=== PATIENT | female | born 1945 | race Caucasian/White ===

== ENCOUNTER 2017-12-07 10:31 | Emergency (ER) | payer MEDICARE ==
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
[2017-12-07] MEDS: Albuterol/Ipratropium 3.0-0.5 MG/3 ML Neb Soln NEB ONE (12:18)
--- NOTE | 2017-12-07 12:39 | CR ---
Chest: Portable view of the chest was obtained. Comparison: No prior study. Heart size and mediastinum are normal. Lungs are clear. Bony structures are grossly intact. Impression: 1. Nothing acute is identified on portable chest x-ray. Diagnostic code #1
[2017-12-07] MEDS: Acetaminophen 325 MG Tab PO STA (12:43)
== END 2017-12-07 15:40 | disposition home or self-care (01) ==
LOC: JD.ED 10:31
DX: T59.891A Toxic effect of other specified gases, fumes and vapors, accidental (unintentional), initial encounter (principal); J68.8 Other respiratory conditions due to chemicals, gases, fumes and vapors; I10 Essential (primary) hypertension; J45.909 Unspecified asthma, uncomplicated; Z79.899 Other long term (current) drug therapy
CPT/HCPCS: 36415; 71045; 80053; 82553; 83735; 83880; 84484; 85025; 93005; 99285; A9270; 93010; 99284-25

== ENCOUNTER 2017-12-19 15:01 | Emergency (ER) | payer MEDICARE ==
[2017-12-19] MEDS ORDERED: predniSONE 20 MG Tab PO ONE (15:44)
[2017-12-19] MEDS ORDERED: Ketorolac 60 MG/2 ML SDV IM ONE (15:44)
[2017-12-19] MEDS ORDERED: Acetaminophen/HYDROcodone 325-5 MG Tab PO ONE (15:44)
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
== END 2017-12-19 19:30 | disposition home or self-care (01) ==
LOC: JD.ED 15:01
DX: M54.41 Lumbago with sciatica, right side (principal); I10 Essential (primary) hypertension; J45.909 Unspecified asthma, uncomplicated; Z79.899 Other long term (current) drug therapy
CPT/HCPCS: 96372; 99284; A9270; J1885; 99283

== ENCOUNTER 2019-03-01 23:09 | Emergency (ER) | payer MEDICARE, MEDICAID ==
--- NOTE | 2019-03-01 23:51 | EDM.PDOC ---
ED HPI GENERAL MEDICAL PROBLEM - General Chief Complaint: Allergic Reaction Stated Complaint: ALLERGIC REACTION Time Seen by Provider: 03/01/19 23:51 Source of Information: Reports: Patient, Other History Limitations: Reports: No Limitations (Friends) - History of Present Illness INITIAL COMMENTS - FREE TEXT/NARRATIVE: 73-year-old female presents the ED with diffuse swelling of her upper lip and her tongue. She states her upper lip became somewhat swollen one half side last evening but today the entire lip is become more swollen as the day has gone on and she appreciated that her tongue was swelling as well. She has no trouble with phonation or swallowing. Any discomfort in her chest wheezing or shortness of breath. No urticaria or erythema of the skin. She had to be persuaded quite aggressively by her friends to come to the hospi One of her Friends gave her 50 mg of Kristin 2 hours before coming to the ED and hasn't made any difference. Onset: Gradual Onset Date: 02/28/19 (First noted half of her lip swelling up a bit last evening.) Duration: Hour(s):, Getting Worse Location: Reports: Face (Swelling of her upper lip mildly of her lower lip and her tongue. I.e. angioedema). Denies: Chest Quality: Reports: Other (Feels pressure some numbness and tingling. 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: Other (see below) (Benadryl 50 mg about 2 hours ago) - Related Data Allergies Allergy/AdvReac Type Severity Reaction Status Date / Time No Known Allergies Allergy Verified 03/01/19 23:16 Home Meds: Home Meds Cholecalciferol (Vitamin D3) [Vitamin D3] 4,000 unit PO DAILY 12/07/17 [History] Doxepin [SINEquan] 10 mg PO BEDTIME PRN 12/07/17 [History] Fesoterodine Fumarate [Toviaz] 8 mg PO DAILY 12/07/17 [History] Furosemide [Lasix] 20 mg PO DAILY PRN 12/07/17 [History] Levalbuterol Tartrate [Xopenex HFA] 1 puff INH Q6H PRN 12/07/17 [History] Losartan Potassium 100 mg PO DAILY 12/07/17 [History] Magnesium Chloride [Slow-Mag] 71.5 mg PO DAILY #60 tablet. 12/07/17 [Rx] Metoprolol Succinate [Toprol XL 100mg] 50 mg PO DAILY 12/07/17 [History] Venlafaxine HCl [Venlafaxine ER] 150 mg PO DAILY 12/07/17 [History] Acetaminophen/HYDROcodone [[place]land 325-5 MG] 1 tab PO Q6H PRN #20 tablet 12/19/17 [Rx] Fluticasone Propionate [Flonase] 1 spray NASBOTH DAILY 12/19/17 [History] Methyl B12 Plus. 1 tab PO DAILY 12/19/17 [History] Prednisone [IJD: predniSONE] 20 mg PO WITHBREAKFAST #5 tab 12/19/17 [Rx] Past Medical History HEENT History: Reports: Impaired Vision Other HEENT History: Wears glasses Cardiovascular History: Reports: Hypertension Respiratory History: Reports: Asthma [employer] History: Reports: Endometriosis Musculoskeletal History: Reports: Osteoarthritis Psychiatric History: Reports: Anxiety - Past Surgical History HEENT Surgical History: Reports: Tonsillectomy GI Surgical History: Reports: Colonoscopy, EGD Female Surgical History: Reports: Hysterectomy, Salpingo-Oophorectomy Social & Family History - Tobacco Use Smoking Status *Q: Former Smoker Used Tobacco, but Quit: Yes Month/Year Tobacco Last Used: 1998 - Recreational Drug Use Recreational Drug Use: No - Living Situation & Occupation Living situation: Reports: Occupation: Retired ED ROS ALLERGIC REACTION - Review of Systems Review Of Systems: See Below Constitutional: Denies: Fever, Chills, Malaise, Weakness, Fatigue, Decreased Appetite, Weight Loss HEENT: Reports: Glasses Respiratory: Denies: Shortness of Breath, Wheezing, Pleuritic Chest Pain, Cough , Sputum Cardiovascular: Reports: Blood Pressure Problem. Denies: Chest Pain, Claudication, Dyspnea on Exertion, Edema, Lightheadedness, Orthopnea Endocrine: Reports: No Symptoms GI/Abdominal: Reports: No Symptoms : Reports: Frequency (On Lasix.) Musculoskeletal: Reports: Joint Pain (Knees hips and lower back at times) Skin: Reports: Other (Swelling of her upper and lower lip and her tongue.) Neurological: Reports: No Symptoms Psychiatric: Reports: No Symptoms ED EXAM GENERAL NO PERIP PULSE - Physical Exam Exam: See Below Exam Limited By: No Limitations General Appearance: Alert, WD/WN, No Apparent Distress, Other (She has obvious swelling of her upper lip both sides. The lower lip is listed but less noticeable to be mildly swollen.) Eye Exam: Bilateral Eye: Normal Inspection, Periorbital Changes (No periorbital edema or swelling.) Ears: Normal External Exam Nose: Normal Inspection Throat/Mouth: Other (Tongue is mildly swollen and thickened. No airway compromise) Head: Atraumatic (. The floor of her mouth is normal. The uvula is normal as well.), Normocephalic Neck: Normal Inspection, Supple, Non-Tender, Full Range of Motion, Carotid Bruit (She has a right carotid bruit but is referred from her heart as she has aortic stenosis murmur grade 2/6.). No: Lymphadenopathy (L), Lymphadenopathy (R ) Respiratory/Chest: No Respiratory Distress, Lungs Clear, Normal Breath Sounds, No Accessory Muscle Use Cardiovascular: Normal Peripheral Pulses, Regular Rate, Rhythm, No Edema, No Gallop, Systolic Murmur (Patient has a grade 2/6 systolic ejection murmur which is holistic and is best heard left lower sternal border but radiates to the right side of the sternum and into her right carotid artery. Patient is not aware that she has a murmur. Patient advised that she needs follow-up and an echocardiogram.) GI/Abdominal: Normal Bowel Sounds, Soft, Non-Tender, No Organomegaly, No Abnormal Bruit, No Mass, Pelvis Stable Back Exam: Normal Inspection, Full Range of Motion Extremities: Normal Inspection, Normal Range of Motion, Non-Tender. No: Pedal Edema Neurological: Alert, Oriented, CN II-XII Intact, Normal Cognition, Normal Gait Psychiatric: Normal Affect, Normal Mood Skin Exam: Warm, Dry, Intact, Normal Color, No Rash, Other (Angioedema involving upper lip and to a lesser extent her lower lip and her tongue.) Course - Vital Signs Last Recorded V/S: Last Vital Signs Temp 37.0 C 03/01/19 23:17 Pulse 78 03/01/19 23:17 Resp 18 03/01/19 23:17 BP 151/79 H 03/01/19 23:17 Pulse Ox 97 03/01/19 23:17 - Radiology Interpretation Free Text/Narrative:: 73-year-old female presents to the ED with gradually swelling of her right clive- lip and then both sides of her upper lip over today. She is also noted some mild swelling of her lower lip and upper tongue over the last 16 hours. No trouble with phonation or swallowing or eating. Examination confirms angioedema of the lips and tongue and no significant swelling of the floor the mouth or the uvula no evidence of airway compromise. On examination of her med list she is on losartan. This likely referred represents an allergy to this medication with angioedema edema developing. She is currently on 100 mg a day. It is to be stopped and she was advised that the swelling of her lips and tongue should dissipate gradually over the next 36-72 hours. His get worse she is to return to the ED where she would receive fresh frozen plasma. This is highly unlikely since symptoms started last evening. The problem is she did take her losartan dosage early this morning. She will follow-up in the clinic in a week's time to see if she will need additional medication to control her blood pressure and she is going to need follow-up echocardiogram due to aortic stenosis murmur identified on exam today. Advised she cannot take angiotensin receptor blockers or angiotensin-converting enzyme inhibitors in the future. Departure - Departure Time of Disposition: 00:14 Disposition: Home, Self-Care 01 Condition: Fair Clinical Impression: Angioedema of lips Qualifiers: Encounter type: initial encounter Qualified Code(s): T78.3XXA - Angioneurotic edema, initial encounter - Discharge Information *PRESCRIPTION DRUG MONITORING PROGRAM REVIEWED*: Not Applicable *COPY OF PRESCRIPTION DRUG MONITORING REPORT IN PATIENT [place]ENRO[place]: Not Applicable Instructions: Angioedema, [id number] Referrals: Marilyn Bai NP [Primary Care Provider] - Forms: ED Department Discharge Additional Instructions: Evaluation in the emergency room tonight in regards to noted swelling particularly of your upper lip involving both sides of the lip mildly of the lower lip and mildly of the tongue. This is an allergic reaction, angioedema. It usually affects? The tongue and sometimes the floor the mouth and sometimes can compromise the airway. Symptoms started last evening but worse tonight. No evidence of any other allergic reaction involving the lungs or skin identified on exam. Erazo is strongly suspected this allergic reaction is to one of your medications called Losartan. This medication is called an ARB--which stands for angiotensin receptor philip. There is another family called angiotensin- converting enzyme inhibitors which we call HALIMA-inhibitors. Both of these medications can cause angioedema involving the tongue and lips etc. This medication is therefore to be stopped. You're lips and tongue will likely return to normal in the next 36-72 hours. If swelling of the tongue worsens or you are having any trouble breathing or swallowing he would need to return to the emergency room immediately. This is felt to be unlikely to occur since symptoms started yesterday and have only gradually intensified. He will need to follow-up with your personal care physician in the proximally 7-10 days time to have a blood pressure check to see if they losartan medication needs to be replaced by another pressure pill. You are considered allergic to all halima inhibitors and ARB medications.
== END 2019-03-02 00:38 | disposition home or self-care (01) ==
LOC: JD.ED 23:09
DX: T78.3XXA Angioneurotic edema, initial encounter (principal); I10 Essential (primary) hypertension; F41.9 Anxiety disorder, unspecified; Z79.899 Other long term (current) drug therapy; Z87.891 Personal history of nicotine dependence
CPT/HCPCS: 99283

== ENCOUNTER 2019-06-25 13:32 | Inpatient (IN) | payer MEDICARE, MEDICAID ==
--- NOTE | 2019-06-25 15:39 | CT ---
Head CT Technique: Multiple axial sections through the brain were obtained. Intravenous contrast was not utilized. Comparison: No previous intracranial imaging. Findings: Ventricles along with basal cisterns and sulci over the convexities are mildly prominent. No abnormal parenchymal densities are seen. No evidence of intracranial hemorrhage. No midline shift or mass effect is seen. Bone window settings were reviewed which show the visualized mastoid sinuses and paranasal sinuses to appear clear. No acute calvarial abnormality is seen. Impression: 1. Nothing acute is appreciated on noncontrast head CT exam. Mild generalized atrophy is seen. Diagnostic code #2
--- NOTE | 2019-06-25 16:01 | EDM.PDOC ---
ED HPI GENERAL MEDICAL PROBLEM - General Chief Complaint: General Stated Complaint: [facility] Time Seen by Provider: 06/25/19 15:06 Source of Information: Reports: Patient History Limitations: Reports: No Limitations - History of Present Illness INITIAL COMMENTS - FREE TEXT/NARRATIVE: Patient is a 73-year-old female who presents the ED complaining of left eye swelling and bruising after falling yesterday while using a walker. It is unknown when the patient fell. She states she was walking to the bathroom to get cleaned up and believes the walker got caught on something causing her to lose her balance and fall forward hitting her face on the floor. She denies any loss of conscious. She denies any neck pain, back pain, pain to extremities, chest pain, shortness of breath, dysuria, palpitations, dizziness, or any pain to the extremities after the fall or prior. She was unable to get up on her own accord. She does carry a history of increased swelling to her lower extremities with venous stasis ulcers. She states the left leg is normally more swollen in comparison to the right. Again she is just more sore due to the inability to get up on her own accord. She was found by her the home health nurse and also her neighbor this morning. Patient recalls all events prior and after. She is on no blood thinners. She has been taking Lasix as prescribed for the edema to her lower extremities. Generalized Pain Score (Numeric/FACES): 8 - Related Data Allergies Allergy/AdvReac Type Severity Reaction Status Date / Time No Known Allergies Allergy Verified 03/01/19 23:16 Home Meds: Home Meds Cholecalciferol (Vitamin D3) [Vitamin D3] 4,000 unit PO DAILY 12/07/17 [History] Doxepin [SINEquan] 10 mg PO BEDTIME PRN 12/07/17 [History] Fesoterodine Fumarate [Toviaz] 8 mg PO DAILY 12/07/17 [History] Furosemide [Lasix] 20 mg PO DAILY PRN 12/07/17 [History] Levalbuterol Tartrate [Xopenex HFA] 1 puff INH Q6H PRN 12/07/17 [History] Losartan Potassium 100 mg PO DAILY 12/07/17 [History] Magnesium Chloride [Slow-Mag] 71.5 mg PO DAILY #60 tablet. 12/07/17 [Rx] Metoprolol Succinate [Toprol XL 100mg] 50 mg PO DAILY 12/07/17 [History] Venlafaxine HCl [Venlafaxine ER] 150 mg PO DAILY 12/07/17 [History] Acetaminophen/HYDROcodone [[place] 325-5 MG] 1 tab PO Q6H PRN #20 tablet 12/19/17 [Rx] Fluticasone Propionate [Flonase] 1 spray NASBOTH DAILY 12/19/17 [History] Methyl B12 Plus. 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 ED EXAM, GENERAL - Physical Exam Exam: See Below Exam Limited By: No Limitations General Appearance: Alert, WD/WN, No Apparent Distress Eye Exam: Bilateral Eye: Normal Inspection, Nystagmus (none noted), PERRL Ears: Hearing Grossly Normal Nose: Normal Inspection, Normal Mucosa, No Blood Throat/Mouth: Normal Inspection, Normal Oropharynx, Normal Voice, No Airway Compromise Head: Normocephalic, Facial Swelling (Left orbit), Facial Tenderness (Left orbit with black eye present.) Neck: Normal Inspection, Supple, Non-Tender, Full Range of Motion Respiratory/Chest: No Respiratory Distress, Lungs Clear, Normal Breath Sounds, No Accessory Muscle Use, Chest Non-Tender Cardiovascular: Normal Peripheral Pulses, Regular Rate, Rhythm, No Murmur Peripheral Pulses: 2+: Radial (L), Radial (R) GI/Abdominal: Normal Bowel Sounds, Soft, Non-Tender, No Organomegaly, No Distention Back Exam: Normal Inspection Extremities: Normal Range of Motion, Pedal Edema, Other (Venous stasis ulcers with redness present to the lower extremities bilaterally. Increasing pain with palpation of the posterior aspect of her legs with no ecchymosis or increased warmth noted.) Neurological: Alert, Oriented, CN II-XII Intact, Normal Cognition, No Motor/ Sensory Deficits Psychiatric: Normal Affect, Normal Mood Skin Exam: Warm, Dry Course - Vital Signs Last Recorded V/S: Last Vital Signs Temp 98 F 06/25/19 21:12 Pulse 66 06/25/19 21:12 Resp 16 06/25/19 21:12 BP 158/74 H 06/25/19 21:24 Pulse Ox 95 06/25/19 21:12 - Orders/Labs/Meds Orders: Active Orders 24 hr Category Date Time Status Admission Status [Patient Status] [ADT] Routine ADT 06/25/19 20:17 Active EKG Documentation Completion [RC] ASDIRECTED Care 06/25/19 13:53 Active Knee 3V Lt [CR] Stat Exams 06/25/19 19:12 Taken Knee 3V Rt [CR] Stat Exams 06/25/19 18:31 Taken CULTURE URINE [RM] Stat Lab 06/25/19 20:11 Ordered EKG 12 Lead [EK] Stat Ther 06/25/19 13:53 Ordered Medication Orders Acetaminophen (Tylenol) 650 mg PO Q4H PRN PRN Reason: Pain (Mild 1-3)/fever Albuterol/Ipratropium (Duoneb 3.0-0.5 Mg/3 Ml) 3 ml NEB Q4H PRN PRN Reason: Shortness Of Breath/wheezing Bisacodyl (Dulcolax) 5 mg PO DAILY PRN PRN Reason: Constipation Docusate Sodium (Colace) 100 mg PO BID PRN PRN Reason: Constipation Enoxaparin Sodium (Lovenox) 40 mg SUBCUT DAILY [facility] Hydralazine HCl (Apresoline) 20 mg IVPUSH Q4H PRN PRN Reason: Hypertension Hydromorphone HCl (Dilaudid) 0.25 mg IVPUSH Q2H PRN PRN Reason: Pain (severe 7-10) Promethazine HCl 6.25 mg/ (Sodium Chloride) 50.25 mls @ 100 mls/hr IV Q6H PRN PRN Reason: Nausea/Vomiting Sodium Chloride (Normal Saline) 1,000 mls @ 50 mls/hr IV ASDIRECTED [facility] Ceftriaxone Sodium 1 gm/ (Sodium Chloride) 100 mls @ 200 mls/hr IV Q24H [facility] Metoprolol Tartrate (Lopressor) 5 mg IVPUSH Q4H PRN PRN Reason: Tachycardia Ondansetron HCl (Zofran) 4 mg IV Q6H PRN PRN Reason: Nausea/Vomiting Pantoprazole Sodium (Protonix Iv) 40 mg IV Q12HR [facility] Polyethylene Glycol (Miralax) 17 gm PO DAILY PRN PRN Reason: Constipation Saccharomyces Boulardii (Florastor) 250 mg PO DAILY [facility] Senna/Docusate Sodium (Senna Plus) 1 tab PO BID PRN PRN Reason: Constipation Temazepam (Restoril) 15 mg PO BEDTIME PRN PRN Reason: Sleep Labs: Laboratory Tests 06/25/19 06/25/19 06/25/19 Range/Units 14:34 14:34 14:34 WBC 6.95 (3.98-10.04) K/mm3 RBC 3.82 L (3.98-5.22) M/mm3 Hgb 11.9 (11.2-15.7) gm/dl Hct 36.9 (34.1-44.9) % MCV 96.6 H (79.4-94.8) fl MCH 31.2 (25.6-32.2) pg MCHC 32.2 (32.2-35.5) g/dl RDW Std Deviation 47.8 H (36.4-46.3) fL Plt Count 196 (182-369) K/mm3 MPV 9.9 (9.4-12.3) fl Neut % (Auto) 55.1 (34.0-71.1) % Lymph % (Auto) 31.9 (19.3-51.7) % [place] % (Auto) 11.7 (4.7-12.5) % Eos % (Auto) 0.9 (0.7-5.8) Baso % (Auto) 0.3 (0.1-1.2) % Neut # (Auto) 3.83 (1.56-6.13) K/mm3 Lymph # (Auto) 2.22 (1.18-3.74) K/mm3 [place] # (Auto) 0.81 H (0.24-0.36) K/mm3 Eos # (Auto) 0.06 (0.04-0.36) K/mm3 Baso # (Auto) 0.02 (0.01-0.08) K/mm3 Sodium 142 (136-145) mEq/L Potassium 3.5 (3.5-5.1) mEq/L Chloride 103 (98-107) mEq/L Carbon Dioxide 28 (21-32) mEq/L Anion Gap 14.5 (5-15) BUN 23 H (7-18) mg/dL Creatinine 1.0 (0.55-1.02) mg/dL Est Cr Clr Drug Dosing 34.91 mL/min Estimated GFR (MDRD) 54 (>60) mL/min BUN/Creatinine Ratio 23.0 H (14-18) Glucose 106 (83-115) mg/dL Calcium 8.8 (8.5-10.1) mg/dL Magnesium (1.8-2.4) mg/dl Total Bilirubin 1.5 H (0.2-1.0) mg/dL AST 24 (15-37) U/L ALT 12 L (14-59) U/L Alkaline Phosphatase 85 (46-116) U/L Creatine Kinase (26-192) U/L Troponin I 0.052 (0.00-0.056) ng/mL C-Reactive Protein 1.7 H* (<1.0) mg/dL Total Protein 6.1 L (6.4-8.2) g/dl Albumin 3.3 L (3.4-5.0) g/dl Globulin 2.8 gm/dL Albumin/Globulin Ratio 1.2 (1-2) Urine Color (Yellow) Urine Appearance (Clear) Urine pH (5.0-8.0) Ur Specific [place] (1.005-1.030) Urine Protein (Negative) Urine Glucose (UA) (Negative) Urine Ketones (Negative) Urine Occult Blood (Negative) Urine Nitrite (Negative) Urine Bilirubin (Negative) Urine Urobilinogen (0.2-1.0) Ur Leukocyte Esterase (Negative) Urine RBC (0-5) /hpf Urine WBC (0-5) /hpf Ur Squamous Epith Cells (0-5) /hpf Urine Bacteria (FEW) /hpf Urine Mucus (FEW) /hpf 06/25/19 06/25/19 06/25/19 Range/Units 14:34 14:56 16:15 WBC (3.98-10.04) K/mm3 RBC (3.98-5.22) M/mm3 Hgb (11.2-15.7) gm/dl Hct (34.1-44.9) % MCV (79.4-94.8) fl MCH (25.6-32.2) pg MCHC (32.2-35.5) g/dl RDW Std Deviation (36.4-46.3) fL Plt Count (182-369) K/mm3 MPV (9.4-12.3) fl Neut % (Auto) (34.0-71.1) % Lymph % (Auto) (19.3-51.7) % [place] % (Auto) (4.7-12.5) % Eos % (Auto) (0.7-5.8) Baso % (Auto) (0.1-1.2) % Neut # (Auto) (1.56-6.13) K/mm3 Lymph # (Auto) (1.18-3.74) K/mm3 [place] # (Auto) (0.24-0.36) K/mm3 Eos # (Auto) (0.04-0.36) K/mm3 Baso # (Auto) (0.01-0.08) K/mm3 Sodium (136-145) mEq/L Potassium (3.5-5.1) mEq/L Chloride (98-107) mEq/L Carbon Dioxide (21-32) mEq/L Anion Gap (5-15) BUN (7-18) mg/dL Creatinine (0.55-1.02) mg/dL Est Cr Clr Drug Dosing mL/min Estimated GFR (MDRD) (>60) mL/min BUN/Creatinine Ratio (14-18) Glucose (83-115) mg/dL Calcium (8.5-10.1) mg/dL Magnesium 1.1 L (1.8-2.4) mg/dl Total Bilirubin (0.2-1.0) mg/dL AST (15-37) U/L ALT (14-59) U/L Alkaline Phosphatase (46-116) U/L Creatine Kinase 363 H (26-192) U/L Troponin I (0.00-0.056) ng/mL C-Reactive Protein (<1.0) mg/dL Total Protein (6.4-8.2) g/dl Albumin (3.4-5.0) g/dl Globulin gm/dL Albumin/Globulin Ratio (1-2) Urine Color Yellow (Yellow) Urine Appearance Cloudy H (Clear) Urine pH 7.0 (5.0-8.0) Ur Specific [place] 1.020 (1.005-1.030) Urine Protein 1+ H (Negative) Urine Glucose (UA) Negative (Negative) Urine Ketones Trace H (Negative) Urine Occult Blood 1+ H (Negative) Urine Nitrite Positive H (Negative) Urine Bilirubin Negative (Negative) Urine Urobilinogen 0.2 (0.2-1.0) Ur Leukocyte Esterase 2+ H (Negative) Urine RBC 5-10 H (0-5) /hpf Urine WBC 50-75 H (0-5) /hpf Ur Squamous Epith Cells 0-5 (0-5) /hpf Urine Bacteria Many H (FEW) /hpf Urine Mucus Few (FEW) /hpf Meds: Medications Generic Name Dose Route Start Last Admin Trade Name Freq PRN Reason Stop Dose Admin Acetaminophen 650 mg 06/25/19 21:55 Tylenol PO Q4H PRN Pain (Mild 1-3)/fever Albuterol/Ipratropium 3 ml 06/25/19 21:55 Duoneb 3.0-0.5 Mg/3 Ml NEB Q4H PRN Shortness Of Breath/wheezing Bisacodyl 5 mg 06/25/19 21:55 Dulcolax PO DAILY PRN Constipation Docusate Sodium 100 mg 06/25/19 21:55 Colace PO BID PRN Constipation Enoxaparin Sodium 40 mg 06/26/19 09:00 Lovenox SUBCUT DAILY [facility] Hydralazine HCl 20 mg 06/25/19 22:01 Apresoline IVPUSH Q4H PRN Hypertension Hydromorphone HCl 0.25 mg 06/25/19 21:55 Dilaudid IVPUSH Q2H PRN Pain (severe 7-10) Promethazine HCl 6.25 mg/ 50.25 mls @ 100 mls/hr 06/25/19 21:55 Sodium Chloride IV Q6H PRN Nausea/Vomiting Sodium Chloride 1,000 mls @ 50 mls/hr 06/25/19 22:00 Normal Saline IV ASDIRECTED [facility] Ceftriaxone Sodium 1 gm/ 100 mls @ 200 mls/hr 06/26/19 09:00 Sodium Chloride IV Q24H [facility] Metoprolol Tartrate 5 mg 06/25/19 22:01 Lopressor IVPUSH Q4H PRN Tachycardia Ondansetron HCl 4 mg 06/25/19 21:55 Zofran IV Q6H PRN Nausea/Vomiting Pantoprazole Sodium 40 mg 06/26/19 09:00 Protonix Iv IV Q12HR [facility] Polyethylene Glycol 17 gm 06/25/19 21:55 Miralax PO DAILY PRN Constipation Saccharomyces Boulardii 250 mg 06/26/19 09:00 Florastor PO DAILY [facility] Senna/Docusate Sodium 1 tab 06/25/19 21:55 Senna Plus PO BID PRN Constipation Temazepam 15 mg 06/25/19 21:55 Restoril PO BEDTIME PRN Sleep Discontinued Medications Generic Name Dose Route Start Last Admin Trade Name Freq PRN Reason Stop Dose Admin Hydrocodone Bitart/Acetaminophen 1 tab 06/25/19 18:31 06/25/19 18:45 [place] 325-5 Mg PO 06/25/19 18:32 1 tab ONETIME ONE Administration Magnesium Sulfate 2 gm/ Premix 50 mls @ 25 mls/hr 06/25/19 17:12 06/25/19 17: 41 IV 06/25/19 19:11 25 mls/hr ONETIME ONE Administration Ceftriaxone Sodium 2 gm/ 100 mls @ 200 mls/hr 06/25/19 20:11 Sodium Chloride IV 06/25/19 20:40 ONETIME ONE Ceftriaxone Sodium 2 gm/ 100 mls @ 200 mls/hr 06/25/19 20:22 06/25/19 20:27 Sodium Chloride IV 06/25/19 20:51 200 mls/hr NOW ONE Administration - Re-Assessments/Exams Free Text/Narrative Re-Assessment/Exam: Due to multiple patients within the ED. Time to evaluation was delayed. Standing orders were placed: CBC, chem 14, CPK, CRP, and head CT without contrast ordered. EKG was ordered as well. Vital signs are stable. She is alert and oriented 3. I'm concerned about the pain to the posterior aspect her legs with increased swelling to the left and incomparision to the right. She has no history of DVT or PE. Her O2 sats are 92 % on room air she was placed on O2. She denies any chest pain or shortness of breath. I will go ahead and obtain a troponin, magnesium, and also vl duplex lower extremities. Head CT impression: Nothing acute is appreciated on noncontrast head CT exam. Generalized atrophy is seen. EKG impression: Sinus rhythm at a rate of 84 with a few PVCs. No acute ST changes noted. VL duplex impression: No evidence of deep venous thrombosis within either the right or left lower extremities. Popliteal cyst is noted on the left side. Labs reviewed: CMP was essentially normal. Patient's total bilirubin was 1.5. LFTs no concern. Troponin 0.052. CRP is 1.7. CK is 363. Magnesium is 1.1. CBC essentially normal. UA has been ordered. I ordered 2 g of magnesium IV. Patient is on magnesium supplement. 06/25/19 18:15 No UA has been obtained at this point. Patient has no voiding symptomatology. I will discharge her home with instructions as documented. She will see her PCP in 2-3 days for reevaluation. Return precautions were discussed with the patient. She had no further questions concerns and agrees with plan. She feels safe on returning home. Patient is ready be discharged home and per nursing started complaining of right knee pain. Upon examination patient had no pain to the knee. All pain was along the posterior calf region bilaterally. Nursing staff has ordered a x-ray of the right knee and also one [place] 5-325 by mouth 1912 x-ray tech has come to do the x-ray of the right knee. Patient now complains of the left knee hurting. Left knee x-ray has been ordered. X-rays of the right knee and left knee reviewed with Dr. Asencio with no acute bony abnormalities. Final interpretation is pending. 2012 Per nursing staff patient is not safe to go home on her own accord. She had difficulty in standing from bedside. I have spoken with Dr. Garza. He will speak with social sciences lecturer to see if it will be difficult for placement. UA did come back positive for infection. Urine culture has been ordered. Ordered rocephin [address] Garza has called back and accepted the patient. Orders have been placed. Departure - Departure Time of Disposition: 17:11 Disposition: Admitted As Inpatient 64 Condition: Good Clinical Impression: Elevated CK, Muscle soreness, Status post fall, Contusion of unspecified part of head, initial encounter UTI (urinary tract infection) Qualifiers: Urinary tract infection type: site unspecified Hematuria presence: with hematuria Qualified Code(s): N39.0 - Urinary tract infection, site not specified - Discharge Information - My Orders Last 24 Hours: My Active Orders 06/25/19 13:53 EKG Documentation Completion [RC] ASDIRECTED EKG 12 Lead [EK] Stat 06/25/19 18:31 Knee 3V Rt [CR] Stat 06/25/19 19:12 Knee 3V Lt [CR] Stat 06/25/19 20:11 CULTURE URINE [RM] Stat 06/25/19 20:17 Admission Status [Patient Status] [ADT] Routine - Assessment/Plan Last 24 Hours: My Active Orders 06/25/19 13:53 EKG Documentation Completion [RC] ASDIRECTED EKG 12 Lead [EK] Stat 06/25/19 18:31 Knee 3V Rt [CR] Stat 06/25/19 19:12 Knee 3V Lt [CR] Stat 06/25/19 20:11 CULTURE URINE [RM] Stat 06/25/19 20:17 Admission Status [Patient Status] [ADT] Routine
--- NOTE | 2019-06-25 16:51 | US ---
Bilateral lower extremity deep venous ultrasound: Duplex and color flow imaging was obtained of the right and left common femoral, proximal greater saphenous, superficial femoral, popliteal, posterior tibial and peroneal veins. Findings: Compression not well seen within the posterior tibial and peroneal veins on both sides. Normal phasic flow in augmentation are seen within both these veins on both sides. Other vein show normal compression, phasic flow and augmentation. Popliteal cyst noted on the left side measuring 5.2 cm in greatest dimension. Impression: 1. No evidence of deep venous thrombosis within either the right or left lower extremities. 2. Popliteal cyst is noted on the left side. Diagnostic code #2
[2019-06-25] MEDS ORDERED: Magnesium Sulfate/Water 2 GM in Premix Bag 1 BAG IV ONE (17:12)
[2019-06-25] MEDS ORDERED: Acetaminophen/HYDROcodone 325-5 MG Tab PO ONE (18:31)
[2019-06-25] MEDS ORDERED: cefTRIAXone 2 GM in Sodium Chloride 0.9% 100 ML IV ONE ×2 (20:11→20:22)
[2019-06-25] MEDS ORDERED: Promethazine 6.25 MG in Sodium Chloride 0.9% 50 ML IV PRN (21:55)
[2019-06-25] MEDS ORDERED: Docusate Sodium 100 MG Cap PO PRN (21:55)
[2019-06-25] MEDS ORDERED: Bisacodyl 5 MG Tab PO PRN (21:55)
[2019-06-25] MEDS ORDERED: HYDROmorphone 0.5 MG/0.5 ML Syringe IVPUSH PRN (21:55)
[2019-06-25] MEDS ORDERED: Polyethylene Glycol 3350 Powder 17 GM Packet PO PRN (21:55)
[2019-06-25] MEDS ORDERED: Temazepam 15 MG Cap PO PRN (21:55)
[2019-06-25] MEDS ORDERED: Albuterol/Ipratropium 3.0-0.5 MG/3 ML Neb Soln NEB PRN (21:55)
[2019-06-25] MEDS ORDERED: Ondansetron 4 MG/2 ML SDV IV PRN (21:55)
[2019-06-25] MEDS ORDERED: Metoprolol Tartrate 5 MG/5 ML SDV IVPUSH PRN (22:01)
[2019-06-25] MEDS: Sodium Chloride 0.9% 1,000 ML IV SCH (23:56)
[2019-06-26] MEDS: Acetaminophen 325 MG Tab PO PRN (05:21)
[2019-06-26] MEDS: Enoxaparin 40 MG/0.4 ML Syringe SUBCUT SCH (08:45)
[2019-06-26] MEDS: cefTRIAXone 1 GM in Sodium Chloride 0.9% 100 ML IV SCH (08:45)
[2019-06-26] MEDS: Saccharomyces Boulardii (Probiotic) 250 MG Cap PO SCH (08:45)
--- NOTE | 2019-06-26 08:52 | PCM.HP.2 ---
H&P History of Present Illness - General Date of Service: 06/26/19 Admit Problem/Dx: Admission Diagnosis/Problem Admission Diagnosis/Problem Urinary tract infection Source of Information: Patient, Old Records, Provider, RN Notes Reviewed History Limitations: Reports: Physical Impairment - History of Present Illness Initial Comments - Free Text/Narative: This is a 73 yo elderly white female with past medical hx/o Impaired Vision, HTN , Asthma, OA/DJD, Stasis Dermatitis, Anxiety, Gait Instability and Morbid Obesity who presented to ED last night with complaints of left eye edema associated with ecchymosis after sustaining a mild traumatic fall. The incident was unwitnessed and unknown. However she states she was on her way to the bathroom using her walker and when something caught on to it. As a result, she lost her balance and fell forward. She denies any prodromal symptoms. She hit her head on her way down to the floor. She denies any loss of bladder or bowel control. No report of neurological complaints. Her initial work up in ED showed an unremarkable CBC. Her Chemistry was significant for BUN of 23, Mg of 1.1, Total Bilirubin of 1.5, ALT of 12, CPK of 363, CRP of 1.7, Total Protein of 6.1 and Albumin of 3.3. Her UA showed UTI. Her Head CT scan report read as nothing acute is appreciated. Her Duplex U/S report read as no evidence of DVT but left popliteal cyst. Her B/l Knee x-rays report read as osteopenia with nothing acute appreciated. Patient was admitted overnight for treatment of UTI and evaluation of recent fall. Generalized Pain Score (Numeric/FACES): 8 - Related Data Allergies/Adverse Reactions: Allergies Allergy/AdvReac Type Severity Reaction Status Date / Time No Known Allergies Allergy Verified 03/01/19 23:16 Home Medications: Home Meds Doxepin [SINEquan] 10 mg PO BEDTIME 12/07/17 [History] Fesoterodine Fumarate [Toviaz] 8 mg PO DAILY 12/07/17 [History] Furosemide [Lasix] 20 mg PO DAILY PRN 12/07/17 [History] Levalbuterol Tartrate [Xopenex HFA] 2 puff INH Q6H PRN 12/07/17 [History] Metoprolol Succinate [Toprol XL 100mg] 50 mg PO DAILY 12/07/17 [History] Venlafaxine HCl [Venlafaxine ER] 150 mg PO DAILY 12/07/17 [History] Fluticasone Propionate [Flonase] 1 spray NASBOTH DAILY 12/19/17 [History] Cyanocobalamin (Vitamin B-12) [Vitamin B-12] 500 mcg PO DAILY 06/26/19 [History] Famotidine [Pepcid AC] 10 mg PO ACBREAKFAST 06/26/19 [History] Past Medical History HEENT History: Reports: Impaired Vision Other HEENT History: Wears glasses Cardiovascular History: Reports: Hypertension Respiratory History: Reports: Asthma Gastrointestinal History: Reports: Chronic Constipation Genitourinary History: Reports: Urinary Incontinence SITE SURVEYOR History: Reports: Endometriosis Musculoskeletal History: Reports: Osteoarthritis Neurological History: Reports: None Psychiatric History: Reports: Anxiety Endocrine/Metabolic History: Reports: Obesity/BMI 30+ Immunologic History: Reports: None Oncologic (Cancer) History: Reports: None Dermatologic History: Reports: Other (See Below) Other Dermatologic History: sentitive skin, "break out easy" - Past Surgical History HEENT Surgical History: Reports: Tonsillectomy GI Surgical History: Reports: Colonoscopy, EGD Female Surgical History: Reports: Hysterectomy, Salpingo-Oophorectomy Social & Family History - Family History Family Medical History: Noncontributory - Tobacco Use Smoking Status *Q: Former Smoker Used Tobacco, but Quit: Yes Month/Year Tobacco Last Used: 1998 - Caffeine Use Caffeine Use: Reports: Coffee, Tea - Recreational Drug Use Recreational Drug Use: No - Living Situation & Occupation Living situation: Reports: Occupation: Retired H&P Review of Systems - Review of Systems: Review Of Systems: ROS reveals no pertinent complaints other than HPI. General: Reports: Weakness. Denies: Fever, Chills, Malaise, Fatigue HEENT: Reports: Other (left eye edema and bruising ). Denies: Eye Pain, Headaches, Sinus Congestion, Visual Changes Cardiovascular: Denies: Chest Pain, Dyspnea on Exertion, Lightheadedness Gastrointestinal: Denies: Abdominal Pain, Decreased Appetite, Nausea, Vomiting Genitourinary: Reports: No Symptoms Musculoskeletal: Reports: No Symptoms Skin: Reports: Bruising Psychiatric: Denies: Confusion, Mood Lability, Anxiety, Agitation, Suicidal Ideation Neurological: Reports: Weakness, Gait Disturbance. Denies: Confusion Hematologic/Lymphatic: Reports: No Symptoms Immunologic: Reports: No Symptoms Review of Systems Comment:: She states "I feel better than when I came to the emergency room" Exam - Exam Exam: See Below - Vital Signs Vital Signs: Last Vital Signs Temp 37.1 C 06/26/19 04:19 Pulse 75 06/26/19 04:27 Resp 18 06/26/19 04:19 BP 147/57 H 06/26/19 04:19 Pulse Ox 93 L 06/26/19 04:27 Weight: 120.973 kg - Exam General: Alert, Oriented, Other (Morbidly Obese) HEENT: Conjunctiva Clear, EACs Clear, EOMI, Hearing Intact, Mucosa Moist & [place] , Nares Patent, Normal Nasal Septum, Posterior Pharynx Clear, Pupils Equal, Other (right noris-orbital edema and echymoses) Neck: Supple, Trachea Midline Lungs: Clear to Auscultation, Normal Respiratory Effort Cardiovascular: Regular Rate, Regular Rhythm GI/Abdominal Exam: Normal Bowel Sounds, Soft, Non-Tender, No Organomegaly, No Distention, No Abnormal Bruit, No Mass, Other (Obese) (Female) Exam: Deferred Rectal (Female) Exam: Deferred Back Exam: Normal Inspection, Decreased Range of Motion Extremities: Normal Inspection, Normal Range of Motion, Non-Tender, No Pedal Edema, Normal Capillary Refill Peripheral Pulses: 1+: Dorsalis Pedis (L) Skin: Warm, Dry, Intact Skin Alteration Location (Drawings Not To Scale): 1 - erythema, thickened skin. dry scab 2 - erythema, thickened skin. dry scab Neuro Extensive - Mental Status: Oriented x3, Normal Cognition, Memory Intact Neuro Extensive - Motor, Sensory, Reflexes: CN II-XII Intact (limited but grossly intact), Abnormal Gait Psychiatric: Alert, Normal Affect, Normal Mood - Patient Data Lab Results Last 24 hrs: Laboratory Results - last 24 hr 06/25/19 06/25/19 06/25/19 Range/Units 14:34 14:34 14:34 WBC 6.95 (3.98-10.04) K/mm3 RBC 3.82 L (3.98-5.22) M/mm3 Hgb 11.9 (11.2-15.7) gm/dl Hct 36.9 (34.1-44.9) % MCV 96.6 H (79.4-94.8) fl MCH 31.2 (25.6-32.2) pg MCHC 32.2 (32.2-35.5) g/dl RDW Std Deviation 47.8 H (36.4-46.3) fL Plt Count 196 (182-369) K/mm3 MPV 9.9 (9.4-12.3) fl Neut % (Auto) 55.1 (34.0-71.1) % Lymph % (Auto) 31.9 (19.3-51.7) % [place] % (Auto) 11.7 (4.7-12.5) % Eos % (Auto) 0.9 (0.7-5.8) Baso % (Auto) 0.3 (0.1-1.2) % Neut # (Auto) 3.83 (1.56-6.13) K/mm3 Lymph # (Auto) 2.22 (1.18-3.74) K/mm3 [place] # (Auto) 0.81 H (0.24-0.36) K/mm3 Eos # (Auto) 0.06 (0.04-0.36) K/mm3 Baso # (Auto) 0.02 (0.01-0.08) K/mm3 Sodium 142 (136-145) mEq/L Potassium 3.5 (3.5-5.1) mEq/L Chloride 103 (98-107) mEq/L Carbon Dioxide 28 (21-32) mEq/L Anion Gap 14.5 (5-15) BUN 23 H (7-18) mg/dL Creatinine 1.0 (0.55-1.02) mg/dL Est Cr Clr Drug Dosing 34.91 mL/min Estimated GFR (MDRD) 54 (>60) mL/min BUN/Creatinine Ratio 23.0 H (14-18) Glucose 106 (83-115) mg/dL Calcium 8.8 (8.5-10.1) mg/dL Magnesium (1.8-2.4) mg/dl Total Bilirubin 1.5 H (0.2-1.0) mg/dL AST 24 (15-37) U/L ALT 12 L (14-59) U/L Alkaline Phosphatase 85 (46-116) U/L Creatine Kinase (26-192) U/L Troponin I 0.052 (0.00-0.056) ng/mL C-Reactive Protein 1.7 H* (<1.0) mg/dL Total Protein 6.1 L (6.4-8.2) g/dl Albumin 3.3 L (3.4-5.0) g/dl Globulin 2.8 gm/dL Albumin/Globulin Ratio 1.2 (1-2) Urine Color (Yellow) Urine Appearance (Clear) Urine pH (5.0-8.0) Ur Specific [place] (1.005-1.030) Urine Protein (Negative) Urine Glucose (UA) (Negative) Urine Ketones (Negative) Urine Occult Blood (Negative) Urine Nitrite (Negative) Urine Bilirubin (Negative) Urine Urobilinogen (0.2-1.0) Ur Leukocyte Esterase (Negative) Urine RBC (0-5) /hpf Urine WBC (0-5) /hpf Ur Squamous Epith Cells (0-5) /hpf Urine Bacteria (FEW) /hpf Urine Mucus (FEW) /hpf 06/25/19 06/25/19 06/25/19 Range/Units 14:34 14:56 16:15 WBC (3.98-10.04) K/mm3 RBC (3.98-5.22) M/mm3 Hgb (11.2-15.7) gm/dl Hct (34.1-44.9) % MCV (79.4-94.8) fl MCH (25.6-32.2) pg MCHC (32.2-35.5) g/dl RDW Std Deviation (36.4-46.3) fL Plt Count (182-369) K/mm3 MPV (9.4-12.3) fl Neut % (Auto) (34.0-71.1) % Lymph % (Auto) (19.3-51.7) % [place] % (Auto) (4.7-12.5) % Eos % (Auto) (0.7-5.8) Baso % (Auto) (0.1-1.2) % Neut # (Auto) (1.56-6.13) K/mm3 Lymph # (Auto) (1.18-3.74) K/mm3 [place] # (Auto) (0.24-0.36) K/mm3 Eos # (Auto) (0.04-0.36) K/mm3 Baso # (Auto) (0.01-0.08) K/mm3 Sodium (136-145) mEq/L Potassium (3.5-5.1) mEq/L Chloride (98-107) mEq/L Carbon Dioxide (21-32) mEq/L Anion Gap (5-15) BUN (7-18) mg/dL Creatinine (0.55-1.02) mg/dL Est Cr Clr Drug Dosing mL/min Estimated GFR (MDRD) (>60) mL/min BUN/Creatinine Ratio (14-18) Glucose (83-115) mg/dL Calcium (8.5-10.1) mg/dL Magnesium 1.1 L (1.8-2.4) mg/dl Total Bilirubin (0.2-1.0) mg/dL AST (15-37) U/L ALT (14-59) U/L Alkaline Phosphatase (46-116) U/L Creatine Kinase 363 H (26-192) U/L Troponin I (0.00-0.056) ng/mL C-Reactive Protein (<1.0) mg/dL Total Protein (6.4-8.2) g/dl Albumin (3.4-5.0) g/dl Globulin gm/dL Albumin/Globulin Ratio (1-2) Urine Color Yellow (Yellow) Urine Appearance Cloudy H (Clear) Urine pH 7.0 (5.0-8.0) Ur Specific [place] 1.020 (1.005-1.030) Urine Protein 1+ H (Negative) Urine Glucose (UA) Negative (Negative) Urine Ketones Trace H (Negative) Urine Occult Blood 1+ H (Negative) Urine Nitrite Positive H (Negative) Urine Bilirubin Negative (Negative) Urine Urobilinogen 0.2 (0.2-1.0) Ur Leukocyte Esterase 2+ H (Negative) Urine RBC 5-10 H (0-5) /hpf Urine WBC 50-75 H (0-5) /hpf Ur Squamous Epith Cells 0-5 (0-5) /hpf Urine Bacteria Many H (FEW) /hpf Urine Mucus Few (FEW) /hpf 06/26/19 06/26/19 Range/Units 06:40 06:40 WBC 7.36 (3.98-10.04) K/mm3 RBC 3.68 L (3.98-5.22) M/mm3 Hgb 11.5 (11.2-15.7) gm/dl Hct 35.9 (34.1-44.9) % MCV 97.6 H (79.4-94.8) fl MCH 31.3 (25.6-32.2) pg MCHC 32.0 L (32.2-35.5) g/dl RDW Std Deviation 47.6 H (36.4-46.3) fL Plt Count 185 (182-369) K/mm3 MPV 10.1 (9.4-12.3) fl Neut % (Auto) 50.7 (34.0-71.1) % Lymph % (Auto) 34.6 (19.3-51.7) % [place] % (Auto) 11.5 (4.7-12.5) % Eos % (Auto) 3.1 (0.7-5.8) Baso % (Auto) 0.1 (0.1-1.2) % Neut # (Auto) 3.72 (1.56-6.13) K/mm3 Lymph # (Auto) 2.55 (1.18-3.74) K/mm3 [place] # (Auto) 0.85 H (0.24-0.36) K/mm3 Eos # (Auto) 0.23 (0.04-0.36) K/mm3 Baso # (Auto) 0.01 (0.01-0.08) K/mm3 Sodium 141 (136-145) mEq/L Potassium 3.5 (3.5-5.1) mEq/L Chloride 108 H (98-107) mEq/L Carbon Dioxide 28 (21-32) mEq/L Anion Gap 8.5 (5-15) BUN 20 H (7-18) mg/dL Creatinine 0.9 (0.55-1.02) mg/dL Est Cr Clr Drug Dosing TNP mL/min Estimated GFR (MDRD) > 60 (>60) mL/min BUN/Creatinine Ratio 22.2 H (14-18) Glucose 102 (83-115) mg/dL Calcium 8.9 (8.5-10.1) mg/dL Magnesium 1.3 L (1.8-2.4) mg/dl Total Bilirubin (0.2-1.0) mg/dL AST (15-37) U/L ALT (14-59) U/L Alkaline Phosphatase (46-116) U/L Creatine Kinase (26-192) U/L Troponin I (0.00-0.056) ng/mL C-Reactive Protein 2.4 H* (<1.0) mg/dL Total Protein (6.4-8.2) g/dl Albumin (3.4-5.0) g/dl Globulin gm/dL Albumin/Globulin Ratio (1-2) Urine Color (Yellow) Urine Appearance (Clear) Urine pH (5.0-8.0) Ur Specific [place] (1.005-1.030) Urine Protein (Negative) Urine Glucose (UA) (Negative) Urine Ketones (Negative) Urine Occult Blood (Negative) Urine Nitrite (Negative) Urine Bilirubin (Negative) Urine Urobilinogen (0.2-1.0) Ur Leukocyte Esterase (Negative) Urine RBC (0-5) /hpf Urine WBC (0-5) /hpf Ur Squamous Epith Cells (0-5) /hpf Urine Bacteria (FEW) /hpf Urine Mucus (FEW) /hpf Result Diagrams: 06/27/19 06:37 06/27/19 06:37 Problem List Initiated/Reviewed/Updated: Yes Orders Last 24hrs: Active Orders 24 hr Category Date Time Status Admission Status [Patient Status] [ADT] Routine ADT 06/25/19 20:17 Active EKG Documentation Completion [RC] ASDIRECTED Care 06/25/19 13:53 Active Height and Weight [RC] 04 Care 06/25/19 21:55 Active Intake and Output [RC] ,16 Care 06/25/19 21:55 Active Oxygen Therapy [RC] PRN Care 06/25/19 21:55 Active RT Aerosol Therapy [RC] ASDIRECTED Care 06/25/19 21:57 Active Up With Assistance [RC] ASDIRECTED Care 06/25/19 21:55 Active Up ad Sarah [RC] ASDIRECTED Care 06/25/19 21:55 Active VTE/DVT Education [RC] BID Care 06/25/19 21:55 Active Vital Signs [RC] Q4HR Care 06/25/19 21:55 Active Consult to Case Management/[employer] Colerer [CONS] Cons 06/25/19 21:55 Active Routine Consult to Surgical Territory Manager [CONS] Routine Cons 06/25/19 21:55 Active Consult to Spiritual Care [CONS] Routine Cons 06/25/19 21:55 Active OT Evaluation and Treatment [CONS] Routine Cons 06/25/19 21:55 Active PT Evaluation and Treatment [CONS] Routine Cons 06/25/19 21:55 Active Heart Healthy Diet [DIET] Diet 06/26/19 Breakfast Active Knee 3V Lt [CR] Stat Exams 06/25/19 19:12 Taken Knee 3V Rt [CR] Stat Exams 06/25/19 18:31 Taken BASIC METABOLIC PANEL,BMP [CHEM] AM Lab 06/27/19 05:11 Ordered BASIC METABOLIC PANEL,BMP [CHEM] AM Lab 06/28/19 05:11 Ordered BASIC METABOLIC PANEL,BMP [CHEM] AM Lab 06/29/19 05:11 Ordered BASIC METABOLIC PANEL,BMP [CHEM] AM Lab 06/30/19 05:11 Ordered C-REACTIVE PROTEIN [CHEM] AM Lab 06/27/19 05:11 Ordered C-REACTIVE PROTEIN [CHEM] AM Lab 06/28/19 05:11 Ordered C-REACTIVE PROTEIN [CHEM] AM Lab 06/29/19 05:11 Ordered C-REACTIVE PROTEIN [CHEM] AM Lab 06/30/19 05:11 Ordered CBC WITH AUTO DIFF [HEME] AM Lab 06/26/19 06:40 Results CBC WITH AUTO DIFF [HEME] AM Lab 06/27/19 05:11 Ordered CBC WITH AUTO DIFF [HEME] AM Lab 06/28/19 05:11 Ordered CBC WITH AUTO DIFF [HEME] AM Lab 06/29/19 05:11 Ordered CBC WITH AUTO DIFF [HEME] AM Lab 06/30/19 05:11 Ordered CULTURE BLOOD [BC] Stat Lab 06/25/19 22:26 Received CULTURE BLOOD [BC] Stat Lab 06/25/19 22:42 Received CULTURE URINE [RM] Stat Lab 06/25/19 20:11 Ordered MAGNESIUM [CHEM] AM Lab 06/27/19 05:11 Ordered MAGNESIUM [CHEM] AM Lab 06/28/19 05:11 Ordered MAGNESIUM [CHEM] AM Lab 06/29/19 05:11 Ordered MAGNESIUM [CHEM] AM Lab 06/30/19 05:11 Ordered Acetaminophen [Tylenol] Med 06/25/19 21:55 Active 650 mg PO Q4H PRN Albuterol/Ipratropium [DuoNeb 3.0-0.5 MG/3 ML] Med 06/25/19 21:55 Active 3 ml NEB Q4H PRN Bisacodyl [Dulcolax] Med 06/25/19 21:55 Active 5 mg PO DAILY PRN Docusate Sodium [Colace] Med 06/25/19 21:55 Active 100 mg PO BID PRN Docusate Sodium/Sennosides [Senna Plus] Med 06/25/19 21:55 Active 1 tab PO BID PRN Enoxaparin [Lovenox] Med 06/26/19 09:00 Active 40 mg SUBCUT DAILY HYDROmorphone [Dilaudid] Med 06/25/19 21:55 Active 0.25 mg IVPUSH Q2H PRN Metoprolol Tartrate [Lopressor] Med 06/25/19 22:01 Active 5 mg IVPUSH Q4H PRN Ondansetron [Zofran] Med 06/25/19 21:55 Active 4 mg IV Q6H PRN Pantoprazole [ProTONIX IV] Med 06/26/19 09:00 Active 40 mg IV Q12HR Polyethylene Glycol 3350 [MiraLAX] Med 06/25/19 21:55 Active 17 gm PO DAILY PRN Promethazine [Phenergan] 6.25 mg Med 06/25/19 21:55 Active Sodium Chloride 0.9% [Normal Saline] 50 ml IV Q6H Saccharomyces Boulardii [Florastor] Med 06/26/19 09:00 Active 250 mg PO DAILY Sodium Chloride 0.9% [Normal Saline] 1,000 ml Med 06/25/19 22:00 Active IV ASDIRECTED Temazepam [Restoril] Med 06/25/19 21:55 Active 15 mg PO BEDTIME PRN cefTRIAXone [Rocephin] 1 gm Med 06/26/19 09:00 Active Sodium Chloride 0.9% [Normal Saline] 100 ml IV Q24H hydrALAZINE [Apresoline] Med 06/25/19 22:01 Active 20 mg IVPUSH Q4H PRN Blood Culture x2 Reflex Set [OM.PC] Stat Oth 06/25/19 21:55 Ordered Precautions [COMM] Routine Oth 06/25/19 22:00 Ordered Resuscitation Status Routine Resus Stat 06/25/19 21:14 Ordered EKG 12 Lead [EK] Stat Ther 06/25/19 13:53 Ordered Medication Orders Acetaminophen (Tylenol) 650 mg PO Q4H PRN PRN Reason: Pain (Mild 1-3)/fever Last Admin: 06/26/19 05:21 Dose: 650 mg Albuterol/Ipratropium (Duoneb 3.0-0.5 Mg/3 Ml) 3 ml NEB Q4H PRN PRN Reason: Shortness Of Breath/wheezing Bisacodyl (Dulcolax) 5 mg PO DAILY PRN PRN Reason: Constipation Docusate Sodium (Colace) 100 mg PO BID PRN PRN Reason: Constipation Enoxaparin Sodium (Lovenox) 40 mg SUBCUT DAILY [facility] Last Admin: 06/26/19 08:45 Dose: 40 mg Hydralazine HCl (Apresoline) 20 mg IVPUSH Q4H PRN PRN Reason: Hypertension Hydromorphone HCl (Dilaudid) 0.25 mg IVPUSH Q2H PRN PRN Reason: Pain (severe 7-10) Promethazine HCl 6.25 mg/ (Sodium Chloride) 50.25 mls @ 100 mls/hr IV Q6H PRN PRN Reason: Nausea/Vomiting Sodium Chloride (Normal Saline) 1,000 mls @ 50 mls/hr IV ASDIRECTED [facility] Last Admin: 06/25/19 23:56 Dose: 50 mls/hr Ceftriaxone Sodium 1 gm/ (Sodium Chloride) 100 mls @ 200 mls/hr IV Q24H [facility] Last Admin: 06/26/19 08:45 Dose: 200 mls/hr Metoprolol Tartrate (Lopressor) 5 mg IVPUSH Q4H PRN PRN Reason: Tachycardia Ondansetron HCl (Zofran) 4 mg IV Q6H PRN PRN Reason: Nausea/Vomiting Pantoprazole Sodium (Protonix Iv) 40 mg IV Q12HR [facility] Last Admin: 06/26/19 08:45 Dose: 40 mg Polyethylene Glycol (Miralax) 17 gm PO DAILY PRN PRN Reason: Constipation Saccharomyces Boulardii (Florastor) 250 mg PO DAILY [facility] Last Admin: 06/26/19 08:45 Dose: 250 mg Senna/Docusate Sodium (Senna Plus) 1 tab PO BID PRN PRN Reason: Constipation Temazepam (Restoril) 15 mg PO BEDTIME PRN PRN Reason: Sleep Assessment/Plan Comment:: Assessment: Acute: UTI - 2/2 GNR - Continue IV Antibiotic - Awaiting Cx/Sx Status Post Fall - Fell on her way to the bathroom using her walker - She states her walker caught on something which caused her to lose her balance and fell forward Right Noris-Orbital Edema - 2/2 Traumatic Fall - Vision is intact Hypomagnesemia - Mg 1.1 - Continue to Replete and monitor Mid Rhabdomyolysis - CK of 363 - 2/2 recent fall - Monitor Generalized Weakness - 2/2 Metabolic Derangement and Recent Fall - PT/OT eval - Vit D level Morbid Obesity - Dietary consult for weight management Chronic: Impaired Vision, HTN, Asthma, OA/DJD, Stasis Dermatitis, Anxiety, Gait Instability and Morbid Obesity Plan: Admitted to [email or web address] overnight Resume Home Meds Routine AM labs Vit D level AHA diet DVT/GI Prophylaxis Fall Precautions PT/OT to assess and treat SW/CM for d/c planing Code status: full Additional orders as above - Mortality Measure Prognosis:: Good
[2019-06-26] MEDS ORDERED: Pantoprazole 40 MG Vial IV SCH (09:00)
--- NOTE | 2019-06-26 09:39 | CR ---
Left knee: AP, lateral and sunrise patellar views of the left knee were obtained. Comparison: No previous left knee study. Medial joint shows articular sclerosis as well as small degenerative subchondral cysts. No joint space narrowing is seen which is most likely due to lack of weightbearing view. Osteophytes are seen off the medial joint. Additional osteophytes are noted off the patella. Bony structures are osteopenic. No acute fracture or other bony abnormality is appreciated. Impression: 1. Degenerative change and osteopenia. Nothing acute is appreciated on left knee exam. Diagnostic code #2
--- NOTE | 2019-06-26 09:39 | CR ---
Right knee: AP, lateral and sunrise patellar views of the right knee were obtained. Comparison: No prior right knee exam. Fairly severe medial joint space narrowing is noted with articular sclerosis and small subchondral cysts. Medial osteophytes are also noted. Lateral joint space is preserved. Osteophytes are noted off the patella. No joint effusion is seen. Osteopenia is noted. No acute fracture or other abnormality is appreciated. Impression: 1. Degenerative change as noted above. Osteopenia. 2. Nothing acute is appreciated. Diagnostic code #2
[2019-06-26] MEDS ORDERED: Magnesium Sulfate/Water 4 GM in Premix Bag 1 BAG IV ONE (13:31)
[2019-06-26] MEDS ORDERED: Bisacodyl 10 MG Supp RECTAL ONE (17:35)
[2019-06-26] MEDS ORDERED: Furosemide 20 MG Tab PO PRN (18:21)
[2019-06-26] MEDS ORDERED: Albuterol 6.7 GM Inhaler INH PRN (18:21)
[2019-06-26] MEDS: Sodium Chloride 0.9% 1,000 ML IV SCH (18:59)
[2019-06-26] MEDS: Pantoprazole 40 MG Tab.CR PO SCH (21:22)
[2019-06-26] MEDS: Doxepin 10 MG Cap PO SCH (21:23)
[2019-06-26] MEDS: hydrALAZINE 20 MG/ML SDV IVPUSH PRN (21:28)
[2019-06-27] MEDS: Acetaminophen 325 MG Tab PO PRN ×4 (01:25→17:52)
[2019-06-27] MEDS: Famotidine 20 MG Tab PO SCH (05:40)
[2019-06-27] MEDS: Trospium 20 MG Tab PO SCH ×2 (05:40→15:17)
--- NOTE | 2019-06-27 07:11 | PCM.PN ---
- General Info Date of Service: 06/27/19 Admission Dx/Problem (Free Text): Admission Diagnosis/Problem Admission Diagnosis/Problem Urinary tract infection Subjective Update: Follow Up Functional Status: Reports: Pain Controlled, Tolerating Diet, Ambulating, Urinating, New Symptoms (tired and did not sleep well last night) - Review of Systems General: Reports: Weakness, Fatigue. Denies: Fever, Chills HEENT: Reports: No Symptoms Pulmonary: Denies: Shortness of Breath, Cough, Wheezing Cardiovascular: Denies: Chest Pain, Dyspnea on Exertion, Lightheadedness Gastrointestinal: Denies: Abdominal Pain, Nausea, Vomiting Genitourinary: Reports: No Symptoms Musculoskeletal: Reports: No Symptoms Neurological: Reports: Weakness, Gait Disturbance. Denies: Confusion Psychiatric: Denies: Depression, Anxiety, Agitation, Hallucinations Systems Review Comment:: Did not sleep well last not but could not tell me why. She is in no pain but feels tired and weak. - Patient Data Vitals - Most Recent: Last Vital Signs Temp 36.4 C 06/27/19 05:39 Pulse 74 06/27/19 05:39 Resp 18 06/27/19 05:39 BP 148/63 H 06/27/19 05:39 Pulse Ox 96 06/27/19 05:39 Weight - Most Recent: 120.746 kg I&O - Last 24 Hours: Intake & Output 06/26/19 06/27/19 06/27/19 22:59 06:59 14:59 Intake Total 1080 640 Output Total 600 1000 Balance 480 -360 Lab Results Last 24 Hours: Laboratory Results - last 24 hr 06/26/19 06/26/19 06/27/19 Range/Units 06:40 06:40 06:37 WBC 7.24 (3.98-10.04) K/mm3 RBC 3.91 L (3.98-5.22) M/mm3 Hgb 12.2 (11.2-15.7) gm/dl Hct 37.8 (34.1-44.9) % MCV 96.7 H (79.4-94.8) fl MCH 31.2 (25.6-32.2) pg MCHC 32.3 (32.2-35.5) g/dl RDW Std Deviation 48.2 H (36.4-46.3) fL Plt Count 197 (182-369) K/mm3 MPV 10.1 (9.4-12.3) fl Neut % (Auto) 56.0 (34.0-71.1) % Lymph % (Auto) 29.0 (19.3-51.7) % [place] % (Auto) 12.2 (4.7-12.5) % Eos % (Auto) 2.6 (0.7-5.8) Baso % (Auto) 0.1 (0.1-1.2) % Neut # (Auto) 4.05 (1.56-6.13) K/mm3 Lymph # (Auto) 2.10 (1.18-3.74) K/mm3 [place] # (Auto) 0.88 H (0.24-0.36) K/mm3 Eos # (Auto) 0.19 (0.04-0.36) K/mm3 Baso # (Auto) 0.01 (0.01-0.08) K/mm3 Manual Slide Review Not Reportable Sodium 141 (136-145) mEq/L Potassium 3.5 (3.5-5.1) mEq/L Chloride 108 H (98-107) mEq/L Carbon Dioxide 28 (21-32) mEq/L Anion Gap 8.5 (5-15) BUN 20 H (7-18) mg/dL Creatinine 0.9 (0.55-1.02) mg/dL Est Cr Clr Drug Dosing TNP Estimated GFR (MDRD) > 60 (>60) mL/min BUN/Creatinine Ratio 22.2 H (14-18) Glucose 102 (83-115) mg/dL Calcium 8.9 (8.5-10.1) mg/dL Magnesium 1.3 L (1.8-2.4) mg/dl C-Reactive Protein 2.4 H* (<1.0) mg/dL [place] Results Last 24 Hours: Microbiology 06/25/19 22:42 Aerobic Blood Culture - Preliminary Blood - Venous - Lab Draw NO GROWTH AFTER 1 DAY Anaerobic Blood Culture - Preliminary NO GROWTH AFTER 1 DAY 06/25/19 22:26 Aerobic Blood Culture - Preliminary Blood - Venous NO GROWTH AFTER 1 DAY Anaerobic Blood Culture - Preliminary NO GROWTH AFTER 1 DAY 06/25/19 20:11 Urine Culture - Preliminary Urine, Clean Catch Gram Negative Rods Med Orders - Current: Current Medications Acetaminophen (Tylenol) 650 mg PO Q4H PRN PRN Reason: Pain (Mild 1-3)/fever Last Admin: 06/27/19 05:41 Dose: 650 mg Albuterol (Proventil Hfa) 0 gm INH Q6H PRN PRN Reason: Shortness of Breath Albuterol/Ipratropium (Duoneb 3.0-0.5 Mg/3 Ml) 3 ml NEB Q4H PRN PRN Reason: Shortness Of Breath/wheezing Bisacodyl (Dulcolax) 5 mg PO DAILY PRN PRN Reason: Constipation Cyanocobalamin (Vitamin B12) 500 mcg PO DAILY [facility] Docusate Sodium (Colace) 100 mg PO BID PRN PRN Reason: Constipation Doxepin HCl (Sinequan) 10 mg PO BEDTIME [facility] Last Admin: 06/26/19 21:23 Dose: Not Given Enoxaparin Sodium (Lovenox) 40 mg SUBCUT DAILY [facility] Last Admin: 06/26/19 08:45 Dose: 40 mg Famotidine (Pepcid) 10 mg PO ACBREAKFAST [facility] Last Admin: 06/27/19 05:40 Dose: 10 mg Fluticasone Propionate (Flonase) 0 gm NASBOTH DAILY [facility] Furosemide (Lasix) 20 mg PO DAILY PRN PRN Reason: EDEMA Hydralazine HCl (Apresoline) 20 mg IVPUSH Q4H PRN PRN Reason: Hypertension Last Admin: 06/26/19 21:28 Dose: 20 mg Hydromorphone HCl (Dilaudid) 0.25 mg IVPUSH Q2H PRN PRN Reason: Pain (severe 7-10) Promethazine HCl 6.25 mg/ (Sodium Chloride) 50.25 mls @ 100 mls/hr IV Q6H PRN PRN Reason: Nausea/Vomiting Sodium Chloride (Normal Saline) 1,000 mls @ 50 mls/hr IV ASDIRECTED [facility] Last Admin: 06/26/19 18:59 Dose: 50 mls/hr Ceftriaxone Sodium 1 gm/ (Sodium Chloride) 100 mls @ 200 mls/hr IV Q24H [facility] Last Admin: 06/26/19 08:45 Dose: 200 mls/hr Metoprolol Succinate (Toprol Xl) 50 mg PO DAILY [facility] Metoprolol Tartrate (Lopressor) 5 mg IVPUSH Q4H PRN PRN Reason: Tachycardia Ondansetron HCl (Zofran) 4 mg IV Q6H PRN PRN Reason: Nausea/Vomiting Pantoprazole Sodium (Protonix) 40 mg PO Q12HR [facility] Last Admin: 06/26/19 21:22 Dose: 40 mg Polyethylene Glycol (Miralax) 17 gm PO DAILY PRN PRN Reason: Constipation Saccharomyces Boulardii (Florastor) 250 mg PO DAILY [facility] Last Admin: 06/26/19 08:45 Dose: 250 mg Senna/Docusate Sodium (Senna Plus) 1 tab PO BID PRN PRN Reason: Constipation Temazepam (Restoril) 15 mg PO BEDTIME PRN PRN Reason: Sleep Trospium (Sanctura) 20 mg PO BIDAC [facility] Last Admin: 06/27/19 05:40 Dose: 20 mg Venlafaxine HCl (Effexor Xr) 150 mg PO DAILY [facility] Discontinued Medications Hydrocodone Bitart/Acetaminophen ([place] 325-5 Mg) 1 tab PO ONETIME ONE Stop: 06/25/19 18:32 Last Admin: 06/25/19 18:45 Dose: 1 tab Bisacodyl (Dulcolax) 10 mg RECTAL ONETIME ONE Stop: 06/26/19 17:36 Last Admin: 06/26/19 19:44 Dose: Not Given Magnesium Sulfate 2 gm/ Premix 50 mls @ 25 mls/hr IV ONETIME ONE Stop: 06/25/19 19:11 Last Admin: 06/25/19 17:41 Dose: 25 mls/hr Ceftriaxone Sodium 2 gm/ (Sodium Chloride) 100 mls @ 200 mls/hr IV ONETIME ONE Stop: 06/25/19 20:40 Last Admin: 06/26/19 00:52 Dose: Not Given Ceftriaxone Sodium 2 gm/ (Sodium Chloride) 100 mls @ 200 mls/hr IV NOW ONE Stop: 06/25/19 20:51 Last Admin: 06/25/19 20:27 Dose: 200 mls/hr Magnesium Sulfate 4 gm/ Premix 50 mls @ 12.5 mls/hr IV ONETIME ONE Stop: 06/26/19 17:30 Last Admin: 06/26/19 14:20 Dose: 12.5 mls/hr Pantoprazole Sodium (Protonix Iv) 40 mg IV Q12HR [facility] Last Admin: 06/26/19 08:45 Dose: 40 mg - Exam General: Alert, Oriented, Cooperative, No Acute Distress HEENT: Pupils Equal, Pupils Reactive, EOMI, Mucous Membr. Moist/[place]: Supple Lungs: Clear to Auscultation, Normal Respiratory Effort Cardiovascular: Regular Rate, Regular Rhythm, Murmurs GI/Abdominal Exam: Normal Bowel Sounds, Soft, Non-Tender, No Organomegaly, No Distention, No Abnormal Bruit (Female) Exam: Deferred Back Exam: Normal Inspection, Decreased Range of Motion Extremities: Normal Range of Motion, Non-Tender, Normal Capillary Refill, Pedal Edema, Other (peripheral [place]ba,a on b/l lower extremity) Peripheral Pulses: 1+: Dorsalis Pedis (L), Dorsalis Pedis (R) Skin: Warm, Dry, Intact Neurological: No New Focal Deficit. No: Normal Gait Psy/Mental Status: Alert, Normal Affect, Normal Mood - Problem List Review Problem List Initiated/Reviewed/Updated: Yes - My Orders Last 24 Hours: My Active Orders 06/26/19 09:00 Enoxaparin [Lovenox] 40 mg SUBCUT DAILY Saccharomyces Boulardii [Florastor] 250 mg PO DAILY cefTRIAXone [Rocephin] 1 gm Sodium Chloride 0.9% [Normal Saline] 100 ml IV Q24H 06/26/19 18:21 Albuterol [Proventil HFA] 0 gm INH Q6H PRN Furosemide [Lasix] 20 mg PO DAILY PRN 06/26/19 21:00 Doxepin [SINEquan] 10 mg PO BEDTIME Pantoprazole [ProTONIX] 40 mg PO Q12HR 06/26/19 Breakfast Heart Healthy Diet [DIET] 06/27/19 06:00 Famotidine [Pepcid] 10 mg PO ACBREAKFAST Trospium [Sanctura] 20 mg PO BIDAC 06/27/19 06:37 BASIC METABOLIC PANEL,BMP [CHEM] AM C-REACTIVE PROTEIN [CHEM] AM MAGNESIUM [CHEM] AM VITAMIN D,25-HYDROXY [CHEM] AM 06/27/19 09:00 Cyanocobalamin (Vitamin B12) [Vitamin B12] 500 mcg PO DAILY Fluticasone Propionate [Flonase] 0 gm NASBOTH DAILY Metoprolol Succinate [Toprol XL] 50 mg PO DAILY Venlafaxine [Effexor XR] 150 mg PO DAILY 06/28/19 05:11 BASIC METABOLIC PANEL,BMP [CHEM] AM C-REACTIVE PROTEIN [CHEM] AM CBC WITH AUTO DIFF [HEME] AM MAGNESIUM [CHEM] AM 06/29/19 05:11 BASIC METABOLIC PANEL,BMP [CHEM] AM C-REACTIVE PROTEIN [CHEM] AM CBC WITH AUTO DIFF [HEME] AM MAGNESIUM [CHEM] AM 06/30/19 05:11 BASIC METABOLIC PANEL,BMP [CHEM] AM C-REACTIVE PROTEIN [CHEM] AM CBC WITH AUTO DIFF [HEME] AM MAGNESIUM [CHEM] AM - Plan Plan:: Assessment: Acute: UTI - 2/2 E. coli - Sensitive to Rocephin; continue treatment - Would likely need 3 days of treatment Status Post Fall - Fell on her way to the bathroom using her walker - She states her walker caught on something which caused her to lose her balance and fell forward Right [place]-Orbital Edema, Improved - 2/2 Traumatic Fall - Vision is intact Hypomagnesemia - Mg 1.1--> 1.7 - Continue Replete and monitor Mid Rhabdomyolysis - CK of 363; repeat level in AM - 2/2 recent fall - Monitor Generalized Weakness, Improved - 2/2 Metabolic Derangement and Recent Fall - PT/OT evaluation - Vit D level-wnl Morbid Obesity - Dietary consult for weight management Chronic: Impaired Vision, HTN, Asthma, OA/DJD, Stasis Dermatitis, Anxiety, Gait Instability and Morbid Obesity Plan: She is clinically better Routine AM labs AHA diet DVT/GI Prophylaxis Fall Precautions PT/OT to assess and treat SW/CM for d/c planing Code status: full Additional orders as above Possible discharge in 1-2 days
[2019-06-27 07:34] LABS: VITAMIN D,25-HYDROXY 62.5 ng/ml (30.0-100.0)
[2019-06-27] MEDS ORDERED: Magnesium Sulfate/Water 4 GM in Premix Bag 1 BAG IV ONE (08:20)
[2019-06-27] MEDS: cefTRIAXone 1 GM in Sodium Chloride 0.9% 100 ML IV SCH (09:11)
[2019-06-27] MEDS: Saccharomyces Boulardii (Probiotic) 250 MG Cap PO SCH (10:46)
[2019-06-27] MEDS: Metoprolol Succinate 50 MG Tab.ER PO SCH (10:47)
[2019-06-27] MEDS: Furosemide 40 MG Tab PO SCH (10:47)
[2019-06-27] MEDS: Enoxaparin 40 MG/0.4 ML Syringe SUBCUT SCH (10:48)
[2019-06-27] MEDS: Pantoprazole 40 MG Tab.CR PO SCH (10:48)
[2019-06-27] MEDS: Potassium Chloride 20 MEQ Tab.ER PO ONE ×2 (10:48→10:59)
[2019-06-27] MEDS: Venlafaxine 75 MG Cap.ER PO SCH (10:48)
[2019-06-27] MEDS: Cyanocobalamin (Vitamin B12) 1,000 MCG Tab PO SCH (10:49)
[2019-06-27] MEDS: Fluticasone Propionate Nasal Spray 16 GM Bottle NASBOTH SCH (10:55)
[2019-06-27] MEDS ORDERED: Sodium Chloride 0.9% 1,000 ML IV SCH (12:45)
[2019-06-27] MEDS: Potassium Chloride 10 MEQ in Premix Bag 1 BAG IV SCH ×6 (12:57→18:55)
[2019-06-27] MEDS: hydrALAZINE 20 MG/ML SDV IVPUSH PRN (15:24)
[2019-06-27] MEDS: Doxepin 10 MG Cap PO SCH (23:12)
[2019-06-28] MEDS: Trospium 20 MG Tab PO SCH (05:54)
[2019-06-28] MEDS: Famotidine 20 MG Tab PO SCH (05:54)
[2019-06-28] MEDS: Furosemide 40 MG Tab PO SCH (08:12)
[2019-06-28] MEDS: Fluticasone Propionate Nasal Spray 16 GM Bottle NASBOTH SCH (08:12)
[2019-06-28] MEDS: Enoxaparin 40 MG/0.4 ML Syringe SUBCUT SCH (08:12)
[2019-06-28] MEDS: cefTRIAXone 1 GM in Sodium Chloride 0.9% 100 ML IV SCH (08:12)
[2019-06-28] MEDS: Cyanocobalamin (Vitamin B12) 1,000 MCG Tab PO SCH (08:13)
[2019-06-28] MEDS: Venlafaxine 75 MG Cap.ER PO SCH (08:13)
[2019-06-28] MEDS: Saccharomyces Boulardii (Probiotic) 250 MG Cap PO SCH (08:13)
[2019-06-28] MEDS: Metoprolol Succinate 50 MG Tab.ER PO SCH (08:13)
[2019-06-28] MEDS ORDERED: Magnesium Sulfate/Water 2 GM in Premix Bag 1 BAG IV ONE (10:29)
--- NOTE | 2019-06-28 12:57 | PCM.DCSUM1 ---
Discharge Summary - Hospital Course Free Text/Narrative:: This is a 73 yo elderly white female with past medical hx/o Impaired Vision, HTN , Asthma, OA/DJD, Stasis Dermatitis, Anxiety, Gait Instability and Morbid Obesity who presented to ED last night with complaints of left eye edema associated with ecchymosis after sustaining a mild traumatic fall. The incident was unwitnessed and unknown. However she states she was on her way to the bathroom using her walker and when something caught on to it. As a result, she lost her balance and fell forward. She denies any prodromal symptoms. She hit her head on her way down to the floor. She denies any loss of bladder or bowel control. No report of neurological complaints. Her initial work up in ED showed an unremarkable CBC. Her Chemistry was significant for BUN of 23, Mg of 1.1, Total Bilirubin of 1.5, ALT of 12, CPK of 363, CRP of 1.7, Total Protein of 6.1 and Albumin of 3.3. Her UA showed UTI. Her Head CT scan report read as nothing acute is appreciated. Her Duplex U/S report read as no evidence of DVT but left popliteal cyst. Her B/l Knee x-rays report read as osteopenia with nothing acute appreciated. Patient was admitted overnight for treatment of UTI and evaluation of recent fall. Diagnosis: Stroke: No - Discharge Data Discharge Date: 06/28/19 Discharge Disposition: Home, Self-Care 01 Condition: Good - Referral to Home Health Primary Care Physician: Marilyn Bai NP - Discharge Diagnosis/Problem(s) (1) UTI (urinary tract infection) SNOMED Code(s): 78470913 ICD Code: N39.0 - URINARY TRACT INFECTION, SITE NOT SPECIFIED Status: Acute Qualifiers: Urinary tract infection type: site unspecified Hematuria presence: with hematuria Qualified Code(s): N39.0 - Urinary tract infection, site not specified; R31.9 - Hematuria, unspecified (2) Contusion of unspecified part of head, initial encounter SNOMED Code(s): 134522934 ICD Code: S00.93XA - CONTUSION OF UNSPECIFIED PART OF HEAD, INITIAL ENCOUNTER Status: Acute (3) Muscle soreness SNOMED Code(s): 623210114, 828739147 ICD Code: M79.10 - MYALGIA, UNSPECIFIED SITE Status: Resolved (4) Traumatic rhabdomyolysis SNOMED Code(s): 546240852 ICD Code: T79.6XXA - TRAUMATIC ISCHEMIA OF MUSCLE, INITIAL ENCOUNTER Status : Resolved Qualifiers: Encounter type: initial encounter Qualified Code(s): T79.6XXA - Traumatic ischemia of muscle, initial encounter (5) Hypomagnesemia SNOMED Code(s): 191663269 ICD Code: E83.42 - HYPOMAGNESEMIA Status: Acute (6) Status post fall SNOMED Code(s): 872244378 ICD Code: Z91.81 - HISTORY OF FALLING Status: Inactive (7) Edema of left orbit SNOMED Code(s): 996213173 ICD Code: H05.222 - EDEMA OF LEFT ORBIT Status: Resolved - Patient Summary/Data Operative Procedure(s) Performed: None Complications: None Consults: Consultations 06/25/19 21:55 Consult to Case Management/Reinforcing Metal Worker [CONS] Routine Consult to School Psychologist [CONS] Routine Consult to Spiritual Care [CONS] Routine OT Evaluation and Treatment [CONS] Routine PT Evaluation and Treatment [CONS] Routine Labs Pending at D/C: None Recommended Follow-up Testing/Procedures: None Planned Operative Procedure(s) after DC: None Hospital Course: Patient was primarily admitted for evaluation of a recent traumatic fall wherein she suffered a facial contusion with right noris-orbital edema/ ecchymosis and mild rhabdomyolysis. All her skeletal imaging studies revealed no acute fracture or bone dislocations. She received mainly supportive care along with PT/OT treatment. However during this hospitalization, she was found to have a simple UTI for which she was treated appropriately with intravenous antibiotic. Her hospital course was fairly uncomplicated and the rest of her chronic medical illness remained stable during this admission. Once stable for discharge, she was sent back home to resume HHS as well continue additional course of oral Macrobid to complete her antibiotic treatment. She was advised to follow up with her PCP 1 week after discharge. - Patient Instructions Diet: Usual Diet as Tolerated, Weight Loss Diet Activity: As Tolerated Driving: Do Not Drive Showering/Bathing: May Shower Wound/Incision Care: Keep Operative Site/Wound Site Clean and Dry Notify Provider of: Fever, Increased Pain, Swelling and Redness, Drainage, Nausea and/or Vomiting Other/Special Instructions: - Please take all new medications as directed. - Resume routine home medications and activities as tolerated. - Call or follow up with your doctor for any concerns or issues after discharge. - Follow up with your doctor in 1 week. - Come back or seek immediate care should your symptoms persist or get worse - Discharge Plan *PRESCRIPTION DRUG MONITORING PROGRAM REVIEWED*: Not Applicable *COPY OF PRESCRIPTION DRUG MONITORING REPORT IN PATIENT KENROY: Not Applicable Prescriptions/Med Rec: Magnesium Oxide 400 mg PO BID #10 tablet Nitrofurantoin Monohyd/M-Cryst [Macrobid 100 mg Capsule] 100 mg PO BID #8 capsule Saccharomyces Boulardii [Florastor] 250 mg PO DAILY #8 capsule Home Medications: Home Meds Doxepin [SINEquan] 10 mg PO BEDTIME 12/07/17 [History] Fesoterodine Fumarate [Toviaz] 8 mg PO DAILY 12/07/17 [History] Furosemide [Lasix] 20 mg PO DAILY 12/07/17 [History] Levalbuterol Tartrate [Xopenex HFA] 2 puff INH Q6H PRN 12/07/17 [History] Metoprolol Succinate [Toprol XL 100mg] 50 mg PO DAILY 12/07/17 [History] Venlafaxine HCl [Venlafaxine ER] 150 mg PO DAILY 12/07/17 [History] Fluticasone Propionate [Flonase] 1 spray NASBOTH DAILY 12/19/17 [History] Cyanocobalamin (Vitamin B-12) [Vitamin B-12] 500 mcg PO DAILY 06/26/19 [History] Famotidine [Pepcid AC] 10 mg PO ACBREAKFAST 06/26/19 [History] Magnesium Oxide 400 mg PO BID #10 tablet 06/28/19 [Rx] Nitrofurantoin Monohyd/M-Cryst [Macrobid 100 mg Capsule] 100 mg PO BID #8 capsule 06/28/19 [Rx] Saccharomyces Boulardii [Florastor] 250 mg PO DAILY #8 capsule 06/28/19 [Rx] Oxygen Therapy Mode: Room Air Patient Handouts: Hypomagnesemia, Muscle Pain, Adult, Understanding Your Risk for Falls, Facial or Scalp Contusion, [id number], Urinary Tract Infection, Adult, [id number] Referrals: Marilyn Bai NP [Primary Care Provider] - 07/13/19 10:00 am (Cancelling your 07/31 appointment) - Discharge Summary/Plan Comment DC Time >30 min.: No Discharge Summary/Plan Comment: Discharge to Home - General Info Date of Service: 06/28/19 Admission Dx/Problem (Free Text: Admission Diagnosis/Problem Admission Diagnosis/Problem Urinary tract infection Subjective Update: Follow Up Functional Status: Reports: Pain Controlled, Tolerating Diet, Ambulating, Urinating. Denies: New Symptoms - Review of Systems General: Denies: Fever, Weakness, Fatigue, Malaise, Chills HEENT: Reports: No Symptoms Pulmonary: Denies: Shortness of Breath Cardiovascular: Denies: Chest Pain, Dyspnea on Exertion, Orthopnea, Lightheadedness Gastrointestinal: Denies: Abdominal Pain, Nausea, Vomiting Genitourinary: Reports: No Symptoms Musculoskeletal: Reports: No Symptoms Skin: Denies: Cyanosis, Pallor, Diaphoresis, Other Neurological: Denies: Confusion, Difficulty Walking, Weakness, Gait Disturbance Psychiatric: Denies: Confusion, Depression, Mood Lability, Anxiety, Agitation, Hallucinations, Suicidal Ideation, Homicidal Ideation - Patient Data Vitals - Most Recent: Last Vital Signs Temp 36.5 C 06/28/19 05:53 Pulse 70 06/28/19 08:13 Resp 18 06/28/19 05:53 BP 103/78 06/28/19 08:13 Pulse Ox 93 L 06/28/19 05:53 Weight - Most Recent: 115.485 kg I&O - Last 24 hours: Intake & Output 06/27/19 06/28/19 06/28/19 22:59 06:59 14:59 Intake Total 750 600 Output Total 2750 Balance 750 -2150 Lab Results - Last 24 hrs: Laboratory Results - last 24 hr 06/28/19 06/28/19 Range/Units 05:03 05:03 WBC 5.89 (3.98-10.04) K/mm3 RBC 3.77 L (3.98-5.22) M/mm3 Hgb 11.7 (11.2-15.7) gm/dl Hct 36.6 (34.1-44.9) % MCV 97.1 H (79.4-94.8) fl MCH 31.0 (25.6-32.2) pg MCHC 32.0 L (32.2-35.5) g/dl RDW Std Deviation 48.8 H (36.4-46.3) fL Plt Count 193 (182-369) K/mm3 MPV 10.3 (9.4-12.3) fl Neut % (Auto) 39.7 (34.0-71.1) % Lymph % (Auto) 41.4 (19.3-51.7) % [place] % (Auto) 14.9 H (4.7-12.5) % Eos % (Auto) 3.7 (0.7-5.8) Baso % (Auto) 0.3 (0.1-1.2) % Neut # (Auto) 2.33 (1.56-6.13) K/mm3 Lymph # (Auto) 2.44 (1.18-3.74) K/mm3 [place] # (Auto) 0.88 H (0.24-0.36) K/mm3 Eos # (Auto) 0.22 (0.04-0.36) K/mm3 Baso # (Auto) 0.02 (0.01-0.08) K/mm3 Sodium 140 (136-145) mEq/L Potassium 3.8 (3.5-5.1) mEq/L Chloride 104 (98-107) mEq/L Carbon Dioxide 28 (21-32) mEq/L Anion Gap 11.8 (5-15) BUN 14 (7-18) mg/dL Creatinine 0.9 (0.55-1.02) mg/dL Est Cr Clr Drug Dosing 38.79 mL/min Estimated GFR (MDRD) > 60 (>60) mL/min BUN/Creatinine Ratio 15.6 (14-18) Glucose 102 (83-115) mg/dL Calcium 9.1 (8.5-10.1) mg/dL Magnesium 1.7 L (1.8-2.4) mg/dl Creatine Kinase 122 (26-192) U/L C-Reactive Protein 1.4 H* (<1.0) mg/dL [facility] Results - Last 24 hrs: Microbiology 06/25/19 22:42 Aerobic Blood Culture - Preliminary Blood - Venous - Lab Draw NO GROWTH AFTER 2 DAYS Anaerobic Blood Culture - Preliminary NO GROWTH AFTER 2 DAYS 06/25/19 22:26 Aerobic Blood Culture - Preliminary Blood - Venous NO GROWTH AFTER 2 DAYS Anaerobic Blood Culture - Preliminary NO GROWTH AFTER 2 DAYS 06/25/19 20:11 Urine Culture - Final Urine, Clean Catch Escherichia Coli Med Orders - Current: Current Medications Acetaminophen (Tylenol) 650 mg PO Q4H PRN PRN Reason: Pain (Mild 1-3)/fever Last Admin: 06/27/19 17:52 Dose: 650 mg Albuterol (Proventil Hfa) 0 gm INH Q6H PRN PRN Reason: Shortness of Breath Albuterol/Ipratropium (Duoneb 3.0-0.5 Mg/3 Ml) 3 ml NEB Q4H PRN PRN Reason: Shortness Of Breath/wheezing Bisacodyl (Dulcolax) 5 mg PO DAILY PRN PRN Reason: Constipation Cyanocobalamin (Vitamin B12) 500 mcg PO DAILY [facility] Last Admin: 06/28/19 08:13 Dose: 500 mcg Docusate Sodium (Colace) 100 mg PO BID PRN PRN Reason: Constipation Doxepin HCl (Sinequan) 10 mg PO BEDTIME [facility] Last Admin: 06/27/19 23:12 Dose: 10 mg Enoxaparin Sodium (Lovenox) 40 mg SUBCUT DAILY [facility] Last Admin: 06/28/19 08:12 Dose: 40 mg Famotidine (Pepcid) 10 mg PO ACBREAKFAST [facility] Last Admin: 06/28/19 05:54 Dose: 10 mg Fluticasone Propionate (Flonase) 0 gm NASBOTH DAILY [facility] Last Admin: 06/28/19 08:12 Dose: 1 spray Furosemide (Lasix) 20 mg PO DAILY PRN PRN Reason: EDEMA Furosemide (Lasix) 40 mg PO DAILY [facility] Last Admin: 06/28/19 08:12 Dose: 40 mg Hydralazine HCl (Apresoline) 20 mg IVPUSH Q4H PRN PRN Reason: Hypertension Last Admin: 06/27/19 15:24 Dose: 20 mg Hydromorphone HCl (Dilaudid) 0.25 mg IVPUSH Q2H PRN PRN Reason: Pain (severe 7-10) Promethazine HCl 6.25 mg/ (Sodium Chloride) 50.25 mls @ 100 mls/hr IV Q6H PRN PRN Reason: Nausea/Vomiting Ceftriaxone Sodium 1 gm/ (Sodium Chloride) 100 mls @ 200 mls/hr IV Q24H [facility] Last Admin: 06/28/19 08:12 Dose: 200 mls/hr Metoprolol Succinate (Toprol Xl) 50 mg PO DAILY [facility] Last Admin: 06/28/19 08:13 Dose: 50 mg Metoprolol Tartrate (Lopressor) 5 mg IVPUSH Q4H PRN PRN Reason: Tachycardia Ondansetron HCl (Zofran) 4 mg IV Q6H PRN PRN Reason: Nausea/Vomiting Polyethylene Glycol (Miralax) 17 gm PO DAILY PRN PRN Reason: Constipation Saccharomyces Boulardii (Florastor) 250 mg PO DAILY [facility] Last Admin: 06/28/19 08:13 Dose: 250 mg Senna/Docusate Sodium (Senna Plus) 1 tab PO BID PRN PRN Reason: Constipation Temazepam (Restoril) 15 mg PO BEDTIME PRN PRN Reason: Sleep Trospium (Sanctura) 20 mg PO BIDAC [facility] Last Admin: 06/28/19 05:54 Dose: 20 mg Venlafaxine HCl (Effexor Xr) 150 mg PO DAILY [facility] Last Admin: 06/28/19 08:13 Dose: 150 mg Discontinued Medications Hydrocodone Bitart/Acetaminophen ([place] 325-5 Mg) 1 tab PO ONETIME ONE Stop: 06/25/19 18:32 Last Admin: 06/25/19 18:45 Dose: 1 tab Bisacodyl (Dulcolax) 10 mg RECTAL ONETIME ONE Stop: 06/26/19 17:36 Last Admin: 06/26/19 19:44 Dose: Not Given Magnesium Sulfate 2 gm/ Premix 50 mls @ 25 mls/hr IV ONETIME ONE Stop: 06/25/19 19:11 Last Admin: 06/25/19 17:41 Dose: 25 mls/hr Ceftriaxone Sodium 2 gm/ (Sodium Chloride) 100 mls @ 200 mls/hr IV ONETIME ONE Stop: 06/25/19 20:40 Last Admin: 06/26/19 00:52 Dose: Not Given Ceftriaxone Sodium 2 gm/ (Sodium Chloride) 100 mls @ 200 mls/hr IV NOW ONE Stop: 06/25/19 20:51 Last Admin: 06/25/19 20:27 Dose: 200 mls/hr Sodium Chloride (Normal Saline) 1,000 mls @ 50 mls/hr IV ASDIRECTED [facility] Last Admin: 06/26/19 18:59 Dose: 50 mls/hr Magnesium Sulfate 4 gm/ Premix 50 mls @ 12.5 mls/hr IV ONETIME ONE Stop: 06/26/19 17:30 Last Admin: 06/26/19 14:20 Dose: 12.5 mls/hr Magnesium Sulfate 4 gm/ Premix 50 mls @ 12.5 mls/hr IV ONETIME ONE Stop: 06/27/19 12:19 Last Admin: 06/27/19 10:49 Dose: 12.5 mls/hr Potassium Chloride 10 meq/ (Premix) 100 mls @ 100 mls/hr IV Q1H [facility] Stop: 06/27/19 17:59 Last Admin: 06/27/19 18:55 Dose: 100 mls/hr Sodium Chloride (Normal Saline) 1,000 mls @ 50 mls/hr IV ASDIRECTED [facility] Last Admin: 06/27/19 13:07 Dose: 50 mls/hr Magnesium Sulfate 2 gm/ Premix 50 mls @ 25 mls/hr IV ONETIME ONE Stop: 06/28/19 12:28 Last Admin: 06/28/19 10:46 Dose: 25 mls/hr Pantoprazole Sodium (Protonix Iv) 40 mg IV Q12HR [facility] Last Admin: 06/26/19 08:45 Dose: 40 mg Pantoprazole Sodium (Protonix) 40 mg PO Q12HR [facility] Last Admin: 06/27/19 10:48 Dose: 40 mg Potassium Chloride (Klor-Con M20) 60 meq PO ONETIME ONE Stop: 06/27/19 08:22 Last Admin: 06/27/19 10:59 Dose: Not Given - Exam General: Reports: Alert, Oriented, Cooperative HEENT: Reports: Pupils Equal, Pupils Reactive, EOMI, Mucous Membr. Moist/Orrum Neck: Reports: Supple Lungs: Reports: Clear to Auscultation, Normal Respiratory Effort Cardiovascular: Reports: Regular Rate, Regular Rhythm GI/Abdominal Exam: Normal Bowel Sounds, Soft, Non-Tender, No Organomegaly, No Distention, No Abnormal Bruit, No Mass, Pelvis Stable (Female) Exam: Deferred Rectal (Female) Exam: Deferred Back Exam: Reports: Normal Inspection, Decreased Range of Motion Extremities: Normal Inspection, Normal Range of Motion, Non-Tender, Pedal Edema , Slow Capillary Refill, Increased Warmth, Redness Skin: Reports: Warm, Dry, Intact Neurological: Reports: No New Focal Deficit. Denies: Normal Gait Psy/Mental Status: Reports: Alert, Normal Affect, Normal Mood
== END 2019-06-28 15:15 | disposition home or self-care (01) | DRG 565 ==
LOC: JD.ED 13:32 → JD.MS 20:32
PROVIDERS: ADMIT Internal Medicine; ATTEND Internal Medicine
DX: T79.6XXA Traumatic ischemia of muscle, initial encounter (principal); N39.0 Urinary tract infection, site not specified; R31.9 Hematuria, unspecified; R74.8 Abnormal levels of other serum enzymes; S05.12XA Contusion of eyeball and orbital tissues, left eye, initial encounter; M79.662 Pain in left lower leg; M79.661 Pain in right lower leg; Z68.42 Body mass index [BMI] 45.0-49.9, adult; S00.83XA Contusion of other part of head, initial encounter; M25.562 Pain in left knee; M25.561 Pain in right knee; J45.909 Unspecified asthma, uncomplicated; I10 Essential (primary) hypertension; E66.01 Morbid (severe) obesity due to excess calories; I87.2 Venous insufficiency (chronic) (peripheral); M71.22 Synovial cyst of popliteal space [Baker], left knee; M85.862 Other specified disorders of bone density and structure, left lower leg; B96.20 Unspecified Escherichia coli [E. coli] as the cause of diseases classified elsewhere; M85.861 Other specified disorders of bone density and structure, right lower leg; W19.XXXA Unspecified fall, initial encounter; Y99.8 Other external cause status; F41.9 Anxiety disorder, unspecified; E83.42 Hypomagnesemia; H05.222 Edema of left orbit; R26.9 Unspecified abnormalities of gait and mobility; K59.09 Other constipation; Z90.89 Acquired absence of other organs; Z90.710 Acquired absence of both cervix and uterus; Z87.891 Personal history of nicotine dependence; Z79.899 Other long term (current) drug therapy; W01.0XXA Fall on same level from slipping, tripping and stumbling without subsequent striking against object, initial encounter
CPT/HCPCS: 36415; 70450; 73562 ×2; 80053; 81001; 82550; 83735; 84484; 85025; 86140; 87086; 87088; 87186; 93005; 93970; 96365; 96366; 96367; 99285; A9270; J0696; J3475; J7030; 80048; 82306; 87040; 94761; 97110-GP; 97116-GP; 97162-GP; 97166-GO; 97530-GO; 97535-GO; C9113; J0360; J1650; J3480; J7040

== ENCOUNTER 2019-06-30 17:17 | Inpatient (IN) | payer MEDICARE, MEDICAID ==
--- NOTE | 2019-06-30 19:18 | EDM.PDOC ---
ED HPI GENERAL MEDICAL PROBLEM - General Chief Complaint: Neurological Problem Stated Complaint: [facility] Time Seen by Provider: 06/30/19 18:50 Source of Information: Reports: Patient, Old Records (ED visit 06/25/2019), RN Notes Reviewed History Limitations: Reports: No Limitations - History of Present Illness INITIAL COMMENTS - FREE TEXT/NARRATIVE: According to the triage nurse's note and the patient herself, the patient was found on her bedroom floor by a neighbor who came to check on her. The patient does not recall falling, but has a history of frequent falls. She states that she uses a walker when she ambulates. Here in the ED, the patient does not appear to be in any acute distress. There are no obvious physical injuries. She seems somewhat confused/forgetful. She smells strongly of urine. She complains of generalized body aches, and had reported a headache earlier, although she now tells me that the headache has resolved. Medical records indicate that the patient was admitted to this hospital on 2016 through 06/26/2019 after falling and striking her head. A CT scan of her head was negative, but she was found to have an UTI. She was treated with Macrobid. The urine culture subsequently grew out Escherichia coli, multiply susceptible, except to trimethoprim/sulfamethoxazole. The patient's PCP is Marilyn Bai NP. Anterior Headache Pain Score (Numeric/FACES): 10 - Related Data Allergies Allergy/AdvReac Type Severity Reaction Status Date / Time No Known Allergies Allergy Verified 06/30/19 17:38 Home Meds: Home Meds Doxepin [SINEquan] 10 mg PO BEDTIME 12/07/17 [History] Furosemide [Lasix] 20 mg PO DAILY 12/07/17 [History] Levalbuterol Tartrate [Xopenex HFA] 2 puff INH Q6H PRN 12/07/17 [History] Metoprolol Succinate [Toprol XL 100mg] 50 mg PO DAILY 12/07/17 [History] Venlafaxine HCl [Venlafaxine ER] 150 mg PO DAILY 12/07/17 [History] Cyanocobalamin (Vitamin B-12) [Vitamin B-12] 500 mcg PO DAILY 06/26/19 [History] Famotidine [Pepcid AC] 10 mg PO ACBREAKFAST 06/26/19 [History] Magnesium Oxide 400 mg PO BID #10 tablet 06/28/19 [Rx] Nitrofurantoin Monohyd/M-Cryst [Macrobid 100 mg Capsule] 100 mg PO BID #8 capsule 06/28/19 [Rx] Saccharomyces Boulardii [Florastor] 250 mg PO DAILY #8 capsule 06/28/19 [Rx] Cholecalciferol (Vitamin D3) [Vitamin D3] 2,000 unit PO DAILY 06/30/19 [History] Past Medical History HEENT History: Reports: Impaired Vision Other HEENT History: Wears glasses Cardiovascular History: Reports: Hypertension Respiratory History: Reports: Asthma Genitourinary History: Reports: Urinary Incontinence 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: Endometriosis Musculoskeletal History: Reports: Osteoarthritis Neurological History: Reports: Other (See Below) (Gait instability) Psychiatric History: Reports: Anxiety Endocrine/Metabolic History: Reports: Obesity/BMI 30+ Dermatologic History: Reports: Other (See Below) (Basis dermatitis bilateral lower extremity) - Past Surgical History HEENT Surgical History: Reports: Tonsillectomy GI Surgical History: Reports: Colonoscopy, EGD Female Surgical History: Reports: Hysterectomy (complete) Social & Family History - Family History Family Medical History: Noncontributory - Tobacco Use Smoking Status *Q: Former Smoker Month/Year Tobacco Last Used: Quit 1999 - Caffeine Use Caffeine Use: Reports: Coffee, Soda - Alcohol Use Alcohol Use History: No - Recreational Drug Use Recreational Drug Use: No - Living Situation & Occupation Living situation: Reports: , Alone (in an apartment) Occupation: Retired ED ROS GENERAL - Review of Systems Review Of Systems: ROS reveals no pertinent complaints other than HPI. GI/Abdominal: Reports: Constipation (chronic) ED EXAM, GENERAL - Physical Exam Exam: See Below Exam Limited By: No Limitations General Appearance: Alert, WD/WN, No Apparent Distress Eye Exam: Bilateral Eye: EOMI, Normal Inspection, PERRL Ears: Normal External Exam, Hearing Grossly Normal Nose: Normal Inspection Throat/Mouth: Normal Inspection, Normal Lips, Normal Voice, No Airway Compromise Head: Atraumatic, Normocephalic Neck: Normal Inspection, Supple, Non-Tender, Full Range of Motion. No: Tender Midline Respiratory/Chest: No Respiratory Distress, Lungs Clear, Normal Breath Sounds, No Accessory Muscle Use Cardiovascular: Normal Peripheral Pulses, Regular Rate, Rhythm, No Gallop, No JVD, No Murmur, No Rub Peripheral Pulses: 4+: Radial (L), Radial (R) GI/Abdominal: Normal Bowel Sounds, Soft, Non-Tender, No Organomegaly, No Distention, No Abnormal Bruit, No Mass (Female) Exam: Deferred Rectal (Female) Exam: Deferred Back Exam: Normal Inspection, Full Range of Motion, NT Extremities: Normal Capillary Refill, Other (3-4+ pitting pretibial edema with chronic venous stasis changes, bilaterally.) Neurological: Alert, Oriented, CN II-XII Intact, Confused, Other (Generally weak , especially to the lower extremities) Psychiatric: Normal Affect Skin Exam: Warm, Dry, Intact, Normal Color, No Rash Course - Vital Signs Last Recorded V/S: Last Vital Signs Temp 37.3 C 06/30/19 17:33 Pulse 71 06/30/19 17:33 Resp 24 H 06/30/19 17:33 BP 104/55 L 06/30/19 17:33 Pulse Ox 90 L 06/30/19 17:33 - Orders/Labs/Meds Orders: Active Orders 24 hr Category Date Time Status Head wo Cont [CT] Stat Exams 06/30/19 18:25 Taken CULTURE URINE [RM] Stat Lab 06/30/19 20:34 Received Sodium Chloride 0.9% [Normal Saline] 1,000 ml Med 06/30/19 21:15 Active IV ASDIRECTED Medication Orders Sodium Chloride (Normal Saline) 1,000 mls @ 150 mls/hr IV ASDIRECTED MERCEDES Last Admin: 06/30/19 21:23 Dose: 150 mls/hr Labs: Laboratory Tests 06/30/19 06/30/19 06/30/19 Range/Units 19:35 19:35 19:35 WBC 6.27 (3.98-10.04) K/mm3 RBC 3.89 L (3.98-5.22) M/mm3 Hgb 12.1 (11.2-15.7) gm/dl Hct 37.7 (34.1-44.9) % MCV 96.9 H (79.4-94.8) fl MCH 31.1 (25.6-32.2) pg MCHC 32.1 L (32.2-35.5) g/dl RDW Std Deviation 49.0 H (36.4-46.3) fL Plt Count 153 L (182-369) K/mm3 MPV 10.2 (9.4-12.3) fl Neut % (Auto) 88.9 H (34.0-71.1) % Lymph % (Auto) 7.7 L (19.3-51.7) % [place] % (Auto) 2.7 L (4.7-12.5) % Eos % (Auto) 0 L (0.7-5.8) Baso % (Auto) 0.2 (0.1-1.2) % Neut # (Auto) 5.58 (1.56-6.13) K/mm3 Lymph # (Auto) 0.48 L (1.18-3.74) K/mm3 [place] # (Auto) 0.17 L (0.24-0.36) K/mm3 Eos # (Auto) 0.00 L (0.04-0.36) K/mm3 Baso # (Auto) 0.01 (0.01-0.08) K/mm3 Manual Slide Review Abnormal smear Sodium 141 (136-145) mEq/L Potassium 2.9 L (3.5-5.1) mEq/L Chloride 101 (98-107) mEq/L Carbon Dioxide 30 (21-32) mEq/L Anion Gap 12.9 (5-15) BUN 29 H (7-18) mg/dL Creatinine 1.3 H (0.55-1.02) mg/dL Est Cr Clr Drug Dosing 32.29 mL/min Estimated GFR (MDRD) 40 (>60) mL/min BUN/Creatinine Ratio 22.3 H (14-18) Glucose 124 H (83-115) mg/dL Calcium 8.9 (8.5-10.1) mg/dL Magnesium 1.3 L (1.8-2.4) mg/dl Total Bilirubin 1.3 H (0.2-1.0) mg/dL AST 309 H (15-37) U/L ALT 135 H (14-59) U/L Alkaline Phosphatase 156 H (46-116) U/L Total Protein 5.8 L (6.4-8.2) g/dl Albumin 3.0 L (3.4-5.0) g/dl Globulin 2.8 gm/dL Albumin/Globulin Ratio 1.1 (1-2) Urine Color (Yellow) Urine Appearance (Clear) Urine pH (5.0-8.0) Ur Specific [place] (1.005-1.030) Urine Protein (Negative) Urine Glucose (UA) (Negative) Urine Ketones (Negative) Urine Occult Blood (Negative) Urine Nitrite (Negative) Urine Bilirubin (Negative) Urine Urobilinogen (0.2-1.0) Ur Leukocyte Esterase (Negative) Urine RBC (0-5) /hpf Urine WBC (0-5) /hpf Ur Squamous Epith Cells (0-5) /hpf Amorphous Sediment (NOT SEEN) /hpf Urine Bacteria (FEW) /hpf Urine Mucus (FEW) /hpf 06/30/19 Range/Units 20:34 WBC (3.98-10.04) K/mm3 RBC (3.98-5.22) M/mm3 Hgb (11.2-15.7) gm/dl Hct (34.1-44.9) % MCV (79.4-94.8) fl MCH (25.6-32.2) pg MCHC (32.2-35.5) g/dl RDW Std Deviation (36.4-46.3) fL Plt Count (182-369) K/mm3 MPV (9.4-12.3) fl Neut % (Auto) (34.0-71.1) % Lymph % (Auto) (19.3-51.7) % [place] % (Auto) (4.7-12.5) % Eos % (Auto) (0.7-5.8) Baso % (Auto) (0.1-1.2) % Neut # (Auto) (1.56-6.13) K/mm3 Lymph # (Auto) (1.18-3.74) K/mm3 [place] # (Auto) (0.24-0.36) K/mm3 Eos # (Auto) (0.04-0.36) K/mm3 Baso # (Auto) (0.01-0.08) K/mm3 Manual Slide Review Sodium (136-145) mEq/L Potassium (3.5-5.1) mEq/L Chloride (98-107) mEq/L Carbon Dioxide (21-32) mEq/L Anion Gap (5-15) BUN (7-18) mg/dL Creatinine (0.55-1.02) mg/dL Est Cr Clr Drug Dosing mL/min Estimated GFR (MDRD) (>60) mL/min BUN/Creatinine Ratio (14-18) Glucose (83-115) mg/dL Calcium (8.5-10.1) mg/dL Magnesium (1.8-2.4) mg/dl Total Bilirubin (0.2-1.0) mg/dL AST (15-37) U/L ALT (14-59) U/L Alkaline Phosphatase (46-116) U/L Total Protein (6.4-8.2) g/dl Albumin (3.4-5.0) g/dl Globulin gm/dL Albumin/Globulin Ratio (1-2) Urine Color [place] H (Yellow) Urine Appearance Cloudy H (Clear) Urine pH 7.0 (5.0-8.0) Ur Specific [place] 1.020 (1.005-1.030) Urine Protein 1+ H (Negative) Urine Glucose (UA) Negative (Negative) Urine Ketones Negative (Negative) Urine Occult Blood 2+ H (Negative) Urine Nitrite Negative (Negative) Urine Bilirubin 1+ H (Negative) Urine Urobilinogen 0.2 (0.2-1.0) Ur Leukocyte Esterase 2+ H (Negative) Urine RBC 10-20 H (0-5) /hpf Urine WBC 50-75 H (0-5) /hpf Ur Squamous Epith Cells 0-5 (0-5) /hpf Amorphous Sediment Few H (NOT SEEN) /hpf Urine Bacteria Few (FEW) /hpf Urine Mucus Few (FEW) /hpf Meds: Medications Generic Name Dose Route Start Last Admin Trade Name Freq PRN Reason Stop Dose Admin Sodium Chloride 1,000 mls @ 150 mls/hr 06/30/19 21:15 06/30/19 21:23 Normal Saline IV 150 mls/hr ASDIRECTED MERCEDES Administration Discontinued Medications Generic Name Dose Route Start Last Admin Trade Name Freq PRN Reason Stop Dose Admin Magnesium Sulfate 2 gm/ Premix 50 mls @ 50 mls/hr 06/30/19 20:36 06/30/19 21: 55 IV 06/30/19 21:35 50 mls/hr ONETIME ONE Administration Ceftriaxone Sodium 1 gm/ 100 mls @ 200 mls/hr 06/30/19 21:07 06/30/19 21:23 Sodium Chloride IV 06/30/19 21:36 200 mls/hr ONETIME STA Administration - Re-Assessments/Exams Free Text/Narrative Re-Assessment/Exam: 06/30/19 19:16 The patient is somewhat forgetful, and not a very good historian, but I don't find any focal neurologic deficits on neurologic exam. Lower extremities, however, are quite weak, and it does not surprise me that she falls, even if she is using a walker. On physical exam, did not find any cranial injuries and I have ordered a CT scan of her head without contrast, but I don't expect to find any abnormalities. Nevertheless, I think the patient will need to be admitted to the hospital for contemplation of placement into a correction, as it does not appear that the patient is safe to live alone. The patient likely just finished a prescription for Macrobid for treatment of UTI diagnosed on 06/25/2019, however, she smells strongly of urine, therefore I will also order a urinalysis by quick catheter, along with some blood work, just make sure that there are no significant electrolyte abnormalities. 06/30/19 20:17 CT of the head without contrast is read by vRnani as: 1. Left parietal scalp swelling. No radiopaque foreign body. No acute calvarial fracture. 2. No evidence for acute transcortical infarct, acute intracranial hemorrhage, or mass effect. The patient's CBC is normal for platelets depressed at 153,000, but is otherwise unremarkable. Her CMP is remarkable for potassium depressed at 2.9, creatinine slightly elevated at 1.3, and blood glucose mildly elevated at 124. Her total bilirubin is mildly elevated at 1.3, her AST/ALT elevated at 309/135, and her alkaline phosphatase mildly elevated at 156. The remainder of her CMP is unremarkable. The patient's urinalysis is still pending. Due to the patient's anemia, I have ordered a magnesium level. Reviewing prior medical labs, I see that the patient's creatinine was normal at 0.9 on 06/28/2019. Further, while the patient's total bilirubin was elevated at 1.5 on 06/25/2019, her AST, ALT, and alkaline phosphatase were well within normal limits. 06/30/19 20:36 The patient's magnesium level has returned substantially depressed at 1.3. I have ordered a 2 g Mg-rider. Her potassium should be replaced after the magnesium has finished infusing. 06/30/19 21:12 The patient's urinalysis is consistent with a UTI. The urine culture from 2018 grew Escherichia coli, multiply susceptible except to trimethoprim/ sulfamethoxazole, however, her nitrate is negative tonight, whereas it was positive on 06/25/2019, suggesting the possibility of a different organism. I have ordered a urine culture and 1 g of IV Rocephin along with some IV fluid. 06/30/19 21:[address] Garza at 21:20. He is very familiar with the patient, but is concerned that the patient is entering a cycle of repeated admissions. He will come by the ED to evaluate the patient. 06/30/19 21:54 Dr. Garza has evaluated the patient. The patient does not want to go into a correction, which both Dr. Garza and I agree would be in the patient's best interest, however, for tonight purposes, he has agreed to admit the patient to address her acute medical issues. Departure - Departure Time of Disposition: 21:55 Disposition: Admitted As Inpatient 64 Condition: Fair Clinical Impression: Hypokalemia, Hypomagnesemia, Acute kidney injury, Hepatitis, Fall at home UTI (urinary tract infection) Qualifiers: Urinary tract infection type: site unspecified Hematuria presence: with hematuria Qualified Code(s): N39.0 - Urinary tract infection, site not specified - Discharge Information *PRESCRIPTION DRUG MONITORING PROGRAM REVIEWED*: Not Applicable *COPY OF PRESCRIPTION DRUG MONITORING REPORT IN PATIENT [place]: Not Applicable Referrals: Marilyn Bai WORLD DESIGNER [Primary Care Provider] - - My Orders Last 24 Hours: My Active Orders 06/30/19 18:25 Head wo Cont [CT] Stat 06/30/19 20:34 CULTURE URINE [RM] Stat 06/30/19 21:15 Sodium Chloride 0.9% [Normal Saline] 1,000 ml IV ASDIRECTED - Assessment/Plan Last 24 Hours: My Active Orders 06/30/19 18:25 Head wo Cont [CT] Stat 06/30/19 20:34 CULTURE URINE [RM] Stat 06/30/19 21:15 Sodium Chloride 0.9% [Normal Saline] 1,000 ml IV ASDIRECTED
[2019-06-30] MEDS ORDERED: Magnesium Sulfate/Water 2 GM in Premix Bag 1 BAG IV ONE ×2 (20:36→22:52)
[2019-06-30] MEDS ORDERED: cefTRIAXone 1 GM in Sodium Chloride 0.9% 100 ML IV STA (21:07)
[2019-06-30] MEDS ORDERED: Sodium Chloride 0.9% 1,000 ML IV SCH ×2 (21:15→23:00)
[2019-06-30] MEDS ORDERED: Non-Formulary Medication 1 Each (Levalbuterol Tartrate [Xopenex Hfa] 2 PUFF) INH PRN (22:49)
[2019-06-30] MEDS ORDERED: HYDROmorphone 0.5 MG/0.5 ML Syringe IVPUSH PRN (22:54)
[2019-06-30] MEDS ORDERED: Albuterol/Ipratropium 3.0-0.5 MG/3 ML Neb Soln NEB PRN (22:54)
[2019-06-30] MEDS ORDERED: Acetaminophen 325 MG Tab PO PRN (22:54)
[2019-06-30] MEDS ORDERED: Acetaminophen/HYDROcodone 325-5 MG Tab PO PRN (22:54)
[2019-06-30] MEDS ORDERED: Ondansetron 4 MG/2 ML SDV IV PRN (22:54)
[2019-06-30] MEDS ORDERED: Promethazine 6.25 MG in Sodium Chloride 0.9% 50 ML IV PRN (22:54)
[2019-06-30] MEDS ORDERED: Potassium Chloride 10 MEQ Tab.ER PO ONE (23:01)
--- NOTE | 2019-06-30 23:02 | PCM.HP.2 ---
H&P History of Present Illness - General Date of Service: 06/30/19 Admit Problem/Dx: Admission Diagnosis/Problem Admission Diagnosis/Problem UTI (urinary tract infection) due to urinary indwelling catheter Source of Information: Patient, Old Records, Provider, RN Notes Reviewed History Limitations: Reports: Physical Impairment - History of Present Illness Initial Comments - Free Text/Narative: This is a 73 yo elderly white female with past medical hx/o Impaired Vision, HTN , Asthma, OA/DJD, Stasis Dermatitis, Anxiety, Gait Instability, Status Post Fall with Facial Trauma, Morbid Obesity, and Recent Diagnosis of UTI who presents to ED this evening for recurrent fall in the bathroom after a neighbor went to check on her. She was just discharged here a couple of days ago after she was hospitalized due to a recent fall and treatment of uncomplicated urinary tract infection. She supposed to go a [facility] but decided to go back home and resume HHS in an effort to keep her independence. Unfortunately, she failed and was unable keep herself in a safe manner. Her initial lab in ED shows abnormal CBC and Chemistry. Her Head CT scan report read as no acute intra-cranial abnormality. Patient is primarily being admitted for failure to thrive and inability to care for her self. Anterior Headache Pain Score (Numeric/FACES): 10 - Related Data Allergies/Adverse Reactions: Allergies Allergy/AdvReac Type Severity Reaction Status Date / Time No Known Allergies Allergy Verified 07/01/19 03:56 Home Medications: Home Meds Doxepin [SINEquan] 10 mg PO BEDTIME 12/07/17 [History] Furosemide [Lasix] 20 mg PO DAILY 12/07/17 [History] Levalbuterol Tartrate [Xopenex HFA] 2 puff INH Q6H PRN 12/07/17 [History] Metoprolol Succinate [Toprol XL 100mg] 50 mg PO DAILY 12/07/17 [History] Venlafaxine HCl [Venlafaxine ER] 150 mg PO DAILY 12/07/17 [History] Cyanocobalamin (Vitamin B-12) [Vitamin B-12] 500 mcg PO DAILY 06/26/19 [History] Famotidine [Pepcid AC] 10 mg PO ACBREAKFAST 06/26/19 [History] Magnesium Oxide 400 mg PO BID #10 tablet 06/28/19 [Rx] Nitrofurantoin Monohyd/M-Cryst [Macrobid 100 mg Capsule] 100 mg PO BID #8 capsule 06/28/19 [Rx] Saccharomyces Boulardii [Florastor] 250 mg PO DAILY #8 capsule 06/28/19 [Rx] Cholecalciferol (Vitamin D3) [Vitamin D3] 2,000 unit PO DAILY 06/30/19 [History] Fesoterodine Fumarate [Toviaz] 8 mg PO DAILY 07/01/19 [History] Levalbuterol Tartrate [Xopenex Hfa] 2 puff INH Q4HR PRN 07/01/19 [History] Past Medical History HEENT History: Reports: Impaired Vision Other HEENT History: Wears glasses Cardiovascular History: Reports: Hypertension Respiratory History: Reports: Asthma Gastrointestinal History: Reports: Chronic Constipation Genitourinary History: Reports: Urinary Incontinence ATTENUATOR History: Reports: Endometriosis Musculoskeletal History: Reports: Osteoarthritis Neurological History: Reports: Other (See Below) (Gait instability) Psychiatric History: Reports: Anxiety Endocrine/Metabolic History: Reports: Obesity/BMI 30+ Immunologic History: Reports: None Oncologic (Cancer) History: Reports: None Dermatologic History: Reports: Other (See Below) (Basis dermatitis bilateral lower extremity) Other Dermatologic History: sentitive skin, "break out easy" - Past Surgical History HEENT Surgical History: Reports: Tonsillectomy GI Surgical History: Reports: Colonoscopy, EGD Female Surgical History: Reports: Hysterectomy (complete) Social & Family History - Family History Family Medical History: Noncontributory - Tobacco Use Smoking Status *Q: Former Smoker Used Tobacco, but Quit: Yes Month/Year Tobacco Last Used: Quit 1999 - Caffeine Use Caffeine Use: Reports: Coffee, Soda - Recreational Drug Use Recreational Drug Use: No - Living Situation & Occupation Living situation: Reports: , Alone (in an apartment) Occupation: Retired H&P Review of Systems - Review of Systems: Review Of Systems: ROS reveals no pertinent complaints other than HPI. Exam - Exam Exam: See Below - Vital Signs Vital Signs: Last Vital Signs Temp 37.3 C 06/30/19 17:33 Pulse 71 06/30/19 17:33 Resp 24 H 06/30/19 17:33 BP 104/55 L 06/30/19 17:33 Pulse Ox 90 L 06/30/19 17:33 Weight: 127.006 kg - Exam Quality Assessment: Other (Morbidly Obese) General: Alert, Cooperative, Mild Distress HEENT: Conjunctiva Clear, EACs Clear, EOMI, Hearing Intact, Mucosa Moist & [place] , Nares Patent, Normal Nasal Septum, Posterior Pharynx Clear, Pupils Equal, Pupils Reactive, Other (right noris-orbital ecchymosis) Neck: Supple, Trachea Midline Lungs: Normal Respiratory Effort, Decreased Breath Sounds Cardiovascular: Regular Rate, Regular Rhythm GI/Abdominal Exam: Normal Bowel Sounds, Soft, Non-Tender, No Organomegaly, No Distention, No Abnormal Bruit, Other (Obese) (Female) Exam: Deferred Rectal (Female) Exam: Deferred Back Exam: Normal Inspection, Decreased Range of Motion Extremities: Non-Tender, Slow Capillary Refill, Limited Range of Motion, Other ( b/l edema with chronic stasis dermatitis). No: Leg Pain Peripheral Pulses: 1+: Dorsalis Pedis (L), Dorsalis Pedis (R) Skin: Warm, Dry, Intact Skin Alteration Location (Drawings Not To Scale): 1 - 2 old scabs. chronic edema and erythema Neuro Extensive - Mental Status: Oriented x3, Normal Cognition, Memory Intact Neuro Extensive - Motor, Sensory, Reflexes: CN II-XII Intact (limited due to body habitus), Abnormal Gait Psychiatric: Alert, Normal Affect, Normal Mood - Patient Data Lab Results Last 24 hrs: Laboratory Results - last 24 hr 06/30/19 06/30/19 06/30/19 Range/Units 19:35 19:35 19:35 WBC 6.27 (3.98-10.04) K/mm3 RBC 3.89 L (3.98-5.22) M/mm3 Hgb 12.1 (11.2-15.7) gm/dl Hct 37.7 (34.1-44.9) % MCV 96.9 H (79.4-94.8) fl MCH 31.1 (25.6-32.2) pg MCHC 32.1 L (32.2-35.5) g/dl RDW Std Deviation 49.0 H (36.4-46.3) fL Plt Count 153 L (182-369) K/mm3 MPV 10.2 (9.4-12.3) fl Neut % (Auto) 88.9 H (34.0-71.1) % Lymph % (Auto) 7.7 L (19.3-51.7) % [place] % (Auto) 2.7 L (4.7-12.5) % Eos % (Auto) 0 L (0.7-5.8) Baso % (Auto) 0.2 (0.1-1.2) % Neut # (Auto) 5.58 (1.56-6.13) K/mm3 Lymph # (Auto) 0.48 L (1.18-3.74) K/mm3 [place] # (Auto) 0.17 L (0.24-0.36) K/mm3 Eos # (Auto) 0.00 L (0.04-0.36) K/mm3 Baso # (Auto) 0.01 (0.01-0.08) K/mm3 Manual Slide Review Abnormal smear Sodium 141 (136-145) mEq/L Potassium 2.9 L (3.5-5.1) mEq/L Chloride 101 (98-107) mEq/L Carbon Dioxide 30 (21-32) mEq/L Anion Gap 12.9 (5-15) BUN 29 H (7-18) mg/dL Creatinine 1.3 H (0.55-1.02) mg/dL Est Cr Clr Drug Dosing 32.29 mL/min Estimated GFR (MDRD) 40 (>60) mL/min BUN/Creatinine Ratio 22.3 H (14-18) Glucose 124 H (83-115) mg/dL Calcium 8.9 (8.5-10.1) mg/dL Magnesium 1.3 L (1.8-2.4) mg/dl Total Bilirubin 1.3 H (0.2-1.0) mg/dL AST 309 H (15-37) U/L ALT 135 H (14-59) U/L Alkaline Phosphatase 156 H (46-116) U/L Total Protein 5.8 L (6.4-8.2) g/dl Albumin 3.0 L (3.4-5.0) g/dl Globulin 2.8 gm/dL Albumin/Globulin Ratio 1.1 (1-2) Urine Color (Yellow) Urine Appearance (Clear) Urine pH (5.0-8.0) Ur Specific [place] (1.005-1.030) Urine Protein (Negative) Urine Glucose (UA) (Negative) Urine Ketones (Negative) Urine Occult Blood (Negative) Urine Nitrite (Negative) Urine Bilirubin (Negative) Urine Urobilinogen (0.2-1.0) Ur Leukocyte Esterase (Negative) Urine RBC (0-5) /hpf Urine WBC (0-5) /hpf Ur Squamous Epith Cells (0-5) /hpf Amorphous Sediment (NOT SEEN) /hpf Urine Bacteria (FEW) /hpf Urine Mucus (FEW) /hpf 06/30/19 Range/Units 20:34 WBC (3.98-10.04) K/mm3 RBC (3.98-5.22) M/mm3 Hgb (11.2-15.7) gm/dl Hct (34.1-44.9) % MCV (79.4-94.8) fl MCH (25.6-32.2) pg MCHC (32.2-35.5) g/dl RDW Std Deviation (36.4-46.3) fL Plt Count (182-369) K/mm3 MPV (9.4-12.3) fl Neut % (Auto) (34.0-71.1) % Lymph % (Auto) (19.3-51.7) % [place] % (Auto) (4.7-12.5) % Eos % (Auto) (0.7-5.8) Baso % (Auto) (0.1-1.2) % Neut # (Auto) (1.56-6.13) K/mm3 Lymph # (Auto) (1.18-3.74) K/mm3 [place] # (Auto) (0.24-0.36) K/mm3 Eos # (Auto) (0.04-0.36) K/mm3 Baso # (Auto) (0.01-0.08) K/mm3 Manual Slide Review Sodium (136-145) mEq/L Potassium (3.5-5.1) mEq/L Chloride (98-107) mEq/L Carbon Dioxide (21-32) mEq/L Anion Gap (5-15) BUN (7-18) mg/dL Creatinine (0.55-1.02) mg/dL Est Cr Clr Drug Dosing mL/min Estimated GFR (MDRD) (>60) mL/min BUN/Creatinine Ratio (14-18) Glucose (83-115) mg/dL Calcium (8.5-10.1) mg/dL Magnesium (1.8-2.4) mg/dl Total Bilirubin (0.2-1.0) mg/dL AST (15-37) U/L ALT (14-59) U/L Alkaline Phosphatase (46-116) U/L Total Protein (6.4-8.2) g/dl Albumin (3.4-5.0) g/dl Globulin gm/dL Albumin/Globulin Ratio (1-2) Urine Color [place] H (Yellow) Urine Appearance Cloudy H (Clear) Urine pH 7.0 (5.0-8.0) Ur Specific [place] 1.020 (1.005-1.030) Urine Protein 1+ H (Negative) Urine Glucose (UA) Negative (Negative) Urine Ketones Negative (Negative) Urine Occult Blood 2+ H (Negative) Urine Nitrite Negative (Negative) Urine Bilirubin 1+ H (Negative) Urine Urobilinogen 0.2 (0.2-1.0) Ur Leukocyte Esterase 2+ H (Negative) Urine RBC 10-20 H (0-5) /hpf Urine WBC 50-75 H (0-5) /hpf Ur Squamous Epith Cells 0-5 (0-5) /hpf Amorphous Sediment Few H (NOT SEEN) /hpf Urine Bacteria Few (FEW) /hpf Urine Mucus Few (FEW) /hpf Result Diagrams: 07/01/19 05:21 07/01/19 05:21 Problem List Initiated/Reviewed/Updated: Yes Orders Last 24hrs: Active Orders 24 hr Category Date Time Status Admission Status [Patient Status] [ADT] Routine ADT 06/30/19 22:22 Active Head wo Cont [CT] Stat Exams 06/30/19 18:25 Taken CULTURE URINE [RM] Stat Lab 06/30/19 20:34 Received Sodium Chloride 0.9% [Normal Saline] 1,000 ml Med 06/30/19 21:15 Active IV ASDIRECTED Medication Orders Sodium Chloride (Normal Saline) 1,000 mls @ 150 mls/hr IV ASDIRECTED [facility] Last Admin: 06/30/19 21:23 Dose: 150 mls/hr Assessment/Plan Comment:: Assessment: Acute: UTI - Diagnosed on previous admission - 2/2 E. coli - IV Rocephin 1 gram daily Recurrent Fall - Again found on the bathroom by a neighbor this would be her a recurrent episode - She is likely non-complaint Hypomagnesemia - Mg 1.3; 1.1 on recent admission - Replete and monitor Hypokalemia - K of 2.9 - Replete and monitor Renal Insufficiency - Cr of 1.3 with BUN of 29 - Likely from Pre-renal Azotemia - IV hydration and monitor output Transaminitis - AST of 135, ALT of 156 - Alk phos of 156 with Total Bilirubin of 1.3 - She likely has fatty liver disease (she is morbidly obese) - GGT to r/o biliary component - Avoid tylenol for now - Liver U/S in AM and Hepatitis Panel Generalized Weakness - 2/2 Metabolic Derangement and Recent Fall - PT/OT eval - Vit D level normal Morbid Obesity - Dietary consult for weight management - BMI of 48 Failure to Thrive - Patient just recently discharged from the hospital - Has HHS but failed to take care herself - She has no family support locally - States her sister from [place] will be coming down to be with her but with unknown duration of stay - She needs 24hr care or NH placement Chronic: Impaired Vision, HTN, Asthma, OA/DJD, Stasis Dermatitis, Anxiety, Gait Instability S/p Fall and Morbid Obesity Plan: Admitted to [facility] Resume Home Meds Routine AM labs AHA diet Lipase and Ammonia level Dietary consult for weight management DVT/GI Prophylaxis Fall Precautions PT/OT to assess and treat SW/CM for d/c planing Recommend NH placement Code status: full Additional orders as above - Mortality Measure Prognosis:: Good
[2019-06-30] MEDS ORDERED: Albuterol 6.7 GM Inhaler INH PRN (23:27)
[2019-07-01] MEDS: Potassium Chloride 10 MEQ in Premix Bag 1 BAG IV SCH ×6 (00:09→05:45)
[2019-07-01] MEDS: Acetaminophen/Butalbital/Caffeine 325-50-40 MG Tab PO PRN ×2 (01:26→10:01)
[2019-07-01] MEDS ORDERED: Potassium Chloride 20 MEQ Tab.ER PO ONE ×2 (07:14→10:15)
--- NOTE | 2019-07-01 07:16 | PCM.PN ---
- General Info Date of Service: 07/01/19 Admission Dx/Problem (Free Text): Admission Diagnosis/Problem Admission Diagnosis/Problem UTI (urinary tract infection) due to urinary indwelling catheter Subjective Update: Follow up Functional Status: Reports: Pain Controlled, Tolerating Diet, Ambulating, Urinating, New Symptoms (tired) - Review of Systems General: Denies: Fever, Weakness, Malaise, Chills HEENT: Reports: No Symptoms Pulmonary: Denies: Shortness of Breath Cardiovascular: Denies: Chest Pain, Dyspnea on Exertion, Lightheadedness Gastrointestinal: Denies: Abdominal Pain, Nausea, Vomiting Genitourinary: Reports: No Symptoms Musculoskeletal: Reports: No Symptoms Neurological: Reports: Difficulty Walking, Gait Disturbance. Denies: Confusion , Weakness Psychiatric: Denies: Depression, Anxiety, Agitation, Hallucinations Systems Review Comment:: No overnight issues but feels tired this morning. - Patient Data Vitals - Most Recent: Last Vital Signs Temp 36.3 C 06/30/19 22:43 Pulse 86 06/30/19 22:50 Resp 16 06/30/19 22:43 BP 135/59 L 06/30/19 22:43 Pulse Ox 96 06/30/19 22:50 Weight - Most Recent: 112.446 kg Lab Results Last 24 Hours: Laboratory Results - last 24 hr 06/30/19 06/30/19 06/30/19 Range/Units 19:35 19:35 19:35 WBC 6.27 (3.98-10.04) K/mm3 RBC 3.89 L (3.98-5.22) M/mm3 Hgb 12.1 (11.2-15.7) gm/dl Hct 37.7 (34.1-44.9) % MCV 96.9 H (79.4-94.8) fl MCH 31.1 (25.6-32.2) pg MCHC 32.1 L (32.2-35.5) g/dl RDW Std Deviation 49.0 H (36.4-46.3) fL Plt Count 153 L (182-369) K/mm3 MPV 10.2 (9.4-12.3) fl Neut % (Auto) 88.9 H (34.0-71.1) % Lymph % (Auto) 7.7 L (19.3-51.7) % [place] % (Auto) 2.7 L (4.7-12.5) % Eos % (Auto) 0 L (0.7-5.8) Baso % (Auto) 0.2 (0.1-1.2) % Neut # (Auto) 5.58 (1.56-6.13) K/mm3 Lymph # (Auto) 0.48 L (1.18-3.74) K/mm3 [place] # (Auto) 0.17 L (0.24-0.36) K/mm3 Eos # (Auto) 0.00 L (0.04-0.36) K/mm3 Baso # (Auto) 0.01 (0.01-0.08) K/mm3 Manual Slide Review Abnormal smear Sodium 141 (136-145) mEq/L Potassium 2.9 L (3.5-5.1) mEq/L Chloride 101 (98-107) mEq/L Carbon Dioxide 30 (21-32) mEq/L Anion Gap 12.9 (5-15) BUN 29 H (7-18) mg/dL Creatinine 1.3 H (0.55-1.02) mg/dL Est Cr Clr Drug Dosing 32.29 mL/min Estimated GFR (MDRD) 40 (>60) mL/min BUN/Creatinine Ratio 22.3 H (14-18) Glucose 124 H (83-115) mg/dL Calcium 8.9 (8.5-10.1) mg/dL Magnesium 1.3 L (1.8-2.4) mg/dl Total Bilirubin 1.3 H (0.2-1.0) mg/dL Direct Bilirubin (0.0-0.2) mg/dl GGT (5-55) U/L AST 309 H (15-37) U/L ALT 135 H (14-59) U/L Alkaline Phosphatase 156 H (46-116) U/L Ammonia (11-32) umol/L C-Reactive Protein (<1.0) mg/dL Total Protein 5.8 L (6.4-8.2) g/dl Albumin 3.0 L (3.4-5.0) g/dl Globulin 2.8 gm/dL Albumin/Globulin Ratio 1.1 (1-2) Lipase (73-393) U/L Urine Color (Yellow) Urine Appearance (Clear) Urine pH (5.0-8.0) Ur Specific [place] (1.005-1.030) Urine Protein (Negative) Urine Glucose (UA) (Negative) Urine Ketones (Negative) Urine Occult Blood (Negative) Urine Nitrite (Negative) Urine Bilirubin (Negative) Urine Urobilinogen (0.2-1.0) Ur Leukocyte Esterase (Negative) Urine RBC (0-5) /hpf Urine WBC (0-5) /hpf Ur Squamous Epith Cells (0-5) /hpf Amorphous Sediment (NOT SEEN) /hpf Urine Bacteria (FEW) /hpf Urine Mucus (FEW) /hpf Hepatitis C Antibody (NEGATIVE) MRSA (PCR) 06/30/19 06/30/19 06/30/19 Range/Units 19:35 19:35 20:34 WBC (3.98-10.04) K/mm3 RBC (3.98-5.22) M/mm3 Hgb (11.2-15.7) gm/dl Hct (34.1-44.9) % MCV (79.4-94.8) fl MCH (25.6-32.2) pg MCHC (32.2-35.5) g/dl RDW Std Deviation (36.4-46.3) fL Plt Count (182-369) K/mm3 MPV (9.4-12.3) fl Neut % (Auto) (34.0-71.1) % Lymph % (Auto) (19.3-51.7) % [place] % (Auto) (4.7-12.5) % Eos % (Auto) (0.7-5.8) Baso % (Auto) (0.1-1.2) % Neut # (Auto) (1.56-6.13) K/mm3 Lymph # (Auto) (1.18-3.74) K/mm3 [place] # (Auto) (0.24-0.36) K/mm3 Eos # (Auto) (0.04-0.36) K/mm3 Baso # (Auto) (0.01-0.08) K/mm3 Manual Slide Review Sodium (136-145) mEq/L Potassium (3.5-5.1) mEq/L Chloride (98-107) mEq/L Carbon Dioxide (21-32) mEq/L Anion Gap (5-15) BUN (7-18) mg/dL Creatinine (0.55-1.02) mg/dL Est Cr Clr Drug Dosing mL/min Estimated GFR (MDRD) (>60) mL/min BUN/Creatinine Ratio (14-18) Glucose (83-115) mg/dL Calcium (8.5-10.1) mg/dL Magnesium (1.8-2.4) mg/dl Total Bilirubin (0.2-1.0) mg/dL Direct Bilirubin 0.50 H (0.0-0.2) mg/dl GGT 81 H (5-55) U/L AST (15-37) U/L ALT (14-59) U/L Alkaline Phosphatase (46-116) U/L Ammonia (11-32) umol/L C-Reactive Protein (<1.0) mg/dL Total Protein (6.4-8.2) g/dl Albumin (3.4-5.0) g/dl Globulin gm/dL Albumin/Globulin Ratio (1-2) Lipase 27 L (73-393) U/L Urine Color [place] H (Yellow) Urine Appearance Cloudy H (Clear) Urine pH 7.0 (5.0-8.0) Ur Specific [place] 1.020 (1.005-1.030) Urine Protein 1+ H (Negative) Urine Glucose (UA) Negative (Negative) Urine Ketones Negative (Negative) Urine Occult Blood 2+ H (Negative) Urine Nitrite Negative (Negative) Urine Bilirubin 1+ H (Negative) Urine Urobilinogen 0.2 (0.2-1.0) Ur Leukocyte Esterase 2+ H (Negative) Urine RBC 10-20 H (0-5) /hpf Urine WBC 50-75 H (0-5) /hpf Ur Squamous Epith Cells 0-5 (0-5) /hpf Amorphous Sediment Few H (NOT SEEN) /hpf Urine Bacteria Few (FEW) /hpf Urine Mucus Few (FEW) /hpf Hepatitis C Antibody Negative (NEGATIVE) MRSA (PCR) 06/30/19 07/01/19 07/01/19 Range/Units 23:55 00:05 05:21 WBC 5.20 (3.98-10.04) K/mm3 RBC 4.00 (3.98-5.22) M/mm3 Hgb 12.4 (11.2-15.7) gm/dl Hct 38.7 (34.1-44.9) % MCV 96.8 H (79.4-94.8) fl MCH 31.0 (25.6-32.2) pg MCHC 32.0 L (32.2-35.5) g/dl RDW Std Deviation 49.2 H (36.4-46.3) fL Plt Count 165 L (182-369) K/mm3 MPV 10.4 (9.4-12.3) fl Neut % (Auto) 91.5 H (34.0-71.1) % Lymph % (Auto) 5.4 L (19.3-51.7) % [place] % (Auto) 2.5 L (4.7-12.5) % Eos % (Auto) 0.2 L (0.7-5.8) Baso % (Auto) 0.2 (0.1-1.2) % Neut # (Auto) 4.76 (1.56-6.13) K/mm3 Lymph # (Auto) 0.28 L (1.18-3.74) K/mm3 [place] # (Auto) 0.13 L (0.24-0.36) K/mm3 Eos # (Auto) 0.01 L (0.04-0.36) K/mm3 Baso # (Auto) 0.01 (0.01-0.08) K/mm3 Manual Slide Review Sodium (136-145) mEq/L Potassium (3.5-5.1) mEq/L Chloride (98-107) mEq/L Carbon Dioxide (21-32) mEq/L Anion Gap (5-15) BUN (7-18) mg/dL Creatinine (0.55-1.02) mg/dL Est Cr Clr Drug Dosing mL/min Estimated GFR (MDRD) (>60) mL/min BUN/Creatinine Ratio (14-18) Glucose (83-115) mg/dL Calcium (8.5-10.1) mg/dL Magnesium (1.8-2.4) mg/dl Total Bilirubin (0.2-1.0) mg/dL Direct Bilirubin (0.0-0.2) mg/dl GGT (5-55) U/L AST (15-37) U/L ALT (14-59) U/L Alkaline Phosphatase (46-116) U/L Ammonia < 10 L (11-32) umol/L C-Reactive Protein (<1.0) mg/dL Total Protein (6.4-8.2) g/dl Albumin (3.4-5.0) g/dl Globulin gm/dL Albumin/Globulin Ratio (1-2) Lipase (73-393) U/L Urine Color (Yellow) Urine Appearance (Clear) Urine pH (5.0-8.0) Ur Specific [place] (1.005-1.030) Urine Protein (Negative) Urine Glucose (UA) (Negative) Urine Ketones (Negative) Urine Occult Blood (Negative) Urine Nitrite (Negative) Urine Bilirubin (Negative) Urine Urobilinogen (0.2-1.0) Ur Leukocyte Esterase (Negative) Urine RBC (0-5) /hpf Urine WBC (0-5) /hpf Ur Squamous Epith Cells (0-5) /hpf Amorphous Sediment (NOT SEEN) /hpf Urine Bacteria (FEW) /hpf Urine Mucus (FEW) /hpf Hepatitis C Antibody (NEGATIVE) MRSA (PCR) Negative 07/01/19 Range/Units 05:21 WBC (3.98-10.04) K/mm3 RBC (3.98-5.22) M/mm3 Hgb (11.2-15.7) gm/dl Hct (34.1-44.9) % MCV (79.4-94.8) fl MCH (25.6-32.2) pg MCHC (32.2-35.5) g/dl RDW Std Deviation (36.4-46.3) fL Plt Count (182-369) K/mm3 MPV (9.4-12.3) fl Neut % (Auto) (34.0-71.1) % Lymph % (Auto) (19.3-51.7) % [place] % (Auto) (4.7-12.5) % Eos % (Auto) (0.7-5.8) Baso % (Auto) (0.1-1.2) % Neut # (Auto) (1.56-6.13) K/mm3 Lymph # (Auto) (1.18-3.74) K/mm3 [place] # (Auto) (0.24-0.36) K/mm3 Eos # (Auto) (0.04-0.36) K/mm3 Baso # (Auto) (0.01-0.08) K/mm3 Manual Slide Review Sodium 139 (136-145) mEq/L Potassium 3.4 L (3.5-5.1) mEq/L Chloride 101 (98-107) mEq/L Carbon Dioxide 31 (21-32) mEq/L Anion Gap 10.4 (5-15) BUN 28 H (7-18) mg/dL Creatinine 1.2 H (0.55-1.02) mg/dL Est Cr Clr Drug Dosing 36.45 mL/min Estimated GFR (MDRD) 44 (>60) mL/min BUN/Creatinine Ratio 23.3 H (14-18) Glucose 105 (83-115) mg/dL Calcium 8.5 (8.5-10.1) mg/dL Magnesium 1.8 (1.8-2.4) mg/dl Total Bilirubin 1.9 H (0.2-1.0) mg/dL Direct Bilirubin (0.0-0.2) mg/dl GGT (5-55) U/L AST 384 H (15-37) U/L ALT 174 H (14-59) U/L Alkaline Phosphatase 238 H (46-116) U/L Ammonia (11-32) umol/L C-Reactive Protein 16.2 H* (<1.0) mg/dL Total Protein 5.8 L (6.4-8.2) g/dl Albumin 2.7 L (3.4-5.0) g/dl Globulin 3.1 gm/dL Albumin/Globulin Ratio 0.9 L (1-2) Lipase (73-393) U/L Urine Color (Yellow) Urine Appearance (Clear) Urine pH (5.0-8.0) Ur Specific [place] (1.005-1.030) Urine Protein (Negative) Urine Glucose (UA) (Negative) Urine Ketones (Negative) Urine Occult Blood (Negative) Urine Nitrite (Negative) Urine Bilirubin (Negative) Urine Urobilinogen (0.2-1.0) Ur Leukocyte Esterase (Negative) Urine RBC (0-5) /hpf Urine WBC (0-5) /hpf Ur Squamous Epith Cells (0-5) /hpf Amorphous Sediment (NOT SEEN) /hpf Urine Bacteria (FEW) /hpf Urine Mucus (FEW) /hpf Hepatitis C Antibody (NEGATIVE) MRSA (PCR) Med Orders - Current: Current Medications Acetaminophen/Butalbital/Caffeine (Fioricet 325-50-40 Mg) 1 tab PO Q6H PRN PRN Reason: Headache Last Admin: 07/01/19 01:26 Dose: 1 tab Albuterol (Proventil Hfa) 0 gm INH Q4H PRN PRN Reason: Shortness of Breath Albuterol/Ipratropium (Duoneb 3.0-0.5 Mg/3 Ml) 3 ml NEB Q4H PRN PRN Reason: Shortness Of Breath/wheezing Bisacodyl (Dulcolax) 5 mg PO DAILY PRN PRN Reason: Constipation Cholecalciferol (Vitamin D3) 50 mcg PO DAILY [facility] Cyanocobalamin (Vitamin B12) 500 mcg PO DAILY [facility] Docusate Sodium (Colace) 100 mg PO BID PRN PRN Reason: Constipation Doxepin HCl (Sinequan) 10 mg PO BEDTIME [facility] Enoxaparin Sodium (Lovenox) 40 mg SUBCUT DAILY [facility] Famotidine (Pepcid) 10 mg PO ACBREAKFAST [facility] Furosemide (Lasix) 20 mg PO DAILY [facility] Hydromorphone HCl (Dilaudid) 0.25 mg IVPUSH Q2H PRN PRN Reason: Pain (severe 7-10) Ceftriaxone Sodium 1 gm/ (Sodium Chloride) 100 mls @ 200 mls/hr IV Q24H [facility] Promethazine HCl 6.25 mg/ (Sodium Chloride) 50.25 mls @ 100 mls/hr IV Q6H PRN PRN Reason: Nausea/Vomiting Sodium Chloride (Normal Saline) 1,000 mls @ 50 mls/hr IV ASDIRECTED [facility] Ibuprofen (Motrin) 400 mg PO Q6H PRN PRN Reason: fever/pain Magnesium Oxide (Magnesium Oxide) 400 mg PO BID [facility] Metoprolol Succinate (Toprol Xl) 50 mg PO DAILY [facility] Ondansetron HCl (Zofran) 4 mg IV Q6H PRN PRN Reason: Nausea/Vomiting Pantoprazole Sodium (Protonix) 40 mg PO BID@0700,1600 [facility] Potassium Chloride (Klor-Con 10) 60 meq PO ONETIME ONE Stop: 07/01/19 07:15 Saccharomyces Boulardii (Florastor) 250 mg PO DAILY [facility] Senna/Docusate Sodium (Senna Plus) 1 tab PO BID PRN PRN Reason: Constipation Temazepam (Restoril) 7.5 mg PO BEDTIME PRN PRN Reason: Sleep Venlafaxine HCl (Effexor Xr) 150 mg PO DAILY [facility] [place] Discontinued Medications Acetaminophen (Tylenol) 650 mg PO Q4H PRN PRN Reason: Pain (Mild 1-3)/fever Hydrocodone Bitart/Acetaminophen ([place] 325-5 Mg) 1 tab PO Q4H PRN PRN Reason: Pain (moderate 4-6) Magnesium Sulfate 2 gm/ Premix 50 mls @ 50 mls/hr IV ONETIME ONE Stop: 06/30/19 21:35 Last Admin: 06/30/19 21:55 Dose: 50 mls/hr Ceftriaxone Sodium 1 gm/ (Sodium Chloride) 100 mls @ 200 mls/hr IV ONETIME STA Stop: 06/30/19 21:36 Last Admin: 06/30/19 21:23 Dose: 200 mls/hr Sodium Chloride (Normal Saline) 1,000 mls @ 150 mls/hr IV ASDIRECTED [facility] [place] Last Admin: 06/30/19 21:23 Dose: 150 mls/hr Magnesium Sulfate 2 gm/ Premix 50 mls @ 25 mls/hr IV ONETIME ONE Stop: 07/01/19 00:51 Last Admin: 07/01/19 00:08 Dose: 25 mls/hr Potassium Chloride 10 meq/ (Premix) 100 mls @ 100 mls/hr IV Q1H [facility] [place] Stop: 07/01/19 05:29 Last Admin: 07/01/19 05:45 Dose: 100 mls/hr Potassium Chloride (Klor-Con 10) 60 meq PO ONETIME ONE Stop: 06/30/19 23:02 Last Admin: 07/01/19 00:08 Dose: 60 meq - Exam General: Alert, Oriented, Cooperative, No Acute Distress, Other (Mobidly Obese) HEENT: Pupils Equal, Pupils Reactive Neck: Supple Lungs: Normal Respiratory Effort, Decreased Breath Sounds Cardiovascular: Regular Rate, Regular Rhythm, Murmurs GI/Abdominal Exam: Normal Bowel Sounds, Soft, Non-Tender, No Organomegaly, No Distention, No Abnormal Bruit, Other (Obese) (Female) Exam: Deferred Back Exam: Normal Inspection, Decreased Range of Motion Extremities: Normal Capillary Refill, Pedal Edema, Limited Range of Motion, Redness Peripheral Pulses: 2+: Dorsalis Pedis (L), Dorsalis Pedis (R) Skin: Warm, Dry, Intact Neurological: No New Focal Deficit (limited due to morbid obesity). No: Normal Gait Psy/Mental Status: Alert, Normal Affect, Normal Mood - Problem List Review Problem List Initiated/Reviewed/Updated: Yes - My Orders Last 24 Hours: My Active Orders 06/30/19 22:53 Oxygen Therapy [RC] PRN VTE/DVT Education [RC] PER UNIT ROUTINE Vital Signs [RC] Q4HR Resuscitation Status Routine 06/30/19 22:54 Height and Weight [RC] 04,16 Intake and Output [RC] ,16 Up With Assistance [RC] Up ad Sarah [RC] Consult to Case Management/[employer] [CONS] Routine Consult to Lacing Cutter [CONS] Routine Consult to Spiritual Care [CONS] Routine OT Evaluation and Treatment [CONS] Routine PT Evaluation and Treatment [CONS] Routine Albuterol/Ipratropium [DuoNeb 3.0-0.5 MG/3 ML] 3 ml NEB Q4H PRN Bisacodyl [Dulcolax] 5 mg PO DAILY PRN Docusate Sodium [Colace] 100 mg PO BID PRN Docusate Sodium/Sennosides [Senna Plus] 1 tab PO BID PRN HYDROmorphone [Dilaudid] 0.25 mg IVPUSH Q2H PRN Ondansetron [Zofran] 4 mg IV Q6H PRN Promethazine [Phenergan] 6.25 mg Sodium Chloride 0.9% [Normal Saline] 50 ml IV Q6H Temazepam [Restoril] 7.5 mg PO BEDTIME PRN 06/30/19 22:55 RT Aerosol Therapy [RC] ASDIRECTED 06/30/19 22:57 HEPATITIS B SURF AB QUANT [REF] Stat HEPATITIS B SURFACE AG [CHEM] Routine 06/30/19 22:58 Ibuprofen [Motrin] 400 mg PO Q6H PRN 06/30/19 22:59 Acetaminophen/Butalbital/Caff [Fioricet 325-50-40 MG] 1 tab PO Q6H PRN 06/30/19 23:00 Abdomen Comp [US] Routine Sodium Chloride 0.9% [Normal Saline] 1,000 ml IV ASDIRECTED 06/30/19 23:27 Albuterol [Proventil HFA] 0 gm INH Q4H PRN 06/30/19 Lunch Heart Healthy Diet [DIET] 07/01/19 05:21 CBC WITH AUTO DIFF [HEME] AM 07/01/19 06:00 Famotidine [Pepcid] 10 mg PO ACBREAKFAST 07/01/19 07:00 Pantoprazole [ProTONIX] 40 mg PO BID@0700,1600 07/01/19 07:14 Potassium Chloride [Klor-Con 10] 60 meq PO ONETIME ONE 07/01/19 09:00 Cholecalciferol (Vitamin D3) [Vitamin D3] 50 mcg PO DAILY Cyanocobalamin (Vitamin B12) [Vitamin B12] 500 mcg PO DAILY Enoxaparin [Lovenox] 40 mg SUBCUT DAILY Furosemide [Lasix] 20 mg PO DAILY Magnesium Oxide 400 mg PO BID Metoprolol Succinate [Toprol XL] 50 mg PO DAILY Saccharomyces Boulardii [Florastor] 250 mg PO DAILY Venlafaxine [Effexor XR] 150 mg PO DAILY 07/01/19 21:00 Doxepin [SINEquan] 10 mg PO BEDTIME cefTRIAXone [Rocephin] 1 gm Sodium Chloride 0.9% [Normal Saline] 100 ml IV Q24H 07/01/19 Breakfast NPO Now [Nothing per Oral Now Diet] [DIET] 07/02/19 05:11 C-REACTIVE PROTEIN [CHEM] AM CBC WITH AUTO DIFF [HEME] AM CMP [COMPREHENSIVE METABOLIC PN,CMP] [CHEM] AM MAGNESIUM [CHEM] AM 07/03/19 05:11 C-REACTIVE PROTEIN [CHEM] AM CBC WITH AUTO DIFF [HEME] AM CMP [COMPREHENSIVE METABOLIC PN,CMP] [CHEM] AM MAGNESIUM [CHEM] AM 07/04/19 05:11 C-REACTIVE PROTEIN [CHEM] AM CBC WITH AUTO DIFF [HEME] AM CMP [COMPREHENSIVE METABOLIC PN,CMP] [CHEM] AM MAGNESIUM [CHEM] AM 07/05/19 05:11 C-REACTIVE PROTEIN [CHEM] AM CBC WITH AUTO DIFF [HEME] AM CMP [COMPREHENSIVE METABOLIC PN,CMP] [CHEM] AM MAGNESIUM [CHEM] AM - Plan Plan:: Assessment: Acute: UTI - Diagnosed on previous admission - 2/2 E. coli - IV Rocephin 1 gram daily Recurrent Fall - Again found on the bathroom by a neighbor this would be her a recurrent episode - She is likely non-complaint Hypomagnesemia - Mg 1.3; 1.1 on recent admission-->1.8 - Replete and monitor Hypokalemia - K of 2.9-->3.4 - Replete and monitor Renal Insufficiency - Cr of 1.3-->1.2 with BUN of 29-->28 - Likely from Pre-renal Azotemia - IV hydration and monitor output Transaminitis - AST of 135, ALT of 156 - Alk phos of 156 with Total Bilirubin of 1.3 - She likely has fatty liver disease (she is morbidly obese) - GGT to r/o biliary component - Avoid Tylenol for now - Liver U/S: Single Large gallstone within the gallbladder w/o gallbladder wall thickening or biliary duct dilatation - Hep C Abs negative Generalized Weakness - 2/2 Metabolic Derangement and Recent Fall - PT/OT eval - Vit D level normal Morbid Obesity - Dietary consult for weight management - BMI of 48 Failure to Thrive - Patient just recently discharged from the hospital - Has HHS but failed to take care herself - She has no family support locally - States her sister from [place] will be coming down to be with her but with unknown duration of stay - She needs 24hr care or NH placement Chronic: Impaired Vision, HTN, Asthma, OA/DJD, Stasis Dermatitis, Anxiety, Gait Instability S/p Fall and Morbid Obesity Plan: She is clinically stable Routine AM labs AHA diet Lipase and Ammonia level- both low levels Dietary consult for weight management DVT/GI Prophylaxis Fall Precautions PT/OT to assess and treat SW/CM for d/c planing Recommend NH placement Code status: full Additional orders as above
[2019-07-01] MEDS: Metoprolol Succinate 50 MG Tab.ER PO SCH (10:01)
[2019-07-01] MEDS: Enoxaparin 40 MG/0.4 ML Syringe SUBCUT SCH (10:01)
[2019-07-01] MEDS: Cholecalciferol (Vitamin D3) 25 MCG Tab PO SCH (10:02)
[2019-07-01] MEDS: Venlafaxine 75 MG Cap.ER PO SCH (10:02)
[2019-07-01] MEDS: Saccharomyces Boulardii (Probiotic) 250 MG Cap PO SCH (10:02)
[2019-07-01] MEDS: Cyanocobalamin (Vitamin B12) 1,000 MCG Tab PO SCH (10:02)
[2019-07-01] MEDS: Furosemide 20 MG Tab PO SCH (10:02)
[2019-07-01] MEDS: Magnesium Oxide 400 MG Tab PO SCH ×2 (10:03→20:55)
[2019-07-01] MEDS: Pantoprazole 40 MG Tab.CR PO SCH ×2 (10:03→15:55)
[2019-07-01] MEDS: Famotidine 20 MG Tab PO SCH (10:08)
--- NOTE | 2019-07-01 10:15 | US ---
Abdominal ultrasound: Multiple real-time images of the abdomen were obtained. Comparison: No prior abdominal imaging. Liver shows no focal parenchymal abnormality. Single large gallstone is noted within the gallbladder measuring 3.8 cm. No gallbladder wall thickening or biliary duct dilatation is seen. Kidneys show no hydronephrosis or mass. Right kidney has a length of 9.8 cm and left kidney has a length 10.6 cm. Spleen size is normal. Aorta shows no aneurysm. Portal vein shows normal hepatopedal flow. Inferior vena cava is patent. Visualized portions of the pancreas are unremarkable. Impression: 1. Single large gallstone within the gallbladder without gallbladder wall thickening or biliary duct dilatation. 2. No additional abnormality is identified on abdominal ultrasound exam. Diagnostic code #2
--- NOTE | 2019-07-01 13:42 | CT ---
Head CT Technique: Multiple axial sections through the brain were obtained. Intravenous contrast was not utilized. Comparison: Prior head CT exam of 06/25/19. Findings: Ventricles along with basal cisterns and sulci over the convexities are mildly prominent. No abnormal parenchymal densities are seen. No evidence of intracranial hemorrhage. No midline shift or mass effect is seen. Bone window settings were reviewed which show no acute calvarial abnormality. Visualized mastoid sinuses and paranasal sinuses show nothing acute. Impression: 1. Mild generalized atrophy. 2. No acute intracranial abnormality is appreciated. Diagnostic code #2 I agree with preliminary report from [facility], finalized on 06/30/19, 9:10 PM Central Time, code #2
[2019-07-01] MEDS: cefTRIAXone 1 GM in Sodium Chloride 0.9% 100 ML IV SCH (20:54)
[2019-07-01] MEDS ORDERED: Doxepin 10 MG Cap PO SCH (21:00)
[2019-07-01] MEDS ORDERED: Magnesium Sulfate/Water 2 GM in Premix Bag 1 BAG IV ONE (21:09)
[2019-07-01] MEDS: Ibuprofen 400 MG Tab PO PRN (23:56)
[2019-07-02] MEDS: Sodium Chloride 0.9% 1,000 ML IV SCH (00:27)
[2019-07-02] MEDS: Famotidine 20 MG Tab PO SCH (07:04)
[2019-07-02] MEDS: Trospium 20 MG Tab PO SCH ×2 (07:04→15:33)
[2019-07-02] MEDS: Pantoprazole 40 MG Tab.CR PO SCH ×2 (07:05→15:33)
--- NOTE | 2019-07-02 07:29 | PCM.PN ---
- General Info Date of Service: 07/02/19 Admission Dx/Problem (Free Text): Admission Diagnosis/Problem Admission Diagnosis/Problem UTI (urinary tract infection) due to urinary indwelling catheter Subjective Update: Follow up Functional Status: Reports: Pain Controlled, Tolerating Diet, Ambulating, Urinating. Denies: New Symptoms - Review of Systems General: Denies: Fever, Chills HEENT: Reports: No Symptoms Pulmonary: Denies: Shortness of Breath Cardiovascular: Reports: Edema. Denies: Chest Pain, Dyspnea on Exertion, Lightheadedness Gastrointestinal: Denies: Abdominal Pain, Decreased Appetite, Nausea, Vomiting Genitourinary: Reports: No Symptoms Musculoskeletal: Reports: No Symptoms Skin: Reports: No Symptoms Neurological: Reports: Difficulty Walking, Weakness, Gait Disturbance. Denies: Confusion Psychiatric: Denies: Depression, Mood Lability, Anxiety, Agitation, Cravings, Hallucinations Systems Review Comment:: No significant or overnight issues. No new complaints. - Patient Data Vitals - Most Recent: Last Vital Signs Temp 36.4 C 07/02/19 04:27 Pulse 59 L 07/02/19 04:27 Resp 16 07/02/19 04:27 BP 134/69 07/02/19 04:27 Pulse Ox 91 L 07/02/19 04:27 Weight - Most Recent: 113.942 kg I&O - Last 24 Hours: Intake & Output 07/01/19 07/02/19 07/02/19 22:59 06:59 14:59 Intake Total 1580 1050 Output Total 1400 500 Balance 180 550 Lab Results Last 24 Hours: Laboratory Results - last 24 hr 07/01/19 07/02/19 07/02/19 Range/Units 05:21 04:20 04:20 WBC 4.25 (3.98-10.04) K/mm3 RBC 3.96 L (3.98-5.22) M/mm3 Hgb 12.1 (11.2-15.7) gm/dl Hct 38.4 (34.1-44.9) % MCV 97.0 H (79.4-94.8) fl MCH 30.6 (25.6-32.2) pg MCHC 31.5 L (32.2-35.5) g/dl RDW Std Deviation 49.4 H (36.4-46.3) fL Plt Count 138 L (182-369) K/mm3 MPV 10.7 (9.4-12.3) fl Neut % (Auto) 56.0 (34.0-71.1) % Lymph % (Auto) 27.8 (19.3-51.7) % Falls % (Auto) 8.7 (4.7-12.5) % Eos % (Auto) 7.1 H (0.7-5.8) Baso % (Auto) 0.2 (0.1-1.2) % Neut # (Auto) 2.38 (1.56-6.13) K/mm3 Lymph # (Auto) 1.18 (1.18-3.74) K/mm3 Falls # (Auto) 0.37 H (0.24-0.36) K/mm3 Eos # (Auto) 0.30 (0.04-0.36) K/mm3 Baso # (Auto) 0.01 (0.01-0.08) K/mm3 Manual Slide Review Abnormal smear Sodium 137 (136-145) mEq/L Potassium 3.7 (3.5-5.1) mEq/L Chloride 102 (98-107) mEq/L Carbon Dioxide 28 (21-32) mEq/L Anion Gap 10.7 (5-15) BUN 29 H (7-18) mg/dL Creatinine 1.1 H (0.55-1.02) mg/dL Est Cr Clr Drug Dosing 39.76 mL/min Estimated GFR (MDRD) 48 (>60) mL/min BUN/Creatinine Ratio 26.4 H (14-18) Glucose 88 (83-115) mg/dL Calcium 8.6 (8.5-10.1) mg/dL Magnesium 1.9 (1.8-2.4) mg/dl Total Bilirubin 1.5 H (0.2-1.0) mg/dL AST 158 H (15-37) U/L ALT 125 H (14-59) U/L Alkaline Phosphatase 315 H (46-116) U/L C-Reactive Protein 18.4 H* (<1.0) mg/dL Total Protein 5.6 L (6.4-8.2) g/dl Albumin 2.7 L (3.4-5.0) g/dl Globulin 2.9 gm/dL Albumin/Globulin Ratio 0.9 L (1-2) Med Orders - Current: Current Medications Albuterol (Proventil Hfa) 0 gm INH Q4H PRN PRN Reason: Shortness of Breath Albuterol/Ipratropium (Duoneb 3.0-0.5 Mg/3 Ml) 3 ml NEB Q4H PRN PRN Reason: Shortness Of Breath/wheezing Bisacodyl (Dulcolax) 5 mg PO DAILY PRN PRN Reason: Constipation Cholecalciferol (Vitamin D3) 50 mcg PO DAILY [facility] Last Admin: 07/01/19 10:02 Dose: 50 mcg Cyanocobalamin (Vitamin B12) 500 mcg PO DAILY [facility] Last Admin: 07/01/19 10:02 Dose: 500 mcg Docusate Sodium (Colace) 100 mg PO BID PRN PRN Reason: Constipation Doxepin HCl (Sinequan) 10 mg PO BEDTIME [facility] Last Admin: 07/01/19 20:57 Dose: Not Given Enoxaparin Sodium (Lovenox) 40 mg SUBCUT DAILY [facility] Last Admin: 07/01/19 10:01 Dose: 40 mg Famotidine (Pepcid) 10 mg PO ACBREAKFAST [facility] Last Admin: 07/02/19 07:04 Dose: 10 mg Furosemide (Lasix) 20 mg PO DAILY [facility] Last Admin: 07/01/19 10:02 Dose: 20 mg Hydromorphone HCl (Dilaudid) 0.25 mg IVPUSH Q2H PRN PRN Reason: Pain (severe 7-10) Ceftriaxone Sodium 1 gm/ (Sodium Chloride) 100 mls @ 200 mls/hr IV Q24H [facility] Last Admin: 07/01/19 20:54 Dose: 200 mls/hr Promethazine HCl 6.25 mg/ (Sodium Chloride) 50.25 mls @ 100 mls/hr IV Q6H PRN PRN Reason: Nausea/Vomiting Sodium Chloride (Normal Saline) 1,000 mls @ 25 mls/hr IV ASDIRECTED [facility] Last Admin: 07/02/19 00:27 Dose: 25 mls/hr Ibuprofen (Motrin) 400 mg PO Q6H PRN PRN Reason: fever/pain Last Admin: 07/01/19 23:56 Dose: 400 mg Magnesium Oxide (Magnesium Oxide) 400 mg PO BID [facility] Last Admin: 07/01/19 20:55 Dose: 400 mg Metoprolol Succinate (Toprol Xl) 50 mg PO DAILY [facility] Last Admin: 07/01/19 10:01 Dose: 50 mg Ondansetron HCl (Zofran) 4 mg IV Q6H PRN PRN Reason: Nausea/Vomiting Pantoprazole Sodium (Protonix) 40 mg PO BID@0700,1600 [facility] Last Admin: 07/02/19 07:05 Dose: 40 mg Saccharomyces Boulardii (Florastor) 250 mg PO DAILY [facility] Last Admin: 07/01/19 10:02 Dose: 250 mg Senna/Docusate Sodium (Senna Plus) 1 tab PO BID PRN PRN Reason: Constipation Temazepam (Restoril) 7.5 mg PO BEDTIME PRN PRN Reason: Sleep Trospium (Sanctura) 20 mg PO BIDAC [facility] Last Admin: 07/02/19 07:04 Dose: 20 mg Venlafaxine HCl (Effexor Xr) 150 mg PO DAILY [facility] Last Admin: 07/01/19 10:02 Dose: 150 mg Discontinued Medications Acetaminophen (Tylenol) 650 mg PO Q4H PRN PRN Reason: Pain (Mild 1-3)/fever Acetaminophen/Butalbital/Caffeine (Fioricet 325-50-40 Mg) 1 tab PO Q6H PRN PRN Reason: Headache Last Admin: 07/01/19 10:01 Dose: 1 tab Hydrocodone Bitart/Acetaminophen ([place] 325-5 Mg) 1 tab PO Q4H PRN PRN Reason: Pain (moderate 4-6) Magnesium Sulfate 2 gm/ Premix 50 mls @ 50 mls/hr IV ONETIME ONE Stop: 06/30/19 21:35 Last Admin: 06/30/19 21:55 Dose: 50 mls/hr Ceftriaxone Sodium 1 gm/ (Sodium Chloride) 100 mls @ 200 mls/hr IV ONETIME STA Stop: 06/30/19 21:36 Last Admin: 06/30/19 21:23 Dose: 200 mls/hr Sodium Chloride (Normal Saline) 1,000 mls @ 150 mls/hr IV ASDIRECTED [facility] Last Infusion: 07/01/19 14:00 Dose: Infused Magnesium Sulfate 2 gm/ Premix 50 mls @ 25 mls/hr IV ONETIME ONE Stop: 07/01/19 00:51 Last Admin: 07/01/19 00:08 Dose: 25 mls/hr Potassium Chloride 10 meq/ (Premix) 100 mls @ 100 mls/hr IV Q1H [facility] Stop: 07/01/19 05:29 Last Admin: 07/01/19 05:45 Dose: 100 mls/hr Sodium Chloride (Normal Saline) 1,000 mls @ 50 mls/hr IV ASDIRECTED [facility] Magnesium Sulfate 2 gm/ Premix 50 mls @ 25 mls/hr IV ONETIME ONE Stop: 07/01/19 23:08 Last Admin: 07/01/19 21:52 Dose: 25 mls/hr Potassium Chloride (Klor-Con 10) 60 meq PO ONETIME ONE Stop: 06/30/19 23:02 Last Admin: 07/01/19 00:08 Dose: 60 meq Potassium Chloride (Klor-Con M20) 60 meq PO ONETIME ONE Stop: 07/01/19 07:15 Last Admin: 07/01/19 10:50 Dose: Not Given Potassium Chloride (Klor-Con M20) 60 meq PO ONETIME ONE Stop: 07/01/19 10:16 Last Admin: 07/01/19 11:06 Dose: 60 meq - Exam General: Alert, Oriented, Cooperative, No Acute Distress HEENT: Pupils Equal, Pupils Reactive, EOMI, Mucous Membr. Moist/[place] Neck: Supple Lungs: Clear to Auscultation, Normal Respiratory Effort Cardiovascular: Regular Rate, Regular Rhythm, Murmurs GI/Abdominal Exam: Normal Bowel Sounds, Soft, Non-Tender, No Organomegaly, No Distention, No Abnormal Bruit (Female) Exam: Deferred Back Exam: Normal Inspection, Decreased Range of Motion Extremities: Normal Range of Motion, Non-Tender, Normal Capillary Refill, Pedal Edema, Redness, Other (skin discoloration on b/l lower extremities ). No: Normal Inspection, Leg Pain Skin: Warm, Dry, Intact Neurological: No New Focal Deficit (limited but grossly intact ). No: Normal Gait Psy/Mental Status: Alert, Normal Affect, Normal Mood - Problem List Review Problem List Initiated/Reviewed/Updated: Yes - My Orders Last 24 Hours: My Active Orders 07/01/19 07:00 Pantoprazole [ProTONIX] 40 mg PO BID@0700,1600 07/01/19 09:00 Cholecalciferol (Vitamin D3) [Vitamin D3] 50 mcg PO DAILY Cyanocobalamin (Vitamin B12) [Vitamin B12] 500 mcg PO DAILY Enoxaparin [Lovenox] 40 mg SUBCUT DAILY Furosemide [Lasix] 20 mg PO DAILY Magnesium Oxide 400 mg PO BID Metoprolol Succinate [Toprol XL] 50 mg PO DAILY Saccharomyces Boulardii [Florastor] 250 mg PO DAILY Venlafaxine [Effexor XR] 150 mg PO DAILY 07/01/19 15:00 Sodium Chloride 0.9% [Normal Saline] 1,000 ml IV ASDIRECTED 07/01/19 21:00 Doxepin [SINEquan] 10 mg PO BEDTIME cefTRIAXone [Rocephin] 1 gm Sodium Chloride 0.9% [Normal Saline] 100 ml IV Q24H 07/02/19 06:00 Trospium [Sanctura] 20 mg PO BIDAC 07/03/19 05:11 C-REACTIVE PROTEIN [CHEM] AM CBC WITH AUTO DIFF [HEME] AM CMP [COMPREHENSIVE METABOLIC PN,CMP] [CHEM] AM MAGNESIUM [CHEM] AM 07/04/19 05:11 C-REACTIVE PROTEIN [CHEM] AM CBC WITH AUTO DIFF [HEME] AM CMP [COMPREHENSIVE METABOLIC PN,CMP] [CHEM] AM MAGNESIUM [CHEM] AM 07/05/19 05:11 C-REACTIVE PROTEIN [CHEM] AM CBC WITH AUTO DIFF [HEME] AM CMP [COMPREHENSIVE METABOLIC PN,CMP] [CHEM] AM MAGNESIUM [CHEM] AM - Plan Plan:: Assessment: Acute: UTI - Diagnosed on previous admission - 2/2 E. coli - IV Rocephin 1 gram daily Recurrent Fall - Again found on the bathroom by a neighbor this would be her a recurrent episode - She is likely non-complaint Renal Insufficiency - Cr of 1.3-->1.2-->1.1 with BUN of 29-->28-->29 - Likely from Pre-renal Azotemia - IV hydration and monitor output Transaminitis with Hyperbilirubinemia - AST of 135, ALT of 156 - Alk phos of 156 with Total Bilirubin of 1.3-->1.5 - She likely has fatty liver disease (she is morbidly obese) - GGT to r/o biliary component - Avoid Tylenol for now - Liver U/S: Single Large gallstone within the gallbladder w/o gallbladder wall thickening or biliary duct dilatation - Hep C Abs negative - Consult Dr. Hdz for further evaluation Generalized Weakness - 2/2 Metabolic Derangement and Recent Fall - Continue PT/OT treatment - Vit D level normal Morbid Obesity - Dietary consult for weight management - BMI of 48 Failure to Thrive - Patient just recently discharged from the hospital - Has HHS but failed to take care herself - She has no family support locally - States her sister from [place] will be coming down to be with her but with unknown duration of stay - She needs 24hr care or NH placement Single Large gallstone within the gallbladder w/o gallbladder wall thickening or biliary duct dilatation - Asymptomatic - She is drinking and eating well - Consulted General Surgery Query Early Dementia - PROFESSOR OF BIOSTATISTICS for cognitive evaluation in AM Resolved: S/p Hypomagnesemia - Mg 1.3; 1.1 on recent admission-->1.8-->1.9 - Replete and monitor S/p Hypokalemia - K of 2.9-->3.4-->3.7 - Replete and monitor Chronic: Impaired Vision, HTN, Asthma, OA/DJD, Stasis Dermatitis, Anxiety, Gait Instability S/p Fall and Morbid Obesity Plan: She remains clinically stable Routine AM labs AHA diet Dietary consult for weight management DVT/GI Prophylaxis Fall Precautions PT/OT to assess and treat; they recommend SNF with PT/OT SW/CM for d/c planing Recommend NH placement Code status: full Additional orders as above Patient absolutely refused SNF/NH. Consider AFL as she does not really have anyone at home except [facility]. CM/SM to speak with her and go over benefits of SKILLED NURSING placement.
[2019-07-02] MEDS: Enoxaparin 40 MG/0.4 ML Syringe SUBCUT SCH (08:41)
[2019-07-02] MEDS: Cyanocobalamin (Vitamin B12) 1,000 MCG Tab PO SCH (08:44)
[2019-07-02] MEDS: Cholecalciferol (Vitamin D3) 25 MCG Tab PO SCH (08:45)
[2019-07-02] MEDS: Venlafaxine 75 MG Cap.ER PO SCH (08:46)
[2019-07-02] MEDS: Furosemide 20 MG Tab PO SCH (08:46)
[2019-07-02] MEDS: Saccharomyces Boulardii (Probiotic) 250 MG Cap PO SCH (08:46)
[2019-07-02] MEDS: Magnesium Oxide 400 MG Tab PO SCH ×2 (08:46→21:12)
[2019-07-02] MEDS: Metoprolol Succinate 50 MG Tab.ER PO SCH (08:52)
[2019-07-02] MEDS ORDERED: Non-Formulary Medication 1 Each (Fesoterodine Fumarate [Toviaz] 8 MG) PO SCH (09:00)
--- NOTE | 2019-07-02 14:47 | PCM.CONS ---
H&P History of Present Illness - General Date of Service: 07/02/19 Admit Problem/Dx: Admission Diagnosis/Problem Admission Diagnosis/Problem UTI (urinary tract infection) due to urinary indwelling catheter Source of Information: Patient History Limitations: Reports: No Limitations - History of Present Illness Initial Comments - Free Text/Narative: The patient presented 06/30 after a fall. Labs revealed elevated LFTs including AST/ALT in 300s/100s, ALP in the 200-300s, GGT 80s. Hep C serotolgy was negative. RUQ US revealed normal liver but 3.8cm gallstone without any gallbladder or CBD abnormalities. I am asked to evaluate the patient for cholelithiasis. The patient reports that she has low appetite, chronic intermittent nausea unrelated to food as well as chronic constipation. She denies any abdominal pain related to eating, no nausea or vomiting related to food. She has no right sided abdominal pain or epigastric pain. She reports that she had a hiatal hernia that at times causes reflux. She did reports intermittent chills at home and generalized weakness leading to a fall. Onset of Symptoms: Reports: Gradual (Low appetite and weakness) Duration of Symptoms: Reports: Week(s): Location: Reports: Generalized Anterior Headache Pain Score (Numeric/FACES): 10 - Related Data Allergies/Adverse Reactions: Allergies Allergy/AdvReac Type Severity Reaction Status Date / Time No Known Allergies Allergy Verified 07/01/19 03:56 Home Medications: Home Meds Doxepin [SINEquan] 10 mg PO BEDTIME 12/07/17 [History] Furosemide [Lasix] 20 mg PO DAILY 12/07/17 [History] Levalbuterol Tartrate [Xopenex HFA] 2 puff INH Q6H PRN 12/07/17 [History] Metoprolol Succinate [Toprol XL 100mg] 50 mg PO DAILY 12/07/17 [History] Venlafaxine HCl [Venlafaxine ER] 150 mg PO DAILY 12/07/17 [History] Cyanocobalamin (Vitamin B-12) [Vitamin B-12] 500 mcg PO DAILY 06/26/19 [History] Famotidine [Pepcid AC] 10 mg PO ACBREAKFAST 06/26/19 [History] Magnesium Oxide 400 mg PO BID #10 tablet 06/28/19 [Rx] Nitrofurantoin Monohyd/M-Cryst [Macrobid 100 mg Capsule] 100 mg PO BID #8 capsule 06/28/19 [Rx] Saccharomyces Boulardii [Florastor] 250 mg PO DAILY #8 capsule 06/28/19 [Rx] Cholecalciferol (Vitamin D3) [Vitamin D3] 2,000 unit PO DAILY 06/30/19 [History] Fesoterodine Fumarate [Toviaz] 8 mg PO DAILY 07/01/19 [History] Levalbuterol Tartrate [Xopenex Hfa] 2 puff INH Q4HR PRN 07/01/19 [History] Past Medical History HEENT History: Reports: Impaired Vision Other HEENT History: Wears glasses Cardiovascular History: Reports: Hypertension Respiratory History: Reports: Asthma Gastrointestinal History: Reports: Chronic Constipation Genitourinary History: Reports: Urinary Incontinence 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: Reports: Endometriosis Musculoskeletal History: Reports: Osteoarthritis Neurological History: Reports: Other (See Below) (Gait instability) Psychiatric History: Reports: Anxiety Endocrine/Metabolic History: Reports: Obesity/BMI 30+ Immunologic History: Reports: None Oncologic (Cancer) History: Reports: None Dermatologic History: Reports: Other (See Below) (Basis dermatitis bilateral lower extremity) Other Dermatologic History: sentitive skin, "break out easy" - Past Surgical History HEENT Surgical History: Reports: Tonsillectomy GI Surgical History: Reports: Colonoscopy, EGD Female Surgical History: Reports: Hysterectomy (complete) Social & Family History - Family History Family Medical History: Noncontributory - Tobacco Use Smoking Status *Q: Former Smoker Used Tobacco, but Quit: Yes Month/Year Tobacco Last Used: Quit 1999 Second Hand Smoke Exposure: No - Caffeine Use Caffeine Use: Reports: Coffee, Soda Other Caffeine Use: some days 1-2 cups of coffee other days 3-4. - Recreational Drug Use Recreational Drug Use: No - Living Situation & Occupation Living situation: Reports: , Alone (in an apartment) Occupation: Retired H&P Review of Systems - Review of Systems: Review Of Systems: See Below General: Reports: Chills, Malaise, Weakness, Decreased Appetite, Weight Loss HEENT: Reports: Dysphasia (intermittent difficulty swallowing) Pulmonary: Reports: No Symptoms Cardiovascular: Reports: No Symptoms Gastrointestinal: Reports: Difficulty Swallowing Genitourinary: Reports: Dysuria Musculoskeletal: Reports: Joint Pain (knees bilaterally) Skin: Reports: No Symptoms Exam - Exam Exam: See Below - Vital Signs Vital Signs: Last Vital Signs Temp 97.7 F 07/02/19 08:51 Pulse 60 07/02/19 08:52 Resp 18 07/02/19 08:49 BP 125/96 H 07/02/19 08:52 Pulse Ox 93 L 07/02/19 08:51 Weight: 113.942 kg - Exam Quality Assessment: Supplemental Oxygen General: Alert, Oriented, Cooperative, Mild Distress HEENT: Conjunctiva Clear Neck: Supple, Full Range of Motion, Other (mild tenderness to palpation posterior neck) Lungs: Clear to Auscultation, Normal Respiratory Effort Cardiovascular: Regular Rate, Regular Rhythm GI/Abdominal Exam: Soft, Non-Tender, No Organomegaly, No Distention, Other ( prominent truncal obesity) - Patient Data Lab Results Last 24 hrs: Laboratory Results - last 24 hr 07/02/19 07/02/19 Range/Units 04:20 04:20 WBC 4.25 (3.98-10.04) K/mm3 RBC 3.96 L (3.98-5.22) M/mm3 Hgb 12.1 (11.2-15.7) gm/dl Hct 38.4 (34.1-44.9) % MCV 97.0 H (79.4-94.8) fl MCH 30.6 (25.6-32.2) pg MCHC 31.5 L (32.2-35.5) g/dl RDW Std Deviation 49.4 H (36.4-46.3) fL Plt Count 138 L (182-369) K/mm3 MPV 10.7 (9.4-12.3) fl Neut % (Auto) 56.0 (34.0-71.1) % Lymph % (Auto) 27.8 (19.3-51.7) % [place] % (Auto) 8.7 (4.7-12.5) % Eos % (Auto) 7.1 H (0.7-5.8) Baso % (Auto) 0.2 (0.1-1.2) % Neut # (Auto) 2.38 (1.56-6.13) K/mm3 Lymph # (Auto) 1.18 (1.18-3.74) K/mm3 [place] # (Auto) 0.37 H (0.24-0.36) K/mm3 Eos # (Auto) 0.30 (0.04-0.36) K/mm3 Baso # (Auto) 0.01 (0.01-0.08) K/mm3 Sodium 137 (136-145) mEq/L Potassium 3.7 (3.5-5.1) mEq/L Chloride 102 (98-107) mEq/L Carbon Dioxide 28 (21-32) mEq/L Anion Gap 10.7 (5-15) BUN 29 H (7-18) mg/dL Creatinine 1.1 H (0.55-1.02) mg/dL Est Cr Clr Drug Dosing 39.76 mL/min Estimated GFR (MDRD) 48 (>60) mL/min BUN/Creatinine Ratio 26.4 H (14-18) Glucose 88 (83-115) mg/dL Calcium 8.6 (8.5-10.1) mg/dL Magnesium 1.9 (1.8-2.4) mg/dl Total Bilirubin 1.5 H (0.2-1.0) mg/dL AST 158 H (15-37) U/L ALT 125 H (14-59) U/L Alkaline Phosphatase 315 H (46-116) U/L C-Reactive Protein 18.4 H* (<1.0) mg/dL Total Protein 5.6 L (6.4-8.2) g/dl Albumin 2.7 L (3.4-5.0) g/dl Globulin 2.9 gm/dL Albumin/Globulin Ratio 0.9 L (1-2) Result Diagrams: 07/02/19 04:20 07/02/19 04:20 Consult PN Assessment/Plan Procedures: Procedures ASSAY OF CK (CPK) (06/25/19) ASSAY OF MAGNESIUM (06/25/19) ASSAY OF NATRIURETIC PEPTIDE (12/07/17) ASSAY OF TROPONIN QUANT (12/07/17) ASSAY THYROID STIM HORMONE (04/10/19) BLOOD CULTURE FOR BACTERIA (06/25/19) C-REACTIVE PROTEIN (06/25/19) COMPLETE CBC AUTOMATED (06/08/17) COMPLETE CBC W/AUTO DIFF WBC (06/25/19) COMPREHEN METABOLIC PANEL (04/10/19) CREATINE MB FRACTION (12/07/17) ELECTROCARDIOGRAM TRACING (12/07/17) EMERGENCY DEPT VISIT (03/01/19) EMERGENCY DEPT VISIT (12/19/17) EMERGENCY DEPT VISIT (12/07/17) GAIT TRAINING THERAPY (06/25/19) LIPID PANEL (04/10/19) MEASURE BLOOD OXYGEN LEVEL (06/25/19) METABOLIC PANEL TOTAL CA (06/25/19) OFFICE/OUTPATIENT VISIT EST (04/10/19) OT EVAL MOD COMPLEX 45 MIN (06/25/19) PT EVAL MOD COMPLEX 30 MIN (06/25/19) ROUTINE VENIPUNCTURE (06/25/19) SELF CARE MNGMENT TRAINING (06/25/19) THER/PROPH/DIAG INJ SC/IM (12/19/17) THERAPEUTIC ACTIVITIES (06/25/19) THERAPEUTIC EXERCISES (06/25/19) VITAMIN D 25 HYDROXY (06/25/19) X-RAY EXAM CHEST 1 VIEW (12/07/17) Problem List Initiated/Reviewed/Updated: No Plan: Ms. Seo has elevated LFTs and cholelithiasis without evidence of any obstructive symptoms. At this point is appears that her gallstone is asymptomatic and no surgical intervention is warranted. However, I would recommend a HIDA scan to rule out chronic cholecystitis. I would also recommend obtaining INR to check for intrinsic liver function problem. For her ongoing weakness and low appetite, I would recommend obtaining TSH, T3 and T4 to check for thyroid hormone deficiency if they have not been obtained recently.
[2019-07-02] MEDS: cefTRIAXone 1 GM in Sodium Chloride 0.9% 100 ML IV SCH (21:12)
[2019-07-02] MEDS: Temazepam 7.5 MG Cap PO PRN (22:51)
[2019-07-02] MEDS: Ibuprofen 400 MG Tab PO PRN (22:51)
[2019-07-03] MEDS: Trospium 20 MG Tab PO SCH ×2 (06:37→16:43)
[2019-07-03] MEDS: Famotidine 20 MG Tab PO SCH (06:37)
[2019-07-03] MEDS: Ibuprofen 400 MG Tab PO PRN ×2 (06:38→16:44)
[2019-07-03] MEDS: Pantoprazole 40 MG Tab.CR PO SCH (06:38)
--- NOTE | 2019-07-03 07:30 | PCM.PN ---
- General Info Date of Service: 07/03/19 Admission Dx/Problem (Free Text): Admission Diagnosis/Problem Admission Diagnosis/Problem UTI (urinary tract infection) due to urinary indwelling catheter Subjective Update: Follow up Functional Status: Reports: Pain Controlled, Tolerating Diet, Ambulating, Urinating - Review of Systems General: Denies: Fever, Fatigue, Malaise, Chills HEENT: Reports: No Symptoms Pulmonary: Denies: Shortness of Breath Cardiovascular: Denies: Chest Pain, Dyspnea on Exertion, Lightheadedness Gastrointestinal: Denies: Abdominal Pain, Nausea, Vomiting Genitourinary: Reports: No Symptoms Musculoskeletal: Reports: No Symptoms Skin: Reports: No Symptoms Neurological: Reports: Gait Disturbance. Denies: Confusion, Weakness Psychiatric: Denies: Depression, Mood Lability, Anxiety, Agitation, Hallucinations Systems Review Comment:: No overnight or acute issues. - Patient Data Vitals - Most Recent: Last Vital Signs Temp 36.7 C 07/03/19 04:23 Pulse 61 07/03/19 04:23 Resp 20 07/03/19 04:23 BP 153/99 H 07/03/19 04:23 Pulse Ox 93 L 07/03/19 04:23 Weight - Most Recent: 113.217 kg I&O - Last 24 Hours: Intake & Output 07/02/19 07/03/19 07/03/19 22:59 06:59 14:59 Intake Total 1100 1272 Output Total 750 1500 Balance 350 -228 Med Orders - Current: Current Medications Albuterol (Proventil Hfa) 0 gm INH Q4H PRN PRN Reason: Shortness of Breath Albuterol/Ipratropium (Duoneb 3.0-0.5 Mg/3 Ml) 3 ml NEB Q4H PRN PRN Reason: Shortness Of Breath/wheezing Bisacodyl (Dulcolax) 5 mg PO DAILY PRN PRN Reason: Constipation Cholecalciferol (Vitamin D3) 50 mcg PO DAILY [facility] Last Admin: 07/02/19 08:45 Dose: 50 mcg Cyanocobalamin (Vitamin B12) 500 mcg PO DAILY [facility] Last Admin: 07/02/19 08:44 Dose: 500 mcg Docusate Sodium (Colace) 100 mg PO BID PRN PRN Reason: Constipation Enoxaparin Sodium (Lovenox) 40 mg SUBCUT DAILY [facility] Last Admin: 07/02/19 08:41 Dose: 40 mg Famotidine (Pepcid) 10 mg PO ACBREAKFAST [facility] Last Admin: 07/03/19 06:37 Dose: 10 mg Furosemide (Lasix) 20 mg PO DAILY [facility] Last Admin: 07/02/19 08:46 Dose: 20 mg Hydromorphone HCl (Dilaudid) 0.25 mg IVPUSH Q2H PRN PRN Reason: Pain (severe 7-10) Ceftriaxone Sodium 1 gm/ (Sodium Chloride) 100 mls @ 200 mls/hr IV Q24H [facility] Last Admin: 07/02/19 21:12 Dose: 200 mls/hr Promethazine HCl 6.25 mg/ (Sodium Chloride) 50.25 mls @ 100 mls/hr IV Q6H PRN PRN Reason: Nausea/Vomiting Sodium Chloride (Normal Saline) 1,000 mls @ 25 mls/hr IV ASDIRECTED [facility] Last Admin: 07/02/19 00:27 Dose: 25 mls/hr Ibuprofen (Motrin) 400 mg PO Q6H PRN PRN Reason: fever/pain Last Admin: 07/03/19 06:38 Dose: 400 mg Magnesium Oxide (Magnesium Oxide) 400 mg PO BID [facility] Last Admin: 07/02/19 21:12 Dose: 400 mg Metoprolol Succinate (Toprol Xl) 50 mg PO DAILY [facility] Last Admin: 07/02/19 08:52 Dose: 50 mg Ondansetron HCl (Zofran) 4 mg IV Q6H PRN PRN Reason: Nausea/Vomiting Pantoprazole Sodium (Protonix) 40 mg PO BID@0700,1600 [facility] Last Admin: 07/03/19 06:38 Dose: 40 mg Saccharomyces Boulardii (Florastor) 250 mg PO DAILY [facility] Last Admin: 07/02/19 08:46 Dose: 250 mg Senna/Docusate Sodium (Senna Plus) 1 tab PO BID PRN PRN Reason: Constipation Last Admin: 07/03/19 06:39 Dose: 1 tab Temazepam (Restoril) 7.5 mg PO BEDTIME PRN PRN Reason: Sleep Last Admin: 07/02/19 22:51 Dose: 7.5 mg Trospium (Sanctura) [facility] Last Admin: 07/03/19 06:37 Dose: 20 mg Venlafaxine HCl (Effexor Xr) 150 mg PO DAILY [facility] Last Admin: 07/02/19 08:46 Dose: 150 mg Discontinued Medications Acetaminophen (Tylenol) 650 mg PO Q4H PRN PRN Reason: Pain (Mild 1-3)/fever Acetaminophen/Butalbital/Caffeine (Fioricet 325-50-40 Mg) 1 tab PO Q6H PRN PRN Reason: Headache Last Admin: 07/01/19 10:01 Dose: 1 tab Hydrocodone Bitart/Acetaminophen ([place] 325-5 Mg) 1 tab PO Q4H PRN PRN Reason: Pain (moderate 4-6) Doxepin HCl (Sinequan) 10 mg PO BEDTIME [facility] Last Admin: 07/01/19 20:57 Dose: Not Given Magnesium Sulfate 2 gm/ Premix 50 mls @ 50 mls/hr IV ONETIME ONE Stop: 06/30/19 21:35 Last Admin: 06/30/19 21:55 Dose: 50 mls/hr Ceftriaxone Sodium 1 gm/ (Sodium Chloride) 100 mls @ 200 mls/hr IV ONETIME [facility] Stop: 06/30/19 21:36 Last Admin: 06/30/19 21:23 Dose: 200 mls/hr Sodium Chloride (Normal Saline) 1,000 mls @ 150 mls/hr IV ASDIRECTED [facility] Last Infusion: 07/01/19 14:00 Dose: Infused Magnesium Sulfate 2 gm/ Premix 50 mls @ 25 mls/hr IV ONETIME ONE Stop: 07/01/19 00:51 Last Admin: 07/01/19 00:08 Dose: 25 mls/hr Potassium Chloride 10 meq/ (Premix) 100 mls @ 100 mls/hr IV Q1H [facility] Stop: 07/01/19 05:29 Last Admin: 07/01/19 05:45 Dose: 100 mls/hr Sodium Chloride (Normal Saline) 1,000 mls @ 50 mls/hr IV ASDIRECTED [facility] Magnesium Sulfate 2 gm/ Premix 50 mls @ 25 mls/hr IV ONETIME ONE Stop: 07/01/19 23:08 Last Admin: 07/01/19 21:52 Dose: 25 mls/hr Potassium Chloride (Klor-Con 10) 60 meq PO ONETIME ONE Stop: 06/30/19 23:02 Last Admin: 07/01/19 00:08 Dose: 60 meq Potassium Chloride (Klor-Con M20) 60 meq PO ONETIME ONE Stop: 07/01/19 07:15 Last Admin: 07/01/19 10:50 Dose: Not Given Potassium Chloride (Klor-Con M20) 60 meq PO ONETIME ONE Stop: 07/01/19 10:16 Last Admin: 07/01/19 11:06 Dose: 60 meq - Exam General: Alert, Oriented, Cooperative, No Acute Distress HEENT: Pupils Equal, Pupils Reactive, EOMI, Mucous Membr. Moist/[place] Neck: Supple Lungs: Clear to Auscultation, Normal Respiratory Effort Cardiovascular: Regular Rate, Regular Rhythm GI/Abdominal Exam: Normal Bowel Sounds, Soft, Non-Tender, No Organomegaly, No Distention, No Abnormal Bruit, No Mass (Female) Exam: Deferred Back Exam: Normal Inspection, Decreased Range of Motion Extremities: Pedal Edema, Limited Range of Motion, Redness (on bilateral ahn), Other (erythema on b/l lower extremities). No: Normal Capillary Refill, Leg Pain Peripheral Pulses: 2+: Posterior Tibial (L), Posterior Tibial (R), Dorsalis Pedis (L), Dorsalis Pedis (R) Skin: Warm, Dry, Intact Neurological: No New Focal Deficit Psy/Mental Status: Alert, Normal Affect, Normal Mood - Problem List Review Problem List Initiated/Reviewed/Updated: Yes - My Orders Last 24 Hours: My Active Orders 07/02/19 10:51 Consult to Physician [CONS] Routine 07/02/19 10:53 Notify Provider Consults [RC] ASDIRECTED 07/03/19 05:11 C-REACTIVE PROTEIN [CHEM] AM CBC WITH AUTO DIFF [HEME] AM CMP [COMPREHENSIVE METABOLIC PN,CMP] [CHEM] AM MAGNESIUM [CHEM] AM 07/03/19 08:00 Consult to Speech Language Pathology [CONFIGURATION ENGINEER Evaluation and Treatment] [CONS] Routine 07/04/19 05:11 C-REACTIVE PROTEIN [CHEM] AM CBC WITH AUTO DIFF [HEME] AM CMP [COMPREHENSIVE METABOLIC PN,CMP] [CHEM] AM MAGNESIUM [CHEM] AM 07/05/19 05:11 C-REACTIVE PROTEIN [CHEM] AM CBC WITH AUTO DIFF [HEME] AM CMP [COMPREHENSIVE METABOLIC PN,CMP] [CHEM] AM MAGNESIUM [CHEM] AM - Plan Plan:: Assessment: Acute: UTI - Diagnosed on previous admission - 2/2 E. coli - IV Rocephin 1 gram daily--> pharmacy to switch to oral antibiotic - CRP is 16.2-->18.4--> 11.5 Recurrent Fall - Again found on the bathroom by a neighbor this would be her a recurrent episode - She is likely non-complaint Renal Insufficiency, At baseline - Cr of 1.3-->1.2-->1.1-->1.1 with BUN of 29-->28-->29-->31 - Likely from Pre-renal Azotemia - IV hydration and monitor output Transaminitis with Hyperbilirubinemia, Improving - AST of 135-->77, ALT of 156-->83 - Alk phos of 156-->394 with Total Bilirubin of 1.3-->1.5-->0.9 - She likely has fatty liver disease (she is morbidly obese) - GGT to r/o biliary component - Avoid Tylenol for now - Liver U/S: Single Large gallstone within the gallbladder w/o gallbladder wall thickening or biliary duct dilatation - Hep C Abs negative - Consult Dr. Hdz for further evaluation: recommends conservative for now with HIDA scan Generalized Weakness - 2/2 Metabolic Derangement and Recent Fall - Continue PT/OT treatment - Vit D level normal Morbid Obesity - Dietary consult for weight management - BMI of 48 Failure to Thrive - Patient just recently discharged from the hospital - Has HHS but failed to take care herself - She has no family support locally - States her sister from [place] will be coming down to be with her but with unknown duration of stay - She needs 24hr care or NH placement Single Large gallstone within the gallbladder w/o gallbladder wall thickening or biliary duct dilatation - Asymptomatic - She is drinking and eating well - Consulted General Surgery Moderate Cognitive Impairment - CONFIGURATION ENGINEER for cognitive evaluation in AM - "Recommend CONFIGURATION ENGINEER Tx at next level of care, preferably an [facility] or SNF. If patient insists on remaining in her current living situation with HH, recommend referral to OT for cognitive compensatory strategies" Resolved: S/p Hypomagnesemia - Mg 1.3; 1.1 on recent admission-->1.8-->1.9 - Replete and monitor S/p Hypokalemia - K of 2.9-->3.4-->3.7 - Replete and monitor Chronic: Impaired Vision, HTN, Asthma, OA/DJD, Stasis Dermatitis, Anxiety, Gait Instability S/p Fall and Morbid Obesity Plan: She remains clinically stable Routine AM labs AHA diet HIDA scan in AM DVT/GI Prophylaxis Fall Precautions PT/OT to assess and treat; they recommend SNF with PT/OT SW/CM for d/c planing Recommend NH placement Code status: full Additional orders as above LOS anticipate > 96hrs due to slow response to treatment
[2019-07-03] MEDS: Cyanocobalamin (Vitamin B12) 1,000 MCG Tab PO SCH (09:58)
[2019-07-03] MEDS: Furosemide 20 MG Tab PO SCH (09:58)
[2019-07-03] MEDS: Metoprolol Succinate 50 MG Tab.ER PO SCH (09:58)
[2019-07-03] MEDS: Cholecalciferol (Vitamin D3) 25 MCG Tab PO SCH (09:59)
[2019-07-03] MEDS: Saccharomyces Boulardii (Probiotic) 250 MG Cap PO SCH (09:59)
[2019-07-03] MEDS: Enoxaparin 40 MG/0.4 ML Syringe SUBCUT SCH (09:59)
[2019-07-03] MEDS: Magnesium Oxide 400 MG Tab PO SCH ×2 (09:59→20:16)
[2019-07-03] MEDS: Venlafaxine 75 MG Cap.ER PO SCH (09:59)
[2019-07-03] MEDS: Sodium Chloride 0.9% 1,000 ML IV SCH (16:43)
[2019-07-03] MEDS ORDERED: Magnesium Sulfate/Water 2 GM in Premix Bag 1 BAG IV ONE (20:06)
[2019-07-03] MEDS: Cephalexin 500 MG Cap PO SCH (20:16)
[2019-07-03] MEDS: Temazepam 7.5 MG Cap PO PRN (20:16)
[2019-07-04] MEDS: Bisacodyl 5 MG Tab PO PRN (05:02)
[2019-07-04] MEDS: Docusate Sodium 100 MG Cap PO PRN (05:02)
[2019-07-04] MEDS: Trospium 20 MG Tab PO SCH ×2 (05:02→16:34)
[2019-07-04] MEDS: Famotidine 20 MG Tab PO SCH (05:02)
--- NOTE | 2019-07-04 07:49 | PCM.PN ---
- General Info Date of Service: 07/04/19 Admission Dx/Problem (Free Text): Admission Diagnosis/Problem Admission Diagnosis/Problem UTI (urinary tract infection) due to urinary indwelling catheter Subjective Update: Follow up Functional Status: Reports: Pain Controlled, Tolerating Diet, Ambulating, Urinating. Denies: New Symptoms - Review of Systems General: Denies: Fever, Chills HEENT: Reports: No Symptoms Pulmonary: Denies: Shortness of Breath Cardiovascular: Denies: Chest Pain, Dyspnea on Exertion, Lightheadedness Gastrointestinal: Denies: Abdominal Pain, Nausea, Vomiting Genitourinary: Reports: No Symptoms Musculoskeletal: Reports: No Symptoms Skin: Denies: Cyanosis, Pallor, Diaphoresis, Other Neurological: Reports: Gait Disturbance. Denies: Confusion, Difficulty Walking , Weakness Psychiatric: Denies: Depression, Anxiety, Agitation, Hallucinations - Patient Data Vitals - Most Recent: Last Vital Signs Temp 36.5 C 07/04/19 04:52 Pulse 58 L 07/04/19 04:52 Resp 18 07/04/19 04:52 BP 148/72 H 07/04/19 05:06 Pulse Ox 94 L 07/04/19 04:52 Weight - Most Recent: 113.171 kg I&O - Last 24 Hours: Intake & Output 07/03/19 07/04/19 07/04/19 22:59 06:59 14:59 Intake Total 506 684 Output Total 500 1900 Balance 6 -1216 Lab Results Last 24 Hours: Laboratory Results - last 24 hr 07/01/19 07/03/19 07/03/19 Range/Units 05:21 07:55 07:55 WBC 3.79 L (3.98-10.04) K/mm3 RBC 4.07 (3.98-5.22) M/mm3 Hgb 12.6 (11.2-15.7) gm/dl Hct 38.4 (34.1-44.9) % MCV 94.3 (79.4-94.8) fl MCH 31.0 (25.6-32.2) pg MCHC 32.8 (32.2-35.5) g/dl RDW Std Deviation 46.9 H (36.4-46.3) fL Plt Count 164 L (182-369) K/mm3 MPV 10.9 (9.4-12.3) fl Neut % (Auto) 42.0 (34.0-71.1) % Lymph % (Auto) 39.3 (19.3-51.7) % [place] % (Auto) 10.0 (4.7-12.5) % Eos % (Auto) 7.9 H (0.7-5.8) Baso % (Auto) 0.5 (0.1-1.2) % Neut # (Auto) 1.59 (1.56-6.13) K/mm3 Lymph # (Auto) 1.49 (1.18-3.74) K/mm3 [place] # (Auto) 0.38 H (0.24-0.36) K/mm3 Eos # (Auto) 0.30 (0.04-0.36) K/mm3 Baso # (Auto) 0.02 (0.01-0.08) K/mm3 Sodium 137 (136-145) mEq/L Potassium 3.8 (3.5-5.1) mEq/L Chloride 99 (98-107) mEq/L Carbon Dioxide 29 (21-32) mEq/L Anion Gap 12.8 (5-15) BUN 31 H (7-18) mg/dL Creatinine 1.1 H (0.55-1.02) mg/dL Est Cr Clr Drug Dosing 39.70 mL/min Estimated GFR (MDRD) 48 (>60) mL/min BUN/Creatinine Ratio 28.2 H (14-18) Glucose 86 (83-115) mg/dL Calcium 9.1 (8.5-10.1) mg/dL Magnesium 1.6 L (1.8-2.4) mg/dl Total Bilirubin 0.9 (0.2-1.0) mg/dL AST 77 H (15-37) U/L ALT 83 H (14-59) U/L Alkaline Phosphatase 392 H (46-116) U/L C-Reactive Protein 11.5 H* (<1.0) mg/dL Total Protein 6.1 L (6.4-8.2) g/dl Albumin 3.0 L (3.4-5.0) g/dl Globulin 3.1 gm/dL Albumin/Globulin Ratio 1.0 (1-2) Hep Bs Antibody, Quant <3.1 L (Immunity>9.9) mIU/mL 07/04/19 07/04/19 Range/Units 05:36 05:36 WBC 4.39 (3.98-10.04) K/mm3 RBC 3.96 L (3.98-5.22) M/mm3 Hgb 12.3 (11.2-15.7) gm/dl Hct 37.4 (34.1-44.9) % MCV 94.4 (79.4-94.8) fl MCH 31.1 (25.6-32.2) pg MCHC 32.9 (32.2-35.5) g/dl RDW Std Deviation 47.2 H (36.4-46.3) fL Plt Count 162 L (182-369) K/mm3 MPV 11.1 (9.4-12.3) fl Neut % (Auto) 27.8 L (34.0-71.1) % Lymph % (Auto) 52.6 H (19.3-51.7) % [place] % (Auto) 13.9 H (4.7-12.5) % Eos % (Auto) 5.2 (0.7-5.8) Baso % (Auto) 0.5 (0.1-1.2) % Neut # (Auto) 1.22 L (1.56-6.13) K/mm3 Lymph # (Auto) 2.31 (1.18-3.74) K/mm3 [place] # (Auto) 0.61 H (0.24-0.36) K/mm3 Eos # (Auto) 0.23 (0.04-0.36) K/mm3 Baso # (Auto) 0.02 (0.01-0.08) K/mm3 Sodium 138 (136-145) mEq/L Potassium 3.6 (3.5-5.1) mEq/L Chloride 99 (98-107) mEq/L Carbon Dioxide 33 H (21-32) mEq/L Anion Gap 9.6 (5-15) BUN 30 H (7-18) mg/dL Creatinine 1.2 H (0.55-1.02) mg/dL Est Cr Clr Drug Dosing 36.39 mL/min Estimated GFR (MDRD) 44 (>60) mL/min BUN/Creatinine Ratio 25.0 H (14-18) Glucose 96 (83-115) mg/dL Calcium 9.9 (8.5-10.1) mg/dL Magnesium 1.7 L (1.8-2.4) mg/dl Total Bilirubin 0.7 (0.2-1.0) mg/dL AST 58 H (15-37) U/L ALT 69 H (14-59) U/L Alkaline Phosphatase 398 H (46-116) U/L C-Reactive Protein 6.1 H* (<1.0) mg/dL Total Protein 5.7 L (6.4-8.2) g/dl Albumin 2.8 L (3.4-5.0) g/dl Globulin 2.9 gm/dL Albumin/Globulin Ratio 1.0 (1-2) Hep Bs Antibody, Quant (Immunity>9.9) mIU/mL Med Orders - Current: Current Medications Albuterol (Proventil Hfa) 0 gm INH Q4H PRN PRN Reason: Shortness of Breath Albuterol/Ipratropium (Duoneb 3.0-0.5 Mg/3 Ml) 3 ml NEB Q4H PRN PRN Reason: Shortness Of Breath/wheezing Bisacodyl (Dulcolax) 5 mg PO DAILY PRN PRN Reason: Constipation Last Admin: 07/04/19 05:02 Dose: 5 mg Cephalexin (Keflex) 500 mg PO BID [facility] Last Admin: 07/03/19 20:16 Dose: 500 mg Cholecalciferol (Vitamin D3) 50 mcg PO DAILY [facility] Last Admin: 07/03/19 09:59 Dose: 50 mcg Cyanocobalamin (Vitamin B12) 500 mcg PO DAILY [facility] Last Admin: 07/03/19 09:58 Dose: 500 mcg Docusate Sodium (Colace) 100 mg PO BID PRN PRN Reason: Constipation Last Admin: 07/04/19 05:02 Dose: 100 mg Enoxaparin Sodium (Lovenox) 40 mg SUBCUT DAILY [facility] Last Admin: 07/03/19 09:59 Dose: 40 mg Famotidine (Pepcid) 10 mg PO ACBREAKFAST [facility] Last Admin: 07/04/19 05:02 Dose: 10 mg Furosemide (Lasix) 20 mg PO DAILY [facility] Last Admin: 07/03/19 09:58 Dose: 20 mg Hydromorphone HCl (Dilaudid) 0.25 mg IVPUSH Q2H PRN PRN Reason: Pain (severe 7-10) Sodium Chloride (Normal Saline) 1,000 mls @ 25 mls/hr IV ASDIRECTED [facility] Last Admin: 07/03/19 16:43 Dose: 25 mls/hr Ibuprofen (Motrin) 400 mg PO Q6H PRN PRN Reason: fever/pain Last Admin: 07/03/19 16:44 Dose: 400 mg Magnesium Oxide (Magnesium Oxide) 400 mg PO BID [facility] Last Admin: 07/03/19 20:16 Dose: 400 mg Metoprolol Succinate (Toprol Xl) 50 mg PO DAILY [facility] Last Admin: 07/03/19 09:58 Dose: 50 mg Saccharomyces Boulardii (Florastor) 250 mg PO DAILY [facility] Last Admin: 07/03/19 09:59 Dose: 250 mg Senna/Docusate Sodium (Senna Plus) 1 tab PO BID PRN PRN Reason: Constipation Last Admin: 07/03/19 06:39 Dose: 1 tab Temazepam (Restoril) 7.5 mg PO BEDTIME PRN PRN Reason: Sleep Last Admin: 07/03/19 20:16 Dose: 7.5 mg Trospium (Sanctura) 20 mg PO BIDAC [facility] Last Admin: 07/04/19 05:02 Dose: 20 mg Venlafaxine HCl (Effexor Xr) 150 mg PO DAILY [facility] Last Admin: 07/03/19 09:59 Dose: 150 mg Discontinued Medications Acetaminophen (Tylenol) 650 mg PO Q4H PRN PRN Reason: Pain (Mild 1-3)/fever Acetaminophen/Butalbital/Caffeine (Fioricet 325-50-40 Mg) 1 tab PO Q6H PRN PRN Reason: Headache Last Admin: 07/01/19 10:01 Dose: 1 tab Hydrocodone Bitart/Acetaminophen ([place] 325-5 Mg) 1 tab PO Q4H PRN PRN Reason: Pain (moderate 4-6) Doxepin HCl (Sinequan) 10 mg PO BEDTIME [facility] Last Admin: 07/01/19 20:57 Dose: Not Given Magnesium Sulfate 2 gm/ Premix 50 mls @ 50 mls/hr IV ONETIME ONE Stop: 06/30/19 21:35 Last Admin: 06/30/19 21:55 Dose: 50 mls/hr Ceftriaxone Sodium 1 gm/ (Sodium Chloride) 100 mls @ 200 mls/hr IV ONETIME [facility] Stop: 06/30/19 21:36 Last Admin: 06/30/19 21:23 Dose: 200 mls/hr Sodium Chloride (Normal Saline) 1,000 mls @ 150 mls/hr IV ASDIRECTED [facility] Last Infusion: 07/01/19 14:00 Dose: Infused Magnesium Sulfate 2 gm/ Premix 50 mls @ 25 mls/hr IV ONETIME ONE Stop: 07/01/19 00:51 Last Admin: 07/01/19 00:08 Dose: 25 mls/hr Ceftriaxone Sodium 1 gm/ (Sodium Chloride) 100 mls @ 200 mls/hr IV Q24H [facility] Last Admin: 07/02/19 21:12 Dose: 200 mls/hr Promethazine HCl 6.25 mg/ (Sodium Chloride) 50.25 mls @ 100 mls/hr IV Q6H PRN PRN Reason: Nausea/Vomiting Potassium Chloride 10 meq/ (Premix) 100 mls @ 100 mls/hr IV Q1H [facility] Stop: 07/01/19 05:29 Last Admin: 07/01/19 05:45 Dose: 100 mls/hr Sodium Chloride (Normal Saline) 1,000 mls @ 50 mls/hr IV ASDIRECTED [facility] Magnesium Sulfate 2 gm/ Premix 50 mls @ 25 mls/hr IV ONETIME ONE Stop: 07/01/19 23:08 Last Admin: 07/01/19 21:52 Dose: 25 mls/hr Magnesium Sulfate 2 gm/ Premix 50 mls @ 25 mls/hr IV ONETIME ONE Stop: 07/03/19 22:05 Last Admin: 07/03/19 20:16 Dose: 25 mls/hr Ondansetron HCl (Zofran) 4 mg IV Q6H PRN PRN Reason: Nausea/Vomiting Pantoprazole Sodium (Protonix) 40 mg PO BID@0700,1600 [facility] Last Admin: 07/03/19 06:38 Dose: 40 mg Potassium Chloride (Klor-Con 10) 60 meq PO ONETIME ONE Stop: 06/30/19 23:02 Last Admin: 07/01/19 00:08 Dose: 60 meq Potassium Chloride (Klor-Con M20) 60 meq PO ONETIME ONE Stop: 07/01/19 07:15 Last Admin: 07/01/19 10:50 Dose: Not Given Potassium Chloride (Klor-Con M20) 60 meq PO ONETIME ONE Stop: 07/01/19 10:16 Last Admin: 07/01/19 11:06 Dose: 60 meq - Exam General: Alert, Oriented, Cooperative, No Acute Distress, Other (Morbidly Obese) HEENT: Pupils Equal, Pupils Reactive, EOMI, Mucous Membr. Moist/[place] Neck: Supple Lungs: Clear to Auscultation, Normal Respiratory Effort Cardiovascular: Regular Rate, Regular Rhythm GI/Abdominal Exam: Normal Bowel Sounds, Soft, Non-Tender, No Organomegaly, No Distention, No Abnormal Bruit, Other (Obese) (Female) Exam: Deferred Back Exam: Normal Inspection, Decreased Range of Motion Extremities: Non-Tender, Pedal Edema, Slow Capillary Refill, Limited Range of Motion, Redness (ob b/l lower extremity), Other (sore on right lower extremity covered with mepilex). No: Leg Pain Skin: Warm, Dry, Intact Neurological: No New Focal Deficit (limited due to body habitus but grossly intact). No: Normal Gait Psy/Mental Status: Alert, Normal Affect, Normal Mood - Problem List Review Problem List Initiated/Reviewed/Updated: Yes - My Orders Last 24 Hours: My Active Orders 07/03/19 08:00 Consult to Speech Language Pathology [COUNTY TREASURER Evaluation and Treatment] [CONS] Routine 07/03/19 21:00 cephALEXin [Keflex] 500 mg PO BID 07/04/19 09:00 HIDA with EF [Cholescintigraphy w Pharm Int] [NM] Routine 07/04/19 Breakfast NPO After Midnight [Nothing per Oral After Midnight Diet] [DIET] 07/05/19 05:11 C-REACTIVE PROTEIN [CHEM] AM CBC WITH AUTO DIFF [HEME] AM CMP [COMPREHENSIVE METABOLIC PN,CMP] [CHEM] AM MAGNESIUM [CHEM] AM - Plan Plan:: Assessment: Acute: UTI - Diagnosed on previous admission - 2/ E. coli - IV Rocephin 1 gram daily--> pharmacy to switch to oral antibiotic - CRP is 16.2-->18.4--> 11.5-->6.1 Recurrent Fall - Again found on the bathroom by a neighbor this would be her a recurrent episode - She is likely non-complaint Renal Insufficiency, At baseline - Cr of 1.3-->1.2-->1.1-->1.1 with BUN of 29-->28-->29-->31 - Likely from Pre-renal Azotemia - IV hydration and monitor output Transaminitis with Hyperbilirubinemia, Improving - AST of 135-->77-->58, ALT of 156-->83-->69 - Alk phos of 156-->394 with Total Bilirubin of 1.3-->1.5-->0.9-->0.7 - She likely has fatty liver disease (she is morbidly obese) - GGT: 81 - Liver U/S: Single Large gallstone within the gallbladder w/o gallbladder wall thickening or biliary duct dilatation - Hep C Abs negative - Consult Dr. Hdz for further evaluation: recommends conservative for now with HIDA scan - HIDA scan scheduled today Generalized Weakness - 2/2 Metabolic Derangement and Recent Fall - Continue PT/OT treatment - Vit D level normal Morbid Obesity - Dietary consult for weight management - BMI of 48 Failure to Thrive - Patient just recently discharged from the hospital - Has HHS but failed to take care herself - She has no family support locally - States her sister from [place] will be coming down to be with her but with unknown duration of stay - She needs 24hr care or NH placement Single Large gallstone within the gallbladder w/o gallbladder wall thickening or biliary duct dilatation - Asymptomatic - She is drinking and eating well - Consulted General Surgery Moderate Cognitive Impairment - COUNTY TREASURER note: "Recommend COUNTY TREASURER Tx at next level of care, preferably an [facility] or SNF. If patient insists on remaining in her current living situation with HH, recommend referral to OT for cognitive compensatory strategies" - Ask CM/SW to assess discharge care plan - She wants to go home but she may not be safe to alone since she has no home support - She went home last night and after a couple of days she back in the hospital for similar scenario - May need to get a hold of her DPOA (unsure) and make her/him aware of this important finding Resolved: S/p Hypomagnesemia - Mg 1.3; 1.1 on recent admission-->1.8-->1.9 - Replete and monitor S/p Hypokalemia - K of 2.9-->3.4-->3.7 - Replete and monitor Chronic: Impaired Vision, HTN, Asthma, OA/DJD, Stasis Dermatitis, Anxiety, Gait Instability S/p Fall and Morbid Obesity Plan: She remains clinically stable Routine AM labs AHA diet DVT/GI Prophylaxis Fall Precautions May need Psych eval PT/OT to assess and treat; they recommend SNF with PT/OT SW/CM for d/c planing Recommend NH placement but patient is adamant to go back home Code status: full Additional orders as above LOS > 96hrs due to slow response to treatment
[2019-07-04] MEDS ORDERED: Magnesium Sulfate/Water 2 GM in Premix Bag 1 BAG IV ONE (10:00)
[2019-07-04] MEDS: Venlafaxine 75 MG Cap.ER PO SCH (11:46)
[2019-07-04] MEDS: Cholecalciferol (Vitamin D3) 25 MCG Tab PO SCH (11:46)
[2019-07-04] MEDS: Saccharomyces Boulardii (Probiotic) 250 MG Cap PO SCH (11:46)
[2019-07-04] MEDS: Cyanocobalamin (Vitamin B12) 1,000 MCG Tab PO SCH (11:46)
[2019-07-04] MEDS: Enoxaparin 40 MG/0.4 ML Syringe SUBCUT SCH (11:47)
[2019-07-04] MEDS: Cephalexin 500 MG Cap PO SCH ×2 (11:47→22:11)
[2019-07-04] MEDS: Magnesium Oxide 400 MG Tab PO SCH ×2 (11:47→22:11)
[2019-07-04] MEDS: Furosemide 20 MG Tab PO SCH (11:47)
[2019-07-04] MEDS: Metoprolol Succinate 50 MG Tab.ER PO SCH (11:48)
--- NOTE | 2019-07-04 12:11 | NM ---
Biliary HIDA scan Technique: 3.0 mCi of technetium 99m mebrofenin was given intravenously. Scintigraphic imaging then obtained up to 2 hours. Findings: Faint filling of the gallbladder is noted at 2 hours. Impression: 1. Poor filling of the gallbladder but no evidence of cystic duct obstruction. Findings may relate to chronic cholecystitis. Diagnostic code #3
[2019-07-04] MEDS: Ibuprofen 400 MG Tab PO PRN (13:11)
[2019-07-04] MEDS ORDERED: Bisacodyl 10 MG Supp RECTAL ONE (16:42)
[2019-07-05] MEDS: Sodium Chloride 0.9% 1,000 ML IV SCH (03:55)
[2019-07-05] MEDS: Ibuprofen 400 MG Tab PO PRN ×2 (03:55→17:15)
[2019-07-05] MEDS: Trospium 20 MG Tab PO SCH ×2 (07:36→15:31)
[2019-07-05] MEDS: Famotidine 20 MG Tab PO SCH (07:36)
[2019-07-05] MEDS ORDERED: Magnesium Sulfate/Water 2 GM in Premix Bag 1 BAG IV ONE (09:12)
[2019-07-05] MEDS ORDERED: Potassium Chloride 20 MEQ Tab.ER PO ONE (09:12)
[2019-07-05] MEDS: Saccharomyces Boulardii (Probiotic) 250 MG Cap PO SCH (09:45)
[2019-07-05] MEDS: Furosemide 20 MG Tab PO SCH (09:45)
[2019-07-05] MEDS: Magnesium Oxide 400 MG Tab PO SCH ×2 (09:46→20:09)
[2019-07-05] MEDS: Cyanocobalamin (Vitamin B12) 1,000 MCG Tab PO SCH (09:46)
[2019-07-05] MEDS: Cholecalciferol (Vitamin D3) 25 MCG Tab PO SCH (09:46)
[2019-07-05] MEDS: Venlafaxine 75 MG Cap.ER PO SCH (09:47)
[2019-07-05] MEDS: Enoxaparin 40 MG/0.4 ML Syringe SUBCUT SCH (09:48)
[2019-07-05] MEDS: Metoprolol Succinate 50 MG Tab.ER PO SCH (09:48)
[2019-07-05] MEDS: Cephalexin 500 MG Cap PO SCH ×2 (09:48→20:10)
--- NOTE | 2019-07-05 19:38 | PCM.PN ---
- General Info Date of Service: 07/05/19 Admission Dx/Problem (Free Text): Admission Diagnosis/Problem Admission Diagnosis/Problem UTI (urinary tract infection) due to urinary indwelling catheter Subjective Update: Patient is doing well with no new complaints. Moving her bowels and eating well. Functional Status: Reports: Pain Controlled - Review of Systems General: Reports: No Symptoms HEENT: Reports: No Symptoms Pulmonary: Reports: No Symptoms Cardiovascular: Reports: Edema Gastrointestinal: Reports: No Symptoms Skin: Reports: Other (Redness to the lower extremities with small area of an open wound on the anterior ahn) - Patient Data Vitals - Most Recent: Last Vital Signs Temp 97.3 F 07/05/19 15:42 Pulse 62 07/05/19 15:42 Resp 14 07/05/19 15:42 BP 124/59 L 07/05/19 15:42 Pulse Ox 93 L 07/05/19 15:42 Weight - Most Recent: 242 lb 12.8 oz I&O - Last 24 Hours: Intake & Output 07/05/19 07/05/19 07/05/19 06:59 14:59 22:59 Intake Total 1300 1619 Output Total 1850 Balance -550 1619 Lab Results Last 24 Hours: Laboratory Results - last 24 hr 07/05/19 07/05/19 Range/Units 05:28 05:28 WBC 6.94 (3.98-10.04) K/mm3 RBC 3.81 L (3.98-5.22) M/mm3 Hgb 11.9 (11.2-15.7) gm/dl Hct 35.9 (34.1-44.9) % MCV 94.2 (79.4-94.8) fl MCH 31.2 (25.6-32.2) pg MCHC 33.1 (32.2-35.5) g/dl RDW Std Deviation 48.2 H (36.4-46.3) fL Plt Count 166 L (182-369) K/mm3 MPV 10.5 (9.4-12.3) fl Neut % (Auto) 46.2 (34.0-71.1) % Lymph % (Auto) 38.5 (19.3-51.7) % [place] % (Auto) 13.5 H (4.7-12.5) % Eos % (Auto) 1.3 (0.7-5.8) Baso % (Auto) 0.4 (0.1-1.2) % Neut # (Auto) 3.20 (1.56-6.13) K/mm3 Lymph # (Auto) 2.67 (1.18-3.74) K/mm3 [place] # (Auto) 0.94 H (0.24-0.36) K/mm3 Eos # (Auto) 0.09 (0.04-0.36) K/mm3 Baso # (Auto) 0.03 (0.01-0.08) K/mm3 Sodium 141 (136-145) mEq/L Potassium 3.5 (3.5-5.1) mEq/L Chloride 101 (98-107) mEq/L Carbon Dioxide 34 H (21-32) mEq/L Anion Gap 9.5 (5-15) BUN 29 H (7-18) mg/dL Creatinine 1.2 H (0.55-1.02) mg/dL Est Cr Clr Drug Dosing 36.39 mL/min Estimated GFR (MDRD) 44 (>60) mL/min BUN/Creatinine Ratio 24.2 H (14-18) Glucose 108 (83-115) mg/dL Calcium 9.7 (8.5-10.1) mg/dL Magnesium 1.7 L (1.8-2.4) mg/dl Total Bilirubin 0.7 (0.2-1.0) mg/dL AST 44 H (15-37) U/L ALT 53 (14-59) U/L Alkaline Phosphatase 343 H (46-116) U/L C-Reactive Protein 3.9 H* (<1.0) mg/dL Total Protein 5.4 L (6.4-8.2) g/dl Albumin 2.8 L (3.4-5.0) g/dl Globulin 2.6 gm/dL Albumin/Globulin Ratio 1.1 (1-2) Med Orders - Current: Current Medications Albuterol (Proventil Hfa) 0 gm INH Q4H PRN PRN Reason: Shortness of Breath Albuterol/Ipratropium (Duoneb 3.0-0.5 Mg/3 Ml) 3 ml NEB Q4H PRN PRN Reason: Shortness Of Breath/wheezing Bisacodyl (Dulcolax) 5 mg PO DAILY PRN PRN Reason: Constipation Last Admin: 07/04/19 05:02 Dose: 5 mg Cephalexin (Keflex) 500 mg PO BID [facility] Last Admin: 07/05/19 09:48 Dose: 500 mg Cholecalciferol (Vitamin D3) 50 mcg PO DAILY [facility] Last Admin: 07/05/19 09:46 Dose: 50 mcg Cyanocobalamin (Vitamin B12) 500 mcg PO DAILY [facility] Last Admin: 07/05/19 09:46 Dose: 500 mcg Docusate Sodium (Colace) 100 mg PO BID PRN PRN Reason: Constipation Last Admin: 07/04/19 05:02 Dose: 100 mg Enoxaparin Sodium (Lovenox) 40 mg SUBCUT DAILY [facility] Last Admin: 07/05/19 09:48 Dose: 40 mg Famotidine (Pepcid) 10 mg PO ACBREAKFAST [facility] Last Admin: 07/05/19 07:36 Dose: 10 mg Furosemide (Lasix) 20 mg PO DAILY [facility] Last Admin: 07/05/19 09:45 Dose: 20 mg Hydromorphone HCl (Dilaudid) 0.25 mg IVPUSH Q2H PRN PRN Reason: Pain (severe 7-10) Ibuprofen (Motrin) 400 mg PO Q6H PRN PRN Reason: fever/pain Last Admin: 07/05/19 17:15 Dose: 400 mg Magnesium Oxide (Magnesium Oxide) 400 mg PO BID [facility] Last Admin: 07/05/19 09:46 Dose: 400 mg Metoprolol Succinate (Toprol Xl) 50 mg PO DAILY [facility] Last Admin: 07/05/19 09:48 Dose: 50 mg Saccharomyces Boulardii (Florastor) 250 mg PO DAILY [facility] Last Admin: 07/05/19 09:45 Dose: 250 mg Senna/Docusate Sodium (Senna Plus) 1 tab PO BID PRN PRN Reason: Constipation Last Admin: 07/03/19 06:39 Dose: 1 tab Temazepam (Restoril) 7.5 mg PO BEDTIME PRN PRN Reason: Sleep Last Admin: 07/03/19 20:16 Dose: 7.5 mg [facility] Last Admin: 07/05/19 15:31 Dose: 20 mg Venlafaxine HCl (Effexor Xr) 150 mg PO DAILY [facility] Venlafaxine HCl (Effexor Xr) 37.5 mg PO DAILY [facility] Discontinued Medications Acetaminophen (Tylenol) 650 mg PO Q4H PRN PRN Reason: Pain (Mild 1-3)/fever Acetaminophen/Butalbital/Caffeine (Fioricet 325-50-40 Mg) 1 tab PO Q6H PRN PRN Reason: Headache Last Admin: 07/01/19 10:01 Dose: 1 tab Hydrocodone Bitart/Acetaminophen (Cecilia 325-5 Mg) 1 tab PO Q4H PRN PRN Reason: Pain (moderate 4-6) Bisacodyl (Dulcolax) 10 mg RECTAL ONETIME ONE Stop: 07/04/19 16:43 Last Admin: 07/04/19 16:49 Dose: 10 mg Doxepin HCl (Sinequan) 10 mg PO BEDTIME [facility] Last Admin: 07/01/19 20:57 Dose: Not Given Magnesium Sulfate 2 gm/ Premix 50 mls @ 50 mls/hr IV ONETIME ONE Stop: 06/30/19 21:35 Last Admin: 06/30/19 21:55 Dose: 50 mls/hr Ceftriaxone Sodium 1 gm/ (Sodium Chloride) 100 mls @ 200 mls/hr IV ONETIME STA Stop: 06/30/19 21:36 Last Admin: 06/30/19 21:23 Dose: 200 mls/hr Sodium Chloride (Normal Saline) 1,000 mls @ 150 mls/hr IV ASDIRECTED [facility] Last Infusion: 07/01/19 14:00 Dose: Infused Magnesium Sulfate 2 gm/ Premix 50 mls @ 25 mls/hr IV ONETIME ONE Stop: 07/01/19 00:51 Last Admin: 07/01/19 00:08 Dose: 25 mls/hr Ceftriaxone Sodium 1 gm/ (Sodium Chloride) 100 mls @ 200 mls/hr IV Q24H [facility] Last Admin: 07/02/19 21:12 Dose: 200 mls/hr Promethazine HCl 6.25 mg/ (Sodium Chloride) 50.25 mls @ 100 mls/hr IV Q6H PRN PRN Reason: Nausea/Vomiting Potassium Chloride 10 meq/ (Premix) 100 mls @ 100 mls/hr IV Q1H [facility] Stop: 07/01/19 05:29 Last Admin: 07/01/19 05:45 Dose: 100 mls/hr Sodium Chloride (Normal Saline) 1,000 mls @ 50 mls/hr IV ASDIRECTED [facility] Sodium Chloride (Normal Saline) 1,000 mls @ 25 mls/hr IV ASDIRECTED [facility] Last Admin: 07/05/19 03:55 Dose: 25 mls/hr Magnesium Sulfate 2 gm/ Premix 50 mls @ 25 mls/hr IV ONETIME ONE Stop: 07/01/19 23:08 Last Admin: 07/01/19 21:52 Dose: 25 mls/hr Magnesium Sulfate 2 gm/ Premix 50 mls @ 25 mls/hr IV ONETIME ONE Stop: 07/03/19 22:05 Last Admin: 07/03/19 20:16 Dose: 25 mls/hr Magnesium Sulfate 2 gm/ Premix 50 mls @ 25 mls/hr IV ONETIME ONE Stop: 07/04/19 11:59 Last Admin: 07/04/19 11:44 Dose: 25 mls/hr Magnesium Sulfate 2 gm/ Premix 50 mls @ 25 mls/hr IV ONETIME ONE Stop: 07/05/19 11:11 Last Admin: 07/05/19 09:43 Dose: 25 mls/hr Ondansetron HCl (Zofran) 4 mg IV Q6H PRN PRN Reason: Nausea/Vomiting Pantoprazole Sodium (Protonix) 40 mg PO BID@0700,1600 [facility] Last Admin: 07/03/19 06:38 Dose: 40 mg Potassium Chloride (Klor-Con 10) 60 meq PO ONETIME ONE Stop: 06/30/19 23:02 Last Admin: 07/01/19 00:08 Dose: 60 meq Potassium Chloride (Klor-Con M20) 60 meq PO ONETIME ONE Stop: 07/01/19 07:15 Last Admin: 07/01/19 10:50 Dose: Not Given Potassium Chloride (Klor-Con M20) 60 meq PO ONETIME ONE Stop: 07/01/19 10:16 Last Admin: 07/01/19 11:06 Dose: 60 meq Potassium Chloride (Klor-Con M20) 20 meq PO ONETIME ONE Stop: 07/05/19 09:13 Last Admin: 07/05/19 09:47 Dose: 20 meq Venlafaxine HCl (Effexor Xr) 150 mg PO DAILY [facility] Last Admin: 07/05/19 09:47 Dose: 150 mg - Exam General: Alert, Oriented HEENT: Pupils Equal, Pupils Reactive, EOMI, Mucous Membr. Moist/[place] Neck: Supple Lungs: Clear to Auscultation, Normal Respiratory Effort Cardiovascular: Regular Rate, Regular Rhythm GI/Abdominal Exam: Normal Bowel Sounds, Soft, Non-Tender, No Distention Back Exam: Normal Inspection, Full Range of Motion Extremities: Normal Inspection, Pedal Edema (2+), Redness (Bilateral lower extremity with right lower extremity open wound on the anterior ahn with warmth ) Skin: Warm, Dry Neurological: No New Focal Deficit Psy/Mental Status: Alert - Problem List Review Problem List Initiated/Reviewed/Updated: Yes - Plan Plan:: Assessment: Acute: UTI - Diagnosed on previous admission - 2/2 E. coli - IV Rocephin 1 gram daily--> pharmacy to switch to oral antibiotic - CRP is 16.2-->18.4--> 11.5-->6.1 Recurrent Fall - Again found on the bathroom by a neighbor this would be her a recurrent episode - She is likely non-complaint Renal Insufficiency, At baseline - Cr of 1.3-->1.2-->1.1-->1.1 with BUN of 29-->28-->29-->31 - Likely from Pre-renal Azotemia - IV hydration and monitor output Transaminitis with Hyperbilirubinemia, Improving - AST of 135-->77-->58-->44, ALT of 156-->83-->69-->53 - Alk phos of 156-->394-->343 with Total Bilirubin of 1.3-->1.5-->0.9-->0.7-- >0.7 - She likely has fatty liver disease (she is morbidly obese) - GGT: 81 - Liver U/S: Single Large gallstone within the gallbladder w/o gallbladder wall thickening or biliary duct dilatation - Hep C Abs negative - Consult Dr. Hdz for further evaluation: recommends conservative for now with HIDA scan - HIDA scan results: Poor filling of the gallbladder but no evidence of cystic duct obstruction. Findings may relate to chronic cholecystitis. Generalized Weakness - 2/2 Metabolic Derangement and Recent Fall - Continue PT/OT treatment - Vit D level normal Morbid Obesity - Dietary consult for weight management - BMI of 48 Failure to Thrive - Patient just recently discharged from the hospital - Has HHS but failed to take care herself - She has no family support locally - States her sister from [place] will be coming down to be with her but with unknown duration of stay - She needs 24hr care or NH placement Single Large gallstone within the gallbladder w/o gallbladder wall thickening or biliary duct dilatation - Asymptomatic - She is drinking and eating well - Consulted General Surgery Moderate Cognitive Impairment - TRANSPORTATION COORDINATOR note: "Recommend TRANSPORTATION COORDINATOR Tx at next level of care, preferably an LONG-TERM or SNF. If patient insists on remaining in her current living situation with HH, recommend referral to OT for cognitive compensatory strategies" - Ask CM/SW to assess discharge care plan - She wants to go home but she may not be safe to alone since she has no home support - She went home last night and after a couple of days she back in the hospital for similar scenario - May need to get a hold of her DPOA (unsure) and make her/him aware of this important finding Cellulitis right lower extremity with open wound - Continue Keflex - Dress wound - Monitor closely Resolved: S/p Hypomagnesemia - Mg 1.3; 1.1 on recent admission-->1.8-->1.9-->1.7 - Replete and monitor S/p Hypokalemia - K of 2.9-->3.4-->3.7--3.5 - Replete and monitor Chronic: Impaired Vision, HTN, Asthma, OA/DJD, Stasis Dermatitis, Anxiety, Gait Instability S/p Fall and Morbid Obesity Plan: She remains clinically stable Routine AM labs AHA diet DVT/GI Prophylaxis Fall Precautions May need Psych eval PT/OT to assess and treat; they recommend SNF with PT/OT SW/CM for d/c planing Recommend NH placement but patient is adamant to go back home Code status: full Additional orders as above LOS > 96hrs due to slow response to treatment
--- NOTE | 2019-07-05 21:15 | CONS ---
CONSULTING PHYSICIAN: Lester Swanson MD DATE OF CONSULTATION: 07/05/2019 Site where the services are provided is [facility] in [place], [place]. Site where the services are provided is from our office in [facility]. Length of service for this 60-minute inpatient telemedicine event is 60 minutes. IDENTIFICATION: The patient is a 73-year-old female who is admitted through the inpatient Med/Surg Unit at [facility] in [place], [place] on 06/30/2019. She is seen for psychiatric consultation per the request of staff attending, Dr. Villegas and his treatment team. CHIEF COMPLAINT: "The infection was making me so sick." HISTORY OF PRESENT ILLNESS: The patient is a 73-year-old female who is admitted to the inpatient Med/Surg Unit at [facility] secondary to dehydration and possible UTI. The patient is stating that she has been "just agitated" lately when asked how she has been doing from a mood standpoint. She states that she has a little bit of depression, but also notes "everybody seems so like they are getting so sick and then passing away" lately. She states "lately, I have lost a lot of family members." She reports poor sleep and increased worries. She reports some fluctuating memory, although she is alert and oriented x3. She states more so than depression, she just feels agitated. That said, the patient is stating she does not want her medications adjusted too much, but if she could get something done to help her with her worries and help her with her sleep, she would be fine with that. She has been on Effexor XR for sometime now and that initially did help her. She denies that she is suicidal or homicidal. She denies any psychotic, delusional, or paranoid symptoms. MEDICATIONS: Psychiatric medications at the time of presentation; Effexor XR 150 mg q.a.m. ALLERGIES: No known drug allergies. PAST MEDICAL HISTORY: The patient does report a history of; 1. Arthritis. 2. Possible history of UTI. REVIEW OF SYSTEMS: Aside from musculoskeletal and genitourinary, all other major organ systems are negative at this point in time for acute difficulties or complications. FAMILY PSYCHIATRIC AND CD HISTORY: Patient denies. PAST PSYCHIATRIC AND CD HISTORY: The patient denies any previous psychiatric hospitalizations or chemical dependency treatments. Denies any previous suicide attempts, self-injurious behaviors. She is a nontobacco user. She says that her primary MD, Dr. Caballero is who gives her the Effexor medication. He is at [facility] on outpatient side. SOCIAL HISTORY: The patient is born in [place], [place], raised in [place]. Her parents were [place] [facility]. [place] to the patient. The patient was for quite sometime, but since 2000. She has 8 children from the marriage. Currently, she is living in [place], [place] by herself. She enjoys crocheting, crafts, and walking in her spare time, although she is not able to walk as much as she did in the past because of poor balance. She is [employer] in terms of her isabel formation. MENTAL STATUS EXAM: The patient is a 73-year-old soft-spoken white female, in no apparent distress. Speech is of regular rate. The patient is cognitively oriented x3; person, place, and date. Psychomotor activity is within normal limits. The patient is sitting on side of bed and rocking gently during the course of the interview. Gait and station are not observed. Again, this patient is seated on the side of bed during the course of the interview. Mood is "agitated." Affect is consistent with stated mood, but cooperative overall for the purposes of the inpatient consult. The patient does seem to calm down and be less anxious when engaged in conversation. There is no behavioral or stated evidence of acute suicidal or homicidal ideation. There are no acute psychotic, delusional, or paranoid symptoms. Thought processes do appear significant for racing thoughts or ruminations however. There are no manic symptoms. There are no loose associations evident. Judgment and insight appear unimpaired at this point in time. Motivation for help appears fair to good. VITALS: 149/90, 65, 16, 98.6 degrees. IMPRESSION: Spencer I: 1. Anxiety disorder, NOS, F41.9. 2. Rule out major depressive disorder, recurrent, F33. 3. Rule out dementia, NOS, developing F03.90. 4. Rule out of developing pseudodementia. Spencer II: None. Spencer III: 1. Arthritis. 2. Possible urinary tract infection, currently being worked up by treatment team. Spencer IV: Severe. Spencer V: 55 to 60. PLAN: 1. Recommend increasing patient's Effexor XR from 150 to 187.5 mg q.a.m. to help with symptoms of depression as well as cognition and anxiety reduction. 2. Begin trial of Seroquel 6.25 mg at bedtime also for clarity of thought, anxiety reduction, sleep initiation and maintenance and mood stability. 3. Other medications as dosed and prescribed by the patient's inpatient primary medical treatment team. 4. Recommend that the patient is medically stabilized if she needs additional resources to be discharged back to home of her own volition then those resources be explored and see if they can be put in place such as PACE or if she is able to go live with a family member as that was mentioned by the treatment team during report, that would also be a good option. 5. If the patient is unable to maintain chores out of her own home or with these options in place, then would recommend subsequent [facility] placement moving forward. 6. We will continue follow up with the patient on an as-needed basis while she remains on the inpatient Med-Surg unit at [facility] in [place], [place]. 7. We will follow up with the patient sooner if any complications in the interim. 8. Crisis plan is in place. MICHAEL /[id number]
[2019-07-06] MEDS: Cephalexin 500 MG Cap PO SCH ×5 (00:05→23:43)
[2019-07-06] MEDS: Ibuprofen 400 MG Tab PO PRN (02:08)
[2019-07-06] MEDS: Famotidine 20 MG Tab PO SCH (06:32)
[2019-07-06] MEDS: Trospium 20 MG Tab PO SCH ×2 (06:32→16:10)
[2019-07-06] MEDS: Enoxaparin 40 MG/0.4 ML Syringe SUBCUT SCH (08:49)
[2019-07-06] MEDS: Cholecalciferol (Vitamin D3) 25 MCG Tab PO SCH (08:52)
[2019-07-06] MEDS: Cyanocobalamin (Vitamin B12) 1,000 MCG Tab PO SCH (08:53)
[2019-07-06] MEDS: Magnesium Oxide 400 MG Tab PO SCH ×2 (08:54→21:21)
[2019-07-06] MEDS: Saccharomyces Boulardii (Probiotic) 250 MG Cap PO SCH (08:55)
[2019-07-06] MEDS: Venlafaxine 75 MG Cap.ER PO SCH (08:55)
[2019-07-06] MEDS: Metoprolol Succinate 50 MG Tab.ER PO SCH (08:56)
[2019-07-06] MEDS: Furosemide 20 MG Tab PO SCH (08:56)
[2019-07-06] MEDS: Venlafaxine 37.5 MG Cap.ER PO SCH (08:57)
--- NOTE | 2019-07-06 18:35 | PCM.PN ---
- General Info Date of Service: 07/06/19 Admission Dx/Problem (Free Text): Admission Diagnosis/Problem Admission Diagnosis/Problem UTI (urinary tract infection) due to urinary indwelling catheter Subjective Update: Patient is doing well with no new complaints. Moved her bowels and eating well. Functional Status: Reports: Pain Controlled - Review of Systems General: Reports: No Symptoms HEENT: Reports: No Symptoms Pulmonary: Reports: No Symptoms Cardiovascular: Reports: No Symptoms Neurological: Reports: No Symptoms Psychiatric: Reports: No Symptoms - Patient Data Vitals - Most Recent: Last Vital Signs Temp 97.5 F 07/06/19 08:53 Pulse 64 07/06/19 08:56 Resp 12 07/06/19 08:53 BP 139/62 07/06/19 08:56 Pulse Ox 95 07/06/19 08:53 Weight - Most Recent: 246 lb 6.4 oz I&O - Last 24 Hours: Intake & Output 07/06/19 07/06/19 07/06/19 06:59 14:59 22:59 Intake Total 500 340 820 Output Total 700 300 Balance -200 340 520 Med Orders - Current: Current Medications Albuterol (Proventil Hfa) 0 gm INH Q4H PRN PRN Reason: Shortness of Breath Albuterol/Ipratropium (Duoneb 3.0-0.5 Mg/3 Ml) 3 ml NEB Q4H PRN PRN Reason: Shortness Of Breath/wheezing Bisacodyl (Dulcolax) 5 mg PO DAILY PRN PRN Reason: Constipation Last Admin: 07/04/19 05:02 Dose: 5 mg Cephalexin (Keflex) 500 mg PO Q6HR [facility] Last Admin: 07/06/19 18:19 Dose: 500 mg Cholecalciferol (Vitamin D3) 50 mcg PO DAILY [facility] Last Admin: 07/06/19 08:52 Dose: 50 mcg Cyanocobalamin (Vitamin B12) 500 mcg PO DAILY [facility] Last Admin: 07/06/19 08:53 Dose: 500 mcg Docusate Sodium (Colace) 100 mg PO BID PRN PRN Reason: Constipation Last Admin: 07/04/19 05:02 Dose: 100 mg Enoxaparin Sodium (Lovenox) 40 mg SUBCUT DAILY [facility] Last Admin: 07/06/19 08:49 Dose: 40 mg Famotidine (Pepcid) 10 mg PO ACBREAKFAST [facility] Last Admin: 07/06/19 06:32 Dose: 10 mg Furosemide (Lasix) 20 mg PO DAILY [facility] Last Admin: 07/06/19 08:56 Dose: 20 mg Hydromorphone HCl (Dilaudid) 0.25 mg IVPUSH Q2H PRN PRN Reason: Pain (severe 7-10) Ibuprofen (Motrin) 400 mg PO Q6H PRN PRN Reason: fever/pain Last Admin: 07/06/19 02:08 Dose: 400 mg Magnesium Oxide (Magnesium Oxide) 400 mg PO BID [facility] Last Admin: 07/06/19 08:54 Dose: 400 mg Metoprolol Succinate (Toprol Xl) 50 mg PO DAILY [facility] Last Admin: 07/06/19 08:56 Dose: 50 mg Quetiapine Fumarate (Seroquel) 6.25 mg PO BEDTIME [facility] Saccharomyces Boulardii (Florastor) 250 mg PO DAILY [facility] Last Admin: 07/06/19 08:55 Dose: 250 mg Senna/Docusate Sodium (Senna Plus) 1 tab PO BID PRN PRN Reason: Constipation Last Admin: 07/03/19 06:39 Dose: 1 tab Temazepam (Restoril) 7.5 mg PO BEDTIME PRN PRN Reason: Sleep Last Admin: 07/03/19 20:16 Dose: 7.5 mg Trospium (Sanctura) 20 mg PO BIDAC [facility] Last Admin: 07/06/19 16:10 Dose: 20 mg Venlafaxine HCl (Effexor Xr) 150 mg PO DAILY [facility] Last Admin: 07/06/19 08:55 Dose: 150 mg Venlafaxine HCl (Effexor Xr) 37.5 mg PO DAILY [facility] Last Admin: 07/06/19 08:57 Dose: 37.5 mg Discontinued Medications Acetaminophen (Tylenol) 650 mg PO Q4H PRN PRN Reason: Pain (Mild 1-3)/fever Acetaminophen/Butalbital/Caffeine (Fioricet 325-50-40 Mg) 1 tab PO Q6H PRN PRN Reason: Headache Last Admin: 07/01/19 10:01 Dose: 1 tab Hydrocodone Bitart/Acetaminophen ([place] 325-5 Mg) 1 tab PO Q4H PRN PRN Reason: Pain (moderate 4-6) Bisacodyl (Dulcolax) 10 mg RECTAL ONETIME ONE Stop: 07/04/19 16:43 Last Admin: 07/04/19 16:49 Dose: 10 mg Cephalexin (Keflex) 500 mg PO BID [facility] Last Admin: 07/05/19 09:48 Dose: 500 mg Doxepin HCl (Sinequan) 10 mg PO BEDTIME [facility] Last Admin: 07/01/19 20:57 Dose: Not Given Magnesium Sulfate 2 gm/ Premix 50 mls @ 50 mls/hr IV ONETIME ONE Stop: 06/30/19 21:35 Last Admin: 06/30/19 21:55 Dose: 50 mls/hr Ceftriaxone Sodium 1 gm/ (Sodium Chloride) 100 mls @ 200 mls/hr IV ONETIME STA Stop: 06/30/19 21:36 Last Admin: 06/30/19 21:23 Dose: 200 mls/hr Sodium Chloride (Normal Saline) 1,000 mls @ 150 mls/hr IV ASDIRECTED [facility] Last Infusion: 07/01/19 14:00 Dose: Infused Magnesium Sulfate 2 gm/ Premix 50 mls @ 25 mls/hr IV ONETIME ONE Stop: 07/01/19 00:51 Last Admin: 07/01/19 00:08 Dose: 25 mls/hr Ceftriaxone Sodium 1 gm/ (Sodium Chloride) 100 mls @ 200 mls/hr IV Q24H [facility] Last Admin: 07/02/19 21:12 Dose: 200 mls/hr Promethazine HCl 6.25 mg/ (Sodium Chloride) 50.25 mls @ 100 mls/hr IV Q6H PRN PRN Reason: Nausea/Vomiting Potassium Chloride 10 meq/ (Premix) 100 mls @ 100 mls/hr IV Q1H [facility] Stop: 07/01/19 05:29 Last Admin: 07/01/19 05:45 Dose: 100 mls/hr Sodium Chloride (Normal Saline) 1,000 mls @ 50 mls/hr IV ASDIRECTED [facility] Sodium Chloride (Normal Saline) 1,000 mls @ 25 mls/hr IV ASDIRECTED [facility] Last Admin: 07/05/19 03:55 Dose: 25 mls/hr Magnesium Sulfate 2 gm/ Premix 50 mls @ 25 mls/hr IV ONETIME ONE Stop: 07/01/19 23:08 Last Admin: 07/01/19 21:52 Dose: 25 mls/hr Magnesium Sulfate 2 gm/ Premix 50 mls @ 25 mls/hr IV ONETIME ONE Stop: 07/03/19 22:05 Last Admin: 07/03/19 20:16 Dose: 25 mls/hr Magnesium Sulfate 2 gm/ Premix 50 mls @ 25 mls/hr IV ONETIME ONE Stop: 07/04/19 11:59 Last Admin: 07/04/19 11:44 Dose: 25 mls/hr Magnesium Sulfate 2 gm/ Premix 50 mls @ 25 mls/hr IV ONETIME ONE Stop: 07/05/19 11:11 Last Admin: 07/05/19 09:43 Dose: 25 mls/hr Ondansetron HCl (Zofran) 4 mg IV Q6H PRN PRN Reason: Nausea/Vomiting Pantoprazole Sodium (Protonix) 40 mg PO BID@0700,1600 [facility] Last Admin: 07/03/19 06:38 Dose: 40 mg Potassium Chloride (Klor-Con 10) 60 meq PO ONETIME ONE Stop: 06/30/19 23:02 Last Admin: 07/01/19 00:08 Dose: 60 meq Potassium Chloride (Klor-Con M20) 60 meq PO ONETIME ONE Stop: 07/01/19 07:15 Last Admin: 07/01/19 10:50 Dose: Not Given Potassium Chloride (Klor-Con M20) 60 meq PO ONETIME ONE Stop: 07/01/19 10:16 Last Admin: 07/01/19 11:06 Dose: 60 meq Potassium Chloride (Klor-Con M20) 20 meq PO ONETIME ONE Stop: 07/05/19 09:13 Last Admin: 07/05/19 09:47 Dose: 20 meq Venlafaxine HCl (Effexor Xr) 150 mg PO DAILY [facility] Last Admin: 07/05/19 09:47 Dose: 150 mg - Exam Quality Assessment: No: Supplemental Oxygen General: Alert, Oriented HEENT: Pupils Equal, Mucous Membr. Moist/[place] Neck: Supple Lungs: Clear to Auscultation, Normal Respiratory Effort Cardiovascular: Regular Rate, Regular Rhythm GI/Abdominal Exam: Normal Bowel Sounds, No Distention Extremities: Pedal Edema, Redness (bilateral extremity erythema has improved from yesterday.) - Problem List Review Problem List Initiated/Reviewed/Updated: Yes - My Orders Last 24 Hours: My Active Orders 07/05/19 19:45 cephALEXin [Keflex] 500 mg PO Q6HR - Plan Plan:: Assessment: Acute: UTI - Diagnosed on previous admission - 2/2 E. coli - Keflex 500 mg 4 times a day - CRP is 16.2-->18.4--> 11.5-->6.1 Recurrent Fall - Again found on the bathroom by a neighbor this would be her a recurrent episode - She is likely non-complaint Renal Insufficiency, At baseline - Cr of 1.3-->1.2-->1.1-->1.1 with BUN of 29-->28-->29-->31 - improved Transaminitis with Hyperbilirubinemia, Improving - AST of 135-->77-->58-->44, ALT of 156-->83-->69-->53 - Alk phos of 156-->394-->343 with Total Bilirubin of 1.3-->1.5-->0.9-->0.7-- >0.7 - She likely has fatty liver disease (she is morbidly obese) - GGT: 81 - Liver U/S: Single Large gallstone within the gallbladder w/o gallbladder wall thickening or biliary duct dilatation - Hep C Abs negative - Consult Dr. Hdz for further evaluation: recommends conservative for now with HIDA scan - HIDA scan results: Poor filling of the gallbladder but no evidence of cystic duct obstruction. Findings may relate to chronic cholecystitis. Generalized Weakness - 2/2 Metabolic Derangement and Recent Fall - Continue PT/OT treatment - Vit D level normal Morbid Obesity - Dietary consult for weight management - BMI of 48 Failure to Thrive - Patient just recently discharged from the hospital - Has HHS but failed to take care herself - She has no family support locally - States her sister from [place] will be coming down to be with her but with unknown duration of stay - She needs 24hr care or NH placement Single Large gallstone within the gallbladder w/o gallbladder wall thickening or biliary duct dilatation - Asymptomatic - She is drinking and eating well - Consulted General Surgery Moderate Cognitive Impairment - VETERANS' COORDINATOR note: "Recommend VETERANS' COORDINATOR Tx at next level of care, preferably an [facility] or SNF. If patient insists on remaining in her current living situation with HH, recommend referral to OT for cognitive compensatory strategies" - Ask CM/SW to assess discharge care plan - She wants to go home but she may not be safe to alone since she has no home support - She went home last night and after a couple of days she back in the hospital for similar scenario - May need to get a hold of her DPOA (unsure) and make her/him aware of this important finding Cellulitis right lower extremity with open wound - Continue Keflex 500 mg 4 times a day - Dress wound - Monitor closely Resolved: S/p Hypomagnesemia - Mg 1.3; 1.1 on recent admission-->1.8-->1.9-->1.7 - Replete and monitor S/p Hypokalemia - K of 2.9-->3.4-->3.7--3.5 - Replete and monitor Chronic: Impaired Vision, HTN, Asthma, OA/DJD, Stasis Dermatitis, Anxiety, Gait Instability S/p Fall and Morbid Obesity Plan: She remains clinically stable Routine AM labs AHA diet DVT/GI Prophylaxis Fall Precautions May need Psych eval PT/OT to assess and treat; they recommend SNF with PT/OT SW/CM for d/c planing patient's sister is coming to town. She would like to go home with her sister instead of a chcf facility. Code status: full Additional orders as above LOS > 96hrs due to slow response to treatment and placement issues
[2019-07-06] MEDS: QUEtiapine 25 MG Tab PO SCH (21:22)
[2019-07-07] MEDS: Famotidine 20 MG Tab PO SCH (05:42)
[2019-07-07] MEDS: Trospium 20 MG Tab PO SCH ×2 (05:43→21:56)
[2019-07-07] MEDS: Cephalexin 500 MG Cap PO SCH ×4 (05:43→22:09)
[2019-07-07] MEDS: Bisacodyl 5 MG Tab PO PRN (05:43)
[2019-07-07] MEDS: Saccharomyces Boulardii (Probiotic) 250 MG Cap PO SCH (09:30)
[2019-07-07] MEDS: Venlafaxine 75 MG Cap.ER PO SCH (09:30)
[2019-07-07] MEDS: Venlafaxine 37.5 MG Cap.ER PO SCH (09:30)
[2019-07-07] MEDS: Cyanocobalamin (Vitamin B12) 1,000 MCG Tab PO SCH (09:30)
[2019-07-07] MEDS: Cholecalciferol (Vitamin D3) 25 MCG Tab PO SCH (09:31)
[2019-07-07] MEDS: Metoprolol Succinate 50 MG Tab.ER PO SCH (09:31)
[2019-07-07] MEDS: Magnesium Oxide 400 MG Tab PO SCH ×2 (09:31→22:06)
[2019-07-07] MEDS: Enoxaparin 40 MG/0.4 ML Syringe SUBCUT SCH (09:32)
[2019-07-07] MEDS: Furosemide 20 MG Tab PO SCH (09:32)
[2019-07-07] MEDS ORDERED: Magnesium Sulfate/Water 4 GM in Premix Bag 1 BAG IV ONE (10:25)
[2019-07-07] MEDS ORDERED: Potassium Chloride 20 MEQ Tab.ER PO ONE (10:27)
--- NOTE | 2019-07-07 14:28 | PCM.PN ---
- General Info Date of Service: 07/07/19 Admission Dx/Problem (Free Text): Admission Diagnosis/Problem Admission Diagnosis/Problem UTI (urinary tract infection) due to urinary indwelling catheter Subjective Update: patient is doing well without any complaints. - Review of Systems General: Reports: No Symptoms HEENT: Reports: No Symptoms Pulmonary: Reports: No Symptoms Cardiovascular: Reports: No Symptoms Gastrointestinal: Reports: No Symptoms - Patient Data Vitals - Most Recent: Last Vital Signs Temp 98.1 F 07/07/19 07:55 Pulse 68 07/07/19 09:31 Resp 14 07/07/19 07:55 BP 153/64 H 07/07/19 09:31 Pulse Ox 92 L 07/07/19 07:55 Weight - Most Recent: 241 lb 9.6 oz I&O - Last 24 Hours: Intake & Output 07/06/19 07/07/19 07/07/19 22:59 06:59 14:59 Intake Total 1000 400 Output Total 300 1250 Balance 700 -850 Lab Results Last 24 Hours: Laboratory Results - last 24 hr 07/07/19 07/07/19 Range/Units 05:35 05:35 WBC 7.32 (3.98-10.04) K/mm3 RBC 3.72 L (3.98-5.22) M/mm3 Hgb 11.3 (11.2-15.7) gm/dl Hct 35.8 (34.1-44.9) % MCV 96.2 H (79.4-94.8) fl MCH 30.4 (25.6-32.2) pg MCHC 31.6 L (32.2-35.5) g/dl RDW Std Deviation 50.4 H (36.4-46.3) fL Plt Count 217 (182-369) K/mm3 MPV 10.6 (9.4-12.3) fl Neut % (Auto) 34.7 (34.0-71.1) % Lymph % (Auto) 48.1 (19.3-51.7) % [place] % (Auto) 13.5 H (4.7-12.5) % Eos % (Auto) 3.1 (0.7-5.8) Baso % (Auto) 0.3 (0.1-1.2) % Neut # (Auto) 2.54 (1.56-6.13) K/mm3 Lymph # (Auto) 3.52 (1.18-3.74) K/mm3 [place] # (Auto) 0.99 H (0.24-0.36) K/mm3 Eos # (Auto) 0.23 (0.04-0.36) K/mm3 Baso # (Auto) 0.02 (0.01-0.08) K/mm3 Sodium 140 (136-145) mEq/L Potassium 3.4 L (3.5-5.1) mEq/L Chloride 102 (98-107) mEq/L Carbon Dioxide 34 H (21-32) mEq/L Anion Gap 7.4 (5-15) BUN 24 H (7-18) mg/dL Creatinine 1.1 H (0.55-1.02) mg/dL Est Cr Clr Drug Dosing 39.70 mL/min Estimated GFR (MDRD) 48 (>60) mL/min BUN/Creatinine Ratio 21.8 H (14-18) Glucose 98 (83-115) mg/dL Calcium 9.4 (8.5-10.1) mg/dL Magnesium 1.5 L (1.8-2.4) mg/dl Total Bilirubin 0.6 (0.2-1.0) mg/dL AST 27 (15-37) U/L ALT 33 (14-59) U/L Alkaline Phosphatase 242 H (46-116) U/L Total Protein 5.4 L (6.4-8.2) g/dl Albumin 2.7 L (3.4-5.0) g/dl Globulin 2.7 gm/dL Albumin/Globulin Ratio 1.0 (1-2) Med Orders - Current: Current Medications Albuterol (Proventil Hfa) 0 gm INH Q4H PRN PRN Reason: Shortness of Breath Albuterol/Ipratropium (Duoneb 3.0-0.5 Mg/3 Ml) 3 ml NEB Q4H PRN PRN Reason: Shortness Of Breath/wheezing Bisacodyl (Dulcolax) 5 mg PO DAILY PRN PRN Reason: Constipation Last Admin: 07/07/19 05:43 Dose: 5 mg Cephalexin (Keflex) 500 mg PO Q6HR [facility] Last Admin: 07/07/19 13:01 Dose: 500 mg Cholecalciferol (Vitamin D3) 50 mcg PO DAILY [facility] Last Admin: 07/07/19 09:31 Dose: 50 mcg Cyanocobalamin (Vitamin B12) 500 mcg PO DAILY [facility] Last Admin: 07/07/19 09:30 Dose: 500 mcg Docusate Sodium (Colace) 100 mg PO BID PRN PRN Reason: Constipation Last Admin: 07/04/19 05:02 Dose: 100 mg Enoxaparin Sodium (Lovenox) 40 mg SUBCUT DAILY [facility] Last Admin: 07/07/19 09:32 Dose: 40 mg Famotidine (Pepcid) 10 mg PO ACBREAKFAST [facility] Last Admin: 07/07/19 05:42 Dose: 10 mg Furosemide (Lasix) 20 mg PO DAILY [facility] Last Admin: 07/07/19 09:32 Dose: 20 mg Hydromorphone HCl (Dilaudid) 0.25 mg IVPUSH Q2H PRN PRN Reason: Pain (severe 7-10) Magnesium Sulfate 4 gm/ Premix 50 mls @ 12.5 mls/hr IV ONETIME ONE Stop: 07/07/19 14:24 Last Admin: 07/07/19 11:02 Dose: 12.5 mls/hr Ibuprofen (Motrin) 400 mg PO Q6H PRN PRN Reason: fever/pain Last Admin: 07/06/19 02:08 Dose: 400 mg Magnesium Oxide (Magnesium Oxide) 400 mg PO BID [facility] Last Admin: 07/07/19 09:31 Dose: 400 mg Metoprolol Succinate (Toprol Xl) 50 mg PO DAILY [facility] Last Admin: 07/07/19 09:31 Dose: 50 mg Quetiapine Fumarate (Seroquel) 6.25 mg PO BEDTIME [facility] Last Admin: 07/06/19 21:22 Dose: 6.25 mg Saccharomyces Boulardii (Florastor) 250 mg PO DAILY [facility] Last Admin: 07/07/19 09:30 Dose: 250 mg Senna/Docusate Sodium (Senna Plus) 1 tab PO BID PRN PRN Reason: Constipation Last Admin: 07/03/19 06:39 Dose: 1 tab Temazepam (Restoril) 7.5 mg PO BEDTIME PRN PRN Reason: Sleep Last Admin: 07/03/19 20:16 Dose: 7.5 mg [facility]ium (Sanctura) [facility] Last Admin: 07/07/19 05:43 Dose: 20 mg Venlafaxine HCl (Effexor Xr) 150 mg PO DAILY [facility] Last Admin: 07/07/19 09:30 Dose: 150 mg Venlafaxine HCl (Effexor Xr) 37.5 mg PO DAILY [facility] Last Admin: 07/07/19 09:30 Dose: 37.5 mg Discontinued Medications Acetaminophen (Tylenol) 650 mg PO Q4H PRN PRN Reason: Pain (Mild 1-3)/fever Acetaminophen/Butalbital/Caffeine (Fioricet 325-50-40 Mg) 1 tab PO Q6H PRN PRN Reason: Headache Last Admin: 07/01/19 10:01 Dose: 1 tab Hydrocodone Bitart/Acetaminophen ([place] 325-5 Mg) 1 tab PO Q4H PRN PRN Reason: Pain (moderate 4-6) Bisacodyl (Dulcolax) 10 mg RECTAL ONETIME ONE Stop: 07/04/19 16:43 Last Admin: 07/04/19 16:49 Dose: 10 mg Cephalexin (Keflex) 500 mg PO BID [facility] Last Admin: 07/05/19 09:48 Dose: 500 mg Doxepin HCl (Sinequan) 10 mg PO BEDTIME [facility] Last Admin: 07/01/19 20:57 Dose: Not Given Magnesium Sulfate 2 gm/ Premix 50 mls @ 50 mls/hr IV ONETIME ONE Stop: 06/30/19 21:35 Last Admin: 06/30/19 21:55 Dose: 50 mls/hr Ceftriaxone Sodium 1 gm/ (Sodium Chloride) 100 mls @ 200 mls/hr IV ONETIME STA Stop: 06/30/19 21:36 Last Admin: 06/30/19 21:23 Dose: 200 mls/hr Sodium Chloride (Normal Saline) 1,000 mls @ 150 mls/hr IV ASDIRECTED [facility] Last Infusion: 07/01/19 14:00 Dose: Infused Magnesium Sulfate 2 gm/ Premix 50 mls @ 25 mls/hr IV ONETIME ONE Stop: 07/01/19 00:51 Last Admin: 07/01/19 00:08 Dose: 25 mls/hr Ceftriaxone Sodium 1 gm/ (Sodium Chloride) 100 mls @ 200 mls/hr IV Q24H [facility] Last Admin: 07/02/19 21:12 Dose: 200 mls/hr Promethazine HCl 6.25 mg/ (Sodium Chloride) 50.25 mls @ 100 mls/hr IV Q6H PRN PRN Reason: Nausea/Vomiting Potassium Chloride 10 meq/ (Premix) 100 mls @ 100 mls/hr IV Q1H [facility] Stop: 07/01/19 05:29 Last Admin: 07/01/19 05:45 Dose: 100 mls/hr Sodium Chloride (Normal Saline) 1,000 mls @ 50 mls/hr IV ASDIRECTED [facility] Sodium Chloride (Normal Saline) 1,000 mls @ 25 mls/hr IV ASDIRECTED [facility] Last Admin: 07/05/19 03:55 Dose: 25 mls/hr Magnesium Sulfate 2 gm/ Premix 50 mls @ 25 mls/hr IV ONETIME ONE Stop: 07/01/19 23:08 Last Admin: 07/01/19 21:52 Dose: 25 mls/hr Magnesium Sulfate 2 gm/ Premix 50 mls @ 25 mls/hr IV ONETIME ONE Stop: 07/03/19 22:05 Last Admin: 07/03/19 20:16 Dose: 25 mls/hr Magnesium Sulfate 2 gm/ Premix 50 mls @ 25 mls/hr IV ONETIME ONE Stop: 07/04/19 11:59 Last Admin: 07/04/19 11:44 Dose: 25 mls/hr Magnesium Sulfate 2 gm/ Premix 50 mls @ 25 mls/hr IV ONETIME ONE Stop: 07/05/19 11:11 Last Admin: 07/05/19 09:43 Dose: 25 mls/hr Ondansetron HCl (Zofran) 4 mg IV Q6H PRN PRN Reason: Nausea/Vomiting Pantoprazole Sodium (Protonix) 40 mg PO BID@0700,1600 [facility] Last Admin: 07/03/19 06:38 Dose: 40 mg Potassium Chloride (Klor-Con 10) 60 meq PO ONETIME ONE Stop: 06/30/19 23:02 Last Admin: 07/01/19 00:08 Dose: 60 meq Potassium Chloride (Klor-Con M20) 60 meq PO ONETIME ONE Stop: 07/01/19 07:15 Last Admin: 07/01/19 10:50 Dose: Not Given Potassium Chloride (Klor-Con M20) 60 meq PO ONETIME ONE Stop: 07/01/19 10:16 Last Admin: 07/01/19 11:06 Dose: 60 meq Potassium Chloride (Klor-Con M20) 20 meq PO ONETIME ONE Stop: 07/05/19 09:13 Last Admin: 07/05/19 09:47 Dose: 20 meq Potassium Chloride (Klor-Con M20) 40 meq PO ONETIME ONE Stop: 07/07/19 10:28 Last Admin: 07/07/19 11:02 Dose: 40 meq Venlafaxine HCl (Effexor Xr) 150 mg PO DAILY [facility] Last Admin: 07/05/19 09:47 Dose: 150 mg - Exam Quality Assessment: No: Supplemental Oxygen General: Alert, Oriented HEENT: Pupils Equal, Pupils Reactive, EOMI, Mucous Membr. Moist/[place] Lungs: Clear to Auscultation, Normal Respiratory Effort Cardiovascular: Regular Rate, Regular Rhythm GI/Abdominal Exam: Normal Bowel Sounds, Soft, Non-Tender, No Organomegaly, No Distention, No Abnormal Bruit, No Mass, Pelvis Stable Extremities: Pedal Edema (2+), Other (decreased redness and warmth bilaterally with significant improvement in the right leg.) - Problem List Review Problem List Initiated/Reviewed/Updated: Yes - My Orders Last 24 Hours: My Active Orders 07/07/19 10:25 Magnesium Sulfate/Water [Magnesium Sulfate in Water Premix] 4 gm Premix Bag 1 bag IV ONETIME 07/08/19 05:11 CBC WITH AUTO DIFF [HEME] AM CMP [COMPREHENSIVE METABOLIC PN,CMP] [CHEM] AM MAGNESIUM [CHEM] AM 07/09/19 05:11 CBC WITH AUTO DIFF [HEME] AM CMP [COMPREHENSIVE METABOLIC PN,CMP] [CHEM] AM MAGNESIUM [CHEM] AM 07/10/19 05:11 CBC WITH AUTO DIFF [HEME] AM CMP [COMPREHENSIVE METABOLIC PN,CMP] [CHEM] AM MAGNESIUM [CHEM] AM - Plan Plan:: Assessment: Acute: UTI - Diagnosed on previous admission - 11/11 E. coli - Keflex 500 mg 4 times a day - CRP is 16.2-->18.4--> 11.5-->6.1 Recurrent Fall - Again found on the bathroom by a neighbor this would be her a recurrent episode - She is likely non-complaint Renal Insufficiency, At baseline - Cr of 1.3-->1.2-->1.1-->1.1-->1.1 with BUN of 29-->28-->29-->31-->24 - improved Dependent edema in LE - improving - mild increase in bicarbonate of 34. This could be secondary to volume contraction. - Hold lasix tomorrow. Transaminitis with Hyperbilirubinemia, Improving - AST of 135-->77-->58-->44-->27, ALT of 156-->83-->69-->53-->33 - Alk phos of 156-->394-->343-->242 with Total Bilirubin of 1.3-->1.5-->0.9-- >0.7-->0.7 - She likely has fatty liver disease (she is morbidly obese) - GGT: 81 - Liver U/S: Single Large gallstone within the gallbladder w/o gallbladder wall thickening or biliary duct dilatation - Hep C Abs negative - Consult Dr. Hdz for further evaluation: recommends conservative for now with HIDA scan - HIDA scan results: Poor filling of the gallbladder but no evidence of cystic duct obstruction. Findings may relate to chronic cholecystitis. Generalized Weakness - 2/2 Metabolic Derangement and Recent Fall - Continue PT/OT treatment - Vit D level normal Morbid Obesity - Dietary consult for weight management - BMI of 48 Failure to Thrive - Patient just recently discharged from the hospital - Has HHS but failed to take care herself - She has no family support locally - States her sister from [place] will be coming down to be with her but with unknown duration of stay - She needs 24hr care or NH placement Single Large gallstone within the gallbladder w/o gallbladder wall thickening or biliary duct dilatation - Asymptomatic - She is drinking and eating well - Consulted General Surgery Moderate Cognitive Impairment - INVISIBLE BRACES ORTHODONTIST note: "Recommend INVISIBLE BRACES ORTHODONTIST Tx at next level of care, preferably an [facility] or SNF. If patient insists on remaining in her current living situation with HH, recommend referral to OT for cognitive compensatory strategies" - Ask CM/SW to assess discharge care plan - She wants to go home but she may not be safe to alone since she has no home support - She went home last night and after a couple of days she back in the hospital for similar scenario - May need to get a hold of her DPOA (unsure) and make her/him aware of this important finding Cellulitis right lower extremity with open wound - Continue Keflex 500 mg 4 times a day - improving - Dress wound - Monitor closely Hypomagnesemia - Mg 1.3; 1.1 on recent admission-->1.8-->1.9-->1.7-->1.5 - Replete and monitor Hypokalemia - K of 2.9-->3.4-->3.7-->3.5-->3.4 - Replete and monitor Chronic: Impaired Vision, HTN, Asthma, OA/DJD, Stasis Dermatitis, Anxiety, Gait Instability S/p Fall and Morbid Obesity Plan: She remains clinically stable Routine AM labs AHA diet DVT/GI Prophylaxis Fall Precautions May need Psych eval PT/OT to assess and treat; they recommend SNF with PT/OT SW/CM for d/c planing patient's sister is coming to town on Tuesday. She would like to go home with her sister instead of a care home facility. Code status: full Additional orders as above LOS > 96hrs due to slow response to treatment and placement issues
[2019-07-07] MEDS: QUEtiapine 25 MG Tab PO SCH (22:07)
[2019-07-08] MEDS: Cephalexin 500 MG Cap PO SCH ×5 (01:52→23:49)
[2019-07-08] MEDS: Ibuprofen 400 MG Tab PO PRN ×3 (04:57→23:49)
[2019-07-08] MEDS: Famotidine 20 MG Tab PO SCH (04:59)
[2019-07-08] MEDS: Bisacodyl 5 MG Tab PO PRN (04:59)
[2019-07-08] MEDS: Trospium 20 MG Tab PO SCH ×2 (05:00→17:07)
[2019-07-08] MEDS ORDERED: Magnesium Hydroxide 400 MG/5 ML Susp 30 ML Cup PO ONE (06:00)
[2019-07-08] MEDS: Venlafaxine 75 MG Cap.ER PO SCH (08:06)
[2019-07-08] MEDS: Saccharomyces Boulardii (Probiotic) 250 MG Cap PO SCH (08:06)
[2019-07-08] MEDS: Furosemide 20 MG Tab PO SCH (08:06)
[2019-07-08] MEDS: Cholecalciferol (Vitamin D3) 25 MCG Tab PO SCH (08:06)
[2019-07-08] MEDS: Metoprolol Succinate 50 MG Tab.ER PO SCH (08:06)
[2019-07-08] MEDS: Magnesium Oxide 400 MG Tab PO SCH ×2 (08:06→21:24)
[2019-07-08] MEDS: Enoxaparin 40 MG/0.4 ML Syringe SUBCUT SCH (08:07)
[2019-07-08] MEDS: Cyanocobalamin (Vitamin B12) 1,000 MCG Tab PO SCH (08:08)
[2019-07-08] MEDS: Venlafaxine 37.5 MG Cap.ER PO SCH (08:08)
--- NOTE | 2019-07-08 14:35 | PCM.PN ---
- General Info Date of Service: 07/08/19 Admission Dx/Problem (Free Text): Admission Diagnosis/Problem Admission Diagnosis/Problem UTI (urinary tract infection) due to urinary indwelling catheter Subjective Update: patient is doing well without any complaints. Functional Status: Reports: Pain Controlled - Review of Systems General: Reports: No Symptoms HEENT: Reports: No Symptoms Pulmonary: Reports: No Symptoms Cardiovascular: Reports: No Symptoms Gastrointestinal: Reports: No Symptoms Genitourinary: Reports: No Symptoms - Patient Data Vitals - Most Recent: Last Vital Signs Temp 98.2 F 07/08/19 08:03 Pulse 66 07/08/19 08:06 Resp 16 07/08/19 08:03 BP 144/98 H 07/08/19 08:06 Pulse Ox 90 L 07/08/19 08:03 Weight - Most Recent: 239 lb 6.4 oz I&O - Last 24 Hours: Intake & Output 07/07/19 07/08/19 07/08/19 22:59 06:59 14:59 Intake Total 770 650 Output Total 1400 1500 Balance -630 -850 Lab Results Last 24 Hours: Laboratory Results - last 24 hr 07/08/19 07/08/19 Range/Units 04:40 04:40 WBC 8.71 (3.98-10.04) K/mm3 RBC 3.80 L (3.98-5.22) M/mm3 Hgb 11.7 (11.2-15.7) gm/dl Hct 36.8 (34.1-44.9) % MCV 96.8 H (79.4-94.8) fl MCH 30.8 (25.6-32.2) pg MCHC 31.8 L (32.2-35.5) g/dl RDW Std Deviation 50.5 H (36.4-46.3) fL Plt Count 233 (182-369) K/mm3 MPV 10.3 (9.4-12.3) fl Neut % (Auto) 37.4 (34.0-71.1) % Lymph % (Auto) 45.7 (19.3-51.7) % [place] % (Auto) 13.8 H (4.7-12.5) % Eos % (Auto) 2.5 (0.7-5.8) Baso % (Auto) 0.3 (0.1-1.2) % Neut # (Auto) 3.25 (1.56-6.13) K/mm3 Lymph # (Auto) 3.98 H (1.18-3.74) K/mm3 [place] # (Auto) 1.20 H (0.24-0.36) K/mm3 Eos # (Auto) 0.22 (0.04-0.36) K/mm3 Baso # (Auto) 0.03 (0.01-0.08) K/mm3 Sodium 139 (136-145) mEq/L Potassium 3.7 (3.5-5.1) mEq/L Chloride 100 (98-107) mEq/L Carbon Dioxide 32 (21-32) mEq/L Anion Gap 10.7 (5-15) BUN 25 H (7-18) mg/dL Creatinine 1.2 H (0.55-1.02) mg/dL Est Cr Clr Drug Dosing 36.39 mL/min Estimated GFR (MDRD) 44 (>60) mL/min BUN/Creatinine Ratio 20.8 H (14-18) Glucose 99 (83-115) mg/dL Calcium 9.4 (8.5-10.1) mg/dL Magnesium 1.9 (1.8-2.4) mg/dl Total Bilirubin 0.5 (0.2-1.0) mg/dL AST 24 (15-37) U/L ALT 26 (14-59) U/L Alkaline Phosphatase 217 H (46-116) U/L Total Protein 5.5 L (6.4-8.2) g/dl Albumin 2.8 L (3.4-5.0) g/dl Globulin 2.7 gm/dL Albumin/Globulin Ratio 1.0 (1-2) Med Orders - Current: Current Medications Albuterol (Proventil Hfa) 0 gm INH Q4H PRN PRN Reason: Shortness of Breath Albuterol/Ipratropium (Duoneb 3.0-0.5 Mg/3 Ml) 3 ml NEB Q4H PRN PRN Reason: Shortness Of Breath/wheezing Bisacodyl (Dulcolax) 5 mg PO DAILY PRN PRN Reason: Constipation Last Admin: 07/08/19 04:59 Dose: 5 mg Cephalexin (Keflex) 500 mg PO Q6HR [facility] Last Admin: 07/08/19 14:07 Dose: 500 mg Cholecalciferol (Vitamin D3) 50 mcg PO DAILY [facility] Last Admin: 07/08/19 08:06 Dose: 50 mcg Cyanocobalamin (Vitamin B12) 500 mcg PO DAILY [facility] Last Admin: 07/08/19 08:08 Dose: 500 mcg Docusate Sodium (Colace) 100 mg PO BID PRN PRN Reason: Constipation Last Admin: 07/04/19 05:02 Dose: 100 mg Enoxaparin Sodium (Lovenox) 40 mg SUBCUT DAILY [facility] Last Admin: 07/08/19 08:07 Dose: 40 mg Famotidine (Pepcid) 10 mg PO ACBREAKFAST [facility] Last Admin: 07/08/19 04:59 Dose: 10 mg Furosemide (Lasix) 20 mg PO DAILY [facility] Last Admin: 07/08/19 08:06 Dose: 20 mg Hydromorphone HCl (Dilaudid) 0.25 mg IVPUSH Q2H PRN PRN Reason: Pain (severe 7-10) Ibuprofen (Motrin) 400 mg PO Q6H PRN PRN Reason: fever/pain Last Admin: 07/08/19 10:29 Dose: 400 mg Magnesium Oxide (Magnesium Oxide) 400 mg PO BID [facility] Last Admin: 07/08/19 08:06 Dose: 400 mg Metoprolol Succinate (Toprol Xl) 50 mg PO DAILY [facility] Last Admin: 07/08/19 08:06 Dose: 50 mg Quetiapine Fumarate (Seroquel) 6.25 mg PO BEDTIME [facility] Last Admin: 07/07/19 22:07 Dose: 6.25 mg Saccharomyces Boulardii (Florastor) 250 mg PO DAILY [facility] Last Admin: 07/08/19 08:06 Dose: 250 mg Senna/Docusate Sodium (Senna Plus) 1 tab PO BID PRN PRN Reason: Constipation Last Admin: 07/08/19 04:58 Dose: 1 tab Temazepam (Restoril) 7.5 mg PO BEDTIME PRN PRN Reason: Sleep Last Admin: 07/03/19 20:16 Dose: 7.5 mg Trospium (Sanctura) 20 mg PO BIDAC [facility] Last Admin: 07/08/19 05:00 Dose: 20 mg Venlafaxine HCl (Effexor Xr) 150 mg PO DAILY [facility] Last Admin: 07/08/19 08:06 Dose: 150 mg Venlafaxine HCl (Effexor Xr) 37.5 mg PO DAILY [facility] Last Admin: 07/08/19 08:08 Dose: 37.5 mg Discontinued Medications Acetaminophen (Tylenol) 650 mg PO Q4H PRN PRN Reason: Pain (Mild 1-3)/fever Acetaminophen/Butalbital/Caffeine (Fioricet 325-50-40 Mg) 1 tab PO Q6H PRN PRN Reason: Headache Last Admin: 07/01/19 10:01 Dose: 1 tab Hydrocodone Bitart/Acetaminophen ([place] 325-5 Mg) 1 tab PO Q4H PRN PRN Reason: Pain (moderate 4-6) Bisacodyl (Dulcolax) 10 mg RECTAL ONETIME ONE Stop: 07/04/19 16:43 Last Admin: 07/04/19 16:49 Dose: 10 mg Cephalexin (Keflex) 500 mg PO BID [facility] Last Admin: 07/05/19 09:48 Dose: 500 mg Doxepin HCl (Sinequan) 10 mg PO BEDTIME [facility] Last Admin: 07/01/19 20:57 Dose: Not Given Magnesium Sulfate 2 gm/ Premix 50 mls @ 50 mls/hr IV ONETIME ONE Stop: 06/30/19 21:35 Last Admin: 06/30/19 21:55 Dose: 50 mls/hr Ceftriaxone Sodium 1 gm/ (Sodium Chloride) 100 mls @ 200 mls/hr IV ONETIME STA Stop: 06/30/19 21:36 Last Admin: 06/30/19 21:23 Dose: 200 mls/hr Sodium Chloride (Normal Saline) 1,000 mls @ 150 mls/hr IV ASDIRECTED [facility] Last Infusion: 07/01/19 14:00 Dose: Infused Magnesium Sulfate 2 gm/ Premix 50 mls @ 25 mls/hr IV ONETIME ONE Stop: 07/01/19 00:51 Last Admin: 07/01/19 00:08 Dose: 25 mls/hr Ceftriaxone Sodium 1 gm/ (Sodium Chloride) 100 mls @ 200 mls/hr IV Q24H [facility] Last Admin: 07/02/19 21:12 Dose: 200 mls/hr Promethazine HCl 6.25 mg/ (Sodium Chloride) 50.25 mls @ 100 mls/hr IV Q6H PRN PRN Reason: Nausea/Vomiting Potassium Chloride 10 meq/ (Premix) 100 mls @ 100 mls/hr IV Q1H [facility] Stop: 07/01/19 05:29 Last Admin: 07/01/19 05:45 Dose: 100 mls/hr Sodium Chloride (Normal Saline) 1,000 mls @ 50 mls/hr IV ASDIRECTED [facility] Sodium Chloride (Normal Saline) 1,000 mls @ 25 mls/hr IV ASDIRECTED [facility] Last Admin: 07/05/19 03:55 Dose: 25 mls/hr Magnesium Sulfate 2 gm/ Premix 50 mls @ 25 mls/hr IV ONETIME ONE Stop: 07/01/19 23:08 Last Admin: 07/01/19 21:52 Dose: 25 mls/hr Magnesium Sulfate 2 gm/ Premix 50 mls @ 25 mls/hr IV ONETIME ONE Stop: 07/03/19 22:05 Last Admin: 07/03/19 20:16 Dose: 25 mls/hr Magnesium Sulfate 2 gm/ Premix 50 mls @ 25 mls/hr IV ONETIME ONE Stop: 07/04/19 11:59 Last Admin: 07/04/19 11:44 Dose: 25 mls/hr Magnesium Sulfate 2 gm/ Premix 50 mls @ 25 mls/hr IV ONETIME ONE Stop: 07/05/19 11:11 Last Admin: 07/05/19 09:43 Dose: 25 mls/hr Magnesium Sulfate 4 gm/ Premix 50 mls @ 12.5 mls/hr IV ONETIME ONE Stop: 07/07/19 14:24 Last Admin: 07/07/19 11:02 Dose: 12.5 mls/hr Magnesium Hydroxide (Milk Of Magnesia) 30 ml PO ONETIME ONE Stop: 07/08/19 06:01 Last Admin: 07/08/19 05:00 Dose: Not Given Ondansetron HCl (Zofran) 4 mg IV Q6H PRN PRN Reason: Nausea/Vomiting Pantoprazole Sodium (Protonix) 40 mg PO BID@0700,1600 [facility] Last Admin: 07/03/19 06:38 Dose: 40 mg Potassium Chloride (Klor-Con 10) 60 meq PO ONETIME ONE Stop: 06/30/19 23:02 Last Admin: 07/01/19 00:08 Dose: 60 meq Potassium Chloride (Klor-Con M20) 60 meq PO ONETIME ONE Stop: 07/01/19 07:15 Last Admin: 07/01/19 10:50 Dose: Not Given Potassium Chloride (Klor-Con M20) 60 meq PO ONETIME ONE Stop: 07/01/19 10:16 Last Admin: 07/01/19 11:06 Dose: 60 meq Potassium Chloride (Klor-Con M20) 20 meq PO ONETIME ONE Stop: 07/05/19 09:13 Last Admin: 07/05/19 09:47 Dose: 20 meq Potassium Chloride (Klor-Con M20) 40 meq PO ONETIME ONE Stop: 07/07/19 10:28 Last Admin: 07/07/19 11:02 Dose: 40 meq Venlafaxine HCl (Effexor Xr) 150 mg PO DAILY [facility] Last Admin: 07/05/19 09:47 Dose: 150 mg - Exam Quality Assessment: No: Supplemental Oxygen General: Alert, Oriented HEENT: Pupils Equal Neck: Supple Lungs: Clear to Auscultation, Normal Respiratory Effort Cardiovascular: Regular Rate, Regular Rhythm Extremities: Normal Inspection, Pedal Edema Skin: Warm, Dry, Intact Psy/Mental Status: Alert, Normal Affect, Normal Mood - Problem List Review Problem List Initiated/Reviewed/Updated: Yes - My Orders Last 24 Hours: My Active Orders 07/09/19 05:11 CBC WITH AUTO DIFF [HEME] AM CMP [COMPREHENSIVE METABOLIC PN,CMP] [CHEM] AM MAGNESIUM [CHEM] AM 07/10/19 05:11 CBC WITH AUTO DIFF [HEME] AM CMP [COMPREHENSIVE METABOLIC PN,CMP] [CHEM] AM MAGNESIUM [CHEM] AM - Plan Plan:: Assessment: Acute: UTI - Diagnosed on previous admission - 11/11 E. coli - Keflex 500 mg 4 times a day - CRP is 16.2-->18.4--> 11.5-->6.1 Recurrent Fall - Again found on the bathroom by a neighbor this would be her a recurrent episode -Waiting for sister to take her home so she has a caregiver. Renal Insufficiency, At baseline - Cr of 1.3-->1.2-->1.1-->1.1-->1.1 with BUN of 29-->28-->29-->31-->24 - improved Dependent edema in LE - improving - Continued weight loss; creatinine slightly up 1.2 - Hold lasix Transaminitis with Hyperbilirubinemia, Improving - AST of 135-->77-->58-->44-->27, ALT of 156-->83-->69-->53-->33 - Alk phos of 156-->394-->343-->242-->217 with Total Bilirubin of 1.3-->1.5-- >0.9-->0.7-->0.7 - She likely has fatty liver disease (she is morbidly obese) - GGT: 81 - Liver U/S: Single Large gallstone within the gallbladder w/o gallbladder wall thickening or biliary duct dilatation - Hep C Abs negative - Consult Dr. Hdz for further evaluation: recommends conservative for now with HIDA scan - HIDA scan results: Poor filling of the gallbladder but no evidence of cystic duct obstruction. Findings may relate to chronic cholecystitis. Generalized Weakness - 2/2 Metabolic Derangement and Recent Fall - Continue PT/OT treatment - Vit D level normal Morbid Obesity - Dietary consult for weight management - BMI of 48 Failure to Thrive - Patient just recently discharged from the hospital - She has no family support locally - States her sister from [place] will be coming down to be with her but with unknown duration of stay - She needs 24hr care or NH placement Single Large gallstone within the gallbladder w/o gallbladder wall thickening or biliary duct dilatation - Asymptomatic - She is drinking and eating well - Consulted General Surgery Moderate Cognitive Impairment - ADVERTISING COLUMNIST note: "Recommend ADVERTISING COLUMNIST Tx at next level of care, preferably an [facility]DC or SNF. If patient insists on remaining in her current living situation with HH, recommend referral to OT for cognitive compensatory strategies" - Ask CM/SW to assess discharge care plan - She wants to go home but she may not be safe to alone since she has no home support - She went home last night and after a couple of days she back in the hospital for similar scenario - May need to get a hold of her DPOA (unsure) and make her/him aware of this important finding Cellulitis right lower extremity with open wound - Continue Keflex 500 mg 4 times a day - improving - Dress wound - Monitor closely Hypomagnesemia - Mg 1.3; 1.1 on recent admission-->1.8-->1.9-->1.7-->1.5-->1.9 - Replete and monitor Hypokalemia - K of 2.9-->3.4-->3.7-->3.5-->3.4-->3.7 - Replete and monitor Chronic: Impaired Vision, HTN, Asthma, OA/DJD, Stasis Dermatitis, Anxiety, Gait Instability S/p Fall and Morbid Obesity Plan: She remains clinically stable Routine AM labs AHA diet DVT/GI Prophylaxis Fall Precautions May need Psych eval PT/OT to assess and treat; they recommend SNF with PT/OT SW/CM for d/c planing patient's sister is coming to town on Tuesday. She would like to go home with her sister instead of a fpc facility. Code status: full Additional orders as above LOS > 96hrs due to slow response to treatment and placement issues
[2019-07-08] MEDS: Docusate Sodium 100 MG Cap PO PRN (17:07)
[2019-07-08] MEDS: QUEtiapine 25 MG Tab PO SCH (21:24)
[2019-07-09] MEDS: Trospium 20 MG Tab PO SCH (05:22)
[2019-07-09] MEDS: Cephalexin 500 MG Cap PO SCH ×2 (05:22→12:54)
[2019-07-09] MEDS: Famotidine 20 MG Tab PO SCH (05:23)
[2019-07-09] MEDS ORDERED: Bisacodyl 10 MG Supp RECTAL ONE (05:36)
--- NOTE | 2019-07-09 09:12 | PCM.DCSUM1 ---
Discharge Summary - Hospital Course HPI Initial Comments: This is a 73 yo elderly white female with past medical hx/o Impaired Vision, HTN , Asthma, OA/DJD, Stasis Dermatitis, Anxiety, Gait Instability, Status Post Fall with Facial Trauma, Morbid Obesity, and Recent Diagnosis of UTI who presents to ED this evening for recurrent fall in the bathroom after a neighbor went to check on her. She was just discharged here a couple of days ago after she was hospitalized due to a recent fall and treatment of uncomplicated urinary tract infection. She supposed to go a correction but decided to go back home and resume HHS in an effort to keep her independence. Unfortunately, she failed and was unable keep herself in a safe manner. Her initial lab in ED shows abnormal CBC and Chemistry. Her Head CT scan report read as no acute intra-cranial abnormality. Patient is primarily being admitted for failure to thrive and inability to care for her self. Diagnosis: Stroke: No - Discharge Data Discharge Date: 07/09/19 Discharge Disposition: Home, Self-Care 01 Condition: Fair - Referral to Home Health Primary Care Physician: Marilyn Bai NP - Patient Summary/Data Consults: Consultations 06/30/19 22:54 Consult to Case Management/Property Supervisor [CONS] Routine Consult to Community Center Coordinator [CONS] Routine Consult to Spiritual Care [CONS] Routine OT Evaluation and Treatment [CONS] Routine PT Evaluation and Treatment [CONS] Routine 07/02/19 10:51 Consult to Physician [CONS] Routine 07/03/19 08:00 Consult to Speech Language Pathology [POWER [employer] DRIVER Evaluation and Treatment] [CONS] Routine 07/04/19 12:44 Consult to Physician [CONS] Routine Hospital Course: Patient was admitted with a urinary tract infection after a fall. Was noted that she had elevated liver enzymes. Abdominal ultrasound and HIDA scan were performed as well as surgical consultation. Patient was not symptomatic. Findings are as below. During hospitalization AST and ALT normalized and alkaline phosphatase decreased to 219. Hepatitis C antibodies were negative. This could be further evaluated as an outpatient. Patient was also noted to have erythema in the bilateral lower extremities with an open wound on the right ahn. There was enough warmth and induration to be concerned about cellulitis of the right lower extremity. She also had classic stasis dermatitis. She was placed on Keflex for her urinary tract infection and continued it for a total of 9 days for her cellulitis. Patient was also seen by Dr. Swanson. He recommended increasing her Effexor XR from 150 mg to 187.5 mg in the morning to help with symptoms of depression. He also recommended Seroquel 6.25 mg at bedtime for clarity of thought and NSAID reduction, but it did make her groggy during the day and also there was concern about increasing her risk for falls. Patient refused to go to a snf facility and we were unable to get home health for her. Her sister did drive up from [place] and will be staying with her for the next couple of weeks as she gets stronger and hopefully decreases the risk for falls. Patient is at a very high risk for falling and rehospitalization. Patient understands this risk, but does not want any snf care. At time of discharge we did encourage outpatient physical therapy. HIDA scan: poor filling of the gallbladder but no evidence of cystic duct obstruction. Findings may relate to chronic cholecystitis. Ultrasound of the gallbladder: 1. Single large gallstone within the gallbladder without gallbladder wall thickening or biliary duct dilatation. 2. No additional abnormality is seen on abdominal ultrasound examination. - Patient Instructions Diet: Heart Healthy Diet Activity: As Tolerated Driving: Do Not Drive Showering/Bathing: May Shower Other/Special Instructions: Follow up with PCP this week. - Discharge Plan *PRESCRIPTION DRUG MONITORING PROGRAM REVIEWED*: Not Applicable *COPY OF PRESCRIPTION DRUG MONITORING REPORT IN PATIENT [place]: Not Applicable Prescriptions/Med Rec: Venlafaxine [Effexor XR] 37.5 mg PO DAILY #30 cap.er Home Medications: Home Meds Furosemide [Lasix] 20 mg PO DAILY 12/07/17 [History] Levalbuterol Tartrate [Xopenex HFA] 2 puff INH Q6H PRN 12/07/17 [History] Metoprolol Succinate [Toprol XL 100mg] 50 mg PO DAILY 12/07/17 [History] Venlafaxine HCl [Venlafaxine ER] 150 mg PO DAILY 12/07/17 [History] Cyanocobalamin (Vitamin B-12) [Vitamin B-12] 500 mcg PO DAILY 06/26/19 [History] Famotidine [Pepcid AC] 10 mg PO ACBREAKFAST 06/26/19 [History] Magnesium Oxide 400 mg PO BID #10 tablet 06/28/19 [Rx] Saccharomyces Boulardii [Florastor] 250 mg PO DAILY #8 capsule 06/28/19 [Rx] Cholecalciferol (Vitamin D3) [Vitamin D3] 2,000 unit PO DAILY 06/30/19 [History] Fesoterodine Fumarate [Toviaz] 8 mg PO DAILY 07/01/19 [History] Levalbuterol Tartrate [Xopenex Hfa] 2 puff INH Q4HR PRN 07/01/19 [History] Venlafaxine [Effexor XR] 37.5 mg PO DAILY #30 cap.er 07/09/19 [Rx] Oxygen Therapy Mode: Room Air Referrals: Marilyn Bai NP [Primary Care Provider] - 07/13/19 10:00 am (Check in at 9: 30am.) - Discharge Summary/Plan Comment DC Time >30 min.: Yes Discharge Summary/Plan Comment: Follow-up with Ms. Marilyn Bai NP this week for follow-up CMP and care. Consider changing Lasix to 20 mg when necessary. Avoid any sedating medication if it increases her risk for falls. Patient would benefit from any in-home services available to her. Unna boot was placed on right leg and should be evaluated by physical therapy within a week. - General Info Date of Service: 07/09/19 Admission Dx/Problem (Free Text: Admission Diagnosis/Problem Admission Diagnosis/Problem UTI (urinary tract infection) due to urinary indwelling catheter Subjective Update: Patient states that she is feeling well. Her sister came in last night and she is excited to go home with her sister. Functional Status: Reports: Pain Controlled - Review of Systems General: Reports: No Symptoms HEENT: Reports: No Symptoms Pulmonary: Reports: No Symptoms Cardiovascular: Reports: No Symptoms Gastrointestinal: Reports: No Symptoms Musculoskeletal: Reports: No Symptoms Skin: Reports: No Symptoms Neurological: Reports: No Symptoms - Patient Data Vitals - Most Recent: Last Vital Signs Temp 98.4 F 07/09/19 00:20 Pulse 61 07/09/19 00:20 Resp 18 07/09/19 00:20 BP 129/88 07/09/19 00:20 Pulse Ox 95 07/09/19 00:20 Weight - Most Recent: 241 lb 14.4 oz I&O - Last 24 hours: Intake & Output 07/08/19 07/09/19 07/09/19 22:59 06:59 14:59 Intake Total 1020 750 Output Total 450 1250 Balance 570 -500 Lab Results - Last 24 hrs: Laboratory Results - last 24 hr 07/09/19 07/09/19 Range/Units 05:40 05:40 WBC 7.14 (3.98-10.04) K/mm3 RBC 4.12 (3.98-5.22) M/mm3 Hgb 12.7 (11.2-15.7) gm/dl Hct 39.8 (34.1-44.9) % MCV 96.6 H (79.4-94.8) fl MCH 30.8 (25.6-32.2) pg MCHC 31.9 L (32.2-35.5) g/dl RDW Std Deviation 50.5 H (36.4-46.3) fL Plt Count 286 (182-369) K/mm3 MPV 10.0 (9.4-12.3) fl Neut % (Auto) 32.2 L (34.0-71.1) % Lymph % (Auto) 51.8 H (19.3-51.7) % [place] % (Auto) 12.6 H (4.7-12.5) % Eos % (Auto) 2.7 (0.7-5.8) Baso % (Auto) 0.3 (0.1-1.2) % Neut # (Auto) 2.30 (1.56-6.13) K/mm3 Lymph # (Auto) 3.70 (1.18-3.74) K/mm3 [place] # (Auto) 0.90 H (0.24-0.36) K/mm3 Eos # (Auto) 0.19 (0.04-0.36) K/mm3 Baso # (Auto) 0.02 (0.01-0.08) K/mm3 Sodium 137 (136-145) mEq/L Potassium 4.0 (3.5-5.1) mEq/L Chloride 99 (98-107) mEq/L Carbon Dioxide 34 H (21-32) mEq/L Anion Gap 8.0 (5-15) BUN 29 H (7-18) mg/dL Creatinine 1.5 H (0.55-1.02) mg/dL Est Cr Clr Drug Dosing 29.11 mL/min Estimated GFR (MDRD) 34 (>60) mL/min BUN/Creatinine Ratio 19.3 H (14-18) Glucose 95 (83-115) mg/dL Calcium 9.7 (8.5-10.1) mg/dL Magnesium 1.8 (1.8-2.4) mg/dl Total Bilirubin 0.5 (0.2-1.0) mg/dL AST 22 (15-37) U/L ALT 25 (14-59) U/L Alkaline Phosphatase 219 H (46-116) U/L Total Protein 6.2 L (6.4-8.2) g/dl Albumin 3.1 L (3.4-5.0) g/dl Globulin 3.1 gm/dL Albumin/Globulin Ratio 1.0 (1-2) Med Orders - Current: Current Medications Albuterol (Proventil Hfa) 0 gm INH Q4H PRN PRN Reason: Shortness of Breath Albuterol/Ipratropium (Duoneb 3.0-0.5 Mg/3 Ml) 3 ml NEB Q4H PRN PRN Reason: Shortness Of Breath/wheezing Bisacodyl (Dulcolax) 5 mg PO DAILY PRN PRN Reason: Constipation Last Admin: 07/08/19 04:59 Dose: 5 mg Cephalexin (Keflex) 500 mg PO Q6HR [facility] Last Admin: 07/09/19 05:22 Dose: 500 mg Cholecalciferol (Vitamin D3) 50 mcg PO DAILY [facility] Last Admin: 07/08/19 08:06 Dose: 50 mcg Cyanocobalamin (Vitamin B12) 500 mcg PO DAILY [facility] Last Admin: 07/08/19 08:08 Dose: 500 mcg Docusate Sodium (Colace) 100 mg PO BID PRN PRN Reason: Constipation Last Admin: 07/08/19 17:07 Dose: 100 mg Enoxaparin Sodium (Lovenox) 40 mg SUBCUT DAILY [facility] Last Admin: 07/08/19 08:07 Dose: 40 mg Famotidine (Pepcid) 10 mg PO ACBREAKFAST [facility] Last Admin: 07/09/19 05:23 Dose: 10 mg Furosemide (Lasix) 20 mg PO DAILY [facility] Last Admin: 07/08/19 08:06 Dose: 20 mg Hydromorphone HCl (Dilaudid) 0.25 mg IVPUSH Q2H PRN PRN Reason: Pain (severe 7-10) Ibuprofen (Motrin) 400 mg PO Q6H PRN PRN Reason: fever/pain Last Admin: 07/08/19 23:49 Dose: 400 mg Magnesium Oxide (Magnesium Oxide) 400 mg PO BID [facility] Last Admin: 07/08/19 21:24 Dose: 400 mg Metoprolol Succinate (Toprol Xl) 50 mg PO DAILY [facility] Last Admin: 07/08/19 08:06 Dose: 50 mg Quetiapine Fumarate (Seroquel) 6.25 mg PO BEDTIME [facility] Last Admin: 07/08/19 21:24 Dose: 6.25 mg Saccharomyces Boulardii (Florastor) 250 mg PO DAILY [facility] Last Admin: 07/08/19 08:06 Dose: 250 mg Senna/Docusate Sodium (Senna Plus) 1 tab PO BID PRN PRN Reason: Constipation Last Admin: 07/08/19 04:58 Dose: 1 tab Temazepam (Restoril) 7.5 mg PO BEDTIME PRN PRN Reason: Sleep Last Admin: 07/03/19 20:16 Dose: 7.5 mg Trospium (Sanctura) 20 mg PO BIDAC [facility] Last Admin: 07/09/19 05:22 Dose: 20 mg Venlafaxine HCl (Effexor Xr) 150 mg PO DAILY [facility] Last Admin: 07/08/19 08:06 Dose: 150 mg Venlafaxine HCl (Effexor Xr) 37.5 mg PO DAILY [facility] Last Admin: 07/08/19 08:08 Dose: 37.5 mg Discontinued Medications Acetaminophen (Tylenol) 650 mg PO Q4H PRN PRN Reason: Pain (Mild 1-3)/fever Acetaminophen/Butalbital/Caffeine (Fioricet 325-50-40 Mg) 1 tab PO Q6H PRN PRN Reason: Headache Last Admin: 07/01/19 10:01 Dose: 1 tab Hydrocodone Bitart/Acetaminophen ([place] 325-5 Mg) 1 tab PO Q4H PRN PRN Reason: Pain (moderate 4-6) Bisacodyl (Dulcolax) 10 mg RECTAL ONETIME ONE Stop: 07/04/19 16:43 Last Admin: 07/04/19 16:49 Dose: 10 mg Bisacodyl (Dulcolax) 10 mg RECTAL ONETIME ONE Stop: 07/09/19 05:37 Last Admin: 07/09/19 05:46 Dose: 10 mg Cephalexin (Keflex) 500 mg PO BID [facility] Last Admin: 07/05/19 09:48 Dose: 500 mg Doxepin HCl (Sinequan) 10 mg PO BEDTIME [facility] Last Admin: 07/01/19 20:57 Dose: Not Given Magnesium Sulfate 2 gm/ Premix 50 mls @ 50 mls/hr IV ONETIME ONE Stop: 06/30/19 21:35 Last Admin: 06/30/19 21:55 Dose: 50 mls/hr Ceftriaxone Sodium 1 gm/ (Sodium Chloride) 100 mls @ 200 mls/hr IV ONETIME STA Stop: 06/30/19 21:36 Last Admin: 06/30/19 21:23 Dose: 200 mls/hr Sodium Chloride (Normal Saline) 1,000 mls @ 150 mls/hr IV ASDIRECTED [facility] Last Infusion: 07/01/19 14:00 Dose: Infused Magnesium Sulfate 2 gm/ Premix 50 mls @ 25 mls/hr IV ONETIME ONE Stop: 07/01/19 00:51 Last Admin: 07/01/19 00:08 Dose: 25 mls/hr Ceftriaxone Sodium 1 gm/ (Sodium Chloride) 100 mls @ 200 mls/hr IV Q24H [facility] Last Admin: 07/02/19 21:12 Dose: 200 mls/hr Promethazine HCl 6.25 mg/ (Sodium Chloride) 50.25 mls @ 100 mls/hr IV Q6H PRN PRN Reason: Nausea/Vomiting Potassium Chloride 10 meq/ (Premix) 100 mls @ 100 mls/hr IV Q1H [facility] Stop: 07/01/19 05:29 Last Admin: 07/01/19 05:45 Dose: 100 mls/hr Sodium Chloride (Normal Saline) 1,000 mls @ 50 mls/hr IV ASDIRECTED [facility] Sodium Chloride (Normal Saline) 1,000 mls @ 25 mls/hr IV ASDIRECTED [facility] Last Admin: 07/05/19 03:55 Dose: 25 mls/hr Magnesium Sulfate 2 gm/ Premix 50 mls @ 25 mls/hr IV ONETIME ONE Stop: 07/01/19 23:08 Last Admin: 07/01/19 21:52 Dose: 25 mls/hr Magnesium Sulfate 2 gm/ Premix 50 mls @ 25 mls/hr IV ONETIME ONE Stop: 07/03/19 22:05 Last Admin: 07/03/19 20:16 Dose: 25 mls/hr Magnesium Sulfate 2 gm/ Premix 50 mls @ 25 mls/hr IV ONETIME ONE Stop: 07/04/19 11:59 Last Admin: 07/04/19 11:44 Dose: 25 mls/hr Magnesium Sulfate 2 gm/ Premix 50 mls @ 25 mls/hr IV ONETIME ONE Stop: 07/05/19 11:11 Last Admin: 07/05/19 09:43 Dose: 25 mls/hr Magnesium Sulfate 4 gm/ Premix 50 mls @ 12.5 mls/hr IV ONETIME ONE Stop: 07/07/19 14:24 Last Admin: 07/07/19 11:02 Dose: 12.5 mls/hr Magnesium Hydroxide (Milk Of Magnesia) 30 ml PO ONETIME ONE Stop: 07/08/19 06:01 Last Admin: 07/08/19 05:00 Dose: Not Given Ondansetron HCl (Zofran) 4 mg IV Q6H PRN PRN Reason: Nausea/Vomiting Pantoprazole Sodium (Protonix) 40 mg PO BID@0700,1600 [facility] Last Admin: 07/03/19 06:38 Dose: 40 mg Potassium Chloride (Klor-Con 10) 60 meq PO ONETIME ONE Stop: 06/30/19 23:02 Last Admin: 07/01/19 00:08 Dose: 60 meq Potassium Chloride (Klor-Con M20) 60 meq PO ONETIME ONE Stop: 07/01/19 07:15 Last Admin: 07/01/19 10:50 Dose: Not Given Potassium Chloride (Klor-Con M20) 60 meq PO ONETIME ONE Stop: 07/01/19 10:16 Last Admin: 07/01/19 11:06 Dose: 60 meq Potassium Chloride (Klor-Con M20) 20 meq PO ONETIME ONE Stop: 07/05/19 09:13 Last Admin: 07/05/19 09:47 Dose: 20 meq Potassium Chloride (Klor-Con M20) 40 meq PO ONETIME ONE Stop: 07/07/19 10:28 Last Admin: 07/07/19 11:02 Dose: 40 meq Venlafaxine HCl (Effexor Xr) 150 mg PO DAILY [facility] Last Admin: 07/05/19 09:47 Dose: 150 mg - Exam Quality Assessment: Denies: Supplemental Oxygen General: Reports: Alert, Oriented HEENT: Reports: Pupils Equal, Pupils Reactive, EOMI, Mucous Membr. Moist/[place] Neck: Reports: Supple Lungs: Reports: Clear to Auscultation, Normal Respiratory Effort Cardiovascular: Reports: Regular Rate, Regular Rhythm GI/Abdominal Exam: Normal Bowel Sounds, Soft, Non-Tender, No Distention Extremities: Pedal Edema (2-3+ pitting edema in the lower extremities. Covering is over wound on bilateral lower cervix.s)
[2019-07-09] MEDS: Cyanocobalamin (Vitamin B12) 1,000 MCG Tab PO SCH (09:45)
[2019-07-09] MEDS: Cholecalciferol (Vitamin D3) 25 MCG Tab PO SCH (09:45)
[2019-07-09] MEDS: Saccharomyces Boulardii (Probiotic) 250 MG Cap PO SCH (09:47)
[2019-07-09] MEDS: Venlafaxine 75 MG Cap.ER PO SCH (09:48)
[2019-07-09] MEDS: Magnesium Oxide 400 MG Tab PO SCH (09:48)
[2019-07-09] MEDS: Venlafaxine 37.5 MG Cap.ER PO SCH (09:48)
[2019-07-09] MEDS: Furosemide 20 MG Tab PO SCH (09:49)
[2019-07-09] MEDS: Metoprolol Succinate 50 MG Tab.ER PO SCH (09:50)
[2019-07-09] MEDS: Enoxaparin 40 MG/0.4 ML Syringe SUBCUT SCH (09:55)
== END 2019-07-09 14:04 | disposition home or self-care (01) | DRG 690 ==
LOC: JD.ED 17:17 → JD.MS 22:22
PROVIDERS: ADMIT Internal Medicine; ATTEND Internal Medicine
DX: N39.0 Urinary tract infection, site not specified (principal); R31.9 Hematuria, unspecified; N17.9 Acute kidney failure, unspecified; L03.115 Cellulitis of right lower limb; Z68.42 Body mass index [BMI] 45.0-49.9, adult; R41.0 Disorientation, unspecified; R53.1 Weakness; H54.7 Unspecified visual loss; E66.01 Morbid (severe) obesity due to excess calories; E66.9 Obesity, unspecified; I10 Essential (primary) hypertension; Z91.81 History of falling; F41.9 Anxiety disorder, unspecified; M19.91 Primary osteoarthritis, unspecified site; E83.42 Hypomagnesemia; E87.6 Hypokalemia; F03.90 Unspecified dementia, unspecified severity, without behavioral disturbance, psychotic disturbance, mood disturbance, and anxiety; W19.XXXA Unspecified fall, initial encounter; J45.909 Unspecified asthma, uncomplicated; Z79.899 Other long term (current) drug therapy; Z87.891 Personal history of nicotine dependence
CPT/HCPCS: 36415; 70450; 80053; 81001; 82248; 82977; 83690; 83735; 85025; 86803; 96365; 96367; 99285; J0696; J3475; J7030; J7040; 29580-GP; 76700; 76700-26; 78226; 78226-26; 82140; 86140; 86317; 87086; 87641; 92507-GN; 92523-GN; 97110-GO; 97110-GP; 97116-GP; 97161-GP; 97165-GO; 97530-GO; 97530-GP; A9270-GY; A9537; J1650; J3480; Q3014

== ENCOUNTER 2020-03-14 17:10 | Inpatient (IN) | payer MEDICARE, MEDICAID ==
--- NOTE | 2020-03-14 17:37 | EDM.PDOC ---
<Logan Houston - Last Filed: 03/14/20 20:07> ED HPI GENERAL MEDICAL PROBLEM - General Chief Complaint: Cardiovascular Problem Stated Complaint: [facility] Time Seen by Provider: 03/14/20 17:28 - Related Data Allergies Allergy/AdvReac Type Severity Reaction Status Date / Time No Known Allergies Allergy Verified 07/01/19 03:56 Home Meds: Home Meds Furosemide [Lasix] 20 mg PO DAILY PRN 12/07/17 [History] Metoprolol Succinate [Toprol XL 100mg] 50 mg PO DAILY 12/07/17 [History] Venlafaxine HCl [Venlafaxine ER] 150 mg PO DAILY 12/07/17 [History] Magnesium Oxide 400 mg PO BID #10 tablet 06/28/19 [Rx] Fesoterodine Fumarate [Toviaz] 8 mg PO DAILY 07/01/19 [History] Levalbuterol Tartrate [Xopenex Hfa] 2 puff INH Q4HR PRN 07/01/19 [History] Acetaminophen [Tylenol] 500 mg PO TID 03/14/20 [History] Methyl B12 Plus 1 tab PO DAILY 03/14/20 [History] Course - Vital Signs Last Recorded V/S: Last Vital Signs Temp 36.3 C 03/17/20 11:48 Pulse 67 03/17/20 11:48 Resp 20 03/17/20 11:48 BP 121/76 03/17/20 11:48 Pulse Ox 83 L 03/17/20 11:48 - Orders/Labs/Meds Orders: Medication Orders Acetaminophen (Tylenol) 650 mg PO Q4H PRN PRN Reason: Pain (Mild 1-3)/fever Last Admin: 03/15/20 03:46 Dose: 650 mg Hydrocodone Bitart/Acetaminophen ([place] 325-5 Mg) 1 tab PO Q4H PRN PRN Reason: Pain (moderate 4-6) Last Admin: 03/17/20 04:15 Dose: 1 tab Admin: 03/16/20 17:31 Dose: 1 tab Admin: 03/16/20 06:57 Dose: 1 tab Admin: 03/15/20 21:22 Dose: 1 tab Admin: 03/15/20 15:17 Dose: 1 tab Enoxaparin Sodium (Lovenox) 40 mg SUBCUT DAILY [facility] Last Admin: 03/17/20 09:21 Dose: 40 mg Admin: 03/16/20 08:27 Dose: 40 mg Admin: 03/15/20 08:18 Dose: 40 mg Furosemide (Lasix) 40 mg PO DAILY [facility] Last Admin: 03/17/20 09:19 Dose: 40 mg Admin: 03/16/20 08:26 Dose: 40 mg Admin: 03/15/20 17:27 Dose: 40 mg Levofloxacin (Levaquin) 750 mg PO 1600 [facility] Magnesium Oxide (Magnesium Oxide) 400 mg PO BID [facility] Last Admin: 03/17/20 10:51 Dose: 400 mg Metoprolol Succinate (Toprol Xl) 50 mg PO DAILY [facility] Last Admin: 03/17/20 09:19 Dose: 50 mg Admin: 03/16/20 08:26 Dose: 50 mg Admin: 03/15/20 17:27 Dose: 50 mg Nystatin (Nystop) 1 gm TOP TID [facility] Last Admin: 03/17/20 09:13 Dose: 1 applic Admin: 03/16/20 21:54 Dose: 1 applic Admin: 03/16/20 16:46 Dose: 1 applic Admin: 03/16/20 08:28 Dose: 1 applic Admin: 03/15/20 23:03 Dose: 1 applic Admin: 03/15/20 15:17 Dose: 1 applic Admin: 03/15/20 09:00 Dose: 1 applic Sodium Chloride (Saline Flush) 10 ml FLUSH ASDIRECTED PRN PRN Reason: Keep Vein Open Venlafaxine HCl (Effexor Xr) 150 mg PO DAILY [facility] Last Admin: 03/17/20 09:20 Dose: 150 mg Admin: 03/16/20 08:26 Dose: 150 mg Admin: 03/15/20 17:27 Dose: 150 mg Labs: Laboratory Tests 03/14/20 03/14/20 03/14/20 Range/Units 17:20 17:50 17:50 WBC 7.23 (3.98-10.04) K/mm3 RBC 3.76 L (3.98-5.22) M/mm3 Hgb 11.7 (11.2-15.7) gm/dl Hct 37.5 (34.1-44.9) % MCV 99.7 H (79.4-94.8) fl MCH 31.1 (25.6-32.2) pg MCHC 31.2 L (32.2-35.5) g/dl RDW Std Deviation 47.8 H (36.4-46.3) fL Plt Count 224 (182-369) K/mm3 MPV 10.2 (9.4-12.3) fl Neutrophils % (Manual) 67 H (40-60) % Band Neutrophils % 1 (0-10) % Lymphocytes % (Manual) 21 (20-40) % Atypical Lymphs % 0 % Monocytes % (Manual) 9 (2-10) % Eosinophils % (Manual) 2 (0.7-5.8) % Basophils % (Manual) 0 L (0.1-1.2) Platelet Estimate Adequate Anisocytosis 1+ slight Macrocytosis 1+ slight Ovalocytes 1+ slight RBC Morph Comment Not Reportable ESR (0-20) mm/hr PT 11.9 (9.7-12.0) SECONDS INR 1.10 APTT 31 (22-31) SECONDS Sodium (136-145) mEq/L Potassium (3.5-5.1) mEq/L Chloride (98-107) mEq/L Carbon Dioxide (21-32) mEq/L Anion Gap (5-15) BUN (7-18) mg/dL Creatinine (0.55-1.02) mg/dL Est Cr Clr Drug Dosing mL/min Estimated GFR (MDRD) (>60) mL/min BUN/Creatinine Ratio (14-18) Glucose (83-115) mg/dL Lactic Acid (0.4-2.0) mmol/L Calcium (8.5-10.1) mg/dL Magnesium (1.8-2.4) mg/dl Total Bilirubin (0.2-1.0) mg/dL AST (15-37) U/L ALT (14-59) U/L Alkaline Phosphatase (46-116) U/L Troponin I (0.00-0.056) ng/mL C-Reactive Protein (<1.0) mg/dL NT-Pro-B Natriuret Pep (0-450) pg/mL Total Protein (6.4-8.2) g/dl Albumin (3.4-5.0) g/dl Globulin gm/dL Albumin/Globulin Ratio (1-2) Urine Color Yellow (Yellow) Urine Appearance Cloudy H (Clear) Urine pH 6.0 (5.0-8.0) Ur Specific [place] > or = 1.030 (1.005-1.030) Urine Protein 2+ H (Negative) Urine Glucose (UA) Negative (Negative) Urine Ketones 1+ H (Negative) Urine Occult Blood 2+ H (Negative) Urine Nitrite Negative (Negative) Urine Bilirubin 1+ H (Negative) Urine Urobilinogen 1.0 (0.2-1.0) Ur Leukocyte Esterase 2+ H (Negative) Urine RBC 5-10 H (0-5) /hpf Urine WBC Too numerous to cnt H (0-5) /hpf Ur Squamous Epith Cells 5-10 H (0-5) /hpf Urine Bacteria Many H (FEW) /hpf Urine Mucus Few (FEW) /hpf 03/14/20 03/14/20 03/14/20 Range/Units 17:50 17:50 17:50 WBC (3.98-10.04) K/mm3 RBC (3.98-5.22) M/mm3 Hgb (11.2-15.7) gm/dl Hct (34.1-44.9) % MCV (79.4-94.8) fl MCH (25.6-32.2) pg MCHC (32.2-35.5) g/dl RDW Std Deviation (36.4-46.3) fL Plt Count (182-369) K/mm3 MPV (9.4-12.3) fl Neutrophils % (Manual) (40-60) % Band Neutrophils % (0-10) % Lymphocytes % (Manual) (20-40) % Atypical Lymphs % % Monocytes % (Manual) (2-10) % Eosinophils % (Manual) (0.7-5.8) % Basophils % (Manual) (0.1-1.2) Platelet Estimate Anisocytosis Macrocytosis Ovalocytes RBC Morph Comment ESR 25 H (0-20) mm/hr PT (9.7-12.0) SECONDS INR APTT (22-31) SECONDS Sodium 138 (136-145) mEq/L Potassium 3.6 (3.5-5.1) mEq/L Chloride 102 (98-107) mEq/L Carbon Dioxide 30 (21-32) mEq/L Anion Gap 9.6 (5-15) BUN 22 H (7-18) mg/dL Creatinine 1.1 H (0.55-1.02) mg/dL Est Cr Clr Drug Dosing 37.57 mL/min Estimated GFR (MDRD) 48 (>60) mL/min BUN/Creatinine Ratio 20.0 H (14-18) Glucose 120 H (83-115) mg/dL Lactic Acid (0.4-2.0) mmol/L Calcium 8.9 (8.5-10.1) mg/dL Magnesium 1.2 L (1.8-2.4) mg/dl Total Bilirubin 1.5 H (0.2-1.0) mg/dL AST 21 (15-37) U/L ALT 10 L (14-59) U/L Alkaline Phosphatase 91 (46-116) U/L Troponin I < 0.017 (0.00-0.056) ng/mL C-Reactive Protein 12.0 H* (<1.0) mg/dL NT-Pro-B Natriuret Pep 427 (0-450) pg/mL Total Protein 6.1 L (6.4-8.2) g/dl Albumin 2.8 L (3.4-5.0) g/dl Globulin 3.3 gm/dL Albumin/Globulin Ratio 0.9 L (1-2) Urine Color (Yellow) Urine Appearance (Clear) Urine pH (5.0-8.0) Ur Specific [place] (1.005-1.030) Urine Protein (Negative) Urine Glucose (UA) (Negative) Urine Ketones (Negative) Urine Occult Blood (Negative) Urine Nitrite (Negative) Urine Bilirubin (Negative) Urine Urobilinogen (0.2-1.0) Ur Leukocyte Esterase (Negative) Urine RBC (0-5) /hpf Urine WBC (0-5) /hpf Ur Squamous Epith Cells (0-5) /hpf Urine Bacteria (FEW) /hpf Urine Mucus (FEW) /hpf // Range/Units 17:50 WBC (3.98-10.04) K/mm3 RBC (3.98-5.22) M/mm3 Hgb (11.2-15.7) gm/dl Hct (34.1-44.9) % MCV (79.4-94.8) fl MCH (25.6-32.2) pg MCHC (32.2-35.5) g/dl RDW Std Deviation (36.4-46.3) fL Plt Count (182-369) K/mm3 MPV (9.4-12.3) fl Neutrophils % (Manual) (40-60) % Band Neutrophils % (0-10) % Lymphocytes % (Manual) (20-40) % Atypical Lymphs % % Monocytes % (Manual) (2-10) % Eosinophils % (Manual) (0.7-5.8) % Basophils % (Manual) (0.1-1.2) Platelet Estimate Anisocytosis Macrocytosis Ovalocytes RBC Morph Comment ESR (0-20) mm/hr PT (9.7-12.0) SECONDS INR APTT (22-31) SECONDS Sodium (136-145) mEq/L Potassium (3.5-5.1) mEq/L Chloride (98-107) mEq/L Carbon Dioxide (21-32) mEq/L Anion Gap (5-15) BUN (7-18) mg/dL Creatinine (0.55-1.02) mg/dL Est Cr Clr Drug Dosing mL/min Estimated GFR (MDRD) (>60) mL/min BUN/Creatinine Ratio (14-18) Glucose (83-115) mg/dL Lactic Acid 1.2 (0.4-2.0) mmol/L Calcium (8.5-10.1) mg/dL Magnesium (1.8-2.4) mg/dl Total Bilirubin (0.2-1.0) mg/dL AST (15-37) U/L ALT (14-59) U/L Alkaline Phosphatase (46-116) U/L Troponin I (0.00-0.056) ng/mL C-Reactive Protein (<1.0) mg/dL NT-Pro-B Natriuret Pep (0-450) pg/mL Total Protein (6.4-8.2) g/dl Albumin (3.4-5.0) g/dl Globulin gm/dL Albumin/Globulin Ratio (1-2) Urine Color (Yellow) Urine Appearance (Clear) Urine pH (5.0-8.0) Ur Specific [place] (1.005-1.030) Urine Protein (Negative) Urine Glucose (UA) (Negative) Urine Ketones (Negative) Urine Occult Blood (Negative) Urine Nitrite (Negative) Urine Bilirubin (Negative) Urine Urobilinogen (0.2-1.0) Ur Leukocyte Esterase (Negative) Urine RBC (0-5) /hpf Urine WBC (0-5) /hpf Ur Squamous Epith Cells (0-5) /hpf Urine Bacteria (FEW) /hpf Urine Mucus (FEW) /hpf Meds: Medications Generic Name Dose Route Start Last Admin Trade Name Nahum PRN Reason Stop Dose Admin Acetaminophen 650 mg 03/14/20 20:58 03/15/20 03:46 Tylenol PO 650 mg Q4H PRN Administration Pain (Mild 1-3)/fever Hydrocodone Bitart/Acetaminophen 1 tab 03/15/20 14:37 03/17/20 04:15 [place] 325-5 Mg PO 1 tab Q4H PRN Administration Pain (moderate 4-6) Enoxaparin Sodium 40 mg 03/15/20 09:00 03/17/20 09:21 Lovenox SUBCUT 40 mg DAILY [facility] Administration Furosemide 40 mg 03/15/20 16:15 03/17/20 09:19 Lasix PO 40 mg DAILY [facility] Administration Levofloxacin 750 mg 03/17/20 16:00 Levaquin PO 1600 [facility] Magnesium Oxide 400 mg 03/17/20 09:30 03/17/20 10:51 Magnesium Oxide PO 400 mg BID [facility] Administration Metoprolol Succinate 50 mg 03/15/20 16:15 03/17/20 09:19 Toprol Xl PO 50 mg DAILY [facility] Administration Nystatin 1 gm 03/15/20 09:00 03/17/20 09:13 Nystop TOP 1 applic TID [facility] Administration Sodium Chloride 10 ml 03/16/20 08:05 Saline Flush FLUSH ASDIRECTED PRN Keep Vein Open Venlafaxine HCl 150 mg 03/15/20 16:15 03/17/20 09:20 Effexor Xr PO 150 mg DAILY [facility] Administration Discontinued Medications Generic Name Dose Route Start Last Admin Trade Name Nahum PRN Reason Stop Dose Admin Acetaminophen 650 mg 03/14/20 18:17 03/14/20 18:42 Tylenol PO 03/14/20 18:18 650 mg NOW ONE Administration Al Hydroxide/Mg Hydroxide 30 ml 03/17/20 04:02 03/17/20 04:21 Mag-Al Plus PO 03/17/20 04:03 Not Given ONETIME ONE Diphenhydramine HCl 25 mg 03/16/20 10:45 03/16/20 11:04 Benadryl PO 03/16/20 10:46 25 mg ONETIME ONE Administration Furosemide 60 mg 03/14/20 18:35 03/14/20 18:42 Lasix IVPUSH 03/14/20 18:36 60 mg NOW ONE Administration Sodium Chloride 1,000 mls @ 50 mls/hr 03/14/20 18:00 03/15/20 14:05 Normal Saline IV 50 mls/hr ASDIRECTED [facility] Administration Ceftriaxone Sodium 2 gm/ 100 mls @ 200 mls/hr 03/14/20 18:45 03/15/20 17:45 Sodium Chloride IV 200 mls/hr Q24H [facility] Administration Vancomycin HCl 2 gm/ Sodium 250 mls @ 250 mls/hr 03/14/20 18:41 03/14/20 18: 51 Chloride IV 03/14/20 19:40 250 mls/hr ONETIME ONE Administration Magnesium Sulfate 2 gm/ Premix 50 mls @ 25 mls/hr 03/14/20 19:55 03/14/20 20: 10 IV 03/14/20 21:54 25 mls/hr ONETIME ONE Administration Vancomycin HCl 1.75 gm/ Sodium 500 mls @ 250 mls/hr 03/15/20 21:00 Chloride IV Q24H [facility] Magnesium Sulfate 4 gm/ Premix 50 mls @ 12.5 mls/hr 03/15/20 08:56 03/15/20 09:18 IV 03/15/20 12:55 12.5 mls/hr ONETIME ONE Administration Vancomycin HCl 1 gm/ 250 mls @ 167 mls/hr 03/15/20 13:00 03/16/20 06:10 Vancomycin HCl 250 mg/ Sodium IV 167 mls/hr Chloride Q18H [facility] Administration Magnesium Sulfate 4 gm/ Premix 50 mls @ 12.5 mls/hr 03/16/20 08:15 03/16/20 08:23 IV 03/16/20 12:14 12.5 mls/hr ONETIME ONE Administration Magnesium Sulfate 4 gm/ Premix 50 mls @ 12.5 mls/hr 03/17/20 08:00 03/17/20 09:15 IV 03/17/20 11:59 12.5 mls/hr ONETIME ONE Administration Levofloxacin 750 mg 03/16/20 16:00 Levaquin PO Q24H [facility] Levofloxacin 750 mg 03/16/20 16:00 03/16/20 16:48 Levaquin PO 750 mg Q48H [facility] Administration Potassium Chloride 40 meq 03/15/20 08:56 03/15/20 09:17 Klor-Con M20 PO 03/15/20 08:57 40 meq ONETIME ONE Administration Potassium Chloride 40 meq 03/15/20 18:00 03/15/20 17:28 Klor-Con M20 PO 03/15/20 18:01 40 meq ONETIME ONE Administration Potassium Chloride 40 meq 03/17/20 07:28 03/17/20 09:18 Klor-Con M20 PO 03/17/20 07:29 40 meq ONETIME ONE Administration Vancomycin HCl 0 dose 03/14/20 21:00 Pharmacy To Dose - Vancomycin .XX ASDIRECTED PRN RX TO DOSE VANCOMYCIN Venlafaxine HCl 37.5 mg 03/15/20 16:15 03/15/20 17:34 Effexor Xr PO Not Given DAILY [facility] - Re-Assessments/Exams Free Text/Narrative Re-Assessment/Exam: 03/14/20 19:50 As above, the patient was received from Dr. Albert for change of shift. The patient's ESR returned elevated at 25. Her urinalysis is remarkable for 2+ occult blood with 5-10 RBCs, 2+ leukocyte esterase with too numerous to count WBCs, nitrite negative with many bacteria, and 5-10 squamous epithelial cells. I have ordered a 2 g Mg-rider to address the patient's hypomagnesemia. Her urinalysis is clearly consistent with a UTI, however, Dr. Albert has already ordered both Rocephin and vancomycin. We will contact Dr. Kim to arrange for admission. 03/14/20 20:[address] Villegas at 20:04. He is familiar with the patient, and stated that he has twice previously tried to have her placed, and that she has twice previously refused, but he is willing to try again. He accepted the patient for admission to the hospital. Departure - Departure Time of Disposition: 20:08 Disposition: Admitted As Inpatient 64 Clinical Impression: Cellulitis of both lower extremities, Dependent edema, Acute febrile illness, Hypomagnesemia Urinary incontinence Qualifiers: Urinary Incontinence type: urinary incontinence without sensory awareness Qualified Code(s): N39.42 - Incontinence without sensory awareness UTI (urinary tract infection) Qualifiers: Urinary tract infection type: site unspecified Hematuria presence: with hematuria Qualified Code(s): N39.0 - Urinary tract infection, site not specified Sepsis Event Note - Focused Exam Date Exam was Performed: 03/14/20 Time Exam was Performed: 20:07 <Riley Albert - Last Filed: 03/17/20 13:45> ED HPI GENERAL MEDICAL PROBLEM - General Source of Information: Reports: Patient History Limitations: Reports: No Limitations - History of Present Illness INITIAL COMMENTS - FREE TEXT/NARRATIVE: 74-year-old female presents to the ED per [place] [facility]. It is unclear exactly who called the ambulance for her. She does have a lady that comes and cleans her house who is been after her to seek medical attention for the last several days. Portably she has a fever of 101 degrees at home. Associated loss of appetite for last 2 days. She is experiencing intermittent chills and hot spells but has not checked her temperature. It was checked by the lady who cleans her house. Patient has open wounds to both lower extremities from venous stasis dermatitis which are chronic. More recently the legs have become much more swollen and both have become much more painful. She is unable to walk. She cannot hardly make it to the bathroom. She takes Lasix daily for her chronic dependent edema and has been incontinent of urine and stool. She was incontinent of both upon arrival in the ED. She has an extensive candidiasis/intertrigo rash to both inguinal regions lower area of the abdomen and the pannus folds and in the perineum and vulva. Is quite apparent that she can no longer care for herself at home. She has evidence of cellulitis both lower extremities. He is unsure if she is gained or lost weight as she does not have a scale decays that she has been out of many of her medications and has not been able to get to the drugstore to have them filled. Unclear if 1 of these is Lasix. Onset: Gradual, Unknown/Unsure (Likely getting worse over the last 2 weeks. Fever for 3 days.) Onset Date: 03/11/20 (Likely febrile for the last 3 days.) Duration: Chronic, Constant, Getting Worse Location: Reports: Lower Extremity, Left, Lower Extremity, Right (Venous stasis dermatitis with secondary cellulitis both lower extremities), Other (Febrile for the last 3 days.) Quality: Reports: Other (Aching pain in both lower extremities.) Severity: Moderate (7 out of 10) Improves with: Reports: Rest Worsens with: Reports: Other Context: Reports: Other (Chronic problems with severe dependent edema and venous stasis dermatitis and ulceration.). Denies: Activity, Exercise (Walking and standing make the pain worse), Lifting, Sick Contact, Trauma Associated Symptoms: Reports: Fever/Chills, Loss of Appetite, Malaise, Nausea/ Vomiting, Shortness of Breath (He without vomiting), Weakness. Denies: Confusion, Chest Pain, Cough, cough w sputum, Diaphoresis, Headaches, Rash, Seizure, Syncope Treatments PUMP RUNNER: Reports: Other (see below) (Lysed weakness. Hardly able to weight-bear at all. 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: Endometriosis Musculoskeletal History: Reports: Osteoarthritis Neurological History: Reports: Other (See Below) Psychiatric History: Reports: Anxiety Endocrine/Metabolic History: Reports: Obesity/BMI 30+ Immunologic History: Reports: None Oncologic (Cancer) History: Reports: None Dermatologic History: Reports: Chronic Cellulitis, Other (See Below) Other Dermatologic History: sentitive skin, "break out easy" - Past Surgical History HEENT Surgical History: Reports: Tonsillectomy GI Surgical History: Reports: Colonoscopy, EGD Female Surgical History: Reports: Hysterectomy Social & Family History - Family History Family Medical History: Noncontributory - Tobacco Use Smoking Status *Q: Former Smoker Used Tobacco, but Quit: Yes Month/Year Tobacco Last Used: 30yr - Caffeine Use Caffeine Use: Reports: Coffee, Soda Other Caffeine Use: some days 1-2 cups of coffee other days 3-4. - Recreational Drug Use Recreational Drug Use: No - Living Situation & Occupation Living situation: Reports: , Alone (in an apartment) Occupation: Retired ED ROS GENERAL - Review of Systems Review Of Systems: See Below Constitutional: Reports: Fever, Chills, Malaise, Weakness, Fatigue, Decreased Appetite (Not a much at all for the last 3 days) HEENT: Reports: Glasses Respiratory: Reports: Shortness of Breath, Cough. Denies: Wheezing (Assess for reading), Pleuritic Chest Pain Cardiovascular: Reports: Blood Pressure Problem, Dyspnea on Exertion (Running severe dependent edema both lower extremities), Edema, Orthopnea, Palpitations. Denies: Chest Pain (Productive cough), Claudication (Mild), Lightheadedness ( Occasional orthopnea) Endocrine: Reports: Fatigue (Occasional) GI/Abdominal: Reports: Diarrhea, Decreased Appetite, Nausea (Loose stools but not diarrhea.). Denies: Hematemesis, Hematochezia, Stool Incontinence, Vomiting : Reports: Frequency, Incontinence (Continent of urine she states he just simply runs out of her.) Musculoskeletal: Reports: Back Pain, Joint Pain (Severe arthritis both knees both hips low back neck intermittent shoulder pain) Skin: Reports: Bruising (Easily.) Neurological: Reports: No Symptoms Psychiatric: Reports: No Symptoms Hematologic/Lymphatic: Reports: No Symptoms Immunologic: Reports: No Symptoms ED EXAM, GENERAL - Physical Exam Exam: See Below Exam Limited By: No Limitations General Appearance: Alert, Mild Distress, Other (Patient arrived incontinent of urine and stool. She smells like the any urinary incontinence is been going on for several days. She is uncapped and obviously not able to shower or cleanse herself. She is so large that she would not be able to wipe her bottom. Temperature was recorded 36.8 but she does feel very warm to palpation to me I 101 degrees. Heart rate was 102 and sinus. Respiratory it is 20 with O2 sats of 92 to 94% on room air. Placed on oxygen at 2 L. BP 143/50.) Eye Exam: Bilateral Eye: Normal Inspection (Scleral icterus. Very mild blepharal pallor.), PERRL Throat/Mouth: Other (Lung is mildly dry and coated. She is a dentulous and does not is not wearing her dentures.) Head: Atraumatic, Normocephalic, Other (No outward signs of head or facial trauma) Neck: Non-Tender, Full Range of Motion. No: Carotid Bruit, Lymphadenopathy (L) , Lymphadenopathy (R) Respiratory/Chest: No Accessory Muscle Use, Chest Non-Tender, Respiratory Distress (Mild tachypnea at rest. 20 to 24/min), Rales (Fine rales rales both lung bases.). No: Rhonchi, Wheezing Cardiovascular: Regular Rate, Rhythm, No Gallop, No Murmur, No Rub, JVD (To 3 cm below the right angle of the mandible.). No: Normal Peripheral Pulses (To palpate any pulses in the lower extremities due to severe edema up to the thighs bilaterally), No Edema Peripheral Pulses: 0: Posterior Tibial (L) (Lower extremity pulses are obscured by pedal edema), Posterior Tibial (R), Dorsalis Pedis (L), Dorsalis Pedis (R), 2 +: Carotid (L), Carotid (R) GI/Abdominal: Normal Bowel Sounds, Soft, Non-Tender, No Abnormal Bruit, No Mass , Other (Large periumbilical hernia which gives her no pain. Abdominal girth a morbidly obese limits ability to palpate solid organs.) Extremities: Pedal Edema (Plus bilaterally lower extremities), Limited Range of Motion, Increased Warmth, Other (And has 4+ pitting edema up above the knees to thighs bilaterally. There is a scaly erythematous rash involving at least 40% of both anterior shins or tibias. The one on the right is actually circumferential around the leg the left has a mild bare spot laterally. The left is worse than the right in terms of crusting ann crust and oozing serous material due to the gross edema. Both areas are very warm to touch and erythematous suggesting underlying cellulitis. She cannot lift either leg off the gurney on her own volition.) Neurological: Alert, Oriented, CN II-XII Intact, Normal Cognition Psychiatric: Normal Affect, Normal Mood Skin Exam: Warm, Dry, Erythema, Increased Warmth, Other (Cellulitis of both lower extremities secondary to venous stasis dermatitis and ulceration with secondary infection. She has a severe intertrigo that travels from anterior iliac spine to the other anterior iliac spine involving both inguinal areas the pannus of the lower abdominal wall the mons pubis the vulva and the perineum. This appears to be mostly candidiasis. The skin is quite raw in these areas.). No: Intact EKG INTERPRETATION EKG Date: 03/14/20 Time: 18:08 Rhythm: Other Rate (Beats/Min): 102 [place]: LAD-Left [place] Deviation P-Wave: Enlarged (Mild left axis deviation -6 degrees left atrial hypertrophy pattern) QRS: Other (Q waves V1 V2 and near Q wave in V3 suggest old anterior septal myocardial infarction.) ST-T: Other (Nonspecific T waves in 1 and aVL) QT: Prolonged (Mildly prolonged) EKG Interpretation Comments: Abnormal ECG Course - Orders/Labs/Meds Orders: Medication Orders Acetaminophen (Tylenol) 650 mg PO Q4H PRN PRN Reason: Pain (Mild 1-3)/fever Last Admin: 03/15/20 03:46 Dose: 650 mg Hydrocodone Bitart/Acetaminophen ([place] 325-5 Mg) 1 tab PO Q4H PRN PRN Reason: Pain (moderate 4-6) Last Admin: 03/17/20 04:15 Dose: 1 tab Admin: 03/16/20 17:31 Dose: 1 tab Admin: 03/16/20 06:57 Dose: 1 tab Admin: 03/15/20 21:22 Dose: 1 tab Admin: 03/15/20 15:17 Dose: 1 tab Enoxaparin Sodium (Lovenox) 40 mg SUBCUT DAILY [facility] Last Admin: 03/17/20 09:21 Dose: 40 mg Admin: 03/16/20 08:27 Dose: 40 mg Admin: 03/15/20 08:18 Dose: 40 mg Furosemide (Lasix) 40 mg PO DAILY [facility] Last Admin: 03/17/20 09:19 Dose: 40 mg Admin: 03/16/20 08:26 Dose: 40 mg Admin: 03/15/20 17:27 Dose: 40 mg Levofloxacin (Levaquin) 750 mg PO 1600 [facility] Magnesium Oxide (Magnesium Oxide) 400 mg PO BID [facility] Last Admin: 03/17/20 10:51 Dose: 400 mg Metoprolol Succinate (Toprol Xl) 50 mg PO DAILY [facility] Last Admin: 03/17/20 09:19 Dose: 50 mg Admin: 03/16/20 08:26 Dose: 50 mg Admin: 03/15/20 17:27 Dose: 50 mg Nystatin (Nystop) 1 gm TOP TID [facility] Last Admin: 03/17/20 09:13 Dose: 1 applic Admin: 03/16/20 21:54 Dose: 1 applic Admin: 03/16/20 16:46 Dose: 1 applic Admin: 03/16/20 08:28 Dose: 1 applic Admin: 03/15/20 23:03 Dose: 1 applic Admin: 03/15/20 15:17 Dose: 1 applic Admin: 03/15/20 09:00 Dose: 1 applic Sodium Chloride (Saline Flush) 10 ml FLUSH ASDIRECTED PRN PRN Reason: Keep Vein Open Venlafaxine HCl (Effexor Xr) 150 mg PO DAILY [facility] Last Admin: 03/17/20 09:20 Dose: 150 mg Admin: 03/16/20 08:26 Dose: 150 mg Admin: 03/15/20 17:27 Dose: 150 mg Labs: Laboratory Tests 03/14/20 03/14/20 03/14/20 Range/Units 17:20 17:50 17:50 WBC 7.23 (3.98-10.04) K/mm3 RBC 3.76 L (3.98-5.22) M/mm3 Hgb 11.7 (11.2-15.7) gm/dl Hct 37.5 (34.1-44.9) % MCV 99.7 H (79.4-94.8) fl MCH 31.1 (25.6-32.2) pg MCHC 31.2 L (32.2-35.5) g/dl RDW Std Deviation 47.8 H (36.4-46.3) fL Plt Count 224 (182-369) K/mm3 MPV 10.2 (9.4-12.3) fl Neutrophils % (Manual) 67 H (40-60) % Band Neutrophils % 1 (0-10) % Lymphocytes % (Manual) 21 (20-40) % Atypical Lymphs % 0 % Monocytes % (Manual) 9 (2-10) % Eosinophils % (Manual) 2 (0.7-5.8) % Basophils % (Manual) 0 L (0.1-1.2) Platelet Estimate Adequate Anisocytosis 1+ slight Macrocytosis 1+ slight Ovalocytes 1+ slight RBC Morph Comment Not Reportable ESR (0-20) mm/hr PT 11.9 (9.7-12.0) SECONDS INR 1.10 APTT 31 (22-31) SECONDS Sodium (136-145) mEq/L Potassium (3.5-5.1) mEq/L Chloride (98-107) mEq/L Carbon Dioxide (21-32) mEq/L Anion Gap (5-15) BUN (7-18) mg/dL Creatinine (0.55-1.02) mg/dL Est Cr Clr Drug Dosing mL/min Estimated GFR (MDRD) (>60) mL/min BUN/Creatinine Ratio (14-18) Glucose (83-115) mg/dL Lactic Acid (0.4-2.0) mmol/L Calcium (8.5-10.1) mg/dL Magnesium (1.8-2.4) mg/dl Total Bilirubin (0.2-1.0) mg/dL AST (15-37) U/L ALT (14-59) U/L Alkaline Phosphatase (46-116) U/L Troponin I (0.00-0.056) ng/mL C-Reactive Protein (<1.0) mg/dL NT-Pro-B Natriuret Pep (0-450) pg/mL Total Protein (6.4-8.2) g/dl Albumin (3.4-5.0) g/dl Globulin gm/dL Albumin/Globulin Ratio (1-2) Urine Color Yellow (Yellow) Urine Appearance Cloudy H (Clear) Urine pH 6.0 (5.0-8.0) Ur Specific [place] > or = 1.030 (1.005-1.030) Urine Protein 2+ H (Negative) Urine Glucose (UA) Negative (Negative) Urine Ketones 1+ H (Negative) Urine Occult Blood 2+ H (Negative) Urine Nitrite Negative (Negative) Urine Bilirubin 1+ H (Negative) Urine Urobilinogen 1.0 (0.2-1.0) Ur Leukocyte Esterase 2+ H (Negative) Urine RBC 5-10 H (0-5) /hpf Urine WBC Too numerous to cnt H (0-5) /hpf Ur Squamous Epith Cells 5-10 H (0-5) /hpf Urine Bacteria Many H (FEW) /hpf Urine Mucus Few (FEW) /hpf 03/14/20 03/14/20 03/14/20 Range/Units 17:50 17:50 17:50 WBC (3.98-10.04) K/mm3 RBC (3.98-5.22) M/mm3 Hgb (11.2-15.7) gm/dl Hct (34.1-44.9) % MCV (79.4-94.8) fl MCH (25.6-32.2) pg MCHC (32.2-35.5) g/dl RDW Std Deviation (36.4-46.3) fL Plt Count (182-369) K/mm3 MPV (9.4-12.3) fl Neutrophils % (Manual) (40-60) % Band Neutrophils % (0-10) % Lymphocytes % (Manual) (20-40) % Atypical Lymphs % % Monocytes % (Manual) (2-10) % Eosinophils % (Manual) (0.7-5.8) % Basophils % (Manual) (0.1-1.2) Platelet Estimate Anisocytosis Macrocytosis Ovalocytes RBC Morph Comment ESR 25 H (0-20) mm/hr PT (9.7-12.0) SECONDS INR APTT (22-31) SECONDS Sodium 138 (136-145) mEq/L Potassium 3.6 (3.5-5.1) mEq/L Chloride 102 (98-107) mEq/L Carbon Dioxide 30 (21-32) mEq/L Anion Gap 9.6 (5-15) BUN 22 H (7-18) mg/dL Creatinine 1.1 H (0.55-1.02) mg/dL Est Cr Clr Drug Dosing 37.57 mL/min Estimated GFR (MDRD) 48 (>60) mL/min BUN/Creatinine Ratio 20.0 H (14-18) Glucose 120 H (83-115) mg/dL Lactic Acid (0.4-2.0) mmol/L Calcium 8.9 (8.5-10.1) mg/dL Magnesium 1.2 L (1.8-2.4) mg/dl Total Bilirubin 1.5 H (0.2-1.0) mg/dL AST 21 (15-37) U/L ALT 10 L (14-59) U/L Alkaline Phosphatase 91 (46-116) U/L Troponin I < 0.017 (0.00-0.056) ng/mL C-Reactive Protein 12.0 H* (<1.0) mg/dL NT-Pro-B Natriuret Pep 427 (0-450) pg/mL Total Protein 6.1 L (6.4-8.2) g/dl Albumin 2.8 L (3.4-5.0) g/dl Globulin 3.3 gm/dL Albumin/Globulin Ratio 0.9 L (1-2) Urine Color (Yellow) Urine Appearance (Clear) Urine pH (5.0-8.0) Ur Specific [place] (1.005-1.030) Urine Protein (Negative) Urine Glucose (UA) (Negative) Urine Ketones (Negative) Urine Occult Blood (Negative) Urine Nitrite (Negative) Urine Bilirubin (Negative) Urine Urobilinogen (0.2-1.0) Ur Leukocyte Esterase (Negative) Urine RBC (0-5) /hpf Urine WBC (0-5) /hpf Ur Squamous Epith Cells (0-5) /hpf Urine Bacteria (FEW) /hpf Urine Mucus (FEW) /hpf 03/14/20 Range/Units 17:50 WBC (3.98-10.04) K/mm3 RBC (3.98-5.22) M/mm3 Hgb (11.2-15.7) gm/dl Hct (34.1-44.9) % MCV (79.4-94.8) fl MCH (25.6-32.2) pg MCHC (32.2-35.5) g/dl RDW Std Deviation (36.4-46.3) fL Plt Count (182-369) K/mm3 MPV (9.4-12.3) fl Neutrophils % (Manual) (40-60) % Band Neutrophils % (0-10) % Lymphocytes % (Manual) (20-40) % Atypical Lymphs % % Monocytes % (Manual) (2-10) % Eosinophils % (Manual) (0.7-5.8) % Basophils % (Manual) (0.1-1.2) Platelet Estimate Anisocytosis Macrocytosis Ovalocytes RBC Morph Comment ESR (0-20) mm/hr PT (9.7-12.0) SECONDS INR APTT (22-31) SECONDS Sodium (136-145) mEq/L Potassium (3.5-5.1) mEq/L Chloride (98-107) mEq/L Carbon Dioxide (21-32) mEq/L Anion Gap (5-15) BUN (7-18) mg/dL Creatinine (0.55-1.02) mg/dL Est Cr Clr Drug Dosing mL/min Estimated GFR (MDRD) (>60) mL/min BUN/Creatinine Ratio (14-18) Glucose (83-115) mg/dL Lactic Acid 1.2 (0.4-2.0) mmol/L Calcium (8.5-10.1) mg/dL Magnesium (1.8-2.4) mg/dl Total Bilirubin (0.2-1.0) mg/dL AST (15-37) U/L ALT (14-59) U/L Alkaline Phosphatase (46-116) U/L Troponin I (0.00-0.056) ng/mL C-Reactive Protein (<1.0) mg/dL NT-Pro-B Natriuret Pep (0-450) pg/mL Total Protein (6.4-8.2) g/dl Albumin (3.4-5.0) g/dl Globulin gm/dL Albumin/Globulin Ratio (1-2) Urine Color (Yellow) Urine Appearance (Clear) Urine pH (5.0-8.0) Ur Specific [place] (1.005-1.030) Urine Protein (Negative) Urine Glucose (UA) (Negative) Urine Ketones (Negative) Urine Occult Blood (Negative) Urine Nitrite (Negative) Urine Bilirubin (Negative) Urine Urobilinogen (0.2-1.0) Ur Leukocyte Esterase (Negative) Urine RBC (0-5) /hpf Urine WBC (0-5) /hpf Ur Squamous Epith Cells (0-5) /hpf Urine Bacteria (FEW) /hpf Urine Mucus (FEW) /hpf Meds: Medications Generic Name Dose Route Start Last Admin Trade Name Freq PRN Reason Stop Dose Admin Acetaminophen 650 mg 03/14/20 20:58 03/15/20 03:46 Tylenol PO 650 mg Q4H PRN Administration Pain (Mild 1-3)/fever Hydrocodone Bitart/Acetaminophen 1 tab 03/15/20 14:37 03/17/20 04:15 [place] 325-5 Mg PO 1 tab Q4H PRN Administration Pain (moderate 4-6) Enoxaparin Sodium 40 mg 03/15/20 09:00 03/17/20 09:21 Lovenox SUBCUT 40 mg DAILY [facility] Administration Furosemide 40 mg 03/15/20 16:15 03/17/20 09:19 Lasix PO 40 mg DAILY [facility] Administration Levofloxacin 750 mg 03/17/20 16:00 Levaquin PO 1600 [facility] Magnesium Oxide 400 mg 03/17/20 09:30 03/17/20 10:51 Magnesium Oxide PO 400 mg BID [facility] Administration Metoprolol Succinate 50 mg 03/15/20 16:15 03/17/20 09:19 Toprol Xl PO 50 mg DAILY [facility] Administration Nystatin 1 gm 03/15/20 09:00 03/17/20 09:13 Nystop TOP 1 applic TID [facility] Administration Sodium Chloride 10 ml 03/16/20 08:05 Saline Flush FLUSH ASDIRECTED PRN Keep Vein Open Venlafaxine HCl 150 mg 03/15/20 16:15 03/17/20 09:20 Effexor Xr PO 150 mg DAILY [facility] Administration Discontinued Medications Generic Name Dose Route Start Last Admin Trade Name Freq PRN Reason Stop Dose Admin Acetaminophen 650 mg 03/14/20 18:17 03/14/20 18:42 Tylenol PO 03/14/20 18:18 650 mg NOW ONE Administration Al Hydroxide/Mg Hydroxide 30 ml 03/17/20 04:02 03/17/20 04:21 Mag-Al Plus PO 03/17/20 04:03 Not Given ONETIME ONE Diphenhydramine HCl 25 mg 03/16/20 10:45 03/16/20 11:04 Benadryl PO 03/16/20 10:46 25 mg ONETIME ONE Administration Furosemide 60 mg 03/14/20 18:35 03/14/20 18:42 Lasix IVPUSH 03/14/20 18:36 60 mg NOW ONE Administration Sodium Chloride 1,000 mls @ 50 mls/hr 03/14/20 18:00 03/15/20 14:05 Normal Saline IV 50 mls/hr ASDIRECTED [facility] Administration Ceftriaxone Sodium 2 gm/ 100 mls @ 200 mls/hr 03/14/20 18:45 03/15/20 17:45 Sodium Chloride IV 200 mls/hr Q24H [facility] Administration Vancomycin HCl 2 gm/ Sodium 250 mls @ 250 mls/hr 03/14/20 18:41 03/14/20 18: 51 Chloride IV 03/14/20 19:40 250 mls/hr ONETIME ONE Administration Magnesium Sulfate 2 gm/ Premix 50 mls @ 25 mls/hr 03/14/20 19:55 03/14/20 20: 10 IV 03/14/20 21:54 25 mls/hr ONETIME ONE Administration Vancomycin HCl 1.75 gm/ Sodium 500 mls @ 250 mls/hr 03/15/20 21:00 Chloride IV Q24H [facility] Magnesium Sulfate 4 gm/ Premix 50 mls @ 12.5 mls/hr 03/15/20 08:56 03/15/20 09:18 IV 03/15/20 12:55 12.5 mls/hr ONETIME ONE Administration Vancomycin HCl 1 gm/ 250 mls @ 167 mls/hr 03/15/20 13:00 03/16/20 06:10 Vancomycin HCl 250 mg/ Sodium IV 167 mls/hr Chloride Q18H [facility] Administration Magnesium Sulfate 4 gm/ Premix 50 mls @ 12.5 mls/hr 03/16/20 08:15 03/16/20 08:23 IV 03/16/20 12:14 12.5 mls/hr ONETIME ONE Administration Magnesium Sulfate 4 gm/ Premix 50 mls @ 12.5 mls/hr 03/17/20 08:00 03/17/20 09:15 IV 03/17/20 11:59 12.5 mls/hr ONETIME ONE Administration Levofloxacin 750 mg 03/16/20 16:00 Levaquin PO Q24H [facility] Levofloxacin 750 mg 03/16/20 16:00 03/16/20 16:48 Levaquin PO 750 mg Q48H [facility] Administration Potassium Chloride 40 meq 03/15/20 08:56 03/15/20 09:17 Klor-Con M20 PO 03/15/20 08:57 40 meq ONETIME ONE Administration Potassium Chloride 40 meq 03/15/20 18:00 03/15/20 17:28 Klor-Con M20 PO 03/15/20 18:01 40 meq ONETIME ONE Administration Potassium Chloride 40 meq 03/17/20 07:28 03/17/20 09:18 Klor-Con M20 PO 03/17/20 07:29 40 meq ONETIME ONE Administration Vancomycin HCl 0 dose 03/14/20 21:00 Pharmacy To Dose - Vancomycin .XX ASDIRECTED PRN RX TO DOSE VANCOMYCIN Venlafaxine HCl 37.5 mg 03/15/20 16:15 03/15/20 17:34 Effexor Xr PO Not Given DAILY [facility] - Radiology Interpretation Free Text/Narrative:: 74-year-old female presents to the ED by [place] [facility]. She is morbidly obese and due to pain and severe dependent edema in both of her lower extremities she can no longer ambulate and look after herself. She presents with fever and chills of 3 days duration. She has chronic venous stasis dermatitis and ulceration of both lower extremities that are quite painful for the last week to 10 days. She usually is able to get around with a walker. She arrived incontinent of urine and stool. She states it simply runs out of her and she cannot get to the bathroom. She reports she has been homebound and not able to get some of her prescriptions and she cannot remember what she is taking and what she is not taking. One of her medicines is Lasix. Clinically she is febrile. I suspected secondary to cellulitis of both lower extremities. Cannot rule out urinary tract infection although I think she smells strongly because of incontinence for a lengthy period of time. Plan will be to have a Tellez catheter placed that she is not able to weight-bear or walk or get out of bed. She is going to require Lasix due to the severe edema in her both lower extremities. She clinically has a component of heart failure as well. 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 Portable chest x- ray to be done. Septic work-up to include lactic acid blood cultures x2. Cultures from her left anterior leg as it is oozing serous material be obtained. Anaerobic and aerobic. Be given Rocephin 2 g IV followed by vancomycin 2 g IV as soon as blood cultures x2 are collected. - Re-Assessments/Exams Free Text/Narrative Re-Assessment/Exam: 03/14/20 19:08 Chest x-ray done portably reveals mild hyperinflated lung griffiths. Cardiac silhouette is within normal limits. Mild diffuse vascular congestion per portable technique. Labs reveal a normal white count at 7.23 with 67% neutrophils and 1% bands reported. Hemoglobin slightly low at 11.7 with hematocrit of 37.5. MCV is elevated at 99.7. Platelet count 224,000. The slide reveals 1+ anisocytosis and 1+ macrocytosis 1+ ovalocytes. PT is 11.9 with an INR of 1.10. PTT is 31. Sodium 138 with a potassium of 3.6. Chloride 102 with a bicarb of 30. Anion gap is 9.6 BUN is 22 with a creatinine of 1.1. GFR is 48 I stage III chronic kidney disease. Glucose is 120. Lactic acid is 1.2. Calcium is 8.9. Magnesium is very low at 1.2. Total bilirubin mildly elevated at 1.5. AST is 21 with an ALT of 10 and alk phosphatase of 91. 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 Troponin I is less than 0.017. C- reactive protein is elevated at 12.0. BNP is elevated at 427. Total protein is 6.1 low with an albumin fraction of 2.8 which is low. Urinalysis is not reported. Care transferred to Dr. Houston as it is change of shift. Departure - Departure Condition: Fair Sepsis Event Note - Evaluation Sepsis Screening Result: No Definite Risk - Focused Exam Date Exam was Performed: 03/17/20 Time Exam was Performed: 13:44
[2020-03-14] MEDS: Sodium Chloride 0.9% 1,000 ML IV SCH (18:03)
[2020-03-14] MEDS ORDERED: Acetaminophen 325 MG Tab PO ONE (18:17)
[2020-03-14] MEDS ORDERED: Furosemide 40 MG/4 ML VIAL IVPUSH ONE (18:35)
[2020-03-14] MEDS: cefTRIAXone 2 GM in Sodium Chloride 0.9% 100 ML IV SCH (18:51)
[2020-03-14] MEDS ORDERED: Magnesium Sulfate/Water 2 GM in Premix Bag 1 BAG IV ONE (19:55)
[2020-03-14] MEDS ORDERED: Acetaminophen 325 MG Tab PO PRN (20:58)
--- NOTE | 2020-03-14 21:34 | PCM.HP.2 ---
H&P History of Present Illness - General Date of Service: 03/14/20 Admit Problem/Dx: Admission Diagnosis/Problem Admission Diagnosis/Problem Urinary tract infection - History of Present Illness Initial Comments - Free Text/Narative: 74-year-old female was brought into the emergency department per her [facility]. I was unable to get a history from her because she was obtunded, therefore history is based on emergency department's notes. Apparently the patient has a lady that comes and cleans her house who has been recommending that she seek medical attention for the last several days. Reportedly she had a fever 101 degrees, lost her appetite, experiencing chills and hot spells but the patient had not taken her temperature. The house cleaning lady apparently took her temperature and called EMS. She has chronic venous stasis and now has open wounds along both lower extremities that are seeping. Legs become more swollen and she is having difficulty walking. She was incontinent of urine and stool when she arrived at the emergency department. Patient is on Lasix for chronic dependent edema. She has extensive candidiasis/intertrigo along both inguinal regions and pannus folds of her abdomen. Redness and erythema consistent with a true high of the perineum and vulva. Unknown if she has gained any weight or lost any weight recently. In the emergency department she was afebrile with blood pressure 129/54, respiratory rate of 16, heart rate 98, pulse ox 98%. Labs show white count 7.23 with 67% neutrophils and 1% bands, hemoglobin 11.7, platelets 224, normal sodium and potassium, no anion gap, magnesium 1.2, BUN 22, creatinine 1.1, estimated GFR 48, lactic acid 1.2. proBNP 427, albumin 2.8. UA showed WBC too numerous to count with many bacteria. 1+ ketones 2+ occult blood. Patient usually can get around with a walker but recently she has been unable to get to the bathroom and she has had just stool and urine run out. She has not been able to get some of her medications and she is not sure which medication she has been taking. Tellez catheter was placed in the emergency department. She was started on vancomycin and Rocephin in the emergency department. - Related Data Allergies/Adverse Reactions: Allergies Allergy/AdvReac Type Severity Reaction Status Date / Time No Known Allergies Allergy Verified 07/01/19 03:56 Home Medications: Home Meds Furosemide [Lasix] 20 mg PO DAILY PRN 12/07/17 [History] Metoprolol Succinate [Toprol XL 100mg] 50 mg PO DAILY 12/07/17 [History] Venlafaxine HCl [Venlafaxine ER] 150 mg PO DAILY 12/07/17 [History] Magnesium Oxide 400 mg PO BID #10 tablet 06/28/19 [Rx] Fesoterodine Fumarate [Toviaz] 8 mg PO DAILY 07/01/19 [History] Levalbuterol Tartrate [Xopenex Hfa] 2 puff INH Q4HR PRN 07/01/19 [History] Venlafaxine [Effexor XR] 37.5 mg PO DAILY #30 cap.er 07/09/19 [Rx] Acetaminophen [Tylenol] 500 mg PO TID 03/14/20 [History] Methyl B12 Plus 1 tab PO DAILY 03/14/20 [History] Past Medical History HEENT History: Reports: Impaired Vision Other HEENT History: Wears glasses Cardiovascular History: Reports: Hypertension Respiratory History: Reports: Asthma Gastrointestinal History: Reports: Chronic Constipation Genitourinary History: Reports: Urinary Incontinence WELDING SPECIALIST History: Reports: Endometriosis Musculoskeletal History: Reports: Osteoarthritis Neurological History: Reports: Other (See Below) Psychiatric History: Reports: Anxiety Endocrine/Metabolic History: Reports: Obesity/BMI 30+ Immunologic History: Reports: None Oncologic (Cancer) History: Reports: None Dermatologic History: Reports: Chronic Cellulitis, Other (See Below) Other Dermatologic History: sentitive skin, "break out easy" - Past Surgical History HEENT Surgical History: Reports: Tonsillectomy GI Surgical History: Reports: Colonoscopy, EGD Female Surgical History: Reports: Hysterectomy Social & Family History - Family History Family Medical History: Noncontributory - Tobacco Use Smoking Status *Q: Former Smoker Used Tobacco, but Quit: Yes Month/Year Tobacco Last Used: 30yr - Caffeine Use Caffeine Use: Reports: Coffee, Soda Other Caffeine Use: some days 1-2 cups of coffee other days 3-4. - Recreational Drug Use Recreational Drug Use: No - Living Situation & Occupation Living situation: Reports: , Alone (in an apartment) Occupation: Retired H&P Review of Systems - Review of Systems: Review Of Systems: Unable To Obtain Reason Not Obtained: Obtunded Exam - Exam Exam: See Below - Vital Signs Vital Signs: Last Vital Signs Temp 98.4 F 03/14/20 19:33 Pulse 98 03/14/20 19:33 Resp 16 03/14/20 19:33 BP 129/54 L 03/14/20 19:33 Pulse Ox 98 03/14/20 19:33 Weight: 243 lb - Exam Quality Assessment: Supplemental Oxygen General: Obtunded. No: Alert HEENT: Conjunctiva Clear, Hearing Intact, Mucosa Moist & [place] Neck: Supple, Trachea Midline, 2 Lungs: Crackles (Mild crackles) Cardiovascular: Regular Rate, Regular Rhythm, Systolic Murmur (Best heard in the second left intercostal space.) GI/Abdominal Exam: Normal Bowel Sounds, Soft, Non-Tender, No Organomegaly, No Distention, No Abnormal Bruit, No Mass Extremities: Normal Capillary Refill, Pedal Edema (4+ pitting edema bilaterally to above the knees), Limited Range of Motion (Unable to lift legs off the gurney ), Redness. No: Normal Range of Motion Skin: Other (Erythema of the bilateral lower extremities with circumferential yellow crusting and oozing serous material. Warm and red along both lower extremities in the same area. Discoloration of both legs consistent with stasis dermatitis. Ulcerations. Patient has severe erythema from the anterior iliac spine to the anterior leg spine bilaterally with erythema of the pannus the lower abdomen.) - Patient Data Lab Results Last 24 hrs: Laboratory Results - last 24 hr 03/14/20 03/14/20 03/14/20 Range/Units 17:20 17:50 17:50 WBC 7.23 (3.98-10.04) K/mm3 RBC 3.76 L (3.98-5.22) M/mm3 Hgb 11.7 (11.2-15.7) gm/dl Hct 37.5 (34.1-44.9) % MCV 99.7 H (79.4-94.8) fl MCH 31.1 (25.6-32.2) pg MCHC 31.2 L (32.2-35.5) g/dl RDW Std Deviation 47.8 H (36.4-46.3) fL Plt Count 224 (182-369) K/mm3 MPV 10.2 (9.4-12.3) fl Neutrophils % (Manual) 67 H (40-60) % Band Neutrophils % 1 (0-10) % Lymphocytes % (Manual) 21 (20-40) % Atypical Lymphs % 0 % Monocytes % (Manual) 9 (2-10) % Eosinophils % (Manual) 2 (0.7-5.8) % Basophils % (Manual) 0 L (0.1-1.2) Platelet Estimate Adequate Anisocytosis 1+ slight Macrocytosis 1+ slight Ovalocytes 1+ slight RBC Morph Comment Not Reportable ESR (0-20) mm/hr PT 11.9 (9.7-12.0) SECONDS INR 1.10 APTT 31 (22-31) SECONDS Sodium (136-145) mEq/L Potassium (3.5-5.1) mEq/L Chloride (98-107) mEq/L Carbon Dioxide (21-32) mEq/L Anion Gap (5-15) BUN (7-18) mg/dL Creatinine (0.55-1.02) mg/dL Est Cr Clr Drug Dosing mL/min Estimated GFR (MDRD) (>60) mL/min BUN/Creatinine Ratio (14-18) Glucose (83-115) mg/dL Lactic Acid (0.4-2.0) mmol/L Calcium (8.5-10.1) mg/dL Magnesium (1.8-2.4) mg/dl Total Bilirubin (0.2-1.0) mg/dL AST (15-37) U/L ALT (14-59) U/L Alkaline Phosphatase (46-116) U/L Troponin I (0.00-0.056) ng/mL C-Reactive Protein (<1.0) mg/dL NT-Pro-B Natriuret Pep (0-450) pg/mL Total Protein (6.4-8.2) g/dl Albumin (3.4-5.0) g/dl Globulin gm/dL Albumin/Globulin Ratio (1-2) Urine Color Yellow (Yellow) Urine Appearance Cloudy H (Clear) Urine pH 6.0 (5.0-8.0) Ur Specific [place] > or = 1.030 (1.005-1.030) Urine Protein 2+ H (Negative) Urine Glucose (UA) Negative (Negative) Urine Ketones 1+ H (Negative) Urine Occult Blood 2+ H (Negative) Urine Nitrite Negative (Negative) Urine Bilirubin 1+ H (Negative) Urine Urobilinogen 1.0 (0.2-1.0) Ur Leukocyte Esterase 2+ H (Negative) Urine RBC 5-10 H (0-5) /hpf Urine WBC Too numerous to cnt H (0-5) /hpf Ur Squamous Epith Cells 5-10 H (0-5) /hpf Urine Bacteria Many H (FEW) /hpf Urine Mucus Few (FEW) /hpf 03/14/20 03/14/20 03/14/20 Range/Units 17:50 17:50 17:50 WBC (3.98-10.04) K/mm3 RBC (3.98-5.22) M/mm3 Hgb (11.2-15.7) gm/dl Hct (34.1-44.9) % MCV (79.4-94.8) fl MCH (25.6-32.2) pg MCHC (32.2-35.5) g/dl RDW Std Deviation (36.4-46.3) fL Plt Count (182-369) K/mm3 MPV (9.4-12.3) fl Neutrophils % (Manual) (40-60) % Band Neutrophils % (0-10) % Lymphocytes % (Manual) (20-40) % Atypical Lymphs % % Monocytes % (Manual) (2-10) % Eosinophils % (Manual) (0.7-5.8) % Basophils % (Manual) (0.1-1.2) Platelet Estimate Anisocytosis Macrocytosis Ovalocytes RBC Morph Comment ESR 25 H (0-20) mm/hr PT (9.7-12.0) SECONDS INR APTT (22-31) SECONDS Sodium 138 (136-145) mEq/L Potassium 3.6 (3.5-5.1) mEq/L Chloride 102 (98-107) mEq/L Carbon Dioxide 30 (21-32) mEq/L Anion Gap 9.6 (5-15) BUN 22 H (7-18) mg/dL Creatinine 1.1 H (0.55-1.02) mg/dL Est Cr Clr Drug Dosing 37.57 mL/min Estimated GFR (MDRD) 48 (>60) mL/min BUN/Creatinine Ratio 20.0 H (14-18) Glucose 120 H (83-115) mg/dL Lactic Acid (0.4-2.0) mmol/L Calcium 8.9 (8.5-10.1) mg/dL Magnesium 1.2 L (1.8-2.4) mg/dl Total Bilirubin 1.5 H (0.2-1.0) mg/dL AST 21 (15-37) U/L ALT 10 L (14-59) U/L Alkaline Phosphatase 91 (46-116) U/L Troponin I < 0.017 (0.00-0.056) ng/mL C-Reactive Protein 12.0 H* (<1.0) mg/dL NT-Pro-B Natriuret Pep 427 (0-450) pg/mL Total Protein 6.1 L (6.4-8.2) g/dl Albumin 2.8 L (3.4-5.0) g/dl Globulin 3.3 gm/dL Albumin/Globulin Ratio 0.9 L (1-2) Urine Color (Yellow) Urine Appearance (Clear) Urine pH (5.0-8.0) Ur Specific [place] (1.005-1.030) Urine Protein (Negative) Urine Glucose (UA) (Negative) Urine Ketones (Negative) Urine Occult Blood (Negative) Urine Nitrite (Negative) Urine Bilirubin (Negative) Urine Urobilinogen (0.2-1.0) Ur Leukocyte Esterase (Negative) Urine RBC (0-5) /hpf Urine WBC (0-5) /hpf Ur Squamous Epith Cells (0-5) /hpf Urine Bacteria (FEW) /hpf Urine Mucus (FEW) /hpf // Range/Units 17:50 WBC (3.98-10.04) K/mm3 RBC (3.98-5.22) M/mm3 Hgb (11.2-15.7) gm/dl Hct (34.1-44.9) % MCV (79.4-94.8) fl MCH (25.6-32.2) pg MCHC (32.2-35.5) g/dl RDW Std Deviation (36.4-46.3) fL Plt Count (182-369) K/mm3 MPV (9.4-12.3) fl Neutrophils % (Manual) (40-60) % Band Neutrophils % (0-10) % Lymphocytes % (Manual) (20-40) % Atypical Lymphs % % Monocytes % (Manual) (2-10) % Eosinophils % (Manual) (0.7-5.8) % Basophils % (Manual) (0.1-1.2) Platelet Estimate Anisocytosis Macrocytosis Ovalocytes RBC Morph Comment ESR (0-20) mm/hr PT (9.7-12.0) SECONDS INR APTT (22-31) SECONDS Sodium (136-145) mEq/L Potassium (3.5-5.1) mEq/L Chloride (98-107) mEq/L Carbon Dioxide (21-32) mEq/L Anion Gap (5-15) BUN (7-18) mg/dL Creatinine (0.55-1.02) mg/dL Est Cr Clr Drug Dosing mL/min Estimated GFR (MDRD) (>60) mL/min BUN/Creatinine Ratio (14-18) Glucose (83-115) mg/dL Lactic Acid 1.2 (0.4-2.0) mmol/L Calcium (8.5-10.1) mg/dL Magnesium (1.8-2.4) mg/dl Total Bilirubin (0.2-1.0) mg/dL AST (15-37) U/L ALT (14-59) U/L Alkaline Phosphatase (46-116) U/L Troponin I (0.00-0.056) ng/mL C-Reactive Protein (<1.0) mg/dL NT-Pro-B Natriuret Pep (0-450) pg/mL Total Protein (6.4-8.2) g/dl Albumin (3.4-5.0) g/dl Globulin gm/dL Albumin/Globulin Ratio (1-2) Urine Color (Yellow) Urine Appearance (Clear) Urine pH (5.0-8.0) Ur Specific [place] (1.005-1.030) Urine Protein (Negative) Urine Glucose (UA) (Negative) Urine Ketones (Negative) Urine Occult Blood (Negative) Urine Nitrite (Negative) Urine Bilirubin (Negative) Urine Urobilinogen (0.2-1.0) Ur Leukocyte Esterase (Negative) Urine RBC (0-5) /hpf Urine WBC (0-5) /hpf Ur Squamous Epith Cells (0-5) /hpf Urine Bacteria (FEW) /hpf Urine Mucus (FEW) /hpf Result Diagrams: 03/15/20 04:50 03/15/20 04:50 Sepsis Event Note - Evaluation Sepsis Screening Result: No Definite Risk - Focused Exam Vital Signs: Vital Signs Temp Temp Pulse Resp BP Pulse Ox 03/14/20 19:33 98.4 F 98 16 129/54 L 98 03/14/20 18:42 98.8 F 03/14/20 17:24 98.2 F 102 H 20 143/50 H 94 L Date Exam was Performed: 03/15/20 Time Exam was Performed: 16:03 Problem List Initiated/Reviewed/Updated: Yes Orders Last 24hrs: Active Orders 24 hr Category Date Time Status Admission Status [Patient Status] [ADT] Routine ADT 03/14/20 20:16 Active Tellez Catheter Insertion [Insert Urinary Catheter] [OM. Care 03/14/20 18:45 Ordered PC] Q24H Oxygen Therapy [RC] ASDIRECTED Care 03/14/20 17:53 Active Oxygen Therapy [RC] PRN Care 03/14/20 20:58 Active Up With Assistance [RC] ASDIRECTED Care 03/14/20 20:58 Active Urinary Catheter Assessment [RC] ASDIRECTED Care 03/14/20 18:33 Active VTE/DVT Education [RC] PER UNIT ROUTINE Care 03/14/20 20:58 Active Vital Signs [RC] Q4H Care 03/14/20 20:58 Active PT Evaluation and Treatment [CONS] Routine Cons 03/14/20 20:58 Active Regular Diet [DIET] Diet 03/15/20 Breakfast Active Chest 1V Frontal [CR] Stat Exams 03/14/20 17:52 Taken CULTURE ANAEROBIC + SMEAR [RM] Stat Lab 03/14/20 18:45 Received CULTURE BLOOD [BC] Stat Lab 03/14/20 17:50 Received CULTURE BLOOD [BC] Stat Lab 03/14/20 17:55 Received CULTURE URINE [RM] Stat Lab 03/14/20 17:20 Received Acetaminophen [Tylenol] Med 03/14/20 20:58 Active 650 mg PO Q4H PRN Enoxaparin [Lovenox] Med 03/15/20 09:00 Active 40 mg SUBCUT DAILY Magnesium Sulfate/Water [Magnesium Sulfate in Water Med 03/14/20 19:55 Active Premix] 2 gm Premix Bag 1 bag IV ONETIME Nystatin [Nystop] Med 03/15/20 09:00 Active 1 gm TOP TID Pharmacy to Dose - Vancomycin Med 03/14/20 21:00 Pending 1 dose .XX ASDIRECTED Sodium Chloride 0.9% [Normal Saline] 1,000 ml Med 03/14/20 18:00 Active IV ASDIRECTED cefTRIAXone [Rocephin] 2 gm Med 03/14/20 18:45 Active Sodium Chloride 0.9% [Normal Saline] 100 ml IV Q24H Blood Culture x2 Reflex Set [OM.PC] Stat Oth 03/14/20 17:54 Ordered Resuscitation Status Routine Resus Stat 03/14/20 20:58 Ordered Medication Orders Acetaminophen (Tylenol) 650 mg PO Q4H PRN PRN Reason: Pain (Mild 1-3)/fever Enoxaparin Sodium (Lovenox) 40 mg SUBCUT DAILY [facility] Sodium Chloride (Normal Saline) 1,000 mls @ 50 mls/hr IV ASDIRECTED [facility] Last Admin: 03/14/20 18:03 Dose: 50 mls/hr Ceftriaxone Sodium 2 gm/ (Sodium Chloride) 100 mls @ 200 mls/hr IV Q24H [facility] Last Admin: 03/14/20 18:51 Dose: 200 mls/hr Magnesium Sulfate 2 gm/ Premix 50 mls @ 25 mls/hr IV ONETIME ONE Stop: 03/14/20 21:54 Last Admin: 03/14/20 20:10 Dose: 25 mls/hr Nystatin (Nystop) 1 gm TOP TID [facility] Vancomycin HCl (Pharmacy To Dose - Vancomycin) 1 dose .XX ASDIRECTED [facility] Assessment/Plan Comment:: Failure to thrive * Patient clearly cannot take care of herself. * She was admitted in June of last year 2 times with similar concerns and recommendations at that time were for her to go to senior living rehab. Patient refused both times. * Patient has signs of malnutrition with low albumin 2.8. * Troponin I less than 0.017 Plan * Admit to floor for wound care * PT/OT/social work, case management consults * Dietary consult * Unfortunately some of these will not be able to be done because of the weekend. Bilateral lower extremity cellulitis Chronic lower extremity edema Stasis dermatitis * Reportedly fever of 101 at home per housecleaning provider * Unknown if she is taking her medications appropriately * In the emergency department she was started on Rocephin and vancomycin * Blood cultures and wound cultures obtained * Normal WBC of 7.23 and lactic acid of 1.2 * Elevated sed rate of 25 * C-reactive protein 12.0 * proBNP normal at 427 * Patient reportedly on Lasix in the morning PRN Plan * Continue vancomycin and Rocephin * Await culture results * PT for wound care * Follow CBC, C-reactive protein, and sed rate Chronic renal insufficiency stage III Hypomagnesemia * BUN 22, creatinine 1.1, estimated GFR 48 * Mild prerenal disease with BUN/creatinine ratio of 20 * Magnesium 1.2 Plan * Cautious rehydration * Recheck CMP * Supplement magnesium and recheck Urinary tract infection Urinary and fecal incontinence Intertrigo * Patient was soiled when she had arrived to the emergency department * Diffuse intertrigo in the perineum, pannus, buttocks, inguinal folds Plan * Tellez catheter placed in the emergency department. Continue with Tellez for a couple of days to treat the diffuse intertrigo. * Rocephin * Urine culture * Nystatin powder 3 times daily to area of concern Hypertension * Patient is reportedly on metoprolol Plan * Confirm home meds and restart appropriately VTE prophylaxis with Lovenox CODE STATUS: Full code Disposition: Admit to floor. Patient would benefit from senior living facility care after treatment in the emergency room. There is a likelihood that she will need long-term care. - Mortality Measure Prognosis:: Poor
[2020-03-15] MEDS: Enoxaparin 40 MG/0.4 ML Syringe SUBCUT SCH (08:18)
[2020-03-15] MEDS ORDERED: Potassium Chloride 20 MEQ Tab.ER PO ONE ×2 (08:56→18:00)
[2020-03-15] MEDS ORDERED: Magnesium Sulfate/Water 4 GM in Premix Bag 1 BAG IV ONE (08:56)
[2020-03-15] MEDS: Nystatin Topical Powder 15 GM Bottle TOP SCH ×3 (09:00→23:03)
--- NOTE | 2020-03-15 10:02 | CR ---
Chest: Portable view of the chest was obtained. Comparison: Prior chest x-ray of 12/07/17. Heart size is normal. Tortuous thoracic aorta is seen. Lungs show no acute parenchymal change. Bony structures are grossly intact. Impression: 1. Nothing acute is identified on portable chest x-ray. Diagnostic code #1 This report was dictated in MDT
[2020-03-15] MEDS: Sodium Chloride 0.9% 1,000 ML IV SCH (14:05)
[2020-03-15] MEDS: Vancomycin 1 GM, Vancomycin 250 MG in Sodium Chloride 0.9% 250 ML IV SCH (14:05)
[2020-03-15] MEDS: Acetaminophen/HYDROcodone 325-5 MG Tab PO PRN ×2 (15:17→21:22)
--- NOTE | 2020-03-15 16:09 | PCM.PN ---
- General Info Date of Service: 03/15/20 Admission Dx/Problem (Free Text): Admission Diagnosis/Problem Admission Diagnosis/Problem Urinary tract infection Subjective Update: Patient is much more awake and alert today. She is complaining of lower extremity pain. Functional Status: Denies: Pain Controlled - Review of Systems General: Reports: No Symptoms HEENT: Reports: No Symptoms Pulmonary: Reports: No Symptoms Cardiovascular: Reports: No Symptoms Gastrointestinal: Reports: No Symptoms Musculoskeletal: Reports: Leg Pain Psychiatric: Reports: No Symptoms - Patient Data Vitals - Most Recent: Last Vital Signs Temp 98.2 F 03/15/20 14:37 Pulse 97 03/15/20 14:37 Resp 18 03/15/20 14:37 BP 158/62 H 03/15/20 14:37 Pulse Ox 100 03/15/20 14:37 Weight - Most Recent: 243 lb I&O - Last 24 Hours: Intake & Output 03/15/20 03/15/20 03/15/20 06:59 14:59 22:59 Intake Total 360 120 Output Total 2700 Balance -2340 120 Lab Results Last 24 Hours: Laboratory Results - last 24 hr 03/14/20 03/14/20 03/14/20 Range/Units 17:20 17:50 17:50 WBC 7.23 (3.98-10.04) K/mm3 RBC 3.76 L (3.98-5.22) M/mm3 Hgb 11.7 (11.2-15.7) gm/dl Hct 37.5 (34.1-44.9) % MCV 99.7 H (79.4-94.8) fl MCH 31.1 (25.6-32.2) pg MCHC 31.2 L (32.2-35.5) g/dl RDW Std Deviation 47.8 H (36.4-46.3) fL Plt Count 224 (182-369) K/mm3 MPV 10.2 (9.4-12.3) fl Neut % (Auto) (34.0-71.1) % Lymph % (Auto) (19.3-51.7) % Floyd % (Auto) (4.7-12.5) % Eos % (Auto) (0.7-5.8) Baso % (Auto) (0.1-1.2) % Neut # (Auto) (1.56-6.13) K/mm3 Lymph # (Auto) (1.18-3.74) K/mm3 Floyd # (Auto) (0.24-0.36) K/mm3 Eos # (Auto) (0.04-0.36) K/mm3 Baso # (Auto) (0.01-0.08) K/mm3 Neutrophils % (Manual) 67 H (40-60) % Band Neutrophils % 1 (0-10) % Lymphocytes % (Manual) 21 (20-40) % Atypical Lymphs % 0 % Monocytes % (Manual) 9 (2-10) % Eosinophils % (Manual) 2 (0.7-5.8) % Basophils % (Manual) 0 L (0.1-1.2) Manual Slide Review Platelet Estimate Adequate Anisocytosis 1+ slight Macrocytosis 1+ slight Ovalocytes 1+ slight RBC Morph Comment Not Reportable ESR (0-20) mm/hr PT 11.9 (9.7-12.0) SECONDS INR 1.10 APTT 31 (22-31) SECONDS Sodium (136-145) mEq/L Potassium (3.5-5.1) mEq/L Chloride (98-107) mEq/L Carbon Dioxide (21-32) mEq/L Anion Gap (5-15) BUN (7-18) mg/dL Creatinine (0.55-1.02) mg/dL Est Cr Clr Drug Dosing mL/min Estimated GFR (MDRD) (>60) mL/min BUN/Creatinine Ratio (14-18) Glucose (83-115) mg/dL Lactic Acid (0.4-2.0) mmol/L Calcium (8.5-10.1) mg/dL Phosphorus (2.6-4.7) mg/dL Magnesium (1.8-2.4) mg/dl Total Bilirubin (0.2-1.0) mg/dL AST (15-37) U/L ALT (14-59) U/L Alkaline Phosphatase (46-116) U/L Troponin I (0.00-0.056) ng/mL C-Reactive Protein (<1.0) mg/dL NT-Pro-B Natriuret Pep (0-450) pg/mL Total Protein (6.4-8.2) g/dl Albumin (3.4-5.0) g/dl Globulin gm/dL Albumin/Globulin Ratio (1-2) Urine Color Yellow (Yellow) Urine Appearance Cloudy H (Clear) Urine pH 6.0 (5.0-8.0) Ur Specific [place] > or = 1.030 (1.005-1.030) Urine Protein 2+ H (Negative) Urine Glucose (UA) Negative (Negative) Urine Ketones 1+ H (Negative) Urine Occult Blood 2+ H (Negative) Urine Nitrite Negative (Negative) Urine Bilirubin 1+ H (Negative) Urine Urobilinogen 1.0 (0.2-1.0) Ur Leukocyte Esterase 2+ H (Negative) Urine RBC 5-10 H (0-5) /hpf Urine WBC Too numerous to cnt H (0-5) /hpf Ur Squamous Epith Cells 5-10 H (0-5) /hpf Urine Bacteria Many H (FEW) /hpf Urine Mucus Few (FEW) /hpf 03/14/20 03/14/20 03/14/20 Range/Units 17:50 17:50 17:50 WBC (3.98-10.04) K/mm3 RBC (3.98-5.22) M/mm3 Hgb (11.2-15.7) gm/dl Hct (34.1-44.9) % MCV (79.4-94.8) fl MCH (25.6-32.2) pg MCHC (32.2-35.5) g/dl RDW Std Deviation (36.4-46.3) fL Plt Count (182-369) K/mm3 MPV (9.4-12.3) fl Neut % (Auto) (34.0-71.1) % Lymph % (Auto) (19.3-51.7) % Floyd % (Auto) (4.7-12.5) % Eos % (Auto) (0.7-5.8) Baso % (Auto) (0.1-1.2) % Neut # (Auto) (1.56-6.13) K/mm3 Lymph # (Auto) (1.18-3.74) K/mm3 [place] # (Auto) (0.24-0.36) K/mm3 Eos # (Auto) (0.04-0.36) K/mm3 Baso # (Auto) (0.01-0.08) K/mm3 Neutrophils % (Manual) (40-60) % Band Neutrophils % (0-10) % Lymphocytes % (Manual) (20-40) % Atypical Lymphs % % Monocytes % (Manual) (2-10) % Eosinophils % (Manual) (0.7-5.8) % Basophils % (Manual) (0.1-1.2) Manual Slide Review Platelet Estimate Anisocytosis Macrocytosis Ovalocytes RBC Morph Comment ESR 25 H (0-20) mm/hr PT (9.7-12.0) SECONDS INR APTT (22-31) SECONDS Sodium 138 (136-145) mEq/L Potassium 3.6 (3.5-5.1) mEq/L Chloride 102 (98-107) mEq/L Carbon Dioxide 30 (21-32) mEq/L Anion Gap 9.6 (5-15) BUN 22 H (7-18) mg/dL Creatinine 1.1 H (0.55-1.02) mg/dL Est Cr Clr Drug Dosing 37.57 mL/min Estimated GFR (MDRD) 48 (>60) mL/min BUN/Creatinine Ratio 20.0 H (14-18) Glucose 120 H (83-115) mg/dL Lactic Acid (0.4-2.0) mmol/L Calcium 8.9 (8.5-10.1) mg/dL Phosphorus (2.6-4.7) mg/dL Magnesium 1.2 L (1.8-2.4) mg/dl Total Bilirubin 1.5 H (0.2-1.0) mg/dL AST 21 (15-37) U/L ALT 10 L (14-59) U/L Alkaline Phosphatase 91 (46-116) U/L Troponin I < 0.017 (0.00-0.056) ng/mL C-Reactive Protein 12.0 H* (<1.0) mg/dL NT-Pro-B Natriuret Pep 427 (0-450) pg/mL Total Protein 6.1 L (6.4-8.2) g/dl Albumin 2.8 L (3.4-5.0) g/dl Globulin 3.3 gm/dL Albumin/Globulin Ratio 0.9 L (1-2) Urine Color (Yellow) Urine Appearance (Clear) Urine pH (5.0-8.0) Ur Specific [place] (1.005-1.030) Urine Protein (Negative) Urine Glucose (UA) (Negative) Urine Ketones (Negative) Urine Occult Blood (Negative) Urine Nitrite (Negative) Urine Bilirubin (Negative) Urine Urobilinogen (0.2-1.0) Ur Leukocyte Esterase (Negative) Urine RBC (0-5) /hpf Urine WBC (0-5) /hpf Ur Squamous Epith Cells (0-5) /hpf Urine Bacteria (FEW) /hpf Urine Mucus (FEW) /hpf 03/14/20 03/15/20 03/15/20 Range/Units 17:50 04:50 04:50 WBC 7.75 (3.98-10.04) K/mm3 RBC 3.98 (3.98-5.22) M/mm3 Hgb 12.5 (11.2-15.7) gm/dl Hct 39.8 (34.1-44.9) % MCV 100.0 H (79.4-94.8) fl MCH 31.4 (25.6-32.2) pg MCHC 31.4 L (32.2-35.5) g/dl RDW Std Deviation 48.5 H (36.4-46.3) fL Plt Count 231 (182-369) K/mm3 MPV 10.4 (9.4-12.3) fl Neut % (Auto) 64.5 (34.0-71.1) % Lymph % (Auto) 18.3 L (19.3-51.7) % Floyd % (Auto) 15.5 H (4.7-12.5) % Eos % (Auto) 1.5 (0.7-5.8) Baso % (Auto) 0.1 (0.1-1.2) % Neut # (Auto) 4.99 (1.56-6.13) K/mm3 Lymph # (Auto) 1.42 (1.18-3.74) K/mm3 Floyd # (Auto) 1.20 H (0.24-0.36) K/mm3 Eos # (Auto) 0.12 (0.04-0.36) K/mm3 Baso # (Auto) 0.01 (0.01-0.08) K/mm3 Neutrophils % (Manual) (40-60) % Band Neutrophils % (0-10) % Lymphocytes % (Manual) (20-40) % Atypical Lymphs % % Monocytes % (Manual) (2-10) % Eosinophils % (Manual) (0.7-5.8) % Basophils % (Manual) (0.1-1.2) Manual Slide Review Abnormal smear Platelet Estimate Anisocytosis Macrocytosis Ovalocytes RBC Morph Comment ESR (0-20) mm/hr PT (9.7-12.0) SECONDS INR APTT (22-31) SECONDS Sodium 143 (136-145) mEq/L Potassium 3.1 L (3.5-5.1) mEq/L Chloride 101 (98-107) mEq/L Carbon Dioxide 34 H (21-32) mEq/L Anion Gap 11.1 (5-15) BUN 18 (7-18) mg/dL Creatinine 1.1 H (0.55-1.02) mg/dL Est Cr Clr Drug Dosing 37.57 mL/min Estimated GFR (MDRD) 48 (>60) mL/min BUN/Creatinine Ratio 16.4 (14-18) Glucose 102 (83-115) mg/dL Lactic Acid 1.2 (0.4-2.0) mmol/L Calcium 8.9 (8.5-10.1) mg/dL Phosphorus 2.7 (2.6-4.7) mg/dL Magnesium 1.5 L (1.8-2.4) mg/dl Total Bilirubin 0.9 (0.2-1.0) mg/dL AST 19 (15-37) U/L ALT 16 (14-59) U/L Alkaline Phosphatase 94 (46-116) U/L Troponin I (0.00-0.056) ng/mL C-Reactive Protein (<1.0) mg/dL NT-Pro-B Natriuret Pep (0-450) pg/mL Total Protein 6.3 L (6.4-8.2) g/dl Albumin 2.8 L (3.4-5.0) g/dl Globulin 3.5 gm/dL Albumin/Globulin Ratio 0.8 L (1-2) Urine Color (Yellow) Urine Appearance (Clear) Urine pH (5.0-8.0) Ur Specific [place] (1.005-1.030) Urine Protein (Negative) Urine Glucose (UA) (Negative) Urine Ketones (Negative) Urine Occult Blood (Negative) Urine Nitrite (Negative) Urine Bilirubin (Negative) Urine Urobilinogen (0.2-1.0) Ur Leukocyte Esterase (Negative) Urine RBC (0-5) /hpf Urine WBC (0-5) /hpf Ur Squamous Epith Cells (0-5) /hpf Urine Bacteria (FEW) /hpf Urine Mucus (FEW) /hpf [place]oy Results Last 24 Hours: Microbiology 03/14/20 17:20 Urine Culture - Preliminary Urine, Catheterized Gram Positive Cocci 03/14/20 18:45 Gram Stain - Final Leg, Left Anaerobic Culture - Preliminary Gram Positive Cocci Gram Negative Rods Med Orders - Current: Current Medications Acetaminophen (Tylenol) 650 mg PO Q4H PRN PRN Reason: Pain (Mild 1-3)/fever Last Admin: 03/15/20 03:46 Dose: 650 mg Hydrocodone Bitart/Acetaminophen (Mohler 325-5 Mg) 1 tab PO Q4H PRN PRN Reason: Pain (moderate 4-6) Last Admin: 03/15/20 15:17 Dose: 1 tab Enoxaparin Sodium (Lovenox) 40 mg SUBCUT DAILY [facility] Last Admin: 03/15/20 08:18 Dose: 40 mg Sodium Chloride (Normal Saline) 1,000 mls @ 50 mls/hr IV ASDIRECTED [facility] Last Admin: 03/15/20 14:05 Dose: 50 mls/hr Ceftriaxone Sodium 2 gm/ (Sodium Chloride) 100 mls @ 200 mls/hr IV Q24H [facility] Last Admin: 03/14/20 18:51 Dose: 200 mls/hr Vancomycin HCl 1 gm/Vancomycin HCl 250 mg/ Sodium Chloride 250 mls @ 167 mls/ hr IV Q18H [facility] Last Admin: 03/15/20 14:05 Dose: 167 mls/hr Nystatin (Nystop) 1 gm TOP TID [facility] Last Admin: 03/15/20 15:17 Dose: 1 applic Vancomycin HCl (Pharmacy To Dose - Vancomycin) 0 dose .XX ASDIRECTED PRN PRN Reason: RX TO DOSE VANCOMYCIN Discontinued Medications Acetaminophen (Tylenol) 650 mg PO NOW ONE Stop: 03/14/20 18:18 Last Admin: 03/14/20 18:42 Dose: 650 mg Furosemide (Lasix) 60 mg IVPUSH NOW ONE Stop: 03/14/20 18:36 Last Admin: 03/14/20 18:42 Dose: 60 mg Vancomycin HCl 2 gm/ Sodium (Chloride) 250 mls @ 250 mls/hr IV ONETIME ONE Stop: 03/14/20 19:40 Last Admin: 03/14/20 18:51 Dose: 250 mls/hr Magnesium Sulfate 2 gm/ Premix 50 mls @ 25 mls/hr IV ONETIME ONE Stop: 03/14/20 21:54 Last Admin: 03/14/20 20:10 Dose: 25 mls/hr Vancomycin HCl 1.75 gm/ Sodium (Chloride) 500 mls @ 250 mls/hr IV Q24H [facility] Magnesium Sulfate 4 gm/ Premix 50 mls @ 12.5 mls/hr IV ONETIME ONE Stop: 03/15/20 12:55 Last Admin: 03/15/20 09:18 Dose: 12.5 mls/hr Potassium Chloride (Klor-Con M20) 40 meq PO ONETIME ONE Stop: 03/15/20 08:57 Last Admin: 03/15/20 09:17 Dose: 40 meq - Exam General: Alert, Oriented HEENT: Pupils Equal, Mucous Membr. Moist/[place] Neck: Supple Lungs: Clear to Auscultation, Normal Respiratory Effort Cardiovascular: Regular Rate, Regular Rhythm GI/Abdominal Exam: Normal Bowel Sounds, Soft, Non-Tender, No Organomegaly, No Distention, No Abnormal Bruit, No Mass Back Exam: Normal Inspection, Full Range of Motion Extremities: Pedal Edema (4+ pitting edema above her knee to mid thigh.), Other Wound/Incisions: Dressing Dry and Intact Psy/Mental Status: Alert, Normal Affect, Normal Mood Sepsis Event Note - Evaluation Sepsis Screening Result: No Definite Risk - Focused Exam Vital Signs: Vital Signs Temp Pulse Resp BP Pulse Ox Pulse Ox 03/15/20 14:37 98.2 F 97 18 158/62 H 100 03/15/20 08:34 97 03/15/20 08:12 98.1 F 92 19 155/67 H 100 Date Exam was Performed: 03/15/20 Time Exam was Performed: 16:04 - Problem List Review Problem List Initiated/Reviewed/Updated: Yes - My Orders Last 24 Hours: My Active Orders 03/14/20 20:58 Oxygen Therapy [RC] PRN Up With Assistance [RC] ASDIRECTED VTE/DVT Education [RC] DAILY Vital Signs [RC] 00,04,08,12,16,20 PT Evaluation and Treatment [CONS] Routine Acetaminophen [Tylenol] 650 mg PO Q4H PRN Resuscitation Status Routine 03/14/20 21:00 Pharmacy to Dose - Vancomycin 0 dose .XX ASDIRECTED PRN 03/14/20 21:57 Consult to Case Management/Thinner Sprayer [CONS] Routine Consult to Dietary [Consult to Automatic Machines Supervisor] [CONS] Routine OT Evaluation and Treatment [CONS] Routine PT Evaluation and Treatment [CONS] Routine 03/15/20 09:00 Enoxaparin [Lovenox] 40 mg SUBCUT DAILY Nystatin [Nystop] 1 gm TOP TID 03/15/20 13:00 Vancomycin 1 gm Vancomycin 250 mg Sodium Chloride 0.9% [Normal Saline] 250 ml IV Q18H 03/15/20 14:37 Acetaminophen/HYDROcodone [Moh[place] 325-5 MG] 1 tab PO Q4H PRN 03/15/20 Breakfast Regular Diet [DIET] 03/16/20 05:11 CBC WITH AUTO DIFF [HEME] AM CMP [COMPREHENSIVE METABOLIC PN,CMP] [CHEM] AM MAGNESIUM [CHEM] AM PHOSPHORUS [CHEM] AM 03/17/20 05:11 CBC WITH AUTO DIFF [HEME] AM CMP [COMPREHENSIVE METABOLIC PN,CMP] [CHEM] AM MAGNESIUM [CHEM] AM PHOSPHORUS [CHEM] AM 03/17/20 18:30 VANCOMYCIN TROUGH [CHEM] Routine 03/18/20 05:11 CBC WITH AUTO DIFF [HEME] AM CMP [COMPREHENSIVE METABOLIC PN,CMP] [CHEM] AM MAGNESIUM [CHEM] AM PHOSPHORUS [CHEM] AM - Plan Plan:: Failure to thrive * Patient clearly cannot take care of herself. * She was admitted in June of last year 2 times with similar concerns and recommendations at that time were for her to go to [facility]. Patient refused both times. * Patient has signs of malnutrition with low albumin 2.8. * Troponin I less than 0.017 Plan * Admit to floor for wound care * PT/OT/social work, case management consults * Dietary consult * Unfortunately some of these will not be able to be done because of the weekend. Bilateral lower extremity cellulitis Chronic lower extremity edema Stasis dermatitis * Reportedly fever of 101 at home per housecleaning provider * Unknown if she is taking her medications appropriately * In the emergency department she was started on Rocephin and vancomycin * Blood cultures and wound cultures obtained * Normal WBC of 7.23-->7.75 * C-reactive protein 12.0 * proBNP normal at 427 * Patient reportedly on Lasix in the morning PRN * Left leg culture gram-positive cocci and gram-negative rods Plan * Continue vancomycin and Rocephin * Await culture results * PT for wound care * Follow CBC, C-reactive protein, and sed rate Chronic renal insufficiency stage III Hypomagnesemia Hypokalemia * BUN 22, creatinine 1.1, estimated GFR 48 * Mild prerenal disease with BUN/creatinine ratio of 20 * Magnesium 1.2-->1.5 * Potassium 3.1 Plan * Cautious rehydration * Recheck CMP * Supplement magnesium and recheck Urinary tract infection Urinary and fecal incontinence Intertrigo * Patient was soiled when she had arrived to the emergency department * Diffuse intertrigo in the perineum, pannus, buttocks, inguinal folds * Urine culture gram-positive cocci, Plan * Tellez catheter placed in the emergency department. Continue with Tellez for a couple of days to treat the diffuse intertrigo. * Rocephin * Urine culture * Nystatin powder 3 times daily to area of concern Hypertension * Patient is reportedly on metoprolol Plan * Restart home meds VTE prophylaxis with Lovenox CODE STATUS: Full code Disposition: Admit to floor. Patient would benefit from [facility] care after treatment in the emergency room. There is a likelihood that she will need long-term care.
[2020-03-15] MEDS: Venlafaxine 75 MG Cap.ER PO SCH (17:27)
[2020-03-15] MEDS: Furosemide 40 MG Tab PO SCH (17:27)
[2020-03-15] MEDS: Metoprolol Succinate 50 MG Tab.ER PO SCH (17:27)
[2020-03-15] MEDS: Venlafaxine 37.5 MG Cap.ER PO SCH ×2 (17:27→17:34)
[2020-03-15] MEDS: cefTRIAXone 2 GM in Sodium Chloride 0.9% 100 ML IV SCH (17:45)
[2020-03-15] MEDS ORDERED: Vancomycin 1.75 GM in Sodium Chloride 0.9% 500 ML IV SCH (21:00)
[2020-03-16] MEDS: Vancomycin 1 GM, Vancomycin 250 MG in Sodium Chloride 0.9% 250 ML IV SCH (06:10)
[2020-03-16] MEDS: Acetaminophen/HYDROcodone 325-5 MG Tab PO PRN ×2 (06:57→17:31)
[2020-03-16] MEDS ORDERED: Sodium Chloride 0.9% 10 ML Syringe FLUSH PRN (08:05)
[2020-03-16] MEDS ORDERED: Magnesium Sulfate/Water 4 GM in Premix Bag 1 BAG IV ONE (08:15)
[2020-03-16] MEDS: Venlafaxine 75 MG Cap.ER PO SCH (08:26)
[2020-03-16] MEDS: Furosemide 40 MG Tab PO SCH (08:26)
[2020-03-16] MEDS: Metoprolol Succinate 50 MG Tab.ER PO SCH (08:26)
[2020-03-16] MEDS: Enoxaparin 40 MG/0.4 ML Syringe SUBCUT SCH (08:27)
[2020-03-16] MEDS: Nystatin Topical Powder 15 GM Bottle TOP SCH ×3 (08:28→21:54)
--- NOTE | 2020-03-16 09:35 | PCM.PN ---
- General Info Date of Service: 03/16/20 Admission Dx/Problem (Free Text): Admission Diagnosis/Problem Admission Diagnosis/Problem Urinary tract infection Subjective Update: Yana developed a erythematous, pruritic rash on her bilateral ventral forearms and upper arm. Right is worse than left. This occurred a few hours after vancomycin and shortly after IV magnesium. Patient had no shortness of breath, wheezing, or cough. Functional Status: Denies: Pain Controlled - Review of Systems General: Reports: No Symptoms HEENT: Reports: No Symptoms Pulmonary: Reports: No Symptoms Cardiovascular: Reports: No Symptoms Gastrointestinal: Reports: No Symptoms Musculoskeletal: Reports: No Symptoms - Patient Data Vitals - Most Recent: Last Vital Signs Temp 98.2 F 03/16/20 07:53 Pulse 87 03/16/20 08:26 Resp 20 03/16/20 07:53 BP 138/50 L 03/16/20 08:26 Pulse Ox 94 L 03/16/20 07:53 Weight - Most Recent: 246 lb I&O - Last 24 Hours: Intake & Output 03/15/20 03/16/20 03/16/20 22:59 06:59 14:59 Intake Total 2488 1700 Output Total 700 1950 Balance 1788 -250 Lab Results Last 24 Hours: Laboratory Results - last 24 hr 03/16/20 03/16/20 Range/Units 05:08 05:08 WBC 8.39 (3.98-10.04) K/mm3 RBC 3.65 L (3.98-5.22) M/mm3 Hgb 11.4 (11.2-15.7) gm/dl Hct 37.0 (34.1-44.9) % MCV 101.4 H (79.4-94.8) fl MCH 31.2 (25.6-32.2) pg MCHC 30.8 L (32.2-35.5) g/dl RDW Std Deviation 48.6 H (36.4-46.3) fL Plt Count 226 (182-369) K/mm3 MPV 10.2 (9.4-12.3) fl Neut % (Auto) 55.0 (34.0-71.1) % Lymph % (Auto) 29.3 (19.3-51.7) % [place] % (Auto) 13.1 H (4.7-12.5) % Eos % (Auto) 2.3 (0.7-5.8) Baso % (Auto) 0.2 (0.1-1.2) % Neut # (Auto) 4.61 (1.56-6.13) K/mm3 Lymph # (Auto) 2.46 (1.18-3.74) K/mm3 [place] # (Auto) 1.10 H (0.24-0.36) K/mm3 Eos # (Auto) 0.19 (0.04-0.36) K/mm3 Baso # (Auto) 0.02 (0.01-0.08) K/mm3 Sodium 140 (136-145) mEq/L Potassium 3.8 (3.5-5.1) mEq/L Chloride 101 (98-107) mEq/L Carbon Dioxide 36 H (21-32) mEq/L Anion Gap 6.8 (5-15) BUN 15 (7-18) mg/dL Creatinine 1.0 (0.55-1.02) mg/dL Est Cr Clr Drug Dosing 41.33 mL/min Estimated GFR (MDRD) 54 (>60) mL/min BUN/Creatinine Ratio 15.0 (14-18) Glucose 107 (83-115) mg/dL Calcium 8.9 (8.5-10.1) mg/dL Phosphorus 2.1 L (2.6-4.7) mg/dL Magnesium 1.5 L (1.8-2.4) mg/dl Total Bilirubin 0.5 (0.2-1.0) mg/dL AST 13 L (15-37) U/L ALT 12 L (14-59) U/L Alkaline Phosphatase 82 (46-116) U/L C-Reactive Protein 14.4 H* (<1.0) mg/dL Total Protein 5.7 L (6.4-8.2) g/dl Albumin 2.3 L (3.4-5.0) g/dl Globulin 3.4 gm/dL Albumin/Globulin Ratio 0.7 L (1-2) [place]oy Results Last 24 Hours: Microbiology 03/14/20 17:55 Aerobic Blood Culture - Preliminary Blood - Venous - Lab Draw NO GROWTH AFTER 1 DAY Anaerobic Blood Culture - Preliminary NO GROWTH AFTER 1 DAY 03/14/20 17:50 Aerobic Blood Culture - Preliminary Blood - Venous NO GROWTH AFTER 1 DAY Anaerobic Blood Culture - Preliminary NO GROWTH AFTER 1 DAY 03/14/20 17:20 Urine Culture - Preliminary Urine, Catheterized Gram Positive Cocci 03/14/20 18:45 Gram Stain - Final Leg, Left Anaerobic Culture - Preliminary Gram Positive Cocci Gram Negative Rods Med Orders - Current: Current Medications Acetaminophen (Tylenol) 650 mg PO Q4H PRN PRN Reason: Pain (Mild 1-3)/fever Last Admin: 03/15/20 03:46 Dose: 650 mg Hydrocodone Bitart/Acetaminophen ([place] 325-5 Mg) 1 tab PO Q4H PRN PRN Reason: Pain (moderate 4-6) Last Admin: 03/16/20 06:57 Dose: 1 tab Enoxaparin Sodium (Lovenox) 40 mg SUBCUT DAILY [facility] Last Admin: 03/16/20 08:27 Dose: 40 mg Furosemide (Lasix) 40 mg PO DAILY [facility] Last Admin: 03/16/20 08:26 Dose: 40 mg Ceftriaxone Sodium 2 gm/ (Sodium Chloride) 100 mls @ 200 mls/hr IV Q24H [facility] Last Admin: 03/15/20 17:45 Dose: 200 mls/hr Vancomycin HCl 1 gm/Vancomycin HCl 250 mg/ Sodium Chloride 250 mls @ 167 mls/ hr IV Q18H [facility] Last Admin: 03/16/20 06:10 Dose: 167 mls/hr Magnesium Sulfate 4 gm/ Premix 50 mls @ 12.5 mls/hr IV ONETIME ONE Stop: 03/16/20 12:14 Last Admin: 03/16/20 08:23 Dose: 12.5 mls/hr Metoprolol Succinate (Toprol Xl) 50 mg PO DAILY [facility] Last Admin: 03/16/20 08:26 Dose: 50 mg Nystatin (Nystop) 1 gm TOP TID [facility] Last Admin: 03/16/20 08:28 Dose: 1 applic Sodium Chloride (Saline Flush) 10 ml FLUSH ASDIRECTED PRN PRN Reason: Keep Vein Open Vancomycin HCl (Pharmacy To Dose - Vancomycin) 0 dose .XX ASDIRECTED PRN PRN Reason: RX TO DOSE VANCOMYCIN Venlafaxine HCl (Effexor Xr) 150 mg PO DAILY [facility] Last Admin: 03/16/20 08:26 Dose: 150 mg Discontinued Medications Acetaminophen (Tylenol) 650 mg PO NOW ONE Stop: 03/14/20 18:18 Last Admin: 03/14/20 18:42 Dose: 650 mg Furosemide (Lasix) 60 mg IVPUSH NOW ONE Stop: 03/14/20 18:36 Last Admin: 03/14/20 18:42 Dose: 60 mg Sodium Chloride (Normal Saline) 1,000 mls @ 50 mls/hr IV ASDIRECTED [facility] Last Admin: 03/15/20 14:05 Dose: 50 mls/hr Vancomycin HCl 2 gm/ Sodium (Chloride) 250 mls @ 250 mls/hr IV ONETIME ONE Stop: 03/14/20 19:40 Last Admin: 03/14/20 18:51 Dose: 250 mls/hr Magnesium Sulfate 2 gm/ Premix 50 mls @ 25 mls/hr IV ONETIME ONE Stop: 03/14/20 21:54 Last Admin: 03/14/20 20:10 Dose: 25 mls/hr Vancomycin HCl 1.75 gm/ Sodium (Chloride) 500 mls @ 250 mls/hr IV Q24H [facility] Magnesium Sulfate 4 gm/ Premix 50 mls @ 12.5 mls/hr IV ONETIME ONE Stop: 03/15/20 12:55 Last Admin: 03/15/20 09:18 Dose: 12.5 mls/hr Potassium Chloride (Klor-Con M20) 40 meq PO ONETIME ONE Stop: 03/15/20 08:57 Last Admin: 03/15/20 09:17 Dose: 40 meq Potassium Chloride (Klor-Con M20) 40 meq PO ONETIME ONE Stop: 03/15/20 18:01 Last Admin: 03/15/20 17:28 Dose: 40 meq Venlafaxine HCl (Effexor Xr) 37.5 mg PO DAILY [facility] Last Admin: 03/15/20 17:34 Dose: Not Given - Exam General: Alert, Oriented HEENT: Pupils Equal, Mucous Membr. Moist/[place] Neck: Supple Lungs: Clear to Auscultation, Normal Respiratory Effort Cardiovascular: Regular Rate, Regular Rhythm GI/Abdominal Exam: Normal Bowel Sounds, Soft, Non-Tender, No Distention Extremities: Pedal Edema (3-4+) Skin: Warm, Dry, Intact, Rash (Slightly raised, erythematous, blanching, warm area from distal forearm to mid upper arm bilaterally, right worse than left. Nontender.) Sepsis Event Note - Evaluation Sepsis Screening Result: No Definite Risk - Focused Exam Vital Signs: Vital Signs Temp Pulse Resp BP Pulse Ox 03/16/20 08:26 87 138/50 L 03/16/20 07:53 98.2 F 87 20 138/50 L 94 L 03/16/20 06:20 98.6 F 88 16 132/51 L 96 03/15/20 23:14 85 93 L 03/15/20 23:12 98.1 F 86 20 131/42 L 95 Date Exam was Performed: 03/16/20 Time Exam was Performed: 14:35 - Problem List Review Problem List Initiated/Reviewed/Updated: Yes - My Orders Last 24 Hours: My Active Orders 03/15/20 09:00 Enoxaparin [Lovenox] 40 mg SUBCUT DAILY Nystatin [Nystop] 1 gm TOP TID 03/15/20 13:00 Vancomycin 1 gm Vancomycin 250 mg Sodium Chloride 0.9% [Normal Saline] 250 ml IV Q18H 03/15/20 14:37 Acetaminophen/HYDROcodone [[place] 325-5 MG] 1 tab PO Q4H PRN 03/15/20 16:15 Furosemide [Lasix] 40 mg PO DAILY Metoprolol Succinate [Toprol XL] 50 mg PO DAILY Venlafaxine [Effexor XR] 150 mg PO DAILY 03/16/20 08:05 Sodium Chloride 0.9% [Saline Flush] 10 ml FLUSH ASDIRECTED PRN Convert IV to Saline Lock [OM.PC] Routine 03/16/20 08:15 Magnesium Sulfate/Water [Magnesium Sulfate in Water Premix] 4 gm Premix Bag 1 bag IV ONETIME 03/17/20 05:11 CBC WITH AUTO DIFF [HEME] AM CMP [COMPREHENSIVE METABOLIC PN,CMP] [CHEM] AM CRP [C-REACTIVE PROTEIN] [CHEM] AM MAGNESIUM [CHEM] AM PHOSPHORUS [CHEM] AM 03/17/20 18:30 VANCOMYCIN TROUGH [CHEM] Routine 03/18/20 05:11 CBC WITH AUTO DIFF [HEME] AM CMP [COMPREHENSIVE METABOLIC PN,CMP] [CHEM] AM CRP [C-REACTIVE PROTEIN] [CHEM] AM MAGNESIUM [CHEM] AM PHOSPHORUS [CHEM] AM - Plan Plan:: Failure to thrive * Patient clearly cannot take care of herself. * She was admitted in June of last year 2 times with similar concerns and recommendations at that time were for her to go to group home rehab. Patient refused both times. * Patient has signs of malnutrition with low albumin 2.8. * Troponin I less than 0.017 Plan * Admit to floor for wound care * PT/OT/social work, case management consults * Dietary consult * Unfortunately some of these will not be able to be done because of the weekend. Bilateral lower extremity cellulitis Chronic lower extremity edema Stasis dermatitis * Reportedly fever of 101 at home per housecleaning provider * Unknown if she is taking her medications appropriately * In the emergency department she was started on Rocephin and vancomycin * Blood cultures and wound cultures obtained * Normal WBC of 7.23-->7.75 --> 8.39 * C-reactive protein 12.0--> 14.0 * proBNP normal at 427 * Patient reportedly on Lasix in the morning PRN * Left leg culture MSSA and pseudomonas aeruginosa. * Sensitivities for Pseudomonas do not include Levaquin and will be added. 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 * Rocephin * Adjust antibiotics depending on culture results * Nystatin powder 3 times daily to area of concern Hypertension * Patient is on metoprolol Plan * Restart home meds Allergic reaction * Unknown cause of reaction. Could be vancomycin or magnesium. * No shortness of breath. Plan * Stop vancomycin * If we need to give magnesium will try to give it orally. * Benadryl 25 mg p.o. x 1. * Close observation. VTE prophylaxis with Lovenox CODE STATUS: Full code Disposition: Admit to floor. Patient would benefit from group home facility care after treatment in the emergency room. There is a likelihood that she will need long-term care.
[2020-03-16] MEDS ORDERED: diphenhydrAMINE 25 MG Cap PO ONE (10:45)
[2020-03-16] MEDS ORDERED: Levofloxacin 750 MG Tab PO SCH ×2 (16:00)
[2020-03-17] MEDS: Acetaminophen/HYDROcodone 325-5 MG Tab PO PRN ×2 (04:15→21:15)
[2020-03-17] MEDS: Aluminum Hydroxide/Magnesium Hydroxide/Simethicone Susp 30 ML Cup PO ONE ×2 (04:15→04:21)
[2020-03-17] MEDS ORDERED: Potassium Chloride 20 MEQ Tab.ER PO ONE (07:28)
[2020-03-17] MEDS ORDERED: Magnesium Sulfate/Water 4 GM in Premix Bag 1 BAG IV ONE (08:00)
[2020-03-17] MEDS: Nystatin Topical Powder 15 GM Bottle TOP SCH ×3 (09:13→22:35)
[2020-03-17] MEDS: Furosemide 40 MG Tab PO SCH (09:19)
[2020-03-17] MEDS: Metoprolol Succinate 50 MG Tab.ER PO SCH (09:19)
[2020-03-17] MEDS: Venlafaxine 75 MG Cap.ER PO SCH (09:20)
[2020-03-17] MEDS: Enoxaparin 40 MG/0.4 ML Syringe SUBCUT SCH (09:21)
--- NOTE | 2020-03-17 10:06 | PCM.PN ---
- General Info Date of Service: 03/17/20 Admission Dx/Problem (Free Text): Admission Diagnosis/Problem Admission Diagnosis/Problem Urinary tract infection Subjective Update: Patient continues to improve. She has low potassium and magnesium. She refuses assisted care and insists on going home although the hospital team has universal recommendation that she go to a assisted facility. Functional Status: Reports: Pain Controlled - Review of Systems General: Reports: No Symptoms HEENT: Reports: No Symptoms Pulmonary: Reports: No Symptoms Cardiovascular: Reports: No Symptoms Gastrointestinal: Reports: No Symptoms - Patient Data Vitals - Most Recent: Last Vital Signs Temp 97.5 F 03/17/20 08:13 Pulse 74 03/17/20 09:19 Resp 18 03/17/20 08:13 BP 129/64 03/17/20 09:19 Pulse Ox 94 L 03/17/20 08:33 Weight - Most Recent: 241 lb 6.4 oz I&O - Last 24 Hours: Intake & Output 03/16/20 03/17/20 03/17/20 22:59 06:59 14:59 Intake Total 1451 300 Output Total 1850 940 Balance -399 -640 Lab Results Last 24 Hours: Laboratory Results - last 24 hr 03/17/20 03/17/20 Range/Units 04:40 04:49 WBC 6.67 (3.98-10.04) K/mm3 RBC 3.64 L (3.98-5.22) M/mm3 Hgb 11.4 (11.2-15.7) gm/dl Hct 36.8 (34.1-44.9) % MCV 101.1 H (79.4-94.8) fl MCH 31.3 (25.6-32.2) pg MCHC 31.0 L (32.2-35.5) g/dl RDW Std Deviation 48.2 H (36.4-46.3) fL Plt Count 212 (182-369) K/mm3 MPV 9.9 (9.4-12.3) fl Neut % (Auto) 57.2 (34.0-71.1) % Lymph % (Auto) 24.6 (19.3-51.7) % [place] % (Auto) 14.8 H (4.7-12.5) % Eos % (Auto) 3.0 (0.7-5.8) Baso % (Auto) 0.1 (0.1-1.2) % Neut # (Auto) 3.81 (1.56-6.13) K/mm3 Lymph # (Auto) 1.64 (1.18-3.74) K/mm3 [place] # (Auto) 0.99 H (0.24-0.36) K/mm3 Eos # (Auto) 0.20 (0.04-0.36) K/mm3 Baso # (Auto) 0.01 (0.01-0.08) K/mm3 Sodium 139 (136-145) mEq/L Potassium 3.3 L (3.5-5.1) mEq/L Chloride 98 (98-107) mEq/L Carbon Dioxide 36 H (21-32) mEq/L Anion Gap 8.3 (5-15) BUN 12 (7-18) mg/dL Creatinine 1.1 H (0.55-1.02) mg/dL Est Cr Clr Drug Dosing 37.57 mL/min Estimated GFR (MDRD) 48 (>60) mL/min BUN/Creatinine Ratio 10.9 L (14-18) Glucose 108 (83-115) mg/dL Calcium 8.7 (8.5-10.1) mg/dL Phosphorus 2.8 (2.6-4.7) mg/dL Magnesium 1.4 L (1.8-2.4) mg/dl Total Bilirubin 0.6 (0.2-1.0) mg/dL AST 55 H (15-37) U/L ALT 19 (14-59) U/L Alkaline Phosphatase 156 H (46-116) U/L C-Reactive Protein 10.9 H* (<1.0) mg/dL Total Protein 5.6 L (6.4-8.2) g/dl Albumin 2.2 L (3.4-5.0) g/dl Globulin 3.4 gm/dL Albumin/Globulin Ratio 0.7 L (1-2) Leroy Results Last 24 Hours: Microbiology 03/14/20 17:20 Urine Culture - Final Urine, Catheterized Aerococcus Viridans 03/14/20 18:45 Gram Stain - Final Leg, Left Anaerobic Culture - Preliminary Staphylococcus Aureus Pseudomonas Aeruginosa 03/14/20 17:55 Aerobic Blood Culture - Preliminary Blood - Venous - Lab Draw NO GROWTH AFTER 2 DAYS Anaerobic Blood Culture - Preliminary NO GROWTH AFTER 2 DAYS 03/14/20 17:50 Aerobic Blood Culture - Preliminary Blood - Venous NO GROWTH AFTER 2 DAYS Anaerobic Blood Culture - Preliminary NO GROWTH AFTER 2 DAYS Med Orders - Current: Current Medications Acetaminophen (Tylenol) 650 mg PO Q4H PRN PRN Reason: Pain (Mild 1-3)/fever Last Admin: 03/15/20 03:46 Dose: 650 mg Hydrocodone Bitart/Acetaminophen ([place] 325-5 Mg) 1 tab PO Q4H PRN PRN Reason: Pain (moderate 4-6) Last Admin: 03/17/20 04:15 Dose: 1 tab Enoxaparin Sodium (Lovenox) 40 mg SUBCUT DAILY [facility] Last Admin: 03/17/20 09:21 Dose: 40 mg Furosemide (Lasix) 40 mg PO DAILY [facility] Last Admin: 03/17/20 09:19 Dose: 40 mg Magnesium Sulfate 4 gm/ Premix 50 mls @ 12.5 mls/hr IV ONETIME ONE Stop: 03/17/20 11:59 Last Admin: 03/17/20 09:15 Dose: 12.5 mls/hr Levofloxacin (Levaquin) 750 mg PO Q48H [facility] Last Admin: 03/16/20 16:48 Dose: 750 mg Magnesium Oxide (Magnesium Oxide) 400 mg PO BID [facility] Metoprolol Succinate (Toprol Xl) 50 mg PO DAILY [facility] Last Admin: 03/17/20 09:19 Dose: 50 mg Nystatin (Nystop) 1 gm TOP TID [facility] Last Admin: 03/17/20 09:13 Dose: 1 applic Sodium Chloride (Saline Flush) 10 ml FLUSH ASDIRECTED PRN PRN Reason: Keep Vein Open Venlafaxine HCl (Effexor Xr) 150 mg PO DAILY [facility] Last Admin: 03/17/20 09:20 Dose: 150 mg Discontinued Medications Acetaminophen (Tylenol) 650 mg PO NOW ONE Stop: 03/14/20 18:18 Last Admin: 03/14/20 18:42 Dose: 650 mg Al Hydroxide/Mg Hydroxide (Mag-Al Plus) 30 ml PO ONETIME ONE Stop: 03/17/20 04:03 Last Admin: 03/17/20 04:21 Dose: Not Given Diphenhydramine HCl (Benadryl) 25 mg PO ONETIME ONE Stop: 03/16/20 10:46 Last Admin: 03/16/20 11:04 Dose: 25 mg Furosemide (Lasix) 60 mg IVPUSH NOW ONE Stop: 03/14/20 18:36 Last Admin: 03/14/20 18:42 Dose: 60 mg Sodium Chloride (Normal Saline) 1,000 mls @ 50 mls/hr IV ASDIRECTED [facility] Last Admin: 03/15/20 14:05 Dose: 50 mls/hr Ceftriaxone Sodium 2 gm/ (Sodium Chloride) 100 mls @ 200 mls/hr IV Q24H [facility] Last Admin: 03/15/20 17:45 Dose: 200 mls/hr Vancomycin HCl 2 gm/ Sodium (Chloride) 250 mls @ 250 mls/hr IV ONETIME ONE Stop: 03/14/20 19:40 Last Admin: 03/14/20 18:51 Dose: 250 mls/hr Magnesium Sulfate 2 gm/ Premix 50 mls @ 25 mls/hr IV ONETIME ONE Stop: 03/14/20 21:54 Last Admin: 03/14/20 20:10 Dose: 25 mls/hr Vancomycin HCl 1.75 gm/ Sodium (Chloride) 500 mls @ 250 mls/hr IV Q24H [facility] Magnesium Sulfate 4 gm/ Premix 50 mls @ 12.5 mls/hr IV ONETIME ONE Stop: 03/15/20 12:55 Last Admin: 03/15/20 09:18 Dose: 12.5 mls/hr Vancomycin HCl 1 gm/Vancomycin HCl 250 mg/ Sodium Chloride 250 mls @ 167 mls/ hr IV Q18H [facility] Last Admin: 03/16/20 06:10 Dose: 167 mls/hr Magnesium Sulfate 4 gm/ Premix 50 mls @ 12.5 mls/hr IV ONETIME ONE Stop: 03/16/20 12:14 Last Admin: 03/16/20 08:23 Dose: 12.5 mls/hr Levofloxacin (Levaquin) 750 mg PO Q24H [facility] Potassium Chloride (Klor-Con M20) 40 meq PO ONETIME ONE Stop: 03/15/20 08:57 Last Admin: 03/15/20 09:17 Dose: 40 meq Potassium Chloride (Klor-Con M20) 40 meq PO ONETIME ONE Stop: 03/15/20 18:01 Last Admin: 03/15/20 17:28 Dose: 40 meq Potassium Chloride (Klor-Con M20) 40 meq PO ONETIME ONE Stop: 03/17/20 07:29 Last Admin: 03/17/20 09:18 Dose: 40 meq Vancomycin HCl (Pharmacy To Dose - Vancomycin) 0 dose .XX ASDIRECTED PRN PRN Reason: RX TO DOSE VANCOMYCIN Venlafaxine HCl (Effexor Xr) 37.5 mg PO DAILY [facility] Last Admin: 03/15/20 17:34 Dose: Not Given - Exam General: Alert, Oriented HEENT: Pupils Equal, Mucous Membr. Moist/[place] Neck: Supple Lungs: Clear to Auscultation, Normal Respiratory Effort Cardiovascular: Regular Rate, Regular Rhythm GI/Abdominal Exam: Normal Bowel Sounds, Soft, Non-Tender, No Organomegaly, No Distention, No Abnormal Bruit, No Mass Extremities: Normal Inspection, Pedal Edema (3+ pitting edema bilaterally. Lower extremities are wrapped.) Skin: Warm, Dry, Intact Neurological: No New Focal Deficit Psy/Mental Status: Alert, Normal Affect, Normal Mood Sepsis Event Note - Evaluation Sepsis Screening Result: No Definite Risk - Focused Exam Vital Signs: Vital Signs Temp Pulse Resp BP Pulse Ox Pulse Ox 03/17/20 09:19 74 129/64 03/17/20 08:33 94 L 03/17/20 08:13 97.5 F 72 18 122/53 L 95 03/17/20 03:53 98.1 F 64 18 114/75 92 L 03/16/20 23:42 97.9 F 69 16 114/58 L 90 L Date Exam was Performed: 03/17/20 Time Exam was Performed: 15:54 - Problem List Review Problem List Initiated/Reviewed/Updated: Yes - My Orders Last 24 Hours: My Active Orders 03/16/20 16:00 levoFLOXacin [Levaquin] 750 mg PO Q48H 03/17/20 08:00 Magnesium Sulfate/Water [Magnesium Sulfate in Water Premix] 4 gm Premix Bag 1 bag IV ONETIME 03/17/20 09:30 Magnesium Oxide 400 mg PO BID 03/18/20 05:11 CBC WITH AUTO DIFF [HEME] AM CMP [COMPREHENSIVE METABOLIC PN,CMP] [CHEM] AM CRP [C-REACTIVE PROTEIN] [CHEM] AM MAGNESIUM [CHEM] AM PHOSPHORUS [CHEM] AM - Plan Plan:: Failure to thrive * Patient clearly cannot take care of herself. * She was admitted in June of last year 2 times with similar concerns and recommendations at that time were for her to go to assisted rehab. Patient refused both times. * Patient has signs of malnutrition with low albumin 2.8. * Troponin I less than 0.017 Plan * Admit to floor for wound care * PT/OT/social work, case management consults -recommend SNF placement * Dietary consult Bilateral lower extremity cellulitis Chronic lower extremity edema Stasis dermatitis * Reportedly fever of 101 at home per housecleaning provider * Unknown if she is taking her medications appropriately * In the emergency department she was started on Rocephin and vancomycin * Blood cultures and wound cultures obtained * Normal WBC of 7.23-->7.75 --> 8.39--> 6.7 * C-reactive protein 12.0--> 14.0--> 10.9 * proBNP normal at 427 * Continue Lasix in the morning * Left leg culture MSSA and pseudomonas aeruginosa. * Sensitivities for Pseudomonas do not include Levaquin -awaiting results Plan * Start Levaquin * Await final results on sensitivity to Pseudomonas * Stop vancomycin * PT for wound care * Follow CBC, C-reactive protein Chronic renal insufficiency stage III Hypomagnesemia Hypokalemia * BUN 22--> 15--> 12, creatinine 1.1--> 1.0--> 1.1, estimated GFR 48--> 54--> 48 * Mild prerenal disease with BUN/creatinine ratio of 20 * Magnesium 1.2-->1.5--> 1.4 * Potassium 3.1--> 3.8--> 3.3 * Hypomagnesemia and hypokalemia are consistent with an adequate oral intake Plan * Recheck CMP * Supplement magnesium and potassium * Start p.o. magnesium Urinary tract infection Urinary and fecal incontinence Intertrigo * Patient was soiled when she had arrived to the emergency department * Diffuse intertrigo in the perineum, pannus, buttocks, inguinal folds * Urine culture Aerococcus viridans sensitive to Levaquin Plan * DC Tellez catheter * Continue Levaquin * Nystatin powder 3 times daily to area of concern Hypertension * Patient is on metoprolol Plan * Restart home meds Allergic reaction -on March 16 * No shortness of breath. * No reaction when given IV magnesium today Plan * Stop vancomycin * Benadryl 25 mg p.o. x 1 Was given * Close observation. VTE prophylaxis with Lovenox CODE STATUS: Full code Disposition: Admit to floor. Patient would benefit from assisted facility care after treatment in the emergency room. There is a likelihood that she will need long-term care. Length of stay greater than 96 hours secondary to slow resolution of cellulitis and waiting culture results.
[2020-03-17] MEDS: Magnesium Oxide 400 MG Tab PO SCH ×2 (10:51→21:15)
[2020-03-17] MEDS: Levofloxacin 750 MG Tab PO SCH (16:19)
[2020-03-18] MEDS: Acetaminophen/HYDROcodone 325-5 MG Tab PO PRN ×2 (04:36→11:18)
[2020-03-18] MEDS ORDERED: Furosemide 20 MG Tab PO SCH (09:00)
--- NOTE | 2020-03-18 09:41 | PCM.DCSUM1 ---
Discharge Summary - Hospital Course HPI Initial Comments: 74-year-old female was brought into the emergency department per her [facility] ambulance. I was unable to get a history from her because she was obtunded, therefore history is based on emergency department's notes. Apparently the patient has a lady that comes and cleans her house who has been recommending that she seek medical attention for the last several days. Reportedly she had a fever 101 degrees, lost her appetite, experiencing chills and hot spells but the patient had not taken her temperature. The house cleaning lady apparently took her temperature and called EMS. She has chronic venous stasis and now has open wounds along both lower extremities that are seeping. Legs become more swollen and she is having difficulty walking. She was incontinent of urine and stool when she arrived at the emergency department. Patient is on Lasix for chronic dependent edema. She has extensive candidiasis/intertrigo along both inguinal regions and pannus folds of her abdomen. Redness and erythema consistent with a true high of the perineum and vulva. Unknown if she has gained any weight or lost any weight recently. In the emergency department she was afebrile with blood pressure 129/54, respiratory rate of 16, heart rate 98, pulse ox 98%. Labs show white count 7.23 with 67% neutrophils and 1% bands, hemoglobin 11.7, platelets 224, normal sodium and potassium, no anion gap, magnesium 1.2, BUN 22, creatinine 1.1, estimated GFR 48, lactic acid 1.2. proBNP 427, albumin 2.8. UA showed WBC too numerous to count with many bacteria. 1+ ketones 2+ occult blood. Patient usually can get around with a walker but recently she has been unable to get to the bathroom and she has had just stool and urine run out. She has not been able to get some of her medications and she is not sure which medication she has been taking. Tellez catheter was placed in the emergency department. She was started on vancomycin and Rocephin in the emergency department. Diagnosis: Stroke: No - Discharge Data Discharge Date: 03/18/20 Discharge Disposition: Home, Self-Care 01 Condition: Good - Referral to Home Health Primary Care Physician: Marilyn Bai NP Skilled Need: Face to Face meeting with pt. Pt has UTI, cellulitis and venous stasis dermatitis. Pt is in need Home Health Care services for; low activity tolerance, functional mobility, standing balance, strength, transfers. Nursing for vitals, skilled assessment, medication education, disease management. Physical therapy for pt for wound care, balance training, gait training, neuromuscular reduction, therapeutic exercises, and transfer training. Occupational therapy for balance training, safety education, caregiver training , functional mobility training, activity tolerance, self-care training, ADL�s. Pt is currently homebound related to being walker dependent, decreased activity tolerance, and a decreased level of endurance. Pt will be followed by his primary provider. - Discharge Diagnosis/Problem(s) (1) Cellulitis of both lower extremities SNOMED Code(s): 379056169 ICD Code: L03.115 - CELLULITIS OF RIGHT LOWER LIMB; L03.116 - CELLULITIS OF LEFT LOWER LIMB Status: Acute Current Visit: Yes (2) Dependent edema SNOMED Code(s): 377248009 ICD Code: R60.9 - EDEMA, UNSPECIFIED Status: Acute Current Visit: Yes (3) UTI (urinary tract infection) SNOMED Code(s): 39639745 ICD Code: N39.0 - URINARY TRACT INFECTION, SITE NOT SPECIFIED Status: Acute Current Visit: Yes Qualifiers: Urinary tract infection type: site unspecified Hematuria presence: with hematuria Qualified Code(s): N39.0 - Urinary tract infection, site not specified; R31.9 - Hematuria, unspecified (4) Urinary incontinence SNOMED Code(s): 752690060 ICD Code: R32 - UNSPECIFIED URINARY INCONTINENCE Status: Acute Current Visit: Yes Qualifiers: Urinary Incontinence type: urinary incontinence without sensory awareness Qualified Code(s): N39.42 - Incontinence without sensory awareness - Patient Summary/Data Consults: Consultations 03/14/20 20:58 PT Evaluation and Treatment [CONS] Routine 03/14/20 21:57 Consult to Case Management/Frame Nailer [CONS] Routine Consult to Dietary [Consult to Executive Pastry Chef] [CONS] Routine OT Evaluation and Treatment [CONS] Routine PT Evaluation and Treatment [CONS] Routine Hospital Course: Patient was admitted with failure to thrive, bilateral lower extremity cellulitis, chronic lower extremity edema, stasis dermatitis, renal insufficiency, hypomagnesemia, hypokalemia, UTI with urinary and fecal incontinence, intertrigo, and hypertension. It was felt that patient needed at minimum prison facility and likely long-term placement at a skilled nursing because of her inability to care for herself. This occurred also last June. Patient is adamant about not going to skilled care or nursing facility. Patient was started on vancomycin and Rocephin for her UTI and lower extremity cellulitis. She had compression wraps of the lower extremities and physical therapy did wound care. Wound cultures grew out MSSA, pseudomonas aeruginosa, and Peptostreptococcus species. MSSA and Pseudomonas were sensitive to Levaquin. Peptostreptococcus is generally sensitive to Levaquin. Urine culture grew out Aerococcus viridans also sensitive to Levaquin. Was felt to keep her on a total of 7 days of antibiotics. She will be sent home on home health and physical therapy. She does already get a automotive glazier 3 times a week. - Patient Instructions Diet: Heart Healthy Diet Activity: As Tolerated Driving: Do Not Drive Showering/Bathing: May Shower Wound/Incision Care: Change Dressing Daily Notify Provider of: Fever, Increased Pain, Swelling and Redness, Drainage Other/Special Instructions: Follow-up with primary care provider this week. - Discharge Plan *PRESCRIPTION DRUG MONITORING PROGRAM REVIEWED*: No *COPY OF PRESCRIPTION DRUG MONITORING REPORT IN PATIENT KENROY: No Prescriptions/Med Rec: Acetaminophen/HYDROcodone [[place] 325-5 MG] 1 tab PO Q4H PRN #5 tablet PRN Reason: Pain (Moderate 4-6) Furosemide [Lasix] 20 mg PO DAILY PRN #30 tablet PRN Reason: Edema levoFLOXacin [Levaquin] 750 mg PO 1600 #5 tablet Magnesium Oxide 400 mg PO BID #60 tablet Nystatin [Nystop] 1 gm TOP TID #2 bottle Home Medications: Home Meds Furosemide [Lasix] 20 mg PO DAILY PRN 12/07/17 [History] Metoprolol Succinate [Toprol XL 100mg] 50 mg PO DAILY 12/07/17 [History] Venlafaxine HCl [Venlafaxine ER] 150 mg PO DAILY 12/07/17 [History] Magnesium Oxide 400 mg PO BID #10 tablet 06/28/19 [Rx] Fesoterodine Fumarate [Toviaz] 8 mg PO DAILY 07/01/19 [History] Levalbuterol Tartrate [Xopenex Hfa] 2 puff INH Q4HR PRN 07/01/19 [History] Methyl B12 Plus 1 tab PO DAILY 03/14/20 [History] Acetaminophen/HYDROcodone [[place] 325-5 MG] 1 tab PO Q4H PRN #5 tablet 03/18/20 [ Rx] Furosemide [Lasix] 20 mg PO DAILY PRN #30 tablet 03/18/20 [Rx] Magnesium Oxide 400 mg PO BID #60 tablet 03/18/20 [Rx] Nystatin [Nystop] 1 gm TOP TID #2 bottle 03/18/20 [Rx] levoFLOXacin [Levaquin] 750 mg PO 1600 #5 tablet 03/18/20 [Rx] Oxygen Therapy Mode: Room Air Patient Handouts: Cellulitis, Adult, Urinary Tract Infection, Adult, Sepsis, Self Care, Adult Forms: ED Department Discharge Referrals: Marilyn Bai REVENUE CYCLE MANAGER [Primary Care Provider] - - Discharge Summary/Plan Comment DC Time >30 min.: Yes Discharge Summary/Plan Comment: Discharged home in stable condition. Recommended prison facility or long-term care, but patient declined. Follow-up with primary care provider in a week and recheck lower extremity edema. Continue following with home health and physical therapy. - General Info Date of Service: 03/18/20 Admission Dx/Problem (Free Text: Admission Diagnosis/Problem Admission Diagnosis/Problem Urinary tract infection Subjective Update: Patient denies any pain. She states that she is feeling much better and is ready to go home. Appetite is improved. Functional Status: Reports: Pain Controlled - Review of Systems General: Reports: No Symptoms HEENT: Reports: No Symptoms Pulmonary: Reports: No Symptoms Cardiovascular: Reports: No Symptoms Gastrointestinal: Reports: No Symptoms Musculoskeletal: Reports: No Symptoms - Patient Data Vitals - Most Recent: Last Vital Signs Temp 97.5 F 03/18/20 03:51 Pulse 69 03/18/20 03:51 Resp 18 03/18/20 03:51 BP 124/94 H 03/18/20 03:51 Pulse Ox 93 L 03/18/20 03:51 Weight - Most Recent: 234 lb 12.8 oz I&O - Last 24 hours: Intake & Output 03/17/20 03/18/20 03/18/20 22:59 06:59 14:59 Intake Total 650 300 Output Total 800 Balance 650 -500 Lab Results - Last 24 hrs: Laboratory Results - last 24 hr 03/18/20 03/18/20 Range/Units 04:53 04:53 WBC 7.50 (3.98-10.04) K/mm3 RBC 4.13 (3.98-5.22) M/mm3 Hgb 12.9 D (11.2-15.7) gm/dl Hct 41.5 (34.1-44.9) % MCV 100.5 H (79.4-94.8) fl MCH 31.2 (25.6-32.2) pg MCHC 31.1 L (32.2-35.5) g/dl RDW Std Deviation 48.3 H (36.4-46.3) fL Plt Count 279 (182-369) K/mm3 MPV 9.8 (9.4-12.3) fl Neut % (Auto) 44.1 (34.0-71.1) % Lymph % (Auto) 38.9 (19.3-51.7) % Haakon % (Auto) 13.2 H (4.7-12.5) % Eos % (Auto) 3.1 (0.7-5.8) Baso % (Auto) 0.4 (0.1-1.2) % Neut # (Auto) 3.31 (1.56-6.13) K/mm3 Lymph # (Auto) 2.92 (1.18-3.74) K/mm3 Haakon # (Auto) 0.99 H (0.24-0.36) K/mm3 Eos # (Auto) 0.23 (0.04-0.36) K/mm3 Baso # (Auto) 0.03 (0.01-0.08) K/mm3 Manual Slide Review Not Reportable Sodium 138 (136-145) mEq/L Potassium 3.6 (3.5-5.1) mEq/L Chloride 97 L (98-107) mEq/L Carbon Dioxide 38 H (21-32) mEq/L Anion Gap 6.6 (5-15) BUN 14 (7-18) mg/dL Creatinine 1.1 H (0.55-1.02) mg/dL Est Cr Clr Drug Dosing 37.57 mL/min Estimated GFR (MDRD) 48 (>60) mL/min BUN/Creatinine Ratio 12.7 L (14-18) Glucose 105 (83-115) mg/dL Calcium 9.2 (8.5-10.1) mg/dL Phosphorus 3.0 (2.6-4.7) mg/dL Magnesium 1.9 (1.8-2.4) mg/dl Total Bilirubin 0.5 (0.2-1.0) mg/dL AST 37 (15-37) U/L ALT 24 (14-59) U/L Alkaline Phosphatase 162 H (46-116) U/L C-Reactive Protein 8.6 H* (<1.0) mg/dL Total Protein 6.8 (6.4-8.2) g/dl Albumin 2.6 L (3.4-5.0) g/dl Globulin 4.2 gm/dL Albumin/Globulin Ratio 0.6 L (1-2) [facility]IVAN Results - Last 24 hrs: Microbiology 03/14/20 18:45 Gram Stain - Final Leg, Left Anaerobic Culture - Preliminary Staphylococcus Aureus Pseudomonas Aeruginosa Peptostreptococcus Species 03/14/20 17:55 Aerobic Blood Culture - Preliminary Blood - Venous - Lab Draw NO GROWTH AFTER 3 DAYS Anaerobic Blood Culture - Preliminary NO GROWTH AFTER 3 DAYS 03/14/20 17:50 Aerobic Blood Culture - Preliminary Blood - Venous NO GROWTH AFTER 3 DAYS Anaerobic Blood Culture - Preliminary NO GROWTH AFTER 3 DAYS 03/14/20 17:20 Urine Culture - Final Urine, Catheterized Aerococcus Viridans Med Orders - Current: Current Medications Acetaminophen (Tylenol) 650 mg PO Q4H PRN PRN Reason: Pain (Mild 1-3)/fever Last Admin: 03/15/20 03:46 Dose: 650 mg Hydrocodone Bitart/Acetaminophen ([place] 325-5 Mg) 1 tab PO Q4H PRN PRN Reason: Pain (moderate 4-6) Last Admin: 03/18/20 04:36 Dose: 1 tab Enoxaparin Sodium (Lovenox) 40 mg SUBCUT DAILY [facility] Last Admin: 03/17/20 09:21 Dose: 40 mg Furosemide (Lasix) 20 mg PO DAILY [facility] Levofloxacin (Levaquin) 750 mg PO 1600 [facility] Last Admin: 03/17/20 16:19 Dose: 750 mg Magnesium Oxide (Magnesium Oxide) 400 mg PO BID [facility] Last Admin: 03/17/20 21:15 Dose: 400 mg Metoprolol Succinate (Toprol Xl) 50 mg PO DAILY [facility] Last Admin: 03/17/20 09:19 Dose: 50 mg Nystatin (Nystop) 1 gm TOP TID [facility] Last Admin: 03/17/20 22:35 Dose: 1 applic Sodium Chloride (Saline Flush) 10 ml FLUSH ASDIRECTED PRN PRN Reason: Keep Vein Open Venlafaxine HCl (Effexor Xr) 150 mg PO DAILY [facility] Last Admin: 03/17/20 09:20 Dose: 150 mg Discontinued Medications Acetaminophen (Tylenol) 650 mg PO NOW ONE Stop: 03/14/20 18:18 Last Admin: 03/14/20 18:42 Dose: 650 mg Al Hydroxide/Mg Hydroxide (Mag-Al Plus) 30 ml PO ONETIME ONE Stop: 03/17/20 04:03 Last Admin: 03/17/20 04:21 Dose: Not Given Diphenhydramine HCl (Benadryl) 25 mg PO ONETIME ONE Stop: 03/16/20 10:46 Last Admin: 03/16/20 11:04 Dose: 25 mg Furosemide (Lasix) 60 mg IVPUSH NOW ONE Stop: 03/14/20 18:36 Last Admin: 03/14/20 18:42 Dose: 60 mg Furosemide (Lasix) 40 mg PO DAILY [facility] Last Admin: 03/17/20 09:19 Dose: 40 mg Sodium Chloride (Normal Saline) 1,000 mls @ 50 mls/hr IV ASDIRECTED [facility] Last Admin: 03/15/20 14:05 Dose: 50 mls/hr Ceftriaxone Sodium 2 gm/ (Sodium Chloride) 100 mls @ 200 mls/hr IV Q24H [facility] Last Admin: 03/15/20 17:45 Dose: 200 mls/hr Vancomycin HCl 2 gm/ Sodium (Chloride) 250 mls @ 250 mls/hr IV ONETIME ONE Stop: 03/14/20 19:40 Last Admin: 03/14/20 18:51 Dose: 250 mls/hr Magnesium Sulfate 2 gm/ Premix 50 mls @ 25 mls/hr IV ONETIME ONE Stop: 03/14/20 21:54 Last Admin: 03/14/20 20:10 Dose: 25 mls/hr Vancomycin HCl 1.75 gm/ Sodium (Chloride) 500 mls @ 250 mls/hr IV Q24H [facility] Magnesium Sulfate 4 gm/ Premix 50 mls @ 12.5 mls/hr IV ONETIME ONE Stop: 03/15/20 12:55 Last Admin: 03/15/20 09:18 Dose: 12.5 mls/hr Vancomycin HCl 1 gm/Vancomycin HCl 250 mg/ Sodium Chloride 250 mls @ 167 mls/ hr IV Q18H [facility] Last Admin: 03/16/20 06:10 Dose: 167 mls/hr Magnesium Sulfate 4 gm/ Premix 50 mls @ 12.5 mls/hr IV ONETIME ONE Stop: 03/16/20 12:14 Last Admin: 03/16/20 08:23 Dose: 12.5 mls/hr Magnesium Sulfate 4 gm/ Premix 50 mls @ 12.5 mls/hr IV ONETIME ONE Stop: 03/17/20 11:59 Last Admin: 03/17/20 09:15 Dose: 12.5 mls/hr Levofloxacin (Levaquin) 750 mg PO Q24H [facility] Levofloxacin (Levaquin) 750 mg PO Q48H [facility] Last Admin: 03/16/20 16:48 Dose: 750 mg Potassium Chloride (Klor-Con M20) 40 meq PO ONETIME ONE Stop: 03/15/20 08:57 Last Admin: 03/15/20 09:17 Dose: 40 meq Potassium Chloride (Klor-Con M20) 40 meq PO ONETIME ONE Stop: 03/15/20 18:01 Last Admin: 03/15/20 17:28 Dose: 40 meq Potassium Chloride (Klor-Con M20) 40 meq PO ONETIME ONE Stop: 03/17/20 07:29 Last Admin: 03/17/20 09:18 Dose: 40 meq Vancomycin HCl (Pharmacy To Dose - Vancomycin) 0 dose .XX ASDIRECTED PRN PRN Reason: RX TO DOSE VANCOMYCIN Venlafaxine HCl (Effexor Xr) 37.5 mg PO DAILY [facility] Last Admin: 03/15/20 17:34 Dose: Not Given - Exam Quality Assessment: Denies: Supplemental Oxygen General: Reports: Alert, Oriented HEENT: Reports: Pupils Equal, Mucous Membr. Moist/[place]: Reports: Supple Lungs: Reports: Clear to Auscultation, Normal Respiratory Effort Cardiovascular: Reports: Regular Rate, Regular Rhythm GI/Abdominal Exam: Normal Bowel Sounds, Soft, Non-Tender, No Organomegaly, No Distention, No Abnormal Bruit, No Mass Back Exam: Reports: Normal Inspection, Full Range of Motion Extremities: Normal Capillary Refill, Redness (Decreased erythema and warmth.), Other (Compression wraps.) Psy/Mental Status: Reports: Alert, Normal Affect, Normal Mood
[2020-03-18] MEDS: Nystatin Topical Powder 15 GM Bottle TOP SCH ×2 (09:48→15:27)
[2020-03-18] MEDS: Venlafaxine 75 MG Cap.ER PO SCH (09:50)
[2020-03-18] MEDS: Magnesium Oxide 400 MG Tab PO SCH (09:50)
[2020-03-18] MEDS: Metoprolol Succinate 50 MG Tab.ER PO SCH (09:51)
[2020-03-18] MEDS: Enoxaparin 40 MG/0.4 ML Syringe SUBCUT SCH (09:53)
[2020-03-18] MEDS: Levofloxacin 750 MG Tab PO SCH (15:35)
== END 2020-03-18 16:12 | disposition home or self-care (01) | DRG 603 ==
LOC: SUPCPDRO 17:10 → JD.ED 17:10 → JD.MS 20:22
PROVIDERS: ADMIT Family Medicine; ATTEND Family Medicine
DX: L03.115 Cellulitis of right lower limb (principal); N39.0 Urinary tract infection, site not specified; Z68.41 Body mass index [BMI] 40.0-44.9, adult; E46 Unspecified protein-calorie malnutrition; L03.116 Cellulitis of left lower limb; N39.42 Incontinence without sensory awareness; I87.8 Other specified disorders of veins; I10 Essential (primary) hypertension; J45.909 Unspecified asthma, uncomplicated; R62.7 Adult failure to thrive; I87.2 Venous insufficiency (chronic) (peripheral); E83.42 Hypomagnesemia; E87.6 Hypokalemia; L30.4 Erythema intertrigo; B95.61 Methicillin susceptible Staphylococcus aureus infection as the cause of diseases classified elsewhere; B96.5 Pseudomonas (aeruginosa) (mallei) (pseudomallei) as the cause of diseases classified elsewhere; B95.4 Other streptococcus as the cause of diseases classified elsewhere; I12.9 Hypertensive chronic kidney disease with stage 1 through stage 4 chronic kidney disease, or unspecified chronic kidney disease; N18.3 Chronic kidney disease, stage 3 (moderate); H54.7 Unspecified visual loss; K59.09 Other constipation; M19.90 Unspecified osteoarthritis, unspecified site; F41.9 Anxiety disorder, unspecified; E66.9 Obesity, unspecified; Z90.89 Acquired absence of other organs; Z79.899 Other long term (current) drug therapy; Z90.710 Acquired absence of both cervix and uterus; Z87.891 Personal history of nicotine dependence
CPT/HCPCS: 36415; 51702; 71045; 80053; 81001; 83605; 83735; 83880; 84484; 85007; 85027; 85610; 85652; 85730; 86140; 87040 ×2; 87075; 87076; 87077 ×2; 87086; 87088; 87181; 87184; 87186 ×3; 87205; 93005; 96365; 96375; 99285; A9270; J0696; J1940; J3370; J3475; J7030; J7050 ×2; 84100; 85025; 93010; 94760; 97163-GP; 97165-GO; 97530-GO; 97530-GP; 97597-GP; 99223; 99232; 99239; J1650

== ENCOUNTER 2021-06-12 15:00 | Inpatient (IN) | payer MEDICARE, MEDICAID ==
[2021-06-12] MEDS ORDERED: Sodium Chloride 0.9% 1,000 ML IV ONE (15:28)
[2021-06-12] MEDS: Sodium Chloride 0.9% 10 ML Syringe FLUSH PRN (15:46)
--- NOTE | 2021-06-12 15:51 | EDM.PDOC ---
ED HPI GENERAL MEDICAL PROBLEM - General Chief Complaint: General Stated Complaint: [facility] Time Seen by Provider: 06/12/21 15:06 Source of Information: Reports: Patient, EMS Notes Reviewed, RN Notes Reviewed History Limitations: Reports: No Limitations - History of Present Illness INITIAL COMMENTS - FREE TEXT/NARRATIVE: Patient is a 75-year-old female brought to our ER for evaluation by [facility] for being found on her floor. As far as the ambulance was told, her friend checked on her, the patient was found to have been on the floor. They think it is likely she has been on the floor for more than 24 hours. The patient was covered in vomitus, and fecal matter, and has soiled herself multiple times. Patient does feel very warm to the touch, and is rigorous. Patient cannot tell me if she fell however she thinks she did but she is not certain. She has no cough, no visible shortness of breath, states that her legs hurt, but she does have some breakdown of her skin from about mid ahn down. She does seem quite edematous on her lower extremities. There is 1 ulceration, or area of skin breakdown on her right glute. Ambulance did state that they have found her in this state multiple times, and the patient is hesitant to come to the ER, as she does not want to be put in the hospital to have to go to the [facility]. bilateral legs Pain Score (Numeric/FACES): 4 - Related Data Allergies Allergy/AdvReac Type Severity Reaction Status Date / Time No Known Allergies Allergy Verified 07/01/19 03:56 Home Meds: Home Meds Furosemide [Lasix] 20 mg PO DAILY PRN 12/07/17 [History] Metoprolol Succinate [Toprol XL 100mg] 50 mg PO DAILY 12/07/17 [History] Venlafaxine HCl [Venlafaxine ER] 150 mg PO DAILY 12/07/17 [History] Magnesium Oxide 400 mg PO BID #10 tablet 06/28/19 [Rx] Fesoterodine Fumarate [Toviaz] 8 mg PO DAILY 07/01/19 [History] Levalbuterol Tartrate [Xopenex Hfa] 2 puff INH Q4HR PRN 07/01/19 [History] Methyl B12 Plus 1 tab PO DAILY 03/14/20 [History] Acetaminophen/HYDROcodone [[place] 325-5 MG] 1 tab PO Q4H PRN #5 tablet 03/18/20 [Rx] Furosemide [Lasix] 20 mg PO DAILY PRN #30 tablet 03/18/20 [Rx] Magnesium Oxide 400 mg PO BID #60 tablet 03/18/20 [Rx] Nystatin [Nystop] 1 gm TOP TID #2 bottle 03/18/20 [Rx] levoFLOXacin [Levaquin] 750 mg PO 1600 #5 tablet 03/18/20 [Rx] Past Medical History HEENT History: Reports: Impaired Vision Other HEENT History: Wears glasses Cardiovascular History: Reports: Hypertension Respiratory History: Reports: Asthma Gastrointestinal History: Reports: Chronic Constipation Genitourinary History: Reports: Urinary Incontinence [employer] History: Reports: Endometriosis Musculoskeletal History: Reports: Osteoarthritis Psychiatric History: Reports: Anxiety Endocrine/Metabolic History: Reports: Obesity/BMI 30+ Dermatologic History: Reports: Chronic Cellulitis, Decubitus Ulcer (R glute), Venous Stasis Dermatitis (on bilateral lower extremities), Other (See Below) Other Dermatologic History: sensitive skin, "breaks out easy" - Past Surgical History HEENT Surgical History: Reports: Tonsillectomy GI Surgical History: Reports: Colonoscopy, EGD Female Surgical History: Reports: Hysterectomy Social & Family History - Family History Family Medical History: No Pertinent Family History - Caffeine Use Caffeine Use: Reports: Coffee, Soda Other Caffeine Use: some days 1-2 cups of coffee other days 3-4. - Living Situation & Occupation Living situation: Reports: , Alone (in an apartment) Occupation: Retired ED ROS GENERAL - Review of Systems Review Of Systems: Comprehensive ROS is negative, except as noted in HPI. ED EXAM, GENERAL - Physical Exam Exam: See Below Exam Limited By: No Limitations General Appearance: Alert, WD/WN, No Apparent Distress (pt is very rigorous and warm to touch) Respiratory/Chest: No Respiratory Distress, Lungs Clear, Normal Breath Sounds, No Accessory Muscle Use, Chest Non-Tender Cardiovascular: Normal Peripheral Pulses, Regular Rate, Rhythm, No Edema GI/Abdominal: Normal Bowel Sounds, Soft, Non-Tender, No Distention, No Mass Extremities: Normal Inspection, Normal Capillary Refill Neurological: Alert, Oriented, Normal Cognition, No Motor/Sensory Deficits Psychiatric: Normal Affect, Normal Mood Skin Exam: Dry, No Rash, Increased Warmth (generalized), Wound/Incision (there is an area of skin break down on R glute; pt has breakdown of skin of bilateral lower extremities.) #1 Interpretation EKG Date: 06/12/21 Time: 17:08 Rhythm: NSR (sinus tach) Rate (Beats/Min): 105 [place]: Normal P-Wave: Present QRS: Normal ST-T: Normal QT: Normal Comparison: NA - No Prior EKG EKG Interpretation Comments: No obvious ischemia or acute ST changes noted, reviewed by myself and Dr. Smith. Course - Vital Signs Last Recorded V/S: Last Vital Signs Temp 97.7 F 06/12/21 15:46 Pulse 100 06/12/21 15:46 Resp 18 06/12/21 15:46 BP 149/83 H 06/12/21 15:46 Pulse Ox 97 06/12/21 15:51 - Orders/Labs/Meds Orders: Active Orders 24 hr Category Date Time Status Blood Pressure Mgt: Sepsis [RC] Q15MX2 Care 06/12/21 15:30 Active Oxygen Therapy, ED [RC] STAT Care 06/12/21 15:31 Active Peripheral IV Care [RC] . DIRECTED Care 06/12/21 15:33 Active Chest 2V [CR] Stat Exams 06/12/21 15:28 Taken BLOOD CULTURE [MREF] Stat Lab 06/12/21 15:50 Received BLOOD CULTURE [MREF] Stat Lab 06/12/21 16:00 Received CULTURE URINE [MREF] Urgent Lab 06/12/21 15:33 Received REFLEX LACTIC ACID YES OR NO [CHEM] Routine Lab 06/12/21 16:15 Received Sodium Chloride 0.9% [Saline Flush] Med 06/12/21 15:28 Active 10 ml FLUSH ASDIRECTED PRN Blood Culture x2 Reflex Set [OM.PC] Stat Oth 06/12/21 15:28 Ordered Peripheral IV Insertion Adult [OM.PC] Routine Oth 06/12/21 15:32 Ordered Saline Lock Insert [OM.PC] Stat Oth 06/12/21 15:28 Ordered Medication Orders Acetaminophen (Acetaminophen 325 Mg Tab) 650 mg PO Q4H PRN PRN Reason: Pain (Mild 1-3)/fever Docusate Sodium (Docusate Sodium 100 Mg Cap) 100 mg PO Q12H PRN PRN Reason: Constipation Famotidine (Famotidine 20 Mg/2 Ml Sdv) 20 mg IVPUSH BID MERCEDES Furosemide (Furosemide 20 Mg Tab) 20 mg PO DAILY PRN PRN Reason: Edema Heparin Sodium (Porcine) (Heparin Sodium 5,000 Units/Ml Vial) 5,000 units SUBCUT Q8H MERCEDES Ceftriaxone Sodium 2 gm/ (Sodium Chloride) 100 mls @ 200 mls/hr IV Q24H MERCEDES Magnesium Oxide (Magnesium Oxide 400 Mg Tab) 400 mg PO BID MERCEDES Non-Formulary Medication (Metoprolol Succinate) 50 mg PO DAILY MERCEDES Ondansetron HCl (Ondansetron 4 Mg Tab.Dis) 4 mg PO Q4H PRN PRN Reason: nausea, able to take PO Sodium Chloride (Sodium Chloride 0.9% 10 Ml Syringe) 10 ml FLUSH ASDIRECTED PRN PRN Reason: Keep Vein Open Last Admin: 06/12/21 15:46 Dose: 10 ml Documented by: JATIN Temazepam (Temazepam 7.5 Mg Cap) 7.5 mg PO BEDTIME PRN PRN Reason: Sleep Labs: Laboratory Tests 06/12/21 06/12/21 06/12/21 Range/Units 15:29 15:29 15:33 WBC (3.98-10.04) K/mm3 RBC (3.98-5.22) M/mm3 Hgb (11.2-15.7) gm/dl Hct (34.1-44.9) % MCV (79.4-94.8) fl MCH (25.6-32.2) pg MCHC (32.2-35.5) g/dl RDW Std Deviation (36.4-46.3) fL Plt Count (182-369) K/mm3 MPV (9.4-12.3) fl Neutrophils % (Manual) (40-60) % Band Neutrophils % (0-10) % Lymphocytes % (Manual) (20-40) % Atypical Lymphs % % Monocytes % (Manual) (2-10) % Eosinophils % (Manual) (0.7-5.8) % Basophils % (Manual) (0.1-1.2) Platelet Estimate RBC Morph Comment PT (9.7-12.0) SECONDS INR Sodium (136-145) mEq/L Potassium (3.5-5.1) mEq/L Chloride (98-107) mEq/L Carbon Dioxide (21-32) mEq/L Anion Gap (5-15) BUN (7-18) mg/dL Creatinine (0.55-1.02) mg/dL Est Cr Clr Drug Dosing mL/min Estimated GFR (MDRD) (>60) mL/min BUN/Creatinine Ratio (14-18) Glucose (70-99) mg/dL Lactic Acid (0.4-2.0) mmol/L Calcium (8.5-10.1) mg/dL Total Bilirubin (0.2-1.0) mg/dL AST (15-37) U/L ALT (14-59) U/L Alkaline Phosphatase (46-116) U/L Creatine Kinase 1176 H (26-192) U/L Troponin I (0.00-0.056) ng/mL C-Reactive Protein (<1.0) mg/dL NT-Pro-B Natriuret Pep 7365 H (0-450) pg/mL Total Protein (6.4-8.2) g/dl Albumin (3.4-5.0) g/dl Globulin gm/dL Albumin/Globulin Ratio (1-2) Urine Color Yellow (Yellow) Urine Appearance Cloudy H (Clear) Urine pH 6.0 (5.0-8.0) Ur Specific [place] 1.020 (1.005-1.030) Urine Protein 1+ H (Negative) Urine Glucose (UA) Negative (Negative) Urine Ketones Negative (Negative) Urine Occult Blood 2+ H (Negative) Urine Nitrite Positive H (Negative) Urine Bilirubin Negative (Negative) Urine Urobilinogen 0.2 (0.2-1.0) Ur Leukocyte Esterase 3+ H (Negative) Urine RBC 10-20 H (0-5) /hpf Urine WBC >100 H (0-5) /hpf Ur Squamous Epith Cells 0-5 (0-5) /hpf Urine Bacteria Many H (FEW) /hpf Urine Mucus Not seen (FEW) /hpf SARS-CoV-2 RNA (CALEB) (NEGATIVE) 06/12/21 06/12/21 06/12/21 Range/Units 15:33 15:39 15:39 WBC 15.65 H (3.98-10.04) K/mm3 RBC 4.09 (3.98-5.22) M/mm3 Hgb 12.6 (11.2-15.7) gm/dl Hct 39.0 (34.1-44.9) % MCV 95.4 H (79.4-94.8) fl MCH 30.8 (25.6-32.2) pg MCHC 32.3 (32.2-35.5) g/dl RDW Std Deviation 47.1 H (36.4-46.3) fL Plt Count 195 (182-369) K/mm3 MPV 9.8 (9.4-12.3) fl Neutrophils % (Manual) 80 H (40-60) % Band Neutrophils % 11 H (0-10) % Lymphocytes % (Manual) 1 L (20-40) % Atypical Lymphs % 3 % Monocytes % (Manual) 5 (2-10) % Eosinophils % (Manual) 0 L (0.7-5.8) % Basophils % (Manual) 0 L (0.1-1.2) Platelet Estimate Adequate RBC Morph Comment Normal PT 11.9 (9.7-12.0) SECONDS INR 1.11 Sodium (136-145) mEq/L Potassium (3.5-5.1) mEq/L Chloride (98-107) mEq/L Carbon Dioxide (21-32) mEq/L Anion Gap (5-15) BUN (7-18) mg/dL Creatinine (0.55-1.02) mg/dL Est Cr Clr Drug Dosing mL/min Estimated GFR (MDRD) (>60) mL/min BUN/Creatinine Ratio (14-18) Glucose (70-99) mg/dL Lactic Acid (0.4-2.0) mmol/L Calcium (8.5-10.1) mg/dL Total Bilirubin (0.2-1.0) mg/dL AST (15-37) U/L ALT (14-59) U/L Alkaline Phosphatase (46-116) U/L Creatine Kinase (26-192) U/L Troponin I (0.00-0.056) ng/mL C-Reactive Protein (<1.0) mg/dL NT-Pro-B Natriuret Pep (0-450) pg/mL Total Protein (6.4-8.2) g/dl Albumin (3.4-5.0) g/dl Globulin gm/dL Albumin/Globulin Ratio (1-2) Urine Color (Yellow) Urine Appearance (Clear) Urine pH (5.0-8.0) Ur Specific [place] (1.005-1.030) Urine Protein (Negative) Urine Glucose (UA) (Negative) Urine Ketones (Negative) Urine Occult Blood (Negative) Urine Nitrite (Negative) Urine Bilirubin (Negative) Urine Urobilinogen (0.2-1.0) Ur Leukocyte Esterase (Negative) Urine RBC (0-5) /hpf Urine WBC (0-5) /hpf Ur Squamous Epith Cells (0-5) /hpf Urine Bacteria (FEW) /hpf Urine Mucus (FEW) /hpf SARS-CoV-2 RNA (CALEB) Negative (NEGATIVE) 06/12/21 06/12/21 Range/Units 15:39 15:39 WBC (3.98-10.04) K/mm3 RBC (3.98-5.22) M/mm3 Hgb (11.2-15.7) gm/dl Hct (34.1-44.9) % MCV (79.4-94.8) fl MCH (25.6-32.2) pg MCHC (32.2-35.5) g/dl RDW Std Deviation (36.4-46.3) fL Plt Count (182-369) K/mm3 MPV (9.4-12.3) fl Neutrophils % (Manual) (40-60) % Band Neutrophils % (0-10) % Lymphocytes % (Manual) (20-40) % Atypical Lymphs % % Monocytes % (Manual) (2-10) % Eosinophils % (Manual) (0.7-5.8) % Basophils % (Manual) (0.1-1.2) Platelet Estimate RBC Morph Comment PT (9.7-12.0) SECONDS INR Sodium 144 (136-145) mEq/L Potassium 3.9 (3.5-5.1) mEq/L Chloride 108 H (98-107) mEq/L Carbon Dioxide 26 (21-32) mEq/L Anion Gap 13.9 (5-15) BUN 27 H (7-18) mg/dL Creatinine 1.2 H (0.55-1.02) mg/dL Est Cr Clr Drug Dosing 38.18 mL/min Estimated GFR (MDRD) 44 (>60) mL/min BUN/Creatinine Ratio 22.5 H (14-18) Glucose 123 H (70-99) mg/dL Lactic Acid 2.5 H* (0.4-2.0) mmol/L Calcium 9.3 (8.5-10.1) mg/dL Total Bilirubin 1.5 H (0.2-1.0) mg/dL AST 216 H (15-37) U/L ALT 101 H (14-59) U/L Alkaline Phosphatase 232 H (46-116) U/L Creatine Kinase (26-192) U/L Troponin I 0.319 H* (0.00-0.056) ng/mL C-Reactive Protein 7.2 H* (<1.0) mg/dL NT-Pro-B Natriuret Pep (0-450) pg/mL Total Protein 6.6 (6.4-8.2) g/dl Albumin 2.8 L (3.4-5.0) g/dl Globulin 3.8 gm/dL Albumin/Globulin Ratio 0.7 L (1-2) Urine Color (Yellow) Urine Appearance (Clear) Urine pH (5.0-8.0) Ur Specific [place] (1.005-1.030) Urine Protein (Negative) Urine Glucose (UA) (Negative) Urine Ketones (Negative) Urine Occult Blood (Negative) Urine Nitrite (Negative) Urine Bilirubin (Negative) Urine Urobilinogen (0.2-1.0) Ur Leukocyte Esterase (Negative) Urine RBC (0-5) /hpf Urine WBC (0-5) /hpf Ur Squamous Epith Cells (0-5) /hpf Urine Bacteria (FEW) /hpf Urine Mucus (FEW) /hpf SARS-CoV-2 RNA (CALEB) (NEGATIVE) Meds: Medications Generic Name Dose Route Start Last Admin Trade Name Freq PRN Reason Stop Dose Admin Acetaminophen 650 mg 06/12/21 16:33 Acetaminophen 325 Mg Tab PO Q4H PRN Pain (Mild 1-3)/fever Docusate Sodium 100 mg 06/12/21 16:33 Docusate Sodium 100 Mg Cap PO Q12H PRN Constipation Famotidine 20 mg 06/12/21 21:00 Famotidine 20 Mg/2 Ml Sdv IVPUSH BID MERCEDES Furosemide 20 mg 06/12/21 16:39 Furosemide 20 Mg Tab PO DAILY PRN Edema Heparin Sodium (Porcine) 5,000 units 06/12/21 16:45 Heparin Sodium 5,000 Units/Ml Vial SUBCUT Q8H MERCEDES Ceftriaxone Sodium 2 gm/ 100 mls @ 200 mls/hr 06/13/21 14:00 Sodium Chloride IV Q24H MERCEDES Magnesium Oxide 400 mg 06/12/21 21:00 Magnesium Oxide 400 Mg Tab PO BID MERCEDES Non-Formulary Medication 50 mg 06/13/21 09:00 Metoprolol Succinate PO DAILY MERCEDES Ondansetron HCl 4 mg 06/12/21 16:33 Ondansetron 4 Mg Tab.Dis PO Q4H PRN nausea, able to take PO Sodium Chloride 10 ml 06/12/21 15:28 06/12/21 15:46 Sodium Chloride 0.9% 10 Ml Syringe FLUSH 10 ml ASDIRECTED PRN Administration Keep Vein Open Temazepam 7.5 mg 06/12/21 16:33 Temazepam 7.5 Mg Cap PO BEDTIME PRN Sleep Discontinued Medications Generic Name Dose Route Start Last Admin Trade Name Freq PRN Reason Stop Dose Admin Sodium Chloride 1,000 mls @ 999 mls/hr 06/12/21 15:28 06/12/21 15:46 Normal Saline IV 06/12/21 16:28 999 mls/hr ONETIME ONE Administration Protocol Ceftriaxone Sodium 2 gm/ 100 mls @ 200 mls/hr 06/12/21 16:23 06/12/21 16:28 Sodium Chloride IV 06/12/21 16:52 200 mls/hr ONETIME ONE Administration - Re-Assessments/Exams Free Text/Narrative Re-Assessment/Exam: 06/12/21 15:54 Patient presents to the ER after being found down in her apartment, we will go ahead and get a multitude of labs, EKG, chest x-ray, will place a [facility], and get a urinary sample for management. Patient is rigorous, and is likely septic, will try to figure out the source. 06/12/21 16:26 The patient's laboratory evaluation has started to result, her white count is elevated at 15.65, with the auto differential still pending at this time. Metabolic panel impressive for creatinine mildly elevated at 1.2, GFR decreased at 44, this is a slight difference from last evaluation where her creatinine was 0.9 and GFR was over 60. The patient CRP is elevated at 7.2, lactic acid is elevated at 2.5, troponin also elevated at 0.319. Urinalysis is grossly positive for UTI and 2 g Rocephin has been ordered for ongoing management. I did talk with Dr. Smith about the elevated troponin, he does believe that it is because the patient was found down, for unknown amount of time. We have arsen emanuel been giving her fluids, initially, but we will address this for second day, as the patient does have history of heart failure, and we do not want to fluid overload her. Patient will necessitate hospitalization at this time. 06/12/21 16:[address] Conner and she does accept the patient for admission at this time, she did request a CPK to be done as well due to the patient's elevated tr oponin, and history of being found down. Chest x-ray did not show any sign of acute aspiration, reviewed by myself or Dr. Smith. Patient will be admitted for urosepsis at this time. Departure - Departure Time of Disposition: 16:35 Disposition: Admitted As Inpatient 64 Condition: Fair Clinical Impression: Pyelonephritis Sepsis Qualifiers: Sepsis type: sepsis due to unspecified organism Sepsis acute organ dysfunction status: unspecified Qualified Code(s): A41.9 - Sepsis, unspecified organism - Discharge Information Sepsis Event Note (ED) - Focused Exam Vital Signs: Vital Signs Temp Pulse Resp BP Pulse Ox Pulse Ox 06/12/21 15:51 97 06/12/21 15:46 97.7 F 100 18 149/83 H 95 06/12/21 15:45 159/39 H - My Orders Last 24 Hours: My Active Orders 06/12/21 15:28 Chest 2V [CR] Stat Sodium Chloride 0.9% [Saline Flush] 10 ml FLUSH ASDIRECTED PRN Blood Culture x2 Reflex Set [OM.PC] Stat Saline Lock Insert [OM.PC] Stat 06/12/21 15:30 Blood Pressure Mgt: Sepsis [RC] Q15MX2 06/12/21 15:31 Oxygen Therapy, ED [RC] STAT 06/12/21 15:32 Peripheral IV Insertion Adult [OM.PC] Routine 06/12/21 15:33 Peripheral IV Care [RC] . DIRECTED CULTURE URINE [MREF] Urgent 06/12/21 15:50 BLOOD CULTURE [MREF] Stat 06/12/21 16:00 BLOOD CULTURE [MREF] Stat 06/12/21 16:15 REFLEX LACTIC ACID YES OR NO [CHEM] Routine - Assessment/Plan Last 24 Hours: My Active Orders 06/12/21 15:28 Chest 2V [CR] Stat Sodium Chloride 0.9% [Saline Flush] 10 ml FLUSH ASDIRECTED PRN Blood Culture x2 Reflex Set [OM.PC] Stat Saline Lock Insert [OM.PC] Stat 06/12/21 15:30 Blood Pressure Mgt: Sepsis [RC] Q15MX2 06/12/21 15:31 Oxygen Therapy, ED [RC] STAT 06/12/21 15:32 Peripheral IV Insertion Adult [OM.PC] Routine 06/12/21 15:33 Peripheral IV Care [RC] . DIRECTED CULTURE URINE [MREF] Urgent 06/12/21 15:50 BLOOD CULTURE [MREF] Stat 06/12/21 16:00 BLOOD CULTURE [MREF] Stat 06/12/21 16:15 REFLEX LACTIC ACID YES OR NO [CHEM] Routine
[2021-06-12] MEDS ORDERED: cefTRIAXone 2 GM in Sodium Chloride 0.9% 100 ML IV ONE (16:23)
[2021-06-12] MEDS ORDERED: Ondansetron 4 MG Tab.DIS PO PRN (16:33)
[2021-06-12] MEDS ORDERED: Docusate Sodium 100 MG Cap PO PRN (16:33)
[2021-06-12] MEDS ORDERED: Temazepam 7.5 MG Cap PO PRN (16:33)
[2021-06-12] MEDS ORDERED: Furosemide 20 MG Tab PO PRN (16:39)
[2021-06-12] MEDS ORDERED: Heparin Sodium 5,000 Units/ML Vial SUBCUT SCH (16:45)
--- NOTE | 2021-06-12 17:32 | PCM.HP.2 ---
H&P History of Present Illness - General Date of Service: 06/12/21 Admit Problem/Dx: Admission Diagnosis/Problem Admission Diagnosis/Problem Sepsis Source of Information: Other (staff and neighbors) History Limitations: Reports: Altered Mental Status - History of Present Illness Onset of Symptoms: Reports: Unknown/Unsure (found down by neighbors) Severity: Severe Improves with: Reports: None Worsens with: Reports: None Associated Symptoms: Reports: Confusion, Fever/Chills, Nausea/Vomiting, Weakness bilateral legs Pain Score (Numeric/FACES): 4 - Related Data Allergies/Adverse Reactions: Allergies Allergy/AdvReac Type Severity Reaction Status Date / Time No Known Allergies Allergy Verified 07/01/19 03:56 Home Medications: Home Meds Furosemide [Lasix] 20 mg PO DAILY PRN 12/07/17 [History] Metoprolol Succinate [Toprol XL 100mg] 50 mg PO DAILY 12/07/17 [History] Venlafaxine HCl [Venlafaxine ER] 150 mg PO DAILY 12/07/17 [History] Magnesium Oxide 400 mg PO BID #10 tablet 06/28/19 [Rx] Fesoterodine Fumarate [Toviaz] 8 mg PO DAILY 07/01/19 [History] Levalbuterol Tartrate [Xopenex Hfa] 2 puff INH Q4HR PRN 07/01/19 [History] Methyl B12 Plus 1 tab PO DAILY 03/14/20 [History] Acetaminophen/HYDROcodone [[place] 325-5 MG] 1 tab PO Q4H PRN #5 tablet 03/18/20 [Rx] Furosemide [Lasix] 20 mg PO DAILY PRN #30 tablet 03/18/20 [Rx] Magnesium Oxide 400 mg PO BID #60 tablet 03/18/20 [Rx] Nystatin [Nystop] 1 gm TOP TID #2 bottle 03/18/20 [Rx] levoFLOXacin [Levaquin] 750 mg PO 1600 #5 tablet 03/18/20 [Rx] Past Medical History HEENT History: Reports: Impaired Vision Other HEENT History: Wears glasses Cardiovascular History: Reports: Hypertension Respiratory History: Reports: Asthma Gastrointestinal History: Reports: Chronic Constipation Genitourinary History: Reports: Urinary Incontinence 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: Endometriosis Musculoskeletal History: Reports: Osteoarthritis Psychiatric History: Reports: Anxiety Endocrine/Metabolic History: Reports: Obesity/BMI 30+ Dermatologic History: Reports: Chronic Cellulitis, Decubitus Ulcer (R glute), Venous Stasis Dermatitis (on bilateral lower extremities), Other (See Below) Other Dermatologic History: sensitive skin, "breaks out easy" - Past Surgical History HEENT Surgical History: Reports: Tonsillectomy GI Surgical History: Reports: Colonoscopy, EGD Female Surgical History: Reports: Hysterectomy Social & Family History - Family History Family Medical History: No Pertinent Family History - Tobacco Use Tobacco Use Status *Q: Never Tobacco User - Caffeine Use Caffeine Use: Reports: Coffee, Soda Other Caffeine Use: some days 1-2 cups of coffee other days 3-4. - Recreational Drug Use Recreational Drug Use: No - Living Situation & Occupation Living situation: Reports: , Alone (in an apartment) Occupation: Retired H&P Review of Systems - Review of Systems: Review Of Systems: See Below General: Reports: Fever, Chills, Malaise, Weakness, Fatigue HEENT: Reports: No Symptoms Pulmonary: Reports: No Symptoms, Shortness of Breath Cardiovascular: Reports: No Symptoms, Dyspnea on Exertion Gastrointestinal: Reports: No Symptoms, Diarrhea, Nausea, Vomiting Genitourinary: Reports: No Symptoms Musculoskeletal: Reports: Muscle Pain Skin: Reports: No Symptoms Psychiatric: Reports: Confusion, Depression, Anxiety Neurological: Reports: Confusion, Weakness Exam - Exam Exam: See Below - Vital Signs Vital Signs: Last Vital Signs Temp 97.7 F 06/12/21 15:46 Pulse 100 06/12/21 15:46 Resp 18 06/12/21 15:46 BP 149/83 H 06/12/21 15:46 Pulse Ox 97 06/12/21 15:51 Weight: 320 lb - Patient Data Lab Results Last 24 hrs: Laboratory Results - last 24 hr 06/12/21 06/12/21 06/12/21 Range/Units 15:29 15:29 15:33 WBC (3.98-10.04) K/mm3 RBC (3.98-5.22) M/mm3 Hgb (11.2-15.7) gm/dl Hct (34.1-44.9) % MCV (79.4-94.8) fl MCH (25.6-32.2) pg MCHC (32.2-35.5) g/dl RDW Std Deviation (36.4-46.3) fL Plt Count (182-369) K/mm3 MPV (9.4-12.3) fl Neutrophils % (Manual) (40-60) % Band Neutrophils % (0-10) % Lymphocytes % (Manual) (20-40) % Atypical Lymphs % % Monocytes % (Manual) (2-10) % Eosinophils % (Manual) (0.7-5.8) % Basophils % (Manual) (0.1-1.2) Platelet Estimate RBC Morph Comment PT (9.7-12.0) SECONDS INR Sodium (136-145) mEq/L Potassium (3.5-5.1) mEq/L Chloride (98-107) mEq/L Carbon Dioxide (21-32) mEq/L Anion Gap (5-15) BUN (7-18) mg/dL Creatinine (0.55-1.02) mg/dL Est Cr Clr Drug Dosing mL/min Estimated GFR (MDRD) (>60) mL/min BUN/Creatinine Ratio (14-18) Glucose (70-99) mg/dL Lactic Acid (0.4-2.0) mmol/L Calcium (8.5-10.1) mg/dL Total Bilirubin (0.2-1.0) mg/dL AST (15-37) U/L ALT (14-59) U/L Alkaline Phosphatase (46-116) U/L Creatine Kinase 1176 H (26-192) U/L Troponin I (0.00-0.056) ng/mL C-Reactive Protein (<1.0) mg/dL NT-Pro-B Natriuret Pep 7365 H (0-450) pg/mL Total Protein (6.4-8.2) g/dl Albumin (3.4-5.0) g/dl Globulin gm/dL Albumin/Globulin Ratio (1-2) Urine Color Yellow (Yellow) Urine Appearance Cloudy H (Clear) Urine pH 6.0 (5.0-8.0) Ur Specific [place] 1.020 (1.005-1.030) Urine Protein 1+ H (Negative) Urine Glucose (UA) Negative (Negative) Urine Ketones Negative (Negative) Urine Occult Blood 2+ H (Negative) Urine Nitrite Positive H (Negative) Urine Bilirubin Negative (Negative) Urine Urobilinogen 0.2 (0.2-1.0) Ur Leukocyte Esterase 3+ H (Negative) Urine RBC 10-20 H (0-5) /hpf Urine WBC >100 H (0-5) /hpf Ur Squamous Epith Cells 0-5 (0-5) /hpf Urine Bacteria Many H (FEW) /hpf Urine Mucus Not seen (FEW) /hpf SARS-CoV-2 RNA (CALEB) (NEGATIVE) 06/12/21 06/12/21 06/12/21 Range/Units 15:33 15:39 15:39 WBC 15.65 H (3.98-10.04) K/mm3 RBC 4.09 (3.98-5.22) M/mm3 Hgb 12.6 (11.2-15.7) gm/dl Hct 39.0 (34.1-44.9) % MCV 95.4 H (79.4-94.8) fl MCH 30.8 (25.6-32.2) pg MCHC 32.3 (32.2-35.5) g/dl RDW Std Deviation 47.1 H (36.4-46.3) fL Plt Count 195 (182-369) K/mm3 MPV 9.8 (9.4-12.3) fl Neutrophils % (Manual) 80 H (40-60) % Band Neutrophils % 11 H (0-10) % Lymphocytes % (Manual) 1 L (20-40) % Atypical Lymphs % 3 % Monocytes % (Manual) 5 (2-10) % Eosinophils % (Manual) 0 L (0.7-5.8) % Basophils % (Manual) 0 L (0.1-1.2) Platelet Estimate Adequate RBC Morph Comment Normal PT 11.9 (9.7-12.0) SECONDS INR 1.11 Sodium (136-145) mEq/L Potassium (3.5-5.1) mEq/L Chloride (98-107) mEq/L Carbon Dioxide (21-32) mEq/L Anion Gap (5-15) BUN (7-18) mg/dL Creatinine (0.55-1.02) mg/dL Est Cr Clr Drug Dosing mL/min Estimated GFR (MDRD) (>60) mL/min BUN/Creatinine Ratio (14-18) Glucose (70-99) mg/dL Lactic Acid (0.4-2.0) mmol/L Calcium (8.5-10.1) mg/dL Total Bilirubin (0.2-1.0) mg/dL AST (15-37) U/L ALT (14-59) U/L Alkaline Phosphatase (46-116) U/L Creatine Kinase (26-192) U/L Troponin I (0.00-0.056) ng/mL C-Reactive Protein (<1.0) mg/dL NT-Pro-B Natriuret Pep (0-450) pg/mL Total Protein (6.4-8.2) g/dl Albumin (3.4-5.0) g/dl Globulin gm/dL Albumin/Globulin Ratio (1-2) Urine Color (Yellow) Urine Appearance (Clear) Urine pH (5.0-8.0) Ur Specific [place] (1.005-1.030) Urine Protein (Negative) Urine Glucose (UA) (Negative) Urine Ketones (Negative) Urine Occult Blood (Negative) Urine Nitrite (Negative) Urine Bilirubin (Negative) Urine Urobilinogen (0.2-1.0) Ur Leukocyte Esterase (Negative) Urine RBC (0-5) /hpf Urine WBC (0-5) /hpf Ur Squamous Epith Cells (0-5) /hpf Urine Bacteria (FEW) /hpf Urine Mucus (FEW) /hpf SARS-CoV-2 RNA (CALEB) Negative (NEGATIVE) 06/12/21 06/12/21 Range/Units 15:39 15:39 WBC (3.98-10.04) K/mm3 RBC (3.98-5.22) M/mm3 Hgb (11.2-15.7) gm/dl Hct (34.1-44.9) % MCV (79.4-94.8) fl MCH (25.6-32.2) pg MCHC (32.2-35.5) g/dl RDW Std Deviation (36.4-46.3) fL Plt Count (182-369) K/mm3 MPV (9.4-12.3) fl Neutrophils % (Manual) (40-60) % Band Neutrophils % (0-10) % Lymphocytes % (Manual) (20-40) % Atypical Lymphs % % Monocytes % (Manual) (2-10) % Eosinophils % (Manual) (0.7-5.8) % Basophils % (Manual) (0.1-1.2) Platelet Estimate RBC Morph Comment PT (9.7-12.0) SECONDS INR Sodium 144 (136-145) mEq/L Potassium 3.9 (3.5-5.1) mEq/L Chloride 108 H (98-107) mEq/L Carbon Dioxide 26 (21-32) mEq/L Anion Gap 13.9 (5-15) BUN 27 H (7-18) mg/dL Creatinine 1.2 H (0.55-1.02) mg/dL Est Cr Clr Drug Dosing 38.18 mL/min Estimated GFR (MDRD) 44 (>60) mL/min BUN/Creatinine Ratio 22.5 H (14-18) Glucose 123 H (70-99) mg/dL Lactic Acid 2.5 H* (0.4-2.0) mmol/L Calcium 9.3 (8.5-10.1) mg/dL Total Bilirubin 1.5 H (0.2-1.0) mg/dL AST 216 H (15-37) U/L ALT 101 H (14-59) U/L Alkaline Phosphatase 232 H (46-116) U/L Creatine Kinase (26-192) U/L Troponin I 0.319 H* (0.00-0.056) ng/mL C-Reactive Protein 7.2 H* (<1.0) mg/dL NT-Pro-B Natriuret Pep (0-450) pg/mL Total Protein 6.6 (6.4-8.2) g/dl Albumin 2.8 L (3.4-5.0) g/dl Globulin 3.8 gm/dL Albumin/Globulin Ratio 0.7 L (1-2) Urine Color (Yellow) Urine Appearance (Clear) Urine pH (5.0-8.0) Ur Specific [place] (1.005-1.030) Urine Protein (Negative) Urine Glucose (UA) (Negative) Urine Ketones (Negative) Urine Occult Blood (Negative) Urine Nitrite (Negative) Urine Bilirubin (Negative) Urine Urobilinogen (0.2-1.0) Ur Leukocyte Esterase (Negative) Urine RBC (0-5) /hpf Urine WBC (0-5) /hpf Ur Squamous Epith Cells (0-5) /hpf Urine Bacteria (FEW) /hpf Urine Mucus (FEW) /hpf SARS-CoV-2 RNA (CALEB) (NEGATIVE) Result Diagrams: 06/12/21 15:39 06/12/21 15:39 Sepsis Event Note - Evaluation Sepsis Screening Result: Possible Sepsis Risk - Focused Exam Vital Signs: Vital Signs Temp Pulse Resp BP Pulse Ox Pulse Ox 06/12/21 15:51 97 06/12/21 15:46 97.7 F 100 18 149/83 H 95 06/12/21 15:45 159/39 H Problem List Initiated/Reviewed/Updated: Yes Orders Last 24hrs: Active Orders 24 hr Category Date Time Status Patient Status [ADT] Routine ADT 06/12/21 17:14 Active Bedrest Bedside Commode [RC] ASDIRECTED Care 06/12/21 16:33 Active Blood Pressure Mgt: Sepsis [RC] [id number] Care 06/12/21 15:30 Active EKG Documentation Completion [RC] ASDIRECTED Care 06/12/21 17:00 Active Insert Urinary Catheter [OM.PC] Q24H Care 06/12/21 16:45 Ordered Oxygen Therapy [RC] ASDIRECTED Care 06/12/21 16:33 Active Oxygen Therapy, ED [RC] STAT Care 06/12/21 15:31 Active Peripheral IV Care [RC] . DIRECTED Care 06/12/21 15:33 Active Telemetry Monitoring [Cardiac Monitoring] [RC] . Care 06/12/21 16:43 Active DIRECTED Urinary Catheter Assessment [RC] ASDIRECTED Care 06/12/21 16:45 Active Vital Signs [RC] Q6H Care 06/12/21 16:33 Active OT Evaluation and Treatment [CONS] Routine Cons 06/12/21 16:38 Active PT Evaluation and Treatment [CONS] Routine Cons 06/12/21 16:38 Active Regular Diet [DIET] Diet 06/12/21 Dinner Active Chest 2V [CR] Stat Exams 06/12/21 15:28 Taken Echo 2D wo Cont [US] Stat Exams 06/16/21 07:00 Ordered BASIC METABOLIC PANEL,BMP [CHEM] AM Lab 06/13/21 05:11 Ordered BASIC METABOLIC PANEL,BMP [CHEM] AM Lab 06/14/21 05:11 Ordered BASIC METABOLIC PANEL,BMP [CHEM] AM Lab 06/15/21 05:11 Ordered BASIC METABOLIC PANEL,BMP [CHEM] AM Lab 06/16/21 05:11 Ordered BLOOD CULTURE [MREF] Stat Lab 06/12/21 15:50 Received BLOOD CULTURE [MREF] Stat Lab 06/12/21 16:00 Received CBC WITH AUTO DIFF [HEME] AM Lab 06/13/21 05:11 Ordered CBC WITH AUTO DIFF [HEME] AM Lab 06/14/21 05:11 Ordered CBC WITH AUTO DIFF [HEME] AM Lab 06/15/21 05:11 Ordered CBC WITH AUTO DIFF [HEME] AM Lab 06/16/21 05:11 Ordered CULTURE URINE [MREF] Urgent Lab 06/12/21 15:33 Received LACTIC ACID [CHEM] Routine Lab 06/12/21 21:30 Ordered MAGNESIUM [CHEM] AM Lab 06/13/21 05:11 Ordered MAGNESIUM [CHEM] AM Lab 06/14/21 05:11 Ordered MAGNESIUM [CHEM] AM Lab 06/15/21 05:11 Ordered MAGNESIUM [CHEM] AM Lab 06/16/21 05:11 Ordered REFLEX LACTIC ACID YES OR NO [CHEM] Routine Lab 06/12/21 16:15 Received TROPONIN I [CHEM] Stat Lab 06/12/21 21:30 Ordered Acetaminophen [TylenoL] Med 06/12/21 16:33 Active 650 mg PO Q4H PRN Docusate Sodium [Colace] Med 06/12/21 16:33 Active 100 mg PO Q12H PRN Famotidine [Pepcid] Med 06/12/21 21:00 Active 20 mg IVPUSH BID Furosemide [Lasix] Med 06/12/21 16:39 Active 20 mg PO DAILY PRN Heparin Sodium Med 06/12/21 16:45 Active 5,000 units SUBCUT Q8H Magnesium Oxide Med 06/12/21 21:00 Active 400 mg PO BID Metoprolol Succinate Med 06/13/21 09:00 Active 50 mg PO DAILY Ondansetron [Zofran ODT] Med 06/12/21 16:33 Active 4 mg PO Q4H PRN Sodium Chloride 0.9% [Saline Flush] Med 06/12/21 15:28 Active 10 ml FLUSH ASDIRECTED PRN Temazepam [Restoril] Med 06/12/21 16:33 Active 7.5 mg PO BEDTIME PRN cefTRIAXone [Rocephin] 2 gm Med 06/13/21 14:00 Active Sodium Chloride 0.9% [Normal Saline] 100 ml IV Q24H Blood Culture x2 Reflex Set [OM.PC] Stat Oth 06/12/21 15:28 Ordered Peripheral IV Insertion Adult [OM.PC] Routine Oth 06/12/21 15:32 Ordered Precautions [COMM] Routine Oth 06/12/21 16:38 Ordered Saline Lock Insert [OM.PC] Stat Oth 06/12/21 15:28 Ordered Resuscitation Status Routine Resus Stat 06/12/21 16:33 Ordered EKG 12 Lead [EK] Stat Ther 06/12/21 17:00 Ordered Medication Orders Acetaminophen (Acetaminophen 325 Mg Tab) 650 mg PO Q4H PRN PRN Reason: Pain (Mild 1-3)/fever Docusate Sodium (Docusate Sodium 100 Mg Cap) 100 mg PO Q12H PRN PRN Reason: Constipation Famotidine (Famotidine 20 Mg/2 Ml Sdv) 20 mg IVPUSH BID MER[facility] Furosemide (Furosemide 20 Mg Tab) 20 mg PO DAILY PRN PRN Reason: Edema Heparin Sodium (Porcine) (Heparin Sodium 5,000 Units/Ml Vial) 5,000 units SUBCUT Q8H [facility] Ceftriaxone Sodium 2 gm/ (Sodium Chloride) 100 mls @ 200 mls/hr IV Q24H [facility] Magnesium Oxide (Magnesium Oxide 400 Mg Tab) 400 mg PO BID [facility] Non-Formulary Medication (Metoprolol Succinate) 50 mg PO DAILY [facility] Ondansetron HCl (Ondansetron 4 Mg Tab.Dis) 4 mg PO Q4H PRN PRN Reason: nausea, able to take PO Sodium Chloride (Sodium Chloride 0.9% 10 Ml Syringe) 10 ml FLUSH ASDIRECTED PRN PRN Reason: Keep Vein Open Last Admin: 06/12/21 15:46 Dose: 10 ml Documented by: JATIN Temazepam (Temazepam 7.5 Mg Cap) 7.5 mg PO BEDTIME PRN PRN Reason: Sleep Assessment/Plan Comment:: 1. sepsis without shock-elevated white count, fever, chills, positive UTI, notable aspiration, nausea, vomiting, Rocephin started in the ER, left shift, if nitrate, pending CT PK. #2. UTI acute-history of incontinence, takes fesoterodine which is now held 3. acute CHF exacerbation -Pulmonary congestion on bilateral cxr -pending BNP, bilateral noted on chest x-ray, 1 L of fluids was given in the ER, continue home Lasix. History of questionable CHF, when CPK returns may need to alter fluids and diuresis. -bnp returns near 8000, lasix tid iv has been started with strict I and O 4. Elevated troponin-likely secondary to troponin leak, pending echo which will be able to be done till Tuesday, telemetry will continue, EKG which was not done in the ER will be ordered now, and repeat troponin in 6 hours. 5. Nausea and vomiting-will cover with Zofran 6. Elevated LFT-concern that it may be associated with rhabdomyolysis with pending CPK, or secondary to CHF exacerbation with BNP pending, pending overall work-up. 7. Questionable history of CHF-takes Lasix daily at home. Echocardiogram cannot be done until Tuesday, will continue metoprolol, Lasix, and patient is not on any aspirin. #8. Hypertension-continue metoprolol. 9. Asthma-asymptomatic, will add as needed albuterol if necessary 10. Chronic constipation-add Colace and MiraLAX. 1. possible rhabdo, asked for cpk but wrong lab ordered and repeat has been ordered now, appearing it will be elevated. Due to the severity of the chf, we iwll frances and repeat labs in al and no fluids at this time, She received 1 liter in er. Geoff in place ppx heparin full code time 80 min
[2021-06-12] MEDS ORDERED: Acetaminophen 650 MG Supp RECTAL PRN (18:21)
[2021-06-12] MEDS ORDERED: Vancomycin 2 GM in Sodium Chloride 0.9% 500 ML IV ONE (21:00)
[2021-06-12] MEDS ORDERED: Vancomycin 1 GM SDV ONE (21:42)
[2021-06-12] MEDS: Famotidine 20 MG/2 ML SDV IVPUSH SCH (21:54)
[2021-06-12] MEDS: Magnesium Oxide 400 MG Tab PO SCH (21:54)
[2021-06-12] MEDS: Furosemide 40 MG/4 ML VIAL IVPUSH SCH (21:54)
[2021-06-12] MEDS: Docusate Sodium 100 MG Cap PO SCH (21:55)
[2021-06-12] MEDS ORDERED: Clopidogrel 75 MG Tab PO ONE (22:45)
[2021-06-12] MEDS ORDERED: Aspirin 325 MG Tab.EC PO ONE (22:45)
[2021-06-12] MEDS ORDERED: Heparin Sodium 5,000 Units/ML Vial IVPUSH ONE (23:20)
[2021-06-12] MEDS ORDERED: Heparin Sodium/D5W 25,000 UNITS/500 ML BAG IV SCH (23:30)
[2021-06-13] MEDS: Acetaminophen 325 MG Tab PO PRN ×2 (06:27→17:14)
--- NOTE | 2021-06-13 06:46 | PCM.PN ---
- General Info Date of Service: 06/13/21 Admission Dx/Problem (Free Text): Admission Diagnosis/Problem Admission Diagnosis/Problem Sepsis Subjective Update: confusion, unable to answer further questions Functional Status: Reports: Pain Controlled - Review of Systems General: Reports: Fever, Weakness, Fatigue, Malaise, Chills, Night Sweats HEENT: Reports: Rhinitis - Patient Data Vitals - Most Recent: Last Vital Signs Temp 101.3 F H 06/13/21 06:27 Pulse 97 06/13/21 03:12 Resp 22 H 06/13/21 03:12 BP 118/52 L 06/13/21 03:45 Pulse Ox 94 L 06/13/21 03:12 Weight - Most Recent: 233 lb I&O - Last 24 Hours: Intake & Output 06/12/21 06/12/21 06/13/21 14:59 22:59 06:59 Intake Total 838 Output Total 550 4800 Balance -550 -3962 Lab Results Last 24 Hours: Laboratory Results - last 24 hr 06/12/21 06/12/21 06/12/21 Range/Units 15:29 15:29 15:33 WBC (3.98-10.04) K/mm3 RBC (3.98-5.22) M/mm3 Hgb (11.2-15.7) gm/dl Hct (34.1-44.9) % MCV (79.4-94.8) fl MCH (25.6-32.2) pg MCHC (32.2-35.5) g/dl RDW Std Deviation (36.4-46.3) fL Plt Count (182-369) K/mm3 MPV (9.4-12.3) fl Neut % (Auto) (34.0-71.1) % Lymph % (Auto) (19.3-51.7) % [place] % (Auto) (4.7-12.5) % Eos % (Auto) (0.7-5.8) Baso % (Auto) (0.1-1.2) % Neut # (Auto) (1.56-6.13) K/mm3 Lymph # (Auto) (1.18-3.74) K/mm3 [place] # (Auto) (0.24-0.36) K/mm3 Eos # (Auto) (0.04-0.36) K/mm3 Baso # (Auto) (0.01-0.08) K/mm3 Neutrophils % (Manual) (40-60) % Band Neutrophils % (0-10) % Lymphocytes % (Manual) (20-40) % Atypical Lymphs % % Monocytes % (Manual) (2-10) % Eosinophils % (Manual) (0.7-5.8) % Basophils % (Manual) (0.1-1.2) Manual Slide Review Platelet Estimate RBC Morph Comment PT (9.7-12.0) SECONDS INR APTT (21.7-31.4) SECONDS Sodium (136-145) mEq/L Potassium (3.5-5.1) mEq/L Chloride (98-107) mEq/L Carbon Dioxide (21-32) mEq/L Anion Gap (5-15) BUN (7-18) mg/dL Creatinine (0.55-1.02) mg/dL Est Cr Clr Drug Dosing mL/min Estimated GFR (MDRD) (>60) mL/min BUN/Creatinine Ratio (14-18) Glucose (70-99) mg/dL Lactic Acid (0.4-2.0) mmol/L Calcium (8.5-10.1) mg/dL Magnesium (1.8-2.4) mg/dL Total Bilirubin (0.2-1.0) mg/dL AST (15-37) U/L ALT (14-59) U/L Alkaline Phosphatase (46-116) U/L Creatine Kinase 1176 H (26-192) U/L Troponin I (0.00-0.056) ng/mL C-Reactive Protein (<1.0) mg/dL NT-Pro-B Natriuret Pep 7365 H (0-450) pg/mL Total Protein (6.4-8.2) g/dl Albumin (3.4-5.0) g/dl Globulin gm/dL Albumin/Globulin Ratio (1-2) Urine Color Yellow (Yellow) Urine Appearance Cloudy H (Clear) Urine pH 6.0 (5.0-8.0) Ur Specific [place] 1.020 (1.005-1.030) Urine Protein 1+ H (Negative) Urine Glucose (UA) Negative (Negative) Urine Ketones Negative (Negative) Urine Occult Blood 2+ H (Negative) Urine Nitrite Positive H (Negative) Urine Bilirubin Negative (Negative) Urine Urobilinogen 0.2 (0.2-1.0) Ur Leukocyte Esterase 3+ H (Negative) Urine RBC 10-20 H (0-5) /hpf Urine WBC >100 H (0-5) /hpf Ur Squamous Epith Cells 0-5 (0-5) /hpf Urine Bacteria Many H (FEW) /hpf Urine Mucus Not seen (FEW) /hpf SARS-CoV-2 RNA (CALEB) (NEGATIVE) MRSA (PCR) 06/12/21 06/12/21 06/12/21 Range/Units 15:33 15:39 15:39 WBC 15.65 H (3.98-10.04) K/mm3 RBC 4.09 (3.98-5.22) M/mm3 Hgb 12.6 (11.2-15.7) gm/dl Hct 39.0 (34.1-44.9) % MCV 95.4 H (79.4-94.8) fl MCH 30.8 (25.6-32.2) pg MCHC 32.3 (32.2-35.5) g/dl RDW Std Deviation 47.1 H (36.4-46.3) fL Plt Count 195 (182-369) K/mm3 MPV 9.8 (9.4-12.3) fl Neut % (Auto) (34.0-71.1) % Lymph % (Auto) (19.3-51.7) % [place] % (Auto) (4.7-12.5) % Eos % (Auto) (0.7-5.8) Baso % (Auto) (0.1-1.2) % Neut # (Auto) (1.56-6.13) K/mm3 Lymph # (Auto) (1.18-3.74) K/mm3 [place] # (Auto) (0.24-0.36) K/mm3 Eos # (Auto) (0.04-0.36) K/mm3 Baso # (Auto) (0.01-0.08) K/mm3 Neutrophils % (Manual) 80 H (40-60) % Band Neutrophils % 11 H (0-10) % Lymphocytes % (Manual) 1 L (20-40) % Atypical Lymphs % 3 % Monocytes % (Manual) 5 (2-10) % Eosinophils % (Manual) 0 L (0.7-5.8) % Basophils % (Manual) 0 L (0.1-1.2) Manual Slide Review Platelet Estimate Adequate RBC Morph Comment Normal PT 11.9 (9.7-12.0) SECONDS INR 1.11 APTT (21.7-31.4) SECONDS Sodium (136-145) mEq/L Potassium (3.5-5.1) mEq/L Chloride (98-107) mEq/L Carbon Dioxide (21-32) mEq/L Anion Gap (5-15) BUN (7-18) mg/dL Creatinine (0.55-1.02) mg/dL Est Cr Clr Drug Dosing mL/min Estimated GFR (MDRD) (>60) mL/min BUN/Creatinine Ratio (14-18) Glucose (70-99) mg/dL Lactic Acid (0.4-2.0) mmol/L Calcium (8.5-10.1) mg/dL Magnesium (1.8-2.4) mg/dL Total Bilirubin (0.2-1.0) mg/dL AST (15-37) U/L ALT (14-59) U/L Alkaline Phosphatase (46-116) U/L Creatine Kinase (26-192) U/L Troponin I (0.00-0.056) ng/mL C-Reactive Protein (<1.0) mg/dL NT-Pro-B Natriuret Pep (0-450) pg/mL Total Protein (6.4-8.2) g/dl Albumin (3.4-5.0) g/dl Globulin gm/dL Albumin/Globulin Ratio (1-2) Urine Color (Yellow) Urine Appearance (Clear) Urine pH (5.0-8.0) Ur Specific [place] (1.005-1.030) Urine Protein (Negative) Urine Glucose (UA) (Negative) Urine Ketones (Negative) Urine Occult Blood (Negative) Urine Nitrite (Negative) Urine Bilirubin (Negative) Urine Urobilinogen (0.2-1.0) Ur Leukocyte Esterase (Negative) Urine RBC (0-5) /hpf Urine WBC (0-5) /hpf Ur Squamous Epith Cells (0-5) /hpf Urine Bacteria (FEW) /hpf Urine Mucus (FEW) /hpf SARS-CoV-2 RNA (CALEB) Negative (NEGATIVE) MRSA (PCR) 06/12/21 06/12/21 06/12/21 Range/Units 15:39 15:39 18:06 WBC (3.98-10.04) K/mm3 RBC (3.98-5.22) M/mm3 Hgb (11.2-15.7) gm/dl Hct (34.1-44.9) % MCV (79.4-94.8) fl MCH (25.6-32.2) pg MCHC (32.2-35.5) g/dl RDW Std Deviation (36.4-46.3) fL Plt Count (182-369) K/mm3 MPV (9.4-12.3) fl Neut % (Auto) (34.0-71.1) % Lymph % (Auto) (19.3-51.7) % [place] % (Auto) (4.7-12.5) % Eos % (Auto) (0.7-5.8) Baso % (Auto) (0.1-1.2) % Neut # (Auto) (1.56-6.13) K/mm3 Lymph # (Auto) (1.18-3.74) K/mm3 [place] # (Auto) (0.24-0.36) K/mm3 Eos # (Auto) (0.04-0.36) K/mm3 Baso # (Auto) (0.01-0.08) K/mm3 Neutrophils % (Manual) (40-60) % Band Neutrophils % (0-10) % Lymphocytes % (Manual) (20-40) % Atypical Lymphs % % Monocytes % (Manual) (2-10) % Eosinophils % (Manual) (0.7-5.8) % Basophils % (Manual) (0.1-1.2) Manual Slide Review Platelet Estimate RBC Morph Comment PT (9.7-12.0) SECONDS INR APTT (21.7-31.4) SECONDS Sodium 144 (136-145) mEq/L Potassium 3.9 (3.5-5.1) mEq/L Chloride 108 H (98-107) mEq/L Carbon Dioxide 26 (21-32) mEq/L Anion Gap 13.9 (5-15) BUN 27 H (7-18) mg/dL Creatinine 1.2 H (0.55-1.02) mg/dL Est Cr Clr Drug Dosing 38.18 mL/min Estimated GFR (MDRD) 44 (>60) mL/min BUN/Creatinine Ratio 22.5 H (14-18) Glucose 123 H (70-99) mg/dL Lactic Acid 2.5 H* (0.4-2.0) mmol/L Calcium 9.3 (8.5-10.1) mg/dL Magnesium (1.8-2.4) mg/dL Total Bilirubin 1.5 H (0.2-1.0) mg/dL AST 216 H (15-37) U/L ALT 101 H (14-59) U/L Alkaline Phosphatase 232 H (46-116) U/L Creatine Kinase (26-192) U/L Troponin I 0.319 H* (0.00-0.056) ng/mL C-Reactive Protein 7.2 H* (<1.0) mg/dL NT-Pro-B Natriuret Pep (0-450) pg/mL Total Protein 6.6 (6.4-8.2) g/dl Albumin 2.8 L (3.4-5.0) g/dl Globulin 3.8 gm/dL Albumin/Globulin Ratio 0.7 L (1-2) Urine Color (Yellow) Urine Appearance (Clear) Urine pH (5.0-8.0) Ur Specific [place] (1.005-1.030) Urine Protein (Negative) Urine Glucose (UA) (Negative) Urine Ketones (Negative) Urine Occult Blood (Negative) Urine Nitrite (Negative) Urine Bilirubin (Negative) Urine Urobilinogen (0.2-1.0) Ur Leukocyte Esterase (Negative) Urine RBC (0-5) /hpf Urine WBC (0-5) /hpf Ur Squamous Epith Cells (0-5) /hpf Urine Bacteria (FEW) /hpf Urine Mucus (FEW) /hpf SARS-CoV-2 RNA (CALEB) (NEGATIVE) MRSA (PCR) Positive H 06/12/21 06/12/21 06/12/21 Range/Units 21:55 21:55 23:05 WBC (3.98-10.04) K/mm3 RBC (3.98-5.22) M/mm3 Hgb (11.2-15.7) gm/dl Hct (34.1-44.9) % MCV (79.4-94.8) fl MCH (25.6-32.2) pg MCHC (32.2-35.5) g/dl RDW Std Deviation (36.4-46.3) fL Plt Count (182-369) K/mm3 MPV (9.4-12.3) fl Neut % (Auto) (34.0-71.1) % Lymph % (Auto) (19.3-51.7) % [place] % (Auto) (4.7-12.5) % Eos % (Auto) (0.7-5.8) Baso % (Auto) (0.1-1.2) % Neut # (Auto) (1.56-6.13) K/mm3 Lymph # (Auto) (1.18-3.74) K/mm3 [place] # (Auto) (0.24-0.36) K/mm3 Eos # (Auto) (0.04-0.36) K/mm3 Baso # (Auto) (0.01-0.08) K/mm3 Neutrophils % (Manual) (40-60) % Band Neutrophils % (0-10) % Lymphocytes % (Manual) (20-40) % Atypical Lymphs % % Monocytes % (Manual) (2-10) % Eosinophils % (Manual) (0.7-5.8) % Basophils % (Manual) (0.1-1.2) Manual Slide Review Platelet Estimate RBC Morph Comment PT (9.7-12.0) SECONDS INR APTT 31.4 (21.7-31.4) SECONDS Sodium (136-145) mEq/L Potassium (3.5-5.1) mEq/L Chloride (98-107) mEq/L Carbon Dioxide (21-32) mEq/L Anion Gap (5-15) BUN (7-18) mg/dL Creatinine (0.55-1.02) mg/dL Est Cr Clr Drug Dosing mL/min Estimated GFR (MDRD) (>60) mL/min BUN/Creatinine Ratio (14-18) Glucose (70-99) mg/dL Lactic Acid 1.8 (0.4-2.0) mmol/L Calcium (8.5-10.1) mg/dL Magnesium (1.8-2.4) mg/dL Total Bilirubin (0.2-1.0) mg/dL AST (15-37) U/L ALT (14-59) U/L Alkaline Phosphatase (46-116) U/L Creatine Kinase (26-192) U/L Troponin I 1.045 H* (0.00-0.056) ng/mL C-Reactive Protein (<1.0) mg/dL NT-Pro-B Natriuret Pep (0-450) pg/mL Total Protein (6.4-8.2) g/dl Albumin (3.4-5.0) g/dl Globulin gm/dL Albumin/Globulin Ratio (1-2) Urine Color (Yellow) Urine Appearance (Clear) Urine pH (5.0-8.0) Ur Specific [place] (1.005-1.030) Urine Protein (Negative) Urine Glucose (UA) (Negative) Urine Ketones (Negative) Urine Occult Blood (Negative) Urine Nitrite (Negative) Urine Bilirubin (Negative) Urine Urobilinogen (0.2-1.0) Ur Leukocyte Esterase (Negative) Urine RBC (0-5) /hpf Urine WBC (0-5) /hpf Ur Squamous Epith Cells (0-5) /hpf Urine Bacteria (FEW) /hpf Urine Mucus (FEW) /hpf SARS-CoV-2 RNA (CALEB) (NEGATIVE) MRSA (PCR) 06/13/21 06/13/21 06/13/21 Range/Units 04:04 04:04 04:04 WBC 8.61 (3.98-10.04) K/mm3 RBC 3.93 L (3.98-5.22) M/mm3 Hgb 12.1 (11.2-15.7) gm/dl Hct 37.6 (34.1-44.9) % MCV 95.7 H (79.4-94.8) fl MCH 30.8 (25.6-32.2) pg MCHC 32.2 (32.2-35.5) g/dl RDW Std Deviation 48.5 H (36.4-46.3) fL Plt Count 155 L (182-369) K/mm3 MPV 9.8 (9.4-12.3) fl Neut % (Auto) 91.5 H (34.0-71.1) % Lymph % (Auto) 5.3 L (19.3-51.7) % [place] % (Auto) 2.9 L (4.7-12.5) % Eos % (Auto) 0 L (0.7-5.8) Baso % (Auto) 0.1 (0.1-1.2) % Neut # (Auto) 7.87 H (1.56-6.13) K/mm3 Lymph # (Auto) 0.46 L (1.18-3.74) K/mm3 [place] # (Auto) 0.25 (0.24-0.36) K/mm3 Eos # (Auto) 0.00 L (0.04-0.36) K/mm3 Baso # (Auto) 0.01 (0.01-0.08) K/mm3 Neutrophils % (Manual) (40-60) % Band Neutrophils % (0-10) % Lymphocytes % (Manual) (20-40) % Atypical Lymphs % % Monocytes % (Manual) (2-10) % Eosinophils % (Manual) (0.7-5.8) % Basophils % (Manual) (0.1-1.2) Manual Slide Review Abnormal smear Platelet Estimate RBC Morph Comment PT (9.7-12.0) SECONDS INR APTT (21.7-31.4) SECONDS Sodium 144 (136-145) mEq/L Potassium 3.0 L (3.5-5.1) mEq/L Chloride 108 H (98-107) mEq/L Carbon Dioxide 29 (21-32) mEq/L Anion Gap 10.0 (5-15) BUN 25 H (7-18) mg/dL Creatinine 1.1 H (0.55-1.02) mg/dL Est Cr Clr Drug Dosing 41.65 mL/min Estimated GFR (MDRD) 48 (>60) mL/min BUN/Creatinine Ratio 22.7 H (14-18) Glucose 116 H (70-99) mg/dL Lactic Acid (0.4-2.0) mmol/L Calcium 8.3 L (8.5-10.1) mg/dL Magnesium 1.0 L (1.8-2.4) mg/dL Total Bilirubin (0.2-1.0) mg/dL AST (15-37) U/L ALT (14-59) U/L Alkaline Phosphatase (46-116) U/L Creatine Kinase 1252 H (26-192) U/L Troponin I (0.00-0.056) ng/mL C-Reactive Protein (<1.0) mg/dL NT-Pro-B Natriuret Pep (0-450) pg/mL Total Protein (6.4-8.2) g/dl Albumin (3.4-5.0) g/dl Globulin gm/dL Albumin/Globulin Ratio (1-2) Urine Color (Yellow) Urine Appearance (Clear) Urine pH (5.0-8.0) Ur Specific [place] (1.005-1.030) Urine Protein (Negative) Urine Glucose (UA) (Negative) Urine Ketones (Negative) Urine Occult Blood (Negative) Urine Nitrite (Negative) Urine Bilirubin (Negative) Urine Urobilinogen (0.2-1.0) Ur Leukocyte Esterase (Negative) Urine RBC (0-5) /hpf Urine WBC (0-5) /hpf Ur Squamous Epith Cells (0-5) /hpf Urine Bacteria (FEW) /hpf Urine Mucus (FEW) /hpf SARS-CoV-2 RNA (CALEB) (NEGATIVE) MRSA (PCR) 06/13/21 06/13/21 Range/Units 04:04 04:04 WBC (3.98-10.04) K/mm3 RBC (3.98-5.22) M/mm3 Hgb (11.2-15.7) gm/dl Hct (34.1-44.9) % MCV (79.4-94.8) fl MCH (25.6-32.2) pg MCHC (32.2-35.5) g/dl RDW Std Deviation (36.4-46.3) fL Plt Count (182-369) K/mm3 MPV (9.4-12.3) fl Neut % (Auto) (34.0-71.1) % Lymph % (Auto) (19.3-51.7) % [place] % (Auto) (4.7-12.5) % Eos % (Auto) (0.7-5.8) Baso % (Auto) (0.1-1.2) % Neut # (Auto) (1.56-6.13) K/mm3 Lymph # (Auto) (1.18-3.74) K/mm3 [place] # (Auto) (0.24-0.36) K/mm3 Eos # (Auto) (0.04-0.36) K/mm3 Baso # (Auto) (0.01-0.08) K/mm3 Neutrophils % (Manual) (40-60) % Band Neutrophils % (0-10) % Lymphocytes % (Manual) (20-40) % Atypical Lymphs % % Monocytes % (Manual) (2-10) % Eosinophils % (Manual) (0.7-5.8) % Basophils % (Manual) (0.1-1.2) Manual Slide Review Platelet Estimate RBC Morph Comment PT (9.7-12.0) SECONDS INR APTT 84.9 H D (21.7-31.4) SECONDS Sodium (136-145) mEq/L Potassium (3.5-5.1) mEq/L Chloride (98-107) mEq/L Carbon Dioxide (21-32) mEq/L Anion Gap (5-15) BUN (7-18) mg/dL Creatinine (0.55-1.02) mg/dL Est Cr Clr Drug Dosing mL/min Estimated GFR (MDRD) (>60) mL/min BUN/Creatinine Ratio (14-18) Glucose (70-99) mg/dL Lactic Acid (0.4-2.0) mmol/L Calcium (8.5-10.1) mg/dL Magnesium (1.8-2.4) mg/dL Total Bilirubin (0.2-1.0) mg/dL AST (15-37) U/L ALT (14-59) U/L Alkaline Phosphatase (46-116) U/L Creatine Kinase (26-192) U/L Troponin I 0.981 H* (0.00-0.056) ng/mL C-Reactive Protein (<1.0) mg/dL NT-Pro-B Natriuret Pep (0-450) pg/mL Total Protein (6.4-8.2) g/dl Albumin (3.4-5.0) g/dl Globulin gm/dL Albumin/Globulin Ratio (1-2) Urine Color (Yellow) Urine Appearance (Clear) Urine pH (5.0-8.0) Ur Specific [place] (1.005-1.030) Urine Protein (Negative) Urine Glucose (UA) (Negative) Urine Ketones (Negative) Urine Occult Blood (Negative) Urine Nitrite (Negative) Urine Bilirubin (Negative) Urine Urobilinogen (0.2-1.0) Ur Leukocyte Esterase (Negative) Urine RBC (0-5) /hpf Urine WBC (0-5) /hpf Ur Squamous Epith Cells (0-5) /hpf Urine Bacteria (FEW) /hpf Urine Mucus (FEW) /hpf SARS-CoV-2 RNA (CALEB) (NEGATIVE) MRSA (PCR) Med Orders - Current: Current Medications Acetaminophen (Acetaminophen 325 Mg Tab) 650 mg PO Q4H PRN PRN Reason: Pain (Mild 1-3)/fever Last Admin: 06/13/21 06:27 Dose: 650 mg Documented by: Acetaminophen (Acetaminophen 650 Mg Supp) 650 mg RECTAL Q4H PRN PRN Reason: Fever Last Admin: 06/12/21 18:39 Dose: 650 mg Documented by: Docusate Sodium (Docusate Sodium 100 Mg Cap) 100 mg PO Q12H PRN PRN Reason: Constipation Docusate Sodium (Docusate Sodium 100 Mg Cap) 100 mg PO BID [facility] Last Admin: 06/12/21 21:55 Dose: Not Given Documented by: Famotidine (Famotidine 20 Mg/2 Ml Sdv) 20 mg IVPUSH BID [facility] Last Admin: 06/12/21 21:54 Dose: 20 mg Documented by: Furosemide (Furosemide 40 Mg/4 Ml Vial) 40 mg IVPUSH TID [facility] Last Admin: 06/12/21 21:54 Dose: 40 mg Documented by: Ceftriaxone Sodium 2 gm/ (Sodium Chloride) 100 mls @ 200 mls/hr IV Q24H [facility] Vancomycin HCl 1.25 gm/ Sodium (Chloride) 250 mls @ 250 mls/hr IV Q12H [facility] Heparin Sodium/Dextrose (Heparin 25,000 Units In D5w 500 Ml) 25,000 units in 500 mls @ 20 mls/hr IV TITRATE [facility]; Protocol Last Titration: 06/13/21 05:18 Dose: 15.6 mls/hr Documented by: Magnesium Oxide (Magnesium Oxide 400 Mg Tab) 400 mg PO BID [facility] Last Admin: 06/12/21 21:54 Dose: 400 mg Documented by: Metoprolol Succinate (Metoprolol Succinate 50 Mg Tab.Er) 50 mg PO DAILY [facility] Ondansetron HCl (Ondansetron 4 Mg Tab.Dis) 4 mg PO Q4H PRN PRN Reason: nausea, able to take PO Polyethylene Glycol (Polyethylene Glycol 3350 Powder 17 Gm Packet) 17 gm PO DAILY [facility] Sodium Chloride (Sodium Chloride 0.9% 10 Ml Syringe) 10 ml FLUSH ASDIRECTED PRN PRN Reason: Keep Vein Open Last Admin: 06/12/21 15:46 Dose: 10 ml Documented by: Temazepam (Temazepam 7.5 Mg Cap) 7.5 mg PO BEDTIME PRN PRN Reason: Sleep Vancomycin HCl (Pharmacy To Dose - Vancomycin) 1 dose .XX ASDIRECTED [facility] Discontinued Medications Aspirin (Aspirin 325 Mg Tab.Ec) 325 mg PO ONETIME ONE Stop: 06/12/21 22:46 Last Admin: 06/12/21 23:23 Dose: 325 mg Documented by: Clopidogrel Bisulfate (Clopidogrel 75 Mg Tab) 300 mg PO ONETIME ONE Stop: 06/12/21 22:46 Last Admin: 06/12/21 23:23 Dose: 300 mg Documented by: Furosemide (Furosemide 20 Mg Tab) 20 mg PO DAILY PRN PRN Reason: Edema Heparin Sodium (Porcine) (Heparin Sodium 5,000 Units/Ml Vial) 5,000 units SUBCUT Q8H [facility] Last Admin: 06/12/21 18:38 Dose: 5,000 units Documented by: Heparin Sodium (Porcine) (Heparin Sodium 5,000 Units/Ml Vial) 4,000 units IVPUSH ONETIME ONE Stop: 06/12/21 23:21 Last Admin: 06/13/21 00:15 Dose: 4,000 units Documented by: Sodium Chloride (Normal Saline) 1,000 mls @ 999 mls/hr IV ONETIME ONE; Protocol Stop: 06/12/21 16:28 Last Admin: 06/12/21 15:46 Dose: 999 mls/hr Documented by: Ceftriaxone Sodium 2 gm/ (Sodium Chloride) 100 mls @ 200 mls/hr IV ONETIME ONE Stop: 06/12/21 16:52 Last Admin: 06/12/21 16:28 Dose: 200 mls/hr Documented by: Vancomycin HCl 2 gm/ Sodium (Chloride) 500 mls @ 250 mls/hr IV ONETIME ONE Stop: 06/12/21 22:59 Last Admin: 06/12/21 22:01 Dose: 250 mls/hr Documented by: Vancomycin HCl (Vancomycin 1 Gm Sdv) Confirm Administered Dose 2 gm .ROUTE .STK- MED ONE Stop: 06/12/21 21:43 Last Admin: 06/12/21 21:55 Dose: Not Given Documented by: - Exam Quality Assessment: Supplemental Oxygen (3 liters) Urinary Catheter Total Time: 0Days 12Hours General: Lethargic, Other (aox1) HEENT: Pupils Equal, EOMI Neck: Supple Lungs: Clear to Auscultation, Normal Respiratory Effort Cardiovascular: Regular Rate, Other (ectopic beats occassional) GI/Abdominal Exam: Normal Bowel Sounds Back Exam: Normal Inspection Extremities: Normal Inspection Skin: Rash (lower extremitys POA, erythema, stage 2-3 skin breakdwn left lower ad stage 2 on lright lower, painful, and sacral stage 2) Neurological: Other (confusion) Psy/Mental Status: Alert, Normal Affect - Patient Data Lab Results Last 24 hrs: Laboratory Results - last 24 hr 06/12/21 06/12/21 06/12/21 Range/Units 15:29 15:29 15:33 WBC (3.98-10.04) K/mm3 RBC (3.98-5.22) M/mm3 Hgb (11.2-15.7) gm/dl Hct (34.1-44.9) % MCV (79.4-94.8) fl MCH (25.6-32.2) pg MCHC (32.2-35.5) g/dl RDW Std Deviation (36.4-46.3) fL Plt Count (182-369) K/mm3 MPV (9.4-12.3) fl Neut % (Auto) (34.0-71.1) % Lymph % (Auto) (19.3-51.7) % [place] % (Auto) (4.7-12.5) % Eos % (Auto) (0.7-5.8) Baso % (Auto) (0.1-1.2) % Neut # (Auto) (1.56-6.13) K/mm3 Lymph # (Auto) (1.18-3.74) K/mm3 [place] # (Auto) (0.24-0.36) K/mm3 Eos # (Auto) (0.04-0.36) K/mm3 Baso # (Auto) (0.01-0.08) K/mm3 Neutrophils % (Manual) (40-60) % Band Neutrophils % (0-10) % Lymphocytes % (Manual) (20-40) % Atypical Lymphs % % Monocytes % (Manual) (2-10) % Eosinophils % (Manual) (0.7-5.8) % Basophils % (Manual) (0.1-1.2) Manual Slide Review Platelet Estimate RBC Morph Comment PT (9.7-12.0) SECONDS INR APTT (21.7-31.4) SECONDS Sodium (136-145) mEq/L Potassium (3.5-5.1) mEq/L Chloride (98-107) mEq/L Carbon Dioxide (21-32) mEq/L Anion Gap (5-15) BUN (7-18) mg/dL Creatinine (0.55-1.02) mg/dL Est Cr Clr Drug Dosing mL/min Estimated GFR (MDRD) (>60) mL/min BUN/Creatinine Ratio (14-18) Glucose (70-99) mg/dL Lactic Acid (0.4-2.0) mmol/L Calcium (8.5-10.1) mg/dL Magnesium (1.8-2.4) mg/dL Total Bilirubin (0.2-1.0) mg/dL AST (15-37) U/L ALT (14-59) U/L Alkaline Phosphatase (46-116) U/L Creatine Kinase 1176 H (26-192) U/L Troponin I (0.00-0.056) ng/mL C-Reactive Protein (<1.0) mg/dL NT-Pro-B Natriuret Pep 7365 H (0-450) pg/mL Total Protein (6.4-8.2) g/dl Albumin (3.4-5.0) g/dl Globulin gm/dL Albumin/Globulin Ratio (1-2) Urine Color Yellow (Yellow) Urine Appearance Cloudy H (Clear) Urine pH 6.0 (5.0-8.0) Ur Specific [place] 1.020 (1.005-1.030) Urine Protein 1+ H (Negative) Urine Glucose (UA) Negative (Negative) Urine Ketones Negative (Negative) Urine Occult Blood 2+ H (Negative) Urine Nitrite Positive H (Negative) Urine Bilirubin Negative (Negative) Urine Urobilinogen 0.2 (0.2-1.0) Ur Leukocyte Esterase 3+ H (Negative) Urine RBC 10-20 H (0-5) /hpf Urine WBC >100 H (0-5) /hpf Ur Squamous Epith Cells 0-5 (0-5) /hpf Urine Bacteria Many H (FEW) /hpf Urine Mucus Not seen (FEW) /hpf SARS-CoV-2 RNA (CALEB) (NEGATIVE) MRSA (PCR) 06/12/21 06/12/21 06/12/21 Range/Units 15:33 15:39 15:39 WBC 15.65 H (3.98-10.04) K/mm3 RBC 4.09 (3.98-5.22) M/mm3 Hgb 12.6 (11.2-15.7) gm/dl Hct 39.0 (34.1-44.9) % MCV 95.4 H (79.4-94.8) fl MCH 30.8 (25.6-32.2) pg MCHC 32.3 (32.2-35.5) g/dl RDW Std Deviation 47.1 H (36.4-46.3) fL Plt Count 195 (182-369) K/mm3 MPV 9.8 (9.4-12.3) fl Neut % (Auto) (34.0-71.1) % Lymph % (Auto) (19.3-51.7) % [place] % (Auto) (4.7-12.5) % Eos % (Auto) (0.7-5.8) Baso % (Auto) (0.1-1.2) % Neut # (Auto) (1.56-6.13) K/mm3 Lymph # (Auto) (1.18-3.74) K/mm3 [place] # (Auto) (0.24-0.36) K/mm3 Eos # (Auto) (0.04-0.36) K/mm3 Baso # (Auto) (0.01-0.08) K/mm3 Neutrophils % (Manual) 80 H (40-60) % Band Neutrophils % 11 H (0-10) % Lymphocytes % (Manual) 1 L (20-40) % Atypical Lymphs % 3 % Monocytes % (Manual) 5 (2-10) % Eosinophils % (Manual) 0 L (0.7-5.8) % Basophils % (Manual) 0 L (0.1-1.2) Manual Slide Review Platelet Estimate Adequate RBC Morph Comment Normal PT 11.9 (9.7-12.0) SECONDS INR 1.11 APTT (21.7-31.4) SECONDS Sodium (136-145) mEq/L Potassium (3.5-5.1) mEq/L Chloride (98-107) mEq/L Carbon Dioxide (21-32) mEq/L Anion Gap (5-15) BUN (7-18) mg/dL Creatinine (0.55-1.02) mg/dL Est Cr Clr Drug Dosing mL/min Estimated GFR (MDRD) (>60) mL/min BUN/Creatinine Ratio (14-18) Glucose (70-99) mg/dL Lactic Acid (0.4-2.0) mmol/L Calcium (8.5-10.1) mg/dL Magnesium (1.8-2.4) mg/dL Total Bilirubin (0.2-1.0) mg/dL AST (15-37) U/L ALT (14-59) U/L Alkaline Phosphatase (46-116) U/L Creatine Kinase (26-192) U/L Troponin I (0.00-0.056) ng/mL C-Reactive Protein (<1.0) mg/dL NT-Pro-B Natriuret Pep (0-450) pg/mL Total Protein (6.4-8.2) g/dl Albumin (3.4-5.0) g/dl Globulin gm/dL Albumin/Globulin Ratio (1-2) Urine Color (Yellow) Urine Appearance (Clear) Urine pH (5.0-8.0) Ur Specific [place] (1.005-1.030) Urine Protein (Negative) Urine Glucose (UA) (Negative) Urine Ketones (Negative) Urine Occult Blood (Negative) Urine Nitrite (Negative) Urine Bilirubin (Negative) Urine Urobilinogen (0.2-1.0) Ur Leukocyte Esterase (Negative) Urine RBC (0-5) /hpf Urine WBC (0-5) /hpf Ur Squamous Epith Cells (0-5) /hpf Urine Bacteria (FEW) /hpf Urine Mucus (FEW) /hpf SARS-CoV-2 RNA (CALEB) Negative (NEGATIVE) MRSA (PCR) 06/12/21 06/12/21 06/12/21 Range/Units 15:39 15:39 18:06 WBC (3.98-10.04) K/mm3 RBC (3.98-5.22) M/mm3 Hgb (11.2-15.7) gm/dl Hct (34.1-44.9) % MCV (79.4-94.8) fl MCH (25.6-32.2) pg MCHC (32.2-35.5) g/dl RDW Std Deviation (36.4-46.3) fL Plt Count (182-369) K/mm3 MPV (9.4-12.3) fl Neut % (Auto) (34.0-71.1) % Lymph % (Auto) (19.3-51.7) % [place] % (Auto) (4.7-12.5) % Eos % (Auto) (0.7-5.8) Baso % (Auto) (0.1-1.2) % Neut # (Auto) (1.56-6.13) K/mm3 Lymph # (Auto) (1.18-3.74) K/mm3 [place] # (Auto) (0.24-0.36) K/mm3 Eos # (Auto) (0.04-0.36) K/mm3 Baso # (Auto) (0.01-0.08) K/mm3 Neutrophils % (Manual) (40-60) % Band Neutrophils % (0-10) % Lymphocytes % (Manual) (20-40) % Atypical Lymphs % % Monocytes % (Manual) (2-10) % Eosinophils % (Manual) (0.7-5.8) % Basophils % (Manual) (0.1-1.2) Manual Slide Review Platelet Estimate RBC Morph Comment PT (9.7-12.0) SECONDS INR APTT (21.7-31.4) SECONDS Sodium 144 (136-145) mEq/L Potassium 3.9 (3.5-5.1) mEq/L Chloride 108 H (98-107) mEq/L Carbon Dioxide 26 (21-32) mEq/L Anion Gap 13.9 (5-15) BUN 27 H (7-18) mg/dL Creatinine 1.2 H (0.55-1.02) mg/dL Est Cr Clr Drug Dosing 38.18 mL/min Estimated GFR (MDRD) 44 (>60) mL/min BUN/Creatinine Ratio 22.5 H (14-18) Glucose 123 H (70-99) mg/dL Lactic Acid 2.5 H* (0.4-2.0) mmol/L Calcium 9.3 (8.5-10.1) mg/dL Magnesium (1.8-2.4) mg/dL Total Bilirubin 1.5 H (0.2-1.0) mg/dL AST 216 H (15-37) U/L ALT 101 H (14-59) U/L Alkaline Phosphatase 232 H (46-116) U/L Creatine Kinase (26-192) U/L Troponin I 0.319 H* (0.00-0.056) ng/mL C-Reactive Protein 7.2 H* (<1.0) mg/dL NT-Pro-B Natriuret Pep (0-450) pg/mL Total Protein 6.6 (6.4-8.2) g/dl Albumin 2.8 L (3.4-5.0) g/dl Globulin 3.8 gm/dL Albumin/Globulin Ratio 0.7 L (1-2) Urine Color (Yellow) Urine Appearance (Clear) Urine pH (5.0-8.0) Ur Specific [place] (1.005-1.030) Urine Protein (Negative) Urine Glucose (UA) (Negative) Urine Ketones (Negative) Urine Occult Blood (Negative) Urine Nitrite (Negative) Urine Bilirubin (Negative) Urine Urobilinogen (0.2-1.0) Ur Leukocyte Esterase (Negative) Urine RBC (0-5) /hpf Urine WBC (0-5) /hpf Ur Squamous Epith Cells (0-5) /hpf Urine Bacteria (FEW) /hpf Urine Mucus (FEW) /hpf SARS-CoV-2 RNA (CALEB) (NEGATIVE) MRSA (PCR) Positive H 06/12/21 06/12/21 06/12/21 Range/Units 21:55 21:55 23:05 WBC (3.98-10.04) K/mm3 RBC (3.98-5.22) M/mm3 Hgb (11.2-15.7) gm/dl Hct (34.1-44.9) % MCV (79.4-94.8) fl MCH (25.6-32.2) pg MCHC (32.2-35.5) g/dl RDW Std Deviation (36.4-46.3) fL Plt Count (182-369) K/mm3 MPV (9.4-12.3) fl Neut % (Auto) (34.0-71.1) % Lymph % (Auto) (19.3-51.7) % [place] % (Auto) (4.7-12.5) % Eos % (Auto) (0.7-5.8) Baso % (Auto) (0.1-1.2) % Neut # (Auto) (1.56-6.13) K/mm3 Lymph # (Auto) (1.18-3.74) K/mm3 [place] # (Auto) (0.24-0.36) K/mm3 Eos # (Auto) (0.04-0.36) K/mm3 Baso # (Auto) (0.01-0.08) K/mm3 Neutrophils % (Manual) (40-60) % Band Neutrophils % (0-10) % Lymphocytes % (Manual) (20-40) % Atypical Lymphs % % Monocytes % (Manual) (2-10) % Eosinophils % (Manual) (0.7-5.8) % Basophils % (Manual) (0.1-1.2) Manual Slide Review Platelet Estimate RBC Morph Comment PT (9.7-12.0) SECONDS INR APTT 31.4 (21.7-31.4) SECONDS Sodium (136-145) mEq/L Potassium (3.5-5.1) mEq/L Chloride (98-107) mEq/L Carbon Dioxide (21-32) mEq/L Anion Gap (5-15) BUN (7-18) mg/dL Creatinine (0.55-1.02) mg/dL Est Cr Clr Drug Dosing mL/min Estimated GFR (MDRD) (>60) mL/min BUN/Creatinine Ratio (14-18) Glucose (70-99) mg/dL Lactic Acid 1.8 (0.4-2.0) mmol/L Calcium (8.5-10.1) mg/dL Magnesium (1.8-2.4) mg/dL Total Bilirubin (0.2-1.0) mg/dL AST (15-37) U/L ALT (14-59) U/L Alkaline Phosphatase (46-116) U/L Creatine Kinase (26-192) U/L Troponin I 1.045 H* (0.00-0.056) ng/mL C-Reactive Protein (<1.0) mg/dL NT-Pro-B Natriuret Pep (0-450) pg/mL Total Protein (6.4-8.2) g/dl Albumin (3.4-5.0) g/dl Globulin gm/dL Albumin/Globulin Ratio (1-2) Urine Color (Yellow) Urine Appearance (Clear) Urine pH (5.0-8.0) Ur Specific [place] (1.005-1.030) Urine Protein (Negative) Urine Glucose (UA) (Negative) Urine Ketones (Negative) Urine Occult Blood (Negative) Urine Nitrite (Negative) Urine Bilirubin (Negative) Urine Urobilinogen (0.2-1.0) Ur Leukocyte Esterase (Negative) Urine RBC (0-5) /hpf Urine WBC (0-5) /hpf Ur Squamous Epith Cells (0-5) /hpf Urine Bacteria (FEW) /hpf Urine Mucus (FEW) /hpf SARS-CoV-2 RNA (CALEB) (NEGATIVE) MRSA (PCR) 06/13/21 06/13/21 06/13/21 Range/Units 04:04 04:04 04:04 WBC 8.61 (3.98-10.04) K/mm3 RBC 3.93 L (3.98-5.22) M/mm3 Hgb 12.1 (11.2-15.7) gm/dl Hct 37.6 (34.1-44.9) % MCV 95.7 H (79.4-94.8) fl MCH 30.8 (25.6-32.2) pg MCHC 32.2 (32.2-35.5) g/dl RDW Std Deviation 48.5 H (36.4-46.3) fL Plt Count 155 L (182-369) K/mm3 MPV 9.8 (9.4-12.3) fl Neut % (Auto) 91.5 H (34.0-71.1) % Lymph % (Auto) 5.3 L (19.3-51.7) % [place] % (Auto) 2.9 L (4.7-12.5) % Eos % (Auto) 0 L (0.7-5.8) Baso % (Auto) 0.1 (0.1-1.2) % Neut # (Auto) 7.87 H (1.56-6.13) K/mm3 Lymph # (Auto) 0.46 L (1.18-3.74) K/mm3 [place] # (Auto) 0.25 (0.24-0.36) K/mm3 Eos # (Auto) 0.00 L (0.04-0.36) K/mm3 Baso # (Auto) 0.01 (0.01-0.08) K/mm3 Neutrophils % (Manual) (40-60) % Band Neutrophils % (0-10) % Lymphocytes % (Manual) (20-40) % Atypical Lymphs % % Monocytes % (Manual) (2-10) % Eosinophils % (Manual) (0.7-5.8) % Basophils % (Manual) (0.1-1.2) Manual Slide Review Abnormal smear Platelet Estimate RBC Morph Comment PT (9.7-12.0) SECONDS INR APTT (21.7-31.4) SECONDS Sodium 144 (136-145) mEq/L Potassium 3.0 L (3.5-5.1) mEq/L Chloride 108 H (98-107) mEq/L Carbon Dioxide 29 (21-32) mEq/L Anion Gap 10.0 (5-15) BUN 25 H (7-18) mg/dL Creatinine 1.1 H (0.55-1.02) mg/dL Est Cr Clr Drug Dosing 41.65 mL/min Estimated GFR (MDRD) 48 (>60) mL/min BUN/Creatinine Ratio 22.7 H (14-18) Glucose 116 H (70-99) mg/dL Lactic Acid (0.4-2.0) mmol/L Calcium 8.3 L (8.5-10.1) mg/dL Magnesium 1.0 L (1.8-2.4) mg/dL Total Bilirubin (0.2-1.0) mg/dL AST (15-37) U/L ALT (14-59) U/L Alkaline Phosphatase (46-116) U/L Creatine Kinase 1252 H (26-192) U/L Troponin I (0.00-0.056) ng/mL C-Reactive Protein (<1.0) mg/dL NT-Pro-B Natriuret Pep (0-450) pg/mL Total Protein (6.4-8.2) g/dl Albumin (3.4-5.0) g/dl Globulin gm/dL Albumin/Globulin Ratio (1-2) Urine Color (Yellow) Urine Appearance (Clear) Urine pH (5.0-8.0) Ur Specific [place] (1.005-1.030) Urine Protein (Negative) Urine Glucose (UA) (Negative) Urine Ketones (Negative) Urine Occult Blood (Negative) Urine Nitrite (Negative) Urine Bilirubin (Negative) Urine Urobilinogen (0.2-1.0) Ur Leukocyte Esterase (Negative) Urine RBC (0-5) /hpf Urine WBC (0-5) /hpf Ur Squamous Epith Cells (0-5) /hpf Urine Bacteria (FEW) /hpf Urine Mucus (FEW) /hpf SARS-CoV-2 RNA (CALEB) (NEGATIVE) MRSA (PCR) 06/13/21 06/13/21 Range/Units 04:04 04:04 WBC (3.98-10.04) K/mm3 RBC (3.98-5.22) M/mm3 Hgb (11.2-15.7) gm/dl Hct (34.1-44.9) % MCV (79.4-94.8) fl MCH (25.6-32.2) pg MCHC (32.2-35.5) g/dl RDW Std Deviation (36.4-46.3) fL Plt Count (182-369) K/mm3 MPV (9.4-12.3) fl Neut % (Auto) (34.0-71.1) % Lymph % (Auto) (19.3-51.7) % [place] % (Auto) (4.7-12.5) % Eos % (Auto) (0.7-5.8) Baso % (Auto) (0.1-1.2) % Neut # (Auto) (1.56-6.13) K/mm3 Lymph # (Auto) (1.18-3.74) K/mm3 [place] # (Auto) (0.24-0.36) K/mm3 Eos # (Auto) (0.04-0.36) K/mm3 Baso # (Auto) (0.01-0.08) K/mm3 Neutrophils % (Manual) (40-60) % Band Neutrophils % (0-10) % Lymphocytes % (Manual) (20-40) % Atypical Lymphs % % Monocytes % (Manual) (2-10) % Eosinophils % (Manual) (0.7-5.8) % Basophils % (Manual) (0.1-1.2) Manual Slide Review Platelet Estimate RBC Morph Comment PT (9.7-12.0) SECONDS INR APTT 84.9 H D (21.7-31.4) SECONDS Sodium (136-145) mEq/L Potassium (3.5-5.1) mEq/L Chloride (98-107) mEq/L Carbon Dioxide (21-32) mEq/L Anion Gap (5-15) BUN (7-18) mg/dL Creatinine (0.55-1.02) mg/dL Est Cr Clr Drug Dosing mL/min Estimated GFR (MDRD) (>60) mL/min BUN/Creatinine Ratio (14-18) Glucose (70-99) mg/dL Lactic Acid (0.4-2.0) mmol/L Calcium (8.5-10.1) mg/dL Magnesium (1.8-2.4) mg/dL Total Bilirubin (0.2-1.0) mg/dL AST (15-37) U/L ALT (14-59) U/L Alkaline Phosphatase (46-116) U/L Creatine Kinase (26-192) U/L Troponin I 0.981 H* (0.00-0.056) ng/mL C-Reactive Protein (<1.0) mg/dL NT-Pro-B Natriuret Pep (0-450) pg/mL Total Protein (6.4-8.2) g/dl Albumin (3.4-5.0) g/dl Globulin gm/dL Albumin/Globulin Ratio (1-2) Urine Color (Yellow) Urine Appearance (Clear) Urine pH (5.0-8.0) Ur Specific [place] (1.005-1.030) Urine Protein (Negative) Urine Glucose (UA) (Negative) Urine Ketones (Negative) Urine Occult Blood (Negative) Urine Nitrite (Negative) Urine Bilirubin (Negative) Urine Urobilinogen (0.2-1.0) Ur Leukocyte Esterase (Negative) Urine RBC (0-5) /hpf Urine WBC (0-5) /hpf Ur Squamous Epith Cells (0-5) /hpf Urine Bacteria (FEW) /hpf Urine Mucus (FEW) /hpf SARS-CoV-2 RNA (CALEB) (NEGATIVE) MRSA (PCR) Result Diagrams: 06/13/21 04:04 06/13/21 04:04 Sepsis Event Note - Evaluation Sepsis Screening Result: Possible Sepsis Risk - Focused Exam Vital Signs: Vital Signs Temp Temp Pulse Resp BP BP Pulse Ox 06/13/21 06:27 101.3 F H 06/13/21 04:45 100.1 F 06/13/21 03:45 118/52 L 06/13/21 03:12 101.3 F H 97 22 H 93/49 L 94 L 06/13/21 00:20 100.0 F 91 20 114/69 94 L 06/12/21 22:05 99.0 F 06/12/21 21:30 117/46 L 06/12/21 20:21 100.9 F H 86 20 131/106 H 95 06/12/21 19:30 101.2 F H - Problem List Review Problem List Initiated/Reviewed/Updated: Yes - My Orders Last 24 Hours: My Active Orders 06/12/21 16:33 Bedrest Bedside Commode [RC] ASDIRECTED Oxygen Therapy [RC] ASDIRECTED Vital Signs [RC] Q4HR Acetaminophen [TylenoL] 650 mg PO Q4H PRN Docusate Sodium [Colace] 100 mg PO Q12H PRN Ondansetron [Zofran ODT] 4 mg PO Q4H PRN Temazepam [Restoril] 7.5 mg PO BEDTIME PRN Resuscitation Status Routine 06/12/21 16:38 OT Evaluation and Treatment [CONS] Routine PT Evaluation and Treatment [CONS] Routine Precautions [COMM] Routine 06/12/21 16:43 Telemetry Monitoring [Cardiac Monitoring] [RC] . DIRECTED 06/12/21 Dinner Regular Diet [DIET] EKG 12 Lead [EK] Stat 06/12/21 17:14 Patient Status [ADT] Routine 06/12/21 18:21 Acetaminophen [Tylenol] 650 mg RECTAL Q4H PRN 06/12/21 20:45 Pharmacy to Dose - Vancomycin 1 dose .XX ASDIRECTED 06/12/21 21:00 Docusate Sodium [Colace] 100 mg PO BID Famotidine [Pepcid] 20 mg IVPUSH BID Furosemide [Lasix] 40 mg IVPUSH TID Magnesium Oxide 400 mg PO BID 06/12/21 22:41 EKG 12 Lead [EK] Stat 06/12/21 23:30 Heparin Sodium/D5W [Heparin 25,000 Units in D5W 500 ML] 25,000 units in 500 ml IV TITRATE 06/13/21 09:00 Metoprolol Succinate [Toprol XL] 50 mg PO DAILY Vancomycin 1.25 gm Sodium Chloride 0.9% [Normal Saline] 250 ml IV Q12H polyethylene glycoL 3350 [MiraLAX] 17 gm PO DAILY 06/13/21 14:00 cefTRIAXone [Rocephin] 2 gm Sodium Chloride 0.9% [Normal Saline] 100 ml IV Q24H 06/14/21 05:11 BASIC METABOLIC PANEL,BMP [CHEM] AM CBC WITH AUTO DIFF [HEME] AM MAGNESIUM [CHEM] AM 06/15/21 05:11 BASIC METABOLIC PANEL,BMP [CHEM] AM CBC WITH AUTO DIFF [HEME] AM MAGNESIUM [CHEM] AM 06/15/21 07:00 CBC W/O DIFF,HEMOGRAM [HEME] MOTH@0700 06/16/21 05:11 BASIC METABOLIC PANEL,BMP [CHEM] AM CBC WITH AUTO DIFF [HEME] AM MAGNESIUM [CHEM] AM 06/16/21 07:00 Echo 2D wo Cont [US] Stat 06/18/21 07:00 CBC W/O DIFF,HEMOGRAM [HEME] MOTH@69906/22/21 07:00 CBC W/O DIFF,HEMOGRAM [HEME] MOTH@69906/25/21 07:00 CBC W/O DIFF,HEMOGRAM [HEME] MOTH@69906/29/21 07:00 CBC W/O DIFF,HEMOGRAM [HEME] MOTH@69907/02/21 07:00 CBC W/O DIFF,HEMOGRAM [HEME] MOTH@699 - Plan Plan:: 1. sepsis without shock-elevated white count, fever, chills, positive UTI, notable aspiration, nausea, vomiting, Rocephin started in the ER, left shift, if nitrate, pending CT PK. 06/13 cont with chills, fevers, and has mrsa positive nasal swab. we will do a more broader coverage. Zosyn, vanc and we will also add fluconazole due to the severalty of a pityriasis versicolor and appearance on genital rash with satellite lesions -cont to have high fevers, tylenol cont and added ibuprofen, blood cultures ordered, fevers still >104 2. UTI acute-history of incontinence, takes fesoterodine which is now held 06/13 covered with antibiotics 3. acute CHF exacerbation -Pulmonary congestion on bilateral cxr -pending BNP, bilateral noted on chest x-ray, 1 L of fluids was given in the ER, continue home Lasix. History of questionable CHF, when CPK returns may need to alter fluids and diuresis. -bnp returns near 8000, lasix tid iv has been started with strict I and O 4. Elevated troponin-likely secondary to troponin leak, pending echo which will be able to be done till Tuesday, telemetry will continue, EKG which was not done in the ER will be ordered now, and repeat troponin in 6 hours. 06/13 increased and heparin started, asa, plavix and now plvix has been held, cont of heparin, cardiology did not feel they were a surgical canidate due to the sepsis. family was realistic about keeping her here and medically treaing. Troponin now coming down 5. Nausea and vomiting-will cover with Zofran 06/13 resolved, poor appetite 6. Elevated LFT-concern that it may be associated with rhabdomyolysis with pending CPK, or secondary to CHF exacerbation with BNP pending, pending overall work-up. 06/13 likely was due to chf exacerbation nad volume overload, should resolve over next few days 7. history of CHF-takes Lasix daily at home. Echocardiogram cannot be done until Tuesday, will continue metoprolol, Lasix, and patient is not on any aspirin. 06/13/21 well diuresed overnight 4500 off and will decrease the lasix to 20 bid iv. Strict in and out and plan for echo #8. Hypertension-continue metoprolol. labile 9. Asthma-asymptomatic, will add as needed albuterol if necessary 10. Chronic constipation-add Colace and MiraLAX. 11. possible rhabdo, asked for cpk but wrong lab ordered and repeat has been ordered now, appearing it will be elevated. Due to the severity of the chf, we iwll davie and repeat labs in al and no fluids at this time, She received 1 liter in er. Tellez in place 06/13/21 was mild elevated 1100 yesterday, she was given a liter but due to the severity of the chf exacerbation we held off any further fluids 12. metabolic encephalopathy 06/13 multifactorial- possible baseline dementia, due to bacteremia, hypoxia 13. decubitus acute- POA 06/13/21 PT called for wound care 14 NSTEMI- heparin, plavix, asa started when troponin increase. family is r ealistic and no transfer will be done 06/13/21 troponin decreasing, likely this is all secondary to demand ischemia yet no stress test, cardiology hx of echo done. Echo not available until tuesday. Might need stress test when stable. Will cont heparin drip and asa, hold off on plavix. speak with family further about plan 15. pityriasis versicolor- and generalized fungal infection- fluconazole started and topical zinc 16. anxiety- 06/13 ativan 0.5 prn bid added IV 17. hypomagnesium- 06/13 -2 grams given today ppx heparin full code time 36 min
[2021-06-13] MEDS ORDERED: Piperacillin/Tazobactam 3.375 GM in Sodium Chloride 0.9% 100 ML IV SCH (08:00)
[2021-06-13] MEDS ORDERED: Piperacillin/Tazobactam 4.5 GM in Sodium Chloride 0.9% 100 ML IV ONE (08:00)
[2021-06-13] MEDS: Famotidine 20 MG/2 ML SDV IVPUSH SCH ×2 (08:37→21:31)
[2021-06-13] MEDS: Magnesium Oxide 400 MG Tab PO SCH ×2 (08:37→21:31)
[2021-06-13] MEDS: Furosemide 40 MG/4 ML VIAL IVPUSH SCH (08:37)
[2021-06-13] MEDS: Docusate Sodium 100 MG Cap PO SCH ×2 (08:58→21:33)
[2021-06-13] MEDS: Polyethylene Glycol 3350 Powder 17 GM Packet PO SCH (08:58)
[2021-06-13] MEDS ORDERED: Metoprolol Succinate 50 MG Tab.ER PO SCH (09:00)
[2021-06-13] MEDS ORDERED: Magnesium Sulfate/Water 2 GM in Premix Bag 1 BAG IV ONE (09:02)
[2021-06-13] MEDS: Fluconazole/Normal Saline 200 MG in Premix Bag 1 BAG IV SCH (09:21)
[2021-06-13] MEDS: LORazepam 2 MG/ML SDV IVPUSH PRN (09:28)
[2021-06-13] MEDS ORDERED: Potassium Chloride 20 MEQ Tab.ER PO ONE (09:28)
[2021-06-13] MEDS ORDERED: Potassium Chloride 10 MEQ in Premix Bag 1 BAG IV ONE ×3 (09:28→13:00)
[2021-06-13] MEDS: Ibuprofen 600 MG Tab PO PRN (09:28)
[2021-06-13] MEDS: Vancomycin 1 GM, Vancomycin 250 MG in Sodium Chloride 0.9% 250 ML IV SCH ×2 (09:42→21:31)
[2021-06-13] MEDS ORDERED: oxyCODONE 5 MG Tab PO PRN (12:10)
[2021-06-13] MEDS ORDERED: cefTRIAXone 2 GM in Sodium Chloride 0.9% 100 ML IV SCH (14:00)
[2021-06-13] MEDS: Piperacillin/Tazobactam 4.5 GM in Sodium Chloride 0.9% 100 ML IV SCH ×2 (16:42→23:54)
[2021-06-14] MEDS: Ibuprofen 600 MG Tab PO PRN (04:27)
--- NOTE | 2021-06-14 07:18 | CR ---
Chest: AP and lateral views of the chest were obtained. Comparison: Previous chest x-ray of 03/14/20. Patchy areas of perihilar interstitial change are noted on both sides. Heart is slightly enlarged. Tortuous thoracic aorta is seen. Bony structures show osteopenia. Mild degenerative change is noted within the spine. Impression: 1. Increased perihilar interstitial change with slight cardiomegaly. Findings could represent diffuse bronchitis given the history of fever. Please correlate. 2. Other findings believed to be incidental as noted above. Diagnostic code #3
[2021-06-14] MEDS: Piperacillin/Tazobactam 4.5 GM in Sodium Chloride 0.9% 100 ML IV SCH ×2 (07:39→15:45)
[2021-06-14] MEDS: Vancomycin 1 GM, Vancomycin 250 MG in Sodium Chloride 0.9% 250 ML IV SCH ×2 (08:23→20:51)
[2021-06-14] MEDS: Potassium Chloride 20 MEQ Tab.ER PO SCH (08:23)
[2021-06-14] MEDS: Furosemide 20 MG/2 ML VIAL IVPUSH SCH (08:23)
[2021-06-14] MEDS: Famotidine 20 MG/2 ML SDV IVPUSH SCH (08:23)
[2021-06-14] MEDS: Magnesium Oxide 400 MG Tab PO SCH (08:23)
[2021-06-14] MEDS: Docusate Sodium 100 MG Cap PO SCH (08:54)
[2021-06-14] MEDS: Polyethylene Glycol 3350 Powder 17 GM Packet PO SCH (08:55)
[2021-06-14] MEDS ORDERED: Potassium Chloride 20 MEQ Tab.ER PO ONE (09:35)
[2021-06-14] MEDS ORDERED: Magnesium Sulfate/Water 4 GM in Premix Bag 1 BAG IV ONE (09:48)
--- NOTE | 2021-06-14 09:48 | PCM.PN ---
- General Info Date of Service: 06/14/21 Admission Dx/Problem (Free Text): Admission Diagnosis/Problem Admission Diagnosis/Problem Sepsis Subjective Update: Yana appears to be more awake and alert this morning. She does complain of the index and middle finger of her right hand being painful. She states that she had pain in left hand earlier this morning and received some medication that helped the pain. Nurse reports that the hand is now more swollen on the right. She states that her legs are less swollen. She has had liquid stool this morning but did have a solid stool yesterday. There is a report that she did a stool sample for her primary care provider that we do not have available at this time. - Review of Systems General: Denies: Fever Pulmonary: Denies: Shortness of Breath Cardiovascular: Reports: Edema. Denies: Chest Pain, Palpitations Gastrointestinal: Reports: Diarrhea Musculoskeletal: Reports: Joint Pain, Joint Swelling (Right index and middle finger) - Patient Data Vitals - Most Recent: Last Vital Signs Temp 97.2 F 06/14/21 08:06 Pulse 67 06/14/21 08:06 Resp 20 06/14/21 08:06 BP 100/66 06/14/21 08:06 Pulse Ox 93 L 06/14/21 08:06 Weight - Most Recent: 234 lb 3.2 oz I&O - Last 24 Hours: Intake & Output 06/13/21 06/14/21 06/14/21 22:59 06:59 14:59 Intake Total 938 650 Output Total 1100 700 Balance -162 -50 Lab Results Last 24 Hours: Laboratory Results - last 24 hr 06/13/21 06/13/21 06/13/21 Range/Units 08:00 12:41 17:01 WBC (3.98-10.04) K/mm3 RBC (3.98-5.22) M/mm3 Hgb (11.2-15.7) gm/dl Hct (34.1-44.9) % MCV (79.4-94.8) fl MCH (25.6-32.2) pg MCHC (32.2-35.5) g/dl RDW Std Deviation (36.4-46.3) fL Plt Count (182-369) K/mm3 MPV (9.4-12.3) fl Neut % (Auto) (34.0-71.1) % Lymph % (Auto) (19.3-51.7) % [place] % (Auto) (4.7-12.5) % Eos % (Auto) (0.7-5.8) Baso % (Auto) (0.1-1.2) % Neut # (Auto) (1.56-6.13) K/mm3 Lymph # (Auto) (1.18-3.74) K/mm3 [place] # (Auto) (0.24-0.36) K/mm3 Eos # (Auto) (0.04-0.36) K/mm3 Baso # (Auto) (0.01-0.08) K/mm3 Manual Slide Review APTT 61.4 H D 71.0 H (21.7-31.4) SECONDS Sodium (136-145) mEq/L Potassium 3.0 L (3.5-5.1) mEq/L Chloride (98-107) mEq/L Carbon Dioxide (21-32) mEq/L Anion Gap (5-15) BUN (7-18) mg/dL Creatinine (0.55-1.02) mg/dL Est Cr Clr Drug Dosing mL/min Estimated GFR (MDRD) (>60) mL/min BUN/Creatinine Ratio (14-18) Glucose (70-99) mg/dL Calcium (8.5-10.1) mg/dL Magnesium (1.8-2.4) mg/dL 06/13/21 06/13/21 06/14/21 Range/Units 17:01 20:00 03:34 WBC 5.65 (3.98-10.04) K/mm3 RBC 4.24 (3.98-5.22) M/mm3 Hgb 13.0 (11.2-15.7) gm/dl Hct 40.0 (34.1-44.9) % MCV 94.3 (79.4-94.8) fl MCH 30.7 (25.6-32.2) pg MCHC 32.5 (32.2-35.5) g/dl RDW Std Deviation 49.4 H (36.4-46.3) fL Plt Count 112 L (182-369) K/mm3 MPV 9.7 (9.4-12.3) fl Neut % (Auto) 92.3 H (34.0-71.1) % Lymph % (Auto) 5.7 L (19.3-51.7) % [place] % (Auto) 1.4 L (4.7-12.5) % Eos % (Auto) 0.2 L (0.7-5.8) Baso % (Auto) 0.2 (0.1-1.2) % Neut # (Auto) 5.22 (1.56-6.13) K/mm3 Lymph # (Auto) 0.32 L (1.18-3.74) K/mm3 [place] # (Auto) 0.08 L (0.24-0.36) K/mm3 Eos # (Auto) 0.01 L (0.04-0.36) K/mm3 Baso # (Auto) 0.01 (0.01-0.08) K/mm3 Manual Slide Review Abnormal smear APTT 60.9 H 85.8 H D (21.7-31.4) SECONDS Sodium (136-145) mEq/L Potassium (3.5-5.1) mEq/L Chloride (98-107) mEq/L Carbon Dioxide (21-32) mEq/L Anion Gap (5-15) BUN (7-18) mg/dL Creatinine (0.55-1.02) mg/dL Est Cr Clr Drug Dosing mL/min Estimated GFR (MDRD) (>60) mL/min BUN/Creatinine Ratio (14-18) Glucose (70-99) mg/dL Calcium (8.5-10.1) mg/dL Magnesium (1.8-2.4) mg/dL 06/14/21 06/14/21 Range/Units 03:34 03:34 WBC (3.98-10.04) K/mm3 RBC (3.98-5.22) M/mm3 Hgb (11.2-15.7) gm/dl Hct (34.1-44.9) % MCV (79.4-94.8) fl MCH (25.6-32.2) pg MCHC (32.2-35.5) g/dl RDW Std Deviation (36.4-46.3) fL Plt Count (182-369) K/mm3 MPV (9.4-12.3) fl Neut % (Auto) (34.0-71.1) % Lymph % (Auto) (19.3-51.7) % [place] % (Auto) (4.7-12.5) % Eos % (Auto) (0.7-5.8) Baso % (Auto) (0.1-1.2) % Neut # (Auto) (1.56-6.13) K/mm3 Lymph # (Auto) (1.18-3.74) K/mm3 [place] # (Auto) (0.24-0.36) K/mm3 Eos # (Auto) (0.04-0.36) K/mm3 Baso # (Auto) (0.01-0.08) K/mm3 Manual Slide Review APTT 76.9 H (21.7-31.4) SECONDS Sodium 141 (136-145) mEq/L Potassium 3.2 L (3.5-5.1) mEq/L Chloride 105 (98-107) mEq/L Carbon Dioxide 29 (21-32) mEq/L Anion Gap 10.2 (5-15) BUN 33 H (7-18) mg/dL Creatinine 1.4 H (0.55-1.02) mg/dL Est Cr Clr Drug Dosing 32.73 mL/min Estimated GFR (MDRD) 36 (>60) mL/min BUN/Creatinine Ratio 23.6 H (14-18) Glucose 84 (70-99) mg/dL Calcium 8.0 L (8.5-10.1) mg/dL Magnesium 1.4 L (1.8-2.4) mg/dL Leroy Results Last 24 Hours: Microbiology 06/12/21 16:00 Blood Culture - Preliminary Blood - Venous - Lab Draw 06/12/21 15:50 Blood Culture - Preliminary Blood - Venous Med Orders - Current: Current Medications Acetaminophen (Acetaminophen 325 Mg Tab) 650 mg PO Q4H PRN PRN Reason: Pain (Mild 1-3)/fever Last Admin: 06/13/21 17:14 Dose: 650 mg Documented by: Acetaminophen (Acetaminophen 650 Mg Supp) 650 mg RECTAL Q4H PRN PRN Reason: Fever Last Admin: 06/12/21 18:39 Dose: 650 mg Documented by: Docusate Sodium (Docusate Sodium 100 Mg Cap) 100 mg PO Q12H PRN PRN Reason: Constipation Docusate Sodium (Docusate Sodium 100 Mg Cap) 100 mg PO BID [facility] Last Admin: 06/14/21 08:54 Dose: Not Given Documented by: Enoxaparin Sodium (Enoxaparin 40 Mg/0.4 Ml Syringe) 40 mg SUBCUT DAILY [facility] Famotidine (Famotidine 20 Mg/2 Ml Sdv) 20 mg IVPUSH BID [facility] Last Admin: 06/14/21 08:23 Dose: 20 mg Documented by: Furosemide (Furosemide 20 Mg/2 Ml Vial) 20 mg IVPUSH DAILY [facility] Last Admin: 06/14/21 08:23 Dose: 20 mg Documented by: Fluconazole/Sodium Chloride (200 mg/ Premix) 100 mls @ 100 mls/hr IV Q24H [facility] Last Admin: 06/13/21 09:21 Dose: 100 mls/hr Documented by: Piperacillin Sod/Tazobactam (Sod 4.5 gm/ Sodium Chloride) 100 mls @ 25 mls/hr IV Q8H [facility] Last Admin: 06/14/21 07:39 Dose: 25 mls/hr Documented by: Vancomycin HCl 1 gm/Vancomycin HCl 250 mg/ Sodium Chloride 250 mls @ 250 mls/hr IV Q12H [facility] Last Admin: 06/14/21 08:23 Dose: 250 mls/hr Documented by: Ibuprofen (Ibuprofen 600 Mg Tab) 600 mg PO Q6H PRN PRN Reason: Pain/Fever Last Admin: 06/14/21 04:27 Dose: 600 mg Documented by: Lorazepam (Lorazepam 2 Mg/Ml Sdv) 0.5 mg IVPUSH BID PRN PRN Reason: Anxiety Last Admin: 06/13/21 09:28 Dose: 0.5 mg Documented by: Magnesium Oxide (Magnesium Oxide 400 Mg Tab) 400 mg PO BID [facility] Last Admin: 06/14/21 08:23 Dose: 400 mg Documented by: Ondansetron HCl (Ondansetron 4 Mg Tab.Dis) 4 mg PO Q4H PRN PRN Reason: nausea, able to take PO Polyethylene Glycol (Polyethylene Glycol 3350 Powder 17 Gm Packet) 17 gm PO DAILY [facility] Last Admin: 06/14/21 08:55 Dose: Not Given Documented by: Potassium Chloride (Potassium Chloride 20 Meq Tab.Er) 20 meq PO DAILY [facility] Last Admin: 06/14/21 08:23 Dose: 20 meq Documented by: Sodium Chloride (Sodium Chloride 0.9% 10 Ml Syringe) 10 ml FLUSH ASDIRECTED PRN PRN Reason: Keep Vein Open Last Admin: 06/12/21 15:46 Dose: 10 ml Documented by: Temazepam (Temazepam 7.5 Mg Cap) 7.5 mg PO BEDTIME PRN PRN Reason: Sleep Tramadol HCl (Tramadol 50 Mg Tab) 50 mg PO Q6H PRN PRN Reason: Pain Vancomycin HCl (Pharmacy To Dose - Vancomycin) 1 dose .XX ASDIRECTED [facility] Discontinued Medications Aspirin (Aspirin 325 Mg Tab.Ec) 325 mg PO ONETIME ONE Stop: 06/12/21 22:46 Last Admin: 06/12/21 23:23 Dose: 325 mg Documented by: Clopidogrel Bisulfate (Clopidogrel 75 Mg Tab) 300 mg PO ONETIME ONE Stop: 06/12/21 22:46 Last Admin: 06/12/21 23:23 Dose: 300 mg Documented by: Furosemide (Furosemide 20 Mg Tab) 20 mg PO DAILY PRN PRN Reason: Edema Furosemide (Furosemide 40 Mg/4 Ml Vial) 40 mg IVPUSH TID [facility] Last Admin: 06/13/21 08:37 Dose: 40 mg Documented by: Heparin Sodium (Porcine) (Heparin Sodium 5,000 Units/Ml Vial) 5,000 units SUBCUT Q8H [facility] Last Admin: 06/12/21 18:38 Dose: 5,000 units Documented by: Heparin Sodium (Porcine) (Heparin Sodium 5,000 Units/Ml Vial) 4,000 units IVPUSH ONETIME ONE Stop: 06/12/21 23:21 Last Admin: 06/13/21 00:15 Dose: 4,000 units Documented by: Sodium Chloride (Normal Saline) 1,000 mls @ 999 mls/hr IV ONETIME ONE; Protocol Stop: 06/12/21 16:28 Last Admin: 06/12/21 15:46 Dose: 999 mls/hr Documented by: Ceftriaxone Sodium 2 gm/ (Sodium Chloride) 100 mls @ 200 mls/hr IV ONETIME ONE Stop: 06/12/21 16:52 Last Admin: 06/12/21 16:28 Dose: 200 mls/hr Documented by: Ceftriaxone Sodium 2 gm/ (Sodium Chloride) 100 mls @ 200 mls/hr IV Q24H [facility] Vancomycin HCl 2 gm/ Sodium (Chloride) 500 mls @ 250 mls/hr IV ONETIME ONE Stop: 06/12/21 22:59 Last Admin: 06/12/21 22:01 Dose: 250 mls/hr Documented by: Vancomycin HCl 1.25 gm/ Sodium (Chloride) 250 mls @ 250 mls/hr IV Q12H [facility] Heparin Sodium/Dextrose (Heparin 25,000 Units In D5w 500 Ml) 25,000 units in 500 mls @ 20 mls/hr IV TITRATE [facility]; Protocol Last Titration: 06/14/21 04:08 Dose: 4.8 mls/hr Documented by: Piperacillin Sod/Tazobactam (Sod 3.375 gm/ Sodium Chloride) 100 mls @ 25 mls/hr IV Q8H [facility] Piperacillin Sod/Tazobactam (Sod 4.5 gm/ Sodium Chloride) 100 mls @ 200 mls/hr IV ONETIME ONE Stop: 06/13/21 08:29 Last Admin: 06/13/21 08:37 Dose: 200 mls/hr Documented by: Magnesium Sulfate 2 gm/ Premix 50 mls @ 25 mls/hr IV ONETIME ONE Stop: 06/13/21 11:01 Last Admin: 06/13/21 09:52 Dose: 25 mls/hr Documented by: Potassium Chloride 10 meq/ (Premix) 100 mls @ 100 mls/hr IV ONETIME ONE Stop: 06/13/21 10:27 Last Admin: 06/13/21 11:29 Dose: Not Given Documented by: Potassium Chloride 10 meq/ (Premix) 100 mls @ 100 mls/hr IV ONETIME ONE Stop: 06/13/21 11:59 Potassium Chloride 10 meq/ (Premix) 100 mls @ 100 mls/hr IV ONETIME ONE Stop: 06/13/21 13:59 Last Admin: 06/13/21 12:19 Dose: 100 mls/hr Documented by: Sodium Chloride (Normal Saline) 150 mls @ 50 mls/hr IV ASDIRECTED [facility] Last Admin: 06/13/21 12:19 Dose: 50 mls/hr Documented by: Metoprolol Succinate (Metoprolol Succinate 50 Mg Tab.Er) 50 mg PO DAILY [facility] Last Admin: 06/13/21 08:38 Dose: 50 mg Documented by: Multi-Ingred Cream/Lotion/Oil/Oint (Zinc Oxide 20% Oint 28.35 Gm Tube) 1 gm TOP Q1H [facility] Last Admin: 06/13/21 12:04 Dose: Not Given Documented by: Multi-Ingred Cream/Lotion/Oil/Oint (Zinc Oxide 20% Oint 28.35 Gm Tube) 1 gm TOP DAILY [facility] Stop: 06/14/21 09:01 Last Admin: 06/14/21 08:24 Dose: 1 gm Documented by: Oxycodone HCl (Oxycodone 5 Mg Tab) 5 mg PO Q6H PRN PRN Reason: Pain Potassium Chloride (Potassium Chloride 20 Meq Tab.Er) 40 meq PO ONETIME ONE Stop: 06/13/21 09:29 Last Admin: 06/13/21 10:37 Dose: 40 meq Documented by: Potassium Chloride (Potassium Chloride 20 Meq Tab.Er) 20 meq PO ONETIME ONE Stop: 06/14/21 09:36 Vancomycin HCl (Vancomycin 1 Gm Sdv) Confirm Administered Dose 2 gm .ROUTE .STK- MED ONE Stop: 06/12/21 21:43 Last Admin: 06/12/21 21:55 Dose: Not Given Documented by: - Exam Quality Assessment: Supplemental Oxygen, Urine Catheter Urinary Catheter Total Time: 1Days 6Hours General: Alert, Oriented HEENT: Pupils Equal, Mucous Membr. Moist/[place] Neck: Supple Lungs: Clear to Auscultation, Normal Respiratory Effort Cardiovascular: Regular Rate, Regular Rhythm GI/Abdominal Exam: Normal Bowel Sounds, Soft, Non-Tender Extremities: Other (Right second and third digits on the hand are swollen diffusely tender ) Skin: Warm, Dry, Intact Psy/Mental Status: Alert, Normal Affect, Normal Mood - Patient Data Lab Results Last 24 hrs: Laboratory Results - last 24 hr 06/13/21 06/13/21 06/13/21 Range/Units 08:00 12:41 17:01 WBC (3.98-10.04) K/mm3 RBC (3.98-5.22) M/mm3 Hgb (11.2-15.7) gm/dl Hct (34.1-44.9) % MCV (79.4-94.8) fl MCH (25.6-32.2) pg MCHC (32.2-35.5) g/dl RDW Std Deviation (36.4-46.3) fL Plt Count (182-369) K/mm3 MPV (9.4-12.3) fl Neut % (Auto) (34.0-71.1) % Lymph % (Auto) (19.3-51.7) % [place] % (Auto) (4.7-12.5) % Eos % (Auto) (0.7-5.8) Baso % (Auto) (0.1-1.2) % Neut # (Auto) (1.56-6.13) K/mm3 Lymph # (Auto) (1.18-3.74) K/mm3 [place] # (Auto) (0.24-0.36) K/mm3 Eos # (Auto) (0.04-0.36) K/mm3 Baso # (Auto) (0.01-0.08) K/mm3 Manual Slide Review APTT 61.4 H D 71.0 H (21.7-31.4) SECONDS Sodium (136-145) mEq/L Potassium 3.0 L (3.5-5.1) mEq/L Chloride (98-107) mEq/L Carbon Dioxide (21-32) mEq/L Anion Gap (5-15) BUN (7-18) mg/dL Creatinine (0.55-1.02) mg/dL Est Cr Clr Drug Dosing mL/min Estimated GFR (MDRD) (>60) mL/min BUN/Creatinine Ratio (14-18) Glucose (70-99) mg/dL Calcium (8.5-10.1) mg/dL Magnesium (1.8-2.4) mg/dL 06/13/21 06/13/21 06/14/21 Range/Units 17:01 20:00 03:34 WBC 5.65 (3.98-10.04) K/mm3 RBC 4.24 (3.98-5.22) M/mm3 Hgb 13.0 (11.2-15.7) gm/dl Hct 40.0 (34.1-44.9) % MCV 94.3 (79.4-94.8) fl MCH 30.7 (25.6-32.2) pg MCHC 32.5 (32.2-35.5) g/dl RDW Std Deviation 49.4 H (36.4-46.3) fL Plt Count 112 L (182-369) K/mm3 MPV 9.7 (9.4-12.3) fl Neut % (Auto) 92.3 H (34.0-71.1) % Lymph % (Auto) 5.7 L (19.3-51.7) % [place] % (Auto) 1.4 L (4.7-12.5) % Eos % (Auto) 0.2 L (0.7-5.8) Baso % (Auto) 0.2 (0.1-1.2) % Neut # (Auto) 5.22 (1.56-6.13) K/mm3 Lymph # (Auto) 0.32 L (1.18-3.74) K/mm3 [place] # (Auto) 0.08 L (0.24-0.36) K/mm3 Eos # (Auto) 0.01 L (0.04-0.36) K/mm3 Baso # (Auto) 0.01 (0.01-0.08) K/mm3 Manual Slide Review Abnormal smear APTT 60.9 H 85.8 H D (21.7-31.4) SECONDS Sodium (136-145) mEq/L Potassium (3.5-5.1) mEq/L Chloride (98-107) mEq/L Carbon Dioxide (21-32) mEq/L Anion Gap (5-15) BUN (7-18) mg/dL Creatinine (0.55-1.02) mg/dL Est Cr Clr Drug Dosing mL/min Estimated GFR (MDRD) (>60) mL/min BUN/Creatinine Ratio (14-18) Glucose (70-99) mg/dL Calcium (8.5-10.1) mg/dL Magnesium (1.8-2.4) mg/dL 06/14/21 06/14/21 Range/Units 03:34 03:34 WBC (3.98-10.04) K/mm3 RBC (3.98-5.22) M/mm3 Hgb (11.2-15.7) gm/dl Hct (34.1-44.9) % MCV (79.4-94.8) fl MCH (25.6-32.2) pg MCHC (32.2-35.5) g/dl RDW Std Deviation (36.4-46.3) fL Plt Count (182-369) K/mm3 MPV (9.4-12.3) fl Neut % (Auto) (34.0-71.1) % Lymph % (Auto) (19.3-51.7) % [place] % (Auto) (4.7-12.5) % Eos % (Auto) (0.7-5.8) Baso % (Auto) (0.1-1.2) % Neut # (Auto) (1.56-6.13) K/mm3 Lymph # (Auto) (1.18-3.74) K/mm3 [place] # (Auto) (0.24-0.36) K/mm3 Eos # (Auto) (0.04-0.36) K/mm3 Baso # (Auto) (0.01-0.08) K/mm3 Manual Slide Review APTT 76.9 H (21.7-31.4) SECONDS Sodium 141 (136-145) mEq/L Potassium 3.2 L (3.5-5.1) mEq/L Chloride 105 (98-107) mEq/L Carbon Dioxide 29 (21-32) mEq/L Anion Gap 10.2 (5-15) BUN 33 H (7-18) mg/dL Creatinine 1.4 H (0.55-1.02) mg/dL Est Cr Clr Drug Dosing 32.73 mL/min Estimated GFR (MDRD) 36 (>60) mL/min BUN/Creatinine Ratio 23.6 H (14-18) Glucose 84 (70-99) mg/dL Calcium 8.0 L (8.5-10.1) mg/dL Magnesium 1.4 L (1.8-2.4) mg/dL Result Diagrams: 06/14/21 03:34 06/14/21 03:34 Leroy Results Last 24 hrs: Microbiology 06/12/21 16:00 Blood Culture - Preliminary Blood - Venous - Lab Draw 06/12/21 15:50 Blood Culture - Preliminary Blood - Venous Imaging Impressions Last 24 hrs: X-ray right hand: No acute abnormalities appreciated on right hand exam. Severe arthritic changes throughout. Sepsis Event Note - Evaluation Sepsis Screening Result: Possible Sepsis Risk - Focused Exam Vital Signs: Vital Signs Temp Pulse Resp BP Pulse Ox 06/14/21 08:06 97.2 F 67 20 100/66 93 L 06/14/21 04:37 97.3 F 60 18 105/54 L 98 - Problem List & Annotations (1) Traumatic arthropathy, right hand SNOMED Code(s): 761721068, 954627866 Code(s): M12.541 - TRAUMATIC ARTHROPATHY, RIGHT HAND Status: Acute Current Visit: Yes (2) Acute kidney injury SNOMED Code(s): 22953937, 52249087 Code(s): N17.9 - ACUTE KIDNEY FAILURE, UNSPECIFIED Status: Acute Current Visit: Yes (3) Cellulitis of both lower extremities SNOMED Code(s): 571623615 Code(s): L03.115 - CELLULITIS OF RIGHT LOWER LIMB; L03.116 - CELLULITIS OF LEFT LOWER LIMB Status: Acute Current Visit: Yes (4) Dependent edema SNOMED Code(s): 060106034 Code(s): R60.9 - EDEMA, UNSPECIFIED Status: Acute Current Visit: Yes (5) Fall at home SNOMED Code(s): 49225495 Code(s): W19.XXXA - UNSPECIFIED FALL, INITIAL ENCOUNTER; Y92.009 - UNSP PLACE IN UNSP NON-INSTITUT (PRIVATE) RESIDENCE PLACE Status: Acute Current Visit: No (6) Hypokalemia SNOMED Code(s): 96815500 Code(s): E87.6 - HYPOKALEMIA Status: Acute Current Visit: Yes (7) Hypomagnesemia SNOMED Code(s): 374973431 Code(s): E83.42 - HYPOMAGNESEMIA Status: Acute Current Visit: Yes (8) UTI (urinary tract infection) SNOMED Code(s): 35552762 Code(s): N39.0 - URINARY TRACT INFECTION, SITE NOT SPECIFIED Status: Acute Current Visit: Yes Qualifiers: Urinary tract infection type: site unspecified Hematuria presence: with hematuria Qualified Code(s): N39.0 - Urinary tract infection, site not specified; R31.9 - Hematuria, unspecified (9) Elevated CK SNOMED Code(s): 880478337 Code(s): R74.8 - ABNORMAL LEVELS OF OTHER SERUM ENZYMES Status: Resolved Current Visit: Yes - Problem List Review Problem List Initiated/Reviewed/Updated: Yes - My Orders Last 24 Hours: My Active Orders 06/14/21 08:52 traMADol [Ultram] 50 mg PO Q6H PRN 06/14/21 09:32 Hand Comp Min 3V Rt [CR] Routine 06/14/21 09:39 Activity as Tolerated [RC] .Routine 06/15/21 09:00 Enoxaparin [Lovenox] 40 mg SUBCUT DAILY - Plan Plan:: 1. sepsis without shock-elevated white count, fever, chills, positive UTI, notable aspiration, nausea, vomiting, Rocephin started in the ER, left shift, if nitrate, pending CT PK. 06/13 cont with chills, fevers, and has mrsa positive nasal swab. we will do a more broader coverage. Zosyn, vanc and we will also add fluconazole due to the severalty of a pityriasis versicolor and appearance on genital rash with satellite lesions -Fevers have resolved -Continue Zosyn, vancomycin, and fluconazole 2. UTI acute-history of incontinence, takes fesoterodine which is now held 06/13 covered with antibiotics Blood cultures negative 3. acute CHF exacerbation -Pulmonary congestion on bilateral cxr, bilateral noted on chest x-ray, 1 L of fluids was given in the ER History of questionable CHF, when CPK returns may need to alter fluids and diuresis. -Continue Lasix 20 mg IV daily with strict I's and O's 4. Elevated troponin-likely secondary to troponin leak, pending echo which will be able to be done till Tuesday, telemetry will continue, EKG which was not done in the ER will be ordered now, and repeat troponin in 6 hours. 06/13 increased and heparin started, asa, plavix and now plvix has been held, cont of heparin, cardiology did not feel they were a surgical canidate due to the sepsis. family was realistic about keeping her here and medically treaing. Troponin now coming down -Heparin drip stopped today. -Continue to follow symptomatically 5. Nausea and vomiting-will cover with Zofran 06/13 resolved, poor appetite 6. Elevated LFT-concern that it may be associated with rhabdomyolysis with pending CPK, or secondary to CHF exacerbation with BNP pending, pending overall work-up. 06/13 likely was due to chf exacerbation nad volume overload, should resolve over next few days -LFTs not checked today we will check tomorrow. 7. history of CHF-takes Lasix daily at home. Echocardiogram cannot be done until Tuesday, will continue metoprolol, Lasix, 06/13/21 well diuresed overnight 4500 off and will decrease the lasix to 20 bid iv. Strict in and out and plan for echo -Patient still on 2 L of O2 and will continue on low-dose Lasix at 20 mg daily and follow her closely. -We will stop her Tellez catheter #8. Hypertension-continue metoprolol. labile 9. Asthma-asymptomatic, will add as needed albuterol if necessary 10. Chronic constipation-add Colace and MiraLAX. -Patient is having loose and watery stools. Review of her old chart shows that it is likely chronic now. Will stop her oral magnesium and treat with IV magnesium while in the hospital. Stop Colace and MiraLAX. 11. possible rhabdo, asked for cpk but wrong lab ordered and repeat has been ordered now, appearing it will be elevated. Due to the severity of the chf, we w ill diurese and repeat labs in am and no additional IV fluids at this time, She received 1 liter in er. Tellez in place 06/13/21 was mild elevated 1100 yesterday, she was given a liter but due to the severity of the chf exacerbation we held off any further fluids -Continue monitoring pain and renal function. 12. metabolic encephalopathy 06/13 multifactorial- possible baseline dementia, due to bacteremia, hypoxia -Greatly improved 13. decubitus acute- 06/13/21 PT called for wound care -Antibiotic ointment and Rolo wrap's twice daily 14 NSTEMI- heparin, plavix, asa started when troponin increase. family is realistic and no transfer will be done 06/13/21 troponin decreasing, likely this is all secondary to demand ischemia yet no stress test, cardiology hx of echo done. Echo not available until tuesday. -Continue aspirin -Heparin stopped -Likely a type II MO secondary to sepsis 15. pityriasis versicolor- and generalized fungal infection- fluconazole started and topical zinc 16. anxiety- 06/13 ativan 0.5 prn bid added IV 17. hypomagnesium/hypokalemia Supplement ppx heparin full code time 36 min
--- NOTE | 2021-06-14 10:16 | CR ---
Right hand: 4 views of the right hand were obtained. Comparison: No previous study is available. Shortened metacarpals are noted within the fourth and fifth digits. Joint space narrowing is noted within the MCP joints of the fourth and fifth digits. Mild joint space narrowing is seen within the DIP and PIP joints of the fourth and fifth digits. Severe joint space narrowing is noted off the distal navicular bone. No acute fracture, dislocation or other bony abnormality is seen. Impression: 1. Shortened fourth and fifth metacarpals. Joint space narrowing is seen diffusely within the fourth and fifth digits. 2. Severe joint space narrowing off the distal navicular bone. 3. No acute abnormality is appreciated on right hand exam. Diagnostic code #2
[2021-06-14] MEDS: traMADol 50 MG Tab PO PRN ×2 (10:27→18:48)
[2021-06-14] MEDS: Fluconazole/Normal Saline 200 MG in Premix Bag 1 BAG IV SCH (10:28)
[2021-06-14] MEDS: Bacitracin/Neomycin/Polymyxin B Oint 15 GM Tube TOP SCH ×2 (10:29→20:51)
[2021-06-15] MEDS: Piperacillin/Tazobactam 4.5 GM in Sodium Chloride 0.9% 100 ML IV SCH ×3 (00:35→15:19)
[2021-06-15] MEDS: Acetaminophen 325 MG Tab PO PRN ×2 (00:41→21:05)
[2021-06-15] MEDS: Aspirin 81 MG Tab.EC PO SCH (08:04)
[2021-06-15] MEDS: Potassium Chloride 20 MEQ Tab.ER PO SCH (08:04)
[2021-06-15] MEDS: Fluconazole/Normal Saline 200 MG in Premix Bag 1 BAG IV SCH (08:04)
[2021-06-15] MEDS: Furosemide 20 MG/2 ML VIAL IVPUSH SCH (08:04)
[2021-06-15] MEDS: Bacitracin/Neomycin/Polymyxin B Oint 15 GM Tube TOP SCH ×2 (08:05→21:05)
[2021-06-15] MEDS ORDERED: Albumin 25% 12.5 GM/50 ML BAG IV ONE ×2 (08:51→16:00)
[2021-06-15] MEDS ORDERED: Enoxaparin 40 MG/0.4 ML Syringe SUBCUT SCH (09:00)
--- NOTE | 2021-06-15 11:31 | PCM.PN ---
- General Info Date of Service: 06/15/21 Admission Dx/Problem (Free Text): Admission Diagnosis/Problem Admission Diagnosis/Problem Sepsis Subjective Update: Nursing reports patient is more confused today. She is having some hallucinations. I visited with her she did not know where she was or time, date, but you who she was. She also recognized the TV show that she was watching. She did complain of some leg pain. She has been afebrile and is now on room air. Urine culture pending Functional Status: Denies: Tolerating Diet (Poor diet) - Review of Systems General: Reports: Fatigue Psychiatric: Reports: Confusion - Patient Data Vitals - Most Recent: Last Vital Signs Temp 98.1 F 06/15/21 07:36 Pulse 63 06/15/21 07:36 Resp 20 06/15/21 07:36 BP 95/71 06/15/21 07:36 Pulse Ox 91 L 06/15/21 07:36 Weight - Most Recent: 236 lb 4.8 oz I&O - Last 24 Hours: Intake & Output 06/14/21 06/15/21 06/15/21 22:59 06:59 14:59 Intake Total 789 800 Output Total 300 Balance 489 800 Lab Results Last 24 Hours: Laboratory Results - last 24 hr 06/14/21 06/14/21 06/15/21 Range/Units 16:04 20:41 05:45 WBC 4.07 (3.98-10.04) K/mm3 RBC 4.21 (3.98-5.22) M/mm3 Hgb 12.9 (11.2-15.7) gm/dl Hct 39.3 (34.1-44.9) % MCV 93.3 (79.4-94.8) fl MCH 30.6 (25.6-32.2) pg MCHC 32.8 (32.2-35.5) g/dl RDW Std Deviation 49.0 H (36.4-46.3) fL Plt Count 108 L (182-369) K/mm3 MPV 11.5 (9.4-12.3) fl Neut % (Auto) 70.3 (34.0-71.1) % Lymph % (Auto) 21.1 (19.3-51.7) % [place] % (Auto) 6.9 (4.7-12.5) % Eos % (Auto) 1.0 (0.7-5.8) Baso % (Auto) 0.2 (0.1-1.2) % Neut # (Auto) 2.86 (1.56-6.13) K/mm3 Lymph # (Auto) 0.86 L (1.18-3.74) K/mm3 [place] # (Auto) 0.28 (0.24-0.36) K/mm3 Eos # (Auto) 0.04 (0.04-0.36) K/mm3 Baso # (Auto) 0.01 (0.01-0.08) K/mm3 Sodium (136-145) mEq/L Potassium (3.5-5.1) mEq/L Chloride (98-107) mEq/L Carbon Dioxide (21-32) mEq/L Anion Gap (5-15) BUN (7-18) mg/dL Creatinine (0.55-1.02) mg/dL Est Cr Clr Drug Dosing mL/min Estimated GFR (MDRD) (>60) mL/min BUN/Creatinine Ratio (14-18) Glucose (70-99) mg/dL Calcium (8.5-10.1) mg/dL Magnesium (1.8-2.4) mg/dL Total Bilirubin (0.2-1.0) mg/dL AST (15-37) U/L ALT (14-59) U/L Alkaline Phosphatase (46-116) U/L Creatine Kinase (26-192) U/L Total Protein (6.4-8.2) g/dl Albumin (3.4-5.0) g/dl Globulin gm/dL Albumin/Globulin Ratio (1-2) Vancomycin Trough 32.5 H (10.0-20.0) C.difficile 027-NAP1-B1 Presumptive negative C. difficile Tox (PCR) Negative 06/15/21 06/15/21 Range/Units 05:45 05:45 WBC (3.98-10.04) K/mm3 RBC (3.98-5.22) M/mm3 Hgb (11.2-15.7) gm/dl Hct (34.1-44.9) % MCV (79.4-94.8) fl MCH (25.6-32.2) pg MCHC (32.2-35.5) g/dl RDW Std Deviation (36.4-46.3) fL Plt Count (182-369) K/mm3 MPV (9.4-12.3) fl Neut % (Auto) (34.0-71.1) % Lymph % (Auto) (19.3-51.7) % [place] % (Auto) (4.7-12.5) % Eos % (Auto) (0.7-5.8) Baso % (Auto) (0.1-1.2) % Neut # (Auto) (1.56-6.13) K/mm3 Lymph # (Auto) (1.18-3.74) K/mm3 [place] # (Auto) (0.24-0.36) K/mm3 Eos # (Auto) (0.04-0.36) K/mm3 Baso # (Auto) (0.01-0.08) K/mm3 Sodium 140 (136-145) mEq/L Potassium 3.2 L (3.5-5.1) mEq/L Chloride 105 (98-107) mEq/L Carbon Dioxide 28 (21-32) mEq/L Anion Gap 10.2 (5-15) BUN 42 H (7-18) mg/dL Creatinine 1.5 H (0.55-1.02) mg/dL Est Cr Clr Drug Dosing 30.54 mL/min Estimated GFR (MDRD) 34 (>60) mL/min BUN/Creatinine Ratio 28.0 H (14-18) Glucose 61 L (70-99) mg/dL Calcium 8.1 L (8.5-10.1) mg/dL Magnesium 2.0 (1.8-2.4) mg/dL Total Bilirubin 2.3 H (0.2-1.0) mg/dL AST 103 H (15-37) U/L ALT 78 H (14-59) U/L Alkaline Phosphatase 219 H (46-116) U/L Creatine Kinase 171 (26-192) U/L Total Protein 4.6 L (6.4-8.2) g/dl Albumin 1.8 L (3.4-5.0) g/dl Globulin 2.8 gm/dL Albumin/Globulin Ratio 0.6 L (1-2) Vancomycin Trough (10.0-20.0) C.difficile 027-NAP1-B1 C. difficile Tox (PCR) [facility] Results Last 24 Hours: Microbiology 06/13/21 10:16 Blood Culture - Preliminary Blood - Venous - Lab Draw 06/13/21 10:10 Blood Culture - Preliminary Blood - Venous 06/12/21 15:33 Urine Culture - Preliminary Urine Klebsiella Pneumoniae 06/12/21 16:00 Blood Culture - Preliminary Blood - Venous - Lab Draw 06/12/21 15:50 Blood Culture - Preliminary Blood - Venous Med Orders - Current: Current Medications Acetaminophen (Acetaminophen 325 Mg Tab) 650 mg PO Q4H PRN PRN Reason: Pain (Mild 1-3)/fever Last Admin: 06/15/21 00:41 Dose: 650 mg Documented by: Acetaminophen (Acetaminophen 650 Mg Supp) 650 mg RECTAL Q4H PRN PRN Reason: Fever Last Admin: 06/12/21 18:39 Dose: 650 mg Documented by: Aspirin (Aspirin 81 Mg Tab.Ec) 81 mg PO DAILY [facility] Last Admin: 06/15/21 08:04 Dose: 81 mg Documented by: Docusate Sodium (Docusate Sodium 100 Mg Cap) 100 mg PO Q12H PRN PRN Reason: Constipation Enoxaparin Sodium (Enoxaparin 40 Mg/0.4 Ml Syringe) 40 mg SUBCUT DAILY [facility] Last Admin: 06/15/21 08:05 Dose: 40 mg Documented by: Fluconazole/Sodium Chloride (200 mg/ Premix) 100 mls @ 100 mls/hr IV Q24H [facility] Last Admin: 06/15/21 08:04 Dose: 100 mls/hr Documented by: Piperacillin Sod/Tazobactam (Sod 4.5 gm/ Sodium Chloride) 100 mls @ 25 mls/hr IV Q8H [facility] Last Admin: 06/15/21 08:04 Dose: 25 mls/hr Documented by: Albumin Human (Flexbumin 25%) 12.5 gm in 50 mls @ 100 mls/hr IV ONETIME ONE Stop: 06/15/21 16:29 Ibuprofen (Ibuprofen 600 Mg Tab) 600 mg PO Q6H PRN PRN Reason: Pain/Fever Last Admin: 06/14/21 04:27 Dose: 600 mg Documented by: Lorazepam (Lorazepam 2 Mg/Ml Sdv) 0.5 mg IVPUSH BID PRN PRN Reason: Anxiety Last Admin: 06/13/21 09:28 Dose: 0.5 mg Documented by: Neomycin/Polymyxin/Bacitracin (Bacitracin/Neomycin/Polymyxin B Oint 15 Gm Tube) 0 gm TOP BID [facility] Last Admin: 06/15/21 08:05 Dose: 1 applic Documented by: Ondansetron HCl (Ondansetron 4 Mg Tab.Dis) 4 mg PO Q4H PRN PRN Reason: nausea, able to take PO Potassium Chloride (Potassium Chloride 20 Meq Tab.Er) 20 meq PO DAILY [facility] Last Admin: 06/15/21 08:04 Dose: 20 meq Documented by: Potassium Chloride (Potassium Chloride 20 Meq Tab.Er) 20 meq PO ONETIME ONE Stop: 06/15/21 17:01 Sodium Chloride (Sodium Chloride 0.9% 10 Ml Syringe) 10 ml FLUSH ASDIRECTED PRN PRN Reason: Keep Vein Open Last Admin: 06/12/21 15:46 Dose: 10 ml Documented by: Temazepam (Temazepam 7.5 Mg Cap) 7.5 mg PO BEDTIME PRN PRN Reason: Sleep Tramadol HCl (Tramadol 50 Mg Tab) 50 mg PO Q6H PRN PRN Reason: Pain Last Admin: 06/14/21 18:48 Dose: 50 mg Documented by: Vancomycin HCl (Pharmacy To Dose - Vancomycin) 1 dose .XX ASDIRECTED [facility] Discontinued Medications Aspirin (Aspirin 325 Mg Tab.Ec) 325 mg PO ONETIME ONE Stop: 06/12/21 22:46 Last Admin: 06/12/21 23:23 Dose: 325 mg Documented by: Clopidogrel Bisulfate (Clopidogrel 75 Mg Tab) 300 mg PO ONETIME ONE Stop: 06/12/21 22:46 Last Admin: 06/12/21 23:23 Dose: 300 mg Documented by: Docusate Sodium (Docusate Sodium 100 Mg Cap) 100 mg PO BID [facility] Last Admin: 06/14/21 08:54 Dose: Not Given Documented by: Famotidine (Famotidine 20 Mg/2 Ml Sdv) 20 mg IVPUSH BID [facility] Last Admin: 06/14/21 08:23 Dose: 20 mg Documented by: Furosemide (Furosemide 20 Mg Tab) 20 mg PO DAILY PRN PRN Reason: Edema Furosemide (Furosemide 40 Mg/4 Ml Vial) 40 mg IVPUSH TID [facility] Last Admin: 06/13/21 08:37 Dose: 40 mg Documented by: Furosemide (Furosemide 20 Mg/2 Ml Vial) 20 mg IVPUSH DAILY [facility] Last Admin: 06/15/21 08:04 Dose: 20 mg Documented by: Heparin Sodium (Porcine) (Heparin Sodium 5,000 Units/Ml Vial) 5,000 units SUBCUT Q8H [facility] Last Admin: 06/12/21 18:38 Dose: 5,000 units Documented by: Heparin Sodium (Porcine) (Heparin Sodium 5,000 Units/Ml Vial) 4,000 units IVPUSH ONETIME ONE Stop: 06/12/21 23:21 Last Admin: 06/13/21 00:15 Dose: 4,000 units Documented by: Sodium Chloride (Normal Saline) 1,000 mls @ 999 mls/hr IV ONETIME ONE; Protocol Stop: 06/12/21 16:28 Last Admin: 06/12/21 15:46 Dose: 999 mls/hr Documented by: Ceftriaxone Sodium 2 gm/ (Sodium Chloride) 100 mls @ 200 mls/hr IV ONETIME ONE Stop: 06/12/21 16:52 Last Admin: 06/12/21 16:28 Dose: 200 mls/hr Documented by: Ceftriaxone Sodium 2 gm/ (Sodium Chloride) 100 mls @ 200 mls/hr IV Q24H [facility] Vancomycin HCl 2 gm/ Sodium (Chloride) 500 mls @ 250 mls/hr IV ONETIME ONE Stop: 06/12/21 22:59 Last Admin: 06/12/21 22:01 Dose: 250 mls/hr Documented by: Vancomycin HCl 1.25 gm/ Sodium (Chloride) 250 mls @ 250 mls/hr IV Q12H [facility] Heparin Sodium/Dextrose (Heparin 25,000 Units In D5w 500 Ml) 25,000 units in 500 mls @ 20 mls/hr IV TITRATE [facility]; Protocol Last Titration: 06/14/21 04:08 Dose: 4.8 mls/hr Documented by: Piperacillin Sod/Tazobactam (Sod 3.375 gm/ Sodium Chloride) 100 mls @ 25 mls/hr IV Q8H [facility] Piperacillin Sod/Tazobactam (Sod 4.5 gm/ Sodium Chloride) 100 mls @ 200 mls/hr IV ONETIME ONE Stop: 06/13/21 08:29 Last Admin: 06/13/21 08:37 Dose: 200 mls/hr Documented by: Vancomycin HCl 1 gm/Vancomycin HCl 250 mg/ Sodium Chloride 250 mls @ 250 mls/hr IV Q12H [facility] Last Admin: 06/14/21 20:51 Dose: 250 mls/hr Documented by: Magnesium Sulfate 2 gm/ Premix 50 mls @ 25 mls/hr IV ONETIME ONE Stop: 06/13/21 11:01 Last Admin: 06/13/21 09:52 Dose: 25 mls/hr Documented by: Potassium Chloride 10 meq/ (Premix) 100 mls @ 100 mls/hr IV ONETIME ONE Stop: 06/13/21 10:27 Last Admin: 06/13/21 11:29 Dose: Not Given Documented by: Potassium Chloride 10 meq/ (Premix) 100 mls @ 100 mls/hr IV ONETIME ONE Stop: 06/13/21 11:59 Potassium Chloride 10 meq/ (Premix) 100 mls @ 100 mls/hr IV ONETIME ONE Stop: 06/13/21 13:59 Last Admin: 06/13/21 12:19 Dose: 100 mls/hr Documented by: Sodium Chloride (Normal Saline) 150 mls @ 50 mls/hr IV ASDIRECTED [facility] Last Admin: 06/13/21 12:19 Dose: 50 mls/hr Documented by: Magnesium Sulfate 4 gm/ Premix 50 mls @ 12.5 mls/hr IV ONETIME ONE Stop: 06/14/21 13:47 Last Admin: 06/14/21 10:28 Dose: 12.5 mls/hr Documented by: Albumin Human (Flexbumin 25%) 12.5 gm in 50 mls @ 100 mls/hr IV ONETIME ONE Stop: 06/15/21 09:20 Last Admin: 06/15/21 09:40 Dose: 80 mls/hr Documented by: Magnesium Oxide (Magnesium Oxide 400 Mg Tab) 400 mg PO BID [facility] Last Admin: 06/14/21 08:23 Dose: 400 mg Documented by: Metoprolol Succinate (Metoprolol Succinate 50 Mg Tab.Er) 50 mg PO DAILY [facility] Last Admin: 06/13/21 08:38 Dose: 50 mg Documented by: Multi-Ingred Cream/Lotion/Oil/Oint (Zinc Oxide 20% Oint 28.35 Gm Tube) 1 gm TOP Q1H [facility] Last Admin: 06/13/21 12:04 Dose: Not Given Documented by: Multi-Ingred Cream/Lotion/Oil/Oint (Zinc Oxide 20% Oint 28.35 Gm Tube) 1 gm TOP DAILY [facility] Stop: 06/14/21 09:01 Last Admin: 06/14/21 08:24 Dose: 1 gm Documented by: Oxycodone HCl (Oxycodone 5 Mg Tab) 5 mg PO Q6H PRN PRN Reason: Pain Pharmacy Consult (Pharmacy Consult Order) 1 each .XX ASDIRECTED [facility] Polyethylene Glycol (Polyethylene Glycol 3350 Powder 17 Gm Packet) 17 gm PO DAILY [facility] Last Admin: 06/14/21 08:55 Dose: Not Given Documented by: Potassium Chloride (Potassium Chloride 20 Meq Tab.Er) 40 meq PO ONETIME ONE Stop: 06/13/21 09:29 Last Admin: 06/13/21 10:37 Dose: 40 meq Documented by: Potassium Chloride (Potassium Chloride 20 Meq Tab.Er) 20 meq PO ONETIME ONE Stop: 06/14/21 09:36 Last Admin: 06/14/21 10:28 Dose: 20 meq Documented by: Vancomycin HCl (Vancomycin 1 Gm Sdv) Confirm Administered Dose 2 gm .ROUTE .STK- MED ONE Stop: 06/12/21 21:43 Last Admin: 06/12/21 21:55 Dose: Not Given Documented by: - Exam Quality Assessment: No: Supplemental Oxygen, Urine Catheter Urinary Catheter Total Time: 1Days 23Hours General: Alert. No: Oriented HEENT: Pupils Equal, Mucous Membr. Moist/Espy Neck: Supple Lungs: Clear to Auscultation, Normal Respiratory Effort Cardiovascular: Regular Rate, Regular Rhythm GI/Abdominal Exam: Normal Bowel Sounds, Soft, Non-Tender Extremities: Pedal Edema (Bilateral lower extremities chronic in nature), Other (Legs wrapped with Rolo wraps). No: Non-Tender (Diffuse tenderness) Skin: Warm, Dry, Intact Psy/Mental Status: Alert, Normal Affect, Normal Mood - Patient Data Lab Results Last 24 hrs: Laboratory Results - last 24 hr 06/14/21 06/14/21 06/15/21 Range/Units 16:04 20:41 05:45 WBC 4.07 (3.98-10.04) K/mm3 RBC 4.21 (3.98-5.22) M/mm3 Hgb 12.9 (11.2-15.7) gm/dl Hct 39.3 (34.1-44.9) % MCV 93.3 (79.4-94.8) fl MCH 30.6 (25.6-32.2) pg MCHC 32.8 (32.2-35.5) g/dl RDW Std Deviation 49.0 H (36.4-46.3) fL Plt Count 108 L (182-369) K/mm3 MPV 11.5 (9.4-12.3) fl Neut % (Auto) 70.3 (34.0-71.1) % Lymph % (Auto) 21.1 (19.3-51.7) % [place] % (Auto) 6.9 (4.7-12.5) % Eos % (Auto) 1.0 (0.7-5.8) Baso % (Auto) 0.2 (0.1-1.2) % Neut # (Auto) 2.86 (1.56-6.13) K/mm3 Lymph # (Auto) 0.86 L (1.18-3.74) K/mm3 [place] # (Auto) 0.28 (0.24-0.36) K/mm3 Eos # (Auto) 0.04 (0.04-0.36) K/mm3 Baso # (Auto) 0.01 (0.01-0.08) K/mm3 Sodium (136-145) mEq/L Potassium (3.5-5.1) mEq/L Chloride (98-107) mEq/L Carbon Dioxide (21-32) mEq/L Anion Gap (5-15) BUN (7-18) mg/dL Creatinine (0.55-1.02) mg/dL Est Cr Clr Drug Dosing mL/min Estimated GFR (MDRD) (>60) mL/min BUN/Creatinine Ratio (14-18) Glucose (70-99) mg/dL Calcium (8.5-10.1) mg/dL Magnesium (1.8-2.4) mg/dL Total Bilirubin (0.2-1.0) mg/dL AST (15-37) U/L ALT (14-59) U/L Alkaline Phosphatase (46-116) U/L Creatine Kinase (26-192) U/L Total Protein (6.4-8.2) g/dl Albumin (3.4-5.0) g/dl Globulin gm/dL Albumin/Globulin Ratio (1-2) Vancomycin Trough 32.5 H (10.0-20.0) C.difficile 027-NAP1-B1 Presumptive negative C. difficile Tox (PCR) Negative 06/15/21 06/15/21 Range/Units 05:45 05:45 WBC (3.98-10.04) K/mm3 RBC (3.98-5.22) M/mm3 Hgb (11.2-15.7) gm/dl Hct (34.1-44.9) % MCV (79.4-94.8) fl MCH (25.6-32.2) pg MCHC (32.2-35.5) g/dl RDW Std Deviation (36.4-46.3) fL Plt Count (182-369) K/mm3 MPV (9.4-12.3) fl Neut % (Auto) (34.0-71.1) % Lymph % (Auto) (19.3-51.7) % [place] % (Auto) (4.7-12.5) % Eos % (Auto) (0.7-5.8) Baso % (Auto) (0.1-1.2) % Neut # (Auto) (1.56-6.13) K/mm3 Lymph # (Auto) (1.18-3.74) K/mm3 [place] # (Auto) (0.24-0.36) K/mm3 Eos # (Auto) (0.04-0.36) K/mm3 Baso # (Auto) (0.01-0.08) K/mm3 Sodium 140 (136-145) mEq/L Potassium 3.2 L (3.5-5.1) mEq/L Chloride 105 (98-107) mEq/L Carbon Dioxide 28 (21-32) mEq/L Anion Gap 10.2 (5-15) BUN 42 H (7-18) mg/dL Creatinine 1.5 H (0.55-1.02) mg/dL Est Cr Clr Drug Dosing 30.54 mL/min Estimated GFR (MDRD) 34 (>60) mL/min BUN/Creatinine Ratio 28.0 H (14-18) Glucose 61 L (70-99) mg/dL Calcium 8.1 L (8.5-10.1) mg/dL Magnesium 2.0 (1.8-2.4) mg/dL Total Bilirubin 2.3 H (0.2-1.0) mg/dL AST 103 H (15-37) U/L ALT 78 H (14-59) U/L Alkaline Phosphatase 219 H (46-116) U/L Creatine Kinase 171 (26-192) U/L Total Protein 4.6 L (6.4-8.2) g/dl Albumin 1.8 L (3.4-5.0) g/dl Globulin 2.8 gm/dL Albumin/Globulin Ratio 0.6 L (1-2) Vancomycin Trough (10.0-20.0) C.difficile 027-NAP1-B1 C. difficile Tox (PCR) Pulmonary urine culture Klebsiella pneumonia Result Diagrams: 06/15/21 05:45 06/15/21 05:45 [facility] Results Last 24 hrs: Microbiology 06/13/21 10:16 Blood Culture - Preliminary Blood - Venous - Lab Draw 06/13/21 10:10 Blood Culture - Preliminary Blood - Venous 06/12/21 15:33 Urine Culture - Preliminary Urine Klebsiella Pneumoniae 06/12/21 16:00 Blood Culture - Preliminary Blood - Venous - Lab Draw 06/12/21 15:50 Blood Culture - Preliminary Blood - Venous Sepsis Event Note - Evaluation Sepsis Screening Result: No Definite Risk - Focused Exam Vital Signs: Vital Signs Temp Pulse Resp BP Pulse Ox 06/15/21 07:36 98.1 F 63 20 95/71 91 L 06/15/21 05:28 97.7 F 66 18 131/94 H 94 L 06/15/21 04:41 69 93 L 06/15/21 04:15 97.9 F 65 18 103/82 92 L 06/15/21 00:38 101/71 06/15/21 00:36 97.5 F 65 18 94/44 L 98 - Problem List & Annotations (1) Traumatic arthropathy, right hand SNOMED Code(s): 604640941, 306650048 Code(s): M12.541 - TRAUMATIC ARTHROPATHY, RIGHT HAND Status: Acute Current Visit: Yes (2) Acute kidney injury SNOMED Code(s): 69940975, 77564704 Code(s): N17.9 - ACUTE KIDNEY FAILURE, UNSPECIFIED Status: Acute Current Visit: Yes (3) Cellulitis of both lower extremities SNOMED Code(s): 228351371 Code(s): L03.115 - CELLULITIS OF RIGHT LOWER LIMB; L03.116 - CELLULITIS OF LEFT LOWER LIMB Status: Acute Current Visit: Yes (4) Dependent edema SNOMED Code(s): 707257129 Code(s): R60.9 - EDEMA, UNSPECIFIED Status: Acute Current Visit: Yes (5) Fall at home SNOMED Code(s): 31085096 Code(s): W19.XXXA - UNSPECIFIED FALL, INITIAL ENCOUNTER; Y92.009 - UNSP PLACE IN UNSP NON-INSTITUT (PRIVATE) RESIDENCE PLACE Status: Acute Current Visit: No (6) Hypokalemia SNOMED Code(s): 13771334 Code(s): E87.6 - HYPOKALEMIA Status: Acute Current Visit: Yes (7) Hypomagnesemia SNOMED Code(s): 225532198 Code(s): E83.42 - HYPOMAGNESEMIA Status: Acute Current Visit: Yes (8) UTI (urinary tract infection) SNOMED Code(s): 02957151 Code(s): N39.0 - URINARY TRACT INFECTION, SITE NOT SPECIFIED Status: Acute Current Visit: Yes Qualifiers: Urinary tract infection type: site unspecified Hematuria presence: with hematuria Qualified Code(s): N39.0 - Urinary tract infection, site not specified; R31.9 - Hematuria, unspecified (9) Elevated CK SNOMED Code(s): 783012414 Code(s): R74.8 - ABNORMAL LEVELS OF OTHER SERUM ENZYMES Status: Resolved Current Visit: Yes - Problem List Review Problem List Initiated/Reviewed/Updated: Yes - My Orders Last 24 Hours: My Active Orders 06/14/21 10:30 Bacitracin/Neomycin/Polymyxin [Neosporin Oint] 0 gm TOP BID 06/14/21 10:51 Incentive Spirometry [RT Incentive Spirometry] [RC] Q1HWA 06/15/21 08:55 UA W/MICROSCOPIC [URIN] Routine 06/15/21 09:00 Aspirin [Halfprin] 81 mg PO DAILY Enoxaparin [Lovenox] 40 mg SUBCUT DAILY 06/15/21 16:00 Albumin 25% [Flexbumin 25%] 12.5 gm in 50 ml IV ONETIME 06/15/21 17:00 Potassium Chloride [Klor-Con M20] 20 meq PO ONETIME ONE 06/16/21 05:11 CMP [COMPREHENSIVE METABOLIC PN,CMP] [CHEM] AM - Plan Plan:: 1. sepsis without shock-elevated white count, fever, chills, positive UTI, notable aspiration, nausea, vomiting, Rocephin started in the ER, left shift, if nitrate, pending CT PK. 06/13 cont with chills, fevers, and has mrsa positive nasal swab. we will do a more broader coverage. Zosyn, vanc and we will also add fluconazole due to the severalty of a pityriasis versicolor and appearance on genital rash with satellite lesions -Fevers have resolved -White count now normal -Continue Zosyn, and fluconazole -Last day of fluconazole -Urine culture positive for Klebsiella pneumoniae pending sensitivities 2. UTI acute-history of incontinence, takes fesoterodine which is now held 06/13 covered with antibiotics -Blood cultures negative -Urine culture: Klebsiella pneumonia 3. acute CHF exacerbation -Pulmonary congestion on bilateral cxr, bilateral noted on chest x-ray, 1 L of fluids was given in the ER History of questionable CHF, when CPK returns may need to alter fluids and diuresis. -Lab work suggest mild dehydration with a BUN of 42 and a creatinine of 1.5. -Patient already received Lasix this morning -Hold Lasix tomorrow and restart p.o. Lasix on Tuesday. 4. Elevated troponin-likely secondary to troponin leak, pending echo which will be able to be done till Tuesday, telemetry will continue, EKG which was not done in the ER will be ordered now, and repeat troponin in 6 hours. 06/13 increased and heparin started, asa, plavix and now plvix has been held, cont of heparin, cardiology did not feel they were a surgical canidate due to the sepsis. family was realistic about keeping her here and medically treaing. Troponin now coming down -Heparin drip stopped today. -Continue to follow symptomatically 5. Nausea and vomiting-will cover with Zofran 06/13 resolved, poor appetite 6. Elevated LFT-concern that it may be associated with rhabdomyolysis with pending CPK, or secondary to CHF exacerbation with BNP pending, pending overall work-up. 06/13 likely was due to chf exacerbation nad volume overload, should resolve over next few days -Total bilirubin increased to 2.3 and albumin decreased to 1.8. Enzymes improved. -Concern Diflucan could cause worsening of LFTs. -Patient received last day of Diflucan today. -Give albumin to hopefully improve mobilization of fluid from third space 7. history of CHF-takes Lasix daily at home. Echocardiogram cannot be done until Tuesday, will continue metoprolol, Lasix, 06/13/21 well diuresed overnight 4500 off and will decrease the lasix to 20 bid iv. Strict in and out and plan for echo -Now on room air air. -Hold Lasix tomorrow -Recheck CMP in the morning #8. Hypertension-continue metoprolol. Stabilized 9. Asthma-asymptomatic, will add as needed albuterol if necessary 10. Chronic constipation-add Colace and MiraLAX. -Patient is having loose and watery stools. Review of her old chart shows that it is likely chronic now. Will stop her oral magnesium and treat with IV magnesium while in the hospital. Stop Colace and MiraLAX. 11. possible rhabdo, asked for cpk but wrong lab ordered and repeat has been ordered now, appearing it will be elevated. Due to the severity of the chf, we will diurese and repeat labs in am and no additional IV fluids at this time, She received 1 liter in er. Tellez in place 06/13/21 was mild elevated 1100 yesterday, she was given a liter but due to the severity of the chf exacerbation we held off any further fluids -CK has normalized -Renal function has worsened but likely secondary to prerenal disease -Continue to monitor. 12. metabolic encephalopathy 06/13 multifactorial- possible baseline dementia, due to bacteremia, hypoxia -Waxing and waning consistent with dementia and possible delirium on dementia 13. decubitus acute- 06/13/21 PT called for wound care -Antibiotic ointment and Rolo wrap's twice daily -Continue Zosyn until culture results on urine and then switch to oral medications 14 NSTEMI- heparin, plavix, asa started when troponin increase. family is realistic and no transfer will be done 06/13/21 troponin decreasing, likely this is all secondary to demand ischemia yet no stress test, cardiology hx of echo done. Echo not available until tuesday. -Continue aspirin -Heparin stopped -Likely a type II FL secondary to sepsis 15. pityriasis versicolor- and generalized fungal infection- fluconazole started and topical zinc 16. anxiety- 06/13 ativan 0.5 prn bid added IV 17. hypomagnesium/hypokalemia Supplement as needed ppx heparin full code time 36 min
[2021-06-15] MEDS: LORazepam 2 MG/ML SDV IVPUSH PRN (12:20)
[2021-06-15] MEDS ORDERED: Lactated Ringers 1,000 ML IV SCH (14:30)
[2021-06-15] MEDS: Potassium Chloride 20 MEQ Tab.ER PO ONE ×3 (17:02→18:30)
[2021-06-15] MEDS: Sulfamethoxazole/Trimethoprim 800-160 MG Tab PO SCH (21:05)
[2021-06-16] MEDS: Acetaminophen 325 MG Tab PO PRN ×3 (02:42→20:47)
[2021-06-16] MEDS ORDERED: Magnesium Sulfate/Water 2 GM in Premix Bag 1 BAG IV ONE (09:05)
[2021-06-16] MEDS: Lactated Ringers 1,000 ML IV SCH ×2 (09:29→23:04)
[2021-06-16] MEDS: Aspirin 81 MG Tab.EC PO SCH (09:31)
[2021-06-16] MEDS: Sulfamethoxazole/Trimethoprim 800-160 MG Tab PO SCH ×2 (09:31→20:23)
[2021-06-16] MEDS: Potassium Chloride 20 MEQ Tab.ER PO SCH (09:31)
[2021-06-16] MEDS: Bacitracin/Neomycin/Polymyxin B Oint 15 GM Tube TOP SCH (11:50)
--- NOTE | 2021-06-16 13:03 | PCM.PN ---
- General Info Date of Service: 06/16/21 Admission Dx/Problem (Free Text): Admission Diagnosis/Problem Admission Diagnosis/Problem Sepsis Subjective Update: Patient is more awake and oriented today. She was oriented to place, person, and most of time. She denied any pain. She did have Unna boots placed today by PT. Functional Status: Reports: Pain Controlled - Review of Systems General: Reports: Fatigue HEENT: Reports: No Symptoms Pulmonary: Reports: No Symptoms Cardiovascular: Reports: No Symptoms Gastrointestinal: Reports: No Symptoms - Patient Data Vitals - Most Recent: Last Vital Signs Temp 98.2 F 06/16/21 11:22 Pulse 72 06/16/21 11:22 Resp 16 06/16/21 11:22 BP 138/48 L 06/16/21 11:22 Pulse Ox 92 L 06/16/21 11:22 Weight - Most Recent: 232 lb 9.6 oz I&O - Last 24 Hours: Intake & Output 06/15/21 06/16/21 06/16/21 22:59 06:59 14:59 Intake Total 1660 200 Balance 1660 200 Lab Results Last 24 Hours: Laboratory Results - last 24 hr 06/16/21 06/16/21 Range/Units 06:16 06:16 WBC 5.59 (3.98-10.04) K/mm3 RBC 4.04 (3.98-5.22) M/mm3 Hgb 12.5 (11.2-15.7) gm/dl Hct 37.3 (34.1-44.9) % MCV 92.3 (79.4-94.8) fl MCH 30.9 (25.6-32.2) pg MCHC 33.5 (32.2-35.5) g/dl RDW Std Deviation 47.9 H (36.4-46.3) fL Plt Count 81 L (182-369) K/mm3 MPV 11.1 (9.4-12.3) fl Neut % (Auto) 56.1 (34.0-71.1) % Lymph % (Auto) 33.1 (19.3-51.7) % Davis % (Auto) 8.6 (4.7-12.5) % Eos % (Auto) 1.4 (0.7-5.8) Baso % (Auto) 0.4 (0.1-1.2) % Neut # (Auto) 3.14 (1.56-6.13) K/mm3 Lymph # (Auto) 1.85 (1.18-3.74) K/mm3 Davis # (Auto) 0.48 H (0.24-0.36) K/mm3 Eos # (Auto) 0.08 (0.04-0.36) K/mm3 Baso # (Auto) 0.02 (0.01-0.08) K/mm3 Manual Slide Review Abnormal smear Sodium 144 (136-145) mEq/L Potassium 3.5 (3.5-5.1) mEq/L Chloride 108 H (98-107) mEq/L Carbon Dioxide 26 (21-32) mEq/L Anion Gap 13.5 (5-15) BUN 47 H (7-18) mg/dL Creatinine 1.7 H (0.55-1.02) mg/dL Est Cr Clr Drug Dosing 26.95 mL/min Estimated GFR (MDRD) 29 (>60) mL/min BUN/Creatinine Ratio 27.6 H (14-18) Glucose 78 (70-99) mg/dL Calcium 8.6 (8.5-10.1) mg/dL Magnesium 1.7 L (1.8-2.4) mg/dL Total Bilirubin 1.7 H (0.2-1.0) mg/dL AST 68 H (15-37) U/L ALT 64 H (14-59) U/L Alkaline Phosphatase 241 H (46-116) U/L Total Protein 5.0 L (6.4-8.2) g/dl Albumin 2.2 L (3.4-5.0) g/dl Globulin 2.8 gm/dL Albumin/Globulin Ratio 0.8 L (1-2) Leroy Results Last 24 Hours: Microbiology 06/12/21 15:33 Urine Culture - Final Urine Klebsiella Pneumoniae 06/13/21 10:16 Blood Culture - Preliminary Blood - Venous - Lab Draw 06/13/21 10:10 Blood Culture - Preliminary Blood - Venous Med Orders - Current: Current Medications Acetaminophen (Acetaminophen 325 Mg Tab) 650 mg PO Q4H PRN PRN Reason: Pain (Mild 1-3)/fever Last Admin: 06/16/21 10:15 Dose: 650 mg Documented by: Acetaminophen (Acetaminophen 650 Mg Supp) 650 mg RECTAL Q4H PRN PRN Reason: Fever Last Admin: 06/12/21 18:39 Dose: 650 mg Documented by: Aspirin (Aspirin 81 Mg Tab.Ec) 81 mg PO DAILY [facility] Last Admin: 06/16/21 09:31 Dose: 81 mg Documented by: Docusate Sodium (Docusate Sodium 100 Mg Cap) 100 mg PO Q12H PRN PRN Reason: Constipation Lactated Ringer's (Ringers, Lactated) 1,000 mls @ 75 mls/hr IV ASDIRECTED [facility] Last Admin: 06/16/21 09:29 Dose: 75 mls/hr Documented by: Ibuprofen (Ibuprofen 600 Mg Tab) 600 mg PO Q6H PRN PRN Reason: Pain/Fever Last Admin: 06/14/21 04:27 Dose: 600 mg Documented by: Lorazepam (Lorazepam 2 Mg/Ml Sdv) 0.5 mg IVPUSH BID PRN PRN Reason: Anxiety Last Admin: 06/15/21 12:20 Dose: 0.5 mg Documented by: Ondansetron HCl (Ondansetron 4 Mg Tab.Dis) 4 mg PO Q4H PRN PRN Reason: nausea, able to take PO Potassium Chloride (Potassium Chloride 20 Meq Tab.Er) 20 meq PO DAILY [facility] Last Admin: 06/16/21 09:31 Dose: 20 meq Documented by: Sodium Chloride (Sodium Chloride 0.9% 10 Ml Syringe) 10 ml FLUSH ASDIRECTED PRN PRN Reason: Keep Vein Open Last Admin: 06/12/21 15:46 Dose: 10 ml Documented by: Temazepam (Temazepam 7.5 Mg Cap) 7.5 mg PO BEDTIME PRN PRN Reason: Sleep Tramadol HCl (Tramadol 50 Mg Tab) 50 mg PO Q6H PRN PRN Reason: Pain Last Admin: 06/14/21 18:48 Dose: 50 mg Documented by: Trimethoprim/Sulfamethoxazole (Sulfamethoxazole/Trimethoprim 800-160 Mg Tab) 1 tab PO BID [facility] Last Admin: 06/16/21 09:31 Dose: 1 tab Documented by: Discontinued Medications Aspirin (Aspirin 325 Mg Tab.Ec) 325 mg PO ONETIME ONE Stop: 06/12/21 22:46 Last Admin: 06/12/21 23:23 Dose: 325 mg Documented by: Clopidogrel Bisulfate (Clopidogrel 75 Mg Tab) 300 mg PO ONETIME ONE Stop: 06/12/21 22:46 Last Admin: 06/12/21 23:23 Dose: 300 mg Documented by: Docusate Sodium (Docusate Sodium 100 Mg Cap) 100 mg PO BID [facility] Last Admin: 06/14/21 08:54 Dose: Not Given Documented by: Enoxaparin Sodium (Enoxaparin 40 Mg/0.4 Ml Syringe) 40 mg SUBCUT DAILY [facility] Last Admin: 06/15/21 08:05 Dose: 40 mg Documented by: Famotidine (Famotidine 20 Mg/2 Ml Sdv) 20 mg IVPUSH BID [facility] Last Admin: 06/14/21 08:23 Dose: 20 mg Documented by: Furosemide (Furosemide 20 Mg Tab) 20 mg PO DAILY PRN PRN Reason: Edema Furosemide (Furosemide 40 Mg/4 Ml Vial) 40 mg IVPUSH TID [facility] Last Admin: 06/13/21 08:37 Dose: 40 mg Documented by: Furosemide (Furosemide 20 Mg/2 Ml Vial) 20 mg IVPUSH DAILY [facility] Last Admin: 06/15/21 08:04 Dose: 20 mg Documented by: Heparin Sodium (Porcine) (Heparin Sodium 5,000 Units/Ml Vial) 5,000 units SUBCUT Q8H [facility] Last Admin: 06/12/21 18:38 Dose: 5,000 units Documented by: Heparin Sodium (Porcine) (Heparin Sodium 5,000 Units/Ml Vial) 4,000 units IVPUSH ONETIME ONE Stop: 06/12/21 23:21 Last Admin: 06/13/21 00:15 Dose: 4,000 units Documented by: Sodium Chloride (Normal Saline) 1,000 mls @ 999 mls/hr IV ONETIME ONE; Protocol Stop: 06/12/21 16:28 Last Admin: 06/12/21 15:46 Dose: 999 mls/hr Documented by: Ceftriaxone Sodium 2 gm/ (Sodium Chloride) 100 mls @ 200 mls/hr IV ONETIME ONE Stop: 06/12/21 16:52 Last Admin: 06/12/21 16:28 Dose: 200 mls/hr Documented by: Ceftriaxone Sodium 2 gm/ (Sodium Chloride) 100 mls @ 200 mls/hr IV Q24H [facility] Vancomycin HCl 2 gm/ Sodium (Chloride) 500 mls @ 250 mls/hr IV ONETIME ONE Stop: 06/12/21 22:59 Last Admin: 06/12/21 22:01 Dose: 250 mls/hr Documented by: Vancomycin HCl 1.25 gm/ Sodium (Chloride) 250 mls @ 250 mls/hr IV Q12H [facility] Heparin Sodium/Dextrose (Heparin 25,000 Units In D5w 500 Ml) 25,000 units in 500 mls @ 20 mls/hr IV TITRATE [facility]; Protocol Last Titration: 06/14/21 04:08 Dose: 4.8 mls/hr Documented by: Piperacillin Sod/Tazobactam (Sod 3.375 gm/ Sodium Chloride) 100 mls @ 25 mls/hr IV Q8H [facility] Fluconazole/Sodium Chloride (200 mg/ Premix) 100 mls @ 100 mls/hr IV Q24H [facility] Last Admin: 06/15/21 08:04 Dose: 100 mls/hr Documented by: Piperacillin Sod/Tazobactam (Sod 4.5 gm/ Sodium Chloride) 100 mls @ 200 mls/hr IV ONETIME ONE Stop: 06/13/21 08:29 Last Admin: 06/13/21 08:37 Dose: 200 mls/hr Documented by: Piperacillin Sod/Tazobactam (Sod 4.5 gm/ Sodium Chloride) 100 mls @ 25 mls/hr IV Q8H [facility] Last Admin: 06/15/21 15:19 Dose: 25 mls/hr Documented by: Vancomycin HCl 1 gm/Vancomycin HCl 250 mg/ Sodium Chloride 250 mls @ 250 mls/hr IV Q12H [facility] Last Admin: 06/14/21 20:51 Dose: 250 mls/hr Documented by: Magnesium Sulfate 2 gm/ Premix 50 mls @ 25 mls/hr IV ONETIME ONE Stop: 06/13/21 11:01 Last Admin: 06/13/21 09:52 Dose: 25 mls/hr Documented by: Potassium Chloride 10 meq/ (Premix) 100 mls @ 100 mls/hr IV ONETIME ONE Stop: 06/13/21 10:27 Last Admin: 06/13/21 11:29 Dose: Not Given Documented by: Potassium Chloride 10 meq/ (Premix) 100 mls @ 100 mls/hr IV ONETIME ONE Stop: 06/13/21 11:59 Potassium Chloride 10 meq/ (Premix) 100 mls @ 100 mls/hr IV ONETIME ONE Stop: 06/13/21 13:59 Last Admin: 06/13/21 12:19 Dose: 100 mls/hr Documented by: Sodium Chloride (Normal Saline) 150 mls @ 50 mls/hr IV ASDIRECTED [facility] Last Admin: 06/13/21 12:19 Dose: 50 mls/hr Documented by: Magnesium Sulfate 4 gm/ Premix 50 mls @ 12.5 mls/hr IV ONETIME ONE Stop: 06/14/21 13:47 Last Admin: 06/14/21 10:28 Dose: 12.5 mls/hr Documented by: Albumin Human (Flexbumin 25%) 12.5 gm in 50 mls @ 100 mls/hr IV ONETIME ONE Stop: 06/15/21 09:20 Last Admin: 06/15/21 09:40 Dose: 80 mls/hr Documented by: Albumin Human (Flexbumin 25%) 12.5 gm in 50 mls @ 100 mls/hr IV ONETIME ONE Stop: 06/15/21 16:29 Last Admin: 06/15/21 15:12 Dose: 100 mls/hr Documented by: Lactated Ringer's (Ringers, Lactated) 1,000 mls @ 75 mls/hr IV ASDIRECTED [facility] Last Admin: 06/15/21 14:56 Dose: 75 mls/hr Documented by: Magnesium Sulfate 2 gm/ Premix 50 mls @ 25 mls/hr IV ONETIME ONE Stop: 06/16/21 11:04 Last Admin: 06/16/21 09:29 Dose: 25 mls/hr Documented by: Magnesium Oxide (Magnesium Oxide 400 Mg Tab) 400 mg PO BID [facility] Last Admin: 06/14/21 08:23 Dose: 400 mg Documented by: Metoprolol Succinate (Metoprolol Succinate 50 Mg Tab.Er) 50 mg PO DAILY [facility] Last Admin: 06/13/21 08:38 Dose: 50 mg Documented by: Multi-Ingred Cream/Lotion/Oil/Oint (Zinc Oxide 20% Oint 28.35 Gm Tube) 1 gm TOP Q1H [facility] Last Admin: 06/13/21 12:04 Dose: Not Given Documented by: Multi-Ingred Cream/Lotion/Oil/Oint (Zinc Oxide 20% Oint 28.35 Gm Tube) 1 gm TOP DAILY [facility] Stop: 06/14/21 09:01 Last Admin: 06/14/21 08:24 Dose: 1 gm Documented by: Neomycin/Polymyxin/Bacitracin (Bacitracin/Neomycin/Polymyxin B Oint 15 Gm Tube) 0 gm TOP BID [facility] Last Admin: 06/16/21 11:50 Dose: Not Given Documented by: Oxycodone HCl (Oxycodone 5 Mg Tab) 5 mg PO Q6H PRN PRN Reason: Pain Pharmacy Consult (Pharmacy Consult Order) 1 each .XX ASDIRECTED [facility] Polyethylene Glycol (Polyethylene Glycol 3350 Powder 17 Gm Packet) 17 gm PO DAILY [facility] Last Admin: 06/14/21 08:55 Dose: Not Given Documented by: Potassium Chloride (Potassium Chloride 20 Meq Tab.Er) 40 meq PO ONETIME ONE Stop: 06/13/21 09:29 Last Admin: 06/13/21 10:37 Dose: 40 meq Documented by: Potassium Chloride (Potassium Chloride 20 Meq Tab.Er) 20 meq PO ONETIME ONE Stop: 06/14/21 09:36 Last Admin: 06/14/21 10:28 Dose: 20 meq Documented by: Potassium Chloride (Potassium Chloride 20 Meq Tab.Er) 20 meq PO ONETIME ONE Stop: 06/15/21 17:01 Last Admin: 06/15/21 18:30 Dose: 20 meq Documented by: Vancomycin HCl (Pharmacy To Dose - Vancomycin) 1 dose .XX ASDIRECTED [facility] Vancomycin HCl (Vancomycin 1 Gm Sdv) Confirm Administered Dose 2 gm .ROUTE .STK- MED ONE Stop: 06/12/21 21:43 Last Admin: 06/12/21 21:55 Dose: Not Given Documented by: - Exam Quality Assessment: No: Supplemental Oxygen Urinary Catheter Total Time: 1Days 23Hours General: Alert HEENT: Pupils Equal, Mucous Membr. Moist/[place] Neck: Supple Lungs: Clear to Auscultation, Normal Respiratory Effort Cardiovascular: Regular Rate, Regular Rhythm, Murmurs (2/6 5 ICS) GI/Abdominal Exam: Normal Bowel Sounds, Soft, Non-Tender, No Organomegaly, No Distention Extremities: Normal Inspection, Pedal Edema, Other (Unna boots) Skin: Warm, Dry, Intact Psy/Mental Status: Alert, Normal Affect, Normal Mood - Patient Data Lab Results Last 24 hrs: Laboratory Results - last 24 hr 06/16/21 06/16/21 Range/Units 06:16 06:16 WBC 5.59 (3.98-10.04) K/mm3 RBC 4.04 (3.98-5.22) M/mm3 Hgb 12.5 (11.2-15.7) gm/dl Hct 37.3 (34.1-44.9) % MCV 92.3 (79.4-94.8) fl MCH 30.9 (25.6-32.2) pg MCHC 33.5 (32.2-35.5) g/dl RDW Std Deviation 47.9 H (36.4-46.3) fL Plt Count 81 L (182-369) K/mm3 MPV 11.1 (9.4-12.3) fl Neut % (Auto) 56.1 (34.0-71.1) % Lymph % (Auto) 33.1 (19.3-51.7) % Davis % (Auto) 8.6 (4.7-12.5) % Eos % (Auto) 1.4 (0.7-5.8) Baso % (Auto) 0.4 (0.1-1.2) % Neut # (Auto) 3.14 (1.56-6.13) K/mm3 Lymph # (Auto) 1.85 (1.18-3.74) K/mm3 Davis # (Auto) 0.48 H (0.24-0.36) K/mm3 Eos # (Auto) 0.08 (0.04-0.36) K/mm3 Baso # (Auto) 0.02 (0.01-0.08) K/mm3 Manual Slide Review Abnormal smear Sodium 144 (136-145) mEq/L Potassium 3.5 (3.5-5.1) mEq/L Chloride 108 H (98-107) mEq/L Carbon Dioxide 26 (21-32) mEq/L Anion Gap 13.5 (5-15) BUN 47 H (7-18) mg/dL Creatinine 1.7 H (0.55-1.02) mg/dL Est Cr Clr Drug Dosing 26.95 mL/min Estimated GFR (MDRD) 29 (>60) mL/min BUN/Creatinine Ratio 27.6 H (14-18) Glucose 78 (70-99) mg/dL Calcium 8.6 (8.5-10.1) mg/dL Magnesium 1.7 L (1.8-2.4) mg/dL Total Bilirubin 1.7 H (0.2-1.0) mg/dL AST 68 H (15-37) U/L ALT 64 H (14-59) U/L Alkaline Phosphatase 241 H (46-116) U/L Total Protein 5.0 L (6.4-8.2) g/dl Albumin 2.2 L (3.4-5.0) g/dl Globulin 2.8 gm/dL Albumin/Globulin Ratio 0.8 L (1-2) Result Diagrams: 06/16/21 06:16 06/16/21 06:16 Leroy Results Last 24 hrs: Microbiology 06/12/21 15:33 Urine Culture - Final Urine Klebsiella Pneumoniae 06/13/21 10:16 Blood Culture - Preliminary Blood - Venous - Lab Draw 06/13/21 10:10 Blood Culture - Preliminary Blood - Venous Sepsis Event Note - Evaluation Sepsis Screening Result: No Definite Risk - Focused Exam Vital Signs: Vital Signs Temp Pulse Resp BP Pulse Ox 06/16/21 11:22 98.2 F 72 16 138/48 L 92 L 06/16/21 07:57 97.9 F 86 14 140/65 90 L 06/16/21 03:07 97.9 F 69 17 130/87 92 L - Problem List & Annotations (1) Traumatic arthropathy, right hand SNOMED Code(s): 821695886, 243840147 Code(s): M12.541 - TRAUMATIC ARTHROPATHY, RIGHT HAND Status: Acute Cu rrent Visit: Yes (2) Acute kidney injury SNOMED Code(s): 26304691, 33274399 Code(s): N17.9 - ACUTE KIDNEY FAILURE, UNSPECIFIED Status: Acute Current Visit: Yes (3) Cellulitis of both lower extremities SNOMED Code(s): 695656485 Code(s): L03.115 - CELLULITIS OF RIGHT LOWER LIMB; L03.116 - CELLULITIS OF LEFT LOWER LIMB Status: Acute Current Visit: Yes (4) Dependent edema SNOMED Code(s): 005097587 Code(s): R60.9 - EDEMA, UNSPECIFIED Status: Acute Current Visit: Yes (5) Fall at home SNOMED Code(s): 82756398 Code(s): W19.XXXA - UNSPECIFIED FALL, INITIAL ENCOUNTER; Y92.009 - UNSP PLACE IN UNSP NON-INSTITUT (PRIVATE) RESIDENCE PLACE Status: Acute Current Visit: No (6) Hypokalemia SNOMED Code(s): 63717385 Code(s): E87.6 - HYPOKALEMIA Status: Acute Current Visit: Yes (7) Hypomagnesemia SNOMED Code(s): 736823470 Code(s): E83.42 - HYPOMAGNESEMIA Status: Acute Current Visit: Yes (8) UTI (urinary tract infection) SNOMED Code(s): 17738095 Code(s): N39.0 - URINARY TRACT INFECTION, SITE NOT SPECIFIED Status: Acute Current Visit: Yes Qualifiers: Urinary tract infection type: site unspecified Hematuria presence: with hematuria Qualified Code(s): N39.0 - Urinary tract infection, site not specified; R31.9 - Hematuria, unspecified (9) Elevated CK SNOMED Code(s): 593014958 Code(s): R74.8 - ABNORMAL LEVELS OF OTHER SERUM ENZYMES Status: Resolved Current Visit: Yes - Problem List Review Problem List Initiated/Reviewed/Updated: Yes - My Orders Last 24 Hours: My Active Orders 06/15/21 19:02 Patient Status [ADT] Routine 06/15/21 21:00 Sulfamethoxazole/Trimethoprim [Septra DS] 1 tab PO BID 06/16/21 09:03 Consult to Speech Language Pathology [CAREER SERVICES DIRECTOR Evaluation and Treatment] [CONS] Routine 06/16/21 09:15 Lactated Ringers [Ringers, Lactated] 1,000 ml IV ASDIRECTED 06/16/21 09:34 VTE Mechanical Contraindications [AST] Click to Edit VTE Pharmacological Contraindications [AST] Click to Edit - Plan Plan:: 1. sepsis without shock-elevated white count - resolved. 06/13 cont with chills, fevers, and has mrsa positive nasal swab. we will do a more broader coverage. Zosyn, vanc and we will also add fluconazole due to the severalty of a pityriasis versicolor and appearance on genital rash with satellite lesions -Fevers have resolved -White count now normal -Continue Zosyn, -Finished fluconazole -Urine culture positive for Klebsiella pneumoniae pending sensitivities 2. UTI acute-history of incontinence, takes fesoterodine which is now held 06/13 covered with antibiotics -Blood cultures negative -Urine culture: Klebsiella pneumonia - multi-sensitive -Switched to 3. acute CHF exacerbation -Pulmonary congestion on bilateral cxr, bilateral noted on chest x-ray, 1 L of fluids was given in the ER History of questionable CHF, when CPK returns may need to alter fluids and diuresis. -Lab work suggest mild dehydration with a BUN of 47 and a creatinine of 1.5. -Lasix on hold -Start IVF and follow closely 4. Elevated troponin-likely secondary to troponin leak, pending echo which will be able to be done till Tuesday, telemetry will continue, EKG which was not done in the ER will be ordered now, and repeat troponin in 6 hours. 06/13 increased and heparin started, asa, plavix and now plvix has been held, cont of heparin, cardiology did not feel they were a surgical canidate due to the sepsis. family was realistic about keeping her here and medically treaing. Troponin now coming down -Plt now 80,000 -Stopped Lovenox 5. Nausea and vomiting-will cover with Zofran 06/13 resolved, poor appetite 6. Elevated LFT-concern that it may be associated with rhabdomyolysis with pending CPK, or secondary to CHF exacerbation with BNP pending, pending overall work-up. 06/13 likely was due to chf exacerbation nad volume overload, should resolve over next few days -Total bilirubin increased to 2.3 and albumin decreased to 1.8. Enzymes improved. -Concern Diflucan could cause worsening of LFTs. -Patient received last day of Diflucan today. -Give albumin to hopefully improve mobilization of fluid from third space 7. Thrombocytopenia -likely secondary to sepsis and chronic illness -Stop Lovenox -Continue aspirin at this time 8. Hypertension-continue metoprolol. Stabilized 9. Asthma-asymptomatic, will add as needed albuterol if necessary 10. Chronic constipation-stop Colace and MiraLAX because of current diarrhea -Patient is having loose and watery stools. Review of her old chart shows that it is likely chronic now. Will stop her oral magnesium and treat with IV magnesium while in the hospital. Stop Colace and MiraLAX. 11. Rhabdo - resolved, asked for cpk but wrong lab ordered and repeat has been ordered now, appearing it will be elevated. Due to the severity of the chf, we will diurese and repeat labs in am and no additional IV fluids at this time, She received 1 liter in er. Tellez in place 06/13/21 was mild elevated 1100 yesterday, she was given a liter but due to the severity of the chf exacerbation we held off any further fluids -CK has normalized -Renal function has worsened but likely secondary to prerenal disease -Continue to monitor. 12. metabolic encephalopathy 06/13 multifactorial- possible baseline dementia, due to bacteremia, hypoxia -Waxing and waning consistent with dementia and possible delirium on dementia 13. decubitus bilateral lower extremity 06/13/21 PT called for wound care -Antibiotic ointment and Rolo wrap's twice daily -Continue Zosyn until culture results on urine and then switch to oral medic ations 14 NSTEMI- heparin, plavix, asa started when troponin increase. family is realistic and no transfer will be done 06/13/21 troponin decreasing, likely this is all secondary to demand ischemia y et no stress test, cardiology hx of echo done. Echo not available until tuesday. -Continue aspirin -Heparin stopped -Likely a type II FL secondary to sepsis 15. pityriasis versicolor- and generalized fungal infection-fluconazole finished 16. anxiety -ativan 0.5 prn bid added IV 17. Chronic hypomagnesemia -Stop oral magnesium while hospitalized secondary to diarrhea -Supplement as needed ppx Unna boot full code
[2021-06-16] MEDS: Nystatin Topical Powder 15 GM Bottle TOP SCH ×2 (17:15→20:24)
[2021-06-17] MEDS ORDERED: Magnesium Sulfate/Water 4 GM in Premix Bag 1 BAG IV ONE (08:35)
--- NOTE | 2021-06-17 08:48 | PCM.PN ---
- General Info Date of Service: 06/17/21 Admission Dx/Problem (Free Text): Admission Diagnosis/Problem Admission Diagnosis/Problem Sepsis Subjective Update: Patient states she is feeling better, but she is much more upset with her care today. This is likely a good sign because she shows less confusion, but she still gets confused on what is going on. She does complain of some lower extremity discomfort especially along the ulcerations of her heels and feet. Functional Status: Reports: Pain Controlled - Review of Systems General: Reports: No Symptoms. Denies: Fever HEENT: Reports: No Symptoms Pulmonary: Reports: No Symptoms Cardiovascular: Reports: No Symptoms Skin: Reports: Other (As above) - Patient Data Vitals - Most Recent: Last Vital Signs Temp 98.2 F 06/17/21 07:59 Pulse 90 06/17/21 07:59 Resp 16 06/17/21 07:59 BP 154/78 H 06/17/21 07:59 Pulse Ox 91 L 06/17/21 07:59 Weight - Most Recent: 235 lb 9.6 oz I&O - Last 24 Hours: Intake & Output 06/16/21 06/17/21 06/17/21 22:59 06:59 14:59 Intake Total 1470 1079 Output Total 375 500 Balance 1095 579 Lab Results Last 24 Hours: Laboratory Results - last 24 hr 06/17/21 06/17/21 Range/Units 06:27 06:27 WBC 5.50 (3.98-10.04) K/mm3 RBC 3.92 L (3.98-5.22) M/mm3 Hgb 11.8 (11.2-15.7) gm/dl Hct 35.8 (34.1-44.9) % MCV 91.3 (79.4-94.8) fl MCH 30.1 (25.6-32.2) pg MCHC 33.0 (32.2-35.5) g/dl RDW Std Deviation 47.7 H (36.4-46.3) fL Plt Count 85 L (182-369) K/mm3 MPV 11.3 (9.4-12.3) fl Neut % (Auto) 44.9 (34.0-71.1) % Lymph % (Auto) 43.8 (19.3-51.7) % Converse % (Auto) 9.8 (4.7-12.5) % Eos % (Auto) 1.1 (0.7-5.8) Baso % (Auto) 0.4 (0.1-1.2) % Neut # (Auto) 2.47 (1.56-6.13) K/mm3 Lymph # (Auto) 2.41 (1.18-3.74) K/mm3 [place] # (Auto) 0.54 H (0.24-0.36) K/mm3 Eos # (Auto) 0.06 (0.04-0.36) K/mm3 Baso # (Auto) 0.02 (0.01-0.08) K/mm3 Manual Slide Review Abnormal smear Sodium 140 (136-145) mEq/L Potassium 3.7 (3.5-5.1) mEq/L Chloride 105 (98-107) mEq/L Carbon Dioxide 27 (21-32) mEq/L Anion Gap 11.7 (5-15) BUN 41 H (7-18) mg/dL Creatinine 1.6 H (0.55-1.02) mg/dL Est Cr Clr Drug Dosing 25.43 mL/min Estimated GFR (MDRD) 31 (>60) mL/min BUN/Creatinine Ratio 25.6 H (14-18) Glucose 97 (70-99) mg/dL Calcium 8.9 (8.5-10.1) mg/dL Magnesium 1.7 L (1.8-2.4) mg/dL Total Bilirubin 1.0 (0.2-1.0) mg/dL AST 54 H (15-37) U/L ALT 58 (14-59) U/L Alkaline Phosphatase 248 H (46-116) U/L Total Protein 5.2 L (6.4-8.2) g/dl Albumin 2.3 L (3.4-5.0) g/dl Globulin 2.9 gm/dL Albumin/Globulin Ratio 0.8 L (1-2) Med Orders - Current: Current Medications Acetaminophen (Acetaminophen 325 Mg Tab) 650 mg PO Q4H PRN PRN Reason: Pain (Mild 1-3)/fever Last Admin: 06/16/21 20:47 Dose: 650 mg Documented by: Acetaminophen (Acetaminophen 650 Mg Supp) 650 mg RECTAL Q4H PRN PRN Reason: Fever Last Admin: 06/12/21 18:39 Dose: 650 mg Documented by: Aspirin (Aspirin 81 Mg Tab.Ec) 81 mg PO DAILY [facility] Last Admin: 06/16/21 09:31 Dose: 81 mg Documented by: Docusate Sodium (Docusate Sodium 100 Mg Cap) 100 mg PO Q12H PRN PRN Reason: Constipation Lactated Ringer's (Ringers, Lactated) 1,000 mls @ 75 mls/hr IV ASDIRECTED [facility] Last Admin: 06/16/21 23:04 Dose: 75 mls/hr Documented by: Magnesium Sulfate 4 gm/ Premix 50 mls @ 12.5 mls/hr IV ONETIME ONE Stop: 06/17/21 12:34 Ibuprofen (Ibuprofen 600 Mg Tab) 600 mg PO Q6H PRN PRN Reason: Pain/Fever Last Admin: 06/14/21 04:27 Dose: 600 mg Documented by: Lorazepam (Lorazepam 2 Mg/Ml Sdv) 0.5 mg IVPUSH BID PRN PRN Reason: Anxiety Last Admin: 06/15/21 12:20 Dose: 0.5 mg Documented by: Nystatin (Nystatin Topical Powder 15 Gm Bottle) 0 gm TOP QID [facility] Last Admin: 06/16/21 20:24 Dose: 1 applic Documented by: Ondansetron HCl (Ondansetron 4 Mg Tab.Dis) 4 mg PO Q4H PRN PRN Reason: nausea, able to take PO Potassium Chloride (Potassium Chloride 20 Meq Tab.Er) 20 meq PO DAILY [facility] Last Admin: 06/16/21 09:31 Dose: 20 meq Documented by: Sodium Chloride (Sodium Chloride 0.9% 10 Ml Syringe) 10 ml FLUSH ASDIRECTED PRN PRN Reason: Keep Vein Open Last Admin: 06/12/21 15:46 Dose: 10 ml Documented by: Temazepam (Temazepam 7.5 Mg Cap) 7.5 mg PO BEDTIME PRN PRN Reason: Sleep Tramadol HCl (Tramadol 50 Mg Tab) 50 mg PO Q6H PRN PRN Reason: Pain Last Admin: 06/14/21 18:48 Dose: 50 mg Documented by: Trimethoprim/Sulfamethoxazole (Sulfamethoxazole/Trimethoprim 800-160 Mg Tab) 1 tab PO BID [facility] Last Admin: 06/16/21 20:23 Dose: 1 tab Documented by: Discontinued Medications Aspirin (Aspirin 325 Mg Tab.Ec) 325 mg PO ONETIME ONE Stop: 06/12/21 22:46 Last Admin: 06/12/21 23:23 Dose: 325 mg Documented by: Clopidogrel Bisulfate (Clopidogrel 75 Mg Tab) 300 mg PO ONETIME ONE Stop: 06/12/21 22:46 Last Admin: 06/12/21 23:23 Dose: 300 mg Documented by: Docusate Sodium (Docusate Sodium 100 Mg Cap) 100 mg PO BID [facility] Last Admin: 06/14/21 08:54 Dose: Not Given Documented by: Enoxaparin Sodium (Enoxaparin 40 Mg/0.4 Ml Syringe) 40 mg SUBCUT DAILY [facility] Last Admin: 06/15/21 08:05 Dose: 40 mg Documented by: Famotidine (Famotidine 20 Mg/2 Ml Sdv) 20 mg IVPUSH BID [facility] Last Admin: 06/14/21 08:23 Dose: 20 mg Documented by: Furosemide (Furosemide 20 Mg Tab) 20 mg PO DAILY PRN PRN Reason: Edema Furosemide (Furosemide 40 Mg/4 Ml Vial) 40 mg IVPUSH TID [facility] Last Admin: 06/13/21 08:37 Dose: 40 mg Documented by: Furosemide (Furosemide 20 Mg/2 Ml Vial) 20 mg IVPUSH DAILY [facility] Last Admin: 06/15/21 08:04 Dose: 20 mg Documented by: Heparin Sodium (Porcine) (Heparin Sodium 5,000 Units/Ml Vial) 5,000 units SUBCUT Q8H [facility] Last Admin: 06/12/21 18:38 Dose: 5,000 units Documented by: Heparin Sodium (Porcine) (Heparin Sodium 5,000 Units/Ml Vial) 4,000 units IVPUSH ONETIME ONE Stop: 06/12/21 23:21 Last Admin: 06/13/21 00:15 Dose: 4,000 units Documented by: Sodium Chloride (Normal Saline) 1,000 mls @ 999 mls/hr IV ONETIME ONE; Protocol Stop: 06/12/21 16:28 Last Admin: 06/12/21 15:46 Dose: 999 mls/hr Documented by: Ceftriaxone Sodium 2 gm/ (Sodium Chloride) 100 mls @ 200 mls/hr IV ONETIME ONE Stop: 06/12/21 16:52 Last Admin: 06/12/21 16:28 Dose: 200 mls/hr Documented by: Ceftriaxone Sodium 2 gm/ (Sodium Chloride) 100 mls @ 200 mls/hr IV Q24H [facility] Vancomycin HCl 2 gm/ Sodium (Chloride) 500 mls @ 250 mls/hr IV ONETIME ONE Stop: 06/12/21 22:59 Last Admin: 06/12/21 22:01 Dose: 250 mls/hr Documented by: Vancomycin HCl 1.25 gm/ Sodium (Chloride) 250 mls @ 250 mls/hr IV Q12H [facility] Heparin Sodium/Dextrose (Heparin 25,000 Units In D5w 500 Ml) 25,000 units in 500 mls @ 20 mls/hr IV TITRATE [facility]; Protocol Last Titration: 06/14/21 04:08 Dose: 4.8 mls/hr Documented by: Piperacillin Sod/Tazobactam (Sod 3.375 gm/ Sodium Chloride) 100 mls @ 25 mls/hr IV Q8H [facility] Fluconazole/Sodium Chloride (200 mg/ Premix) 100 mls @ 100 mls/hr IV Q24H [facility] Last Admin: 06/15/21 08:04 Dose: 100 mls/hr Documented by: Piperacillin Sod/Tazobactam (Sod 4.5 gm/ Sodium Chloride) 100 mls @ 200 mls/hr IV ONETIME ONE Stop: 06/13/21 08:29 Last Admin: 06/13/21 08:37 Dose: 200 mls/hr Documented by: Piperacillin Sod/Tazobactam (Sod 4.5 gm/ Sodium Chloride) 100 mls @ 25 mls/hr IV Q8H [facility] Last Admin: 06/15/21 15:19 Dose: 25 mls/hr Documented by: Vancomycin HCl 1 gm/Vancomycin HCl 250 mg/ Sodium Chloride 250 mls @ 250 mls/hr IV Q12H [facility] Last Admin: 06/14/21 20:51 Dose: 250 mls/hr Documented by: Magnesium Sulfate 2 gm/ Premix 50 mls @ 25 mls/hr IV ONETIME ONE Stop: 06/13/21 11:01 Last Admin: 06/13/21 09:52 Dose: 25 mls/hr Documented by: Potassium Chloride 10 meq/ (Premix) 100 mls @ 100 mls/hr IV ONETIME ONE Stop: 06/13/21 10:27 Last Admin: 06/13/21 11:29 Dose: Not Given Documented by: Potassium Chloride 10 meq/ (Premix) 100 mls @ 100 mls/hr IV ONETIME ONE Stop: 06/13/21 11:59 Potassium Chloride 10 meq/ (Premix) 100 mls @ 100 mls/hr IV ONETIME ONE Stop: 06/13/21 13:59 Last Admin: 06/13/21 12:19 Dose: 100 mls/hr Documented by: Sodium Chloride (Normal Saline) 150 mls @ 50 mls/hr IV ASDIRECTED [facility] Last Admin: 06/13/21 12:19 Dose: 50 mls/hr Documented by: Magnesium Sulfate 4 gm/ Premix 50 mls @ 12.5 mls/hr IV ONETIME ONE Stop: 06/14/21 13:47 Last Admin: 06/14/21 10:28 Dose: 12.5 mls/hr Documented by: Albumin Human (Flexbumin 25%) 12.5 gm in 50 mls @ 100 mls/hr IV ONETIME ONE Stop: 06/15/21 09:20 Last Admin: 06/15/21 09:40 Dose: 80 mls/hr Documented by: Albumin Human (Flexbumin 25%) 12.5 gm in 50 mls @ 100 mls/hr IV ONETIME ONE Stop: 06/15/21 16:29 Last Admin: 06/15/21 15:12 Dose: 100 mls/hr Documented by: Lactated Ringer's (Ringers, Lactated) 1,000 mls @ 75 mls/hr IV ASDIRECTED [facility] Last Admin: 06/15/21 14:56 Dose: 75 mls/hr Documented by: Magnesium Sulfate 2 gm/ Premix 50 mls @ 25 mls/hr IV ONETIME ONE Stop: 06/16/21 11:04 Last Admin: 06/16/21 09:29 Dose: 25 mls/hr Documented by: Magnesium Oxide (Magnesium Oxide 400 Mg Tab) 400 mg PO BID [facility] Last Admin: 06/14/21 08:23 Dose: 400 mg Documented by: Metoprolol Succinate (Metoprolol Succinate 50 Mg Tab.Er) 50 mg PO DAILY [facility] Last Admin: 06/13/21 08:38 Dose: 50 mg Documented by: Multi-Ingred Cream/Lotion/Oil/Oint (Zinc Oxide 20% Oint 28.35 Gm Tube) 1 gm TOP Q1H [facility] Last Admin: 06/13/21 12:04 Dose: Not Given Documented by: Multi-Ingred Cream/Lotion/Oil/Oint (Zinc Oxide 20% Oint 28.35 Gm Tube) 1 gm TOP DAILY [facility] Stop: 06/14/21 09:01 Last Admin: 06/14/21 08:24 Dose: 1 gm Documented by: Neomycin/Polymyxin/Bacitracin (Bacitracin/Neomycin/Polymyxin B Oint 15 Gm Tube) 0 gm TOP BID [facility] Last Admin: 06/16/21 11:50 Dose: Not Given Documented by: Oxycodone HCl (Oxycodone 5 Mg Tab) 5 mg PO Q6H PRN PRN Reason: Pain Pharmacy Consult (Pharmacy Consult Order) 1 each .XX ASDIRECTED [facility] Polyethylene Glycol (Polyethylene Glycol 3350 Powder 17 Gm Packet) 17 gm PO DAILY [facility] Last Admin: 06/14/21 08:55 Dose: Not Given Documented by: Potassium Chloride (Potassium Chloride 20 Meq Tab.Er) 40 meq PO ONETIME ONE Stop: 06/13/21 09:29 Last Admin: 06/13/21 10:37 Dose: 40 meq Documented by: Potassium Chloride (Potassium Chloride 20 Meq Tab.Er) 20 meq PO ONETIME ONE Stop: 06/14/21 09:36 Last Admin: 06/14/21 10:28 Dose: 20 meq Documented by: Potassium Chloride (Potassium Chloride 20 Meq Tab.Er) 20 meq PO ONETIME ONE Stop: 06/15/21 17:01 Last Admin: 06/15/21 18:30 Dose: 20 meq Documented by: Vancomycin HCl (Pharmacy To Dose - Vancomycin) 1 dose .XX ASDIRECTED [facility] Vancomycin HCl (Vancomycin 1 Gm Sdv) Confirm Administered Dose 2 gm .ROUTE .STK- MED ONE Stop: 06/12/21 21:43 Last Admin: 06/12/21 21:55 Dose: Not Given Documented by: - Exam Quality Assessment: No: Supplemental Oxygen Urinary Catheter Total Time: 1Days 23Hours General: Alert, Oriented HEENT: Pupils Equal, Mucous Membr. Moist/[place] Neck: Supple Lungs: Normal Respiratory Effort, Rales (Mild bibasilar) Cardiovascular: Regular Rate, Regular Rhythm GI/Abdominal Exam: Normal Bowel Sounds, Soft, No Distention Extremities: Pedal Edema, Redness (No significant change since admission), Other (Ulcerations along the heels and ankles. These appear more dry today than previous. Unna boot is removed and will be replaced shortly.) - Patient Data Lab Results Last 24 hrs: Laboratory Results - last 24 hr 06/17/21 06/17/21 Range/Units 06:27 06:27 WBC 5.50 (3.98-10.04) K/mm3 RBC 3.92 L (3.98-5.22) M/mm3 Hgb 11.8 (11.2-15.7) gm/dl Hct 35.8 (34.1-44.9) % MCV 91.3 (79.4-94.8) fl MCH 30.1 (25.6-32.2) pg MCHC 33.0 (32.2-35.5) g/dl RDW Std Deviation 47.7 H (36.4-46.3) fL Plt Count 85 L (182-369) K/mm3 MPV 11.3 (9.4-12.3) fl Neut % (Auto) 44.9 (34.0-71.1) % Lymph % (Auto) 43.8 (19.3-51.7) % Converse % (Auto) 9.8 (4.7-12.5) % Eos % (Auto) 1.1 (0.7-5.8) Baso % (Auto) 0.4 (0.1-1.2) % Neut # (Auto) 2.47 (1.56-6.13) K/mm3 Lymph # (Auto) 2.41 (1.18-3.74) K/mm3 [place] # (Auto) 0.54 H (0.24-0.36) K/mm3 Eos # (Auto) 0.06 (0.04-0.36) K/mm3 Baso # (Auto) 0.02 (0.01-0.08) K/mm3 Manual Slide Review Abnormal smear Sodium 140 (136-145) mEq/L Potassium 3.7 (3.5-5.1) mEq/L Chloride 105 (98-107) mEq/L Carbon Dioxide 27 (21-32) mEq/L Anion Gap 11.7 (5-15) BUN 41 H (7-18) mg/dL Creatinine 1.6 H (0.55-1.02) mg/dL Est Cr Clr Drug Dosing 25.43 mL/min Estimated GFR (MDRD) 31 (>60) mL/min BUN/Creatinine Ratio 25.6 H (14-18) Glucose 97 (70-99) mg/dL Calcium 8.9 (8.5-10.1) mg/dL Magnesium 1.7 L (1.8-2.4) mg/dL Total Bilirubin 1.0 (0.2-1.0) mg/dL AST 54 H (15-37) U/L ALT 58 (14-59) U/L Alkaline Phosphatase 248 H (46-116) U/L Total Protein 5.2 L (6.4-8.2) g/dl Albumin 2.3 L (3.4-5.0) g/dl Globulin 2.9 gm/dL Albumin/Globulin Ratio 0.8 L (1-2) Result Diagrams: 06/17/21 06:27 06/17/21 06:27 Sepsis Event Note - Evaluation Sepsis Screening Result: No Definite Risk - Focused Exam Vital Signs: Vital Signs Temp Pulse Resp BP Pulse Ox 06/17/21 07:59 98.2 F 90 16 154/78 H 91 L 06/17/21 05:44 98.4 F 92 18 150/73 H 89 L 06/17/21 01:34 98.4 F 78 18 101/82 95 - Problem List & Annotations (1) Traumatic arthropathy, right hand SNOMED Code(s): 777518746, 604697414 Code(s): M12.541 - TRAUMATIC ARTHROPATHY, RIGHT HAND Status: Acute Current Visit: Yes (2) Acute kidney injury SNOMED Code(s): 28484552, 75015677 Code(s): N17.9 - ACUTE KIDNEY FAILURE, UNSPECIFIED Status: Acute Current Visit: Yes (3) Cellulitis of both lower extremities SNOMED Code(s): 118196463 Code(s): L03.115 - CELLULITIS OF RIGHT LOWER LIMB; L03.116 - CELLULITIS OF LEFT LOWER LIMB Status: Acute Current Visit: Yes (4) Dependent edema SNOMED Code(s): 256371708 Code(s): R60.9 - EDEMA, UNSPECIFIED Status: Acute Current Visit: Yes (5) Fall at home SNOMED Code(s): 64467390 Code(s): W19.XXXA - UNSPECIFIED FALL, INITIAL ENCOUNTER; Y92.009 - UNSP PLACE IN UNSP NON-INSTITUT (PRIVATE) RESIDENCE PLACE Status: Acute Current Visit: No (6) Hypokalemia SNOMED Code(s): 56997943 Code(s): E87.6 - HYPOKALEMIA Status: Acute Current Visit: Yes (7) Hypomagnesemia SNOMED Code(s): 385542982 Code(s): E83.42 - HYPOMAGNESEMIA Status: Acute Current Visit: Yes (8) UTI (urinary tract infection) SNOMED Code(s): 15114164 Code(s): N39.0 - URINARY TRACT INFECTION, SITE NOT SPECIFIED Status: Acute Current Visit: Yes Qualifiers: Urinary tract infection type: site unspecified Hematuria presence: with hematuria Qualified Code(s): N39.0 - Urinary tract infection, site not specified; R31.9 - Hematuria, unspecified (9) Elevated CK SNOMED Code(s): 071990160 Code(s): R74.8 - ABNORMAL LEVELS OF OTHER SERUM ENZYMES Status: Resolved Current Visit: Yes - Problem List Review Problem List Initiated/Reviewed/Updated: Yes - My Orders Last 24 Hours: My Active Orders 06/16/21 09:03 Consult to Speech Language Pathology [[employer] Evaluation and Treatment] [CONS] Routine 06/16/21 09:15 Lactated Ringers [Ringers, Lactated] 1,000 ml IV ASDIRECTED 06/16/21 09:34 VTE Mechanical Contraindications [AST] Click to Edit VTE Pharmacological Contraindications [AST] Click to Edit 06/16/21 17:00 Nystatin [Nystop] See Dose Instructions TOP QID 06/17/21 07:54 Abdomen Ltd [US] Routine 06/17/21 08:35 Magnesium Sulfate/Water [Magnesium Sulfate in Water 4 GM/50 ML] 4 gm Premix Bag 1 bag IV ONETIME - Plan Plan:: 1. sepsis without shock-elevated white count - resolved. 06/13 cont with chills, fevers, and has mrsa positive nasal swab. we will do a more broader coverage. Zosyn, vanc and we will also add fluconazole due to the severalty of a pityriasis versicolor and appearance on genital rash with satellite lesions -Fevers have resolved -White count now normal -Currently on Septra -Finished fluconazole -Urine culture positive for Klebsiella pneumoniae sensitive to Septra 2. UTI acute-history of incontinence, takes fesoterodine which is now held 06/13 covered with antibiotics -Blood cultures negative -Urine culture: Klebsiella pneumonia - multi-sensitive -Switched to Septra 3. acute CHF exacerbation-Pulmonary congestion on bilateral cxr, bilateral noted on chest x-ray, 1 L of fluids was given in the ER History of questionable CHF, when CPK returns may need to alter fluids and diuresis. -Echocardiogram: 1. Left ventricular ejection fraction, by visual estimation, is 60 to 65%. 2. Normal left ventricular systolic function. 3. Mild septal left ventricular hypertrophy. 4. Normal pattern of LV diastolic filling. 5. Mildly dilated left atrium. 6. Mildly dilated right atrium. 7. Mild mitral valve regurgitation. 8. Trace tricuspid valve regurgitation. 9. The right ventricular systolic pressure is probably normal. 10. No regional wall motion abnormalities -Lower extremity edema is most likely secondary to dependent edema -Kidney function slightly improved -Lasix on hold -Stop fluids 4. Elevated troponin-likely secondary to troponin leak, -Echocardiogram showed no wall motion abnormalities -Plt now 80,000 -Stopped Lovenox 5. Nausea and vomiting-resolved 6. Elevated LFT-improved: Concern that it may be associated with rhabdomyolysis with pending CPK, or secondary to CHF exacerbation with BNP pending, pending overall work-up. -Total bilirubin returned to normal of 1.0 and albumin improved to 2.3 enzymes improved. -Concern Diflucan could have caused worsening of LFTs. -Diflucan completed -Encouraged improved diet. Dietary consult 7. Thrombocytopenia -likely secondary to sepsis and chronic illness -Stop Lovenox -Continue aspirin at this time -Platelets slightly improved at 85,000 8. Hypertension-continue metoprolol. [place] 9. Asthma-asymptomatic, will add as needed albuterol if necessary 10. Chronic constipation-stop Colace and MiraLAX because of current diarrhea -Patient is having loose and watery stools. Review of her old chart shows that it is likely chronic now. Will stop her oral magnesium and treat with IV magnesium while in the hospital. Stop Colace and MiraLAX. 11. Rhabdo - resolved, asked for cpk but wrong lab ordered and repeat has been ordered now, appearing it will be elevated. Due to the severity of the chf, we will diurese and repeat labs in am and no additional IV fluids at this time, She received 1 liter in er. Tle[place] in place -CK has normalized -Renal function is improving -Continue to monitor. 12. metabolic encephalopathy -resolved -Mentation now is likely secondary to longstanding dementia -Placement pending 13. decubitus bilateral lower extremity -Physical therapy is doing daily dressing changes with Unna boots -Switched to Septra 14 NSTEMI- heparin, plavix, asa started when troponin increase. family is realistic and no transfer will be done -Continue aspirin -Heparin stopped secondary to thrombocytopenia -Likely a type II LA secondary to sepsis -No wall motion abnormalities 15. pityriasis versicolor- and generalized fungal infection-fluconazole finished 16. anxiety -ativan 0.5 prn bid added IV 17. Chronic hypomagnesemia -Stop oral magnesium while hospitalized secondary to diarrhea -Supplement as needed ppx Unna boot, aspirin; Lovenox/heparin contraindicated secondary to thrombocytopenia. Unna boot serves as compression device. full code Hospital stay greater than 96 hours secondary to placement issues, long weekend, slow resolution of sepsis and acute renal insufficiency.
--- NOTE | 2021-06-17 09:04 | US ---
Limited abdominal ultrasound: Multiple real-time images were obtained of the upper right abdomen. Comparison: Prior abdominal ultrasound in 07/01/19. Spleen appears within normal limits. Liver contains no focal parenchymal abnormality. Proximal aorta and inferior vena cava are patent. Large gallstone is noted within the gallbladder measuring 4.5 cm. No gallbladder wall thickening is appreciated. Common bile duct is dilated at 1.1 cm. Biliary duct dilatation is an interval change from previous exam. Right kidney is not completely evaluated as patient refused to finish the exam. No discrete hydronephrosis is seen. Main portal vein shows normal hepatopedal flow. Impression: 1. Large 4.5 cm gallstone with increased common bile duct dilatation at 1.1 cm. This biliary duct dilatation is an interval change from prior exam. 2. Right kidney is not well seen as patient did not cooperate completely for the exam. 3. Other portions of the right upper quadrant abdominal ultrasound appear within normal limits. Diagnostic code #3
[2021-06-17] MEDS: Sulfamethoxazole/Trimethoprim 800-160 MG Tab PO SCH ×3 (09:43→20:08)
[2021-06-17] MEDS: Potassium Chloride 20 MEQ Tab.ER PO SCH ×2 (09:43→15:07)
[2021-06-17] MEDS: Aspirin 81 MG Tab.EC PO SCH ×2 (09:43→15:07)
[2021-06-17] MEDS: Nystatin Topical Powder 15 GM Bottle TOP SCH ×4 (09:44→20:08)
[2021-06-18] MEDS: Nystatin Topical Powder 15 GM Bottle TOP SCH ×4 (09:01→20:08)
[2021-06-18] MEDS: Sulfamethoxazole/Trimethoprim 800-160 MG Tab PO SCH ×2 (09:01→20:08)
[2021-06-18] MEDS: Aspirin 81 MG Tab.EC PO SCH (09:01)
[2021-06-18] MEDS: Potassium Chloride 20 MEQ Tab.ER PO SCH (09:01)
[2021-06-18] MEDS ORDERED: Magnesium Sulfate/Water 2 GM in Premix Bag 1 BAG IV ONE (10:41)
[2021-06-18] MEDS: Magnesium Oxide 400 MG Tab PO SCH ×2 (10:49→20:08)
[2021-06-18] MEDS ORDERED: diphenhydrAMINE 50 MG/ML SDV IVPUSH PRN (14:00)
[2021-06-18] MEDS ORDERED: methylPREDNISolone Sodium Succinate 125 MG/2 ML SDV IVPUSH PRN (14:00)
[2021-06-18] MEDS ORDERED: Sodium Chloride 0.9% 10 ML Syringe FLUSH SCH (14:00)
[2021-06-18] MEDS ORDERED: EPINEPHrine 1 MG/ML SDV IM PRN (14:00)
[2021-06-18] MEDS ORDERED: Famotidine 20 MG/2 ML SDV IVPUSH PRN (14:00)
--- NOTE | 2021-06-18 15:31 | PCM.PN ---
- General Info Date of Service: 06/18/21 Admission Dx/Problem (Free Text): Admission Diagnosis/Problem Admission Diagnosis/Problem Sepsis Subjective Update: Patient is doing well, less confused, and appears stronger. Unfortunately, she was tested for COVID-19 due to screening before going to long-term care. That screening was positive, therefore she will be here for 10 days to isolate. Functional Status: Reports: Pain Controlled - Review of Systems General: Reports: No Symptoms HEENT: Reports: No Symptoms Pulmonary: Reports: No Symptoms Cardiovascular: Reports: No Symptoms - Patient Data Vitals - Most Recent: Last Vital Signs Temp 97.7 F 06/18/21 14:06 Pulse 92 06/18/21 15:17 Resp 14 06/18/21 14:06 BP 163/71 H 06/18/21 15:17 Pulse Ox 92 L 06/18/21 15:17 Weight - Most Recent: 228 lb 12.8 oz I&O - Last 24 Hours: Intake & Output 06/18/21 06/18/21 06/18/21 06:59 14:59 22:59 Intake Total 650 240 Balance 650 240 Lab Results Last 24 Hours: Laboratory Results - last 24 hr 06/18/21 06/18/21 Range/Units 04:26 10:20 Sodium 142 (136-145) mEq/L Potassium 3.8 (3.5-5.1) mEq/L Chloride 108 H (98-107) mEq/L Carbon Dioxide 28 (21-32) mEq/L Anion Gap 9.8 (5-15) BUN 33 H (7-18) mg/dL Creatinine 1.3 H (0.55-1.02) mg/dL Est Cr Clr Drug Dosing 31.29 mL/min Estimated GFR (MDRD) 40 (>60) mL/min BUN/Creatinine Ratio 25.4 H (14-18) Glucose 105 H (70-99) mg/dL Calcium 9.1 (8.5-10.1) mg/dL Magnesium 1.7 L (1.8-2.4) mg/dL Total Bilirubin 0.9 (0.2-1.0) mg/dL AST 43 H (15-37) U/L ALT 49 (14-59) U/L Alkaline Phosphatase 229 H (46-116) U/L Total Protein 5.1 L (6.4-8.2) g/dl Albumin 2.3 L (3.4-5.0) g/dl Globulin 2.8 gm/dL Albumin/Globulin Ratio 0.8 L (1-2) SARS-CoV-2 RNA ([facility]) Positive H (NEGATIVE) Leroy Results Last 24 Hours: Microbiology 06/12/21 16:00 Blood Culture - Final Blood - Venous - Lab Draw 06/12/21 15:50 Blood Culture - Final Blood - Venous Med Orders - Current: Current Medications Acetaminophen (Acetaminophen 325 Mg Tab) 650 mg PO Q4H PRN PRN Reason: Pain (Mild 1-3)/fever Last Admin: 06/16/21 20:47 Dose: 650 mg Documented by: Acetaminophen (Acetaminophen 650 Mg Supp) 650 mg RECTAL Q4H PRN PRN Reason: Fever Last Admin: 06/12/21 18:39 Dose: 650 mg Documented by: Aspirin (Aspirin 81 Mg Tab.Ec) 81 mg PO DAILY [facility] Last Admin: 06/18/21 09:01 Dose: 81 mg Documented by: Diphenhydramine HCl (Diphenhydramine 50 Mg/Ml Sdv) 50 mg IVPUSH ONETIME PRN PRN Reason: hypersensitivity reaction Stop: 06/18/21 20:00 Docusate Sodium (Docusate Sodium 100 Mg Cap) 100 mg PO Q12H PRN PRN Reason: Constipation Epinephrine HCl (Epinephrine 1 Mg/Ml Sdv) 0.3 mg IM ONETIME PRN PRN Reason: hypersensitivity reaction Stop: 06/18/21 20:00 Famotidine (Famotidine 20 Mg/2 Ml Sdv) 20 mg IVPUSH ONETIME PRN PRN Reason: hypersensitivity reaction Stop: 06/18/21 20:00 Ibuprofen (Ibuprofen 600 Mg Tab) 600 mg PO Q6H PRN PRN Reason: Pain/Fever Last Admin: 06/14/21 04:27 Dose: 600 mg Documented by: Lorazepam (Lorazepam 2 Mg/Ml Sdv) 0.5 mg IVPUSH BID PRN PRN Reason: Anxiety Last Admin: 06/15/21 12:20 Dose: 0.5 mg Documented by: Magnesium Oxide (Magnesium Oxide 400 Mg Tab) 400 mg PO BID [facility] Last Admin: 06/18/21 10:49 Dose: 400 mg Documented by: Methylprednisolone Sodium Succinate (Methylprednisolone Sodium Succinate 125 Mg/2 Ml Sdv) 125 mg IVPUSH ONETIME PRN PRN Reason: hypersensitivity reaction Stop: 06/18/21 20:00 Nystatin (Nystatin Topical Powder 15 Gm Bottle) 0 gm TOP QID [facility] Last Admin: 06/18/21 14:33 Dose: 15 applic Documented by: Ondansetron HCl (Ondansetron 4 Mg Tab.Dis) 4 mg PO Q4H PRN PRN Reason: nausea, able to take PO Potassium Chloride (Potassium Chloride 20 Meq Tab.Er) 20 meq PO DAILY [facility] Last Admin: 06/18/21 09:01 Dose: 20 meq Documented by: Sodium Chloride (Sodium Chloride 0.9% 10 Ml Syringe) 10 ml FLUSH ASDIRECTED PRN PRN Reason: Keep Vein Open Last Admin: 06/12/21 15:46 Dose: 10 ml Documented by: Sodium Chloride (Sodium Chloride 0.9% 10 Ml Syringe) 30 ml FLUSH ASDIRECTED [facility] Stop: 06/18/21 20:00 Temazepam (Temazepam 7.5 Mg Cap) 7.5 mg PO BEDTIME PRN PRN Reason: Sleep Tramadol HCl (Tramadol 50 Mg Tab) 50 mg PO Q6H PRN PRN Reason: Pain Last Admin: 06/14/21 18:48 Dose: 50 mg Documented by: Trimethoprim/Sulfamethoxazole (Sulfamethoxazole/Trimethoprim 800-160 Mg Tab) 1 tab PO BID [facility] Last Admin: 06/18/21 09:01 Dose: 1 tab Documented by: Discontinued Medications Aspirin (Aspirin 325 Mg Tab.Ec) 325 mg PO ONETIME ONE Stop: 06/12/21 22:46 Last Admin: 06/12/21 23:23 Dose: 325 mg Documented by: Clopidogrel Bisulfate (Clopidogrel 75 Mg Tab) 300 mg PO ONETIME ONE Stop: 06/12/21 22:46 Last Admin: 06/12/21 23:23 Dose: 300 mg Documented by: Docusate Sodium (Docusate Sodium 100 Mg Cap) 100 mg PO BID [facility] Last Admin: 06/14/21 08:54 Dose: Not Given Documented by: Enoxaparin Sodium (Enoxaparin 40 Mg/0.4 Ml Syringe) 40 mg SUBCUT DAILY [facility] Last Admin: 06/15/21 08:05 Dose: 40 mg Documented by: Famotidine (Famotidine 20 Mg/2 Ml Sdv) 20 mg IVPUSH BID [facility] Last Admin: 06/14/21 08:23 Dose: 20 mg Documented by: Furosemide (Furosemide 20 Mg Tab) 20 mg PO DAILY PRN PRN Reason: Edema Furosemide (Furosemide 40 Mg/4 Ml Vial) 40 mg IVPUSH TID [facility] Last Admin: 06/13/21 08:37 Dose: 40 mg Documented by: Furosemide (Furosemide 20 Mg/2 Ml Vial) 20 mg IVPUSH DAILY [facility] Last Admin: 06/15/21 08:04 Dose: 20 mg Documented by: Heparin Sodium (Porcine) (Heparin Sodium 5,000 Units/Ml Vial) 5,000 units SUBCUT Q8H [facility] Last Admin: 06/12/21 18:38 Dose: 5,000 units Documented by: Heparin Sodium (Porcine) (Heparin Sodium 5,000 Units/Ml Vial) 4,000 units IVPUSH ONETIME ONE Stop: 06/12/21 23:21 Last Admin: 06/13/21 00:15 Dose: 4,000 units Documented by: Sodium Chloride (Normal Saline) 1,000 mls @ 999 mls/hr IV ONETIME ONE; Protocol Stop: 06/12/21 16:28 Last Admin: 06/12/21 15:46 Dose: 999 mls/hr Documented by: Ceftriaxone Sodium 2 gm/ (Sodium Chloride) 100 mls @ 200 mls/hr IV ONETIME ONE Stop: 06/12/21 16:52 Last Admin: 06/12/21 16:28 Dose: 200 mls/hr Documented by: Ceftriaxone Sodium 2 gm/ (Sodium Chloride) 100 mls @ 200 mls/hr IV Q24H [facility] Vancomycin HCl 2 gm/ Sodium (Chloride) 500 mls @ 250 mls/hr IV ONETIME ONE Stop: 06/12/21 22:59 Last Admin: 06/12/21 22:01 Dose: 250 mls/hr Documented by: Vancomycin HCl 1.25 gm/ Sodium (Chloride) 250 mls @ 250 mls/hr IV Q12H [facility] Heparin Sodium/Dextrose (Heparin 25,000 Units In D5w 500 Ml) 25,000 units in 500 mls @ 20 mls/hr IV TITRATE [facility]; Protocol Last Titration: 06/14/21 04:08 Dose: 4.8 mls/hr Documented by: Piperacillin Sod/Tazobactam (Sod 3.375 gm/ Sodium Chloride) 100 mls @ 25 mls/hr IV Q8H [facility] Fluconazole/Sodium Chloride (200 mg/ Premix) 100 mls @ 100 mls/hr IV Q24H [facility] Last Admin: 06/15/21 08:04 Dose: 100 mls/hr Documented by: Piperacillin Sod/Tazobactam (Sod 4.5 gm/ Sodium Chloride) 100 mls @ 200 mls/hr IV ONETIME ONE Stop: 06/13/21 08:29 Last Admin: 06/13/21 08:37 Dose: 200 mls/hr Documented by: Piperacillin Sod/Tazobactam (Sod 4.5 gm/ Sodium Chloride) 100 mls @ 25 mls/hr IV Q8H [facility] Last Admin: 06/15/21 15:19 Dose: 25 mls/hr Documented by: Vancomycin HCl 1 gm/Vancomycin HCl 250 mg/ Sodium Chloride 250 mls @ 250 mls/hr IV Q12H [facility] Last Admin: 06/14/21 20:51 Dose: 250 mls/hr Documented by: Magnesium Sulfate 2 gm/ Premix 50 mls @ 25 mls/hr IV ONETIME ONE Stop: 06/13/21 11:01 Last Admin: 06/13/21 09:52 Dose: 25 mls/hr Documented by: Potassium Chloride 10 meq/ (Premix) 100 mls @ 100 mls/hr IV ONETIME ONE Stop: 06/13/21 10:27 Last Admin: 06/13/21 11:29 Dose: Not Given Documented by: Potassium Chloride 10 meq/ (Premix) 100 mls @ 100 mls/hr IV ONETIME ONE Stop: 06/13/21 11:59 Potassium Chloride 10 meq/ (Premix) 100 mls @ 100 mls/hr IV ONETIME ONE Stop: 06/13/21 13:59 Last Admin: 06/13/21 12:19 Dose: 100 mls/hr Documented by: Sodium Chloride (Normal Saline) 150 mls @ 50 mls/hr IV ASDIRECTED [facility] Last Admin: 06/13/21 12:19 Dose: 50 mls/hr Documented by: Magnesium Sulfate 4 gm/ Premix 50 mls @ 12.5 mls/hr IV ONETIME ONE Stop: 06/14/21 13:47 Last Admin: 06/14/21 10:28 Dose: 12.5 mls/hr Documented by: Albumin Human (Flexbumin 25%) 12.5 gm in 50 mls @ 100 mls/hr IV ONETIME ONE Stop: 06/15/21 09:20 Last Admin: 06/15/21 09:40 Dose: 80 mls/hr Documented by: Albumin Human (Flexbumin 25%) 12.5 gm in 50 mls @ 100 mls/hr IV ONETIME ONE Stop: 06/15/21 16:29 Last Admin: 06/15/21 15:12 Dose: 100 mls/hr Documented by: Lactated Ringer's (Ringers, Lactated) 1,000 mls @ 75 mls/hr IV ASDIRECTED [facility] Last Admin: 06/15/21 14:56 Dose: 75 mls/hr Documented by: Lactated Ringer's (Ringers, Lactated) 1,000 mls @ 75 mls/hr IV ASDIRECTED [facility] Last Admin: 06/16/21 23:04 Dose: 75 mls/hr Documented by: Magnesium Sulfate 2 gm/ Premix 50 mls @ 25 mls/hr IV ONETIME ONE Stop: 06/16/21 11:04 Last Admin: 06/16/21 09:29 Dose: 25 mls/hr Documented by: Magnesium Sulfate 4 gm/ Premix 50 mls @ 12.5 mls/hr IV ONETIME ONE Stop: 06/17/21 12:34 Last Admin: 06/17/21 09:44 Dose: 12.5 mls/hr Documented by: Magnesium Sulfate 2 gm/ Premix 50 mls @ 25 mls/hr IV ONETIME ONE Stop: 06/18/21 12:40 Last Admin: 06/18/21 10:50 Dose: 25 mls/hr Documented by: CASIRIVIMAB/IMDEVIMAB 10 ml/ (Sodium Chloride) 110 mls @ 220 mls/hr IV ONETIME ONE Stop: 06/18/21 14:59 Last Admin: 06/18/21 14:33 Dose: 220 mls/hr Documented by: Magnesium Oxide (Magnesium Oxide 400 Mg Tab) 400 mg PO BID [facility] Last Admin: 06/14/21 08:23 Dose: 400 mg Documented by: Metoprolol Succinate (Metoprolol Succinate 50 Mg Tab.Er) 50 mg PO DAILY [facility] Last Admin: 06/13/21 08:38 Dose: 50 mg Documented by: Multi-Ingred Cream/Lotion/Oil/Oint (Zinc Oxide 20% Oint 28.35 Gm Tube) 1 gm TOP Q1H [facility] Last Admin: 06/13/21 12:04 Dose: Not Given Documented by: Multi-Ingred Cream/Lotion/Oil/Oint (Zinc Oxide 20% Oint 28.35 Gm Tube) 1 gm TOP DAILY [facility] Stop: 06/14/21 09:01 Last Admin: 06/14/21 08:24 Dose: 1 gm Documented by: Neomycin/Polymyxin/Bacitracin (Bacitracin/Neomycin/Polymyxin B Oint 15 Gm Tube) 0 gm TOP BID [facility] Last Admin: 06/16/21 11:50 Dose: Not Given Documented by: Oxycodone HCl (Oxycodone 5 Mg Tab) 5 mg PO Q6H PRN PRN Reason: Pain Pharmacy Consult (Pharmacy Consult Order) 1 each .XX ASDIRECTED [facility] Polyethylene Glycol (Polyethylene Glycol 3350 Powder 17 Gm Packet) 17 gm PO DAILY [facility] Last Admin: 06/14/21 08:55 Dose: Not Given Documented by: Potassium Chloride (Potassium Chloride 20 Meq Tab.Er) 40 meq PO ONETIME ONE Stop: 06/13/21 09:29 Last Admin: 06/13/21 10:37 Dose: 40 meq Documented by: Potassium Chloride (Potassium Chloride 20 Meq Tab.Er) 20 meq PO ONETIME ONE Stop: 06/14/21 09:36 Last Admin: 06/14/21 10:28 Dose: 20 meq Documented by: Potassium Chloride (Potassium Chloride 20 Meq Tab.Er) 20 meq PO ONETIME ONE Stop: 06/15/21 17:01 Last Admin: 06/15/21 18:30 Dose: 20 meq Documented by: Vancomycin HCl (Pharmacy To Dose - Vancomycin) 1 dose .XX ASDIRECTED [facility] Vancomycin HCl (Vancomycin 1 Gm Sdv) Confirm Administered Dose 2 gm .ROUTE .STK- MED ONE Stop: 06/12/21 21:43 Last Admin: 06/12/21 21:55 Dose: Not Given Documented by: - Exam Quality Assessment: No: Supplemental Oxygen Urinary Catheter Total Time: 1Days 23Hours General: Alert HEENT: Pupils Equal, Mucous Membr. Moist/[place] Neck: Supple Lungs: Clear to Auscultation, Normal Respiratory Effort Cardiovascular: Regular Rate, Regular Rhythm GI/Abdominal Exam: Normal Bowel Sounds, Soft, Non-Tender, No Distention Extremities: Other (Unna boots are present) - Patient Data Lab Results Last 24 hrs: Laboratory Results - last 24 hr 06/18/21 06/18/21 Range/Units 04:26 10:20 Sodium 142 (136-145) mEq/L Potassium 3.8 (3.5-5.1) mEq/L Chloride 108 H (98-107) mEq/L Carbon Dioxide 28 (21-32) mEq/L Anion Gap 9.8 (5-15) BUN 33 H (7-18) mg/dL Creatinine 1.3 H (0.55-1.02) mg/dL Est Cr Clr Drug Dosing 31.29 mL/min Estimated GFR (MDRD) 40 (>60) mL/min BUN/Creatinine Ratio 25.4 H (14-18) Glucose 105 H (70-99) mg/dL Calcium 9.1 (8.5-10.1) mg/dL Magnesium 1.7 L (1.8-2.4) mg/dL Total Bilirubin 0.9 (0.2-1.0) mg/dL AST 43 H (15-37) U/L ALT 49 (14-59) U/L Alkaline Phosphatase 229 H (46-116) U/L Total Protein 5.1 L (6.4-8.2) g/dl Albumin 2.3 L (3.4-5.0) g/dl Globulin 2.8 gm/dL Albumin/Globulin Ratio 0.8 L (1-2) SARS-CoV-2 RNA ([facility]) Positive H (NEGATIVE) Result Diagrams: 06/17/21 06:27 06/18/21 04:26 Leroy Results Last 24 hrs: Microbiology 06/12/21 16:00 Blood Culture - Final Blood - Venous - Lab Draw 06/12/21 15:50 Blood Culture - Final Blood - Venous Sepsis Event Note - Evaluation Sepsis Screening Result: Possible Sepsis Risk - Focused Exam Vital Signs: Vital Signs Temp Pulse Resp BP Pulse Ox 06/18/21 15:17 92 163/71 H 92 L 06/18/21 14:48 89 144/81 H 94 L 06/18/21 14:46 92 157/72 H 93 L 06/18/21 14:44 90 94 L 06/18/21 14:43 88 158/65 H 93 L 06/18/21 14:06 97.7 F 96 14 144/82 H 92 L 06/18/21 09:05 98.8 F 97 12 144/95 H 90 L 06/18/21 03:27 98.2 F 99 18 142/88 H 92 L - Problem List & Annotations (1) Traumatic arthropathy, right hand SNOMED Code(s): 509236129, 127341635 Code(s): M12.541 - TRAUMATIC ARTHROPATHY, RIGHT HAND Status: Acute Current Visit: Yes (2) Acute kidney injury SNOMED Code(s): 78419889, 20249119 Code(s): N17.9 - ACUTE KIDNEY FAILURE, UNSPECIFIED Status: Acute Current Visit: Yes (3) Cellulitis of both lower extremities SNOMED Code(s): 973504890 Code(s): L03.115 - CELLULITIS OF RIGHT LOWER LIMB; L03.116 - CELLULITIS OF LEFT LOWER LIMB Status: Acute Current Visit: Yes (4) Dependent edema SNOMED Code(s): 868376351 Code(s): R60.9 - EDEMA, UNSPECIFIED Status: Acute Current Visit: Yes (5) Fall at home SNOMED Code(s): 35260094 Code(s): W19.XXXA - UNSPECIFIED FALL, INITIAL ENCOUNTER; Y92.009 - UNSP PLACE IN UNSP NON-INSTITUT (PRIVATE) RESIDENCE PLACE Status: Acute Current Visit: No (6) Hypokalemia SNOMED Code(s): 78598368 Code(s): E87.6 - HYPOKALEMIA Status: Acute Current Visit: Yes (7) Hypomagnesemia SNOMED Code(s): 253479014 Code(s): E83.42 - HYPOMAGNESEMIA Status: Acute Current Visit: Yes (8) UTI (urinary tract infection) SNOMED Code(s): 71596053 Code(s): N39.0 - URINARY TRACT INFECTION, SITE NOT SPECIFIED Status: Acute Current Visit: Yes Qualifiers: Urinary tract infection type: site unspecified Hematuria presence: with hematuria Qualified Code(s): N39.0 - Urinary tract infection, site not specified; R31.9 - Hematuria, unspecified (9) Elevated CK SNOMED Code(s): 601122592 Code(s): R74.8 - ABNORMAL LEVELS OF OTHER SERUM ENZYMES Status: Resolved Current Visit: Yes - Problem List Review Problem List Initiated/Reviewed/Updated: Yes - My Orders Last 24 Hours: My Active Orders 06/18/21 10:45 Magnesium Oxide 400 mg PO BID 06/18/21 13:58 Code Status [Resuscitation Status] Routine 06/18/21 14:00 EPINEPHrine [Adrenalin] 0.3 mg IM ONETIME PRN Famotidine [Pepcid] 20 mg IVPUSH ONETIME PRN Sodium Chloride 0.9% [Saline Flush] 30 ml FLUSH ASDIRECTED diphenhydrAMINE [Benadryl] 50 mg IVPUSH ONETIME PRN methylPREDNISolone Sod Succ [Solu-MEDROL] 125 mg IVPUSH ONETIME PRN 06/18/21 14:01 Vital Signs [RC] Q15M - Plan Plan:: Covid positive Patient is asymptomatic. Screening done for discharge to long-term care facility. -Patient is at high risk for complication, therefore will give Regeneron. I spoke with Ivania her sister who is her healthcare proxy to provide information about Regeneron for Yana Seo. I have offered to them the "fax sheet for patients and parents/caregivers" for Regeneron to read and review. I stated that therapy has been approved by an emergency use authorization process and has not fully been FDA reviewed or approved. I shared potential risks from the therapy including anaphylaxis and hypotension. I discussed there are other potential treatment options that are currently not FDA approved to treat COVID- 19. Offered opportunity to ask questions and all questions were answered. Ivania voiced understanding and agreed to proceed with treatment for Yana Seo sepsis without shock-elevated white count - resolved. mrsa positive nasal swab. added fluconazole due to the severalty of a pityriasis versicolor and appearance on genital rash with satellite lesions -Fevers have resolved -White count now normal -Currently on Septra -Finished fluconazole -Urine culture positive for Klebsiella pneumoniae sensitive to Septra UTI acute-history of incontinence -Blood cultures negative -Urine culture: Klebsiella pneumonia - multi-sensitive -Switched to Septra acute CHF exacerbation-Pulmonary congestion on bilateral cxr, bilateral noted on chest x-ray, 1 L of fluids was given in the ER History of questionable CHF, when CPK returns may need to alter fluids and diuresis. -Echocardiogram: 1. Left ventricular ejection fraction, by visual estimation, is 60 to 65%. 2. Normal left ventricular systolic function. 3. Mild septal left ventricular hypertrophy. 4. Normal pattern of LV diastolic filling. 5. Mildly dilated left atrium. 6. Mildly dilated right atrium. 7. Mild mitral valve regurgitation. 8. Trace tricuspid valve regurgitation. 9. The right ventricular systolic pressure is probably normal. 10. No regional wall motion abnormalities -Lower extremity edema is most likely secondary to dependent edema -Kidney function slightly improved -Lasix on hold -Stop fluids Elevated troponin-likely secondary to troponin leak, -Echocardiogram showed no wall motion abnormalities -Plt now 80,000 -Stopped Lovenox Nausea and vomiting-resolved 6. Elevated LFT-improved: Concern that it may be associated with rhabdomyolysis with pending CPK, or secondary to CHF exacerbation with BNP pending, pending overall work-up. Right upper quadrant ultrasound performed: Large 4.5 cm gallstone with increased common bile duct dilatation at 1.1 cm. This biliary duct dilatation is an interval change from prior exam. -Total bilirubin returned to normal of 0.9 and albumin improved to 2.3 enzymes improved. -Enzymes are improving, ALT is improving is still elevated at 229. -She is not a surgical candidate at this time and she is not symptomatic. -Concern Diflucan could have caused worsening of LFTs. -Liver enzymes have improved -Diflucan completed -Encouraged improved diet. Dietary consult 7. Thrombocytopenia -likely secondary to sepsis and chronic illness -Stop Lovenox -Continue aspirin at this time -Platelets slightly improved at 85,000 8. Hypertension-continue metoprolol. Doming[place] 9. Asthma-asymptomatic, will add as needed albuterol if necessary 10. Chronic constipation-stop Colace and MiraLAX because of current diarrhea -Patient is having loose and watery stools. Review of her old chart shows that it is likely chronic now. Will stop her oral magnesium and treat with IV magnesium while in the hospital. Stop Colace and MiraLAX. 11. Rhabdo - resolved, -CK has normalized -Renal function is improving -Continue to monitor. 12. metabolic encephalopathy -resolved -Mentation now is likely secondary to longstanding dementia -Placement pending 13. decubitus bilateral lower extremity -Physical therapy is doing daily dressing changes with Unna boots -Switched to Septra 14 NSTEMI- heparin, plavix, asa started when troponin increase. family is realistic and no transfer will be done -Continue aspirin -Heparin stopped secondary to thrombocytopenia -Likely a type II UT secondary to sepsis -No wall motion abnormalities 15. pityriasis versicolor- and generalized fungal infection-fluconazole finished 16. anxiety -ativan 0.5 prn bid added IV 17. Chronic hypomagnesemia -Stop oral magnesium while hospitalized secondary to diarrhea -Supplement as needed ppx Unna boot, aspirin; Lovenox/heparin contraindicated secondary to thrombocytopenia. Unna boot serves as compression device. full code Hospital stay greater than 96 hours secondary to placement issues, long weekend, slow resolution of sepsis and acute renal insufficiency.
[2021-06-18] MEDS: Ibuprofen 600 MG Tab PO PRN (16:28)
--- NOTE | 2021-06-18 17:20 | PCM.EKG ---
#1 Interpretation EKG Date: 06/12/21 Time: 10:55 Rate (Beats/Min): 91 [place]: Normal P-Wave: Enlarged (Left atrial enlargement) QRS: Other (INCD) ST-T: Normal QT: Normal EKG Interpretation Comments: Normal sinus rhythm with a ventricular rate of 91 bpm. Left atrial enlargement noted with possible deep Q waves in V1, but difficult to ascertain because of artifact. Nonspecific interventricular conduction delay. Q-waves in V1 and aVL are normal variant and artifact make it difficult to determine there is a Q wave in V2. Abnormal EKG
[2021-06-18] MEDS: Acetaminophen 325 MG Tab PO PRN (22:54)
[2021-06-19] MEDS: Metoprolol Succinate 50 MG Tab.ER PO SCH (09:30)
[2021-06-19] MEDS: Aspirin 81 MG Tab.EC PO SCH (09:30)
[2021-06-19] MEDS: Magnesium Oxide 400 MG Tab PO SCH ×2 (09:30→20:36)
[2021-06-19] MEDS: Nystatin Topical Powder 15 GM Bottle TOP SCH ×4 (09:31→20:39)
[2021-06-19] MEDS: Potassium Chloride 20 MEQ Tab.ER PO SCH (09:31)
[2021-06-19] MEDS: Sulfamethoxazole/Trimethoprim 800-160 MG Tab PO SCH ×2 (09:31→20:39)
--- NOTE | 2021-06-19 16:03 | PCM.PN ---
- General Info Date of Service: 06/19/21 Admission Dx/Problem (Free Text): Admission Diagnosis/Problem Admission Diagnosis/Problem Sepsis Subjective Update: Naveen is without any pain today. She is asking to have her legs rewrapped and to shower today. Other than that she is doing well. Blood pressures have been high and we held her metoprolol on admission. Functional Status: Reports: Pain Controlled - Review of Systems General: Reports: No Symptoms HEENT: Reports: No Symptoms Pulmonary: Reports: No Symptoms Cardiovascular: Reports: No Symptoms Gastrointestinal: Reports: No Symptoms - Patient Data Vitals - Most Recent: Last Vital Signs Temp 97.9 F 06/19/21 08:11 Pulse 97 06/19/21 09:30 Resp 16 06/19/21 08:11 BP 157/91 H 06/19/21 09:30 Pulse Ox 91 L 06/19/21 08:11 Weight - Most Recent: 229 lb 9.6 oz I&O - Last 24 Hours: Intake & Output 06/19/21 06/19/21 06/19/21 06:59 14:59 22:59 Intake Total 350 Output Total 500 Balance -150 Leroy Results Last 24 Hours: Microbiology 06/13/21 10:16 Blood Culture - Final Blood - Venous - Lab Draw 06/13/21 10:10 Blood Culture - Final Blood - Venous Med Orders - Current: Current Medications Acetaminophen (Acetaminophen 325 Mg Tab) 650 mg PO Q4H PRN PRN Reason: Pain (Mild 1-3)/fever Last Admin: 06/18/21 22:54 Dose: 650 mg Documented by: Acetaminophen (Acetaminophen 650 Mg Supp) 650 mg RECTAL Q4H PRN PRN Reason: Fever Last Admin: 06/12/21 18:39 Dose: 650 mg Documented by: Aspirin (Aspirin 81 Mg Tab.Ec) 81 mg PO DAILY [facility] Last Admin: 06/19/21 09:30 Dose: 81 mg Documented by: Docusate Sodium (Docusate Sodium 100 Mg Cap) 100 mg PO Q12H PRN PRN Reason: Constipation Ibuprofen (Ibuprofen 600 Mg Tab) 600 mg PO Q6H PRN PRN Reason: Pain/Fever Last Admin: 06/18/21 16:28 Dose: 600 mg Documented by: Lorazepam (Lorazepam 2 Mg/Ml Sdv) 0.5 mg IVPUSH BID PRN PRN Reason: Anxiety Last Admin: 06/15/21 12:20 Dose: 0.5 mg Documented by: Magnesium Oxide (Magnesium Oxide 400 Mg Tab) 400 mg PO BID [facility] Last Admin: 06/19/21 09:30 Dose: 400 mg Documented by: Metoprolol Succinate (Metoprolol Succinate 50 Mg Tab.Er) 50 mg PO DAILY [facility] Last Admin: 06/19/21 09:30 Dose: 50 mg Documented by: Nystatin (Nystatin Topical Powder 15 Gm Bottle) 0 gm TOP QID [facility] Last Admin: 06/19/21 13:15 Dose: 1 applic Documented by: Ondansetron HCl (Ondansetron 4 Mg Tab.Dis) 4 mg PO Q4H PRN PRN Reason: nausea, able to take PO Potassium Chloride (Potassium Chloride 20 Meq Tab.Er) 20 meq PO DAILY [facility] Last Admin: 06/19/21 09:31 Dose: 20 meq Documented by: Sodium Chloride (Sodium Chloride 0.9% 10 Ml Syringe) 10 ml FLUSH ASDIRECTED PRN PRN Reason: Keep Vein Open Last Admin: 06/12/21 15:46 Dose: 10 ml Documented by: Temazepam (Temazepam 7.5 Mg Cap) 7.5 mg PO BEDTIME PRN PRN Reason: Sleep Tramadol HCl (Tramadol 50 Mg Tab) 50 mg PO Q6H PRN PRN Reason: Pain Last Admin: 06/14/21 18:48 Dose: 50 mg Documented by: Trimethoprim/Sulfamethoxazole (Sulfamethoxazole/Trimethoprim 800-160 Mg Tab) 1 tab PO BID [facility] Last Admin: 06/19/21 09:31 Dose: 1 tab Documented by: Discontinued Medications Aspirin (Aspirin 325 Mg Tab.Ec) 325 mg PO ONETIME ONE Stop: 06/12/21 22:46 Last Admin: 06/12/21 23:23 Dose: 325 mg Documented by: Clopidogrel Bisulfate (Clopidogrel 75 Mg Tab) 300 mg PO ONETIME ONE Stop: 06/12/21 22:46 Last Admin: 06/12/21 23:23 Dose: 300 mg Documented by: Diphenhydramine HCl (Diphenhydramine 50 Mg/Ml Sdv) 50 mg IVPUSH ONETIME PRN PRN Reason: hypersensitivity reaction Stop: 06/18/21 20:00 Docusate Sodium (Docusate Sodium 100 Mg Cap) 100 mg PO BID [facility] Last Admin: 06/14/21 08:54 Dose: Not Given Documented by: Enoxaparin Sodium (Enoxaparin 40 Mg/0.4 Ml Syringe) 40 mg SUBCUT DAILY [facility] Last Admin: 06/15/21 08:05 Dose: 40 mg Documented by: Epinephrine HCl (Epinephrine 1 Mg/Ml Sdv) 0.3 mg IM ONETIME PRN PRN Reason: hypersensitivity reaction Stop: 06/18/21 20:00 Famotidine (Famotidine 20 Mg/2 Ml Sdv) 20 mg IVPUSH BID [facility] Last Admin: 06/14/21 08:23 Dose: 20 mg Documented by: Famotidine (Famotidine 20 Mg/2 Ml Sdv) 20 mg IVPUSH ONETIME PRN PRN Reason: hypersensitivity reaction Stop: 06/18/21 20:00 Furosemide (Furosemide 20 Mg Tab) 20 mg PO DAILY PRN PRN Reason: Edema Furosemide (Furosemide 40 Mg/4 Ml Vial) 40 mg IVPUSH TID [facility] Last Admin: 06/13/21 08:37 Dose: 40 mg Documented by: Furosemide (Furosemide 20 Mg/2 Ml Vial) 20 mg IVPUSH DAILY [facility] Last Admin: 06/15/21 08:04 Dose: 20 mg Documented by: Heparin Sodium (Porcine) (Heparin Sodium 5,000 Units/Ml Vial) 5,000 units SUBCUT Q8H [facility] Last Admin: 06/12/21 18:38 Dose: 5,000 units Documented by: Heparin Sodium (Porcine) (Heparin Sodium 5,000 Units/Ml Vial) 4,000 units IVPUSH ONETIME ONE Stop: 06/12/21 23:21 Last Admin: 06/13/21 00:15 Dose: 4,000 units Documented by: Sodium Chloride (Normal Saline) 1,000 mls @ 999 mls/hr IV ONETIME ONE; Protocol Stop: 06/12/21 16:28 Last Admin: 06/12/21 15:46 Dose: 999 mls/hr Documented by: Ceftriaxone Sodium 2 gm/ (Sodium Chloride) 100 mls @ 200 mls/hr IV ONETIME ONE Stop: 06/12/21 16:52 Last Admin: 06/12/21 16:28 Dose: 200 mls/hr Documented by: Ceftriaxone Sodium 2 gm/ (Sodium Chloride) 100 mls @ 200 mls/hr IV Q24H [facility] Vancomycin HCl 2 gm/ Sodium (Chloride) 500 mls @ 250 mls/hr IV ONETIME ONE Stop: 06/12/21 22:59 Last Admin: 06/12/21 22:01 Dose: 250 mls/hr Documented by: Vancomycin HCl 1.25 gm/ Sodium (Chloride) 250 mls @ 250 mls/hr IV Q12H [facility] Heparin Sodium/Dextrose (Heparin 25,000 Units In D5w 500 Ml) 25,000 units in 500 mls @ 20 mls/hr IV TITRATE [facility]; Protocol Last Titration: 06/14/21 04:08 Dose: 4.8 mls/hr Documented by: Piperacillin Sod/Tazobactam (Sod 3.375 gm/ Sodium Chloride) 100 mls @ 25 mls/hr IV Q8H [facility] Fluconazole/Sodium Chloride (200 mg/ Premix) 100 mls @ 100 mls/hr IV Q24H [facility] Last Admin: 06/15/21 08:04 Dose: 100 mls/hr Documented by: Piperacillin Sod/Tazobactam (Sod 4.5 gm/ Sodium Chloride) 100 mls @ 200 mls/hr IV ONETIME ONE Stop: 06/13/21 08:29 Last Admin: 06/13/21 08:37 Dose: 200 mls/hr Documented by: Piperacillin Sod/Tazobactam (Sod 4.5 gm/ Sodium Chloride) 100 mls @ 25 mls/hr IV Q8H [facility] Last Admin: 06/15/21 15:19 Dose: 25 mls/hr Documented by: Vancomycin HCl 1 gm/Vancomycin HCl 250 mg/ Sodium Chloride 250 mls @ 250 mls/hr IV Q12H [facility] Last Admin: 06/14/21 20:51 Dose: 250 mls/hr Documented by: Magnesium Sulfate 2 gm/ Premix 50 mls @ 25 mls/hr IV ONETIME ONE Stop: 06/13/21 11:01 Last Admin: 06/13/21 09:52 Dose: 25 mls/hr Documented by: Potassium Chloride 10 meq/ (Premix) 100 mls @ 100 mls/hr IV ONETIME ONE Stop: 06/13/21 10:27 Last Admin: 06/13/21 11:29 Dose: Not Given Documented by: Potassium Chloride 10 meq/ (Premix) 100 mls @ 100 mls/hr IV ONETIME ONE Stop: 06/13/21 11:59 Potassium Chloride 10 meq/ (Premix) 100 mls @ 100 mls/hr IV ONETIME ONE Stop: 06/13/21 13:59 Last Admin: 06/13/21 12:19 Dose: 100 mls/hr Documented by: Sodium Chloride (Normal Saline) 150 mls @ 50 mls/hr IV ASDIRECTED [facility] Last Admin: 06/13/21 12:19 Dose: 50 mls/hr Documented by: Magnesium Sulfate 4 gm/ Premix 50 mls @ 12.5 mls/hr IV ONETIME ONE Stop: 06/14/21 13:47 Last Admin: 06/14/21 10:28 Dose: 12.5 mls/hr Documented by: Albumin Human (Flexbumin 25%) 12.5 gm in 50 mls @ 100 mls/hr IV ONETIME ONE Stop: 06/15/21 09:20 Last Admin: 06/15/21 09:40 Dose: 80 mls/hr Documented by: Albumin Human (Flexbumin 25%) 12.5 gm in 50 mls @ 100 mls/hr IV ONETIME ONE Stop: 06/15/21 16:29 Last Admin: 06/15/21 15:12 Dose: 100 mls/hr Documented by: Lactated Ringer's (Ringers, Lactated) 1,000 mls @ [facility] Last Admin: 06/15/21 14:56 Dose: 75 mls/hr Documented by: Lactated Ringer's (Ringers, Lactated) 1,000 mls @ 75 [facility]ls[facility] Last Admin: 06/16/21 23:04 Dose: 75 mls/hr Documented by: Magnesium Sulfate 2 gm/ Premix 50 mls @ 25 mls/hr IV ONETIME ONE Stop: 06/16/21 11:04 Last Admin: 06/16/21 09:29 Dose: 25 mls/hr Documented by: Magnesium Sulfate 4 gm/ Premix 50 mls @ 12.5 mls/hr IV ONETIME ONE Stop: 06/17/21 12:34 Last Admin: 06/17/21 09:44 Dose: 12.5 mls/hr Documented by: Magnesium Sulfate 2 gm/ Premix 50 mls @ 25 mls/hr IV ONETIME ONE Stop: 06/18/21 12:40 Last Admin: 06/18/21 10:50 Dose: 25 mls/hr Documented by: CASIRIVIMAB/IMDEVIMAB 10 ml/ (Sodium Chloride) 110 mls @ 220 mls/hr IV ONETIME ONE Stop: 06/18/21 14:59 Last Admin: 06/18/21 14:33 Dose: 220 mls/hr Documented by: Magnesium Oxide (Magnesium Oxide 400 Mg Tab) 400 mg PO BID [facility] Last Admin: 06/14/21 08:23 Dose: 400 mg Documented by: Methylprednisolone Sodium Succinate (Methylprednisolone Sodium Succinate 125 Mg/2 Ml Sdv) 125 mg IVPUSH ONETIME PRN PRN Reason: hypersensitivity reaction Stop: 06/18/21 20:00 Metoprolol Succinate (Metoprolol Succinate 50 Mg Tab.Er) 50 mg PO DAILY [facility] Last Admin: 06/13/21 08:38 Dose: 50 mg Documented by: Multi-Ingred Cream/Lotion/Oil/Oint (Zinc Oxide 20% Oint 28.35 Gm Tube) 1 gm TOP Q1H [facility] Last Admin: 06/13/21 12:04 Dose: Not Given Documented by: Multi-Ingred Cream/Lotion/Oil/Oint (Zinc Oxide 20% Oint 28.35 Gm Tube) 1 gm TOP DAILY [facility] Stop: 06/14/21 09:01 Last Admin: 06/14/21 08:24 Dose: 1 gm Documented by: Neomycin/Polymyxin/Bacitracin (Bacitracin/Neomycin/Polymyxin B Oint 15 Gm Tube) 0 gm TOP BID [facility] Last Admin: 06/16/21 11:50 Dose: Not Given Documented by: Oxycodone HCl (Oxycodone 5 Mg Tab) 5 mg PO Q6H PRN PRN Reason: Pain Pharmacy Consult (Pharmacy Consult Order) 1 each .XX ASDIRECTED [facility] Polyethylene Glycol (Polyethylene Glycol 3350 Powder 17 Gm Packet) 17 gm PO DAILY [facility] Last Admin: 06/14/21 08:55 Dose: Not Given Documented by: Potassium Chloride (Potassium Chloride 20 Meq Tab.Er) 40 meq PO ONETIME ONE Stop: 06/13/21 09:29 Last Admin: 06/13/21 10:37 Dose: 40 meq Documented by: Potassium Chloride (Potassium Chloride 20 Meq Tab.Er) 20 meq PO ONETIME ONE Stop: 06/14/21 09:36 Last Admin: 06/14/21 10:28 Dose: 20 meq Documented by: Potassium Chloride (Potassium Chloride 20 Meq Tab.Er) 20 meq PO ONETIME ONE Stop: 06/15/21 17:01 Last Admin: 06/15/21 18:30 Dose: 20 meq Documented by: Sodium Chloride (Sodium Chloride 0.9% 10 Ml Syringe) 30 ml FLUSH ASDIRECTED [facility] Stop: 06/18/21 20:00 Vancomycin HCl (Pharmacy To Dose - Vancomycin) 1 dose .XX ASDIRECTED [facility] Vancomycin HCl (Vancomycin 1 Gm Sdv) Confirm Administered Dose 2 gm .ROUTE .STK- MED ONE Stop: 06/12/21 21:43 Last Admin: 06/12/21 21:55 Dose: Not Given Documented by: - Exam Quality Assessment: No: Supplemental Oxygen Urinary Catheter Total Time: 1Days 23Hours General: Alert, Oriented Neck: Supple Lungs: Clear to Auscultation, Normal Respiratory Effort Cardiovascular: Regular Rate, Regular Rhythm GI/Abdominal Exam: Normal Bowel Sounds, Soft, Non-Tender, No Distention Extremities: Other (Bilateral lower extremities wrapped with Unna boots) - Patient Data Result Diagrams: 06/17/21 06:27 06/18/21 04:26 Leroy Results Last 24 hrs: Microbiology 06/13/21 10:16 Blood Culture - Final Blood - Venous - Lab Draw 06/13/21 10:10 Blood Culture - Final Blood - Venous Sepsis Event Note - Evaluation Sepsis Screening Result: Possible Sepsis Risk - Focused Exam Vital Signs: Vital Signs Temp Temp Pulse Pulse Resp BP BP 06/19/21 09:30 97 157/91 H 06/19/21 08:11 97.9 F 97 16 157/91 H 06/19/21 05:07 97.9 F 90 16 152/68 H 06/19/21 05:02 97.9 F 80 16 152/68 H Pulse Ox 06/19/21 09:30 06/19/21 08:11 91 L 06/19/21 05:07 94 L 06/19/21 05:02 93 L - Problem List & Annotations (1) Traumatic arthropathy, right hand SNOMED Code(s): 080849230, 496720228 Code(s): M12.541 - TRAUMATIC ARTHROPATHY, RIGHT HAND Status: Acute Curre nt Visit: Yes (2) Acute kidney injury SNOMED Code(s): 36704626, 66706295 Code(s): N17.9 - ACUTE KIDNEY FAILURE, UNSPECIFIED Status: Acute Current Visit: Yes (3) Cellulitis of both lower extremities SNOMED Code(s): 397364257 Code(s): L03.115 - CELLULITIS OF RIGHT LOWER LIMB; L03.116 - CELLULITIS OF LEFT LOWER LIMB Status: Acute Current Visit: Yes (4) Dependent edema SNOMED Code(s): 251630475 Code(s): R60.9 - EDEMA, UNSPECIFIED Status: Acute Current Visit: Yes (5) Fall at home SNOMED Code(s): 91078735 Code(s): W19.XXXA - UNSPECIFIED FALL, INITIAL ENCOUNTER; Y92.009 - UNSP PLACE IN UNSP NON-INSTITUT (PRIVATE) RESIDENCE PLACE Status: Acute Current Visit: No (6) Hypokalemia SNOMED Code(s): 87305869 Code(s): E87.6 - HYPOKALEMIA Status: Acute Current Visit: Yes (7) Hypomagnesemia SNOMED Code(s): 442989576 Code(s): E83.42 - HYPOMAGNESEMIA Status: Acute Current Visit: Yes (8) UTI (urinary tract infection) SNOMED Code(s): 25426071 Code(s): N39.0 - URINARY TRACT INFECTION, SITE NOT SPECIFIED Status: Acute Current Visit: Yes Qualifiers: Urinary tract infection type: site unspecified Hematuria presence: with hematuria Qualified Code(s): N39.0 - Urinary tract infection, site not specified; R31.9 - Hematuria, unspecified (9) Elevated CK SNOMED Code(s): 693275667 Code(s): R74.8 - ABNORMAL LEVELS OF OTHER SERUM ENZYMES Status: Resolved Current Visit: Yes - Problem List Review Problem List Initiated/Reviewed/Updated: Yes - My Orders Last 24 Hours: My Active Orders 06/19/21 09:00 Metoprolol Succinate [Toprol XL] 50 mg PO DAILY - Plan Plan:: Covid positive Patient is asymptomatic. Screening done for discharge to long-term care facility. -[facility]- CoV given I spoke with Ivania her sister who is her healthcare proxy to provide information about [facility] for Yana Seo. I have offered to them the "fax sheet for patients and parents/caregivers" for [facility] to read and review. I stated that therapy has been approved by an emergency use authorization process and has not fully been FDA reviewed or approved. I shared potential risks from the therapy including anaphylaxis and hypotension. I discussed there are other potential treatment options that are currently not FDA approved to treat COVID- 19. Offered opportunity to ask questions and all questions were answered. Ivania voiced understanding and agreed to proceed with treatment for Yana Seo sepsis without shock-elevated white count - resolved. mrsa positive nasal swab. added fluconazole due to the severalty of a pityriasis versicolor and appearance on genital rash with satellite lesions -Fevers have resolved -White count now normal -Currently on Septra -Finished fluconazole -Urine culture positive for Klebsiella pneumoniae sensitive to Septra UTI acute- resolved -history of incontinence -Blood cultures negative -Urine culture: Klebsiella pneumonia - multi-sensitive -Switched to Septra acute CHF exacerbation-Pulmonary congestion on bilateral cxr, bilateral noted on chest x-ray, 1 L of fluids was given in the ER History of questionable CHF, when CPK returns may need to alter fluids and diuresis. -Echocardiogram: 1. Left ventricular ejection fraction, by visual estimation, is 60 to 65%. 2. Normal left ventricular systolic function. 3. Mild septal left ventricular hypertrophy. 4. Normal pattern of LV diastolic filling. 5. Mildly dilated left atrium. 6. Mildly dilated right atrium. 7. Mild mitral valve regurgitation. 8. Trace tricuspid valve regurgitation. 9. The right ventricular systolic pressure is probably normal. 10. No regional wall motion abnormalities -Lower extremity edema is most likely secondary to dependent edema -Kidney function slightly improved -Lasix on hold -Stop fluids Elevated troponin-likely secondary to troponin leak, -Echocardiogram showed no wall motion abnormalities -Plt now 80,000 -Stopped Lovenox Nausea and vomiting-resolved 6. Elevated LFT-improved: Concern that it may be associated with rhabdomyolysis with pending CPK, or secondary to CHF exacerbation with BNP pending, pending overall work-up. Right upper quadrant ultrasound performed: Large 4.5 cm gallstone with increased common bile duct dilatation at 1.1 cm. This biliary duct dilatation is an interval change from prior exam. -Total bilirubin returned to normal of 0.9 and albumin improved to 2.3 enzymes improved. -Enzymes are improving, ALT is improving is still elevated at 229. -She is not a surgical candidate at this time and she is not symptomatic. -Concern Diflucan could have caused worsening of LFTs. -Liver enzymes have improved -Diflucan completed -Encouraged improved diet. Dietary consult 7. Thrombocytopenia -likely secondary to sepsis and chronic illness -Stop Lovenox -Continue aspirin at this time -Platelets slightly improved at 85,000 8. Hypertension-continue metoprolol. Dominguez 9. Asthma-asymptomatic, will add as needed albuterol if necessary 10. Chronic constipation-stop Colace and MiraLAX because of current diarrhea -Patient is having loose and watery stools. Review of her old chart shows that it is likely chronic now. Will stop her oral magnesium and treat with IV magnesium while in the hospital. Stop Colace and MiraLAX. 11. Rhabdo - resolved, -CK has normalized -Renal function is improving -Continue to monitor. 12. metabolic encephalopathy -resolved -Mentation now is likely secondary to longstanding dementia -Placement pending 13. decubitus bilateral lower extremity -Physical therapy is doing daily dressing changes with Unna boots -Switched to Septra 14 NSTEMI- heparin, plavix, asa started when troponin increase. family is realistic and no transfer will be done -Continue aspirin -Heparin stopped secondary to thrombocytopenia -Likely a type II CO secondary to sepsis -No wall motion abnormalities 15. pityriasis versicolor- and generalized fungal infection-fluconazole finished 16. anxiety -ativan 0.5 prn bid added IV 17. Chronic hypomagnesemia -Stop oral magnesium while hospitalized secondary to diarrhea -Supplement as needed ppx Unna boot, aspirin; Lovenox/heparin contraindicated secondary to thrombocytopenia. Unna boot serves as compression device. full code Hospital stay greater than 96 hours secondary to placement issues, long weekend, slow resolution of sepsis and acute renal insufficiency.
[2021-06-19] MEDS: Acetaminophen 325 MG Tab PO PRN (20:37)
[2021-06-20] MEDS: Ibuprofen 600 MG Tab PO PRN ×2 (05:43→18:46)
[2021-06-20] MEDS ORDERED: Magnesium Sulfate/Water 4 GM in Premix Bag 1 BAG IV ONE (08:11)
--- NOTE | 2021-06-20 08:26 | PCM.PN ---
- General Info Date of Service: 06/20/21 Admission Dx/Problem (Free Text): Admission Diagnosis/Problem Admission Diagnosis/Problem Sepsis Subjective Update: Yana is feeling well without complaint. I asked patient about her possible Covid symptoms over the last few weeks. Turns out she had a flulike illness with chills and fatigue 2 to 3 weeks ago. It begs a question that she may have had Covid at that time and the current positive is residual virus in the nares. Patient is currently completely asymptomatic. Functional Status: Reports: Pain Controlled - Review of Systems General: Reports: No Symptoms HEENT: Reports: No Symptoms Pulmonary: Reports: No Symptoms Cardiovascular: Reports: No Symptoms - Patient Data Vitals - Most Recent: Last Vital Signs Temp 98.4 F 06/20/21 04:48 Pulse 58 L 06/20/21 04:48 Resp 12 06/20/21 04:48 BP 128/60 06/20/21 04:48 Pulse Ox 91 L 06/20/21 04:48 Weight - Most Recent: 232 lb 4.8 oz I&O - Last 24 Hours: Intake & Output 06/19/21 06/20/21 06/20/21 22:59 06:59 14:59 Intake Total 800 800 Output Total 950 675 Balance -150 125 Lab Results Last 24 Hours: Laboratory Results - last 24 hr 06/20/21 06/20/21 Range/Units 07:28 07:28 WBC 8.81 (3.98-10.04) K/mm3 RBC 4.12 (3.98-5.22) M/mm3 Hgb 12.5 (11.2-15.7) gm/dl Hct 38.7 (34.1-44.9) % MCV 93.9 (79.4-94.8) fl MCH 30.3 (25.6-32.2) pg MCHC 32.3 (32.2-35.5) g/dl RDW Std Deviation 49.9 H (36.4-46.3) fL Plt Count 164 L D (182-369) K/mm3 MPV 10.7 (9.4-12.3) fl Neut % (Auto) 45.9 (34.0-71.1) % Lymph % (Auto) 37.2 (19.3-51.7) % Miner % (Auto) 12.9 H (4.7-12.5) % Eos % (Auto) 3.2 (0.7-5.8) Baso % (Auto) 0.3 (0.1-1.2) % Neut # (Auto) 4.04 (1.56-6.13) K/mm3 Lymph # (Auto) 3.28 (1.18-3.74) K/mm3 Miner # (Auto) 1.14 H (0.24-0.36) K/mm3 Eos # (Auto) 0.28 (0.04-0.36) K/mm3 Baso # (Auto) 0.03 (0.01-0.08) K/mm3 Sodium 140 (136-145) mEq/L Potassium 4.5 (3.5-5.1) mEq/L Chloride 106 (98-107) mEq/L Carbon Dioxide 30 (21-32) mEq/L Anion Gap 8.5 (5-15) BUN 27 H (7-18) mg/dL Creatinine 1.3 H (0.55-1.02) mg/dL Est Cr Clr Drug Dosing 31.29 mL/min Estimated GFR (MDRD) 40 (>60) mL/min BUN/Creatinine Ratio 20.8 H (14-18) Glucose 109 H (70-99) mg/dL Calcium 8.9 (8.5-10.1) mg/dL Magnesium 1.7 L (1.8-2.4) mg/dL Total Bilirubin 0.9 (0.2-1.0) mg/dL AST 26 (15-37) U/L ALT 34 (14-59) U/L Alkaline Phosphatase 202 H (46-116) U/L Total Protein 5.8 L (6.4-8.2) g/dl Albumin 2.5 L (3.4-5.0) g/dl Globulin 3.3 gm/dL Albumin/Globulin Ratio 0.8 L (1-2) Leroy Results Last 24 Hours: Microbiology 06/13/21 10:16 Blood Culture - Final Blood - Venous - Lab Draw 06/13/21 10:10 Blood Culture - Final Blood - Venous Med Orders - Current: Current Medications Acetaminophen (Acetaminophen 325 Mg Tab) 650 mg PO Q4H PRN PRN Reason: Pain (Mild 1-3)/fever Last Admin: 06/19/21 20:37 Dose: 650 mg Documented by: Acetaminophen (Acetaminophen 650 Mg Supp) 650 mg RECTAL Q4H PRN PRN Reason: Fever Last Admin: 06/12/21 18:39 Dose: 650 mg Documented by: Aspirin (Aspirin 81 Mg Tab.Ec) 81 mg PO DAILY [facility] Last Admin: 06/19/21 09:30 Dose: 81 mg Documented by: Docusate Sodium (Docusate Sodium 100 Mg Cap) 100 mg PO Q12H PRN PRN Reason: Constipation Last Admin: 06/19/21 20:37 Dose: 100 mg Documented by: Enoxaparin Sodium (Enoxaparin 40 Mg/0.4 Ml Syringe) 40 mg SUBCUT DAILY [facility] Magnesium Sulfate 4 gm/ Premix 50 mls @ 12.5 mls/hr IV ONETIME ONE Stop: 06/20/21 12:10 Ibuprofen (Ibuprofen 600 Mg Tab) 600 mg PO Q6H PRN PRN Reason: Pain/Fever Last Admin: 06/20/21 05:43 Dose: 600 mg Documented by: Lorazepam (Lorazepam 2 Mg/Ml Sdv) 0.5 mg IVPUSH BID PRN PRN Reason: Anxiety Last Admin: 06/15/21 12:20 Dose: 0.5 mg Documented by: Magnesium Oxide (Magnesium Oxide 400 Mg Tab) 400 mg PO BID [facility] Last Admin: 06/19/21 20:36 Dose: 400 mg Documented by: Metoprolol Succinate (Metoprolol Succinate 50 Mg Tab.Er) 50 mg PO DAILY [facility] Last Admin: 06/19/21 09:30 Dose: 50 mg Documented by: Nystatin (Nystatin Topical Powder 15 Gm Bottle) 0 gm TOP QID [facility] Last Admin: 06/19/21 20:39 Dose: 1 applic Documented by: Ondansetron HCl (Ondansetron 4 Mg Tab.Dis) 4 mg PO Q4H PRN PRN Reason: nausea, able to take PO Potassium Chloride (Potassium Chloride 20 Meq Tab.Er) 20 meq PO DAILY [facility] Last Admin: 06/19/21 09:31 Dose: 20 meq Documented by: Sodium Chloride (Sodium Chloride 0.9% 10 Ml Syringe) 10 ml FLUSH ASDIRECTED PRN PRN Reason: Keep Vein Open Last Admin: 06/12/21 15:46 Dose: 10 ml Documented by: Temazepam (Temazepam 7.5 Mg Cap) 7.5 mg PO BEDTIME PRN PRN Reason: Sleep Tramadol HCl (Tramadol 50 Mg Tab) 50 mg PO Q6H PRN PRN Reason: Pain Last Admin: 06/14/21 18:48 Dose: 50 mg Documented by: Trimethoprim/Sulfamethoxazole (Sulfamethoxazole/Trimethoprim 800-160 Mg Tab) 1 tab PO BID [facility] Last Admin: 06/19/21 20:39 Dose: 1 tab Documented by: Discontinued Medications Aspirin (Aspirin 325 Mg Tab.Ec) 325 mg PO ONETIME ONE Stop: 06/12/21 22:46 Last Admin: 06/12/21 23:23 Dose: 325 mg Documented by: Clopidogrel Bisulfate (Clopidogrel 75 Mg Tab) 300 mg PO ONETIME ONE Stop: 06/12/21 22:46 Last Admin: 06/12/21 23:23 Dose: 300 mg Documented by: Diphenhydramine HCl (Diphenhydramine 50 Mg/Ml Sdv) 50 mg IVPUSH ONETIME PRN PRN Reason: hypersensitivity reaction Stop: 06/18/21 20:00 Docusate Sodium (Docusate Sodium 100 Mg Cap) 100 mg PO BID [facility] Last Admin: 06/14/21 08:54 Dose: Not Given Documented by: Enoxaparin Sodium (Enoxaparin 40 Mg/0.4 Ml Syringe) 40 mg SUBCUT DAILY [facility] Last Admin: 06/15/21 08:05 Dose: 40 mg Documented by: Epinephrine HCl (Epinephrine 1 Mg/Ml Sdv) 0.3 mg IM ONETIME PRN PRN Reason: hypersensitivity reaction Stop: 06/18/21 20:00 Famotidine (Famotidine 20 Mg/2 Ml Sdv) 20 mg IVPUSH BID [facility] Last Admin: 06/14/21 08:23 Dose: 20 mg Documented by: Famotidine (Famotidine 20 Mg/2 Ml Sdv) 20 mg IVPUSH ONETIME PRN PRN Reason: hypersensitivity reaction Stop: 06/18/21 20:00 Furosemide (Furosemide 20 Mg Tab) 20 mg PO DAILY PRN PRN Reason: Edema Furosemide (Furosemide 40 Mg/4 Ml Vial) 40 mg IVPUSH TID [facility] Last Admin: 06/13/21 08:37 Dose: 40 mg Documented by: Furosemide (Furosemide 20 Mg/2 Ml Vial) 20 mg IVPUSH DAILY [facility] Last Admin: 06/15/21 08:04 Dose: 20 mg Documented by: Heparin Sodium (Porcine) (Heparin Sodium 5,000 Units/Ml Vial) 5,000 units SUBCUT Q8H [facility] Last Admin: 06/12/21 18:38 Dose: 5,000 units Documented by: Heparin Sodium (Porcine) (Heparin Sodium 5,000 Units/Ml Vial) 4,000 units IVPUSH ONETIME ONE Stop: 06/12/21 23:21 Last Admin: 06/13/21 00:15 Dose: 4,000 units Documented by: Sodium Chloride (Normal Saline) 1,000 mls @ 999 mls/hr IV ONETIME ONE; Protocol Stop: 06/12/21 16:28 Last Admin: 06/12/21 15:46 Dose: 999 mls/hr Documented by: Ceftriaxone Sodium 2 gm/ (Sodium Chloride) 100 mls @ 200 mls/hr IV ONETIME ONE Stop: 06/12/21 16:52 Last Admin: 06/12/21 16:28 Dose: 200 mls/hr Documented by: Ceftriaxone Sodium 2 gm/ (Sodium Chloride) 100 mls @ 200 mls/hr IV Q24H [facility] Vancomycin HCl 2 gm/ Sodium (Chloride) 500 mls @ 250 mls/hr IV ONETIME ONE Stop: 06/12/21 22:59 Last Admin: 06/12/21 22:01 Dose: 250 mls/hr Documented by: Vancomycin HCl 1.25 gm/ Sodium (Chloride) 250 mls @ 250 mls/hr IV Q12H [facility] Heparin Sodium/Dextrose (Heparin 25,000 Units In D5w 500 Ml) 25,000 units in 500 mls @ 20 mls/hr IV TITRATE [facility]; Protocol Last Titration: 06/14/21 04:08 Dose: 4.8 mls/hr Documented by: Piperacillin Sod/Tazobactam (Sod 3.375 gm/ Sodium Chloride) 100 mls @ 25 mls/hr IV Q8H [facility] Fluconazole/Sodium Chloride (200 mg/ Premix) 100 mls @ 100 mls/hr IV Q24H [facility] Last Admin: 06/15/21 08:04 Dose: 100 mls/hr Documented by: Piperacillin Sod/Tazobactam (Sod 4.5 gm/ Sodium Chloride) 100 mls @ 200 mls/hr IV ONETIME ONE Stop: 06/13/21 08:29 Last Admin: 06/13/21 08:37 Dose: 200 mls/hr Documented by: Piperacillin Sod/Tazobactam (Sod 4.5 gm/ Sodium Chloride) 100 mls @ 25 mls/hr IV Q8H [facility] Last Admin: 06/15/21 15:19 Dose: 25 mls/hr Documented by: Vancomycin HCl 1 gm/Vancomycin HCl 250 mg/ Sodium Chloride 250 mls @ 250 mls/hr IV Q12H [facility] Last Admin: 06/14/21 20:51 Dose: 250 mls/hr Documented by: Magnesium Sulfate 2 gm/ Premix 50 mls @ 25 mls/hr IV ONETIME ONE Stop: 06/13/21 11:01 Last Admin: 06/13/21 09:52 Dose: 25 mls/hr Documented by: Potassium Chloride 10 meq/ (Premix) 100 mls @ 100 mls/hr IV ONETIME ONE Stop: 06/13/21 10:27 Last Admin: 06/13/21 11:29 Dose: Not Given Documented by: Potassium Chloride 10 meq/ (Premix) 100 mls @ 100 mls/hr IV ONETIME ONE Stop: 06/13/21 11:59 Potassium Chloride 10 meq/ (Premix) 100 mls @ 100 mls/hr IV ONETIME ONE Stop: 06/13/21 13:59 Last Admin: 06/13/21 12:19 Dose: 100 mls/hr Documented by: Sodium Chloride (Normal Saline) 150 mls @ 50 mls/hr IV ASDIRECTED [facility] Last Admin: 06/13/21 12:19 Dose: 50 mls/hr Documented by: Magnesium Sulfate 4 gm/ Premix 50 mls @ 12.5 mls/hr IV ONETIME ONE Stop: 06/14/21 13:47 Last Admin: 06/14/21 10:28 Dose: 12.5 mls/hr Documented by: Albumin Human (Flexbumin 25%) 12.5 gm in 50 mls @ 100 mls/hr IV ONETIME ONE Stop: 06/15/21 09:20 Last Admin: 06/15/21 09:40 Dose: 80 mls/hr Documented by: Albumin Human (Flexbumin 25%) 12.5 gm in 50 mls @ 100 mls/hr IV ONETIME ONE Stop: 06/15/21 16:29 Last Admin: 06/15/21 15:12 Dose: 100 mls/hr Documented by: Lactated Ringer's (Ringers, Lactated) 1,000 mls @ 75 mls/hr IV ASDIRECTED [facility] Last Admin: 06/15/21 14:56 Dose: 75 mls/hr Documented by: Lactated Ringer's (Ringers, Lactated) 1,000 mls @ 75 mls/hr IV ASDIRECTED [facility] Last Admin: 06/16/21 23:04 Dose: 75 mls/hr Documented by: Magnesium Sulfate 2 gm/ Premix 50 mls @ 25 mls/hr IV ONETIME ONE Stop: 06/16/21 11:04 Last Admin: 06/16/21 09:29 Dose: 25 mls/hr Documented by: Magnesium Sulfate 4 gm/ Premix 50 mls @ 12.5 mls/hr IV ONETIME ONE Stop: 06/17/21 12:34 Last Admin: 06/17/21 09:44 Dose: 12.5 mls/hr Documented by: Magnesium Sulfate 2 gm/ Premix 50 mls @ 25 mls/hr IV ONETIME ONE Stop: 06/18/21 12:40 Last Admin: 06/18/21 10:50 Dose: 25 mls/hr Documented by: CASIRIVIMAB/IMDEVIMAB 10 ml/ (Sodium Chloride) 110 mls @ 220 mls/hr IV ONETIME ONE Stop: 06/18/21 14:59 Last Admin: 06/18/21 14:33 Dose: 220 mls/hr Documented by: Magnesium Oxide (Magnesium Oxide 400 Mg Tab) 400 mg PO BID [facility] Last Admin: 06/14/21 08:23 Dose: 400 mg Documented by: Methylprednisolone Sodium Succinate (Methylprednisolone Sodium Succinate 125 Mg/2 Ml Sdv) 125 mg IVPUSH ONETIME PRN PRN Reason: hypersensitivity reaction Stop: 06/18/21 20:00 Metoprolol Succinate (Metoprolol Succinate 50 Mg Tab.Er) 50 mg PO DAILY [facility] Last Admin: 06/13/21 08:38 Dose: 50 mg Documented by: Multi-Ingred Cream/Lotion/Oil/Oint (Zinc Oxide 20% Oint 28.35 Gm Tube) 1 gm TOP Q1H [facility] Last Admin: 06/13/21 12:04 Dose: Not Given Documented by: Multi-Ingred Cream/Lotion/Oil/Oint (Zinc Oxide 20% Oint 28.35 Gm Tube) 1 gm TOP DAILY [facility] Stop: 06/14/21 09:01 Last Admin: 06/14/21 08:24 Dose: 1 gm Documented by: Neomycin/Polymyxin/Bacitracin (Bacitracin/Neomycin/Polymyxin B Oint 15 Gm Tube) 0 gm TOP BID [facility] Last Admin: 06/16/21 11:50 Dose: Not Given Documented by: Oxycodone HCl (Oxycodone 5 Mg Tab) 5 mg PO Q6H PRN PRN Reason: Pain Pharmacy Consult (Pharmacy Consult Order) 1 each .XX ASDIRECTED [facility] Polyethylene Glycol (Polyethylene Glycol 3350 Powder 17 Gm Packet) 17 gm PO DAILY [facility] Last Admin: 06/14/21 08:55 Dose: Not Given Documented by: Potassium Chloride (Potassium Chloride 20 Meq Tab.Er) 40 meq PO ONETIME ONE Stop: 06/13/21 09:29 Last Admin: 06/13/21 10:37 Dose: 40 meq Documented by: Potassium Chloride (Potassium Chloride 20 Meq Tab.Er) 20 meq PO ONETIME ONE Stop: 06/14/21 09:36 Last Admin: 06/14/21 10:28 Dose: 20 meq Documented by: Potassium Chloride (Potassium Chloride 20 Meq Tab.Er) 20 meq PO ONETIME ONE Stop: 06/15/21 17:01 Last Admin: 06/15/21 18:30 Dose: 20 meq Documented by: Sodium Chloride (Sodium Chloride 0.9% 10 Ml Syringe) 30 ml FLUSH ASDIRECTED [facility] Stop: 06/18/21 20:00 Vancomycin HCl (Pharmacy To Dose - Vancomycin) 1 dose .XX ASDIRECTED [facility] Vancomycin HCl (Vancomycin 1 Gm Sdv) Confirm Administered Dose 2 gm .ROUTE .STK- MED ONE Stop: 06/12/21 21:43 Last Admin: 06/12/21 21:55 Dose: Not Given Documented by: - Exam Quality Assessment: No: Supplemental Oxygen Urinary Catheter Total Time: 1Days 23Hours General: Alert, Oriented HEENT: Pupils Equal, Mucous Membr. Moist/[place] Neck: Supple Lungs: Clear to Auscultation, Normal Respiratory Effort Cardiovascular: Regular Rate, Regular Rhythm, Murmurs GI/Abdominal Exam: Normal Bowel Sounds, Soft, Non-Tender Skin: Warm, Dry, Intact Psy/Mental Status: Alert, Normal Affect - Patient Data Lab Results Last 24 hrs: Laboratory Results - last 24 hr 06/20/21 06/20/21 Range/Units 07:28 07:28 WBC 8.81 (3.98-10.04) K/mm3 RBC 4.12 (3.98-5.22) M/mm3 Hgb 12.5 (11.2-15.7) gm/dl Hct 38.7 (34.1-44.9) % MCV 93.9 (79.4-94.8) fl MCH 30.3 (25.6-32.2) pg MCHC 32.3 (32.2-35.5) g/dl RDW Std Deviation 49.9 H (36.4-46.3) fL Plt Count 164 L D (182-369) K/mm3 MPV 10.7 (9.4-12.3) fl Neut % (Auto) 45.9 (34.0-71.1) % Lymph % (Auto) 37.2 (19.3-51.7) % Miner % (Auto) 12.9 H (4.7-12.5) % Eos % (Auto) 3.2 (0.7-5.8) Baso % (Auto) 0.3 (0.1-1.2) % Neut # (Auto) 4.04 (1.56-6.13) K/mm3 Lymph # (Auto) 3.28 (1.18-3.74) K/mm3 Miner # (Auto) 1.14 H (0.24-0.36) K/mm3 Eos # (Auto) 0.28 (0.04-0.36) K/mm3 Baso # (Auto) 0.03 (0.01-0.08) K/mm3 Sodium 140 (136-145) mEq/L Potassium 4.5 (3.5-5.1) mEq/L Chloride 106 (98-107) mEq/L Carbon Dioxide 30 (21-32) mEq/L Anion Gap 8.5 (5-15) BUN 27 H (7-18) mg/dL Creatinine 1.3 H (0.55-1.02) mg/dL Est Cr Clr Drug Dosing 31.29 mL/min Estimated GFR (MDRD) 40 (>60) mL/min BUN/Creatinine Ratio 20.8 H (14-18) Glucose 109 H (70-99) mg/dL Calcium 8.9 (8.5-10.1) mg/dL Magnesium 1.7 L (1.8-2.4) mg/dL Total Bilirubin 0.9 (0.2-1.0) mg/dL AST 26 (15-37) U/L ALT 34 (14-59) U/L Alkaline Phosphatase 202 H (46-116) U/L Total Protein 5.8 L (6.4-8.2) g/dl Albumin 2.5 L (3.4-5.0) g/dl Globulin 3.3 gm/dL Albumin/Globulin Ratio 0.8 L (1-2) Result Diagrams: 06/20/21 07:28 06/20/21 07:28 Leroy Results Last 24 hrs: Microbiology 06/13/21 10:16 Blood Culture - Final Blood - Venous - Lab Draw 06/13/21 10:10 Blood Culture - Final Blood - Venous Sepsis Event Note - Evaluation Sepsis Screening Result: No Definite Risk - Focused Exam Vital Signs: Vital Signs Temp Pulse Resp BP Pulse Ox 06/20/21 04:48 98.4 F 58 L 12 128/60 91 L 06/19/21 20:50 98.4 F 66 16 122/85 94 L - Problem List & Annotations (1) Traumatic arthropathy, right hand SNOMED Code(s): 363045728, 793828842 Code(s): M12.541 - TRAUMATIC ARTHROPATHY, RIGHT HAND Status: Acute Current Visit: Yes (2) Acute kidney injury SNOMED Code(s): 72388360, 60963874 Code(s): N17.9 - ACUTE KIDNEY FAILURE, UNSPECIFIED Status: Acute Current Visit: Yes (3) Cellulitis of both lower extremities SNOMED Code(s): 101412045 Code(s): L03.115 - CELLULITIS OF RIGHT LOWER LIMB; L03.116 - CELLULITIS OF LEFT LOWER LIMB Status: Acute Current Visit: Yes (4) Dependent edema SNOMED Code(s): 843974281 Code(s): R60.9 - EDEMA, UNSPECIFIED Status: Acute Current Visit: Yes (5) Fall at home SNOMED Code(s): 89182310 Code(s): W19.XXXA - UNSPECIFIED FALL, INITIAL ENCOUNTER; Y92.009 - UNSP PLACE IN UNSP NON-INSTITUT (PRIVATE) RESIDENCE PLACE Status: Acute Current Visit: No (6) Hypokalemia SNOMED Code(s): 54857401 Code(s): E87.6 - HYPOKALEMIA Status: Acute Current Visit: Yes (7) Hypomagnesemia SNOMED Code(s): 810183992 Code(s): E83.42 - HYPOMAGNESEMIA Status: Acute Current Visit: Yes (8) UTI (urinary tract infection) SNOMED Code(s): 06256371 Code(s): N39.0 - URINARY TRACT INFECTION, SITE NOT SPECIFIED Status: Acute Current Visit: Yes Qualifiers: Urinary tract infection type: site unspecified Hematuria presence: with hematuria Qualified Code(s): N39.0 - Urinary tract infection, site not specified; R31.9 - Hematuria, unspecified (9) Elevated CK SNOMED Code(s): 837095949 Code(s): R74.8 - ABNORMAL LEVELS OF OTHER SERUM ENZYMES Status: Resolved Current Visit: Yes - Problem List Review Problem List Initiated/Reviewed/Updated: Yes - My Orders Last 24 Hours: My Active Orders 06/19/21 09:00 Metoprolol Succinate [Toprol XL] 50 mg PO DAILY 06/20/21 08:11 Magnesium Sulfate/Water [Magnesium Sulfate in Water 4 GM/50 ML] 4 gm Premix Bag 1 bag IV ONETIME 06/20/21 09:00 Enoxaparin [Lovenox] 40 mg SUBCUT DAILY 06/21/21 05:11 C-REACTIVE PROTEIN [CHEM] AM CBC WITH AUTO DIFF [HEME] AM CMP [COMPREHENSIVE METABOLIC PN,CMP] [CHEM] AM DD [D-DIMER QUANTITATIVE] [COAG] AM MAGNESIUM [CHEM] AM PHOSPHORUS [CHEM] AM - Plan Plan:: Covid positive Patient is asymptomatic. Screening done for discharge to long-term care facility. Question if patient may have had symptomatic Covid over 2 weeks ago per her history. -Regen-CoV given I spoke with Ivania her sister who is her healthcare proxy to provide information about [facility]ener[facility] for Yana Seo. I have offered to them the "fax sheet for patients and parents/caregivers" for [facility] to read and review. I stated that therapy has been approved by an emergency use authorization process and has not fully been FDA reviewed or approved. I shared potential risks from the therapy including anaphylaxis and hypotension. I discussed there are other potential treatment options that are currently not FDA approved to treat COVID- 19. Offered opportunity to ask questions and all questions were answered. Ivania voiced understanding and agreed to proceed with treatment for Yana Seo sepsis without shock-elevated white count - resolved. mrsa positive nasal swab. added fluconazole due to the severalty of a pityriasis versicolor and appearance on genital rash with satellite lesions -Fevers have resolved -White count now normal -Currently on Septra -Finished fluconazole -Urine culture positive for Klebsiella pneumoniae sensitive to Septra UTI acute- resolved -history of incontinence -Blood cultures negative -Urine culture: Klebsiella pneumonia - multi-sensitive -Switched to Septra ?acute CHF exacerbation-Pulmonary congestion on bilateral cxr, bilateral noted on chest x-ray, 1 L of fluids was given in the ER History of questionable CHF, when CPK returns may need to alter fluids and diuresis. -Echocardiogram: 1. Left ventricular ejection fraction, by visual estimation, is 60 to 65%. 2. Normal left ventricular systolic function. 3. Mild septal left ventricular hypertrophy. 4. Normal pattern of LV diastolic filling. 5. Mildly dilated left atrium. 6. Mildly dilated right atrium. 7. Mild mitral valve regurgitation. 8. Trace tricuspid valve regurgitation. 9. The right ventricular systolic pressure is probably normal. 10. No regional wall motion abnormalities -Lower extremity edema is most likely secondary to dependent edema -Kidney function slightly improved -Lasix on hold -Stop fluids Elevated troponin-likely secondary to troponin leak, -Echocardiogram showed no wall motion abnormalities -Plt now 80,000 -Stopped Lovenox Nausea and vomiting-resolved Elevated LFT-improved: Concern that it may be associated with rhabdomyolysis with pending CPK, or secondary to CHF exacerbation with BNP pending, pending ov erall work-up. Right upper quadrant ultrasound performed: Large 4.5 cm gallstone with increased common bile duct dilatation at 1.1 cm. This biliary duct dilatation is an interval change from prior exam. -Total bilirubin returned to normal of 0.9 and albumin improved to 2.3 enzymes improved. -Enzymes are improving, ALT is improving is still elevated at 229. -She is not a surgical candidate at this time and she is not symptomatic. -Concern Diflucan could have caused worsening of LFTs. -Liver enzymes have improved -Diflucan completed -Encouraged improved diet. Dietary consult Thrombocytopenia -likely secondary to sepsis and chronic illness -Stop Lovenox -Continue aspirin at this time -Platelets slightly improved at 85,000 Hypertension-continue metoprolol. [place] Asthma-asymptomatic, will add as needed albuterol if necessary Chronic constipation-stop Colace and MiraLAX because of current diarrhea -Patient is having loose and watery stools. Review of her old chart shows that it is likely chronic now. Will stop her oral magnesium and treat with IV magnesium while in the hospital. Stop Colace and MiraLAX. Rhabdo - resolved, -CK has normalized -Renal function is improving -Continue to monitor. Metabolic encephalopathy -resolved -Mentation now is likely secondary to longstanding dementia -Placement pending Decubitus bilateral lower extremity -Physical therapy is doing daily dressing changes with Unna boots -Switched to Septra NSTEMI- heparin, plavix, asa started when troponin increase. family is realistic and no transfer will be done -Continue aspirin -Heparin stopped secondary to thrombocytopenia -Likely a type II RI secondary to sepsis -No wall motion abnormalities Pityriasis versicolor- and generalized fungal infection-fluconazole finished Anxiety -ativan 0.5 prn bid added IV Chronic hypomagnesemia -Stop oral magnesium while hospitalized secondary to diarrhea -Supplement as needed ppx Unna boot, aspirin; Lovenox/heparin contraindicated secondary to thr ombocytopenia. Unna boot serves as compression device. full code Hospital stay greater than 96 hours secondary to placement issues, long weekend, slow resolution of sepsis and acute renal insufficiency.
[2021-06-20] MEDS: Enoxaparin 40 MG/0.4 ML Syringe SUBCUT SCH (09:12)
[2021-06-20] MEDS: Potassium Chloride 20 MEQ Tab.ER PO SCH (09:12)
[2021-06-20] MEDS: Magnesium Oxide 400 MG Tab PO SCH ×2 (09:12→20:40)
[2021-06-20] MEDS: Sulfamethoxazole/Trimethoprim 800-160 MG Tab PO SCH ×2 (09:12→20:40)
[2021-06-20] MEDS: Aspirin 81 MG Tab.EC PO SCH (09:12)
[2021-06-20] MEDS: Metoprolol Succinate 50 MG Tab.ER PO SCH (09:12)
[2021-06-20] MEDS: Nystatin Topical Powder 15 GM Bottle TOP SCH ×4 (09:13→20:40)
[2021-06-21] MEDS: Acetaminophen 325 MG Tab PO PRN (00:07)
[2021-06-21] MEDS ORDERED: Iopamidol 755 Mg/ML 100 ML Bottle IVPUSH ONE (08:28)
[2021-06-21] MEDS: LORazepam 2 MG/ML SDV IVPUSH PRN (09:01)
[2021-06-21] MEDS: Magnesium Oxide 400 MG Tab PO SCH ×2 (10:11→20:37)
[2021-06-21] MEDS: Metoprolol Succinate 50 MG Tab.ER PO SCH (10:11)
[2021-06-21] MEDS: Aspirin 81 MG Tab.EC PO SCH (10:11)
[2021-06-21] MEDS: Potassium Chloride 20 MEQ Tab.ER PO SCH (10:14)
[2021-06-21] MEDS: Sulfamethoxazole/Trimethoprim 800-160 MG Tab PO SCH (10:15)
[2021-06-21] MEDS: Nystatin Topical Powder 15 GM Bottle TOP SCH ×4 (10:15→20:37)
[2021-06-21] MEDS: Enoxaparin 40 MG/0.4 ML Syringe SUBCUT SCH (10:15)
[2021-06-21] MEDS: Sodium Chloride 0.9% 10 ML Syringe FLUSH PRN ×2 (10:22→10:42)
--- NOTE | 2021-06-21 14:11 | PCM.PN ---
- General Info Date of Service: 06/21/21 Admission Dx/Problem (Free Text): Admission Diagnosis/Problem Admission Diagnosis/Problem Sepsis Subjective Update: Pt did not sleep much the last two nights. This morning she receive 0.5mg IV ativan prior to going for a CTA chest to r/o P.E At the time of my interview she was very sleepy and barely arousable. - Patient Data Vitals - Most Recent: Last Vital Signs Temp 98.2 F 06/21/21 10:13 Pulse 57 L 06/21/21 10:13 Resp 18 06/21/21 10:13 BP 150/84 H 06/21/21 10:13 Pulse Ox 92 L 06/21/21 10:13 Weight - Most Recent: 235 lb 9.6 oz I&O - Last 24 Hours: Intake & Output 06/20/21 06/21/21 06/21/21 22:59 06:59 14:59 Intake Total 1070 400 Output Total 600 1500 Balance 470 -1100 Lab Results Last 24 Hours: Laboratory Results - last 24 hr 06/21/21 06/21/21 06/21/21 Range/Units 04:44 04:44 04:44 WBC 7.82 (3.98-10.04) K/mm3 RBC 3.87 L (3.98-5.22) M/mm3 Hgb 11.7 (11.2-15.7) gm/dl Hct 36.6 (34.1-44.9) % MCV 94.6 (79.4-94.8) fl MCH 30.2 (25.6-32.2) pg MCHC 32.0 L (32.2-35.5) g/dl RDW Std Deviation 50.2 H (36.4-46.3) fL Plt Count 185 (182-369) K/mm3 MPV 10.9 (9.4-12.3) fl Neut % (Auto) 39.8 (34.0-71.1) % Lymph % (Auto) 40.7 (19.3-51.7) % Hettinger % (Auto) 15.1 H (4.7-12.5) % Eos % (Auto) 3.2 (0.7-5.8) Baso % (Auto) 0.3 (0.1-1.2) % Neut # (Auto) 3.12 (1.56-6.13) K/mm3 Lymph # (Auto) 3.18 (1.18-3.74) K/mm3 Hettinger # (Auto) 1.18 H (0.24-0.36) K/mm3 Eos # (Auto) 0.25 (0.04-0.36) K/mm3 Baso # (Auto) 0.02 (0.01-0.08) K/mm3 D-Dimer, Quantitative 2.52 H (0.19-0.50) mg/L Sodium 137 (136-145) mEq/L Potassium 4.6 (3.5-5.1) mEq/L Chloride 105 (98-107) mEq/L Carbon Dioxide 30 (21-32) mEq/L Anion Gap 6.6 (5-15) BUN 29 H (7-18) mg/dL Creatinine 1.3 H (0.55-1.02) mg/dL Est Cr Clr Drug Dosing 31.29 mL/min Estimated GFR (MDRD) 40 (>60) mL/min BUN/Creatinine Ratio 22.3 H (14-18) Glucose 98 (70-99) mg/dL Calcium 8.9 (8.5-10.1) mg/dL Phosphorus 3.2 (2.6-4.7) mg/dL Magnesium 2.0 (1.8-2.4) mg/dL Total Bilirubin 0.7 (0.2-1.0) mg/dL AST 22 (15-37) U/L ALT 29 (14-59) U/L Alkaline Phosphatase 166 H (46-116) U/L C-Reactive Protein 0.7 (<1.0) mg/dL Total Protein 5.3 L (6.4-8.2) g/dl Albumin 2.3 L (3.4-5.0) g/dl Globulin 3.0 gm/dL Albumin/Globulin Ratio 0.8 L (1-2) Med Orders - Current: Current Medications Acetaminophen (Acetaminophen 325 Mg Tab) 650 mg PO Q4H PRN PRN Reason: Pain (Mild 1-3)/fever Last Admin: 06/21/21 00:07 Dose: 650 mg Documented by: Acetaminophen (Acetaminophen 650 Mg Supp) 650 mg RECTAL Q4H PRN PRN Reason: Fever Last Admin: 06/12/21 18:39 Dose: 650 mg Documented by: Aspirin (Aspirin 81 Mg Tab.Ec) 81 mg PO DAILY [facility] Last Admin: 06/21/21 10:11 Dose: 81 mg Documented by: Docusate Sodium (Docusate Sodium 100 Mg Cap) 100 mg PO Q12H PRN PRN Reason: Constipation Last Admin: 06/19/21 20:37 Dose: 100 mg Documented by: Enoxaparin Sodium (Enoxaparin 40 Mg/0.4 Ml Syringe) 40 mg SUBCUT DAILY [facility] Last Admin: 06/21/21 10:15 Dose: 40 mg Documented by: Lorazepam (Lorazepam 2 Mg/Ml Sdv) 0.5 mg IVPUSH BID PRN PRN Reason: Anxiety Last Admin: 06/21/21 09:01 Dose: 0.5 mg Documented by: Magnesium Oxide (Magnesium Oxide 400 Mg Tab) 400 mg PO BID [facility] Last Admin: 06/21/21 10:11 Dose: 400 mg Documented by: Metoprolol Succinate (Metoprolol Succinate 50 Mg Tab.Er) 50 mg PO DAILY [facility] Last Admin: 06/21/21 10:11 Dose: 50 mg Documented by: Nystatin (Nystatin Topical Powder 15 Gm Bottle) 0 gm TOP QID [facility] Last Admin: 06/21/21 10:15 Dose: 1 applic Documented by: Ondansetron HCl (Ondansetron 4 Mg Tab.Dis) 4 mg PO Q4H PRN PRN Reason: nausea, able to take PO Potassium Chloride (Potassium Chloride 20 Meq Tab.Er) 20 meq PO DAILY [facility] Last Admin: 06/21/21 10:14 Dose: 20 meq Documented by: Sodium Chloride (Sodium Chloride 0.9% 10 Ml Syringe) 10 ml FLUSH ASDIRECTED PRN PRN Reason: Keep Vein Open Last Admin: 06/21/21 10:42 Dose: 10 ml Documented by: Temazepam (Temazepam 7.5 Mg Cap) 7.5 mg PO BEDTIME PRN PRN Reason: Sleep Tramadol HCl (Tramadol 50 Mg Tab) 50 mg PO Q6H PRN PRN Reason: Pain Last Admin: 06/14/21 18:48 Dose: 50 mg Documented by: Trimethoprim/Sulfamethoxazole (Sulfamethoxazole/Trimethoprim 800-160 Mg Tab) 1 tab PO BID [facility] Last Admin: 06/21/21 10:15 Dose: 1 tab Documented by: Discontinued Medications Aspirin (Aspirin 325 Mg Tab.Ec) 325 mg PO ONETIME ONE Stop: 06/12/21 22:46 Last Admin: 06/12/21 23:23 Dose: 325 mg Documented by: Clopidogrel Bisulfate (Clopidogrel 75 Mg Tab) 300 mg PO ONETIME ONE Stop: 06/12/21 22:46 Last Admin: 06/12/21 23:23 Dose: 300 mg Documented by: Diphenhydramine HCl (Diphenhydramine 50 Mg/Ml Sdv) 50 mg IVPUSH ONETIME PRN PRN Reason: hypersensitivity reaction Stop: 06/18/21 20:00 Docusate Sodium (Docusate Sodium 100 Mg Cap) 100 mg PO BID [facility] Last Admin: 06/14/21 08:54 Dose: Not Given Documented by: Enoxaparin Sodium (Enoxaparin 40 Mg/0.4 Ml Syringe) 40 mg SUBCUT DAILY [facility] Last Admin: 06/15/21 08:05 Dose: 40 mg Documented by: Epinephrine HCl (Epinephrine 1 Mg/Ml Sdv) 0.3 mg IM ONETIME PRN PRN Reason: hypersensitivity reaction Stop: 06/18/21 20:00 Famotidine (Famotidine 20 Mg/2 Ml Sdv) 20 mg IVPUSH BID [facility] Last Admin: 06/14/21 08:23 Dose: 20 mg Documented by: Famotidine (Famotidine 20 Mg/2 Ml Sdv) 20 mg IVPUSH ONETIME PRN PRN Reason: hypersensitivity reaction Stop: 06/18/21 20:00 Furosemide (Furosemide 20 Mg Tab) 20 mg PO DAILY PRN PRN Reason: Edema Furosemide (Furosemide 40 Mg/4 Ml Vial) 40 mg IVPUSH TID [facility] Last Admin: 06/13/21 08:37 Dose: 40 mg Documented by: Furosemide (Furosemide 20 Mg/2 Ml Vial) 20 mg IVPUSH DAILY [facility] Last Admin: 06/15/21 08:04 Dose: 20 mg Documented by: Heparin Sodium (Porcine) (Heparin Sodium 5,000 Units/Ml Vial) 5,000 units SUBCUT Q8H [facility] Last Admin: 06/12/21 18:38 Dose: 5,000 units Documented by: Heparin Sodium (Porcine) (Heparin Sodium 5,000 Units/Ml Vial) 4,000 units IVPUSH ONETIME ONE Stop: 06/12/21 23:21 Last Admin: 06/13/21 00:15 Dose: 4,000 units Documented by: Sodium Chloride (Normal Saline) 1,000 mls @ 999 mls/hr IV ONETIME ONE; Protocol Stop: 06/12/21 16:28 Last Admin: 06/12/21 15:46 Dose: 999 mls/hr Documented by: Ceftriaxone Sodium 2 gm/ (Sodium Chloride) 100 mls @ 200 mls/hr IV ONETIME ONE Stop: 06/12/21 16:52 Last Admin: 06/12/21 16:28 Dose: 200 mls/hr Documented by: Ceftriaxone Sodium 2 gm/ (Sodium Chloride) 100 mls @ 200 mls/hr IV Q24H [facility] Vancomycin HCl 2 gm/ Sodium (Chloride) 500 mls @ 250 mls/hr IV ONETIME ONE Stop: 06/12/21 22:59 Last Admin: 06/12/21 22:01 Dose: 250 mls/hr Documented by: Vancomycin HCl 1.25 gm/ Sodium (Chloride) 250 mls @ 250 mls/hr IV Q12H [facility] Heparin Sodium/Dextrose (Heparin 25,000 Units In D5w 500 Ml) 25,000 units in 500 mls @ 20 mls/hr IV TITRATE [facility]; Protocol Last Titration: 06/14/21 04:08 Dose: 4.8 mls/hr Documented by: Piperacillin Sod/Tazobactam (Sod 3.375 gm/ Sodium Chloride) 100 mls @ 25 mls/hr IV Q8H [facility] Fluconazole/Sodium Chloride (200 mg/ Premix) 100 mls @ 100 mls/hr IV Q24H [facility] Last Admin: 06/15/21 08:04 Dose: 100 mls/hr Documented by: Piperacillin Sod/Tazobactam (Sod 4.5 gm/ Sodium Chloride) 100 mls @ 200 mls/hr IV ONETIME ONE Stop: 06/13/21 08:29 Last Admin: 06/13/21 08:37 Dose: 200 mls/hr Documented by: Piperacillin Sod/Tazobactam (Sod 4.5 gm/ Sodium Chloride) 100 mls @ 25 mls/hr IV Q8H [facility] Last Admin: 06/15/21 15:19 Dose: 25 mls/hr Documented by: Vancomycin HCl 1 gm/Vancomycin HCl 250 mg/ Sodium Chloride 250 mls @ 250 mls/hr IV Q12H [facility] Last Admin: 06/14/21 20:51 Dose: 250 mls/hr Documented by: Magnesium Sulfate 2 gm/ Premix 50 mls @ 25 mls/hr IV ONETIME ONE Stop: 06/13/21 11:01 Last Admin: 06/13/21 09:52 Dose: 25 mls/hr Documented by: Potassium Chloride 10 meq/ (Premix) 100 mls @ 100 mls/hr IV ONETIME ONE Stop: 06/13/21 10:27 Last Admin: 06/13/21 11:29 Dose: Not Given Documented by: Potassium Chloride 10 meq/ (Premix) 100 mls @ 100 mls/hr IV ONETIME ONE Stop: 06/13/21 11:59 Potassium Chloride 10 meq/ (Premix) 100 mls @ 100 mls/hr IV ONETIME ONE Stop: 06/13/21 13:59 Last Admin: 06/13/21 12:19 Dose: 100 mls/hr Documented by: Sodium Chloride (Normal Saline) 150 mls @ 50 mls/hr IV ASDIRECTED [facility] Last Admin: 06/13/21 12:19 Dose: 50 mls/hr Documented by: Magnesium Sulfate 4 gm/ Premix 50 mls @ 12.5 mls/hr IV ONETIME ONE Stop: 06/14/21 13:47 Last Admin: 06/14/21 10:28 Dose: 12.5 mls/hr Documented by: Albumin Human (Flexbumin 25%) 12.5 gm in 50 mls @ 100 mls/hr IV ONETIME ONE Stop: 06/15/21 09:20 Last Admin: 06/15/21 09:40 Dose: 80 mls/hr Documented by: Albumin Human (Flexbumin 25%) 12.5 gm in 50 mls @ 100 mls/hr IV ONETIME ONE Stop: 06/15/21 16:29 Last Admin: 06/15/21 15:12 Dose: 100 mls/hr Documented by: Lactated Ringer's (Ringers, Lactated) 1,000 mls @ 75 mls/hr IV ASDIRECTED [facility] Last Admin: 06/15/21 14:56 Dose: 75 mls/hr Documented by: Lactated Ringer's (Ringers, Lactated) 1,000 mls @ 75 mls/hr IV ASDIRECTED [facility] Last Admin: 06/16/21 23:04 Dose: 75 mls/hr Documented by: Magnesium Sulfate 2 gm/ Premix 50 mls @ 25 mls/hr IV ONETIME ONE Stop: 06/16/21 11:04 Last Admin: 06/16/21 09:29 Dose: 25 mls/hr Documented by: Magnesium Sulfate 4 gm/ Premix 50 mls @ 12.5 mls/hr IV ONETIME ONE Stop: 06/17/21 12:34 Last Admin: 06/17/21 09:44 Dose: 12.5 mls/hr Documented by: Magnesium Sulfate 2 gm/ Premix 50 mls @ 25 mls/hr IV ONETIME ONE Stop: 06/18/21 12:40 Last Admin: 06/18/21 10:50 Dose: 25 mls/hr Documented by: CASIRIVIMAB/IMDEVIMAB 10 ml/ (Sodium Chloride) 110 mls @ 220 mls/hr IV ONETIME ONE Stop: 06/18/21 14:59 Last Admin: 06/18/21 14:33 Dose: 220 mls/hr Documented by: Magnesium Sulfate 4 gm/ Premix 50 mls @ 12.5 mls/hr IV ONETIME ONE Stop: 06/20/21 12:10 Last Admin: 06/20/21 09:13 Dose: 12.5 mls/hr Documented by: Ibuprofen (Ibuprofen 600 Mg Tab) 600 mg PO Q6H PRN PRN Reason: Pain/Fever Last Admin: 06/20/21 18:46 Dose: 600 mg Documented by: Iopamidol (Iopamidol 755 Mg/Ml 100 Ml Bottle) 100 ml IVPUSH ONETIME ONE Stop: 06/21/21 08:29 Last Admin: 06/21/21 09:45 Dose: 100 ml Documented by: Magnesium Oxide (Magnesium Oxide 400 Mg Tab) 400 mg PO BID [facility] Last Admin: 06/14/21 08:23 Dose: 400 mg Documented by: Methylprednisolone Sodium Succinate (Methylprednisolone Sodium Succinate 125 Mg/2 Ml Sdv) 125 mg IVPUSH ONETIME PRN PRN Reason: hypersensitivity reaction Stop: 06/18/21 20:00 Metoprolol Succinate (Metoprolol Succinate 50 Mg Tab.Er) 50 mg PO DAILY [facility] Last Admin: 06/13/21 08:38 Dose: 50 mg Documented by: Multi-Ingred Cream/Lotion/Oil/Oint (Zinc Oxide 20% Oint 28.35 Gm Tube) 1 gm TOP Q1H [facility] Last Admin: 06/13/21 12:04 Dose: Not Given Documented by: Multi-Ingred Cream/Lotion/Oil/Oint (Zinc Oxide 20% Oint 28.35 Gm Tube) 1 gm TOP DAILY [facility] Stop: 06/14/21 09:01 Last Admin: 06/14/21 08:24 Dose: 1 gm Documented by: Neomycin/Polymyxin/Bacitracin (Bacitracin/Neomycin/Polymyxin B Oint 15 Gm Tube) 0 gm TOP BID [facility] Last Admin: 06/16/21 11:50 Dose: Not Given Documented by: Oxycodone HCl (Oxycodone 5 Mg Tab) 5 mg PO Q6H PRN PRN Reason: Pain Pharmacy Consult (Pharmacy Consult Order) 1 each .XX ASDIRECTED [facility] Polyethylene Glycol (Polyethylene Glycol 3350 Powder 17 Gm Packet) 17 gm PO DAILY [facility] Last Admin: 06/14/21 08:55 Dose: Not Given Documented by: Potassium Chloride (Potassium Chloride 20 Meq Tab.Er) 40 meq PO ONETIME ONE Stop: 06/13/21 09:29 Last Admin: 06/13/21 10:37 Dose: 40 meq Documented by: Potassium Chloride (Potassium Chloride 20 Meq Tab.Er) 20 meq PO ONETIME ONE Stop: 06/14/21 09:36 Last Admin: 06/14/21 10:28 Dose: 20 meq Documented by: Potassium Chloride (Potassium Chloride 20 Meq Tab.Er) 20 meq PO ONETIME ONE Stop: 06/15/21 17:01 Last Admin: 06/15/21 18:30 Dose: 20 meq Documented by: Sodium Chloride (Sodium Chloride 0.9% 10 Ml Syringe) 30 ml FLUSH ASDIRECTED [facility] Stop: 06/18/21 20:00 Vancomycin HCl (Pharmacy To Dose - Vancomycin) 1 dose .XX ASDIRECTED [facility] Vancomycin HCl (Vancomycin 1 Gm Sdv) Confirm Administered Dose 2 gm .ROUTE .STK- MED ONE Stop: 06/12/21 21:43 Last Admin: 06/12/21 21:55 Dose: Not Given Documented by: - Exam Urinary Catheter Total Time: 1Days 23Hours Physical Findings Comments:: General: Very sleepy. Had trouble staying awake through the exam. Elderly female in no distress. HEENT: NC, AT, PERRLA, EOMI CVS: S1S2 appreciated. RRR lungs: clear bilaterally with no rales or wheezes pa: soft, non tender. bowel sounds present ext: no clubbing or cyanosis. Bilateral lower extremity lymphedema with dilma boots. neuro: moves all extremities when awake - Patient Data Lab Results Last 24 hrs: Laboratory Results - last 24 hr 06/21/21 06/21/21 06/21/21 Range/Units 04:44 04:44 04:44 WBC 7.82 (3.98-10.04) K/mm3 RBC 3.87 L (3.98-5.22) M/mm3 Hgb 11.7 (11.2-15.7) gm/dl Hct 36.6 (34.1-44.9) % MCV 94.6 (79.4-94.8) fl MCH 30.2 (25.6-32.2) pg MCHC 32.0 L (32.2-35.5) g/dl RDW Std Deviation 50.2 H (36.4-46.3) fL Plt Count 185 (182-369) K/mm3 MPV 10.9 (9.4-12.3) fl Neut % (Auto) 39.8 (34.0-71.1) % Lymph % (Auto) 40.7 (19.3-51.7) % [place] % (Auto) 15.1 H (4.7-12.5) % Eos % (Auto) 3.2 (0.7-5.8) Baso % (Auto) 0.3 (0.1-1.2) % Neut # (Auto) 3.12 (1.56-6.13) K/mm3 Lymph # (Auto) 3.18 (1.18-3.74) K/mm3 [place]er # (Auto) 1.18 H (0.24-0.36) K/mm3 Eos # (Auto) 0.25 (0.04-0.36) K/mm3 Baso # (Auto) 0.02 (0.01-0.08) K/mm3 D-Dimer, Quantitative 2.52 H (0.19-0.50) mg/L Sodium 137 (136-145) mEq/L Potassium 4.6 (3.5-5.1) mEq/L Chloride 105 (98-107) mEq/L Carbon Dioxide 30 (21-32) mEq/L Anion Gap 6.6 (5-15) BUN 29 H (7-18) mg/dL Creatinine 1.3 H (0.55-1.02) mg/dL Est Cr Clr Drug Dosing 31.29 mL/min Estimated GFR (MDRD) 40 (>60) mL/min BUN/Creatinine Ratio 22.3 H (14-18) Glucose 98 (70-99) mg/dL Calcium 8.9 (8.5-10.1) mg/dL Phosphorus 3.2 (2.6-4.7) mg/dL Magnesium 2.0 (1.8-2.4) mg/dL Total Bilirubin 0.7 (0.2-1.0) mg/dL AST 22 (15-37) U/L ALT 29 (14-59) U/L Alkaline Phosphatase 166 H (46-116) U/L C-Reactive Protein 0.7 (<1.0) mg/dL Total Protein 5.3 L (6.4-8.2) g/dl Albumin 2.3 L (3.4-5.0) g/dl Globulin 3.0 gm/dL Albumin/Globulin Ratio 0.8 L (1-2) Result Diagrams: 06/21/21 04:44 06/21/21 04:44 Sepsis Event Note - Evaluation Sepsis Screening Result: No Definite Risk - Focused Exam Vital Signs: Vital Signs Temp Pulse Resp BP Pulse Ox 06/21/21 10:13 98.2 F 57 L 18 150/84 H 92 L 06/21/21 10:11 57 L 150/84 H - Problem List & Annotations (1) Acute kidney injury SNOMED Code(s): 50764656, 25696406 Code(s): N17.9 - ACUTE KIDNEY FAILURE, UNSPECIFIED Status: Acute Current Visit: Yes (2) UTI (urinary tract infection) SNOMED Code(s): 54727323 Code(s): N39.0 - URINARY TRACT INFECTION, SITE NOT SPECIFIED Status: Acute Current Visit: Yes Qualifiers: Urinary tract infection type: site unspecified Hematuria presence: with hematuria Qualified Code(s): N39.0 - Urinary tract infection, site not specified; R31.9 - Hematuria, unspecified - Problem List Review Problem List Initiated/Reviewed/Updated: Yes - Plan Plan:: Generalized weakness and debility Pt will need more PT/OT and eventually SNF placement Protein calorie malnutrition nutritional supplementation Dementia Pt was seen by speech therapy and as per her cognitive eval she has at least mild to moderated cognitive decline in her executive functions. She will benefit from a SNF placement and hopefully her mental status improves as she recovers from her recent infection and sepsis. Covid positive Patient is asymptomatic. Screening done for discharge to long-term care facility. Question if patient may have had symptomatic Covid over 2 weeks ago per her history. -Reg[facility]-CoV given I spoke with Ivania her sister who is her healthcare proxy to provide information about [facility] for Yana Seo. I have offered to them the "fax sheet for patients and parents/caregivers" for [facility] to read and review. I stated that therapy has been approved by an emergency use authorization process and has not fully been FDA reviewed or approved. I shared potential risks from the therapy including anaphylaxis and hypotension. I discussed there are other potential treatment options that are currently not FDA approved to treat COVID- 19. Offered opportunity to ask questions and all questions were answered. Ivania voiced understanding and agreed to proceed with treatment for Yana Seo sepsis without shock-elevated white count - resolved. mrsa positive nasal swab. added fluconazole due to the severalty of a pityriasis versicolor and appearance on genital rash with satellite lesions -Fevers have resolved -White count now normal -Currently on Septra -Finished fluconazole -Urine culture positive for Klebsiella pneumoniae sensitive to Septra UTI acute- resolved -history of incontinence -Blood cultures negative -Urine culture: Klebsiella pneumonia - multi-sensitive -Switched to Septra ?acute CHF exacerbation-Pulmonary congestion on bilateral cxr, bilateral noted on chest x-ray, 1 L of fluids was given in the ER History of questionable CHF, when CPK returns may need to alter fluids and diuresis. -Echocardiogram: 1. Left ventricular ejection fraction, by visual estimation, is 60 to 65%. 2. Normal left ventricular systolic function. 3. Mild septal left ventricular hypertrophy. 4. Normal pattern of LV diastolic filling. 5. Mildly dilated left atrium. 6. Mildly dilated right atrium. 7. Mild mitral valve regurgitation. 8. Trace tricuspid valve regurgitation. 9. The right ventricular systolic pressure is probably normal. 10. No regional wall motion abnormalities -Lower extremity edema is most likely secondary to dependent edema -Kidney function slightly improved -Lasix on hold -Stop fluids Elevated troponin-likely secondary to troponin leak, -Echocardiogram showed no wall motion abnormalities -Plt now 80,000 -Stopped Lovenox Nausea and vomiting-resolved Elevated LFT-improved: Concern that it may be associated with rhabdomyolysis with pending CPK, or secondary to CHF exacerbation with BNP pending, pending overall work-up. Right upper quadrant ultrasound performed: Large 4.5 cm gallstone with increased common bile duct dilatation at 1.1 cm. This biliary duct dilatation is an interval change from prior exam. -Total bilirubin returned to normal of 0.9 and albumin improved to 2.3 enzymes improved. -Enzymes are improving, ALT is improving is still elevated at 229. -She is not a surgical candidate at this time and she is not symptomatic. -Concern Diflucan could have caused worsening of LFTs. -Liver enzymes have improved -Diflucan completed -Encouraged improved diet. Dietary consult Thrombocytopenia -likely secondary to sepsis and chronic illness -Stop Lovenox -Continue aspirin at this time -Platelets slightly improved at 85,000 Hypertension-continue metoprolol. [place] Asthma-asymptomatic, will add as needed albuterol if necessary Chronic constipation-stop Colace and MiraLAX because of current diarrhea -Patient is having loose and watery stools. Review of her old chart shows that it is likely chronic now. Will stop her oral magnesium and treat with IV magnesium while in the hospital. Stop Colace and MiraLAX. Rhabdomyolysis - resolved, -CK has normalized -Renal function is improving -Continue to monitor. Metabolic encephalopathy -resolved -Mentation now is likely secondary to longstanding dementia -Placement pending Decubitus bilateral lower extremity -Physical therapy is doing daily dressing changes with Unna boots -Switched to Septra NSTEMI- heparin, plavix, asa started when troponin increase. family is realistic and no transfer will be done -Continue aspirin -Heparin stopped secondary to thrombocytopenia -Likely a type II [place] secondary to sepsis -No wall motion abnormalities Pityriasis versicolor- and generalized fungal infection-fluconazole finished Anxiety -ativan 0.5 prn bid added IV Chronic hypomagnesemia -Stop oral magnesium while hospitalized secondary to diarrhea -Supplement as needed ppx Unna boot, aspirin; Lovenox/heparin contraindicated secondary to thrombocytopenia. Unna boot serves as compression device. full code Hospital stay greater than 96 hours secondary to placement issues, long weekend, slow resolution of sepsis and acute renal insufficiency.
[2021-06-22] MEDS: traMADol 50 MG Tab PO PRN ×2 (01:28→13:20)
--- NOTE | 2021-06-22 07:37 | CT ---
CT chest Technique: Multiple axial sections through the chest were obtained. Intravenous contrast was utilized. Study has been performed as a pulmonary angiogram protocol. Comparison: No prior chest CT study is available, prior chest x-ray of 06/12/21. Findings: Pulmonary arteries are not optimally opacified. No discrete findings of pulmonary embolism are seen. Thoracic aorta shows atherosclerotic calcification with no aneurysm. Small lymph nodes are seen within the mediastinum which are felt to be within normal limits. No axillary adenopathy is seen. Minimal right-sided pleural effusion is seen as well as very small left-sided pleural effusion. Patchy groundglass appearance is noted within both lungs. Slight atelectasis is seen within the posterior left lung. Heart is enlarged with mild coronary artery calcification. Visualized upper abdominal structures shows nothing acute. Bone window settings were reviewed which show scattered disc space narrowing and endplate spurring within the spine. No acute osseous abnormality is appreciated. Impression: 1. Heart is enlarged. Minimal bilateral pleural effusions are seen. There is slight groundglass appearance seen. Please correlate if patient has any symptoms to suggest mild CHF. 2. Pulmonary arteries are not optimally opacified. No discrete findings of pulmonary embolism are seen. 3. Slight atelectasis within the left lung base. Diagnostic code #3 I agree with preliminary report from [facility], finalized on 06/21/21, 11:44 AM CDT, code 1
[2021-06-22] MEDS: Aspirin 81 MG Tab.EC PO SCH (08:29)
[2021-06-22] MEDS: Nystatin Topical Powder 15 GM Bottle TOP SCH ×4 (08:29→20:32)
[2021-06-22] MEDS: Enoxaparin 40 MG/0.4 ML Syringe SUBCUT SCH (08:29)
[2021-06-22] MEDS: Magnesium Oxide 400 MG Tab PO SCH ×2 (08:29→20:32)
[2021-06-22] MEDS: Metoprolol Succinate 50 MG Tab.ER PO SCH (08:30)
[2021-06-22] MEDS: Potassium Chloride 20 MEQ Tab.ER PO SCH (08:30)
--- NOTE | 2021-06-22 14:14 | PCM.PN ---
- General Info Date of Service: 06/22/21 Admission Dx/Problem (Free Text): Admission Diagnosis/Problem Admission Diagnosis/Problem Sepsis Subjective Update: Pt is more awake and talkative today. She also says that she is willing to participate in PT session. She denies having any fevers or chills. She also denies feeling dyspneic and does not need any oxygen to keep her sats > 90% - Patient Data Vitals - Most Recent: Last Vital Signs Temp 97.7 F 06/22/21 11:29 Pulse 54 L 06/22/21 11:29 Resp 20 06/22/21 11:29 BP 137/88 06/22/21 11:29 Pulse Ox 97 06/22/21 11:29 Weight - Most Recent: 230 lb 6.4 oz I&O - Last 24 Hours: Intake & Output 06/21/21 06/22/21 06/22/21 22:59 06:59 14:59 Intake Total 780 500 440 Output Total 500 900 Balance 280 -400 440 Med Orders - Current: Current Medications Acetaminophen (Acetaminophen 325 Mg Tab) 650 mg PO Q4H PRN PRN Reason: Pain (Mild 1-3)/fever Last Admin: 06/21/21 00:07 Dose: 650 mg Documented by: Acetaminophen (Acetaminophen 650 Mg Supp) 650 mg RECTAL Q4H PRN PRN Reason: Fever Last Admin: 06/12/21 18:39 Dose: 650 mg Documented by: Aspirin (Aspirin 81 Mg Tab.Ec) 81 mg PO DAILY [facility] Last Admin: 06/22/21 08:29 Dose: 81 mg Documented by: Docusate Sodium (Docusate Sodium 100 Mg Cap) 100 mg PO Q12H PRN PRN Reason: Constipation Last Admin: 06/19/21 20:37 Dose: 100 mg Documented by: Enoxaparin Sodium (Enoxaparin 40 Mg/0.4 Ml Syringe) 40 mg SUBCUT DAILY [facility] Last Admin: 06/22/21 08:29 Dose: 40 mg Documented by: Lorazepam (Lorazepam 2 Mg/Ml Sdv) 0.5 mg IVPUSH BID PRN PRN Reason: Anxiety Last Admin: 06/21/21 09:01 Dose: 0.5 mg Documented by: Magnesium Oxide (Magnesium Oxide 400 Mg Tab) 400 mg PO BID [facility] Last Admin: 06/22/21 08:29 Dose: 400 mg Documented by: Metoprolol Succinate (Metoprolol Succinate 50 Mg Tab.Er) 50 mg PO DAILY [facility] Last Admin: 06/22/21 08:30 Dose: 50 mg Documented by: Nystatin (Nystatin Topical Powder 15 Gm Bottle) 0 gm TOP QID [facility] Last Admin: 06/22/21 13:19 Dose: 15 applic Documented by: Ondansetron HCl (Ondansetron 4 Mg Tab.Dis) 4 mg PO Q4H PRN PRN Reason: nausea, able to take PO Potassium Chloride (Potassium Chloride 20 Meq Tab.Er) 20 meq PO DAILY [facility] Last Admin: 06/22/21 08:30 Dose: 20 meq Documented by: Sodium Chloride (Sodium Chloride 0.9% 10 Ml Syringe) 10 ml FLUSH ASDIRECTED PRN PRN Reason: Keep Vein Open Last Admin: 06/21/21 10:42 Dose: 10 ml Documented by: Temazepam (Temazepam 7.5 Mg Cap) 7.5 mg PO BEDTIME PRN PRN Reason: Sleep Tramadol HCl (Tramadol 50 Mg Tab) 50 mg PO Q6H PRN PRN Reason: Pain Last Admin: 06/22/21 13:20 Dose: 50 mg Documented by: Discontinued Medications Aspirin (Aspirin 325 Mg Tab.Ec) 325 mg PO ONETIME ONE Stop: 06/12/21 22:46 Last Admin: 06/12/21 23:23 Dose: 325 mg Documented by: Clopidogrel Bisulfate (Clopidogrel 75 Mg Tab) 300 mg PO ONETIME ONE Stop: 06/12/21 22:46 Last Admin: 06/12/21 23:23 Dose: 300 mg Documented by: Diphenhydramine HCl (Diphenhydramine 50 Mg/Ml Sdv) 50 mg IVPUSH ONETIME PRN PRN Reason: hypersensitivity reaction Stop: 06/18/21 20:00 Docusate Sodium (Docusate Sodium 100 Mg Cap) 100 mg PO BID [facility] Last Admin: 06/14/21 08:54 Dose: Not Given Documented by: Enoxaparin Sodium (Enoxaparin 40 Mg/0.4 Ml Syringe) 40 mg SUBCUT DAILY [facility] Last Admin: 06/15/21 08:05 Dose: 40 mg Documented by: Epinephrine HCl (Epinephrine 1 Mg/Ml Sdv) 0.3 mg IM ONETIME PRN PRN Reason: hypersensitivity reaction Stop: 06/18/21 20:00 Famotidine (Famotidine 20 Mg/2 Ml Sdv) 20 mg IVPUSH BID [facility] Last Admin: 06/14/21 08:23 Dose: 20 mg Documented by: Famotidine (Famotidine 20 Mg/2 Ml Sdv) 20 mg IVPUSH ONETIME PRN PRN Reason: hypersensitivity reaction Stop: 06/18/21 20:00 Furosemide (Furosemide 20 Mg Tab) 20 mg PO DAILY PRN PRN Reason: Edema Furosemide (Furosemide 40 Mg/4 Ml Vial) 40 mg IVPUSH TID [facility] Last Admin: 06/13/21 08:37 Dose: 40 mg Documented by: Furosemide (Furosemide 20 Mg/2 Ml Vial) 20 mg IVPUSH DAILY [facility] Last Admin: 06/15/21 08:04 Dose: 20 mg Documented by: Heparin Sodium (Porcine) (Heparin Sodium 5,000 Units/Ml Vial) 5,000 units SUBCUT Q8H [facility] Last Admin: 06/12/21 18:38 Dose: 5,000 units Documented by: Heparin Sodium (Porcine) (Heparin Sodium 5,000 Units/Ml Vial) 4,000 units IVPUSH ONETIME ONE Stop: 06/12/21 23:21 Last Admin: 06/13/21 00:15 Dose: 4,000 units Documented by: Sodium Chloride (Normal Saline) 1,000 mls @ 999 mls/hr IV ONETIME ONE; Protocol Stop: 06/12/21 16:28 Last Admin: 06/12/21 15:46 Dose: 999 mls/hr Documented by: Ceftriaxone Sodium 2 gm/ (Sodium Chloride) 100 mls @ 200 mls/hr IV ONETIME ONE Stop: 06/12/21 16:52 Last Admin: 06/12/21 16:28 Dose: 200 mls/hr Documented by: Ceftriaxone Sodium 2 gm/ (Sodium Chloride) 100 mls @ 200 mls/hr IV Q24H [facility] Vancomycin HCl 2 gm/ Sodium (Chloride) 500 mls @ 250 mls/hr IV ONETIME ONE Stop: 06/12/21 22:59 Last Admin: 06/12/21 22:01 Dose: 250 mls/hr Documented by: Vancomycin HCl 1.25 gm/ Sodium (Chloride) 250 mls @ 250 mls/hr IV Q12H [facility] Heparin Sodium/Dextrose (Heparin 25,000 Units In D5w 500 Ml) 25,000 units in 500 mls @ 20 mls/hr IV TITRATE [facility]; Protocol Last Titration: 06/14/21 04:08 Dose: 4.8 mls/hr Documented by: Piperacillin Sod/Tazobactam (Sod 3.375 gm/ Sodium Chloride) 100 mls @ 25 mls/hr IV Q8H [facility] Fluconazole/Sodium Chloride (200 mg/ Premix) 100 mls @ 100 mls/hr IV Q24H [facility] Last Admin: 06/15/21 08:04 Dose: 100 mls/hr Documented by: Piperacillin Sod/Tazobactam (Sod 4.5 gm/ Sodium Chloride) 100 mls @ 200 mls/hr IV ONETIME ONE Stop: 06/13/21 08:29 Last Admin: 06/13/21 08:37 Dose: 200 mls/hr Documented by: Piperacillin Sod/Tazobactam (Sod 4.5 gm/ Sodium Chloride) 100 mls @ 25 mls/hr IV Q8H [facility] Last Admin: 06/15/21 15:19 Dose: 25 mls/hr Documented by: Vancomycin HCl 1 gm/Vancomycin HCl 250 mg/ Sodium Chloride 250 mls @ 250 mls/hr IV Q12H [facility] Last Admin: 06/14/21 20:51 Dose: 250 mls/hr Documented by: Magnesium Sulfate 2 gm/ Premix 50 mls @ 25 mls/hr IV ONETIME ONE Stop: 06/13/21 11:01 Last Admin: 06/13/21 09:52 Dose: 25 mls/hr Documented by: Potassium Chloride 10 meq/ (Premix) 100 mls @ 100 mls/hr IV ONETIME ONE Stop: 06/13/21 10:27 Last Admin: 06/13/21 11:29 Dose: Not Given Documented by: Potassium Chloride 10 meq/ (Premix) 100 mls @ 100 mls/hr IV ONETIME ONE Stop: 06/13/21 11:59 Potassium Chloride 10 meq/ (Premix) 100 mls @ 100 mls/hr IV ONETIME ONE Stop: 06/13/21 13:59 Last Admin: 06/13/21 12:19 Dose: 100 mls/hr Documented by: Sodium Chloride (Normal Saline) 150 mls @ 50 mls/hr IV ASDIRECTED [facility] Last Admin: 06/13/21 12:19 Dose: 50 mls/hr Documented by: Magnesium Sulfate 4 gm/ Premix 50 mls @ 12.5 mls/hr IV ONETIME ONE Stop: 06/14/21 13:47 Last Admin: 06/14/21 10:28 Dose: 12.5 mls/hr Documented by: Albumin Human (Flexbumin 25%) 12.5 gm in 50 mls @ 100 mls/hr IV ONETIME ONE Stop: 06/15/21 09:20 Last Admin: 06/15/21 09:40 Dose: 80 mls/hr Documented by: Albumin Human (Flexbumin 25%) 12.5 gm in 50 mls @ 100 mls/hr IV ONETIME ONE Stop: 06/15/21 16:29 Last Admin: 06/15/21 15:12 Dose: 100 mls/hr Documented by: Lactated Ringer's (Ringers, Lactated) 1,000 mls @ 75 mls/hr IV ASDIRECTED [facility] Last Admin: 06/15/21 14:56 Dose: 75 mls/hr Documented by: Lactated Ringer's (Ringers, Lactated) 1,000 mls @ 75 mls/hr IV ASDIRECTED [facility] Last Admin: 06/16/21 23:04 Dose: 75 mls/hr Documented by: Magnesium Sulfate 2 gm/ Premix 50 mls @ 25 mls/hr IV ONETIME ONE Stop: 06/16/21 11:04 Last Admin: 06/16/21 09:29 Dose: 25 mls/hr Documented by: Magnesium Sulfate 4 gm/ Premix 50 mls @ 12.5 mls/hr IV ONETIME ONE Stop: 06/17/21 12:34 Last Admin: 06/17/21 09:44 Dose: 12.5 mls/hr Documented by: Magnesium Sulfate 2 gm/ Premix 50 mls @ 25 mls/hr IV ONETIME ONE Stop: 06/18/21 12:40 Last Admin: 06/18/21 10:50 Dose: 25 mls/hr Documented by: CASIRIVIMAB/IMDEVIMAB 10 ml/ (Sodium Chloride) 110 mls @ 220 mls/hr IV ONETIME ONE Stop: 06/18/21 14:59 Last Admin: 06/18/21 14:33 Dose: 220 mls/hr Documented by: Magnesium Sulfate 4 gm/ Premix 50 mls @ 12.5 mls/hr IV ONETIME ONE Stop: 06/20/21 12:10 Last Admin: 06/20/21 09:13 Dose: 12.5 mls/hr Documented by: Ibuprofen (Ibuprofen 600 Mg Tab) 600 mg PO Q6H PRN PRN Reason: Pain/Fever Last Admin: 06/20/21 18:46 Dose: 600 mg Documented by: Iopamidol (Iopamidol 755 Mg/Ml 100 Ml Bottle) 100 ml IVPUSH ONETIME ONE Stop: 06/21/21 08:29 Last Admin: 06/21/21 09:45 Dose: 100 ml Documented by: Magnesium Oxide (Magnesium Oxide 400 Mg Tab) 400 mg PO BID [facility] Last Admin: 06/14/21 08:23 Dose: 400 mg Documented by: Methylprednisolone Sodium Succinate (Methylprednisolone Sodium Succinate 125 Mg/2 Ml Sdv) 125 mg IVPUSH ONETIME PRN PRN Reason: hypersensitivity reaction Stop: 06/18/21 20:00 Metoprolol Succinate (Metoprolol Succinate 50 Mg Tab.Er) 50 mg PO DAILY [facility] Last Admin: 06/13/21 08:38 Dose: 50 mg Documented by: Multi-Ingred Cream/Lotion/Oil/Oint (Zinc Oxide 20% Oint 28.35 Gm Tube) 1 gm TOP Q1H [facility] Last Admin: 06/13/21 12:04 Dose: Not Given Documented by: Multi-Ingred Cream/Lotion/Oil/Oint (Zinc Oxide 20% Oint 28.35 Gm Tube) 1 gm TOP DAILY [facility] Stop: 06/14/21 09:01 Last Admin: 06/14/21 08:24 Dose: 1 gm Documented by: Neomycin/Polymyxin/Bacitracin (Bacitracin/Neomycin/Polymyxin B Oint 15 Gm Tube) 0 gm TOP BID [facility] Last Admin: 06/16/21 11:50 Dose: Not Given Documented by: Oxycodone HCl (Oxycodone 5 Mg Tab) 5 mg PO Q6H PRN PRN Reason: Pain Pharmacy Consult (Pharmacy Consult Order) 1 each .XX ASDIRECTED [facility] Polyethylene Glycol (Polyethylene Glycol 3350 Powder 17 Gm Packet) 17 gm PO DAILY [facility] Last Admin: 06/14/21 08:55 Dose: Not Given Documented by: Potassium Chloride (Potassium Chloride 20 Meq Tab.Er) 40 meq PO ONETIME ONE Stop: 06/13/21 09:29 Last Admin: 06/13/21 10:37 Dose: 40 meq Documented by: Potassium Chloride (Potassium Chloride 20 Meq Tab.Er) 20 meq PO ONETIME ONE Stop: 06/14/21 09:36 Last Admin: 06/14/21 10:28 Dose: 20 meq Documented by: Potassium Chloride (Potassium Chloride 20 Meq Tab.Er) 20 meq PO ONETIME ONE Stop: 06/15/21 17:01 Last Admin: 06/15/21 18:30 Dose: 20 meq Documented by: Sodium Chloride (Sodium Chloride 0.9% 10 Ml Syringe) 30 ml FLUSH ASDIRECTED [facility] Stop: 06/18/21 20:00 Trimethoprim/Sulfamethoxazole (Sulfamethoxazole/Trimethoprim 800-160 Mg Tab) 1 tab PO BID [facility] Last Admin: 06/21/21 10:15 Dose: 1 tab Documented by: Vancomycin HCl (Pharmacy To Dose - Vancomycin) 1 dose .XX ASDIRECTED [facility] Vancomycin HCl (Vancomycin 1 Gm Sdv) Confirm Administered Dose 2 gm .ROUTE .STK- MED ONE Stop: 06/12/21 21:43 Last Admin: 06/12/21 21:55 Dose: Not Given Documented by: - Exam Urinary Catheter Total Time: 1Days 23Hours Physical Findings Comments:: General: Elderly female. In no distress CVS: S1S2 appreciated. RRR lungs: clear bilaterally pa: soft, non tender. bowel sounds present ext: no clubbing or cyanosis. Pt has lymphedema in both lower extremities. She has some scabbed over dry skin wounds at the back of both her ankles. psych: stable mood and affect. - Patient Data Result Diagrams: 06/21/21 04:44 06/21/21 04:44 Sepsis Event Note - Evaluation Sepsis Screening Result: No Definite Risk - Focused Exam Vital Signs: Vital Signs Temp Pulse Resp BP Pulse Ox 06/22/21 11:29 97.7 F 54 L 20 137/88 97 06/22/21 08:30 63 155/70 H 06/22/21 07:29 97.9 F 63 20 155/70 H 92 L - Problem List & Annotations (1) Acute kidney injury SNOMED Code(s): 04923539, 68371227 Code(s): N17.9 - ACUTE KIDNEY FAILURE, UNSPECIFIED Status: Acute Current Visit: Yes (2) UTI (urinary tract infection) SNOMED Code(s): 56435659 Code(s): N39.0 - URINARY TRACT INFECTION, SITE NOT SPECIFIED Status: Acute Current Visit: Yes Qualifiers: Urinary tract infection type: site unspecified Hematuria presence: with hematuria Qualified Code(s): N39.0 - Urinary tract infection, site not specified; R31.9 - Hematuria, unspecified - Problem List Review Problem List Initiated/Reviewed/Updated: Yes - Plan Plan:: Generalized weakness and debility Pt will need more PT/OT and eventually SNF placement Protein calorie malnutrition nutritional supplementation Dementia Pt was seen by speech therapy and as per her cognitive eval she has at least mild to moderated cognitive decline in her executive functions. She will benefit from a SNF placement and hopefully her mental status improves as she recovers from her recent infection and sepsis. Covid positive Patient is asymptomatic. Screening done for discharge to long-term care facility. Question if patient may have had symptomatic Covid over 2 weeks ago per her history. -Regen-CoV given I spoke with Ivania her sister who is her healthcare proxy to provide information about [facility] for Yana Seo. I have offered to them the "fax sheet for patients and parents/caregivers" for [facility] to read and review. I stated that therapy has been approved by an emergency use authorization process and has not fully been FDA reviewed or approved. I shared potential risks from the therapy including anaphylaxis and hypotension. I discussed there are other potential treatment options that are currently not FDA approved to treat COVID- 19. Offered opportunity to ask questions and all questions were answered. Ivania voiced understanding and agreed to proceed with treatment for Yana Seo sepsis without shock-elevated white count - resolved. mrsa positive nasal swab. added fluconazole due to the severalty of a pityriasis versicolor and appearance on genital rash with satellite lesions -Fevers have resolved -White count now normal -Currently on Septra -Finished fluconazole -Urine culture positive for Klebsiella pneumoniae sensitive to Septra UTI acute- resolved -history of incontinence -Blood cultures negative -Urine culture: Klebsiella pneumonia - multi-sensitive -Switched to Septra ?acute CHF exacerbation-Pulmonary congestion on bilateral cxr, bilateral noted on chest x-ray, 1 L of fluids was given in the ER History of questionable CHF, when CPK returns may need to alter fluids and diuresis. -Echocardiogram: 1. Left ventricular ejection fraction, by visual estimation, is 60 to 65%. 2. Normal left ventricular systolic function. 3. Mild septal left ventricular hypertrophy. 4. Normal pattern of LV diastolic filling. 5. Mildly dilated left atrium. 6. Mildly dilated right atrium. 7. Mild mitral valve regurgitation. 8. Trace tricuspid valve regurgitation. 9. The right ventricular systolic pressure is probably normal. 10. No regional wall motion abnormalities -Lower extremity edema is most likely secondary to dependent edema -Kidney function slightly improved -Lasix on hold -Stop fluids Elevated troponin-likely secondary to troponin leak, -Echocardiogram showed no wall motion abnormalities -Plt now 80,000 -Stopped Lovenox Nausea and vomiting-resolved Elevated LFT-improved: Concern that it may be associated with rhabdomyolysis with pending CPK, or secondary to CHF exacerbation with BNP pending, pending overall work-up. Right upper quadrant ultrasound performed: Large 4.5 cm gallstone with increased common bile duct dilatation at 1.1 cm. This biliary duct dilatation is an interval change from prior exam. -Total bilirubin returned to normal of 0.9 and albumin improved to 2.3 enzymes improved. -Enzymes are improving, ALT is improving is still elevated at 229. -She is not a surgical candidate at this time and she is not symptomatic. -Concern Diflucan could have caused worsening of LFTs. -Liver enzymes have improved -Diflucan completed -Encouraged improved diet. Dietary consult Thrombocytopenia -likely secondary to sepsis and chronic illness -Stop Lovenox -Continue aspirin at this time -Platelets slightly improved at 85,000 Hypertension-continue metoprolol. [place] Asthma-asymptomatic, will add as needed albuterol if necessary Chronic constipation-stop Colace and MiraLAX because of current diarrhea -Patient is having loose and watery stools. Review of her old chart shows that it is likely chronic now. Will stop her oral magnesium and treat with IV magnesium while in the hospital. Stop Colace and MiraLAX. Rhabdomyolysis - resolved, -CK has normalized -Renal function is improving -Continue to monitor. Metabolic encephalopathy -resolved -Mentation now is likely secondary to longstanding dementia -Placement pending Decubitus bilateral lower extremity -Physical therapy is doing daily dressing changes with Unna boots -Switched to Septra NSTEMI- heparin, plavix, asa started when troponin increase. family is realistic and no transfer will be done -Continue aspirin -Heparin stopped secondary to thrombocytopenia -Likely a type II GA secondary to sepsis -No wall motion abnormalities Pityriasis versicolor- and generalized fungal infection-fluconazole finished Anxiety -ativan 0.5 prn bid added IV Chronic hypomagnesemia -Stop oral magnesium while hospitalized secondary to diarrhea -Supplement as needed ppx Unna boot, aspirin; Lovenox/heparin contraindicated secondary to t hrombocytopenia. Unna boot serves as compression device. full code Hospital stay greater than 96 hours secondary to placement issues, long weekend, slow resolution of sepsis and acute renal insufficiency.
[2021-06-23] MEDS: Metoprolol Succinate 50 MG Tab.ER PO SCH (09:18)
[2021-06-23] MEDS: Potassium Chloride 20 MEQ Tab.ER PO SCH (09:20)
[2021-06-23] MEDS: Magnesium Oxide 400 MG Tab PO SCH ×3 (09:21→20:44)
[2021-06-23] MEDS: Aspirin 81 MG Tab.EC PO SCH (09:21)
[2021-06-23] MEDS: Enoxaparin 40 MG/0.4 ML Syringe SUBCUT SCH (09:21)
[2021-06-23] MEDS: Nystatin Topical Powder 15 GM Bottle TOP SCH ×5 (10:25→20:45)
--- NOTE | 2021-06-23 13:05 | PCM.PN ---
- General Info Date of Service: 06/23/21 Admission Dx/Problem (Free Text): Admission Diagnosis/Problem Admission Diagnosis/Problem Sepsis Subjective Update: Patient has mild complaints of urinary incontinence, urge incontinence, loose stools sometimes getting some incontinence. Patient was restarted on magnesium which is likely causing her loose stools Functional Status: Reports: Pain Controlled - Review of Systems General: Reports: No Symptoms HEENT: Reports: No Symptoms Pulmonary: Reports: No Symptoms Cardiovascular: Reports: No Symptoms Gastrointestinal: Reports: Diarrhea Genitourinary: Reports: Urgency, Incontinence - Patient Data Vitals - Most Recent: Last Vital Signs Temp 98.2 F 06/23/21 08:57 Pulse 57 L 06/23/21 09:18 Resp 18 06/23/21 08:57 BP 116/59 L 06/23/21 09:18 Pulse Ox 91 L 06/23/21 08:57 Weight - Most Recent: 230 lb 8 oz I&O - Last 24 Hours: Intake & Output 06/22/21 06/23/21 06/23/21 22:59 06:59 14:59 Intake Total 1370 400 Output Total 500 Balance 870 400 Med Orders - Current: Current Medications Acetaminophen (Acetaminophen 325 Mg Tab) 650 mg PO Q4H PRN PRN Reason: Pain (Mild 1-3)/fever Last Admin: 06/21/21 00:07 Dose: 650 mg Documented by: Acetaminophen (Acetaminophen 650 Mg Supp) 650 mg RECTAL Q4H PRN PRN Reason: Fever Last Admin: 06/12/21 18:39 Dose: 650 mg Documented by: Aspirin (Aspirin 81 Mg Tab.Ec) 81 mg PO DAILY [facility] Last Admin: 06/23/21 09:21 Dose: 81 mg Documented by: Docusate Sodium (Docusate Sodium 100 Mg Cap) 100 mg PO Q12H PRN PRN Reason: Constipation Last Admin: 06/19/21 20:37 Dose: 100 mg Documented by: Enoxaparin Sodium (Enoxaparin 40 Mg/0.4 Ml Syringe) 40 mg SUBCUT DAILY [facility] Last Admin: 06/23/21 09:21 Dose: 40 mg Documented by: Lorazepam (Lorazepam 2 Mg/Ml Sdv) 0.5 mg IVPUSH BID PRN PRN Reason: Anxiety Last Admin: 06/21/21 09:01 Dose: 0.5 mg Documented by: Magnesium Oxide (Magnesium Oxide 400 Mg Tab) 400 mg PO BID [facility] Last Admin: 06/23/21 09:21 Dose: 400 mg Documented by: Metoprolol Succinate (Metoprolol Succinate 50 Mg Tab.Er) 50 mg PO DAILY [facility] Last Admin: 06/23/21 09:18 Dose: 50 mg Documented by: Nystatin (Nystatin Topical Powder 15 Gm Bottle) 0 gm TOP QID [facility] Last Admin: 06/23/21 10:25 Dose: Not Given Documented by: Ondansetron HCl (Ondansetron 4 Mg Tab.Dis) 4 mg PO Q4H PRN PRN Reason: nausea, able to take PO Potassium Chloride (Potassium Chloride 20 Meq Tab.Er) 20 meq PO DAILY [facility] Last Admin: 06/23/21 09:20 Dose: 20 meq Documented by: Sodium Chloride (Sodium Chloride 0.9% 10 Ml Syringe) 10 ml FLUSH ASDIRECTED PRN PRN Reason: Keep Vein Open Last Admin: 06/21/21 10:42 Dose: 10 ml Documented by: Temazepam (Temazepam 7.5 Mg Cap) 7.5 mg PO BEDTIME PRN PRN Reason: Sleep Tramadol HCl (Tramadol 50 Mg Tab) 50 mg PO Q6H PRN PRN Reason: Pain Last Admin: 06/22/21 13:20 Dose: 50 mg Documented by: Discontinued Medications Aspirin (Aspirin 325 Mg Tab.Ec) 325 mg PO ONETIME ONE Stop: 06/12/21 22:46 Last Admin: 06/12/21 23:23 Dose: 325 mg Documented by: Clopidogrel Bisulfate (Clopidogrel 75 Mg Tab) 300 mg PO ONETIME ONE Stop: 06/12/21 22:46 Last Admin: 06/12/21 23:23 Dose: 300 mg Documented by: Diphenhydramine HCl (Diphenhydramine 50 Mg/Ml Sdv) 50 mg IVPUSH ONETIME PRN PRN Reason: hypersensitivity reaction Stop: 06/18/21 20:00 Docusate Sodium (Docusate Sodium 100 Mg Cap) 100 mg PO BID [facility] Last Admin: 06/14/21 08:54 Dose: Not Given Documented by: Enoxaparin Sodium (Enoxaparin 40 Mg/0.4 Ml Syringe) 40 mg SUBCUT DAILY [facility] Last Admin: 06/15/21 08:05 Dose: 40 mg Documented by: Epinephrine HCl (Epinephrine 1 Mg/Ml Sdv) 0.3 mg IM ONETIME PRN PRN Reason: hypersensitivity reaction Stop: 06/18/21 20:00 Famotidine (Famotidine 20 Mg/2 Ml Sdv) 20 mg IVPUSH BID [facility] Last Admin: 06/14/21 08:23 Dose: 20 mg Documented by: Famotidine (Famotidine 20 Mg/2 Ml Sdv) 20 mg IVPUSH ONETIME PRN PRN Reason: hypersensitivity reaction Stop: 06/18/21 20:00 Furosemide (Furosemide 20 Mg Tab) 20 mg PO DAILY PRN PRN Reason: Edema Furosemide (Furosemide 40 Mg/4 Ml Vial) 40 mg IVPUSH TID [facility] Last Admin: 06/13/21 08:37 Dose: 40 mg Documented by: Furosemide (Furosemide 20 Mg/2 Ml Vial) 20 mg IVPUSH DAILY [facility] Last Admin: 06/15/21 08:04 Dose: 20 mg Documented by: Heparin Sodium (Porcine) (Heparin Sodium 5,000 Units/Ml Vial) 5,000 units SUBCUT Q8H [facility] Last Admin: 06/12/21 18:38 Dose: 5,000 units Documented by: Heparin Sodium (Porcine) (Heparin Sodium 5,000 Units/Ml Vial) 4,000 units IVPUSH ONETIME ONE Stop: 06/12/21 23:21 Last Admin: 06/13/21 00:15 Dose: 4,000 units Documented by: Sodium Chloride (Normal Saline) 1,000 mls @ 999 mls/hr IV ONETIME ONE; Protocol Stop: 06/12/21 16:28 Last Admin: 06/12/21 15:46 Dose: 999 mls/hr Documented by: Ceftriaxone Sodium 2 gm/ (Sodium Chloride) 100 mls @ 200 mls/hr IV ONETIME ONE Stop: 06/12/21 16:52 Last Admin: 06/12/21 16:28 Dose: 200 mls/hr Documented by: Ceftriaxone Sodium 2 gm/ (Sodium Chloride) 100 mls @ 200 mls/hr IV Q24H [facility] Vancomycin HCl 2 gm/ Sodium (Chloride) 500 mls @ 250 mls/hr IV ONETIME ONE Stop: 06/12/21 22:59 Last Admin: 06/12/21 22:01 Dose: 250 mls/hr Documented by: Vancomycin HCl 1.25 gm/ Sodium (Chloride) 250 mls @ 250 mls/hr IV Q12H [facility] Heparin Sodium/Dextrose (Heparin 25,000 Units In D5w 500 Ml) 25,000 units in 500 mls @ 20 mls/hr IV TITRATE [facility]; Protocol Last Titration: 06/14/21 04:08 Dose: 4.8 mls/hr Documented by: Piperacillin Sod/Tazobactam (Sod 3.375 gm/ Sodium Chloride) 100 mls @ 25 mls/hr IV Q8H [facility] Fluconazole/Sodium Chloride (200 mg/ Premix) 100 mls @ 100 mls/hr IV Q24H [facility] Last Admin: 06/15/21 08:04 Dose: 100 mls/hr Documented by: Piperacillin Sod/Tazobactam (Sod 4.5 gm/ Sodium Chloride) 100 mls @ 200 mls/hr IV ONETIME ONE Stop: 06/13/21 08:29 Last Admin: 06/13/21 08:37 Dose: 200 mls/hr Documented by: Piperacillin Sod/Tazobactam (Sod 4.5 gm/ Sodium Chloride) 100 mls @ 25 mls/hr IV Q8H [facility] Last Admin: 06/15/21 15:19 Dose: 25 mls/hr Documented by: Vancomycin HCl 1 gm/Vancomycin HCl 250 mg/ Sodium Chloride 250 mls @ 250 mls/hr IV Q12H [facility] Last Admin: 06/14/21 20:51 Dose: 250 mls/hr Documented by: Magnesium Sulfate 2 gm/ Premix 50 mls @ 25 mls/hr IV ONETIME ONE Stop: 06/13/21 11:01 Last Admin: 06/13/21 09:52 Dose: 25 mls/hr Documented by: Potassium Chloride 10 meq/ (Premix) 100 mls @ 100 mls/hr IV ONETIME ONE Stop: 06/13/21 10:27 Last Admin: 06/13/21 11:29 Dose: Not Given Documented by: Potassium Chloride 10 meq/ (Premix) 100 mls @ 100 mls/hr IV ONETIME ONE Stop: 06/13/21 11:59 Potassium Chloride 10 meq/ (Premix) 100 mls @ 100 mls/hr IV ONETIME ONE Stop: 06/13/21 13:59 Last Admin: 06/13/21 12:19 Dose: 100 mls/hr Documented by: Sodium Chloride (Normal Saline) 150 mls @ 50 mls/hr IV ASDIRECTED [facility] Last Admin: 06/13/21 12:19 Dose: 50 mls/hr Documented by: Magnesium Sulfate 4 gm/ Premix 50 mls @ 12.5 mls/hr IV ONETIME ONE Stop: 06/14/21 13:47 Last Admin: 06/14/21 10:28 Dose: 12.5 mls/hr Documented by: Albumin Human (Flexbumin 25%) 12.5 gm in 50 mls @ 100 mls/hr IV ONETIME ONE Stop: 06/15/21 09:20 Last Admin: 06/15/21 09:40 Dose: 80 mls/hr Documented by: Albumin Human (Flexbumin 25%) 12.5 gm in 50 mls @ 100 mls/hr IV ONETIME ONE Stop: 06/15/21 16:29 Last Admin: 06/15/21 15:12 Dose: 100 mls/hr Documented by: Lactated Ringer's (Ringers, Lactated) 1,000 mls @ 75 mls/hr IV ASDIRECTED [facility] Last Admin: 06/15/21 14:56 Dose: 75 mls/hr Documented by: Lactated Ringer's (Ringers, Lactated) 1,000 [facility]ls [facility] Admin: 06/16/21 23:04 Dose: 75 mls/hr Documented by: Magnesium Sulfate 2 gm/ Premix 50 mls @ 25 mls/hr IV ONETIME ONE Stop: 06/16/21 11:04 Last Admin: 06/16/21 09:29 Dose: 25 mls/hr Documented by: Magnesium Sulfate 4 gm/ Premix 50 mls @ 12.5 mls/hr IV ONETIME ONE Stop: 06/17/21 12:34 Last Admin: 06/17/21 09:44 Dose: 12.5 mls/hr Documented by: Magnesium Sulfate 2 gm/ Premix 50 mls @ 25 mls/hr IV ONETIME ONE Stop: 06/18/21 12:40 Last Admin: 06/18/21 10:50 Dose: 25 mls/hr Documented by: CASIRIVIMAB/IMDEVIMAB 10 ml/ (Sodium Chloride) 110 mls @ 220 mls/hr IV ONETIME ONE Stop: 06/18/21 14:59 Last Admin: 06/18/21 14:33 Dose: 220 mls/hr Documented by: Magnesium Sulfate 4 gm/ Premix 50 mls @ 12.5 mls/hr IV ONETIME ONE Stop: 06/20/21 12:10 Last Admin: 06/20/21 09:13 Dose: 12.5 mls/hr Documented by: Ibuprofen (Ibuprofen 600 Mg Tab) 600 mg PO Q6H PRN PRN Reason: Pain/Fever Last Admin: 06/20/21 18:46 Dose: 600 mg Documented by: Iopamidol (Iopamidol 755 Mg/Ml 100 Ml Bottle) 100 ml IVPUSH ONETIME ONE Stop: 06/21/21 08:29 Last Admin: 06/21/21 09:45 Dose: 100 ml Documented by: Magnesium Oxide (Magnesium Oxide 400 Mg Tab) 400 mg PO BID [facility] Last Admin: 06/14/21 08:23 Dose: 400 mg Documented by: Methylprednisolone Sodium Succinate (Methylprednisolone Sodium Succinate 125 Mg/2 Ml Sdv) 125 mg IVPUSH ONETIME PRN PRN Reason: hypersensitivity reaction Stop: 06/18/21 20:00 Metoprolol Succinate (Metoprolol Succinate 50 Mg Tab.Er) 50 mg PO DAILY [facility] Last Admin: 06/13/21 08:38 Dose: 50 mg Documented by: Multi-Ingred Cream/Lotion/Oil/Oint (Zinc Oxide 20% Oint 28.35 Gm Tube) 1 gm TOP Q1H [facility] Last Admin: 06/13/21 12:04 Dose: Not Given Documented by: Multi-Ingred Cream/Lotion/Oil/Oint (Zinc Oxide 20% Oint 28.35 Gm Tube) 1 gm TOP DAILY [facility] Stop: 06/14/21 09:01 Last Admin: 06/14/21 08:24 Dose: 1 gm Documented by: Neomycin/Polymyxin/Bacitracin (Bacitracin/Neomycin/Polymyxin B Oint 15 Gm Tube) 0 gm TOP BID [facility] Last Admin: 06/16/21 11:50 Dose: Not Given Documented by: Oxycodone HCl (Oxycodone 5 Mg Tab) 5 mg PO Q6H PRN PRN Reason: Pain Pharmacy Consult (Pharmacy Consult Order) 1 each .XX ASDIRECTED [facility] Polyethylene Glycol (Polyethylene Glycol 3350 Powder 17 Gm Packet) 17 gm PO DAILY [facility] Last Admin: 06/14/21 08:55 Dose: Not Given Documented by: Potassium Chloride (Potassium Chloride 20 Meq Tab.Er) 40 meq PO ONETIME ONE Stop: 06/13/21 09:29 Last Admin: 06/13/21 10:37 Dose: 40 meq Documented by: Potassium Chloride (Potassium Chloride 20 Meq Tab.Er) 20 meq PO ONETIME ONE Stop: 06/14/21 09:36 Last Admin: 06/14/21 10:28 Dose: 20 meq Documented by: Potassium Chloride (Potassium Chloride 20 Meq Tab.Er) 20 meq PO ONETIME ONE Stop: 06/15/21 17:01 Last Admin: 06/15/21 18:30 Dose: 20 meq Documented by: Sodium Chloride (Sodium Chloride 0.9% 10 Ml Syringe) 30 ml FLUSH ASDIRECTED [facility] Stop: 06/18/21 20:00 Trimethoprim/Sulfamethoxazole (Sulfamethoxazole/Trimethoprim 800-160 Mg Tab) 1 tab PO BID [facility] Last Admin: 06/21/21 10:15 Dose: 1 tab Documented by: Vancomycin HCl (Pharmacy To Dose - Vancomycin) 1 dose .XX ASDIRECTED [facility] Vancomycin HCl (Vancomycin 1 Gm Sdv) Confirm Administered Dose 2 gm .ROUTE .STK- MED ONE Stop: 06/12/21 21:43 Last Admin: 06/12/21 21:55 Dose: Not Given Documented by: - Exam Quality Assessment: No: Supplemental Oxygen Urinary Catheter Total Time: 1Days 23Hours General: Alert, Oriented HEENT: Pupils Equal, Mucous Membr. Moist/[place] Neck: Supple Lungs: Normal Respiratory Effort, Crackles (Bibasilar) Cardiovascular: Regular Rate, Regular Rhythm, Murmurs GI/Abdominal Exam: Normal Bowel Sounds, Soft, Non-Tender, No Distention Extremities: Other (Unna boost in place) - Patient Data Result Diagrams: 06/21/21 04:44 06/21/21 04:44 Sepsis Event Note - Evaluation Sepsis Screening Result: No Definite Risk - Focused Exam Vital Signs: Vital Signs Temp Pulse Resp BP Pulse Ox 06/23/21 09:18 57 L 116/59 L 06/23/21 08:57 98.2 F 54 L 18 116/59 L 91 L 06/23/21 03:13 98.1 F 53 L 18 137/59 L 94 L - Problem List & Annotations (1) Traumatic arthropathy, right hand SNOMED Code(s): 347512692, 720581998 Code(s): M12.541 - TRAUMATIC ARTHROPATHY, RIGHT HAND Status: Acute Current Visit: Yes (2) Acute kidney injury SNOMED Code(s): 61680215, 24041911 Code(s): N17.9 - ACUTE KIDNEY FAILURE, UNSPECIFIED Status: Acute Current Visit: Yes (3) Cellulitis of both lower extremities SNOMED Code(s): 276841690 Code(s): L03.115 - CELLULITIS OF RIGHT LOWER LIMB; L03.116 - CELLULITIS OF LEFT LOWER LIMB Status: Acute Current Visit: Yes (4) Dependent edema SNOMED Code(s): 184091260 Code(s): R60.9 - EDEMA, UNSPECIFIED Status: Acute Current Visit: Yes (5) Fall at home SNOMED Code(s): 22761897 Code(s): W19.XXXA - UNSPECIFIED FALL, INITIAL ENCOUNTER; Y92.009 - UNSP PLACE [facility] Status: Acute Current Visit: No (6) Hypokalemia SNOMED Code(s): 41278843 Code(s): E87.6 - HYPOKALEMIA Status: Acute Current Visit: Yes (7) Hypomagnesemia SNOMED Code(s): 626731123 Code(s): E83.42 - HYPOMAGNESEMIA Status: Acute Current Visit: Yes (8) UTI (urinary tract infection) SNOMED Code(s): 06885831 Code(s): N39.0 - URINARY TRACT INFECTION, SITE NOT SPECIFIED Status: Acute Current Visit: Yes Qualifiers: Urinary tract infection type: site unspecified Hematuria presence: with hematuria Qualified Code(s): N39.0 - Urinary tract infection, site not specified; R31.9 - Hematuria, unspecified (9) Elevated CK SNOMED Code(s): 159226761 Code(s): R74.8 - ABNORMAL LEVELS OF OTHER SERUM ENZYMES Status: Resolved Current Visit: Yes - Problem List Review Problem List Initiated/Reviewed/Updated: Yes - My Orders Last 24 Hours: My Active Orders 06/24/21 05:11 CBC WITH AUTO DIFF [HEME] AM CMP [COMPREHENSIVE METABOLIC PN,CMP] [CHEM] AM MAGNESIUM [CHEM] AM - Plan Plan:: Generalized weakness and debility Pt will need more PT/OT and eventually SNF placement Protein calorie malnutrition nutritional supplementation Dietary following Dementia Pt was seen by speech therapy and as per her cognitive eval she has at least mild to moderated cognitive decline in her executive functions. She will benefit from a SNF placement and hopefully her mental status improves as she recovers from her recent infection and sepsis. Urge incontinence PT to evaluate and treat Avoid diuretics if possible Mild loose stools with stool incontinence Likely worsened by mag oxide May consider a chelated magnesium as outpatient Encouraged improvement in diet to magnesium rich foods. Covid positive Patient is asymptomatic. Screening done for discharge to long-term care facility. Question if patient may have had symptomatic Covid over 2 weeks ago per her history. -Regen-CoV given I spoke with Ivania her sister who is her healthcare proxy to provide information about [facility] for Yana Seo. I have offered to them the "fax sheet for patients and parents/caregivers" for [facility] to read and review. I stated that therapy has been approved by an emergency use authorization process and has not fully been FDA reviewed or approved. I shared potential risks from the therapy including anaphylaxis and hypotension. I discussed there are other potential treatment options that are currently not FDA approved to treat COVID- 19. Offered opportunity to ask questions and all questions were answered. Ivania voiced understanding and agreed to proceed with treatment for Yana Seo sepsis without shock-elevated white count - resolved. mrsa positive nasal swab. added fluconazole due to the severalty of a pityriasis versicolor and appearance on genital rash with satellite lesions -Fevers have resolved -White count now normal -Currently on Septra -Finished fluconazole -Urine culture positive for Klebsiella pneumoniae sensitive to Septra UTI acute- resolved -history of incontinence -Blood cultures negative -Urine culture: Klebsiella pneumonia - multi-sensitive -Switched to Septra ?acute CHF exacerbation-Pulmonary congestion on bilateral cxr, bilateral noted on chest x-ray, 1 L of fluids was given in the ER History of questionable CHF, when CPK returns may need to alter fluids and diuresis. -Echocardiogram: 1. Left ventricular ejection fraction, by visual estimation, is 60 to 65%. 2. Normal left ventricular systolic function. 3. Mild septal left ventricular hypertrophy. 4. Normal pattern of LV diastolic filling. 5. Mildly dilated left atrium. 6. Mildly dilated right atrium. 7. Mild mitral valve regurgitation. 8. Trace tricuspid valve regurgitation. 9. The right ventricular systolic pressure is probably normal. 10. No regional wall motion abnormalities -Lower extremity edema is most likely secondary to dependent edema -Kidney function slightly improved -Lasix on hold -Stop fluids Elevated troponin-likely secondary to troponin leak, -Echocardiogram showed no wall motion abnormalities -Plt now 80,000 -Stopped Lovenox Nausea and vomiting-resolved Elevated LFT-improved: Concern that it may be associated with rhabdomyolysis with pending CPK, or secondary to CHF exacerbation with BNP pending, pending overall work-up. Right upper quadrant ultrasound performed: Large 4.5 cm gallstone with increased common bile duct dilatation at 1.1 cm. This biliary duct dilatation is an interval change from prior exam. -Total bilirubin returned to normal of 0.9 and albumin improved to 2.3 enzymes improved. -Enzymes are improving, ALT is improving is still elevated at 229. -She is not a surgical candidate at this time and she is not symptomatic. -Concern Diflucan could have caused worsening of LFTs. -Liver enzymes have improved -Diflucan completed -Encouraged improved diet. Dietary consult Thrombocytopenia -likely secondary to sepsis and chronic illness -Stop Lovenox -Continue aspirin at this time -Platelets slightly improved at 85,000 Hypertension-continue metoprolol. [place] Asthma-asymptomatic, will add as needed albuterol if necessary Chronic constipation-stop Colace and MiraLAX because of current diarrhea -Patient is having loose and watery stools. Review of her old chart shows that it is likely chronic now. Will stop her oral magnesium and treat with IV magnesium while in the hospital. Stop Colace and MiraLAX. Rhabdomyolysis - resolved, -CK has normalized -Renal function is improving -Continue to monitor. Metabolic encephalopathy -resolved -Mentation now is likely secondary to longstanding dementia -Placement pending Decubitus bilateral lower extremity -Physical therapy is doing daily dressing changes with Unna boots -Switched to Septra NSTEMI- heparin, plavix, asa started when troponin increase. family is realistic and no transfer will be done -Continue aspirin -Heparin stopped secondary to thrombocytopenia -Likely a type II IA secondary to sepsis -No wall motion abnormalities Pityriasis versicolor- and generalized fungal infection-fluconazole finished Anxiety -ativan 0.5 prn bid added IV Chronic hypomagnesemia -Stop oral magnesium while hospitalized secondary to diarrhea -Supplement as needed ppx Unna boot, aspirin; Lovenox/heparin contraindicated secondary to thrombocytopenia. Unna boot serves as compression device. full code Hospital stay greater than 96 hours secondary to placement issues, long weekend, slow resolution of sepsis and acute renal insufficiency.
[2021-06-23] MEDS: traMADol 50 MG Tab PO PRN (13:37)
--- NOTE | 2021-06-24 07:09 | PCM.PN ---
- General Info Date of Service: 06/24/21 Admission Dx/Problem (Free Text): Admission Diagnosis/Problem Admission Diagnosis/Problem Sepsis Subjective Update: Patient continues to complain of urinary incontinence. She does state her stools are better. Functional Status: Reports: Pain Controlled - Review of Systems General: Reports: No Symptoms HEENT: Reports: No Symptoms Pulmonary: Reports: No Symptoms Cardiovascular: Reports: No Symptoms Gastrointestinal: Reports: No Symptoms - Patient Data Vitals - Most Recent: Last Vital Signs Temp 97.9 F 06/24/21 03:14 Pulse 53 L 06/24/21 03:14 Resp 18 06/24/21 03:14 BP 128/97 H 06/24/21 03:14 Pulse Ox 95 06/24/21 03:14 Weight - Most Recent: 232 lb 8 oz I&O - Last 24 Hours: Intake & Output 06/23/21 06/24/21 06/24/21 22:59 06:59 14:59 Intake Total 1480 Output Total 1150 600 Balance 330 -600 Lab Results Last 24 Hours: Laboratory Results - last 24 hr 06/24/21 Range/Units 05:50 WBC 6.45 (3.98-10.04) K/mm3 RBC 3.61 L (3.98-5.22) M/mm3 Hgb 10.8 L (11.2-15.7) gm/dl Hct 34.7 (34.1-44.9) % MCV 96.1 H (79.4-94.8) fl MCH 29.9 (25.6-32.2) pg MCHC 31.1 L (32.2-35.5) g/dl RDW Std Deviation 51.5 H (36.4-46.3) fL Plt Count 299 D (182-369) K/mm3 MPV 10.7 (9.4-12.3) fl Neut % (Auto) 38.0 (34.0-71.1) % Lymph % (Auto) 42.0 (19.3-51.7) % [place] % (Auto) 17.4 H (4.7-12.5) % Eos % (Auto) 1.9 (0.7-5.8) Baso % (Auto) 0.5 (0.1-1.2) % Neut # (Auto) 2.46 (1.56-6.13) K/mm3 Lymph # (Auto) 2.71 (1.18-3.74) K/mm3 [place] # (Auto) 1.12 H (0.24-0.36) K/mm3 Eos # (Auto) 0.12 (0.04-0.36) K/mm3 Baso # (Auto) 0.03 (0.01-0.08) K/mm3 Med Orders - Current: Current Medications Acetaminophen (Acetaminophen 325 Mg Tab) 650 mg PO Q4H PRN PRN Reason: Pain (Mild 1-3)/fever Last Admin: 06/21/21 00:07 Dose: 650 mg Documented by: Acetaminophen (Acetaminophen 650 Mg Supp) 650 mg RECTAL Q4H PRN PRN Reason: Fever Last Admin: 06/12/21 18:39 Dose: 650 mg Documented by: Aspirin (Aspirin 81 Mg Tab.Ec) 81 mg PO DAILY [facility] Last Admin: 06/23/21 09:21 Dose: 81 mg Documented by: Docusate Sodium (Docusate Sodium 100 Mg Cap) 100 mg PO Q12H PRN PRN Reason: Constipation Last Admin: 06/19/21 20:37 Dose: 100 mg Documented by: Enoxaparin Sodium (Enoxaparin 40 Mg/0.4 Ml Syringe) 40 mg SUBCUT DAILY [facility] Last Admin: 06/23/21 09:21 Dose: 40 mg Documented by: Lorazepam (Lorazepam 2 Mg/Ml Sdv) 0.5 mg IVPUSH BID PRN PRN Reason: Anxiety Last Admin: 06/21/21 09:01 Dose: 0.5 mg Documented by: Magnesium Oxide (Magnesium Oxide 400 Mg Tab) 400 mg PO BID [facility] Last Admin: 06/23/21 20:44 Dose: Not Given Documented by: Metoprolol Succinate (Metoprolol Succinate 50 Mg Tab.Er) 50 mg PO DAILY [facility] Last Admin: 06/23/21 09:18 Dose: 50 mg Documented by: Nystatin (Nystatin Topical Powder 15 Gm Bottle) 0 gm TOP QID [facility] Last Admin: 06/23/21 20:45 Dose: Not Given Documented by: Ondansetron HCl (Ondansetron 4 Mg Tab.Dis) 4 mg PO Q4H PRN PRN Reason: nausea, able to take PO Potassium Chloride (Potassium Chloride 20 Meq Tab.Er) 20 meq PO DAILY [facility] Last Admin: 06/23/21 09:20 Dose: 20 meq Documented by: Sodium Chloride (Sodium Chloride 0.9% 10 Ml Syringe) 10 ml FLUSH ASDIRECTED PRN PRN Reason: Keep Vein Open Last Admin: 06/21/21 10:42 Dose: 10 ml Documented by: Temazepam (Temazepam 7.5 Mg Cap) 7.5 mg PO BEDTIME PRN PRN Reason: Sleep Tramadol HCl (Tramadol 50 Mg Tab) 50 mg PO Q6H PRN PRN Reason: Pain Last Admin: 06/23/21 13:37 Dose: 50 mg Documented by: Discontinued Medications Aspirin (Aspirin 325 Mg Tab.Ec) 325 mg PO ONETIME ONE Stop: 06/12/21 22:46 Last Admin: 06/12/21 23:23 Dose: 325 mg Documented by: Clopidogrel Bisulfate (Clopidogrel 75 Mg Tab) 300 mg PO ONETIME ONE Stop: 06/12/21 22:46 Last Admin: 06/12/21 23:23 Dose: 300 mg Documented by: Diphenhydramine HCl (Diphenhydramine 50 Mg/Ml Sdv) 50 mg IVPUSH ONETIME PRN PRN Reason: hypersensitivity reaction Stop: 06/18/21 20:00 Docusate Sodium (Docusate Sodium 100 Mg Cap) 100 mg PO BID [facility] Last Admin: 06/14/21 08:54 Dose: Not Given Documented by: Enoxaparin Sodium (Enoxaparin 40 Mg/0.4 Ml Syringe) 40 mg SUBCUT DAILY [facility] Last Admin: 06/15/21 08:05 Dose: 40 mg Documented by: Epinephrine HCl (Epinephrine 1 Mg/Ml Sdv) 0.3 mg IM ONETIME PRN PRN Reason: hypersensitivity reaction Stop: 06/18/21 20:00 Famotidine (Famotidine 20 Mg/2 Ml Sdv) 20 mg IVPUSH BID [facility] Last Admin: 06/14/21 08:23 Dose: 20 mg Documented by: Famotidine (Famotidine 20 Mg/2 Ml Sdv) 20 mg IVPUSH ONETIME PRN PRN Reason: hypersensitivity reaction Stop: 06/18/21 20:00 Furosemide (Furosemide 20 Mg Tab) 20 mg PO DAILY PRN PRN Reason: Edema Furosemide (Furosemide 40 Mg/4 Ml Vial) 40 mg IVPUSH TID [facility] Last Admin: 06/13/21 08:37 Dose: 40 mg Documented by: Furosemide (Furosemide 20 Mg/2 Ml Vial) 20 mg IVPUSH DAILY [facility] Last Admin: 06/15/21 08:04 Dose: 20 mg Documented by: Heparin Sodium (Porcine) (Heparin Sodium 5,000 Units/Ml Vial) 5,000 units SUBCUT Q8H [facility] Last Admin: 06/12/21 18:38 Dose: 5,000 units Documented by: Heparin Sodium (Porcine) (Heparin Sodium 5,000 Units/Ml Vial) 4,000 units IVPUSH ONETIME ONE Stop: 06/12/21 23:21 Last Admin: 06/13/21 00:15 Dose: 4,000 units Documented by: Sodium Chloride (Normal Saline) 1,000 mls @ 999 mls/hr IV ONETIME ONE; Protocol Stop: 06/12/21 16:28 Last Admin: 06/12/21 15:46 Dose: 999 mls/hr Documented by: Ceftriaxone Sodium 2 gm/ (Sodium Chloride) 100 mls @ 200 mls/hr IV ONETIME ONE Stop: 06/12/21 16:52 Last Admin: 06/12/21 16:28 Dose: 200 mls/hr Documented by: Ceftriaxone Sodium 2 gm/ (Sodium Chloride) 100 mls @ 200 mls/hr IV Q24H [facility] Vancomycin HCl 2 gm/ Sodium (Chloride) 500 mls @ 250 mls/hr IV ONETIME ONE Stop: 06/12/21 22:59 Last Admin: 06/12/21 22:01 Dose: 250 mls/hr Documented by: Vancomycin HCl 1.25 gm/ Sodium (Chloride) 250 mls @ 250 mls/hr IV Q12H [facility] Heparin Sodium/Dextrose (Heparin 25,000 Units In D5w 500 Ml) 25,000 units in 500 mls @ 20 mls/hr IV TITRATE [facility]; Protocol Last Titration: 06/14/21 04:08 Dose: 4.8 mls/hr Documented by: Piperacillin Sod/Tazobactam (Sod 3.375 gm/ Sodium Chloride) 100 mls @ 25 mls/hr IV Q8H [facility] Fluconazole/Sodium Chloride (200 mg/ Premix) 100 mls @ 100 mls/hr IV Q24H [facility] Last Admin: 06/15/21 08:04 Dose: 100 mls/hr Documented by: Piperacillin Sod/Tazobactam (Sod 4.5 gm/ Sodium Chloride) 100 mls @ 200 mls/hr IV ONETIME ONE Stop: 06/13/21 08:29 Last Admin: 06/13/21 08:37 Dose: 200 mls/hr Documented by: Piperacillin Sod/Tazobactam (Sod 4.5 gm/ Sodium Chloride) 100 mls @ 25 mls/hr IV Q8H [facility] Last Admin: 06/15/21 15:19 Dose: 25 mls/hr Documented by: Vancomycin HCl 1 gm/Vancomycin HCl 250 mg/ Sodium Chloride 250 mls @ 250 mls/hr IV Q12H [facility] Last Admin: 06/14/21 20:51 Dose: 250 mls/hr Documented by: Magnesium Sulfate 2 gm/ Premix 50 mls @ 25 mls/hr IV ONETIME ONE Stop: 06/13/21 11:01 Last Admin: 06/13/21 09:52 Dose: 25 mls/hr Documented by: Potassium Chloride 10 meq/ (Premix) 100 mls @ 100 mls/hr IV ONETIME ONE Stop: 06/13/21 10:27 Last Admin: 06/13/21 11:29 Dose: Not Given Documented by: Potassium Chloride 10 meq/ (Premix) 100 mls @ 100 mls/hr IV ONETIME ONE Stop: 06/13/21 11:59 Potassium Chloride 10 meq/ (Premix) 100 mls @ 100 mls/hr IV ONETIME ONE Stop: 06/13/21 13:59 Last Admin: 06/13/21 12:19 Dose: 100 mls/hr Documented by: Sodium Chloride (Normal Saline) 150 mls [facility] Last Admin: 06/13/21 12:19 Dose: 50 mls/hr Documented by: Magnesium Sulfate 4 gm/ Premix 50 mls @ 12.5 mls/hr IV ONETIME ONE Stop: 06/14/21 13:47 Last Admin: 06/14/21 10:28 Dose: 12.5 mls/hr Documented by: Albumin Human (Flexbumin 25%) 12.5 gm in 50 mls @ 100 mls/hr IV ONETIME ONE Stop: 06/15/21 09:20 Last Admin: 06/15/21 09:40 Dose: 80 mls/hr Documented by: Albumin Human (Flexbumin 25%) 12.5 gm in 50 mls @ 100 mls/hr IV ONETIME ONE Stop: 06/15/21 16:29 Last Admin: 06/15/21 15:12 Dose: 100 mls/hr Documented by: Lactated Ringer's (Ringers, Lactated) 1,000 mls @ 75 mls/hr IV ASDIRECTED [facility] Last Admin: 06/15/21 14:56 Dose: 75 mls/hr Documented by: Lactated Ringer's (Ringers, Lactated) 1,000 mls @ 75 mls/hr IV ASDIRECTED [facility] Last Admin: 06/16/21 23:04 Dose: 75 mls/hr Documented by: Magnesium Sulfate 2 gm/ Premix 50 mls @ 25 mls/hr IV ONETIME ONE Stop: 06/16/21 11:04 Last Admin: 06/16/21 09:29 Dose: 25 mls/hr Documented by: Magnesium Sulfate 4 gm/ Premix 50 mls @ 12.5 mls/hr IV ONETIME ONE Stop: 06/17/21 12:34 Last Admin: 06/17/21 09:44 Dose: 12.5 mls/hr Documented by: Magnesium Sulfate 2 gm/ Premix 50 mls @ 25 mls/hr IV ONETIME ONE Stop: 06/18/21 12:40 Last Admin: 06/18/21 10:50 Dose: 25 mls/hr Documented by: CASIRIVIMAB/IMDEVIMAB 10 ml/ (Sodium Chloride) 110 mls @ 220 mls/hr IV ONETIME ONE Stop: 06/18/21 14:59 Last Admin: 06/18/21 14:33 Dose: 220 mls/hr Documented by: Magnesium Sulfate 4 gm/ Premix 50 mls @ 12.5 mls/hr IV ONETIME ONE Stop: 06/20/21 12:10 Last Admin: 06/20/21 09:13 Dose: 12.5 mls/hr Documented by: Ibuprofen (Ibuprofen 600 Mg Tab) 600 mg PO Q6H PRN PRN Reason: Pain/Fever Last Admin: 06/20/21 18:46 Dose: 600 mg Documented by: Iopamidol (Iopamidol 755 Mg/Ml 100 Ml Bottle) 100 ml IVPUSH ONETIME ONE Stop: 06/21/21 08:29 Last Admin: 06/21/21 09:45 Dose: 100 ml Documented by: Magnesium Oxide (Magnesium Oxide 400 Mg Tab) 400 mg PO BID [facility] Last Admin: 06/14/21 08:23 Dose: 400 mg Documented by: Methylprednisolone Sodium Succinate (Methylprednisolone Sodium Succinate 125 Mg/2 Ml Sdv) 125 mg IVPUSH ONETIME PRN PRN Reason: hypersensitivity reaction Stop: 06/18/21 20:00 Metoprolol Succinate (Metoprolol Succinate 50 Mg Tab.Er) 50 mg PO DAILY [facility] Last Admin: 06/13/21 08:38 Dose: 50 mg Documented by: Multi-Ingred Cream/Lotion/Oil/Oint (Zinc Oxide 20% Oint 28.35 Gm Tube) 1 gm TOP Q1H [facility] Last Admin: 06/13/21 12:04 Dose: Not Given Documented by: Multi-Ingred Cream/Lotion/Oil/Oint (Zinc Oxide 20% Oint 28.35 Gm Tube) 1 gm TOP DAILY [facility] Stop: 06/14/21 09:01 Last Admin: 06/14/21 08:24 Dose: 1 gm Documented by: Neomycin/Polymyxin/Bacitracin (Bacitracin/Neomycin/Polymyxin B Oint 15 Gm Tube) 0 gm TOP BID [facility] Last Admin: 06/16/21 11:50 Dose: Not Given Documented by: Oxycodone HCl (Oxycodone 5 Mg Tab) 5 mg PO Q6H PRN PRN Reason: Pain Pharmacy Consult (Pharmacy Consult Order) 1 each .XX ASDIRECTED [facility] Polyethylene Glycol (Polyethylene Glycol 3350 Powder 17 Gm Packet) 17 gm PO DAILY [facility] Last Admin: 06/14/21 08:55 Dose: Not Given Documented by: Potassium Chloride (Potassium Chloride 20 Meq Tab.Er) 40 meq PO ONETIME ONE Stop: 06/13/21 09:29 Last Admin: 06/13/21 10:37 Dose: 40 meq Documented by: Potassium Chloride (Potassium Chloride 20 Meq Tab.Er) 20 meq PO ONETIME ONE Stop: 06/14/21 09:36 Last Admin: 06/14/21 10:28 Dose: 20 meq Documented by: Potassium Chloride (Potassium Chloride 20 Meq Tab.Er) 20 meq PO ONETIME ONE Stop: 06/15/21 17:01 Last Admin: 06/15/21 18:30 Dose: 20 meq Documented by: Sodium Chloride (Sodium Chloride 0.9% 10 Ml Syringe) 30 ml FLUSH [facility] Stop: 06/18/21 20:00 Trimethoprim/Sulfamethoxazole (Sulfamethoxazole/Trimethoprim 800-160 Mg Tab) 1 tab PO BID [facility] Last Admin: 06/21/21 10:15 Dose: 1 tab Documented by: Vancomycin HCl (Pharmacy To Dose - Vancomycin) 1 dose .XX ASDIRECT[facility] Vancomycin HCl (Vancomycin 1 Gm Sdv) Confirm Administered Dose 2 gm .ROUTE .STK- MED ONE Stop: 06/12/21 21:43 Last Admin: 06/12/21 21:55 Dose: Not Given Documented by: - Exam Quality Assessment: No: Supplemental Oxygen Urinary Catheter Total Time: 1Days 23Hours General: Alert, Oriented HEENT: Pupils Equal, Mucous Membr. Moist/[place] Neck: Supple Lungs: Clear to Auscultation, Normal Respiratory Effort Cardiovascular: Regular Rate, Regular Rhythm GI/Abdominal Exam: Normal Bowel Sounds, Soft, Non-Tender, No Distention Extremities: Other (Bilateral Unna boots) Skin: Warm, Dry, Intact Psy/Mental Status: Alert, Normal Affect, Normal Mood - Patient Data Lab Results Last 24 hrs: Laboratory Results - last 24 hr 06/24/21 Range/Units 05:50 WBC 6.45 (3.98-10.04) K/mm3 RBC 3.61 L (3.98-5.22) M/mm3 Hgb 10.8 L (11.2-15.7) gm/dl Hct 34.7 (34.1-44.9) % MCV 96.1 H (79.4-94.8) fl MCH 29.9 (25.6-32.2) pg MCHC 31.1 L (32.2-35.5) g/dl RDW Std Deviation 51.5 H (36.4-46.3) fL Plt Count 299 D (182-369) K/mm3 MPV 10.7 (9.4-12.3) fl Neut % (Auto) 38.0 (34.0-71.1) % Lymph % (Auto) 42.0 (19.3-51.7) % [place] % (Auto) 17.4 H (4.7-12.5) % Eos % (Auto) 1.9 (0.7-5.8) Baso % (Auto) 0.5 (0.1-1.2) % Neut # (Auto) 2.46 (1.56-6.13) K/mm3 Lymph # (Auto) 2.71 (1.18-3.74) K/mm3 [place] # (Auto) 1.12 H (0.24-0.36) K/mm3 Eos # (Auto) 0.12 (0.04-0.36) K/mm3 Baso # (Auto) 0.03 (0.01-0.08) K/mm3 Result Diagrams: 06/24/21 05:50 06/24/21 05:50 Sepsis Event Note - Evaluation Sepsis Screening Result: No Definite Risk - Focused Exam Vital Signs: Vital Signs Temp Pulse Resp BP Pulse Ox 06/24/21 03:14 97.9 F 53 L 18 128/97 H 95 06/23/21 19:47 97.5 F 58 L 93/61 95 - Problem List & Annotations (1) Traumatic arthropathy, right hand SNOMED Code(s): 215399501, 193488291 Code(s): M12.541 - TRAUMATIC ARTHROPATHY, RIGHT HAND Status: Acute Current Visit: Yes (2) Acute kidney injury SNOMED Code(s): 53413613, 74642581 Code(s): N17.9 - ACUTE KIDNEY FAILURE, UNSPECIFIED Status: Acute Current Visit: Yes (3) Cellulitis of both lower extremities SNOMED Code(s): 506298764 Code(s): L03.115 - CELLULITIS OF RIGHT LOWER LIMB; L03.116 - CELLULITIS OF LEFT LOWER LIMB Status: Acute Current Visit: Yes (4) Dependent edema SNOMED Code(s): 200065368 Code(s): R60.9 - EDEMA, UNSPECIFIED Status: Acute Current Visit: Yes (5) Fall at home SNOMED Code(s): 14932092 Code(s): W19.XXXA - UNSPECIFIED FALL, INITIAL ENCOUNTER; Y92.009 - UNSP PLACE IN UNSP NON-INSTITUT (PRIVATE) RESIDENCE PLACE Status: Acute Current Visit: No (6) Hypokalemia SNOMED Code(s): 31922265 Code(s): E87.6 - HYPOKALEMIA Status: Acute Current Visit: Yes (7) Hypomagnesemia SNOMED Code(s): 780556349 Code(s): E83.42 - HYPOMAGNESEMIA Status: Acute Current Visit: Yes (8) UTI (urinary tract infection) SNOMED Code(s): 20971293 Code(s): N39.0 - URINARY TRACT INFECTION, SITE NOT SPECIFIED Status: Acute Current Visit: Yes Qualifiers: Urinary tract infection type: site unspecified Hematuria presence: with hematuria Qualified Code(s): N39.0 - Urinary tract infection, site not specified; R31.9 - Hematuria, unspecified (9) Elevated CK SNOMED Code(s): 200298169 Code(s): R74.8 - ABNORMAL LEVELS OF OTHER SERUM ENZYMES Status: Resolved Current Visit: Yes - Problem List Review Problem List Initiated/Reviewed/Updated: Yes - My Orders Last 24 Hours: My Active Orders 06/24/21 05:50 CMP [COMPREHENSIVE METABOLIC PN,CMP] [CHEM] AM MAGNESIUM [CHEM] AM - Plan Plan:: Generalized weakness and debility Pt will need more PT/OT and eventually SNF placement Protein calorie malnutrition nutritional supplementation Dietary following Dementia Pt was seen by speech therapy and as per her cognitive eval she has at least mild to moderated cognitive decline in her executive functions. She will benefit from a SNF placement and hopefully her mental status improves as she recovers from her recent infection and sepsis. Urge incontinence PT to evaluate and treat Avoid diuretics if possible Recheck UA Mild loose stools with stool incontinence Likely worsened by mag oxide May consider a chelated magnesium as outpatient Encouraged improvement in diet to magnesium rich foods. Covid positive Patient is asymptomatic. Screening done for discharge to long-term care facility. Question if patient may have had symptomatic Covid over 2 weeks ago per her history. -Reg[facility]-CoV given I spoke with Ivania her sister who is her healthcare proxy to provide information about [facility] for Yana Seo. I have offered to them the "fax sheet for patients and parents/caregivers" for [facility] to read and review. I stated that therapy has been approved by an emergency use authorization process and has not fully been FDA reviewed or approved. I shared potential risks from the therapy including anaphylaxis and hypotension. I discussed there are other potential treatment options that are currently not FDA approved to treat COVID- 19. Offered opportunity to ask questions and all questions were answered. Ivania voiced understanding and agreed to proceed with treatment for Yana Voegele sepsis without shock-elevated white count - resolved. mrsa positive nasal swab. added fluconazole due to the severalty of a pityriasis versicolor and appearance on genital rash with satellite lesions -Fevers have resolved -White count now normal -Currently on Septra -Finished fluconazole -Urine culture positive for Klebsiella pneumoniae sensitive to Septra UTI acute- resolved -history of incontinence -Blood cultures negative -Urine culture: Klebsiella pneumonia - multi-sensitive ?acute CHF exacerbation-Pulmonary congestion on bilateral cxr, bilateral noted on chest x-ray, 1 L of fluids was given in the ER History of questionable CHF, when CPK returns may need to alter fluids and diuresis. -Echocardiogram: 1. Left ventricular ejection fraction, by visual estimation, is 60 to 65%. 2. Normal left ventricular systolic function. 3. Mild septal left ventricular hypertrophy. 4. Normal pattern of LV diastolic filling. 5. Mildly dilated left atrium. 6. Mildly dilated right atrium. 7. Mild mitral valve regurgitation. 8. Trace tricuspid valve regurgitation. 9. The right ventricular systolic pressure is probably normal. 10. No regional wall motion abnormalities -Lower extremity edema is most likely secondary to dependent edema -Kidney function slightly improved -Lasix on hold -Stop fluids Elevated troponin-likely secondary to troponin leak, -Echocardiogram showed no wall motion abnormalities -Plt now 80,000 -Stopped Lovenox Nausea and vomiting-resolved Elevated LFT-improved: Concern that it may be associated with rhabdomyolysis with pending CPK, or secondary to CHF exacerbation with BNP pending, pending overall work-up. Right upper quadrant ultrasound performed: Large 4.5 cm gallstone with increased common bile duct dilatation at 1.1 cm. This biliary duct dilatation is an interval change from prior exam. -Total bilirubin returned to normal of 0.9 and albumin improved to 2.3 enzymes improved. -Enzymes are improving, ALT is improving is still elevated at 229. -She is not a surgical candidate at this time and she is not symptomatic. -Concern Diflucan could have caused worsening of LFTs. -Liver enzymes have improved -Diflucan completed -Encouraged improved diet. Dietary consult Thrombocytopenia -likely secondary to sepsis and chronic illness -Stop Lovenox -Continue aspirin at this time -Platelets slightly improved at 85,000 Hypertension-continue metoprolol. [place] Asthma-asymptomatic, will add as needed albuterol if necessary Chronic constipation-stop Colace and MiraLAX because of current diarrhea -Patient is having loose and watery stools. Review of her old chart shows that it is likely chronic now. Will stop her oral magnesium and treat with IV ma gnesium while in the hospital. Stop Colace and MiraLAX. Rhabdomyolysis - resolved, -CK has normalized -Renal function is improving -Continue to monitor. Metabolic encephalopathy -resolved -Mentation now is likely secondary to longstanding dementia -Placement pending Decubitus bilateral lower extremity -Physical therapy is doing daily dressing changes with Unna boots NSTEMI- heparin, plavix, asa started when troponin increase. family is realistic and no transfer will be done -Continue aspirin -Heparin stopped secondary to thrombocytopenia -Likely a type II [place] secondary to sepsis -No wall motion abnormalities Pityriasis versicolor- and generalized fungal infection-fluconazole finished Anxiety -ativan 0.5 prn bid added IV Chronic hypomagnesemia -Stop oral magnesium while hospitalized secondary to diarrhea -Supplement as needed ppx Unna boot, aspirin; Lovenox/heparin contraindicated secondary to thrombocytopenia. Unna boot serves as compression device. full code Hospital stay greater than 96 hours secondary to placement issues, long weekend, slow resolution of sepsis and acute renal insufficiency.
[2021-06-24] MEDS: Nystatin Topical Powder 15 GM Bottle TOP SCH ×4 (09:05→20:19)
[2021-06-24] MEDS: Metoprolol Succinate 50 MG Tab.ER PO SCH (09:06)
[2021-06-24] MEDS: Potassium Chloride 20 MEQ Tab.ER PO SCH (09:07)
[2021-06-24] MEDS: Aspirin 81 MG Tab.EC PO SCH (09:08)
[2021-06-24] MEDS: Enoxaparin 40 MG/0.4 ML Syringe SUBCUT SCH (09:08)
[2021-06-24] MEDS: Magnesium Oxide 400 MG Tab PO SCH ×2 (09:08→20:19)
[2021-06-24] MEDS ORDERED: Magnesium Sulfate/Water 4 GM in Premix Bag 1 BAG IV ONE (10:00)
[2021-06-25] MEDS: Potassium Chloride 20 MEQ Tab.ER PO SCH (08:41)
[2021-06-25] MEDS: Enoxaparin 40 MG/0.4 ML Syringe SUBCUT SCH (08:41)
[2021-06-25] MEDS: Aspirin 81 MG Tab.EC PO SCH (08:42)
[2021-06-25] MEDS: Magnesium Oxide 400 MG Tab PO SCH ×3 (08:42→20:24)
[2021-06-25] MEDS: Metoprolol Succinate 50 MG Tab.ER PO SCH (08:57)
[2021-06-25] MEDS: Nystatin Topical Powder 15 GM Bottle TOP SCH ×5 (08:57→20:24)
--- NOTE | 2021-06-25 12:12 | PCM.PN ---
- General Info Date of Service: 06/25/21 Admission Dx/Problem (Free Text): Admission Diagnosis/Problem Admission Diagnosis/Problem Sepsis Subjective Update: Patient continues to be stable. No new complaints today. Awaiting placement. Functional Status: Reports: Pain Controlled - Review of Systems General: Reports: No Symptoms HEENT: Reports: No Symptoms Pulmonary: Reports: No Symptoms Cardiovascular: Reports: No Symptoms Gastrointestinal: Reports: No Symptoms Genitourinary: Reports: Urgency, Incontinence - Patient Data Vitals - Most Recent: Last Vital Signs Temp 97.9 F 06/25/21 08:56 Pulse 52 L 06/25/21 08:56 Resp 18 06/25/21 08:56 BP 154/62 H 06/25/21 08:56 Pulse Ox 95 06/25/21 08:56 Weight - Most Recent: 233 lb 3.2 oz I&O - Last 24 Hours: Intake & Output 06/24/21 06/25/21 06/25/21 22:59 06:59 14:59 Intake Total 840 Output Total 1150 350 Balance -310 -350 Lab Results Last 24 Hours: Laboratory Results - last 24 hr 06/24/21 Range/Units 11:35 Urine Color Yellow (Yellow) Urine Appearance Clear (Clear) Urine pH 7.0 (5.0-8.0) Ur Specific [place] 1.020 (1.005-1.030) Urine Protein Negative (Negative) Urine Glucose (UA) Negative (Negative) Urine Ketones Negative (Negative) Urine Occult Blood Trace-intact H (Negative) Urine Nitrite Negative (Negative) Urine Bilirubin Negative (Negative) Urine Urobilinogen 0.2 (0.2-1.0) Ur Leukocyte Esterase Negative (Negative) Urine RBC 0-5 (0-5) /hpf Urine WBC 0-5 (0-5) /hpf Ur Squamous Epith Cells 0-5 (0-5) /hpf Urine Bacteria Rare (FEW) /hpf Urine Mucus Not seen (FEW) /hpf Med Orders - Current: Current Medications Acetaminophen (Acetaminophen 325 Mg Tab) 650 mg PO Q4H PRN PRN Reason: Pain (Mild 1-3)/fever Last Admin: 06/21/21 00:07 Dose: 650 mg Documented by: Acetaminophen (Acetaminophen 650 Mg Supp) 650 mg RECTAL Q4H PRN PRN Reason: Fever Last Admin: 06/12/21 18:39 Dose: 650 mg Documented by: Aspirin (Aspirin 81 Mg Tab.Ec) 81 mg PO DAILY [facility] Last Admin: 06/25/21 08:42 Dose: 81 mg Documented by: Docusate Sodium (Docusate Sodium 100 Mg Cap) 100 mg PO Q12H PRN PRN Reason: Constipation Last Admin: 06/19/21 20:37 Dose: 100 mg Documented by: Enoxaparin Sodium (Enoxaparin 40 Mg/0.4 Ml Syringe) 40 mg SUBCUT DAILY [facility] Last Admin: 06/25/21 08:41 Dose: 40 mg Documented by: Lorazepam (Lorazepam 2 Mg/Ml Sdv) 0.5 mg IVPUSH BID PRN PRN Reason: Anxiety Last Admin: 06/21/21 09:01 Dose: 0.5 mg Documented by: Magnesium Oxide (Magnesium Oxide 400 Mg Tab) 400 mg PO BID [facility] Last Admin: 06/25/21 08:42 Dose: 400 mg Documented by: Metoprolol Succinate (Metoprolol Succinate 50 Mg Tab.Er) 50 mg PO DAILY [facility] Last Admin: 06/25/21 08:57 Dose: Not Given Documented by: Nystatin (Nystatin Topical Powder 15 Gm Bottle) 0 gm TOP QID [facility] Last Admin: 06/25/21 08:57 Dose: Not Given Documented by: Ondansetron HCl (Ondansetron 4 Mg Tab.Dis) 4 mg PO Q4H PRN PRN Reason: nausea, able to take PO Potassium Chloride (Potassium Chloride 20 Meq Tab.Er) 20 meq PO DAILY [facility] Last Admin: 06/25/21 08:41 Dose: 20 meq Documented by: Sodium Chloride (Sodium Chloride 0.9% 10 Ml Syringe) 10 ml FLUSH ASDIRECTED PRN PRN Reason: Keep Vein Open Last Admin: 06/21/21 10:42 Dose: 10 ml Documented by: Temazepam (Temazepam 7.5 Mg Cap) 7.5 mg PO BEDTIME PRN PRN Reason: Sleep Tramadol HCl (Tramadol 50 Mg Tab) 50 mg PO Q6H PRN PRN Reason: Pain Last Admin: 06/23/21 13:37 Dose: 50 mg Documented by: Discontinued Medications Aspirin (Aspirin 325 Mg Tab.Ec) 325 mg PO ONETIME ONE Stop: 06/12/21 22:46 Last Admin: 06/12/21 23:23 Dose: 325 mg Documented by: Clopidogrel Bisulfate (Clopidogrel 75 Mg Tab) 300 mg PO ONETIME ONE Stop: 06/12/21 22:46 Last Admin: 06/12/21 23:23 Dose: 300 mg Documented by: Diphenhydramine HCl (Diphenhydramine 50 Mg/Ml Sdv) 50 mg IVPUSH ONETIME PRN PRN Reason: hypersensitivity reaction Stop: 06/18/21 20:00 Docusate Sodium (Docusate Sodium 100 Mg Cap) 100 mg PO BID [facility] Last Admin: 06/14/21 08:54 Dose: Not Given Documented by: Enoxaparin Sodium (Enoxaparin 40 Mg/0.4 Ml Syringe) 40 mg SUBCUT DAILY [facility] Last Admin: 06/15/21 08:05 Dose: 40 mg Documented by: Epinephrine HCl (Epinephrine 1 Mg/Ml Sdv) 0.3 mg IM ONETIME PRN PRN Reason: hypersensitivity reaction Stop: 06/18/21 20:00 Famotidine (Famotidine 20 Mg/2 Ml Sdv) 20 mg IVPUSH BID [facility] Last Admin: 06/14/21 08:23 Dose: 20 mg Documented by: Famotidine (Famotidine 20 Mg/2 Ml Sdv) 20 mg IVPUSH ONETIME PRN PRN Reason: hypersensitivity reaction Stop: 06/18/21 20:00 Furosemide (Furosemide 20 Mg Tab) 20 mg PO DAILY PRN PRN Reason: Edema Furosemide (Furosemide 40 Mg/4 Ml Vial) 40 mg IVPUSH TID [facility] Last Admin: 06/13/21 08:37 Dose: 40 mg Documented by: Furosemide (Furosemide 20 Mg/2 Ml Vial) 20 mg IVPUSH DAILY [facility] Last Admin: 06/15/21 08:04 Dose: 20 mg Documented by: Heparin Sodium (Porcine) (Heparin Sodium 5,000 Units/Ml Vial) 5,000 units SUBCUT Q8H [facility] Last Admin: 06/12/21 18:38 Dose: 5,000 units Documented by: Heparin Sodium (Porcine) (Heparin Sodium 5,000 Units/Ml Vial) 4,000 units IVPUSH ONETIME ONE Stop: 06/12/21 23:21 Last Admin: 06/13/21 00:15 Dose: 4,000 units Documented by: Sodium Chloride (Normal Saline) 1,000 mls @ 999 mls/hr IV ONETIME ONE; Protocol Stop: 06/12/21 16:28 Last Admin: 06/12/21 15:46 Dose: 999 mls/hr Documented by: Ceftriaxone Sodium 2 gm/ (Sodium Chloride) 100 mls @ 200 mls/hr IV ONETIME ONE Stop: 06/12/21 16:52 Last Admin: 06/12/21 16:28 Dose: 200 mls/hr Documented by: Ceftriaxone Sodium 2 gm/ (Sodium Chloride) 100 mls @ 200 mls/hr IV Q24H [facility] Vancomycin HCl 2 gm/ Sodium (Chloride) 500 mls @ 250 mls/hr IV ONETIME ONE Stop: 06/12/21 22:59 Last Admin: 06/12/21 22:01 Dose: 250 mls/hr Documented by: Vancomycin HCl 1.25 gm/ Sodium (Chloride) 250 mls @ 250 mls/hr IV Q12H [facility] Heparin Sodium/Dextrose (Heparin 25,000 Units In D5w 500 Ml) 25,000 units in 500 mls @ 20 mls/hr IV TITRATE [facility]; Protocol Last Titration: 06/14/21 04:08 Dose: 4.8 mls/hr Documented by: Piperacillin Sod/Tazobactam (Sod 3.375 gm/ Sodium Chloride) 100 mls @ 25 mls/hr IV Q8H [facility] Fluconazole/Sodium Chloride (200 mg/ Premix) 100 mls @ 100 mls/hr IV Q24H [facility] Last Admin: 06/15/21 08:04 Dose: 100 mls/hr Documented by: Piperacillin Sod/Tazobactam (Sod 4.5 gm/ Sodium Chloride) 100 mls @ 200 mls/hr IV ONETIME ONE Stop: 06/13/21 08:29 Last Admin: 06/13/21 08:37 Dose: 200 mls/hr Documented by: Piperacillin Sod/Tazobactam (Sod 4.5 gm/ Sodium Chloride) 100 mls @ 25 mls/hr IV Q8H [facility] Last Admin: 06/15/21 15:19 Dose: 25 mls/hr Documented by: Vancomycin HCl 1 gm/Vancomycin HCl 250 mg/ Sodium Chloride 250 mls @ 250 mls/hr IV Q12H [facility] Last Admin: 06/14/21 20:51 Dose: 250 mls/hr Documented by: Magnesium Sulfate 2 gm/ Premix 50 mls @ 25 mls/hr IV ONETIME ONE Stop: 06/13/21 11:01 Last Admin: 06/13/21 09:52 Dose: 25 mls/hr Documented by: Potassium Chloride 10 meq/ (Premix) 100 mls @ 100 mls/hr IV ONETIME ONE Stop: 06/13/21 10:27 Last Admin: 06/13/21 11:29 Dose: Not Given Documented by: Potassium Chloride 10 meq/ (Premix) 100 mls @ 100 mls/hr IV ONETIME ONE Stop: 06/13/21 11:59 Potassium Chloride 10 meq/ (Premix) 100 mls @ 100 mls/hr IV ONETIME ONE Stop: 06/13/21 13:59 Last Admin: 06/13/21 12:19 Dose: 100 mls/hr Documented by: Sodium Chloride (Normal Saline) 150 mls @ 50 mls/hr IV ASDIRECTED [facility] Last Admin: 06/13/21 12:19 Dose: 50 mls/hr Documented by: Magnesium Sulfate 4 gm/ Premix 50 mls @ 12.5 mls/hr IV ONETIME ONE Stop: 06/14/21 13:47 Last Admin: 06/14/21 10:28 Dose: 12.5 mls/hr Documented by: Albumin Human (Flexbumin 25%) 12.5 gm in 50 mls @ 100 mls/hr IV ONETIME ONE Stop: 06/15/21 09:20 Last Admin: 06/15/21 09:40 Dose: 80 mls/hr Documented by: Albumin Human (Flexbumin 25%) 12.5 gm in 50 mls @ 100 mls/hr IV ONETIME ONE Stop: 06/15/21 16:29 Last Admin: 06/15/21 15:12 Dose: 100 mls/hr Documented by: Lactated Ringer's (Ringers, Lactated) 1,000 mls @ 75 mls/hr IV ASDIRECTED [facility] Last Admin: 06/15/21 14:56 Dose: 75 mls/hr Documented by: Lactated Ringer's (Ringers, Lactated) 1,000 mls @ 75 mls/hr IV ASDIRECTED [facility] Last Admin: 06/16/21 23:04 Dose: 75 mls/hr Documented by: Magnesium Sulfate 2 gm/ Premix 50 mls @ 25 mls/hr IV ONETIME ONE Stop: 06/16/21 11:04 Last Admin: 06/16/21 09:29 Dose: 25 mls/hr Documented by: Magnesium Sulfate 4 gm/ Premix 50 mls @ 12.5 mls/hr IV ONETIME ONE Stop: 06/17/21 12:34 Last Admin: 06/17/21 09:44 Dose: 12.5 mls/hr Documented by: Magnesium Sulfate 2 gm/ Premix 50 mls @ 25 mls/hr IV ONETIME ONE Stop: 06/18/21 12:40 Last Admin: 06/18/21 10:50 Dose: 25 mls/hr Documented by: CASIRIVIMAB/IMDEVIMAB 10 ml/ (Sodium Chloride) 110 mls @ 220 mls/hr IV ONETIME ONE Stop: 06/18/21 14:59 Last Admin: 06/18/21 14:33 Dose: 220 mls/hr Documented by: Magnesium Sulfate 4 gm/ Premix 50 mls @ 12.5 mls/hr IV ONETIME ONE Stop: 06/20/21 12:10 Last Admin: 06/20/21 09:13 Dose: 12.5 mls/hr Documented by: Magnesium Sulfate 4 gm/ Premix 50 mls @ 12.5 mls/hr IV ONETIME ONE Stop: 06/24/21 13:59 Last Admin: 06/24/21 09:46 Dose: 12.5 mls/hr Documented by: Ibuprofen (Ibuprofen 600 Mg Tab) 600 mg PO Q6H PRN PRN Reason: Pain/Fever Last Admin: 06/20/21 18:46 Dose: 600 mg Documented by: Iopamidol (Iopamidol 755 Mg/Ml 100 Ml Bottle) 100 ml IVPUSH ONETIME ONE Stop: 06/21/21 08:29 Last Admin: 06/21/21 09:45 Dose: 100 ml Documented by: Magnesium Oxide (Magnesium Oxide 400 Mg Tab) 400 mg PO BID [facility] Last Admin: 06/14/21 08:23 Dose: 400 mg Documented by: Methylprednisolone Sodium Succinate (Methylprednisolone Sodium Succinate 125 Mg/2 Ml Sdv) 125 mg IVPUSH ONETIME PRN PRN Reason: hypersensitivity reaction Stop: 06/18/21 20:00 Metoprolol Succinate (Metoprolol Succinate 50 Mg Tab.Er) 50 mg PO DAILY [facility] Last Admin: 06/13/21 08:38 Dose: 50 mg Documented by: Multi-Ingred Cream/Lotion/Oil/Oint (Zinc Oxide 20% Oint 28.35 Gm Tube) 1 gm TOP Q1H [facility] Last Admin: 06/13/21 12:04 Dose: Not Given Documented by: Multi-Ingred Cream/Lotion/Oil/Oint (Zinc Oxide 20% Oint 28.35 Gm Tube) 1 gm TOP DAILY [facility] Stop: 06/14/21 09:01 Last Admin: 06/14/21 08:24 Dose: 1 gm Documented by: Neomycin/Polymyxin/Bacitracin (Bacitracin/Neomycin/Polymyxin B Oint 15 Gm Tube) 0 gm TOP BID [facility] Last Admin: 06/16/21 11:50 Dose: Not Given Documented by: Oxycodone HCl (Oxycodone 5 Mg Tab) 5 mg PO Q6H PRN PRN Reason: Pain Pharmacy Consult (Pharmacy Consult Order) 1 each .XX ASDIRECTED [facility] Polyethylene Glycol (Polyethylene Glycol 3350 Powder 17 Gm Packet) 17 gm PO DAILY [facility] Last Admin: 06/14/21 08:55 Dose: Not Given Documented by: Potassium Chloride (Potassium Chloride 20 Meq Tab.Er) 40 meq PO ONETIME ONE Stop: 06/13/21 09:29 Last Admin: 06/13/21 10:37 Dose: 40 meq Documented by: Potassium Chloride (Potassium Chloride 20 Meq Tab.Er) 20 meq PO ONETIME ONE Stop: 06/14/21 09:36 Last Admin: 06/14/21 10:28 Dose: 20 meq Documented by: Potassium Chloride (Potassium Chloride 20 Meq Tab.Er) 20 meq PO ONETIME ONE Stop: 06/15/21 17:01 Last Admin: 06/15/21 18:30 Dose: 20 meq Documented by: Sodium Chloride (Sodium Chloride 0.9% 10 Ml Syringe) 30 ml FLUSH ASDIRECTED [facility] Stop: 06/18/21 20:00 Trimethoprim/Sulfamethoxazole (Sulfamethoxazole/Trimethoprim 800-160 Mg Tab) 1 tab PO BID [facility] Last Admin: 06/21/21 10:15 Dose: 1 tab Documented by: Vancomycin HCl (Pharmacy To Dose - Vancomycin) 1 dose .XX ASDIRECTED [facility] Vancomycin HCl (Vancomycin 1 Gm Sdv) Confirm Administered Dose 2 gm .ROUTE .STK- MED ONE Stop: 06/12/21 21:43 Last Admin: 06/12/21 21:55 Dose: Not Given Documented by: - Exam Quality Assessment: No: Supplemental Oxygen Urinary Catheter Total Time: 1Days 23Hours General: Alert, Oriented HEENT: Pupils Equal, Mucous Membr. Moist/[place] Neck: Supple Lungs: Normal Respiratory Effort, Crackles Cardiovascular: Regular Rate, Regular Rhythm GI/Abdominal Exam: Normal Bowel Sounds, Soft, Non-Tender, No Distention Extremities: Other (Unna boots) - Patient Data Lab Results Last 24 hrs: Laboratory Results - last 24 hr 06/24/21 Range/Units 11:35 Urine Color Yellow (Yellow) Urine Appearance Clear (Clear) Urine pH 7.0 (5.0-8.0) Ur Specific [place] 1.020 (1.005-1.030) Urine Protein Negative (Negative) Urine Glucose (UA) Negative (Negative) Urine Ketones Negative (Negative) Urine Occult Blood Trace-intact H (Negative) Urine Nitrite Negative (Negative) Urine Bilirubin Negative (Negative) Urine Urobilinogen 0.2 (0.2-1.0) Ur Leukocyte Esterase Negative (Negative) Urine RBC 0-5 (0-5) /hpf Urine WBC 0-5 (0-5) /hpf Ur Squamous Epith Cells 0-5 (0-5) /hpf Urine Bacteria Rare (FEW) /hpf Urine Mucus Not seen (FEW) /hpf Result Diagrams: 06/24/21 05:50 06/24/21 05:50 Sepsis Event Note - Evaluation Sepsis Screening Result: No Definite Risk - Focused Exam Vital Signs: Vital Signs Temp Pulse Resp BP Pulse Ox 06/25/21 08:56 97.9 F 52 L 18 154/62 H 95 06/25/21 05:39 98.2 F 58 L 20 147/79 H 97 - Problem List & Annotations (1) Traumatic arthropathy, right hand SNOMED Code(s): 849916767, 439411675 Code(s): M12.541 - TRAUMATIC ARTHROPATHY, RIGHT HAND Status: Acute Current Visit: Yes (2) Acute kidney injury SNOMED Code(s): 62003854, 18810697 Code(s): N17.9 - ACUTE KIDNEY FAILURE, UNSPECIFIED Status: Acute Current Visit: Yes (3) Cellulitis of both lower extremities SNOMED Code(s): 211866299 Code(s): L03.115 - CELLULITIS OF RIGHT LOWER LIMB; L03.116 - CELLULITIS OF LEFT LOWER LIMB Status: Acute Current Visit: Yes (4) Dependent edema SNOMED Code(s): 302774904 Code(s): R60.9 - EDEMA, UNSPECIFIED Status: Acute Current Visit: Yes (5) Fall at home SNOMED Code(s): 93689374 Code(s): W19.XXXA - UNSPECIFIED FALL, INITIAL ENCOUNTER; Y92.009 - UNSP PLACE IN UNSP NON-INSTITUT (PRIVATE) RESIDENCE PLACE Status: Acute Current Visit: No (6) Hypokalemia SNOMED Code(s): 59683108 Code(s): E87.6 - HYPOKALEMIA Status: Acute Current Visit: Yes (7) Hypomagnesemia SNOMED Code(s): 989252906 Code(s): E83.42 - HYPOMAGNESEMIA Status: Acute Current Visit: Yes (8) UTI (urinary tract infection) SNOMED Code(s): 67001166 Code(s): N39.0 - URINARY TRACT INFECTION, SITE NOT SPECIFIED Status: Acute Current Visit: Yes Qualifiers: Urinary tract infection type: site unspecified Hematuria presence: with hematuria Qualified Code(s): N39.0 - Urinary tract infection, site not specified; R31.9 - Hematuria, unspecified (9) Elevated CK SNOMED Code(s): 540821584 Code(s): R74.8 - ABNORMAL LEVELS OF OTHER SERUM ENZYMES Status: Resolved Current Visit: Yes - Problem List Review Problem List Initiated/Reviewed/Updated: Yes - My Orders Last 24 Hours: My Active Orders 06/25/21 10:57 Bladder Training Program [RC] ROUTINE 06/26/21 05:11 CMP [COMPREHENSIVE METABOLIC PN,CMP] [CHEM] AM MAGNESIUM [CHEM] AM PHOSPHORUS [CHEM] AM - Plan Plan:: Generalized weakness and debility Pt will need more PT/OT and eventually SNF placement No significant change Protein calorie malnutrition -Albumin stable at 2.3 nutritional supplementation Dietary following Dementia Pt was seen by speech therapy and as per her cognitive eval she has at least mild to moderated cognitive decline in her executive functions. She will benefit from a SNF placement and hopefully her mental status improves as she recovers from her recent infection and sepsis. Urge incontinence PT to evaluate and treat Avoid diuretics if possible Recheck UA Mild loose stools with stool incontinence Likely worsened by mag oxide May consider a chelated magnesium as outpatient Encouraged improvement in diet to magnesium rich foods. Covid positive Patient is asymptomatic. Screening done for discharge to long-term care facility. Question if patient may have had symptomatic Covid over 2 weeks ago per her history. -Regen-CoV given I spoke with Ivania her sister who is her healthcare proxy to provide information about [facility] for Yana Seo. I have offered to them the "fax sheet for patients and parents/caregivers" for [facility] to read and review. I stated that therapy has been approved by an emergency use authorization process and has not fully been FDA reviewed or approved. I shared potential risks from the therapy including anaphylaxis and hypotension. I discussed there are other potential treatment options that are currently not FDA approved to treat COVID- 19. Offered opportunity to ask questions and all questions were answered. Ivania voiced understanding and agreed to proceed with treatment for Yana Seo sepsis without shock-elevated white count - resolved. mrsa positive nasal swab. added fluconazole due to the severalty of a pityriasis versicolor and appearance on genital rash with satellite lesions -Fevers have resolved -White count now normal -Currently on Septra -Finished fluconazole -Urine culture positive for Klebsiella pneumoniae sensitive to Septra UTI acute- resolved -history of incontinence -Blood cultures negative -Urine culture: Klebsiella pneumonia - multi-sensitive ?acute CHF exacerbation-Pulmonary congestion on bilateral cxr, bilateral noted on chest x-ray, 1 L of fluids was given in the ER History of questionable CHF, when CPK returns may need to alter fluids and diuresis. -Echocardiogram: 1. Left ventricular ejection fraction, by visual estimation, is 60 to 65%. 2. Normal left ventricular systolic function. 3. Mild septal left ventricular hypertrophy. 4. Normal pattern of LV diastolic filling. 5. Mildly dilated left atrium. 6. Mildly dilated right atrium. 7. Mild mitral valve regurgitation. 8. Trace tricuspid valve regurgitation. 9. The right ventricular systolic pressure is probably normal. 10. No regional wall motion abnormalities -Lower extremity edema is most likely secondary to dependent edema -Kidney function slightly improved -Lasix on hold -Stop fluids Elevated troponin-likely secondary to troponin leak, -Echocardiogram showed no wall motion abnormalities -Plt now 80,000 -Stopped Lovenox Nausea and vomiting-resolved Elevated LFT-improved: Concern that it may be associated with rhabdomyolysis with pending CPK, or secondary to CHF exacerbation with BNP pending, pending overall work-up. Right upper quadrant ultrasound performed: Large 4.5 cm gallstone with increased common bile duct dilatation at 1.1 cm. This biliary duct dilatation is an interval change from prior exam. -Total bilirubin returned to normal of 0.9 and albumin improved to 2.3 enzymes improved. -Enzymes are improving, ALT is improving is still elevated at 229. -She is not a surgical candidate at this time and she is not symptomatic. -Concern Diflucan could have caused worsening of LFTs. -Liver enzymes have improved -Diflucan completed -Encouraged improved diet. Dietary consult Thrombocytopenia -resolved Hypertension-continue metoprolol. [place] Asthma-asymptomatic, will add as needed albuterol if necessary Chronic constipation-stop Colace and MiraLAX because of current diarrhea -Patient is having loose and watery stools. Review of her old chart shows that it is likely chronic now. Will stop her oral magnesium and treat with IV magnesium while in the hospital. Stop Colace and MiraLAX. Rhabdomyolysis - resolved, -CK has normalized -Renal function is improving -Continue to monitor. Metabolic encephalopathy -resolved -Mentation now is likely secondary to longstanding dementia -Placement pending Decubitus bilateral lower extremity -Physical therapy is doing daily dressing changes with Unna boots NSTEMI- heparin, plavix, asa started when troponin increase. family is realistic and no transfer will be done -Continue aspirin -Heparin stopped secondary to thrombocytopenia -Likely a type II MD secondary to sepsis -No wall motion abnormalities Pityriasis versicolor- and generalized fungal infection-fluconazole finished Anxiety -ativan 0.5 prn bid added IV Chronic hypomagnesemia -Stop oral magnesium while hospitalized secondary to diarrhea -Supplement as needed ppx Lovenox DNR/DNI Hospital stay greater than 96 hours secondary to placement issues, long weekend, slow resolution of sepsis and acute renal insufficiency.
[2021-06-26] MEDS: Enoxaparin 40 MG/0.4 ML Syringe SUBCUT SCH (09:43)
[2021-06-26] MEDS: Nystatin Topical Powder 15 GM Bottle TOP SCH ×4 (09:44→22:03)
[2021-06-26] MEDS: Metoprolol Succinate 50 MG Tab.ER PO SCH (09:44)
[2021-06-26] MEDS: Magnesium Oxide 400 MG Tab PO SCH ×2 (09:47→22:03)
[2021-06-26] MEDS: Aspirin 81 MG Tab.EC PO SCH (09:47)
[2021-06-26] MEDS: Potassium Chloride 20 MEQ Tab.ER PO SCH (09:48)
[2021-06-26] MEDS ORDERED: MIRABEGRON 25 MG PO SCH (11:30)
--- NOTE | 2021-06-26 11:57 | PCM.PN ---
- General Info Date of Service: 06/26/21 Admission Dx/Problem (Free Text): Admission Diagnosis/Problem Admission Diagnosis/Problem Sepsis Subjective Update: Patient is doing well. She is complaining of urinary incontinence. Her Myrbetriq was held during hospitalization. Functional Status: Reports: Pain Controlled - Review of Systems General: Reports: No Symptoms HEENT: Reports: No Symptoms Pulmonary: Reports: No Symptoms Genitourinary: Reports: Urgency, Incontinence - Patient Data Vitals - Most Recent: Last Vital Signs Temp 97.5 F 06/26/21 07:45 Pulse 62 06/26/21 09:44 Resp 18 06/26/21 07:45 BP 134/65 06/26/21 09:44 Pulse Ox 92 L 06/26/21 07:45 Weight - Most Recent: 228 lb 3.2 oz I&O - Last 24 Hours: Intake & Output 06/25/21 06/26/21 06/26/21 22:59 06:59 14:59 Intake Total 1100 420 Output Total 1200 Balance -100 420 Lab Results Last 24 Hours: Laboratory Results - last 24 hr 06/26/21 Range/Units 07:35 Sodium 141 (136-145) mEq/L Potassium 4.1 (3.5-5.1) mEq/L Chloride 109 H (98-107) mEq/L Carbon Dioxide 29 (21-32) mEq/L Anion Gap 7.1 (5-15) BUN 32 H (7-18) mg/dL Creatinine 0.9 (0.55-1.02) mg/dL Est Cr Clr Drug Dosing 45.20 mL/min Estimated GFR (MDRD) > 60 (>60) mL/min BUN/Creatinine Ratio 35.6 H (14-18) Glucose 90 (70-99) mg/dL Calcium 8.9 (8.5-10.1) mg/dL Phosphorus 3.4 (2.6-4.7) mg/dL Magnesium 1.7 L (1.8-2.4) mg/dL Total Bilirubin 0.8 (0.2-1.0) mg/dL AST 18 (15-37) U/L ALT 20 (14-59) U/L Alkaline Phosphatase 127 H (46-116) U/L Total Protein 5.5 L (6.4-8.2) g/dl Albumin 2.3 L (3.4-5.0) g/dl Globulin 3.2 gm/dL Albumin/Globulin Ratio 0.7 L (1-2) Med Orders - Current: Current Medications Acetaminophen (Acetaminophen 325 Mg Tab) 650 mg PO Q4H PRN PRN Reason: Pain (Mild 1-3)/fever Last Admin: 06/21/21 00:07 Dose: 650 mg Documented by: Acetaminophen (Acetaminophen 650 Mg Supp) 650 mg RECTAL Q4H PRN PRN Reason: Fever Last Admin: 06/12/21 18:39 Dose: 650 mg Documented by: Aspirin (Aspirin 81 Mg Tab.Ec) 81 mg PO DAILY [facility] Last Admin: 06/26/21 09:47 Dose: 81 mg Documented by: Docusate Sodium (Docusate Sodium 100 Mg Cap) 100 mg PO Q12H PRN PRN Reason: Constipation Last Admin: 06/19/21 20:37 Dose: 100 mg Documented by: Enoxaparin Sodium (Enoxaparin 40 Mg/0.4 Ml Syringe) 40 mg SUBCUT DAILY [facility] Last Admin: 06/26/21 09:43 Dose: 40 mg Documented by: Lorazepam (Lorazepam 2 Mg/Ml Sdv) 0.5 mg IVPUSH BID PRN PRN Reason: Anxiety Last Admin: 06/21/21 09:01 Dose: 0.5 mg Documented by: Magnesium Oxide (Magnesium Oxide 400 Mg Tab) 400 mg PO BID [facility] Last Admin: 06/26/21 09:47 Dose: 400 mg Documented by: Metoprolol Succinate (Metoprolol Succinate 50 Mg Tab.Er) 50 mg PO DAILY [facility] Last Admin: 06/26/21 09:44 Dose: 50 mg Documented by: Nystatin (Nystatin Topical Powder 15 Gm Bottle) 0 gm TOP QID [facility] Last Admin: 06/26/21 09:44 Dose: 1 applic Documented by: Ondansetron HCl (Ondansetron 4 Mg Tab.Dis) 4 mg PO Q4H PRN PRN Reason: nausea, able to take PO Mirabegron 25 Mg Tab .Er Patient's Own Med 0 each PO DAILY [facility] Potassium Chloride (Potassium Chloride 20 Meq Tab.Er) 20 meq PO DAILY [facility] Last Admin: 06/26/21 09:48 Dose: 20 meq Documented by: Sodium Chloride (Sodium Chloride 0.9% 10 Ml Syringe) 10 ml FLUSH ASDIRECTED PRN PRN Reason: Keep Vein Open Last Admin: 06/21/21 10:42 Dose: 10 ml Documented by: Temazepam (Temazepam 7.5 Mg Cap) 7.5 mg PO BEDTIME PRN PRN Reason: Sleep Tramadol HCl (Tramadol 50 Mg Tab) 50 mg PO Q6H PRN PRN Reason: Pain Last Admin: 06/23/21 13:37 Dose: 50 mg Documented by: Discontinued Medications Aspirin (Aspirin 325 Mg Tab.Ec) 325 mg PO ONETIME ONE Stop: 06/12/21 22:46 Last Admin: 06/12/21 23:23 Dose: 325 mg Documented by: Clopidogrel Bisulfate (Clopidogrel 75 Mg Tab) 300 mg PO ONETIME ONE Stop: 06/12/21 22:46 Last Admin: 06/12/21 23:23 Dose: 300 mg Documented by: Diphenhydramine HCl (Diphenhydramine 50 Mg/Ml Sdv) 50 mg IVPUSH ONETIME PRN PRN Reason: hypersensitivity reaction Stop: 06/18/21 20:00 Docusate Sodium (Docusate Sodium 100 Mg Cap) 100 mg PO BID [facility] Last Admin: 06/14/21 08:54 Dose: Not Given Documented by: Enoxaparin Sodium (Enoxaparin 40 Mg/0.4 Ml Syringe) 40 mg SUBCUT DAILY [facility] Last Admin: 06/15/21 08:05 Dose: 40 mg Documented by: Epinephrine HCl (Epinephrine 1 Mg/Ml Sdv) 0.3 mg IM ONETIME PRN PRN Reason: hypersensitivity reaction Stop: 06/18/21 20:00 Famotidine (Famotidine 20 Mg/2 Ml Sdv) 20 mg IVPUSH BID [facility] Last Admin: 06/14/21 08:23 Dose: 20 mg Documented by: Famotidine (Famotidine 20 Mg/2 Ml Sdv) 20 mg IVPUSH ONETIME PRN PRN Reason: hypersensitivity reaction Stop: 06/18/21 20:00 Furosemide (Furosemide 20 Mg Tab) 20 mg PO DAILY PRN PRN Reason: Edema Furosemide (Furosemide 40 Mg/4 Ml Vial) 40 mg IVPUSH TID [facility] Last Admin: 06/13/21 08:37 Dose: 40 mg Documented by: Furosemide (Furosemide 20 Mg/2 Ml Vial) 20 mg IVPUSH DAILY [facility] Last Admin: 06/15/21 08:04 Dose: 20 mg Documented by: Heparin Sodium (Porcine) (Heparin Sodium 5,000 Units/Ml Vial) 5,000 units SUBCUT Q8H [facility] Last Admin: 06/12/21 18:38 Dose: 5,000 units Documented by: Heparin Sodium (Porcine) (Heparin Sodium 5,000 Units/Ml Vial) 4,000 units IVPUSH ONETIME ONE Stop: 06/12/21 23:21 Last Admin: 06/13/21 00:15 Dose: 4,000 units Documented by: Sodium Chloride (Normal Saline) 1,000 mls @ 999 mls/hr IV ONETIME ONE; Protocol Stop: 06/12/21 16:28 Last Admin: 06/12/21 15:46 Dose: 999 mls/hr Documented by: Ceftriaxone Sodium 2 gm/ (Sodium Chloride) 100 mls @ 200 mls/hr IV ONETIME ONE Stop: 06/12/21 16:52 Last Admin: 06/12/21 16:28 Dose: 200 mls/hr Documented by: Ceftriaxone Sodium 2 gm/ (Sodium Chloride) 100 mls @ 200 mls/hr IV Q24H [facility] Vancomycin HCl 2 gm/ Sodium (Chloride) 500 mls @ 250 mls/hr IV ONETIME ONE Stop: 06/12/21 22:59 Last Admin: 06/12/21 22:01 Dose: 250 mls/hr Documented by: Vancomycin HCl 1.25 gm/ Sodium (Chloride) 250 mls @ 250 mls/hr IV Q12H [facility] Heparin Sodium/Dextrose (Heparin 25,000 Units In D5w 500 Ml) 25,000 units in 500 mls @ 20 mls/hr IV TITRATE [facility]; Protocol Last Titration: 06/14/21 04:08 Dose: 4.8 mls/hr Documented by: Piperacillin Sod/Tazobactam (Sod 3.375 gm/ Sodium Chloride) 100 mls @ 25 mls/hr IV Q8H [facility] Fluconazole/Sodium Chloride (200 mg/ Premix) 100 mls @ 100 mls/hr IV Q24H [facility] Last Admin: 06/15/21 08:04 Dose: 100 mls/hr Documented by: Piperacillin Sod/Tazobactam (Sod 4.5 gm/ Sodium Chloride) 100 mls @ 200 mls/hr IV ONETIME ONE Stop: 06/13/21 08:29 Last Admin: 06/13/21 08:37 Dose: 200 mls/hr Documented by: Piperacillin Sod/Tazobactam (Sod 4.5 gm/ Sodium Chloride) 100 mls @ 25 mls/hr IV Q8H [facility] Last Admin: 06/15/21 15:19 Dose: 25 mls/hr Documented by: Vancomycin HCl 1 gm/Vancomycin HCl 250 mg/ Sodium Chloride 250 mls @ 250 mls/hr IV Q12H [facility] Last Admin: 06/14/21 20:51 Dose: 250 mls/hr Documented by: Magnesium Sulfate 2 gm/ Premix 50 mls @ 25 mls/hr IV ONETIME ONE Stop: 06/13/21 11:01 Last Admin: 06/13/21 09:52 Dose: 25 mls/hr Documented by: Potassium Chloride 10 meq/ (Premix) 100 mls @ 100 mls/hr IV ONETIME ONE Stop: 06/13/21 10:27 Last Admin: 06/13/21 11:29 Dose: Not Given Documented by: Potassium Chloride 10 meq/ (Premix) 100 mls @ 100 mls/hr IV ONETIME ONE Stop: 06/13/21 11:59 Potassium Chloride 10 meq/ (Premix) 100 mls @ 100 mls/hr IV ONETIME ONE Stop: 06/13/21 13:59 Last Admin: 06/13/21 12:19 Dose: 100 mls/hr Documented by: Sodium Chloride (Normal Saline) 150 mls @ 50 mls/hr IV ASDIRECTED [facility] Last Admin: 06/13/21 12:19 Dose: 50 mls/hr Documented by: Magnesium Sulfate 4 gm/ Premix 50 mls @ 12.5 mls/hr IV ONETIME ONE Stop: 06/14/21 13:47 Last Admin: 06/14/21 10:28 Dose: 12.5 mls/hr Documented by: Albumin Human (Flexbumin 25%) 12.5 gm in 50 mls @ 100 mls/hr IV ONETIME ONE Stop: 06/15/21 09:20 Last Admin: 06/15/21 09:40 Dose: 80 mls/hr Documented by: Albumin Human (Flexbumin 25%) 12.5 gm in 50 mls @ 100 mls/hr IV ONETIME ONE Stop: 06/15/21 16:29 Last Admin: 06/15/21 15:12 Dose: 100 mls/hr Documented by: Lactated Ringer's (Ringers, Lactated) 1,000 mls @ 75 mls/hr IV ASDIRECTED [facility] Last Admin: 06/15/21 14:56 Dose: 75 mls/hr Documented by: Lactated Ringer's (Ringers, Lactated) 1,000 mls @ 75 mls/hr IV ASDIRECTED [facility] Last Admin: 06/16/21 23:04 Dose: 75 mls/hr Documented by: Magnesium Sulfate 2 gm/ Premix 50 mls @ 25 mls/hr IV ONETIME ONE Stop: 06/16/21 11:04 Last Admin: 06/16/21 09:29 Dose: 25 mls/hr Documented by: Magnesium Sulfate 4 gm/ Premix 50 mls @ 12.5 mls/hr IV ONETIME ONE Stop: 06/17/21 12:34 Last Admin: 06/17/21 09:44 Dose: 12.5 mls/hr Documented by: Magnesium Sulfate 2 gm/ Premix 50 mls @ 25 mls/hr IV ONETIME ONE Stop: 06/18/21 12:40 Last Admin: 06/18/21 10:50 Dose: 25 mls/hr Documented by: CASIRIVIMAB/IMDEVIMAB 10 ml/ (Sodium Chloride) 110 mls @ 220 mls/hr IV ONETIME ONE Stop: 06/18/21 14:59 Last Admin: 06/18/21 14:33 Dose: 220 mls/hr Documented by: Magnesium Sulfate 4 gm/ Premix 50 mls @ 12.5 mls/hr IV ONETIME ONE Stop: 06/20/21 12:10 Last Admin: 06/20/21 09:13 Dose: 12.5 mls/hr Documented by: Magnesium Sulfate 4 gm/ Premix 50 mls @ 12.5 mls/hr IV ONETIME ONE Stop: 06/24/21 13:59 Last Admin: 06/24/21 09:46 Dose: 12.5 mls/hr Documented by: Ibuprofen (Ibuprofen 600 Mg Tab) 600 mg PO Q6H PRN PRN Reason: Pain/Fever Last Admin: 06/20/21 18:46 Dose: 600 mg Documented by: Iopamidol (Iopamidol 755 Mg/Ml 100 Ml Bottle) 100 ml IVPUSH ONETIME ONE Stop: 06/21/21 08:29 Last Admin: 06/21/21 09:45 Dose: 100 ml Documented by: Magnesium Oxide (Magnesium Oxide 400 Mg Tab) 400 mg PO BID [facility] Last Admin: 06/14/21 08:23 Dose: 400 mg Documented by: Methylprednisolone Sodium Succinate (Methylprednisolone Sodium Succinate 125 Mg/2 Ml Sdv) 125 mg IVPUSH ONETIME PRN PRN Reason: hypersensitivity reaction Stop: 06/18/21 20:00 Metoprolol Succinate (Metoprolol Succinate 50 Mg Tab.Er) 50 mg PO DAILY [facility] Last Admin: 06/13/21 08:38 Dose: 50 mg Documented by: Multi-Ingred Cream/Lotion/Oil/Oint (Zinc Oxide 20% Oint 28.35 Gm Tube) 1 gm TOP Q1H [facility] Last Admin: 06/13/21 12:04 Dose: Not Given Documented by: Multi-Ingred Cream/Lotion/Oil/Oint (Zinc Oxide 20% Oint 28.35 Gm Tube) 1 gm TOP DAILY [facility] Stop: 06/14/21 09:01 Last Admin: 06/14/21 08:24 Dose: 1 gm Documented by: Neomycin/Polymyxin/Bacitracin (Bacitracin/Neomycin/Polymyxin B Oint 15 Gm Tube) 0 gm TOP BID [facility] Last Admin: 06/16/21 11:50 Dose: Not Given Documented by: Oxycodone HCl (Oxycodone 5 Mg Tab) 5 mg PO Q6H PRN PRN Reason: Pain Pharmacy Consult (Pharmacy Consult Order) 1 each .XX ASDIRECTED [facility] Polyethylene Glycol (Polyethylene Glycol 3350 Powder 17 Gm Packet) 17 gm PO DAILY [facility] Last Admin: 06/14/21 08:55 Dose: Not Given Documented by: Potassium Chloride (Potassium Chloride 20 Meq Tab.Er) 40 meq PO ONETIME ONE Stop: 06/13/21 09:29 Last Admin: 06/13/21 10:37 Dose: 40 meq Documented by: Potassium Chloride (Potassium Chloride 20 Meq Tab.Er) 20 meq PO ONETIME ONE Stop: 06/14/21 09:36 Last Admin: 06/14/21 10:28 Dose: 20 meq Documented by: Potassium Chloride (Potassium Chloride 20 Meq Tab.Er) 20 meq PO ONETIME ONE Stop: 06/15/21 17:01 Last Admin: 06/15/21 18:30 Dose: 20 meq Documented by: Sodium Chloride (Sodium Chloride 0.9% 10 Ml Syringe) 30 ml FLUSH ASDIRECTED [facility] Stop: 06/18/21 20:00 Trimethoprim/Sulfamethoxazole (Sulfamethoxazole/Trimethoprim 800-160 Mg Tab) 1 tab PO BID [facility] Last Admin: 06/21/21 10:15 Dose: 1 tab Documented by: Vancomycin HCl (Pharmacy To Dose - Vancomycin) 1 dose .XX ASDIRECTED [facility] Vancomycin HCl (Vancomycin 1 Gm Sdv) Confirm Administered Dose 2 gm .ROUTE .STK- MED ONE Stop: 06/12/21 21:43 Last Admin: 06/12/21 21:55 Dose: Not Given Documented by: - Exam Quality Assessment: No: Supplemental Oxygen Urinary Catheter Total Time: 1Days 23Hours General: Alert, Oriented HEENT: Pupils Equal, Mucous Membr. Moist/[place]: Supple Lungs: Normal Respiratory Effort, Crackles (Bibasilar) Cardiovascular: Regular Rate, Regular Rhythm GI/Abdominal Exam: Normal Bowel Sounds, Soft, Non-Tender, No Distention Extremities: Normal Inspection, Normal Range of Motion, Non-Tender, No Pedal [place], Normal Capillary Refill Skin: Warm, Dry, Intact Psy/Mental Status: Alert, Normal Affect, Normal Mood - Patient Data Lab Results Last 24 hrs: Laboratory Results - last 24 hr 06/26/21 Range/Units 07:35 Sodium 141 (136-145) mEq/L Potassium 4.1 (3.5-5.1) mEq/L Chloride 109 H (98-107) mEq/L Carbon Dioxide 29 (21-32) mEq/L Anion Gap 7.1 (5-15) BUN 32 H (7-18) mg/dL Creatinine 0.9 (0.55-1.02) mg/dL Est Cr Clr Drug Dosing 45.20 mL/min Estimated GFR (MDRD) > 60 (>60) mL/min BUN/Creatinine Ratio 35.6 H (14-18) Glucose 90 (70-99) mg/dL Calcium 8.9 (8.5-10.1) mg/dL Phosphorus 3.4 (2.6-4.7) mg/dL Magnesium 1.7 L (1.8-2.4) mg/dL Total Bilirubin 0.8 (0.2-1.0) mg/dL AST 18 (15-37) U/L ALT 20 (14-59) U/L Alkaline Phosphatase 127 H (46-116) U/L Total Protein 5.5 L (6.4-8.2) g/dl Albumin 2.3 L (3.4-5.0) g/dl Globulin 3.2 gm/dL Albumin/Globulin Ratio 0.7 L (1-2) Result Diagrams: 06/24/21 05:50 06/26/21 07:35 Sepsis Event Note - Evaluation Sepsis Screening Result: No Definite Risk - Focused Exam Vital Signs: Vital Signs Temp Pulse Resp BP Pulse Ox 06/26/21 09:44 62 134/65 06/26/21 07:45 97.5 F 62 18 150/97 H 92 L 06/26/21 03:10 97.5 F 66 18 134/61 92 L 06/26/21 00:42 97.9 F 64 14 119/76 95 - Problem List & Annotations (1) Traumatic arthropathy, right hand SNOMED Code(s): 562151581, 073339583 Code(s): M12.541 - TRAUMATIC ARTHROPATHY, RIGHT HAND Status: Acute Current Visit: Yes (2) Acute kidney injury SNOMED Code(s): 26491957, 61205387 Code(s): N17.9 - ACUTE KIDNEY FAILURE, UNSPECIFIED Status: Acute Current Visit: Yes (3) Cellulitis of both lower extremities SNOMED Code(s): 221476032 Code(s): L03.115 - CELLULITIS OF RIGHT LOWER LIMB; L03.116 - CELLULITIS OF LE FT LOWER LIMB Status: Acute Current Visit: Yes (4) Dependent edema SNOMED Code(s): 571996608 Code(s): R60.9 - EDEMA, UNSPECIFIED Status: Acute Current Visit: Yes (5) Fall at home SNOMED Code(s): 34762273 Code(s): W19.XXXA - UNSPECIFIED FALL, INITIAL ENCOUNTER; Y92.009 - UNSP PLACE IN UNSP NON-INSTITUT (PRIVATE) RESIDENCE PLACE Status: Acute Current Visit: No (6) Hypokalemia SNOMED Code(s): 02962237 Code(s): E87.6 - HYPOKALEMIA Status: Acute Current Visit: Yes (7) Hypomagnesemia SNOMED Code(s): 234839082 Code(s): E83.42 - HYPOMAGNESEMIA Status: Acute Current Visit: Yes (8) UTI (urinary tract infection) SNOMED Code(s): 32470471 Code(s): N39.0 - URINARY TRACT INFECTION, SITE NOT SPECIFIED Status: Acute Current Visit: Yes Qualifiers: Urinary tract infection type: site unspecified Hematuria presence: with hematuria Qualified Code(s): N39.0 - Urinary tract infection, site not specified; R31.9 - Hematuria, unspecified (9) Elevated CK SNOMED Code(s): 958545038 Code(s): R74.8 - ABNORMAL LEVELS OF OTHER SERUM ENZYMES Status: Resolved Current Visit: Yes - Problem List Review Problem List Initiated/Reviewed/Updated: Yes - My Orders Last 24 Hours: My Active Orders 06/25/21 10:57 Bladder Training Program [RC] ROUTINE 06/26/21 11:30 Patient's Own Medication [Ptom] 0 each PO DAILY - Plan Plan:: Generalized weakness and debility Pt will need more PT/OT and eventually SNF placement No significant change Protein calorie malnutrition -Albumin stable at 2.3 nutritional supplementation Dietary following Dementia Pt was seen by speech therapy and as per her cognitive eval she has at least mild to moderated cognitive decline in her executive functions. She will benefit from a SNF placement and hopefully her mental status improves as she recovers from her recent infection and sepsis. Urge incontinence PT to evaluate and treat Avoid diuretics if possible Recheck UA Start oxybutynin 5 mg nightly Mild loose stools with stool incontinence Likely worsened by mag oxide May consider a chelated magnesium as outpatient Encouraged improvement in diet to magnesium rich foods. Covid positive Patient is asymptomatic. Screening done for discharge to long-term care facility. Question if patient may have had symptomatic Covid over 2 weeks ago per her history. -Regen-CoV given I spoke with Ivania her sister who is her healthcare proxy to provide information about [facility] for Yana Seo. I have offered to them the "fax sheet for patients and parents/caregivers" for [facility] to read and review. I stated that therapy has been approved by an emergency use authorization process and has not fully been FDA reviewed or approved. I shared potential risks from the therapy including anaphylaxis and hypotension. I discussed there are other potential treatment options that are currently not FDA approved to treat COVID- 19. Offered opportunity to ask questions and all questions were answered. Ivania voiced understanding and agreed to proceed with treatment for Yana Seo sepsis without shock-elevated white count - resolved. mrsa positive nasal swab. added fluconazole due to the severalty of a pityriasis versicolor and appearance on genital rash with satellite lesions -Fevers have resolved -White count now normal -Currently on Septra -Finished fluconazole -Urine culture positive for Klebsiella pneumoniae sensitive to Septra UTI acute- resolved -history of incontinence -Blood cultures negative -Urine culture: Klebsiella pneumonia - multi-sensitive ?acute CHF exacerbation-Pulmonary congestion on bilateral cxr, bilateral noted on chest x-ray, 1 L of fluids was given in the ER History of questionable CHF, when CPK returns may need to alter fluids and diuresis. -Echocardiogram: 1. Left ventricular ejection fraction, by visual estimation, is 60 to 65%. 2. Normal left ventricular systolic function. 3. Mild septal left ventricular hypertrophy. 4. Normal pattern of LV diastolic filling. 5. Mildly dilated left atrium. 6. Mildly dilated right atrium. 7. Mild mitral valve regurgitation. 8. Trace tricuspid valve regurgitation. 9. The right ventricular systolic pressure is probably normal. 10. No regional wall motion abnormalities -Lower extremity edema is most likely secondary to dependent edema -Kidney function slightly improved -Lasix on hold -Stop fluids Elevated troponin-likely secondary to troponin leak, -Echocardiogram showed no wall motion abnormalities -Plt now 80,000 -Stopped Lovenox Nausea and vomiting-resolved Elevated LFT-improved: Concern that it may be associated with rhabdomyolysis with pending CPK, or secondary to CHF exacerbation with BNP pending, pending overall work-up. Right upper quadrant ultrasound performed: Large 4.5 cm gallstone with increased common bile duct dilatation at 1.1 cm. This biliary duct dilatation is an interval change from prior exam. -Total bilirubin returned to normal of 0.9 and albumin improved to 2.3 enzymes improved. -Enzymes are improving, ALT is improving is still elevated at 229. -She is not a surgical candidate at this time and she is not symptomatic. -Concern Diflucan could have caused worsening of LFTs. -Liver enzymes have improved -Diflucan completed -Encouraged improved diet. Dietary consult Thrombocytopenia -resolved Hypertension-continue metoprolol. [place] Asthma-asymptomatic, will add as needed albuterol if necessary Chronic constipation-stop Colace and MiraLAX because of current diarrhea -Patient is having loose and watery stools. Review of her old chart shows that it is likely chronic now. Will stop her oral magnesium and treat with IV mag nesium while in the hospital. Stop Colace and MiraLAX. Rhabdomyolysis - resolved, -CK has normalized -Renal function is improving -Continue to monitor. Metabolic encephalopathy -resolved -Mentation now is likely secondary to longstanding dementia -Placement pending Decubitus bilateral lower extremity -Physical therapy is doing daily dressing changes with Unna boots NSTEMI- heparin, plavix, asa started when troponin increase. family is realistic and no transfer will be done -Continue aspirin -Heparin stopped secondary to thrombocytopenia -Likely a type II NV secondary to sepsis -No wall motion abnormalities Pityriasis versicolor- and generalized fungal infection-fluconazole finished Anxiety -ativan 0.5 prn bid added IV Chronic hypomagnesemia -Stop oral magnesium while hospitalized secondary to diarrhea -Supplement as needed ppx Lovenox DNR/DNI Hospital stay greater than 96 hours secondary to placement issues, long weekend, slow resolution of sepsis and acute renal insufficiency.
[2021-06-26] MEDS ORDERED: Magnesium Sulfate/Water 4 GM in Premix Bag 1 BAG IV ONE (14:00)
--- NOTE | 2021-06-26 16:53 | PCM.SN.2 ---
- Free Text/Narrative Note: 1635 in room for IV start. 24 ga. left hand good flush good blood return. out of room at 1650. Time Documentation
[2021-06-26] MEDS: Oxybutynin 5 MG Tab.ER PO SCH (22:03)
[2021-06-27] MEDS: Enoxaparin 40 MG/0.4 ML Syringe SUBCUT SCH (09:20)
[2021-06-27] MEDS: Magnesium Oxide 400 MG Tab PO SCH ×2 (09:20→20:41)
[2021-06-27] MEDS: Potassium Chloride 20 MEQ Tab.ER PO SCH (09:20)
[2021-06-27] MEDS: Aspirin 81 MG Tab.EC PO SCH (09:20)
[2021-06-27] MEDS: Nystatin Topical Powder 15 GM Bottle TOP SCH ×4 (09:21→20:41)
[2021-06-27] MEDS: Metoprolol Succinate 50 MG Tab.ER PO SCH (09:29)
--- NOTE | 2021-06-27 15:16 | PCM.PN ---
- General Info Date of Service: 06/27/21 Admission Dx/Problem (Free Text): Admission Diagnosis/Problem Admission Diagnosis/Problem Sepsis Subjective Update: Patient more fatigued today, but improved urinary issues. Patient was started on oxybutynin last night which is likely causing her fatigue. Other than that patient is doing well without complaints. Functional Status: Reports: Pain Controlled - Review of Systems General: Reports: Fatigue HEENT: Reports: No Symptoms Pulmonary: Reports: No Symptoms Cardiovascular: Reports: No Symptoms Gastrointestinal: Reports: No Symptoms Genitourinary: Reports: No Symptoms Musculoskeletal: Reports: No Symptoms - Patient Data Vitals - Most Recent: Last Vital Signs Temp 98.8 F 06/27/21 09:16 Pulse 59 L 06/27/21 09:29 Resp 18 06/27/21 09:16 BP 133/70 06/27/21 09:29 Pulse Ox 92 L 06/27/21 09:16 Weight - Most Recent: 224 lb 14.4 oz I&O - Last 24 Hours: Intake & Output 06/27/21 06/27/21 06/27/21 06:59 14:59 22:59 Intake Total 625 440 Output Total 1350 Balance -725 440 Med Orders - Current: Current Medications Acetaminophen (Acetaminophen 325 Mg Tab) 650 mg PO Q4H PRN PRN Reason: Pain (Mild 1-3)/fever Last Admin: 06/21/21 00:07 Dose: 650 mg Documented by: Acetaminophen (Acetaminophen 650 Mg Supp) 650 mg RECTAL Q4H PRN PRN Reason: Fever Last Admin: 06/12/21 18:39 Dose: 650 mg Documented by: Aspirin (Aspirin 81 Mg Tab.Ec) 81 mg PO DAILY [facility] Last Admin: 06/27/21 09:20 Dose: 81 mg Documented by: Docusate Sodium (Docusate Sodium 100 Mg Cap) 100 mg PO Q12H PRN PRN Reason: Constipation Last Admin: 06/19/21 20:37 Dose: 100 mg Documented by: Enoxaparin Sodium (Enoxaparin 40 Mg/0.4 Ml Syringe) 40 mg SUBCUT DAILY [facility] Last Admin: 06/27/21 09:20 Dose: 40 mg Documented by: Lorazepam (Lorazepam 2 Mg/Ml Sdv) 0.5 mg IVPUSH BID PRN PRN Reason: Anxiety Last Admin: 06/21/21 09:01 Dose: 0.5 mg Documented by: Magnesium Oxide (Magnesium Oxide 400 Mg Tab) 400 mg PO BID [facility] Last Admin: 06/27/21 09:20 Dose: 400 mg Documented by: Metoprolol Succinate (Metoprolol Succinate 50 Mg Tab.Er) 50 mg PO DAILY [facility] Last Admin: 06/27/21 09:29 Dose: 50 mg Documented by: Nystatin (Nystatin Topical Powder 15 Gm Bottle) 0 gm TOP QID [facility] Last Admin: 06/27/21 13:05 Dose: 1 applic Documented by: Ondansetron HCl (Ondansetron 4 Mg Tab.Dis) 4 mg PO Q4H PRN PRN Reason: nausea, able to take PO Oxybutynin Chloride (Oxybutynin 5 Mg Tab.Er) 5 mg PO BEDTIME [facility] Last Admin: 06/26/21 22:03 Dose: 5 mg Documented by: Potassium Chloride (Potassium Chloride 20 Meq Tab.Er) 20 meq PO DAILY [facility] Last Admin: 06/27/21 09:20 Dose: 20 meq Documented by: Sodium Chloride (Sodium Chloride 0.9% 10 Ml Syringe) 10 ml FLUSH ASDIRECTED PRN PRN Reason: Keep Vein Open Last Admin: 06/21/21 10:42 Dose: 10 ml Documented by: Temazepam (Temazepam 7.5 Mg Cap) 7.5 mg PO BEDTIME PRN PRN Reason: Sleep Tramadol HCl (Tramadol 50 Mg Tab) 50 mg PO Q6H PRN PRN Reason: Pain Last Admin: 06/23/21 13:37 Dose: 50 mg Documented by: Discontinued Medications Aspirin (Aspirin 325 Mg Tab.Ec) 325 mg PO ONETIME ONE Stop: 06/12/21 22:46 Last Admin: 06/12/21 23:23 Dose: 325 mg Documented by: Clopidogrel Bisulfate (Clopidogrel 75 Mg Tab) 300 mg PO ONETIME ONE Stop: 06/12/21 22:46 Last Admin: 06/12/21 23:23 Dose: 300 mg Documented by: Diphenhydramine HCl (Diphenhydramine 50 Mg/Ml Sdv) 50 mg IVPUSH ONETIME PRN PRN Reason: hypersensitivity reaction Stop: 06/18/21 20:00 Docusate Sodium (Docusate Sodium 100 Mg Cap) 100 mg PO BID [facility] Last Admin: 06/14/21 08:54 Dose: Not Given Documented by: Enoxaparin Sodium (Enoxaparin 40 Mg/0.4 Ml Syringe) 40 mg SUBCUT DAILY [facility] Last Admin: 06/15/21 08:05 Dose: 40 mg Documented by: Epinephrine HCl (Epinephrine 1 Mg/Ml Sdv) 0.3 mg IM ONETIME PRN PRN Reason: hypersensitivity reaction Stop: 06/18/21 20:00 Famotidine (Famotidine 20 Mg/2 Ml Sdv) 20 mg IVPUSH BID [facility] Last Admin: 06/14/21 08:23 Dose: 20 mg Documented by: Famotidine (Famotidine 20 Mg/2 Ml Sdv) 20 mg IVPUSH ONETIME PRN PRN Reason: hypersensitivity reaction Stop: 06/18/21 20:00 Furosemide (Furosemide 20 Mg Tab) 20 mg PO DAILY PRN PRN Reason: Edema Furosemide (Furosemide 40 Mg/4 Ml Vial) 40 mg IVPUSH TID [facility] Last Admin: 06/13/21 08:37 Dose: 40 mg Documented by: Furosemide (Furosemide 20 Mg/2 Ml Vial) 20 mg IVPUSH DAILY [facility] Last Admin: 06/15/21 08:04 Dose: 20 mg Documented by: Heparin Sodium (Porcine) (Heparin Sodium 5,000 Units/Ml Vial) 5,000 units SUBCUT Q8H [facility] Last Admin: 06/12/21 18:38 Dose: 5,000 units Documented by: Heparin Sodium (Porcine) (Heparin Sodium 5,000 Units/Ml Vial) 4,000 units IVPUSH ONETIME ONE Stop: 06/12/21 23:21 Last Admin: 06/13/21 00:15 Dose: 4,000 units Documented by: Sodium Chloride (Normal Saline) 1,000 mls @ 999 mls/hr IV ONETIME ONE; Protocol Stop: 06/12/21 16:28 Last Admin: 06/12/21 15:46 Dose: 999 mls/hr Documented by: Ceftriaxone Sodium 2 gm/ (Sodium Chloride) 100 mls @ 200 mls/hr IV ONETIME ONE Stop: 06/12/21 16:52 Last Admin: 06/12/21 16:28 Dose: 200 mls/hr Documented by: Ceftriaxone Sodium 2 gm/ (Sodium Chloride) 100 mls @ 200 mls/hr IV Q24H [facility] Vancomycin HCl 2 gm/ Sodium (Chloride) 500 mls @ 250 mls/hr IV ONETIME ONE Stop: 06/12/21 22:59 Last Admin: 06/12/21 22:01 Dose: 250 mls/hr Documented by: Vancomycin HCl 1.25 gm/ Sodium (Chloride) 250 mls @ 250 mls/hr IV Q12H [facility] Heparin Sodium/Dextrose (Heparin 25,000 Units In D5w 500 Ml) 25,000 units in 500 mls @ 20 mls/hr IV TITRATE [facility]; Protocol Last Titration: 06/14/21 04:08 Dose: 4.8 mls/hr Documented by: Piperacillin Sod/Tazobactam (Sod 3.375 gm/ Sodium Chloride) 100 mls @ 25 mls/hr IV Q8H [facility] Fluconazole/Sodium Chloride (200 mg/ Premix) 100 mls @ 100 mls/hr IV Q24H [facility] Last Admin: 06/15/21 08:04 Dose: 100 mls/hr Documented by: Piperacillin Sod/Tazobactam (Sod 4.5 gm/ Sodium Chloride) 100 mls @ 200 mls/hr IV ONETIME ONE Stop: 06/13/21 08:29 Last Admin: 06/13/21 08:37 Dose: 200 mls/hr Documented by: Piperacillin Sod/Tazobactam (Sod 4.5 gm/ Sodium Chloride) 100 mls @ 25 mls/hr IV Q8H [facility] Last Admin: 06/15/21 15:19 Dose: 25 mls/hr Documented by: Vancomycin HCl 1 gm/Vancomycin HCl 250 mg/ Sodium Chloride 250 mls @ 250 mls/hr IV Q12H [facility] Last Admin: 06/14/21 20:51 Dose: 250 mls/hr Documented by: Magnesium Sulfate 2 gm/ Premix 50 mls @ 25 mls/hr IV ONETIME ONE Stop: 06/13/21 11:01 Last Admin: 06/13/21 09:52 Dose: 25 mls/hr Documented by: Potassium Chloride 10 meq/ (Premix) 100 mls @ 100 mls/hr IV ONETIME ONE Stop: 06/13/21 10:27 Last Admin: 06/13/21 11:29 Dose: Not Given Documented by: Potassium Chloride 10 meq/ (Premix) 100 mls @ 100 mls/hr IV ONETIME ONE Stop: 06/13/21 11:59 Potassium Chloride 10 meq/ (Premix) 100 mls @ 100 mls/hr IV ONETIME ONE Stop: 06/13/21 13:59 Last Admin: 06/13/21 12:19 Dose: 100 mls/hr Documented by: Sodium Chloride (Normal Saline) 150 mls @ 50 mls/hr IV ASDIRECTED [facility] Last Admin: 06/13/21 12:19 Dose: 50 mls/hr Documented by: Magnesium Sulfate 4 gm/ Premix 50 mls @ 12.5 mls/hr IV ONETIME ONE Stop: 06/14/21 13:47 Last Admin: 06/14/21 10:28 Dose: 12.5 mls/hr Documented by: Albumin Human (Flexbumin 25%) 12.5 gm in 50 mls @ 100 mls/hr IV ONETIME ONE Stop: 06/15/21 09:20 Last Admin: 06/15/21 09:40 Dose: 80 mls/hr Documented by: Albumin Human (Flexbumin 25%) 12.5 gm in 50 mls @ 100 mls/hr IV ONETIME ONE Stop: 06/15/21 16:29 Last Admin: 06/15/21 15:12 Dose: 100 mls/hr Documented by: Lactated Ringer's (Ringers, Lactated) 1,000 mls @ 75 [facility] Last Admin: 06/15/21 14:56 Dose: 75 mls/hr Documented by: Lactated Ringer's (Ringers, Lactated) 1,000 mls @ 75 mls[facility] Last Admin: 06/16/21 23:04 Dose: 75 mls/hr Documented by: Magnesium Sulfate 2 gm/ Premix 50 mls @ 25 mls/hr IV ONETIME ONE Stop: 06/16/21 11:04 Last Admin: 06/16/21 09:29 Dose: 25 mls/hr Documented by: Magnesium Sulfate 4 gm/ Premix 50 mls @ 12.5 mls/hr IV ONETIME ONE Stop: 06/17/21 12:34 Last Admin: 06/17/21 09:44 Dose: 12.5 mls/hr Documented by: Magnesium Sulfate 2 gm/ Premix 50 mls @ 25 mls/hr IV ONETIME ONE Stop: 06/18/21 12:40 Last Admin: 06/18/21 10:50 Dose: 25 mls/hr Documented by: CASIRIVIMAB/IMDEVIMAB 10 ml/ (Sodium Chloride) 110 mls @ 220 mls/hr IV ONETIME ONE Stop: 06/18/21 14:59 Last Admin: 06/18/21 14:33 Dose: 220 mls/hr Documented by: Magnesium Sulfate 4 gm/ Premix 50 mls @ 12.5 mls/hr IV ONETIME ONE Stop: 06/20/21 12:10 Last Admin: 06/20/21 09:13 Dose: 12.5 mls/hr Documented by: Magnesium Sulfate 4 gm/ Premix 50 mls @ 12.5 mls/hr IV ONETIME ONE Stop: 06/24/21 13:59 Last Admin: 06/24/21 09:46 Dose: 12.5 mls/hr Documented by: Magnesium Sulfate 4 gm/ Premix 50 mls @ 12.5 mls/hr IV ONETIME ONE Stop: 06/26/21 17:59 Last Admin: 06/26/21 14:50 Dose: 12.5 mls/hr Documented by: Ibuprofen (Ibuprofen 600 Mg Tab) 600 mg PO Q6H PRN PRN Reason: Pain/Fever Last Admin: 06/20/21 18:46 Dose: 600 mg Documented by: Iopamidol (Iopamidol 755 Mg/Ml 100 Ml Bottle) 100 ml IVPUSH ONETIME ONE Stop: 06/21/21 08:29 Last Admin: 06/21/21 09:45 Dose: 100 ml Documented by: Magnesium Oxide (Magnesium Oxide 400 Mg Tab) 400 mg PO BID [facility] Last Admin: 06/14/21 08:23 Dose: 400 mg Documented by: Methylprednisolone Sodium Succinate (Methylprednisolone Sodium Succinate 125 Mg/2 Ml Sdv) 125 mg IVPUSH ONETIME PRN PRN Reason: hypersensitivity reaction Stop: 06/18/21 20:00 Metoprolol Succinate (Metoprolol Succinate 50 Mg Tab.Er) 50 mg PO DAILY [facility] Last Admin: 06/13/21 08:38 Dose: 50 mg Documented by: Multi-Ingred Cream/Lotion/Oil/Oint (Zinc Oxide 20% Oint 28.35 Gm Tube) 1 gm TOP Q1H [facility] Last Admin: 06/13/21 12:04 Dose: Not Given Documented by: Multi-Ingred Cream/Lotion/Oil/Oint (Zinc Oxide 20% Oint 28.35 Gm Tube) 1 gm TOP DAILY [facility] Stop: 06/14/21 09:01 Last Admin: 06/14/21 08:24 Dose: 1 gm Documented by: Neomycin/Polymyxin/Bacitracin (Bacitracin/Neomycin/Polymyxin B Oint 15 Gm Tube) 0 gm TOP BID [facility] Last Admin: 06/16/21 11:50 Dose: Not Given Documented by: Oxycodone HCl (Oxycodone 5 Mg Tab) 5 mg PO Q6H PRN PRN Reason: Pain Mirabegron 25 Mg Tab .Er Patient's Own Med 0 each PO DAILY [facility] Last Admin: 06/26/21 11:30 Dose: Not Given Documented by: Pharmacy Consult (Pharmacy Consult Order) 1 each .XX ASDIRECTED [facility] Polyethylene Glycol (Polyethylene Glycol 3350 Powder 17 Gm Packet) 17 gm PO DAILY [facility] Last Admin: 06/14/21 08:55 Dose: Not Given Documented by: Potassium Chloride (Potassium Chloride 20 Meq Tab.Er) 40 meq PO ONETIME ONE Stop: 06/13/21 09:29 Last Admin: 06/13/21 10:37 Dose: 40 meq Documented by: Potassium Chloride (Potassium Chloride 20 Meq Tab.Er) 20 meq PO ONETIME ONE Stop: 06/14/21 09:36 Last Admin: 06/14/21 10:28 Dose: 20 meq Documented by: Potassium Chloride (Potassium Chloride 20 Meq Tab.Er) 20 meq PO ONETIME ONE Stop: 06/15/21 17:01 Last Admin: 06/15/21 18:30 Dose: 20 meq Documented by: Sodium Chloride (Sodium Chloride 0.9% 10 Ml Syringe) 30 ml FLUSH ASDIRECTED [facility] Stop: 06/18/21 20:00 Trimethoprim/Sulfamethoxazole (Sulfamethoxazole/Trimethoprim 800-160 Mg Tab) 1 tab PO BID [facility] Last Admin: 06/21/21 10:15 Dose: 1 tab Documented by: Vancomycin HCl (Pharmacy To Dose - Vancomycin) 1 dose .XX ASDIRECTED [facility] Vancomycin HCl (Vancomycin 1 Gm Sdv) Confirm Administered Dose 2 gm .ROUTE .STK- MED ONE Stop: 06/12/21 21:43 Last Admin: 06/12/21 21:55 Dose: Not Given Documented by: - Exam Quality Assessment: No: Supplemental Oxygen Urinary Catheter Total Time: 1Days 23Hours General: Alert, Oriented HEENT: Pupils Equal, Mucous Membr. Moist/Lindstrom Neck: Supple Lungs: Normal Respiratory Effort, Crackles (Bibasilar) Cardiovascular: Regular Rate, Regular Rhythm GI/Abdominal Exam: Normal Bowel Sounds, Soft, Non-Tender, No Distention Extremities: Pedal Edema (Unna boots) Skin: Warm, Dry, Intact Psy/Mental Status: Alert, Normal Affect, Normal Mood - Patient Data Result Diagrams: 06/24/21 05:50 06/26/21 07:35 Sepsis Event Note - Evaluation Sepsis Screening Result: No Definite Risk - Focused Exam Vital Signs: Vital Signs Temp Pulse Resp BP Pulse Ox 06/27/21 09:29 59 L 133/70 06/27/21 09:16 98.8 F 59 L 18 133/70 92 L - Problem List & Annotations (1) Traumatic arthropathy, right hand SNOMED Code(s): 366737516, 357405129 Code(s): M12.541 - TRAUMATIC ARTHROPATHY, RIGHT HAND Status: Acute Current Visit: Yes (2) Acute kidney injury SNOMED Code(s): 82714218, 31253686 Code(s): N17.9 - ACUTE KIDNEY FAILURE, UNSPECIFIED Status: Acute Current Visit: Yes (3) Cellulitis of both lower extremities SNOMED Code(s): 138096111 Code(s): L03.115 - CELLULITIS OF RIGHT LOWER LIMB; L03.116 - CELLULITIS OF LEFT LOWER LIMB Status: Acute Current Visit: Yes (4) Dependent edema SNOMED Code(s): 927827454 Code(s): R60.9 - EDEMA, UNSPECIFIED Status: Acute Current Visit: Yes (5) Fall at home SNOMED Code(s): 58603681 Code(s): W19.XXXA - UNSPECIFIED FALL, INITIAL ENCOUNTER; Y92.009 - UNSP PLACE IN UNSP NON-INSTITUT (PRIVATE) RESIDENCE PLACE Status: Acute Current Visit: No (6) Hypokalemia SNOMED Code(s): 28184212 Code(s): E87.6 - HYPOKALEMIA Status: Acute Current Visit: Yes (7) Hypomagnesemia SNOMED Code(s): 855774138 Code(s): E83.42 - HYPOMAGNESEMIA Status: Acute Current Visit: Yes (8) UTI (urinary tract infection) SNOMED Code(s): 24643383 Code(s): N39.0 - URINARY TRACT INFECTION, SITE NOT SPECIFIED Status: Acute Current Visit: Yes Qualifiers: Urinary tract infection type: site unspecified Hematuria presence: with hematuria Qualified Code(s): N39.0 - Urinary tract infection, site not specified; R31.9 - Hematuria, unspecified (9) Elevated CK SNOMED Code(s): 810741826 Code(s): R74.8 - ABNORMAL LEVELS OF OTHER SERUM ENZYMES Status: Resolved Current Visit: Yes - Problem List Review Problem List Initiated/Reviewed/Updated: Yes - My Orders Last 24 Hours: My Active Orders 06/26/21 21:00 Oxybutynin [Oxybutynin ER] 5 mg PO BEDTIME 06/28/21 05:11 CBC WITH AUTO DIFF [HEME] AM CMP [COMPREHENSIVE METABOLIC PN,CMP] [CHEM] AM MAGNESIUM [CHEM] AM PHOSPHORUS [CHEM] AM - Plan Plan:: Generalized weakness and debility Pt will need more PT/OT and eventually SNF placement No significant change Protein calorie malnutrition -Albumin stable at 2.3 nutritional supplementation Dietary following Dementia Pt was seen by speech therapy and as per her cognitive eval she has at least mild to moderated cognitive decline in her executive functions. She will benefit from a SNF placement and hopefully her mental status improves as she recovers from her recent infection and sepsis. Urge incontinence PT to evaluate and treat Avoid diuretics if possible Recheck UA Start oxybutynin 5 mg nightly Mild loose stools with stool incontinence -improved No current complaints Likely worsened by mag oxide May consider a chelated magnesium as outpatient Encouraged improvement in diet to magnesium rich foods. Covid positive Patient is asymptomatic. Screening done for discharge to long-term care facility. Question if patient may have had symptomatic Covid over 2 weeks ago per her history. -[facility]-CoV given I spoke with Ivania her sister who is her healthcare proxy to provide information about [facility] for Yana Seo. I have offered to them the "fax sheet for patients and parents/caregivers" for [facility] to read and review. I stated that therapy has been approved by an emergency use authorization process and has not fully been FDA reviewed or approved. I shared potential risks from the therapy including anaphylaxis and hypotension. I discussed there are other potential treatment options that are currently not FDA approved to treat COVID- 19. Offered opportunity to ask questions and all questions were answered. Ivania voiced understanding and agreed to proceed with treatment for Yana Seo sepsis without shock-elevated white count - resolved. mrsa positive nasal swab. added fluconazole due to the severalty of a pityriasis versicolor and appearance on genital rash with satellite lesions -Fevers have resolved -White count now normal -Currently on Septra -Finished fluconazole -Urine culture positive for Klebsiella pneumoniae sensitive to Septra UTI acute- resolved -history of incontinence -Blood cultures negative -Urine culture: Klebsiella pneumonia - multi-sensitive ?acute CHF exacerbation-Pulmonary congestion on bilateral cxr, bilateral noted on chest x-ray, 1 L of fluids was given in the ER History of questionable CHF, when CPK returns may need to alter fluids and diuresis. -Echocardiogram: 1. Left ventricular ejection fraction, by visual estimation, is 60 to 65%. 2. Normal left ventricular systolic function. 3. Mild septal left ventricular hypertrophy. 4. Normal pattern of LV diastolic filling. 5. Mildly dilated left atrium. 6. Mildly dilated right atrium. 7. Mild mitral valve regurgitation. 8. Trace tricuspid valve regurgitation. 9. The right ventricular systolic pressure is probably normal. 10. No regional wall motion abnormalities -Lower extremity edema is most likely secondary to dependent edema -Kidney function slightly improved -Lasix on hold -Stop fluids Elevated troponin-likely secondary to troponin leak, -Echocardiogram showed no wall motion abnormalities -Plt now 80,000 -Stopped Lovenox Nausea and vomiting-resolved Elevated LFT-improved: Concern that it may be associated with rhabdomyolysis with pending CPK, or secondary to CHF exacerbation with BNP pending, pending overall work-up. Right upper quadrant ultrasound performed: Large 4.5 cm gallstone with increased common bile duct dilatation at 1.1 cm. This biliary duct dilatation is an interval change from prior exam. -Total bilirubin returned to normal of 0.9 and albumin improved to 2.3 enzymes improved. -Enzymes are improving, ALT is improving is still elevated at 229. -She is not a surgical candidate at this time and she is not symptomatic. -Concern Diflucan could have caused worsening of LFTs. -Liver enzymes have improved -Diflucan completed -Encouraged improved diet. Dietary consult Thrombocytopenia -resolved Hypertension-continue metoprolol. [place] Asthma-asymptomatic, will add as needed albuterol if necessary Chronic constipation-stop Colace and MiraLAX because of current diarrhea -Patient is having loose and watery stools. Review of her old chart shows that it is likely chronic now. Will stop her oral magnesium and treat with IV magnesium while in the hospital. Stop Colace and MiraLAX. Rhabdomyolysis - resolved, -CK has normalized -Renal function is improving -Continue to monitor. Metabolic encephalopathy -resolved -Mentation now is likely secondary to longstanding dementia -Placement pending Decubitus bilateral lower extremity -Physical therapy is doing daily dressing changes with Unna boots NSTEMI- heparin, plavix, asa started when troponin increase. family is realistic and no transfer will be done -Continue aspirin -Heparin stopped secondary to thrombocytopenia -Likely a type II PR secondary to sepsis -No wall motion abnormalities Pityriasis versicolor- and generalized fungal infection-fluconazole finished Anxiety -ativan 0.5 prn bid added IV Chronic hypomagnesemia -Magnesium 1.5 -Magnesium 4 g IV x1 -Magnesium 400 mg twice daily ppx Lovenox DNR/DNI Hospital stay greater than 96 hours secondary to placement issues, long weekend, slow resolution of sepsis and acute renal insufficiency.
[2021-06-27] MEDS: Oxybutynin 5 MG Tab.ER PO SCH (20:41)
[2021-06-28] MEDS: Magnesium Oxide 400 MG Tab PO SCH ×2 (09:25→21:32)
[2021-06-28] MEDS: Metoprolol Succinate 50 MG Tab.ER PO SCH (09:26)
[2021-06-28] MEDS: Nystatin Topical Powder 15 GM Bottle TOP SCH ×4 (09:26→21:32)
[2021-06-28] MEDS: Potassium Chloride 20 MEQ Tab.ER PO SCH (09:27)
[2021-06-28] MEDS: Acetaminophen 325 MG Tab PO PRN (09:27)
[2021-06-28] MEDS: Aspirin 81 MG Tab.EC PO SCH (09:27)
[2021-06-28] MEDS: Enoxaparin 40 MG/0.4 ML Syringe SUBCUT SCH (09:27)
[2021-06-28] MEDS: traMADol 50 MG Tab PO PRN (09:28)
--- NOTE | 2021-06-28 16:38 | PCM.PN ---
- General Info Date of Service: 06/28/21 Admission Dx/Problem (Free Text): Admission Diagnosis/Problem Admission Diagnosis/Problem Sepsis Subjective Update: Patient complains of urinary frequency. Patient is otherwise fine. Denies fever, chills, nausea, or vomiting. She cannot answer most of my questions. - Review of Systems Systems Review Comment:: Positive for urinary frequency. All other systems were reviewed and negative. - Patient Data Vitals - Most Recent: Last Vital Signs Temp 36.8 C 06/28/21 15:18 Pulse 51 L 06/28/21 15:18 Resp 16 06/28/21 15:18 BP 133/60 06/28/21 15:18 Pulse Ox 94 L 06/28/21 15:18 Weight - Most Recent: 101.741 kg I&O - Last 24 Hours: Intake & Output 06/28/21 06/28/21 06/28/21 06:59 14:59 22:59 Intake Total 400 680 550 Output Total 1750 Balance -1350 680 550 Lab Results Last 24 Hours: Laboratory Results - last 24 hr 06/28/21 06/28/21 Range/Units 05:06 05:06 WBC 4.89 (3.98-10.04) K/mm3 RBC 3.59 L (3.98-5.22) M/mm3 Hgb 11.0 L (11.2-15.7) gm/dl Hct 34.7 (34.1-44.9) % MCV 96.7 H (79.4-94.8) fl MCH 30.6 (25.6-32.2) pg MCHC 31.7 L (32.2-35.5) g/dl RDW Std Deviation 52.4 H (36.4-46.3) fL Plt Count 323 (182-369) K/mm3 MPV 11.0 (9.4-12.3) fl Neut % (Auto) 32.2 L (34.0-71.1) % Lymph % (Auto) 47.0 (19.3-51.7) % Haakon % (Auto) 18.6 H (4.7-12.5) % Eos % (Auto) 1.6 (0.7-5.8) Baso % (Auto) 0.6 (0.1-1.2) % Neut # (Auto) 1.57 (1.56-6.13) K/mm3 Lymph # (Auto) 2.30 (1.18-3.74) K/mm3 Haakon # (Auto) 0.91 H (0.24-0.36) K/mm3 Eos # (Auto) 0.08 (0.04-0.36) K/mm3 Baso # (Auto) 0.03 (0.01-0.08) K/mm3 Sodium 139 (136-145) mEq/L Potassium 3.7 (3.5-5.1) mEq/L Chloride 106 (98-107) mEq/L Carbon Dioxide 27 (21-32) mEq/L Anion Gap 9.7 (5-15) BUN 30 H (7-18) mg/dL Creatinine 0.9 (0.55-1.02) mg/dL Est Cr Clr Drug Dosing 45.20 mL/min Estimated GFR (MDRD) > 60 (>60) mL/min BUN/Creatinine Ratio 33.3 H (14-18) Glucose 93 (70-99) mg/dL Calcium 8.8 (8.5-10.1) mg/dL Phosphorus 3.4 (2.6-4.7) mg/dL Magnesium 1.7 L (1.8-2.4) mg/dL Total Bilirubin 0.6 (0.2-1.0) mg/dL AST 16 (15-37) U/L ALT 16 (14-59) U/L Alkaline Phosphatase 123 H (46-116) U/L Total Protein 5.6 L (6.4-8.2) g/dl Albumin 2.3 L (3.4-5.0) g/dl Globulin 3.3 gm/dL Albumin/Globulin Ratio 0.7 L (1-2) Med Orders - Current: Current Medications Acetaminophen (Acetaminophen 325 Mg Tab) 650 mg PO Q4H PRN PRN Reason: Pain (Mild 1-3)/fever Last Admin: 06/28/21 09:27 Dose: 650 mg Documented by: Acetaminophen (Acetaminophen 650 Mg Supp) 650 mg RECTAL Q4H PRN PRN Reason: Fever Last Admin: 06/12/21 18:39 Dose: 650 mg Documented by: Amlodipine Besylate (Amlodipine 5 Mg Tab) 2.5 mg PO DAILY [facility] Aspirin (Aspirin 81 Mg Tab.Ec) 81 mg PO DAILY [facility] Last Admin: 06/28/21 09:27 Dose: 81 mg Documented by: Docusate Sodium (Docusate Sodium 100 Mg Cap) 100 mg PO Q12H PRN PRN Reason: Constipation Last Admin: 06/19/21 20:37 Dose: 100 mg Documented by: Enoxaparin Sodium (Enoxaparin 40 Mg/0.4 Ml Syringe) 40 mg SUBCUT DAILY [facility] Last Admin: 06/28/21 09:27 Dose: 40 mg Documented by: Lorazepam (Lorazepam 2 Mg/Ml Sdv) 0.5 mg IVPUSH BID PRN PRN Reason: Anxiety Last Admin: 06/21/21 09:01 Dose: 0.5 mg Documented by: Magnesium Oxide (Magnesium Oxide 400 Mg Tab) 400 mg PO BID [facility] Last Admin: 06/28/21 09:25 Dose: 400 mg Documented by: Metoprolol Succinate (Metoprolol Succinate 50 Mg Tab.Er) 50 mg PO DAILY [facility] Last Admin: 06/28/21 09:26 Dose: 50 mg Documented by: Nystatin (Nystatin Topical Powder 15 Gm Bottle) 0 gm TOP QID [facility] Last Admin: 06/28/21 13:30 Dose: 1 applic Documented by: Ondansetron HCl (Ondansetron 4 Mg Tab.Dis) 4 mg PO Q4H PRN PRN Reason: nausea, able to take PO Oxybutynin Chloride (Oxybutynin 5 Mg Tab.Er) 5 mg PO BEDTIME [facility] Last Admin: 06/27/21 20:41 Dose: 5 mg Documented by: Potassium Chloride (Potassium Chloride 20 Meq Tab.Er) 20 meq PO DAILY [facility] Last Admin: 06/28/21 09:27 Dose: 20 meq Documented by: Sodium Chloride (Sodium Chloride 0.9% 10 Ml Syringe) 10 ml FLUSH ASDIRECTED PRN PRN Reason: Keep Vein Open Last Admin: 06/21/21 10:42 Dose: 10 ml Documented by: Temazepam (Temazepam 7.5 Mg Cap) 7.5 mg PO BEDTIME PRN PRN Reason: Sleep Tramadol HCl (Tramadol 50 Mg Tab) 50 mg PO Q6H PRN PRN Reason: Pain Last Admin: 06/28/21 09:28 Dose: 50 mg Documented by: Discontinued Medications Aspirin (Aspirin 325 Mg Tab.Ec) 325 mg PO ONETIME ONE Stop: 06/12/21 22:46 Last Admin: 06/12/21 23:23 Dose: 325 mg Documented by: Clopidogrel Bisulfate (Clopidogrel 75 Mg Tab) 300 mg PO ONETIME ONE Stop: 06/12/21 22:46 Last Admin: 06/12/21 23:23 Dose: 300 mg Documented by: Diphenhydramine HCl (Diphenhydramine 50 Mg/Ml Sdv) 50 mg IVPUSH ONETIME PRN PRN Reason: hypersensitivity reaction Stop: 06/18/21 20:00 Docusate Sodium (Docusate Sodium 100 Mg Cap) 100 mg PO BID [facility] Last Admin: 06/14/21 08:54 Dose: Not Given Documented by: Enoxaparin Sodium (Enoxaparin 40 Mg/0.4 Ml Syringe) 40 mg SUBCUT DAILY [facility] Last Admin: 06/15/21 08:05 Dose: 40 mg Documented by: Epinephrine HCl (Epinephrine 1 Mg/Ml Sdv) 0.3 mg IM ONETIME PRN PRN Reason: hypersensitivity reaction Stop: 06/18/21 20:00 Famotidine (Famotidine 20 Mg/2 Ml Sdv) 20 mg IVPUSH BID [facility] Last Admin: 06/14/21 08:23 Dose: 20 mg Documented by: Famotidine (Famotidine 20 Mg/2 Ml Sdv) 20 mg IVPUSH ONETIME PRN PRN Reason: hypersensitivity reaction Stop: 06/18/21 20:00 Furosemide (Furosemide 20 Mg Tab) 20 mg PO DAILY PRN PRN Reason: Edema Furosemide (Furosemide 40 Mg/4 Ml Vial) 40 mg IVPUSH TID [facility] Last Admin: 06/13/21 08:37 Dose: 40 mg Documented by: Furosemide (Furosemide 20 Mg/2 Ml Vial) 20 mg IVPUSH DAILY [facility] Last Admin: 06/15/21 08:04 Dose: 20 mg Documented by: Heparin Sodium (Porcine) (Heparin Sodium 5,000 Units/Ml Vial) 5,000 units SUBCUT Q8H [facility] Last Admin: 06/12/21 18:38 Dose: 5,000 units Documented by: Heparin Sodium (Porcine) (Heparin Sodium 5,000 Units/Ml Vial) 4,000 units IVPUSH ONETIME ONE Stop: 06/12/21 23:21 Last Admin: 06/13/21 00:15 Dose: 4,000 units Documented by: Sodium Chloride (Normal Saline) 1,000 mls @ 999 mls/hr IV ONETIME ONE; Protocol Stop: 06/12/21 16:28 Last Admin: 06/12/21 15:46 Dose: 999 mls/hr Documented by: Ceftriaxone Sodium 2 gm/ (Sodium Chloride) 100 mls @ 200 mls/hr IV ONETIME ONE Stop: 06/12/21 16:52 Last Admin: 06/12/21 16:28 Dose: 200 mls/hr Documented by: Ceftriaxone Sodium 2 gm/ (Sodium Chloride) 100 mls @ 200 mls/hr IV Q24H [facility] Vancomycin HCl 2 gm/ Sodium (Chloride) 500 mls @ 250 mls/hr IV ONETIME ONE Stop: 06/12/21 22:59 Last Admin: 06/12/21 22:01 Dose: 250 mls/hr Documented by: Vancomycin HCl 1.25 gm/ Sodium (Chloride) 250 mls @ 250 mls/hr IV Q12H [facility] Heparin Sodium/Dextrose (Heparin 25,000 Units In D5w 500 Ml) 25,000 units in 500 mls @ 20 mls/hr IV TITRATE [facility]; Protocol Last Titration: 06/14/21 04:08 Dose: 4.8 mls/hr Documented by: Piperacillin Sod/Tazobactam (Sod 3.375 gm/ Sodium Chloride) 100 mls @ 25 mls/hr IV Q8H [facility] Fluconazole/Sodium Chloride (200 mg/ Premix) 100 mls @ 100 mls/hr IV Q24H [facility] Last Admin: 06/15/21 08:04 Dose: 100 mls/hr Documented by: Piperacillin Sod/Tazobactam (Sod 4.5 gm/ Sodium Chloride) 100 mls @ 200 mls/hr IV ONETIME ONE Stop: 06/13/21 08:29 Last Admin: 06/13/21 08:37 Dose: 200 mls/hr Documented by: Piperacillin Sod/Tazobactam (Sod 4.5 gm/ Sodium Chloride) 100 mls @ 25 mls/hr IV Q8H [facility] Last Admin: 06/15/21 15:19 Dose: 25 mls/hr Documented by: Vancomycin HCl 1 gm/Vancomycin HCl 250 mg/ Sodium Chloride 250 mls @ 250 mls/hr IV Q12H [facility] Last Admin: 06/14/21 20:51 Dose: 250 mls/hr Documented by: Magnesium Sulfate 2 gm/ Premix 50 mls @ 25 mls/hr IV ONETIME ONE Stop: 06/13/21 11:01 Last Admin: 06/13/21 09:52 Dose: 25 mls/hr Documented by: Potassium Chloride 10 meq/ (Premix) 100 mls @ 100 mls/hr IV ONETIME ONE Stop: 06/13/21 10:27 Last Admin: 06/13/21 11:29 Dose: Not Given Documented by: Potassium Chloride 10 meq/ (Premix) 100 mls @ 100 mls/hr IV ONETIME ONE Stop: 06/13/21 11:59 Potassium Chloride 10 meq/ (Premix) 100 mls @ 100 mls/hr IV ONETIME ONE Stop: 06/13/21 13:59 Last Admin: 06/13/21 12:19 Dose: 100 mls/hr Documented by: Sodium Chloride (Normal Saline) 150 [facility] Last Admin: 06/13/21 12:19 Dose: 50 mls/hr Documented by: Magnesium Sulfate 4 gm/ Premix 50 mls @ 12.5 mls/hr IV ONETIME ONE Stop: 06/14/21 13:47 Last Admin: 06/14/21 10:28 Dose: 12.5 mls/hr Documented by: Albumin Human (Flexbumin 25%) 12.5 gm in 50 mls @ 100 mls/hr IV ONETIME ONE Stop: 06/15/21 09:20 Last Admin: 06/15/21 09:40 Dose: 80 mls/hr Documented by: Albumin Human (Flexbumin 25%) 12.5 gm in 50 mls @ 100 mls/hr IV ONETIME ONE Stop: 06/15/21 16:29 Last Admin: 06/15/21 15:12 Dose: 100 mls/hr Documented by: Lactated Ringer's (Ringers, Lactated) 1,000 mls @ 75 mls/hr IV ASDIRECTED [facility] Last Admin: 06/15/21 14:56 Dose: 75 mls/hr Documented by: Lactated Ringer's (Ringers, Lactated) 1,000 [facility]ls [facility] Last Admin: 06/16/21 23:04 Dose: 75 mls/hr Documented by: Magnesium Sulfate 2 gm/ Premix 50 mls @ 25 mls/hr IV ONETIME ONE Stop: 06/16/21 11:04 Last Admin: 06/16/21 09:29 Dose: 25 mls/hr Documented by: Magnesium Sulfate 4 gm/ Premix 50 mls @ 12.5 mls/hr IV ONETIME ONE Stop: 06/17/21 12:34 Last Admin: 06/17/21 09:44 Dose: 12.5 mls/hr Documented by: Magnesium Sulfate 2 gm/ Premix 50 mls @ 25 mls/hr IV ONETIME ONE Stop: 06/18/21 12:40 Last Admin: 06/18/21 10:50 Dose: 25 mls/hr Documented by: CASIRIVIMAB/IMDEVIMAB 10 ml/ (Sodium Chloride) 110 mls @ 220 mls/hr IV ONETIME ONE Stop: 06/18/21 14:59 Last Admin: 06/18/21 14:33 Dose: 220 mls/hr Documented by: Magnesium Sulfate 4 gm/ Premix 50 mls @ 12.5 mls/hr IV ONETIME ONE Stop: 06/20/21 12:10 Last Admin: 06/20/21 09:13 Dose: 12.5 mls/hr Documented by: Magnesium Sulfate 4 gm/ Premix 50 mls @ 12.5 mls/hr IV ONETIME ONE Stop: 06/24/21 13:59 Last Admin: 06/24/21 09:46 Dose: 12.5 mls/hr Documented by: Magnesium Sulfate 4 gm/ Premix 50 mls @ 12.5 mls/hr IV ONETIME ONE Stop: 06/26/21 17:59 Last Admin: 06/26/21 14:50 Dose: 12.5 mls/hr Documented by: Magnesium Sulfate/Dextrose 1 (gm/ Premix) 100 mls @ 100 mls/hr IV ONETIME ONE Stop: 06/28/21 11:59 Last Admin: 06/28/21 12:38 Dose: 100 mls/hr Documented by: Ibuprofen (Ibuprofen 600 Mg Tab) 600 mg PO Q6H PRN PRN Reason: Pain/Fever Last Admin: 06/20/21 18:46 Dose: 600 mg Documented by: Iopamidol (Iopamidol 755 Mg/Ml 100 Ml Bottle) 100 ml IVPUSH ONETIME ONE Stop: 06/21/21 08:29 Last Admin: 06/21/21 09:45 Dose: 100 ml Documented by: Magnesium Oxide (Magnesium Oxide 400 Mg Tab) 400 mg PO BID [facility] Last Admin: 06/14/21 08:23 Dose: 400 mg Documented by: Methylprednisolone Sodium Succinate (Methylprednisolone Sodium Succinate 125 Mg/2 Ml Sdv) 125 mg IVPUSH ONETIME PRN PRN Reason: hypersensitivity reaction Stop: 06/18/21 20:00 Metoprolol Succinate (Metoprolol Succinate 50 Mg Tab.Er) 50 mg PO DAILY [facility] Last Admin: 06/13/21 08:38 Dose: 50 mg Documented by: Multi-Ingred Cream/Lotion/Oil/Oint (Zinc Oxide 20% Oint 28.35 Gm Tube) 1 gm TOP Q1H [facility] Last Admin: 06/13/21 12:04 Dose: Not Given Documented by: Multi-Ingred Cream/Lotion/Oil/Oint (Zinc Oxide 20% Oint 28.35 Gm Tube) 1 gm TOP DAILY [facility] Stop: 06/14/21 09:01 Last Admin: 06/14/21 08:24 Dose: 1 gm Documented by: Neomycin/Polymyxin/Bacitracin (Bacitracin/Neomycin/Polymyxin B Oint 15 Gm Tube) 0 gm TOP BID [facility] Last Admin: 06/16/21 11:50 Dose: Not Given Documented by: Oxycodone HCl (Oxycodone 5 Mg Tab) 5 mg PO Q6H PRN PRN Reason: Pain Mirabegron 25 Mg Tab .Er Patient's Own Med 0 each PO DAILY [facility] Last Admin: 06/26/21 11:30 Dose: Not Given Documented by: Pharmacy Consult (Pharmacy Consult Order) 1 each .XX ASDIRECTED [facility] Polyethylene Glycol (Polyethylene Glycol 3350 Powder 17 Gm Packet) 17 gm PO D AILY [facility] Last Admin: 06/14/21 08:55 Dose: Not Given Documented by: Potassium Chloride (Potassium Chloride 20 Meq Tab.Er) 40 meq PO ONETIME ONE Stop: 06/13/21 09:29 Last Admin: 06/13/21 10:37 Dose: 40 meq Documented by: Potassium Chloride (Potassium Chloride 20 Meq Tab.Er) 20 meq PO ONETIME ONE Stop: 06/14/21 09:36 Last Admin: 06/14/21 10:28 Dose: 20 meq Documented by: Potassium Chloride (Potassium Chloride 20 Meq Tab.Er) 20 meq PO ONETIME ONE Stop: 06/15/21 17:01 Last Admin: 06/15/21 18:30 Dose: 20 meq Documented by: Sodium Chloride (Sodium Chloride 0.9% 10 Ml Syringe) 30 ml FLUSH ASDIRECTED [facility] Stop: 06/18/21 20:00 Trimethoprim/Sulfamethoxazole (Sulfamethoxazole/Trimethoprim 800-160 Mg Tab) 1 tab PO BID [facility] Last Admin: 06/21/21 10:15 Dose: 1 tab Documented by: Vancomycin HCl (Pharmacy To Dose - Vancomycin) 1 dose .XX ASDIRECTED [facility] Vancomycin HCl (Vancomycin 1 Gm Sdv) Confirm Administered Dose 2 gm .ROUTE .STK- MED ONE Stop: 06/12/21 21:43 Last Admin: 06/12/21 21:55 Dose: Not Given Documented by: - Exam Urinary Catheter Total Time: 1Days 23Hours Physical Findings Comments:: General: Alert, Oriented, no acute distress HEENT: Pupils Equal, Mucous Membr. Moist/War Neck: Supple Lungs: Normal Respiratory Effort, Crackles (Bibasilar) Cardiovascular: Regular Rate, Regular Rhythm GI/Abdominal Exam: Normal Bowel Sounds, Soft, Non-Tender, No Distention Extremities: Pedal Edema (Unna boots) Skin: Warm, Dry, Intact Psy/Mental Status: Alert, Normal Affect, Normal Mood - Patient Data Lab Results Last 24 hrs: Laboratory Results - last 24 hr 06/28/21 06/28/21 Range/Units 05:06 05:06 WBC 4.89 (3.98-10.04) K/mm3 RBC 3.59 L (3.98-5.22) M/mm3 Hgb 11.0 L (11.2-15.7) gm/dl Hct 34.7 (34.1-44.9) % MCV 96.7 H (79.4-94.8) fl MCH 30.6 (25.6-32.2) pg MCHC 31.7 L (32.2-35.5) g/dl RDW Std Deviation 52.4 H (36.4-46.3) fL Plt Count 323 (182-369) K/mm3 MPV 11.0 (9.4-12.3) fl Neut % (Auto) 32.2 L (34.0-71.1) % Lymph % (Auto) 47.0 (19.3-51.7) % Haakon % (Auto) 18.6 H (4.7-12.5) % Eos % (Auto) 1.6 (0.7-5.8) Baso % (Auto) 0.6 (0.1-1.2) % Neut # (Auto) 1.57 (1.56-6.13) K/mm3 Lymph # (Auto) 2.30 (1.18-3.74) K/mm3 Haakon # (Auto) 0.91 H (0.24-0.36) K/mm3 Eos # (Auto) 0.08 (0.04-0.36) K/mm3 Baso # (Auto) 0.03 (0.01-0.08) K/mm3 Sodium 139 (136-145) mEq/L Potassium 3.7 (3.5-5.1) mEq/L Chloride 106 (98-107) mEq/L Carbon Dioxide 27 (21-32) mEq/L Anion Gap 9.7 (5-15) BUN 30 H (7-18) mg/dL Creatinine 0.9 (0.55-1.02) mg/dL Est Cr Clr Drug Dosing 45.20 mL/min Estimated GFR (MDRD) > 60 (>60) mL/min BUN/Creatinine Ratio 33.3 H (14-18) Glucose 93 (70-99) mg/dL Calcium 8.8 (8.5-10.1) mg/dL Phosphorus 3.4 (2.6-4.7) mg/dL Magnesium 1.7 L (1.8-2.4) mg/dL Total Bilirubin 0.6 (0.2-1.0) mg/dL AST 16 (15-37) U/L ALT 16 (14-59) U/L Alkaline Phosphatase 123 H (46-116) U/L Total Protein 5.6 L (6.4-8.2) g/dl Albumin 2.3 L (3.4-5.0) g/dl Globulin 3.3 gm/dL Albumin/Globulin Ratio 0.7 L (1-2) Result Diagrams: 06/28/21 05:06 06/28/21 05:06 Sepsis Event Note - Evaluation Sepsis Screening Result: No Definite Risk - Focused Exam Vital Signs: Vital Signs Temp Temp Pulse Resp BP Pulse Ox 06/28/21 15:18 36.8 C 51 L 16 133/60 94 L 06/28/21 09:26 53 L 152/67 H 06/28/21 09:17 36.8 C 53 L 18 152/67 H 93 L 06/28/21 06:11 36.6 C 59 L 14 149/50 H 93 L - Problem List Review Problem List Initiated/Reviewed/Updated: Yes - My Orders Last 24 Hours: My Active Orders 06/28/21 09:53 UA W/MICROSCOPIC [URIN] Routine 06/29/21 05:00 CBC WITH AUTO DIFF [HEME] DAILY COMPREHENSIVE METABOLIC PN,CMP [CHEM] DAILY 06/29/21 09:00 amLODIPine [Norvasc] 2.5 mg PO DAILY 06/30/21 05:00 CBC WITH AUTO DIFF [HEME] DAILY COMPREHENSIVE METABOLIC PN,CMP [CHEM] DAILY - Plan Plan:: Generalized weakness and debility Pt will need more PT/OT and eventually SNF placement No significant change Protein calorie malnutrition -Albumin stable at 2.3 nutritional supplementation Dietary following Dementia Pt was seen by speech therapy and as per her cognitive eval she has at least mild to moderated cognitive decline in her executive functions. She will be discharged to SNF. Urge incontinence PT to evaluate and treat Avoid diuretics if possible Recheck UA Started oxybutynin 5 mg on 06/26 UA Mild loose stools with stool incontinence -improved No current complaints Likely worsened by mag oxide May consider a chelated magnesium as outpatient Encouraged improvement in diet to magnesium rich foods. Covid positive Patient is asymptomatic. Screening done for discharge to long-term care facility. Question if patient may have had symptomatic Covid over 2 weeks ago per her history. Regen-CoV given She has good SPO2 on RM Sepsis without shock-elevated white count - resolved. mrsa positive nasal swab. added fluconazole due to the severalty of a pityriasis versicolor and appearance on genital rash with satellite lesions -Fevers have resolved -White count now normal -Currently on Septra -Finished fluconazole -Urine culture positive for Klebsiella pneumoniae sensitive to Septra UTI acute- resolved -history of incontinence -Blood cultures negative -Urine culture: Klebsiella pneumonia - multi-sensitive ?acute CHF exacerbation-Pulmonary congestion on bilateral cxr, bilateral noted on chest x-ray -Echocardiogram: 1. Left ventricular ejection fraction, by visual estimation, is 60 to 65%. 2. Normal left ventricular systolic function. 3. Mild septal left ventricular hypertrophy. 4. Normal pattern of LV diastolic filling. 5. Mildly dilated left atrium. 6. Mildly dilated right atrium. 7. Mild mitral valve regurgitation. 8. Trace tricuspid valve regurgitation. 9. The right ventricular systolic pressure is probably normal. 10. No regional wall motion abnormalities -Lower extremity edema is most likely secondary to dependent edema -Lasix on hold Elevated troponin-likely secondary to troponin leak or Covid 19 infection -Echocardiogram showed no wall motion abnormalities -Plt now 80,000 -Stopped Lovenox Nausea and vomiting-resolved Elevated LFT-improved: Ultrasound abd- Large 4.5 cm gallstone with increased common bile duct dilatation at 1.1 cm. This biliary duct dilatation is an interval change from prior exam. -Tbil, AST and ALT normalized -Alk phos improving -She is not a surgical candidate at this time and she is not symptomatic. --Diflucan completed -Encouraged improved diet. Dietary consult Thrombocytopenia -resolved Hypertension-continue metoprolol. Doming[place] Asthma-asymptomatic, will add as needed albuterol if necessary Chronic constipation-stop Colace and MiraLAX because of current diarrhea -Patient is having loose and watery stools. Review of her old chart shows that it is likely chronic now. Will stop her oral magnesium and treat with IV magnesium while in the hospital. Stop Colace and MiraLAX. Rhabdomyolysis - resolved, -CK has normalized -creatinine back to NL -Continue to monitor. Metabolic encephalopathy -resolved -Mentation now is likely secondary to longstanding dementia -Placement pending Decubitus bilateral lower extremity -Physical therapy is doing daily dressing changes with Unna boots NSTEMI- heparin, plavix, asa started when troponin increase. family is realistic and no transfer will be done -Continue aspirin -Heparin stopped secondary to thrombocytopenia -Likely a type II SD secondary to sepsis -No wall motion abnormalities Pityriasis versicolor- and generalized fungal infection-fluconazole finished Anxiety -ativan 0.5 prn bid added IV Chronic hypomagnesemia replaced and repeat it ppx Lovenox DNR/DNI Hospital stay greater than 96 hours secondary to placement issues, long weekend, slow resolution of sepsis and acute renal insufficiency. SNF tomorrow? Needs PCP, cardiology, and G surgeon
[2021-06-28] MEDS: Oxybutynin 5 MG Tab.ER PO SCH (21:32)
[2021-06-29] MEDS: traMADol 50 MG Tab PO PRN (05:07)
[2021-06-29] MEDS: Enoxaparin 40 MG/0.4 ML Syringe SUBCUT SCH (08:15)
[2021-06-29] MEDS: Magnesium Oxide 400 MG Tab PO SCH (08:16)
[2021-06-29] MEDS: Metoprolol Succinate 50 MG Tab.ER PO SCH (08:16)
[2021-06-29] MEDS: Aspirin 81 MG Tab.EC PO SCH (08:16)
[2021-06-29] MEDS: Nystatin Topical Powder 15 GM Bottle TOP SCH ×2 (08:16→12:00)
[2021-06-29] MEDS: Potassium Chloride 20 MEQ Tab.ER PO SCH (08:16)
[2021-06-29] MEDS ORDERED: amLODIPine 5 MG Tab PO SCH (09:00)
--- NOTE | 2021-06-29 12:53 | PCM.DCSUM1 ---
Discharge Summary - Hospital Course Free Text/Narrative:: Generalized weakness and debility Pt will need more PT/OT and eventually SNF placement No significant change Protein calorie malnutrition -Albumin stable at 2.3 nutritional supplementation Dietary following Dementia Pt was seen by speech therapy and as per her cognitive eval she has at least mild to moderated cognitive decline in her executive functions. She will be discharged to SNF. Urge incontinence PT to evaluate and treat Avoid diuretics if possible Recheck UA Started oxybutynin 5 mg on 06/26 UA yesterday - negative Mild loose stools with stool incontinence -improved No current complaints Likely worsened by mag oxide May consider a chelated magnesium as outpatient Encouraged improvement in diet to magnesium rich foods. Covid positive Patient is asymptomatic. Screening done for discharge to long-term care facility. Question if patient may have had symptomatic Covid over 2 weeks ago per her history. Regen-CoV given She has good SPO2 on RM Sepsis without shock-elevated white count - resolved. mrsa positive nasal swab. added fluconazole due to the severalty of a pityriasis versicolor and appearance on genital rash with satellite lesions -Fevers have resolved -White count now normal -Currently on Septra -Finished fluconazole -Urine culture positive for Klebsiella pneumoniae sensitive to Septra UTI acute- resolved -history of incontinence -Blood cultures negative -Urine culture: Klebsiella pneumonia - multi-sensitive ?acute CHF exacerbation-Pulmonary congestion on bilateral cxr, bilateral noted on chest x-ray -Echocardiogram: 1. Left ventricular ejection fraction, by visual estimation, is 60 to 65%. 2. Normal left ventricular systolic function. 3. Mild septal left ventricular hypertrophy. 4. Normal pattern of LV diastolic filling. 5. Mildly dilated left atrium. 6. Mildly dilated right atrium. 7. Mild mitral valve regurgitation. 8. Trace tricuspid valve regurgitation. 9. The right ventricular systolic pressure is probably normal. 10. No regional wall motion abnormalities -Lower extremity edema is most likely secondary to dependent edema (improved) -Lasix on hold Elevated troponin-likely secondary to troponin leak or Covid 19 infection -Echocardiogram showed no wall motion abnormalities -Plt now 80,000 -Stopped Lovenox Nausea and vomiting-resolved Elevated LFT-improved: Ultrasound abd- Large 4.5 cm gallstone with increased common bile duct dilatation at 1.1 cm. This biliary duct dilatation is an interval change from prior exam. -Tbil, AST and ALT normalized -Alk phos improving -She is not a surgical candidate at this time and she is not symptomatic. --Diflucan completed -Encouraged improved diet. Dietary consult Thrombocytopenia -resolved Hypertension-continue metoprolol. Doming[place] Asthma-asymptomatic, will add as needed albuterol if necessary Chronic constipation-stop Colace and MiraLAX because of current diarrhea -Patient is having loose and watery stools. Review of her old chart shows that it is likely chronic now. Will stop her oral magnesium and treat with IV magnesium while in the hospital. Stop Colace and MiraLAX. Rhabdomyolysis - resolved, -CK has normalized -creatinine back to NL -Continue to monitor. Metabolic encephalopathy -resolved -Mentation now is likely secondary to longstanding dementia -Placement pending Decubitus bilateral lower extremity -Physical therapy is doing daily dressing changes with Unna boots NSTEMI- heparin, plavix, asa started when troponin increase. family is realistic and no transfer will be done -Continue aspirin -Heparin stopped secondary to thrombocytopenia -Likely a type II [place] secondary to sepsis -No wall motion abnormalities Pityriasis versicolor- and generalized fungal infection-fluconazole finished Anxiety -ativan 0.5 prn bid added IV Chronic hypomagnesemia replaced and repeat it Today patient does not have any complaint. Vital signs are stable and acceptable. She will be discharged to SNF today to follow with the PCP in 3 days, cardiology within 1 week, urology and surgeon in 1 week. change dressing daily. Repeat a CBC, CMP, and a electrolytes in 3 days. Continue PT OT. Do not drive until approval from MD. Call PCP for medical issues. Diagnosis: Stroke: No - Discharge Data Discharge Date: 06/29/21 Discharge Disposition: DC/Tfer to SNF 03 Condition: Fair - Referral to Home Health Primary Care Physician: Marilyn Bai NP - Patient Summary/Data Consults: Consultations 06/12/21 16:38 OT Evaluation and Treatment [CONS] Routine PT Evaluation and Treatment [CONS] Routine 06/13/21 07:57 PT Evaluation and Treatment [CONS] Routine 06/16/21 09:03 Consult to Speech Language Pathology [ACADEMIC ADMINISTRATOR Evaluation and Treatment] [CONS] Routine 06/16/21 11:13 Consult to Speech Language Pathology [ACADEMIC ADMINISTRATOR Evaluation and Treatment] [CONS] Routine Recommended Follow-up Testing/Procedures: follow with the PCP in 3 days, cardiology within 1 week, urology and surgeon in 1 week. change dressing daily. Repeat a CBC, CMP, and a electrolytes in 3 days. Continue PT OT. Do not drive until approval from MD. Call PCP for medical issues. - Patient Instructions Diet: Heart Healthy Diet Activity: As Tolerated - Discharge Plan *PRESCRIPTION DRUG MONITORING PROGRAM REVIEWED*: Yes *COPY OF PRESCRIPTION DRUG MONITORING REPORT IN PATIENT KENROY: Yes Prescriptions/Med Rec: Docusate Sodium [Colace] 100 mg PO BID PRN #60 cap PRN Reason: Constipation Aspirin [Halfprin] 81 mg PO DAILY #30 tab.ec amLODIPine [Norvasc] 2.5 mg PO DAILY #30 tablet Oxybutynin [Oxybutynin ER] 5 mg PO BEDTIME #30 tab.er Home Medications: Home Meds Metoprolol Succinate [Toprol XL 100mg] 50 mg PO DAILY 12/07/17 [History] Levalbuterol Tartrate [Xopenex Hfa] 2 puff INH Q4HR PRN 07/01/19 [History] Methyl B12 Plus 1 tab PO DAILY 03/14/20 [History] Nystatin [Nystop] 1 gm TOP TID #2 bottle 03/18/20 [Rx] Ferrous Sulfate 325 mg PO DAILY 06/12/21 [History] Fluticasone Propionate [Flovent] 50 mcg JOANNE BID 06/12/21 [History] Mirabegron [Myrbetriq] 25 mg PO DAILY 06/12/21 [History] Venlafaxine HCl [Venlafaxine ER] 150 mg PO DAILY 06/13/21 [History] Aspirin [Halfprin] 81 mg PO DAILY #30 tab.ec 06/29/21 [Rx] Docusate Sodium [Colace] 100 mg PO BID PRN #60 cap 06/29/21 [Rx] Oxybutynin [Oxybutynin ER] 5 mg PO BEDTIME #30 tab.er 06/29/21 [Rx] amLODIPine [Norvasc] 2.5 mg PO DAILY #30 tablet 06/29/21 [Rx] Patient Handouts: Sepsis, Self Care, Adult Forms: ED Department Discharge Referrals: Ac Barnes MD [Ordering Only Provider] - 07/06/21 11:30 am (This is to establish care. Please arrive at 11:15) see, pcp in 3 days [Other] see, cardiology within one week [Other] see, urology in one week [Other] see, general surgeon in one week [Other] - Discharge Summary/Plan Comment DC Time >30 min.: Yes Total # of Minutes for Discharge Time: 90mins - General Info Date of Service: 06/29/21 Admission Dx/Problem (Free Text: Admission Diagnosis/Problem Admission Diagnosis/Problem Sepsis Subjective Update: Patient complains of urinary frequency. Patient is otherwise fine. Denies fever, chills, nausea, or vomiting. She cannot answer most of my questions. - Review of Systems General: Reports: No Symptoms HEENT: Reports: No Symptoms Pulmonary: Reports: No Symptoms Cardiovascular: Reports: No Symptoms Gastrointestinal: Reports: No Symptoms Genitourinary: Reports: No Symptoms Musculoskeletal: Reports: No Symptoms Skin: Reports: No Symptoms Neurological: Reports: No Symptoms Psychiatric: Reports: No Symptoms - Patient Data Vitals - Most Recent: Last Vital Signs Temp 36.8 C 06/29/21 08:12 Pulse 60 06/29/21 08:16 Resp 16 06/29/21 08:12 BP 147/83 H 06/29/21 08:17 Pulse Ox 94 L 06/29/21 08:14 Weight - Most Recent: 101.06 kg I&O - Last 24 hours: Intake & Output 06/28/21 06/29/21 06/29/21 22:59 06:59 14:59 Intake Total 1170 400 Output Total 800 Balance 1170 -400 Lab Results - Last 24 hrs: Laboratory Results - last 24 hr 06/28/21 06/28/21 06/29/21 Range/Units 16:57 19:00 06:13 WBC 5.22 (3.98-10.04) K/mm3 RBC 3.65 L (3.98-5.22) M/mm3 Hgb 11.1 L (11.2-15.7) gm/dl Hct 35.5 (34.1-44.9) % MCV 97.3 H (79.4-94.8) fl MCH 30.4 (25.6-32.2) pg MCHC 31.3 L (32.2-35.5) g/dl RDW Std Deviation 52.4 H (36.4-46.3) fL Plt Count 315 (182-369) K/mm3 MPV 10.8 (9.4-12.3) fl Neut % (Auto) 33.0 L (34.0-71.1) % Lymph % (Auto) 47.5 (19.3-51.7) % [place] % (Auto) 17.0 H (4.7-12.5) % Eos % (Auto) 1.7 (0.7-5.8) Baso % (Auto) 0.6 (0.1-1.2) % Neut # (Auto) 1.72 (1.56-6.13) K/mm3 Lymph # (Auto) 2.48 (1.18-3.74) K/mm3 [place] # (Auto) 0.89 H (0.24-0.36) K/mm3 Eos # (Auto) 0.09 (0.04-0.36) K/mm3 Baso # (Auto) 0.03 (0.01-0.08) K/mm3 Sodium (136-145) mEq/L Potassium (3.5-5.1) mEq/L Chloride (98-107) mEq/L Carbon Dioxide (21-32) mEq/L Anion Gap (5-15) BUN (7-18) mg/dL Creatinine (0.55-1.02) mg/dL Est Cr Clr Drug Dosing mL/min Estimated GFR (MDRD) (>60) mL/min BUN/Creatinine Ratio (14-18) Glucose (70-99) mg/dL Calcium (8.5-10.1) mg/dL Magnesium 1.9 (1.8-2.4) mg/dL Total Bilirubin (0.2-1.0) mg/dL AST (15-37) U/L ALT (14-59) U/L Alkaline Phosphatase (46-116) U/L Total Protein (6.4-8.2) g/dl Albumin (3.4-5.0) g/dl Globulin gm/dL Albumin/Globulin Ratio (1-2) Urine Color Yellow (Yellow) Urine Appearance Slt cloudy H (Clear) Urine pH 7.0 (5.0-8.0) Ur Specific [place] 1.020 (1.005-1.030) Urine Protein Negative (Negative) Urine Glucose (UA) Negative (Negative) Urine Ketones Negative (Negative) Urine Occult Blood 1+ H (Negative) Urine Nitrite Negative (Negative) Urine Bilirubin Negative (Negative) Urine Urobilinogen 0.2 (0.2-1.0) Ur Leukocyte Esterase Negative (Negative) Urine RBC 0-5 (0-5) /hpf Urine WBC 0-5 (0-5) /hpf Ur Squamous Epith Cells 0-5 (0-5) /hpf Urine Bacteria Moderate H (FEW) /hpf Urine Mucus Not seen (FEW) /hpf 06/29/21 Range/Units 06:13 WBC (3.98-10.04) K/mm3 RBC (3.98-5.22) M/mm3 Hgb (11.2-15.7) gm/dl Hct (34.1-44.9) % MCV (79.4-94.8) fl MCH (25.6-32.2) pg MCHC (32.2-35.5) g/dl RDW Std Deviation (36.4-46.3) fL Plt Count (182-369) K/mm3 MPV (9.4-12.3) fl Neut % (Auto) (34.0-71.1) % Lymph % (Auto) (19.3-51.7) % [place] % (Auto) (4.7-12.5) % Eos % (Auto) (0.7-5.8) Baso % (Auto) (0.1-1.2) % Neut # (Auto) (1.56-6.13) K/mm3 Lymph # (Auto) (1.18-3.74) K/mm3 [place] # (Auto) (0.24-0.36) K/mm3 Eos # (Auto) (0.04-0.36) K/mm3 Baso # (Auto) (0.01-0.08) K/mm3 Sodium 138 (136-145) mEq/L Potassium 3.8 (3.5-5.1) mEq/L Chloride 105 (98-107) mEq/L Carbon Dioxide 26 (21-32) mEq/L Anion Gap 10.8 (5-15) BUN 30 H (7-18) mg/dL Creatinine 1.0 (0.55-1.02) mg/dL Est Cr Clr Drug Dosing 40.68 mL/min Estimated GFR (MDRD) 54 (>60) mL/min BUN/Creatinine Ratio 30.0 H (14-18) Glucose 94 (70-99) mg/dL Calcium 8.8 (8.5-10.1) mg/dL Magnesium 1.8 (1.8-2.4) mg/dL Total Bilirubin 0.5 (0.2-1.0) mg/dL AST 20 (15-37) U/L ALT 18 (14-59) U/L Alkaline Phosphatase 128 H (46-116) U/L Total Protein 5.7 L (6.4-8.2) g/dl Albumin 2.4 L (3.4-5.0) g/dl Globulin 3.3 gm/dL Albumin/Globulin Ratio 0.7 L (1-2) Urine Color (Yellow) Urine Appearance (Clear) Urine pH (5.0-8.0) Ur Specific [place] (1.005-1.030) Urine Protein (Negative) Urine Glucose (UA) (Negative) Urine Ketones (Negative) Urine Occult Blood (Negative) Urine Nitrite (Negative) Urine Bilirubin (Negative) Urine Urobilinogen (0.2-1.0) Ur Leukocyte Esterase (Negative) Urine RBC (0-5) /hpf Urine WBC (0-5) /hpf Ur Squamous Epith Cells (0-5) /hpf Urine Bacteria (FEW) /hpf Urine Mucus (FEW) /hpf Med Orders - Current: Current Medications Acetaminophen (Acetaminophen 325 Mg Tab) 650 mg PO Q4H PRN PRN Reason: Pain (Mild 1-3)/fever Last Admin: 06/28/21 09:27 Dose: 650 mg Documented by: Acetaminophen (Acetaminophen 650 Mg Supp) 650 mg RECTAL Q4H PRN PRN Reason: Fever Last Admin: 06/12/21 18:39 Dose: 650 mg Documented by: Amlodipine Besylate (Amlodipine 2.5 Mg Tab) 2.5 mg PO DAILY [facility] Aspirin (Aspirin 81 Mg Tab.Ec) 81 mg PO DAILY [facility] Last Admin: 06/29/21 08:16 Dose: 81 mg Documented by: Docusate Sodium (Docusate Sodium 100 Mg Cap) 100 mg PO Q12H PRN PRN Reason: Constipation Last Admin: 06/19/21 20:37 Dose: 100 mg Documented by: Enoxaparin Sodium (Enoxaparin 40 Mg/0.4 Ml Syringe) 40 mg SUBCUT DAILY [facility] Last Admin: 06/29/21 08:15 Dose: 40 mg Documented by: Lorazepam (Lorazepam 2 Mg/Ml Sdv) 0.5 mg IVPUSH BID PRN PRN Reason: Anxiety Last Admin: 06/21/21 09:01 Dose: 0.5 mg Documented by: Magnesium Oxide (Magnesium Oxide 400 Mg Tab) 400 mg PO BID [facility] Last Admin: 06/29/21 08:16 Dose: 400 mg Documented by: Metoprolol Succinate (Metoprolol Succinate 50 Mg Tab.Er) 50 mg PO DAILY [facility] Last Admin: 06/29/21 08:16 Dose: 50 mg Documented by: Nystatin (Nystatin Topical Powder 15 Gm Bottle) 0 gm TOP QID [facility] Last Admin: 06/29/21 12:00 Dose: Not Given Documented by: Ondansetron HCl (Ondansetron 4 Mg Tab.Dis) 4 mg PO Q4H PRN PRN Reason: nausea, able to take PO Oxybutynin Chloride (Oxybutynin 5 Mg Tab.Er) 5 mg PO BEDTIME [facility] Last Admin: 06/28/21 21:32 Dose: 5 mg Documented by: Potassium Chloride (Potassium Chloride 20 Meq Tab.Er) 20 meq PO DAILY [facility] Last Admin: 06/29/21 08:16 Dose: 20 meq Documented by: Sodium Chloride (Sodium Chloride 0.9% 10 Ml Syringe) 10 ml FLUSH ASDIRECTED PRN PRN Reason: Keep Vein Open Last Admin: 06/21/21 10:42 Dose: 10 ml Documented by: Temazepam (Temazepam 7.5 Mg Cap) 7.5 mg PO BEDTIME PRN PRN Reason: Sleep Tramadol HCl (Tramadol 50 Mg Tab) 50 mg PO Q6H PRN PRN Reason: Pain Last Admin: 06/29/21 05:07 Dose: 50 mg Documented by: Discontinued Medications Amlodipine Besylate (Amlodipine 5 Mg Tab) 2.5 mg PO DAILY [facility] Last Admin: 06/29/21 08:17 Dose: 2.5 mg Documented by: Aspirin (Aspirin 325 Mg Tab.Ec) 325 mg PO ONETIME ONE Stop: 06/12/21 22:46 Last Admin: 06/12/21 23:23 Dose: 325 mg Documented by: Clopidogrel Bisulfate (Clopidogrel 75 Mg Tab) 300 mg PO ONETIME ONE Stop: 06/12/21 22:46 Last Admin: 06/12/21 23:23 Dose: 300 mg Documented by: Diphenhydramine HCl (Diphenhydramine 50 Mg/Ml Sdv) 50 mg IVPUSH ONETIME PRN PRN Reason: hypersensitivity reaction Stop: 06/18/21 20:00 Docusate Sodium (Docusate Sodium 100 Mg Cap) 100 mg PO BID [facility] Last Admin: 06/14/21 08:54 Dose: Not Given Documented by: Enoxaparin Sodium (Enoxaparin 40 Mg/0.4 Ml Syringe) 40 mg SUBCUT DAILY [facility] Last Admin: 06/15/21 08:05 Dose: 40 mg Documented by: Epinephrine HCl (Epinephrine 1 Mg/Ml Sdv) 0.3 mg IM ONETIME PRN PRN Reason: hypersensitivity reaction Stop: 06/18/21 20:00 Famotidine (Famotidine 20 Mg/2 Ml Sdv) 20 mg IVPUSH BID [facility] Last Admin: 06/14/21 08:23 Dose: 20 mg Documented by: Famotidine (Famotidine 20 Mg/2 Ml Sdv) 20 mg IVPUSH ONETIME PRN PRN Reason: hypersensitivity reaction Stop: 06/18/21 20:00 Furosemide (Furosemide 20 Mg Tab) 20 mg PO DAILY PRN PRN Reason: Edema Furosemide (Furosemide 40 Mg/4 Ml Vial) 40 mg IVPUSH TID [facility] Last Admin: 06/13/21 08:37 Dose: 40 mg Documented by: Furosemide (Furosemide 20 Mg/2 Ml Vial) 20 mg IVPUSH DAILY [facility] Last Admin: 06/15/21 08:04 Dose: 20 mg Documented by: Heparin Sodium (Porcine) (Heparin Sodium 5,000 Units/Ml Vial) 5,000 units SUBCUT Q8H [facility] Last Admin: 06/12/21 18:38 Dose: 5,000 units Documented by: Heparin Sodium (Porcine) (Heparin Sodium 5,000 Units/Ml Vial) 4,000 units IVPUSH ONETIME ONE Stop: 06/12/21 23:21 Last Admin: 06/13/21 00:15 Dose: 4,000 units Documented by: Sodium Chloride (Normal Saline) 1,000 mls @ 999 mls/hr IV ONETIME ONE; Protocol Stop: 06/12/21 16:28 Last Admin: 06/12/21 15:46 Dose: 999 mls/hr Documented by: Ceftriaxone Sodium 2 gm/ (Sodium Chloride) 100 mls @ 200 mls/hr IV ONETIME ONE Stop: 06/12/21 16:52 Last Admin: 06/12/21 16:28 Dose: 200 mls/hr Documented by: Ceftriaxone Sodium 2 gm/ (Sodium Chloride) 100 mls @ 200 mls/hr IV Q24H [facility] Vancomycin HCl 2 gm/ Sodium (Chloride) 500 mls @ 250 mls/hr IV ONETIME ONE Stop: 06/12/21 22:59 Last Admin: 06/12/21 22:01 Dose: 250 mls/hr Documented by: Vancomycin HCl 1.25 gm/ Sodium (Chloride) 250 mls @ 250 mls/hr IV Q12H [facility] Heparin Sodium/Dextrose (Heparin 25,000 Units In D5w 500 Ml) 25,000 units in 500 mls @ 20 mls/hr IV TITRATE [facility]; Protocol Last Titration: 06/14/21 04:08 Dose: 4.8 mls/hr Documented by: Piperacillin Sod/Tazobactam (Sod 3.375 gm/ Sodium Chloride) 100 mls @ 25 mls/hr IV Q8H [facility] Fluconazole/Sodium Chloride (200 mg/ Premix) 100 mls @ 100 mls/hr IV Q24H [facility] Last Admin: 06/15/21 08:04 Dose: 100 mls/hr Documented by: Piperacillin Sod/Tazobactam (Sod 4.5 gm/ Sodium Chloride) 100 mls @ 200 mls/hr IV ONETIME ONE Stop: 06/13/21 08:29 Last Admin: 06/13/21 08:37 Dose: 200 mls/hr Documented by: Piperacillin Sod/Tazobactam (Sod 4.5 gm/ Sodium Chloride) 100 mls @ 25 mls/hr IV Q8H [facility] Last Admin: 06/15/21 15:19 Dose: 25 mls/hr Documented by: Vancomycin HCl 1 gm/Vancomycin HCl 250 mg/ Sodium Chloride 250 mls @ 250 mls/hr IV Q12H [facility] Last Admin: 06/14/21 20:51 Dose: 250 mls/hr Documented by: Magnesium Sulfate 2 gm/ Premix 50 mls @ 25 mls/hr IV ONETIME ONE Stop: 06/13/21 11:01 Last Admin: 06/13/21 09:52 Dose: 25 mls/hr Documented by: Potassium Chloride 10 meq/ (Premix) 100 mls @ 100 mls/hr IV ONETIME ONE Stop: 06/13/21 10:27 Last Admin: 06/13/21 11:29 Dose: Not Given Documented by: Potassium Chloride 10 meq/ (Premix) 100 mls @ 100 mls/hr IV ONETIME ONE Stop: 06/13/21 11:59 Potassium Chloride 10 meq/ (Premix) 100 mls @ 100 mls/hr IV ONETIME ONE Stop: 06/13/21 13:59 Last Admin: 06/13/21 12:19 Dose: 100 mls/hr Documented by: Sodium Chloride (Normal Saline) 150 mls [facility] Last Admin: 06/13/21 12:19 Dose: 50 mls/hr Documented by: Magnesium Sulfate 4 gm/ Premix 50 mls @ 12.5 mls/hr IV ONETIME ONE Stop: 06/14/21 13:47 Last Admin: 06/14/21 10:28 Dose: 12.5 mls/hr Documented by: Albumin Human (Flexbumin 25%) 12.5 gm in 50 mls @ 100 mls/hr IV ONETIME ONE Stop: 06/15/21 09:20 Last Admin: 06/15/21 09:40 Dose: 80 mls/hr Documented by: Albumin Human (Flexbumin 25%) 12.5 gm in 50 mls @ 100 mls/hr IV ONETIME ONE Stop: 06/15/21 16:29 Last Admin: 06/15/21 15:12 Dose: 100 mls/hr Documented by: Lactated Ringer's (Ringers, Lactated) 1,000 mls @ 75 mls[facility] Last Admin: 06/15/21 14:56 Dose: 75 mls/hr Documented by: Lactated Ringer's (Ringers, Lactated) 1,000 mls @ 75 mls[facility] Last Admin: 06/16/21 23:04 Dose: 75 mls/hr Documented by: Magnesium Sulfate 2 gm/ Premix 50 mls @ 25 mls/hr IV ONETIME ONE Stop: 06/16/21 11:04 Last Admin: 06/16/21 09:29 Dose: 25 mls/hr Documented by: Magnesium Sulfate 4 gm/ Premix 50 mls @ 12.5 mls/hr IV ONETIME ONE Stop: 06/17/21 12:34 Last Admin: 06/17/21 09:44 Dose: 12.5 mls/hr Documented by: Magnesium Sulfate 2 gm/ Premix 50 mls @ 25 mls/hr IV ONETIME ONE Stop: 06/18/21 12:40 Last Admin: 06/18/21 10:50 Dose: 25 mls/hr Documented by: CASIRIVIMAB/IMDEVIMAB 10 ml/ (Sodium Chloride) 110 mls @ 220 mls/hr IV ONETIME ONE Stop: 06/18/21 14:59 Last Admin: 06/18/21 14:33 Dose: 220 mls/hr Documented by: Magnesium Sulfate 4 gm/ Premix 50 mls @ 12.5 mls/hr IV ONETIME ONE Stop: 06/20/21 12:10 Last Admin: 06/20/21 09:13 Dose: 12.5 mls/hr Documented by: Magnesium Sulfate 4 gm/ Premix 50 mls @ 12.5 mls/hr IV ONETIME ONE Stop: 06/24/21 13:59 Last Admin: 06/24/21 09:46 Dose: 12.5 mls/hr Documented by: Magnesium Sulfate 4 gm/ Premix 50 mls @ 12.5 mls/hr IV ONETIME ONE Stop: 06/26/21 17:59 Last Admin: 06/26/21 14:50 Dose: 12.5 mls/hr Documented by: Magnesium Sulfate/Dextrose 1 (gm/ Premix) 100 mls @ 100 mls/hr IV ONETIME ONE Stop: 06/28/21 11:59 Last Admin: 06/28/21 12:38 Dose: 100 mls/hr Documented by: Magnesium Sulfate/Dextrose 1 (gm/ Premix) 100 mls @ 100 mls/hr IV Q1H [facility] Stop: 06/28/21 17:44 Last Admin: 06/28/21 17:53 Dose: 100 mls/hr Documented by: Ibuprofen (Ibuprofen 600 Mg Tab) 600 mg PO Q6H PRN PRN Reason: Pain/Fever Last Admin: 06/20/21 18:46 Dose: 600 mg Documented by: Iopamidol (Iopamidol 755 Mg/Ml 100 Ml Bottle) 100 ml IVPUSH ONETIME ONE Stop: 06/21/21 08:29 Last Admin: 06/21/21 09:45 Dose: 100 ml Documented by: Magnesium Oxide (Magnesium Oxide 400 Mg Tab) 400 mg PO BID [facility] Last Admin: 06/14/21 08:23 Dose: 400 mg Documented by: Methylprednisolone Sodium Succinate (Methylprednisolone Sodium Succinate 125 Mg/2 Ml Sdv) 125 mg IVPUSH ONETIME PRN PRN Reason: hypersensitivity reaction Stop: 06/18/21 20:00 Metoprolol Succinate (Metoprolol Succinate 50 Mg Tab.Er) 50 mg PO DAILY [facility] Last Admin: 06/13/21 08:38 Dose: 50 mg Documented by: Multi-Ingred Cream/Lotion/Oil/Oint (Zinc Oxide 20% Oint 28.35 Gm Tube) 1 gm TOP Q1H [facility] Last Admin: 06/13/21 12:04 Dose: Not Given Documented by: Multi-Ingred Cream/Lotion/Oil/Oint (Zinc Oxide 20% Oint 28.35 Gm Tube) 1 gm TOP DAILY [facility] Stop: 06/14/21 09:01 Last Admin: 06/14/21 08:24 Dose: 1 gm Documented by: Neomycin/Polymyxin/Bacitracin (Bacitracin/Neomycin/Polymyxin B Oint 15 Gm Tube) 0 gm TOP BID [facility] Last Admin: 06/16/21 11:50 Dose: Not Given Documented by: Oxycodone HCl (Oxycodone 5 Mg Tab) 5 mg PO Q6H PRN PRN Reason: Pain Mirabegron 25 Mg Tab .Er Patient's Own Med 0 each PO DAILY [facility] Last Admin: 06/26/21 11:30 Dose: Not Given Documented by: Pharmacy Consult (Pharmacy Consult Order) 1 each .XX ASDIRECTED [facility] Polyethylene Glycol (Polyethylene Glycol 3350 Powder 17 Gm Packet) 17 gm PO DAILY [facility] Last Admin: 06/14/21 08:55 Dose: Not Given Documented by: Potassium Chloride (Potassium Chloride 20 Meq Tab.Er) 40 meq PO ONETIME ONE Stop: 06/13/21 09:29 Last Admin: 06/13/21 10:37 Dose: 40 meq Documented by: Potassium Chloride (Potassium Chloride 20 Meq Tab.Er) 20 meq PO ONETIME ONE Stop: 06/14/21 09:36 Last Admin: 06/14/21 10:28 Dose: 20 meq Documented by: Potassium Chloride (Potassium Chloride 20 Meq Tab.Er) 20 meq PO ONETIME ONE Stop: 06/15/21 17:01 Last Admin: 06/15/21 18:30 Dose: 20 meq Documented by: Sodium Chloride (Sodium Chloride 0.9% 10 Ml Syringe) 30 ml FLUSH ASDIRECTED [facility] Stop: 06/18/21 20:00 Trimethoprim/Sulfamethoxazole (Sulfamethoxazole/Trimethoprim 800-160 Mg Tab) 1 tab PO BID [facility] Last Admin: 06/21/21 10:15 Dose: 1 tab Documented by: Vancomycin HCl (Pharmacy To Dose - Vancomycin) 1 dose .XX ASDIRECTED [facility] Vancomycin HCl (Vancomycin 1 Gm Sdv) Confirm Administered Dose 2 gm .ROUTE .STK- MED ONE Stop: 06/12/21 21:43 Last Admin: 06/12/21 21:55 Dose: Not Given Documented by: - Exam Physical Findings Comments:: General: Alert, Oriented, no acute distress HEENT: Pupils Equal, Mucous Membr. Moist/[place] Neck: Supple Lungs: Normal Respiratory Effort, Crackles (Bibasilar) Cardiovascular: Regular Rate, Regular Rhythm GI/Abdominal Exam: Normal Bowel Sounds, Soft, Non-Tender, No Distention Extremities: Pedal Edema ([place] boots) Skin: Warm, Dry, Intact Psy/Mental Status: Alert, Normal Affect, Normal Mood *Q Meaningful Use (DIS) - VTE *Q VTE Mechanical Contraindications *Q: Bilat Lower Injury/Burn VTE Pharmacological Contraindications *Q: Thrombocytopenia
[2021-06-30] MEDS ORDERED: amLODIPine 2.5 MG Tab PO SCH (09:00)
== END 2021-06-29 13:43 | DRG 871 ==
LOC: JD.ED 15:00 → JD.MS 16:33
PROVIDERS: ADMIT Internal Medicine; ATTEND Internal Medicine
PROC: XW033G6 Introduction of REGN-COV2 Monoclonal Antibody into Peripheral Vein, Percutaneous Approach, New Technology Group 6 (ICD-10-PCS; principal; 2021-06-14)
DX: A41.9 Sepsis, unspecified organism (principal); N12 Tubulo-interstitial nephritis, not specified as acute or chronic; U07.1 COVID-19; I10 Essential (primary) hypertension; G93.41 Metabolic encephalopathy; I21.A1 Myocardial infarction type 2; R32 Unspecified urinary incontinence; E46 Unspecified protein-calorie malnutrition; N39.0 Urinary tract infection, site not specified; M62.82 Rhabdomyolysis; Z20.822 Contact with and (suspected) exposure to COVID-19; N17.9 Acute kidney failure, unspecified; L03.115 Cellulitis of right lower limb; L03.116 Cellulitis of left lower limb; F03.90 Unspecified dementia, unspecified severity, without behavioral disturbance, psychotic disturbance, mood disturbance, and anxiety; N39.41 Urge incontinence; Z66 Do not resuscitate; D69.6 Thrombocytopenia, unspecified; I11.0 Hypertensive heart disease with heart failure; J45.909 Unspecified asthma, uncomplicated; K59.09 Other constipation; B36.0 Pityriasis versicolor; F41.9 Anxiety disorder, unspecified; E83.42 Hypomagnesemia; H54.7 Unspecified visual loss; M19.90 Unspecified osteoarthritis, unspecified site; E66.9 Obesity, unspecified; R15.9 Full incontinence of feces; E87.6 Hypokalemia; L89.629 Pressure ulcer of left heel, unspecified stage; L89.619 Pressure ulcer of right heel, unspecified stage; R74.8 Abnormal levels of other serum enzymes; Z79.899 Other long term (current) drug therapy; Z90.710 Acquired absence of both cervix and uterus; Z98.890 Other specified postprocedural states
CPT/HCPCS: 36415; 51702; 71046; 80053; 81001; 82550; 83605; 83880; 84484; 85007; 85027; 85610; 86140; 87040 ×2; 87086; 87088; 87186; 96365; 99285; J0696; J7030; U0002; 29580-GP; 29581-GP; 36410; 71275; 71275-26; 73130-26-RT; 73130-RT; 76705; 76705-26; 80048; 80202; 83735; 84100; 84132; 85025; 85379; 85730; 87493; 87641; 92523-GN; 92610-GN; 93005; 93010; 93306; 94760; 97110-GP; 97162-GP; 97530-GP; 97597-GP; 99100; A9270-GY; J1450; J1644; J1650; J1940; J2060; J2543; J3370; J3475; J3480; J3490; J7040; J7050; J7120; M0243; P9047; Q0243; Q9967

== ENCOUNTER 2021-10-01 16:35 | Emergency (ER) | payer MEDICARE, MEDICAID ==
[2021-10-01] MEDS ORDERED: Sodium Chloride 0.9% 10 ML Syringe FLUSH PRN (17:25)
--- NOTE | 2021-10-01 17:44 | EDM.PDOC ---
ED HPI GENERAL MEDICAL PROBLEM - General Chief Complaint: General Stated Complaint: EVA AMB Time Seen by Provider: 10/01/21 16:42 Source of Information: Reports: Patient, EMS History Limitations: Reports: No Limitations - History of Present Illness INITIAL COMMENTS - FREE TEXT/NARRATIVE: 76-year-old female presents the emergency department today via [facility]. Patient does have a history of chronic low back pain with a bulging disc. She states that she was discharged from [facility] 2 weeks ago. She is there for a short rehab stay and care of swelling noted to her lower legs. She currently resides at [facility]. She states that over the past couple of days she was doing more around the home and cleaning out closets. She suspects that at that time she irritated her back and caused some inflammation. She elected to call the ambulance today as she states she has been in bed since last evening and was not able to get out. Does have history of chronic edema noted to bilateral lower extremities. She does have erythema noted as well as edema to her bilateral lower extremities. Area is not warm to touch. She does have some yellow weeping noted from the right lower extremity in the area of edema. She denies any recent fever, chills, nausea, vomiting or diarrhea. Patient was incontinent in her bed of urine. States that at the time of my exam she is currently not having any discomfort noted to her back while laying in the bed. Her primary care provider is Dr. Barnes. Lower Back Pain Score (Numeric/FACES): 10 - Related Data Allergies Allergy/AdvReac Type Severity Reaction Status Date / Time losartan Allergy Severe Other Verified 06/12/21 20:03 fexofenadine Allergy Insomnia Verified 06/12/21 20:03 Home Meds: Home Meds Metoprolol Succinate [Toprol XL 100mg] 50 mg PO DAILY 12/07/17 [History] Levalbuterol Tartrate [Xopenex Hfa] 2 puff INH Q4HR PRN 07/01/19 [History] Methyl B12 Plus 1 tab PO DAILY 03/14/20 [History] Nystatin [Nystop] 1 gm TOP TID #2 bottle 03/18/20 [Rx] Ferrous Sulfate 325 mg PO DAILY 06/12/21 [History] Fluticasone Propionate [Flovent] 50 mcg JOANNE BID 06/12/21 [History] Mirabegron [Myrbetriq] 25 mg PO DAILY 06/12/21 [History] Venlafaxine HCl [Venlafaxine ER] 150 mg PO DAILY 06/13/21 [History] Aspirin [Halfprin] 81 mg PO DAILY #30 tab.ec 06/29/21 [Rx] Docusate Sodium [Colace] 100 mg PO BID PRN #60 cap 06/29/21 [Rx] Oxybutynin [Oxybutynin ER] 5 mg PO BEDTIME #30 tab.er 06/29/21 [Rx] amLODIPine [Norvasc] 2.5 mg PO DAILY #30 tablet 06/29/21 [Rx] Past Medical History HEENT History: Reports: Allergic Rhinitis, Impaired Vision Other HEENT History: Wears glasses Cardiovascular History: Reports: Heart Murmur, Hypertension Respiratory History: Reports: Asthma Gastrointestinal History: Reports: Chronic Diarrhea, GERD Other Gastrointestinal History: Dysphagia Genitourinary History: Reports: Urinary Incontinence, Other (See Below) Other Genitourinary History: overactive bladder [employer] History: Reports: Endometriosis Musculoskeletal History: Reports: Osteoarthritis Other Musculoskeletal History: leg weakness Psychiatric History: Reports: Anxiety, Other (See Below) Other Psychiatric History: insomnia Endocrine/Metabolic History: Reports: Hypokalemia, Hypomagnesemia, Obesity/BMI 30+, Vitamin D Deficiency Dermatologic History: Reports: Chronic Cellulitis, Decubitus Ulcer, Venous Stasis Dermatitis Other Dermatologic History: sensitive skin, "breaks out easy" - Infectious Disease History Infectious Disease History: Reports: MRSA - Past Surgical History HEENT Surgical History: Reports: Tonsillectomy GI Surgical History: Reports: Colonoscopy, EGD Female Surgical History: Reports: Hysterectomy Social & Family History - Family History Family Medical History: No Pertinent Family History - Tobacco Use Tobacco Use Status *Q: Former Tobacco User Years of Tobacco use: 4 Packs/Tins Daily: 0.2 Used Tobacco, but Quit: No - Caffeine Use Caffeine Use: Reports: Coffee, Soda Other Caffeine Use: some days 1-2 cups of coffee other days 3-4. - Recreational Drug Use Recreational Drug Use: No - Living Situation & Occupation Living situation: Reports: , Alone (in an apartment) Occupation: Retired ED ROS GENERAL - Review of Systems Review Of Systems: Comprehensive ROS is negative, except as noted in HPI. ED EXAM, GENERAL - Physical Exam Exam: See Below Exam Limited By: No Limitations General Appearance: Alert, WD/WN, No Apparent Distress Ears: Normal External Exam, Hearing Grossly Normal Nose: Normal Inspection Throat/Mouth: Normal Inspection, Normal Lips, Normal Voice, No Airway Compromise Head: Atraumatic, Normocephalic Neck: Normal Inspection, Supple Respiratory/Chest: No Respiratory Distress, Lungs Clear, Normal Breath Sounds, No Accessory Muscle Use, Chest Non-Tender Cardiovascular: Normal Peripheral Pulses, Regular Rate, Rhythm, No Edema (4+ edema noted to bilateral lower extremities with erythema and weeping to right lower extremity), Systolic Murmur (Grade 2) Peripheral Pulses: 1+: Dorsalis Pedis (L), Dorsalis Pedis (R) GI/Abdominal: Normal Bowel Sounds, Soft, Non-Tender, No Distention, Other (Umbilical hernia noted) (Female) Exam: Deferred Rectal (Female) Exam: Deferred Back Exam: Normal Inspection Extremities: Normal Range of Motion, Normal Capillary Refill, Pedal Edema (4+ pedal edema noted to bilateral lower extremities with erythema), Redness (Bilateral lower extremities). No: Non-Tender (Tenderness noted to bilateral knees) Neurological: Alert, Oriented, Normal Cognition Psychiatric: Normal Affect, Normal Mood Skin Exam: Warm, Dry, Intact, No Rash, Erythema (Bilateral lower extremities) Lymphatic: No Adenopathy Course - Vital Signs Text/Narrative:: As stated above, patient presents with chronic back pain and acute episode of pain. Patient unable to get out of bed since last evening. Physical exam reveals a pale ill-appearing female. She does have a grade 2 systolic murmur. Lungs are clear bilaterally. Abdomen is obese and nontender. Bowel sounds are positive. She does have 4+ edema noted to her bilateral lower extremities with erythema. Yellow weeping noted from right lower extremity. Will obtain a chest x-ray as well as lab studies to include a CBC, CMP, magnesium, C-reactive protein and a proBNP as well as urinalysis with micro and culture if indicated. We will also obtain a Covid swab. Last Recorded V/S: Last Vital Signs Temp 97.8 F 10/01/21 16:43 Pulse 66 10/01/21 16:43 Resp 19 10/01/21 16:43 BP 157/74 H 10/01/21 16:43 Pulse Ox 100 10/01/21 16:43 - Orders/Labs/Meds Orders: Active Orders 24 hr Category Date Time Status Insert Urinary Catheter [OM.PC] Q24H Care 10/01/21 17:10 Ordered Urinary Catheter Assessment [RC] ASDIRECTED Care 10/01/21 17:18 Active Sodium Chloride 0.9% [Saline Flush] Med 10/01/21 17:25 Active 10 ml FLUSH ASDIRECTED PRN Saline Lock Insert [OM.PC] Stat Oth 10/01/21 17:25 Ordered Medication Orders Sodium Chloride (Sodium Chloride 0.9% 10 Ml Syringe) 10 ml FLUSH ASDIRECTED PRN PRN Reason: Keep Vein Open Last Admin: 10/01/21 18:23 Dose: 10 ml Documented by: SARAH Labs: Laboratory Tests 10/01/21 10/01/21 10/01/21 Range/Units 17:11 17:25 17:43 WBC (3.98-10.04) K/mm3 RBC (3.98-5.22) M/mm3 Hgb (11.2-15.7) gm/dl Hct (34.1-44.9) % MCV (79.4-94.8) fl MCH (25.6-32.2) pg MCHC (32.2-35.5) g/dl RDW Std Deviation (36.4-46.3) fL Plt Count (182-369) K/mm3 MPV (9.4-12.3) fl Neut % (Auto) (34.0-71.1) % Lymph % (Auto) (19.3-51.7) % Petroleum % (Auto) (4.7-12.5) % Eos % (Auto) (0.7-5.8) Baso % (Auto) (0.1-1.2) % Neut # (Auto) (1.56-6.13) K/mm3 Lymph # (Auto) (1.18-3.74) K/mm3 Petroleum # (Auto) (0.24-0.36) K/mm3 Eos # (Auto) (0.04-0.36) K/mm3 Baso # (Auto) (0.01-0.08) K/mm3 Sodium 141 (136-145) mEq/L Potassium 3.6 (3.5-5.1) mEq/L Chloride 104 (98-107) mEq/L Carbon Dioxide 31 (21-32) mEq/L Anion Gap 9.6 (5-15) BUN 18 (7-18) mg/dL Creatinine 0.8 (0.55-1.02) mg/dL Est Cr Clr Drug Dosing TNP Estimated GFR (MDRD) > 60 (>60) mL/min BUN/Creatinine Ratio 22.5 H (14-18) Glucose 100 H (70-99) mg/dL Calcium 9.4 (8.5-10.1) mg/dL Magnesium 1.4 L (1.8-2.4) mg/dL Total Bilirubin 1.1 H (0.2-1.0) mg/dL AST 16 (15-37) U/L ALT 14 (14-59) U/L Alkaline Phosphatase 116 (46-116) U/L C-Reactive Protein 1.0 (<1.0) mg/dL NT-Pro-B Natriuret Pep 1745 H (0-450) pg/mL Total Protein 6.6 (6.4-8.2) g/dl Albumin 3.2 L (3.4-5.0) g/dl Globulin 3.4 gm/dL Albumin/Globulin Ratio 0.9 L (1-2) Urine Color Yellow (Yellow) Urine Appearance Slt cloudy H (Clear) Urine pH 5.5 (5.0-8.0) Ur Specific [place] 1.025 (1.005-1.030) Urine Protein 1+ H (Negative) Urine Glucose (UA) Negative (Negative) Urine Ketones Negative (Negative) Urine Occult Blood 2+ H (Negative) Urine Nitrite Positive H (Negative) Urine Bilirubin Negative (Negative) Urine Urobilinogen 0.2 (0.2-1.0) Ur Leukocyte Esterase 2+ H (Negative) Urine RBC 5-10 H (0-5) /hpf Urine WBC 50-75 H (0-5) /hpf Ur Squamous Epith Cells 0-5 (0-5) /hpf Urine Bacteria Many H (FEW) /hpf Urine Mucus Few (FEW) /hpf SARS-CoV-2 RNA (CALEB) (NEGATIVE) 10/01/21 10/01/21 Range/Units 18:13 18:27 WBC 7.57 (3.98-10.04) K/mm3 RBC 4.09 (3.98-5.22) M/mm3 Hgb 12.8 D (11.2-15.7) gm/dl Hct 39.9 (34.1-44.9) % MCV 97.6 H (79.4-94.8) fl MCH 31.3 (25.6-32.2) pg MCHC 32.1 L (32.2-35.5) g/dl RDW Std Deviation 48.4 H (36.4-46.3) fL Plt Count 223 D (182-369) K/mm3 MPV 9.4 (9.4-12.3) fl Neut % (Auto) 64.2 (34.0-71.1) % Lymph % (Auto) 21.3 (19.3-51.7) % Petroleum % (Auto) 12.2 (4.7-12.5) % Eos % (Auto) 1.7 (0.7-5.8) Baso % (Auto) 0.3 (0.1-1.2) % Neut # (Auto) 4.87 (1.56-6.13) K/mm3 Lymph # (Auto) 1.61 (1.18-3.74) K/mm3 Petroleum # (Auto) 0.92 H (0.24-0.36) K/mm3 Eos # (Auto) 0.13 (0.04-0.36) K/mm3 Baso # (Auto) 0.02 (0.01-0.08) K/mm3 Sodium (136-145) mEq/L Potassium (3.5-5.1) mEq/L Chloride (98-107) mEq/L Carbon Dioxide (21-32) mEq/L Anion Gap (5-15) BUN (7-18) mg/dL Creatinine (0.55-1.02) mg/dL Est Cr Clr Drug Dosing Estimated GFR (MDRD) (>60) mL/min BUN/Creatinine Ratio (14-18) Glucose (70-99) mg/dL Calcium (8.5-10.1) mg/dL Magnesium (1.8-2.4) mg/dL Total Bilirubin (0.2-1.0) mg/dL AST (15-37) U/L ALT (14-59) U/L Alkaline Phosphatase (46-116) U/L C-Reactive Protein (<1.0) mg/dL NT-Pro-B Natriuret Pep (0-450) pg/mL Total Protein (6.4-8.2) g/dl Albumin (3.4-5.0) g/dl Globulin gm/dL Albumin/Globulin Ratio (1-2) Urine Color (Yellow) Urine Appearance (Clear) Urine pH (5.0-8.0) Ur Specific [place] (1.005-1.030) Urine Protein (Negative) Urine Glucose (UA) (Negative) Urine Ketones (Negative) Urine Occult Blood (Negative) Urine Nitrite (Negative) Urine Bilirubin (Negative) Urine Urobilinogen (0.2-1.0) Ur Leukocyte Esterase (Negative) Urine RBC (0-5) /hpf Urine WBC (0-5) /hpf Ur Squamous Epith Cells (0-5) /hpf Urine Bacteria (FEW) /hpf Urine Mucus (FEW) /hpf SARS-CoV-2 RNA (CALEB) Negative (NEGATIVE) Meds: Medications Generic Name Dose Route Start Last Admin Trade Name Freq PRN Reason Stop Dose Admin Sodium Chloride 10 ml 10/01/21 17:25 10/01/21 18:23 Sodium Chloride 0.9% 10 Ml Syringe FLUSH 10 ml ASDIRECTED PRN Administration Keep Vein Open Discontinued Medications Generic Name Dose Route Start Last Admin Trade Name Freq PRN Reason Stop Dose Admin Ceftriaxone Sodium 1 gm/ 100 mls @ 200 mls/hr 10/01/21 18:51 10/01/21 19:25 Sodium Chloride IV 10/01/21 19:20 200 mls/hr ONETIME ONE Administration - Re-Assessments/Exams Free Text/Narrative Re-Assessment/Exam: 10/01/21 18:33 Radiologist impression frontal view of the chest: Heart size is large. Upper mediastinum is within normal limits. Minimal scarring is seen with the left lung base. Lungs otherwise are clear. Bony structures are osteopenic. Slight scattered degenerative changes noted within the spine. Impression: 1. Slight cardiomegaly and mild scarring within the left lung base. 2. Nothing acute is appreciated on frontal chest x-ray. 10/01/21 1920 Hematology is essentially unremarkable Chemistry reveals a glucose of 100, magnesium 1.4, total bilirubin 1.1, C- reactive protein 1.0, proBNP 1745 Urinalysis reveals 1+ protein, 2+ occult blood, nitrate positive, leukocyte Estrace 2+, urine RBC 5-10, urine WBC 50-75, urine bacteria many, urine culture is pending Patient is Covid negative I have ordered for the patient receive a gram Rocephin IV. 10/01/21 20:09 I have asked nursing staff to attempt to ambulate the patient to see if we can get her discharged to home. 10/01/21 20:35 Nursing staff informs me that the patient was able to ambulate from her room to the nurses station and back to her room with the use of a walker. She will be discharged home with a prescription for Keflex 500 mg twice daily for 7 days to treat UTI. She will be instructed to follow-up with a primary care provider in 10 days time for reevaluation. Departure - Departure Time of Disposition: 20:38 Disposition: Home, Self-Care 01 Condition: Good Clinical Impression: UTI, Urinary tract infectious disease - Discharge Information Instructions: Urinary Tract Infection, Adult, [id number] Referrals: Ac Barnes MD [Primary Care Provider] - Forms: ED Department Discharge Additional Instructions: You were seen in the emergency department today with complaints of increased weakness, back pain and inability to get out of bed. Full evaluation was completed while in the emergency department to include lab studies and urinalysis. You were found to have a urinary tract infection and were given IV antibiotics while in the emergency department. I have sent a prescription for Keflex, an antibiotic, to be taken twice daily for the next 7 days. You can begin taking this medication tomorrow. You will need to follow-up with your primary care provider in about 10 days time for reevaluation. Should your condition worsen or change, do not hesitate returning to the emergency department. Sepsis Event Note (ED) - Evaluation Sepsis Screening Result: No Definite Risk - Focused Exam Vital Signs: Vital Signs Temp Pulse Resp BP Pulse Ox 10/01/21 16:43 97.8 F 66 19 157/74 H 100 - My Orders Last 24 Hours: My Active Orders 10/01/21 17:10 Insert Urinary Catheter [OM.PC] Q24H 10/01/21 17:18 Urinary Catheter Assessment [RC] ASDIRECTED 10/01/21 17:25 Sodium Chloride 0.9% [Saline Flush] 10 ml FLUSH ASDIRECTED PRN Saline Lock Insert [OM.PC] Stat - Assessment/Plan Last 24 Hours: My Active Orders 10/01/21 17:10 Insert Urinary Catheter [OM.PC] Q24H 10/01/21 17:18 Urinary Catheter Assessment [RC] ASDIRECTED 10/01/21 17:25 Sodium Chloride 0.9% [Saline Flush] 10 ml FLUSH ASDIRECTED PRN Saline Lock Insert [OM.PC] Stat
--- NOTE | 2021-10-01 18:31 | CR ---
Chest: Frontal view of the chest was obtained. Comparison: Prior chest x-ray of 06/12/21. Heart size is slightly enlarged. Upper mediastinum is within normal limits. Minimal scarring is seen with the left lung base. Lungs otherwise are clear. Bony structures are osteopenic. Slight scattered degenerative change is noted within the spine. Impression: 1. Slight cardiomegaly and mild scarring within the left lung base. 2. Nothing acute is appreciated on frontal chest x-ray. Diagnostic code #2
[2021-10-01] MEDS ORDERED: cefTRIAXone 1 GM in Sodium Chloride 0.9% 100 ML IV ONE (18:51)
== END 2021-10-01 20:53 | disposition home or self-care (01) ==
LOC: SUPCPDRO 16:35 → JD.ED 16:35
DX: N39.0 Urinary tract infection, site not specified (principal); I10 Essential (primary) hypertension; M19.90 Unspecified osteoarthritis, unspecified site; E66.9 Obesity, unspecified; Z68.30 Body mass index [BMI] 30.0-30.9, adult; Z88.8 Allergy status to other drugs, medicaments and biological substances; Z79.82 Long term (current) use of aspirin; Z87.891 Personal history of nicotine dependence; Z20.822 Contact with and (suspected) exposure to COVID-19
CPT/HCPCS: 36415; 71045; 80053; 81001; 83735; 83880; 85025; 86140; 96365; 99284; J0696; U0002

== ENCOUNTER 2021-10-09 14:41 | Emergency (ER) | payer MEDICARE, MEDICAID ==
[2021-10-09] MEDS ORDERED: Sodium Chloride 0.9% 10 ML Syringe FLUSH PRN (15:20)
--- NOTE | 2021-10-09 15:53 | EDM.PDOC ---
ED HPI GENERAL MEDICAL PROBLEM - General Chief Complaint: Cardiovascular Problem Stated Complaint: EVA AMB Time Seen by Provider: 10/09/21 15:02 Source of Information: Reports: Patient, EMS History Limitations: Reports: No Limitations - History of Present Illness INITIAL COMMENTS - FREE TEXT/NARRATIVE: 76-year-old female presents the emergency department today with increased weakness. Patient has been chair bound for the past 2 days. She states she is unable to get herself up and out of the chair as she has no strength to her upper arms. Patient states that her left hand and left shoulder are sore and painful and she states she does need both arms to get herself up out of the chair. Patient's bilateral lower extremities are very swollen and does have circumferential redness and weeping of the lower legs. Yellow crusting is noted to the right lower extremity. Patient does have a history of chronic venous stasis dermatitis as well as chronic dependent edema. She has been admitted to this hospital in the past and is always resistant to come in due to the fact that she does not want to be placed in a prison. She states she does have a neighbor lady that comes to check on her frequently and goes grocery shopping for her. She is able to ambulate minimally however does primarily use a wheelchair to get around the house. She denies any recent fever, chills, nausea, vomiting or diarrhea. She denies any urinary symptoms. Left Hand Pain Score (Numeric/FACES): 8 - Related Data Allergies Allergy/AdvReac Type Severity Reaction Status Date / Time losartan Allergy Severe Other Verified 06/12/21 20:03 fexofenadine AdvReac Mild Insomnia Verified 10/11/21 11:24 Home Meds: Home Meds Metoprolol Succinate [Toprol XL 100mg] 50 mg PO DAILY 12/07/17 [History] Levalbuterol Tartrate [Xopenex Hfa] 2 puff INH Q4HR PRN 07/01/19 [History] Methyl B12 Plus 1 tab PO DAILY 03/14/20 [History] Nystatin [Nystop] 1 gm TOP TID #2 bottle 03/18/20 [Rx] Ferrous Sulfate 325 mg PO DAILY 06/12/21 [History] Fluticasone Propionate [Flovent] 50 mcg JOANNE BID 06/12/21 [History] Mirabegron [Myrbetriq] 25 mg PO DAILY 06/12/21 [History] Venlafaxine HCl [Venlafaxine ER] 150 mg PO DAILY 06/13/21 [History] Aspirin [Halfprin] 81 mg PO DAILY #30 tab.ec 06/29/21 [Rx] Docusate Sodium [Colace] 100 mg PO BID PRN #60 cap 06/29/21 [Rx] Oxybutynin [Oxybutynin ER] 5 mg PO BEDTIME #30 tab.er 06/29/21 [Rx] amLODIPine [Norvasc] 2.5 mg PO DAILY #30 tablet 06/29/21 [Rx] Past Medical History HEENT History: Reports: Allergic Rhinitis, Impaired Vision Other HEENT History: Wears glasses Cardiovascular History: Reports: Heart Murmur, Hypertension Respiratory History: Reports: Asthma Gastrointestinal History: Reports: Chronic Diarrhea, GERD Other Gastrointestinal History: Dysphagia Genitourinary History: Reports: Urinary Incontinence, Other (See Below) Other Genitourinary History: overactive bladder [employer]ADE [employer]ATOR History: Reports: Endometriosis Musculoskeletal History: Reports: Osteoarthritis Other Musculoskeletal History: leg weakness Psychiatric History: Reports: Anxiety, Other (See Below) Other Psychiatric History: insomnia Endocrine/Metabolic History: Reports: Hypokalemia, Hypomagnesemia, Obesity/BMI 30+, Vitamin D Deficiency Dermatologic History: Reports: Chronic Cellulitis, Decubitus Ulcer, Venous Stasis Dermatitis Other Dermatologic History: sensitive skin, "breaks out easy" - Infectious Disease History Infectious Disease History: Reports: MRSA, Novel Coronavirus - Past Surgical History HEENT Surgical History: Reports: Tonsillectomy GI Surgical History: Reports: Colonoscopy, EGD Female Surgical History: Reports: Hysterectomy Social & Family History - Family History Family Medical History: No Pertinent Family History - Tobacco Use Tobacco Use Status *Q: Never Tobacco User - Caffeine Use Caffeine Use: Reports: Coffee Other Caffeine Use: some days 1-2 cups of coffee other days 3-4. - Recreational Drug Use Recreational Drug Use: No - Living Situation & Occupation Living situation: Reports: , Alone (in an apartment) Occupation: Retired ED ROS GENERAL - Review of Systems Review Of Systems: Comprehensive ROS is negative, except as noted in HPI. ED EXAM, GENERAL - Physical Exam Exam: See Below Exam Limited By: No Limitations General Appearance: Alert, WD/WN, No Apparent Distress Ears: Normal External Exam, Hearing Grossly Normal Nose: Normal Inspection Throat/Mouth: Normal Inspection, Normal Lips, Normal Voice, No Airway Compromise Head: Atraumatic Neck: Normal Inspection, Supple Respiratory/Chest: No Respiratory Distress, Lungs Clear, Normal Breath Sounds, No Accessory Muscle Use, Chest Non-Tender Cardiovascular: Normal Peripheral Pulses, Regular Rate, Rhythm, No Murmur. No: No Edema (3+ pitting edema noted to bilateral lower extremities) Peripheral Pulses: 1+: Dorsalis Pedis (L), Dorsalis Pedis (R) GI/Abdominal: Normal Bowel Sounds, Soft, Non-Tender, No Distention (Female) Exam: Deferred Rectal (Female) Exam: Deferred Back Exam: Normal Inspection Extremities: Pedal Edema (3+ pitting edema noted to the bilateral lower extremities), Increased Warmth (To the areas of circumferential erythema noted to her bilateral lower legs) Neurological: Alert, Oriented, Normal Cognition Psychiatric: Normal Affect, Normal Mood Skin Exam: Warm, Intact, Erythema (Circumferential area of erythema noted to bilateral lower extremities). No: Dry (Dry yellow crusting noted to the right lower extremity) Lymphatic: No Adenopathy Course - Vital Signs Text/Narrative:: Upon exam, the patient is unkempt in appearance. She is grossly edematous to her bilateral lower extremities. She does have circumferential area of erythema and warmth noted to her bilateral lower extremities. There is yellow crusting noted to the right lower extremity. Do not appreciate any open areas to her bilateral lower extremities. Pedal pulses are palpable 1+. She does have 3+ pitting edema noted to her bilateral feet and lower extremities. Remainder of physical exam is otherwise unremarkable. She is hemodynamically stable and afebrile. Will obtain lab studies to include a CBC, CMP, magnesium, C-reactive protein, proBNP. Also obtain a portable chest x-ray as well as a urinalysis with micro and culture if indicated. Last Recorded V/S: Last Vital Signs Temp 97.9 F 10/09/21 19:25 Pulse 61 10/09/21 15:00 Resp 18 10/09/21 19:25 BP 122/50 L 10/09/21 19:25 Pulse Ox 93 L 10/09/21 19:25 - Orders/Labs/Meds Labs: Laboratory Tests 10/09/21 10/09/21 10/09/21 Range/Units 15:35 15:40 15:40 WBC 7.05 (3.98-10.04) K/mm3 RBC 3.84 L (3.98-5.22) M/mm3 Hgb 12.0 (11.2-15.7) gm/dl Hct 38.1 (34.1-44.9) % MCV 99.2 H (79.4-94.8) fl MCH 31.3 (25.6-32.2) pg MCHC 31.5 L (32.2-35.5) g/dl RDW Std Deviation 50.0 H (36.4-46.3) fL Plt Count 197 (182-369) K/mm3 MPV 9.7 (9.4-12.3) fl Neut % (Auto) 60.3 (34.0-71.1) % Lymph % (Auto) 22.4 (19.3-51.7) % Moffat % (Auto) 13.8 H (4.7-12.5) % Eos % (Auto) 3.0 (0.7-5.8) Baso % (Auto) 0.4 (0.1-1.2) % Neut # (Auto) 4.25 (1.56-6.13) K/mm3 Lymph # (Auto) 1.58 (1.18-3.74) K/mm3 Moffat # (Auto) 0.97 H (0.24-0.36) K/mm3 Eos # (Auto) 0.21 (0.04-0.36) K/mm3 Baso # (Auto) 0.03 (0.01-0.08) K/mm3 Sodium 140 (136-145) mEq/L Potassium 3.7 (3.5-5.1) mEq/L Chloride 104 (98-107) mEq/L Carbon Dioxide 31 (21-32) mEq/L Anion Gap 8.7 (5-15) BUN 18 (7-18) mg/dL Creatinine 0.9 (0.55-1.02) mg/dL Est Cr Clr Drug Dosing 46.36 mL/min Estimated GFR (MDRD) > 60 (>60) mL/min BUN/Creatinine Ratio 20.0 H (14-18) Glucose 135 H (70-99) mg/dL Calcium 8.9 (8.5-10.1) mg/dL Magnesium 1.4 L (1.8-2.4) mg/dL Total Bilirubin 0.8 (0.2-1.0) mg/dL AST 18 (15-37) U/L ALT 8 L (14-59) U/L Alkaline Phosphatase 90 (46-116) U/L C-Reactive Protein 1.9 H* (<1.0) mg/dL NT-Pro-B Natriuret Pep (0-450) pg/mL Total Protein 6.1 L (6.4-8.2) g/dl Albumin 2.7 L (3.4-5.0) g/dl Globulin 3.4 gm/dL Albumin/Globulin Ratio 0.8 L (1-2) Urine Color (Yellow) Urine Appearance (Clear) Urine pH (5.0-8.0) Ur Specific [place] (1.005-1.030) Urine Protein (Negative) Urine Glucose (UA) (Negative) Urine Ketones (Negative) Urine Occult Blood (Negative) Urine Nitrite (Negative) Urine Bilirubin (Negative) Urine Urobilinogen (0.2-1.0) Ur Leukocyte Esterase (Negative) Urine RBC (0-5) /hpf Urine WBC (0-5) /hpf Ur Epithelial Cells (0-5) /hpf Urine Bacteria (FEW) /hpf Urine Mucus (FEW) /hpf SARS-CoV-2 RNA (CALEB) Negative (NEGATIVE) 10/09/21 10/09/21 Range/Units 15:40 17:05 WBC (3.98-10.04) K/mm3 RBC (3.98-5.22) M/mm3 Hgb (11.2-15.7) gm/dl Hct (34.1-44.9) % MCV (79.4-94.8) fl MCH (25.6-32.2) pg MCHC (32.2-35.5) g/dl RDW Std Deviation (36.4-46.3) fL Plt Count (182-369) K/mm3 MPV (9.4-12.3) fl Neut % (Auto) (34.0-71.1) % Lymph % (Auto) (19.3-51.7) % Moffat % (Auto) (4.7-12.5) % Eos % (Auto) (0.7-5.8) Baso % (Auto) (0.1-1.2) % Neut # (Auto) (1.56-6.13) K/mm3 Lymph # (Auto) (1.18-3.74) K/mm3 Moffat # (Auto) (0.24-0.36) K/mm3 Eos # (Auto) (0.04-0.36) K/mm3 Baso # (Auto) (0.01-0.08) K/mm3 Sodium (136-145) mEq/L Potassium (3.5-5.1) mEq/L Chloride (98-107) mEq/L Carbon Dioxide (21-32) mEq/L Anion Gap (5-15) BUN (7-18) mg/dL Creatinine (0.55-1.02) mg/dL Est Cr Clr Drug Dosing mL/min Estimated GFR (MDRD) (>60) mL/min BUN/Creatinine Ratio (14-18) Glucose (70-99) mg/dL Calcium (8.5-10.1) mg/dL Magnesium (1.8-2.4) mg/dL Total Bilirubin (0.2-1.0) mg/dL AST (15-37) U/L ALT (14-59) U/L Alkaline Phosphatase (46-116) U/L C-Reactive Protein (<1.0) mg/dL NT-Pro-B Natriuret Pep 1665 H (0-450) pg/mL Total Protein (6.4-8.2) g/dl Albumin (3.4-5.0) g/dl Globulin gm/dL Albumin/Globulin Ratio (1-2) Urine Color Yellow (Yellow) Urine Appearance Clear (Clear) Urine pH 5.5 (5.0-8.0) Ur Specific [place] 1.020 (1.005-1.030) Urine Protein Negative (Negative) Urine Glucose (UA) Negative (Negative) Urine Ketones Negative (Negative) Urine Occult Blood Trace-lysed H (Negative) Urine Nitrite Negative (Negative) Urine Bilirubin Negative (Negative) Urine Urobilinogen 0.2 (0.2-1.0) Ur Leukocyte Esterase Negative (Negative) Urine RBC 0-5 (0-5) /hpf Urine WBC Not seen (0-5) /hpf Ur Epithelial Cells Not seen (0-5) /hpf Urine Bacteria Not seen (FEW) /hpf Urine Mucus Not seen (FEW) /hpf SARS-CoV-2 RNA (CALEB) (NEGATIVE) Meds: Medications Discontinued Medications Generic Name Dose Route Start Last Admin Trade Name N[place]um PRN Reason Stop Dose Admin Hydromorphone HCl 0.25 mg 10/09/21 18:42 10/09/21 18:49 Hydromorphone 0.5 Mg/0.5 Ml Syringe IVPUSH 10/09/21 18:43 0.25 mg ONETIME ONE Administration Sodium Chloride 10 ml 10/09/21 15:20 10/09/21 15:47 Sodium Chloride 0.9% 10 Ml Syringe FLUSH 10 ml ASDIRECTED PRN Administration Keep Vein Open - Re-Assessments/Exams Free Text/Narrative Re-Assessment/Exam: 10/09/21 16:15 Radiologist impression portable view of the chest: 1. Incidental findings. 2. Nothing acute is appreciated on portable chest x-ray. 10/09/21 18:06 Hemotology reveals a WBC of 7.05, hemoglobin 12.0, hematocrit 38.1, platelet count 187 Chemistry reveals a sodium of 140, potassium 3.7, carbon dioxide 31, anion gap 8.7, BUN 18, creatinine 0.9, GFR greater than 60, glucose 135, magnesium 1.4, C- reactive protein 1.9, proBNP 1665, total protein 6.1, albumin 2.7 Urinalysis reveals trace of lysed occult blood and is otherwise unremarkable Patient is Covid negative I do feel that this patient does need to be admitted to the hospital due to failure to thrive, generalized weakness and pain. We do not have any beds available at this hospital and we are on diversion. I phoned [facility] in [place] and spoke with Dr. Monk, has agreed to accept this patient in transfer. Patient will be transferred to [facility] via ambulance service. Departure - Departure Time of Disposition: 18:06 Disposition: DC/Tfer to [facility] 02 Reason for Transfer *Q: Other Condition: Good Clinical Impression: Failure to thrive syndrome, adult, Generalized weakness, Dependent edema, Chronic venous stasis dermatitis of both lower extremities Referrals: Ac Barnes MD [Primary Care Provider] - Forms: ED Department Discharge
--- NOTE | 2021-10-09 16:13 | CR ---
Chest: Portable view of the chest was obtained. Comparison: Prior chest x-ray of 10/01/21. Heart size and mediastinum are within normal limits for portable technique. Lungs are felt to be clear. Slight scoliosis is noted within the spine. No acute osseous abnormality is appreciated. Impression: 1. Incidental findings. 2. Nothing acute is appreciated on portable chest x-ray. Diagnostic code #2
[2021-10-09] MEDS ORDERED: HYDROmorphone 0.5 MG/0.5 ML Syringe IVPUSH ONE (18:42)
== END 2021-10-09 19:25 ==
LOC: JD.ED 14:41 → SUPCPDRO 14:41 → JD.ED 19:25
DX: R53.1 Weakness (principal); I87.8 Other specified disorders of veins; R60.0 Localized edema; R62.7 Adult failure to thrive; K21.9 Gastro-esophageal reflux disease without esophagitis; I10 Essential (primary) hypertension; E66.9 Obesity, unspecified; Z68.35 Body mass index [BMI] 35.0-35.9, adult; Z88.8 Allergy status to other drugs, medicaments and biological substances; Z79.82 Long term (current) use of aspirin; Z79.899 Other long term (current) drug therapy; Z20.822 Contact with and (suspected) exposure to COVID-19
CPT/HCPCS: 36415; 71045; 80053; 81001; 83735; 83880; 85025; 86140; 96374; 99285; J1170; U0002

== ENCOUNTER 2021-11-24 10:45 | Emergency (ER) | payer MEDICARE, MEDICAID ==
[2021-11-24] MEDS ORDERED: fentaNYL 100 MCG/2 ML SDV IVPUSH ONE ×7 (11:18→21:10)
[2021-11-24] MEDS ORDERED: Lactated Ringers 250 ML IV ONE ×2 (11:38→12:23)
[2021-11-24] MEDS ORDERED: Iopamidol 755 Mg/ML 100 ML Bottle IVPUSH ONE (12:03)
[2021-11-24] MEDS ORDERED: Sodium Chloride 0.9% 10 ML Syringe FLUSH ONE (12:03)
[2021-11-24] MEDS ORDERED: Sodium Chloride 0.9% 100 ML IV SCH (12:15)
[2021-11-24] MEDS ORDERED: Lactated Ringers 500 ML IV ONE (13:03)
[2021-11-24] MEDS ORDERED: Heparin Sodium 5,000 Units/ML Vial IVPUSH ONE (13:31)
[2021-11-24] MEDS ORDERED: Heparin Sodium/D5W 25,000 UNITS/500 ML BAG IV SCH (13:45)
[2021-11-24] MEDS ORDERED: Lactated Ringers 1,000 ML IV ONE (14:37)
[2021-11-24] MEDS ORDERED: Lactated Ringers 1,000 ML IV SCH (16:30)
[2021-11-24] MEDS ORDERED: Piperacillin/Tazobactam 4.5 GM in Sodium Chloride 0.9% 100 ML IV ONE (18:43)
[2021-11-24] MEDS: Norepinephrine 4 MG in Dextrose 5% in Water 246 ML IV SCH ×2 (19:39)
[2021-11-24] MEDS ORDERED: traMADol 50 MG Tab PO ONE (23:23)
[2021-11-25] MEDS ORDERED: Acetaminophen 325 MG Tab PO ONE ×2 (00:18→07:57)
[2021-11-25] MEDS ORDERED: Piperacillin/Tazobactam 4.5 GM in Sodium Chloride 0.9% 100 ML IV ONE (02:00)
[2021-11-25] MEDS: Norepinephrine 4 MG in Dextrose 5% in Water 246 ML IV SCH ×2 (06:26)
[2021-11-25] MEDS ORDERED: traMADol 50 MG Tab PO ONE (07:57)
[2021-11-25] MEDS ORDERED: Piperacillin/Tazobactam 4.5 GM in Sodium Chloride 0.9% 100 ML IV SCH (10:30)
== END 2021-11-25 15:40 ==
LOC: JD.ED 10:45
DX: A41.9 Sepsis, unspecified organism (principal); K80.70 Calculus of gallbladder and bile duct without cholecystitis without obstruction; I26.99 Other pulmonary embolism without acute cor pulmonale; R74.8 Abnormal levels of other serum enzymes; R09.02 Hypoxemia; E86.1 Hypovolemia; I48.91 Unspecified atrial fibrillation; I10 Essential (primary) hypertension; J45.909 Unspecified asthma, uncomplicated; K21.9 Gastro-esophageal reflux disease without esophagitis; M19.90 Unspecified osteoarthritis, unspecified site; E66.9 Obesity, unspecified; Z88.8 Allergy status to other drugs, medicaments and biological substances; Z68.38 Body mass index [BMI] 38.0-38.9, adult; Z20.822 Contact with and (suspected) exposure to COVID-19
CPT/HCPCS: 36415; 36600; 51702; 71045; 71275; 76705; 80053; 80143; 81001; 82803; 83605; 83735; 83880; 84484; 85007; 85025; 85027; 85379; 85610; 85730; 87040; 96365; 96366; 96367; 96368; 96375; 96376; 99285; A9270; J1644; J2543; J3010; J7060; J7120; U0002

== ENCOUNTER 2022-06-18 03:16 | Emergency (ER) | payer MEDICARE, MEDICAID ==
[2022-06-18 04:13] LABS: ESTIMATED GFR 51 mL/min (>60)
[2022-06-18] MEDS ORDERED: Levofloxacin 500 MG Tab PO ONE (05:20)
== END 2022-06-18 06:55 | disposition home or self-care (01) ==
LOC: JD.ED 03:16
DX: N39.0 Urinary tract infection, site not specified (principal); R31.9 Hematuria, unspecified; I48.91 Unspecified atrial fibrillation; I11.0 Hypertensive heart disease with heart failure; I50.9 Heart failure, unspecified; K21.9 Gastro-esophageal reflux disease without esophagitis; E66.9 Obesity, unspecified; Z68.30 Body mass index [BMI] 30.0-30.9, adult; Z88.8 Allergy status to other drugs, medicaments and biological substances
CPT/HCPCS: 36415; 70450; 71045; 80053; 81001; 83880; 84443; 84484; 85007; 85027; 85610; 85730; 87086; 87088; 87186; 93005; 99285; A9270

== ENCOUNTER 2023-03-08 22:34 | Emergency (ER) | payer MEDICARE, MEDICAID ==
[2023-03-08 23:07] LABS: BASOPHILS ABSOLUTE AUTO 0.02 K/mm3 (0.01-0.08); BASOPHILS PERCENT AUTO 0.3 % (0.1-1.2); EOSINOPHILS ABSOLUTE AUTO 0.12 K/mm3 (0.04-0.36); EOSINOPHILS PERCENT AUTO 1.7 (0.7-5.8); HEMATOCRIT 40.3 % (34.1-44.9); HEMOGLOBIN 12.7 gm/dl (11.2-15.7); IMMATURE GRAN ABSOLUTE AUTO 0.01 K/mm3 (0.00-0.10); IMMATURE GRAN PERCENT AUTO 0.1 % (<=1.0); LYMPHOCYTES ABSOLUTE AUTO 2.26 K/mm3 (1.18-3.74); LYMPHOCYTES PERCENT AUTO 31.9 % (19.3-51.7); MEAN CORPUSCULAR HEMOGLOBIN 32.5 pg (25.6-32.2); MEAN CORPUSCULAR HGB CONC 31.5 g/dl (32.2-35.5); MEAN CORPUSCULAR VOLUME 103.1 fl (79.4-94.8); MEAN PLATELET VOLUME 9.6 fl (9.4-12.3); MONOCYTES ABSOLUTE AUTO 0.93 K/mm3 (0.24-0.36); MONOCYTES PERCENT AUTO 13.1 % (4.7-12.5); NEUTROPHILS ABSOLUTE AUTO 3.75 K/mm3 (1.56-6.13); NEUTROPHILS PERCENT AUTO 52.9 % (34.0-71.1); PLATELET COUNT,PLT 214 K/mm3 (182-369); RED BLOOD CELL COUNT 3.91 M/mm3 (3.98-5.22); WHITE BLOOD CELL COUNT,WBC 7.09 K/mm3 (3.98-10.04)
[2023-03-08 23:27] LABS: A/G RATIO 1.2 (1-2); ALANINE AMINOTRANSFERASE,ALT 18 U/L (14-59); ALBUMIN 3.3 g/dl (3.4-5.0); ALKALINE PHOSPHATASE 95 U/L (46-116); ANION GAP 9.1 (5-15); ASPARTATE AMNIOTRANSFERASE,AST 17 U/L (15-37); BILIRUBIN TOTAL 0.7 mg/dL (0.2-1.0); BLOOD UREA NITROGEN,BUN 31 mg/dL (7-18); BUN/CREATININE RATIO 28.2 (14-18); CALCIUM 9.1 mg/dL (8.5-10.1); CARBON DIOXIDE,CO2 34 mEq/L (21-32); CHLORIDE,CL 101 mEq/L (98-107); CREATININE 1.1 mg/dL (0.55-1.02); ESTIMATED GFR 51 mL/min (>60); GLUCOSE RANDOM 102 mg/dL (70-99); POTASSIUM,K 4.1 mEq/L (3.5-5.1); PROTEIN TOTAL,TP 6.1 g/dl (6.4-8.2); SODIUM,NA 140 mEq/L (136-145)
== END 2023-03-09 01:35 | disposition home or self-care (01) ==
LOC: JD.ED 22:34
DX: R41.82 Altered mental status, unspecified (principal); I48.91 Unspecified atrial fibrillation; I11.0 Hypertensive heart disease with heart failure; I50.9 Heart failure, unspecified; K21.9 Gastro-esophageal reflux disease without esophagitis; E66.9 Obesity, unspecified; Z68.30 Body mass index [BMI] 30.0-30.9, adult; Z88.8 Allergy status to other drugs, medicaments and biological substances
CPT/HCPCS: 36415; 70450; 70450-26; 71045; 71045-26; 80053; 84484; 85025; 93005; 93010; 99285

== ENCOUNTER 2024-05-16 11:14 | Inpatient (IN) | payer MEDICARE, MEDICAID ==
[2024-05-16] MEDS ORDERED: Sodium Chloride 0.9% 10 ML Syringe FLUSH PRN (11:54)
[2024-05-16 12:33] LABS: HEMATOCRIT 44.9 % (37.0-47.0); HEMOGLOBIN 14.3 gm/dl (12.0-16.0); MEAN CORPUSCULAR HEMOGLOBIN 31.3 pg (28.0-32.0); MEAN CORPUSCULAR HGB CONC 31.8 g/dl (32.0-36.0); MEAN CORPUSCULAR VOLUME 98.2 fl (83.0-99.0); MEAN PLATELET VOLUME 9.5 fl (9.4-12.3); PLATELET COUNT,PLT 180 K/mm3 (150-400); RED BLOOD CELL COUNT 4.57 M/mm3 (4.10-5.30)
[2024-05-16 12:35] LABS: APPEARANCE,URINE SLT CLOUDY (Clear); BILIRUBIN,URINE NEGATIVE (Negative); COLOR,URINE DARK YELLOW (Yellow); GLUCOSE,URINE NEGATIVE (Negative); KETONES,URINE NEGATIVE (Negative); LEUKOCYTE ESTERASE,URINE 2+ (Negative); NITRITE,URINE POSITIVE (Negative); OCCULT BLOOD,URINE TRACE-INTACT (Negative); PH,URINE 5.5 (5.0-8.0); PROTEIN,URINE TRACE (Negative); UROBILINOGEN,URINE 0.2 (0.2-1.0)
[2024-05-16] MEDS: Sodium Chloride 0.9% 1,000 ML IV STA ×2 (12:41→13:21)
[2024-05-16 12:46] LABS: BACTERIA,URINE MANY /hpf (FEW); MUCUS,URINE RARE /hpf (FEW); SQUAMOUS EPITHELIAL CELLS,UR 0-5 /hpf (0-5); WBC,URINE >100 /hpf (0-5)
[2024-05-16 12:52] LABS: INR 1.08; PROTHROMBIN TIME 11.4 SECONDS (9.7-12.0)
[2024-05-16 13:04] LABS: LACTIC ACID 3.5 mmol/L (0.4-2.0)
[2024-05-16 13:06] LABS: A/G RATIO 0.9 (1-2); ALBUMIN 2.9 g/dl (3.4-5.0); ANION GAP 13.4 (5-15); BILIRUBIN TOTAL 1.8 mg/dL (0.2-1.0); BUN/CREATININE RATIO 23.8 (14-18); C-REACTIVE PROTEIN 5.27 mg/dL (<0.30); CALCIUM 9.4 mg/dL (8.5-10.1); CREATININE 1.3 mg/dL (0.55-1.02); EST CRCL DRUG DOSING (CG) 29.8 mL/min; POTASSIUM,K 3.4 mEq/L (3.5-5.1); PROTEIN TOTAL,TP 6.1 g/dl (6.4-8.2)
[2024-05-16 13:08] LABS: CORONAVIRUS COVID-19 NAA NEGATIVE (NEGATIVE); INFLUENZA A NAA NEGATIVE (NEGATIVE); RESPIRATORY SYNCYTIAL VIR NAA NEGATIVE (NEGATIVE)
[2024-05-16] MEDS: Acetaminophen 325 MG Tab PO ONE (13:20)
[2024-05-16] MEDS: Ondansetron 4 MG/2 ML SDV IVPUSH ONE (13:21)
[2024-05-16 13:29] LABS: BAND PERCENT MAN 34 % (0-10); BASOPHILS PERCENT MAN 0 (0.1-1.2); EOSINOPHILS PERCENT MAN 0 % (0.7-5.8); HYPOCHROMASIA 1+ SLIGHT; LYMPHOCYTES % ATYPICAL MANUAL 0 %; LYMPHOCYTES PERCENT MAN 6 % (20-40); MONOCYTES PERCENT MAN 2 % (2-10)
[2024-05-16 13:30] LABS: PLATELET COUNT ESTIMATE ADEQUATE
[2024-05-16] MEDS: Iopamidol 755 Mg/ML 100 ML Bottle IVPUSH ONE (13:34)
[2024-05-16] MEDS ORDERED: Sodium Chloride 0.9% 100 ML IV SCH (13:45)
[2024-05-16] MEDS: Piperacillin/Tazobactam 4.5 GM in Sodium Chloride 0.9% 100 ML IV ONE (14:13)
[2024-05-16] MEDS: Acetaminophen/HYDROcodone 325-5 MG Tab PO ONE (16:55)
[2024-05-16] MEDS: Magnesium Sulfate/Water 2 GM in Premix Bag 1 BAG IV ONE (16:56)
[2024-05-16] MEDS: Sodium Chloride 0.9% 500 ML IV STA (17:53)
[2024-05-16] MEDS ORDERED: Acetaminophen 325 MG Tab PO PRN (18:06)
[2024-05-16] MEDS ORDERED: Ondansetron 4 MG Tab.DIS PO PRN (18:06)
[2024-05-16] MEDS: Piperacillin/Tazobactam 4.5 GM Vial ONE (18:07)
[2024-05-16] MEDS: Linezolid 600 MG in Premix Bag 1 BAG IV SCH (20:42)
[2024-05-16] MEDS: Morphine 2 MG/ML SYRINGE IVPUSH PRN (20:42)
[2024-05-16] MEDS: Apixaban 5 MG Tab PO SCH (20:47)
[2024-05-16] MEDS: Piperacillin/Tazobactam 4.5 GM in Sodium Chloride 0.9% 100 ML IV SCH (23:00)
[2024-05-17] MEDS: Sodium Chloride 0.9% 1,000 ML IV SCH ×2 (01:46→16:39)
[2024-05-17 04:47] LABS: BASOPHILS PERCENT AUTO 0.1 % (0.0-1.0); HEMATOCRIT 43.1 % (37.0-47.0); HEMOGLOBIN 13.7 gm/dl (12.0-16.0); IMMATURE GRAN ABSOLUTE AUTO 0.03 K/mm3 (0.00-0.05); IMMATURE GRAN PERCENT AUTO 0.4 % (0.0-0.4); LYMPHOCYTES ABSOLUTE AUTO 0.2 K/mm3 (1.0-4.8); MEAN CORPUSCULAR HEMOGLOBIN 31.4 pg (28.0-32.0); MEAN CORPUSCULAR HGB CONC 31.8 g/dl (32.0-36.0); MEAN CORPUSCULAR VOLUME 98.6 fl (83.0-99.0); MEAN PLATELET VOLUME 10.3 fl (9.4-12.3); MONOCYTES ABSOLUTE AUTO 0.3 K/mm3 (0.0-0.8); MONOCYTES PERCENT AUTO 4.1 % (0.0-8.0); NEUTROPHILS PERCENT AUTO 92.4 % (41.0-71.0); PLATELET COUNT,PLT 148 K/mm3 (150-400); RED BLOOD CELL COUNT 4.37 M/mm3 (4.10-5.30); WHITE BLOOD CELL COUNT,WBC 7.55 K/mm3 (3.9-11.3)
[2024-05-17 05:14] LABS: A/G RATIO 0.8 (1-2); ALBUMIN 2.3 g/dl (3.4-5.0); ANION GAP 12.2 (5-15); BILIRUBIN TOTAL 3.2 mg/dL (0.2-1.0); BUN/CREATININE RATIO 27.3 (14-18); CALCIUM 8.2 mg/dL (8.5-10.1); CREATININE 1.1 mg/dL (0.55-1.02); EST CRCL DRUG DOSING (CG) 36.7 mL/min; POTASSIUM,K 3.2 mEq/L (3.5-5.1); PROTEIN TOTAL,TP 5.1 g/dl (6.4-8.2)
[2024-05-17] MEDS: oxyCODONE 5 MG Tab PO PRN (05:25)
[2024-05-17 06:21] LABS: SLIDE REVIEW ABNORMAL SMEAR
[2024-05-17] MEDS: Furosemide 20 MG Tab PO SCH (08:12)
[2024-05-17] MEDS: Polyethylene Glycol 3350 Powder 17 GM Packet PO SCH (08:12)
[2024-05-17] MEDS: Mirabegron 25 MG Tab Extended Release PO SCH (08:12)
[2024-05-17] MEDS: Potassium Chloride 20 MEQ Tab.ER PO ONE (08:21)
[2024-05-17] MEDS ORDERED: Enoxaparin 40 MG/0.4 ML Syringe SUBCUT SCH (09:00)
[2024-05-17] MEDS: Albuterol/Ipratropium 3.0-0.5 MG/3 ML Neb Soln NEB SCH (09:16)
[2024-05-17] MEDS: Apixaban 5 MG Tab PO SCH (09:41)
[2024-05-17] MEDS: Venlafaxine 75 MG Cap.ER PO SCH (18:22)
[2024-05-18 06:03] LABS: BASOPHILS PERCENT AUTO 0.2 % (0.0-1.0); EOSINOPHILS PERCENT AUTO 0.6 % (0.0-6.0); HEMOGLOBIN 12.7 gm/dl (12.0-16.0); IMMATURE GRAN ABSOLUTE AUTO 0.02 K/mm3 (0.00-0.05); IMMATURE GRAN PERCENT AUTO 0.4 % (0.0-0.4); LYMPHOCYTES ABSOLUTE AUTO 0.4 K/mm3 (1.0-4.8); LYMPHOCYTES PERCENT AUTO 7.4 % (24.0-44.0); MEAN CORPUSCULAR HEMOGLOBIN 31.2 pg (28.0-32.0); MEAN CORPUSCULAR HGB CONC 31.8 g/dl (32.0-36.0); MEAN CORPUSCULAR VOLUME 98.3 fl (83.0-99.0); MEAN PLATELET VOLUME 10.2 fl (9.4-12.3); MONOCYTES ABSOLUTE AUTO 0.3 K/mm3 (0.0-0.8); MONOCYTES PERCENT AUTO 6.6 % (0.0-8.0); NEUTROPHILS ABSOLUTE AUTO 4.3 K/mm3 (1.8-7.7); NEUTROPHILS PERCENT AUTO 84.8 % (41.0-71.0); PLATELET COUNT,PLT 126 K/mm3 (150-400); RED BLOOD CELL COUNT 4.07 M/mm3 (4.10-5.30); WHITE BLOOD CELL COUNT,WBC 5.02 K/mm3 (3.9-11.3)
[2024-05-18 06:20] LABS: A/G RATIO 0.7 (1-2); ALBUMIN 1.8 g/dl (3.4-5.0); ANION GAP 11.2 (5-15); BILIRUBIN TOTAL 1.8 mg/dL (0.2-1.0); BUN/CREATININE RATIO 22.7 (14-18); CALCIUM 8.1 mg/dL (8.5-10.1); CREATININE 1.1 mg/dL (0.55-1.02); EST CRCL DRUG DOSING (CG) 36.7 mL/min; POTASSIUM,K 3.2 mEq/L (3.5-5.1); PROTEIN TOTAL,TP 4.3 g/dl (6.4-8.2)
[2024-05-18] MEDS: Furosemide 40 MG Tab PO SCH (11:02)
[2024-05-18] MEDS: Potassium Chloride 20 MEQ Tab.ER PO ONE (11:04)
[2024-05-18] MEDS: Pantoprazole 40 MG Tab.CR PO SCH (18:43)
[2024-05-19 06:07] LABS: BASOPHILS PERCENT AUTO 0.2 % (0.0-1.0); EOSINOPHILS ABSOLUTE AUTO 0.1 K/mm3 (0.0-0.4); EOSINOPHILS PERCENT AUTO 2.4 % (0.0-6.0); HEMATOCRIT 39.4 % (37.0-47.0); HEMOGLOBIN 12.9 gm/dl (12.0-16.0); IMMATURE GRAN ABSOLUTE AUTO 0.01 K/mm3 (0.00-0.05); IMMATURE GRAN PERCENT AUTO 0.2 % (0.0-0.4); LYMPHOCYTES ABSOLUTE AUTO 0.7 K/mm3 (1.0-4.8); LYMPHOCYTES PERCENT AUTO 15.1 % (24.0-44.0); MEAN CORPUSCULAR HEMOGLOBIN 31.8 pg (28.0-32.0); MEAN CORPUSCULAR HGB CONC 32.7 g/dl (32.0-36.0); MEAN PLATELET VOLUME 10.2 fl (9.4-12.3); MONOCYTES ABSOLUTE AUTO 0.3 K/mm3 (0.0-0.8); MONOCYTES PERCENT AUTO 5.8 % (0.0-8.0); NEUTROPHILS ABSOLUTE AUTO 3.4 K/mm3 (1.8-7.7); NEUTROPHILS PERCENT AUTO 76.3 % (41.0-71.0); PLATELET COUNT,PLT 134 K/mm3 (150-400); RED BLOOD CELL COUNT 4.06 M/mm3 (4.10-5.30); WHITE BLOOD CELL COUNT,WBC 4.49 K/mm3 (3.9-11.3)
[2024-05-19 07:00] LABS: A/G RATIO 0.8 (1-2); ANION GAP 6.1 (5-15); CALCIUM 8.7 mg/dL (8.5-10.1); EST CRCL DRUG DOSING (CG) 40.38 mL/min; POTASSIUM,K 3.1 mEq/L (3.5-5.1); PROTEIN TOTAL,TP 4.6 g/dl (6.4-8.2)
[2024-05-19] MEDS: Potassium Chloride 20 MEQ Tab.ER PO ONE (08:31)
[2024-05-19] MEDS: Furosemide 20 MG Tab PO SCH (13:23)
[2024-05-19] MEDS ORDERED: Albuterol/Ipratropium 3.0-0.5 MG/3 ML Neb Soln NEB PRN (14:45)
[2024-05-19] MEDS: Montelukast 10 MG Tab PO SCH (22:03)
[2024-05-20 05:46] LABS: BASOPHILS PERCENT AUTO 0.2 % (0.0-1.0); EOSINOPHILS ABSOLUTE AUTO 0.1 K/mm3 (0.0-0.4); EOSINOPHILS PERCENT AUTO 2.4 % (0.0-6.0); HEMATOCRIT 39.7 % (37.0-47.0); HEMOGLOBIN 13.1 gm/dl (12.0-16.0); IMMATURE GRAN ABSOLUTE AUTO 0.02 K/mm3 (0.00-0.05); IMMATURE GRAN PERCENT AUTO 0.5 % (0.0-0.4); LYMPHOCYTES ABSOLUTE AUTO 1.2 K/mm3 (1.0-4.8); LYMPHOCYTES PERCENT AUTO 27.9 % (24.0-44.0); MEAN CORPUSCULAR HEMOGLOBIN 31.7 pg (28.0-32.0); MEAN CORPUSCULAR VOLUME 96.1 fl (83.0-99.0); MEAN PLATELET VOLUME 10.3 fl (9.4-12.3); MONOCYTES ABSOLUTE AUTO 0.4 K/mm3 (0.0-0.8); MONOCYTES PERCENT AUTO 9.7 % (0.0-8.0); NEUTROPHILS ABSOLUTE AUTO 2.5 K/mm3 (1.8-7.7); NEUTROPHILS PERCENT AUTO 59.3 % (41.0-71.0); PLATELET COUNT,PLT 143 K/mm3 (150-400); RED BLOOD CELL COUNT 4.13 M/mm3 (4.10-5.30); WHITE BLOOD CELL COUNT,WBC 4.23 K/mm3 (3.9-11.3)
[2024-05-20 06:08] LABS: A/G RATIO 0.7 (1-2); ANION GAP 7.2 (5-15); CALCIUM 9.3 mg/dL (8.5-10.1); EST CRCL DRUG DOSING (CG) 40.38 mL/min; POTASSIUM,K 3.2 mEq/L (3.5-5.1); PROTEIN TOTAL,TP 4.7 g/dl (6.4-8.2)
[2024-05-20] MEDS: Potassium Chloride 10 MEQ Tab.ER PO SCH (08:22)
[2024-05-20] MEDS ORDERED: Magnesium Sulfate (4.06 MEQ/ML) 5 GM/10 ML SDV IV ONE (21:11)
[2024-05-20] MEDS: WATER IV SCH (23:21)
[2024-05-20] MEDS: MAGNESIUM SULFATE IV SCH (23:21)
[2024-05-21] MEDS: Piperacillin/Tazobactam 4.5 GM in Sodium Chloride 0.9% 100 ML IV SCH (00:48)
[2024-05-21 06:22] LABS: A/G RATIO 0.8 (1-2); ALBUMIN 2.3 g/dl (3.4-5.0); BUN/CREATININE RATIO 23.3 (14-18); CALCIUM 9.3 mg/dL (8.5-10.1); CREATININE 0.9 mg/dL (0.55-1.02); EST CRCL DRUG DOSING (CG) 44.86 mL/min; MAGNESIUM 1.3 mg/dL (1.8-2.4); PROTEIN TOTAL,TP 5.1 g/dl (6.4-8.2)
[2024-05-21] MEDS: Magnesium Sulfate/Water 4 GM in Premix Bag 1 BAG IV ONE (09:22)
[2024-05-21] MEDS: Potassium Chloride 20 MEQ Tab.ER PO ONE (09:22)
[2024-05-21] MEDS: Magnesium Oxide 400 MG Tab PO SCH (12:05)
== END 2024-05-21 14:11 | disposition home or self-care (01) | DRG 871 ==
LOC: JD.ED 11:14 → JD.MS 17:03
PROVIDERS: ADMIT Family Medicine; ATTEND Internal Medicine
DX: A41.9 Sepsis, unspecified organism (principal); R53.1 Weakness; R94.5 Abnormal results of liver function studies; J96.01 Acute respiratory failure with hypoxia; N39.0 Urinary tract infection, site not specified; F03.93 Unspecified dementia, unspecified severity, with mood disturbance; F03.94 Unspecified dementia, unspecified severity, with anxiety; Z16.29 Resistance to other single specified antibiotic; E87.20 Acidosis, unspecified; K80.10 Calculus of gallbladder with chronic cholecystitis without obstruction; J98.11 Atelectasis; I50.9 Heart failure, unspecified; R65.20 Severe sepsis without septic shock; Z66 Do not resuscitate; R79.89 Other specified abnormal findings of blood chemistry; K52.9 Noninfective gastroenteritis and colitis, unspecified; K21.9 Gastro-esophageal reflux disease without esophagitis; M19.90 Unspecified osteoarthritis, unspecified site; J45.909 Unspecified asthma, uncomplicated; E66.9 Obesity, unspecified; I11.0 Hypertensive heart disease with heart failure; I48.91 Unspecified atrial fibrillation; H54.7 Unspecified visual loss; R74.01 Elevation of levels of liver transaminase levels; M54.9 Dorsalgia, unspecified; M79.7 Fibromyalgia; M25.569 Pain in unspecified knee; I95.9 Hypotension, unspecified; R32 Unspecified urinary incontinence; E87.6 Hypokalemia; E83.42 Hypomagnesemia; Z88.8 Allergy status to other drugs, medicaments and biological substances; Z79.01 Long term (current) use of anticoagulants; Z79.52 Long term (current) use of systemic steroids; Z79.899 Other long term (current) drug therapy; Z68.36 Body mass index [BMI] 36.0-36.9, adult; Z90.89 Acquired absence of other organs; Z90.710 Acquired absence of both cervix and uterus
CPT/HCPCS: 0241U; 36415; 71046; 71275; 74177; 76705; 78227; 80053; 81001; 82248; 82947; 83605; 83735; 83880; 84484; 85007; 85025; 85027; 85610; 86140; 87040; 87493; 87641; 93005; 94640; 94760; 94761; 96361; 96365; 96375; 97110; 97161; 99285; 93010; A9270-GY; A9537; J2020; J2270; J2405; J2543; J3475; J3490; J7030; J7620-GY; Q9967